=== PATIENT | male | born 1995 | race Caucasian/White ===

== ENCOUNTER 2017-11-16 23:05 | Emergency (ER) | payer MEDICAID ==
[~2017-11-16] VITALS: Ht 5954.8 cm; Wt 68.5 kg
[~2017-11-16 23:05] MED LIST: CEPH500C5 PO; LIT300C PO; OLAN10TA3 PO; OLAN20TA3 PO
[2017-11-17 00:51] LABS: CLARITY,URINE Cloudy (Clear); COLOR,URINE Yellow (Yellow); GLUCOSE, URINE Negative (Neg); KETONES,URINE Negative (Neg); LEUKOCYTE ESTERASE ,URINE Negative (Neg); NITRITES, URINE Negative (Neg); OCCULT BLOOD,URINE Negative (Neg); PH,URINE 7.5 (4.8-8.0); PROTEIN,URINE Negative (Neg)
[2017-11-17 00:53] LABS: UA COLLECTION TYPE NON-SPECIFIED
[2017-11-17 01:01] LABS: AMORPHOUS PHOSPHATES 1+; BACTERIA,URINE FEW /HPF (Neg); MUCUS STRANDS NONE SEEN /LPF (Neg); RBC,URINE 0-2 /HPF (0-2); SQUAMOUS EPITHELIAL CELL,UR NONE SEEN /LPF (FEW); WBC,URINE 0-4 /HPF (0-4)
[2017-11-17 01:03] LABS: URINE AMPHETAMINE SCREEN POSITIVE (Neg); URINE BARBITUATE SCREEN NEGATIVE (Neg); URINE BENZODIAZEPINES SCREEN NEGATIVE (Neg); URINE CANNABINOID SCREEN POSITIVE (Neg); URINE COCAINE SCREEN NEGATIVE (Neg); URINE METHADONE SCREEN NEGATIVE (Neg); URINE OPIATE SCREEN NEGATIVE (Neg); URINE PHENCYCLIDINE SCREEN NEGATIVE (Neg)
[2017-11-17 01:09] LABS: BASOPHILS % (AUTO) 0.7 % (0-1); EOSINOPHILS # (AUTO) 0.1 X10'3 (0-0.9); EOSINOPHILS % (AUTO) 0.8 % (0-6); HEMATOCRIT 40.5 % (42.0-52.0); LYMPHOCYTES # (AUTO) 2.1 X10'3 (1.1-4.8); LYMPHOCYTES % (AUTO) 29.2 % (21-51); MEAN CORPUSCULAR HEMOGLOBIN 30.3 PG (27.0-31.0); MEAN CORPUSCULAR HGB CONC 34.6 % (33.0-36.5); MEAN CORPUSCULAR VOLUME 87.6 FL (78-98); MEAN PLATELET VOLUME 7.9 FL (7.4-10.4); MONOCYTES # (AUTO) 0.6 X10'3 (0-0.9); MONOCYTES % (AUTO) 8.8 % (2-12); NEUTROPHILS # (AUTO) 4.3 X10'3 (1.8-7.7); NEUTROPHILS % (AUTO) 60.5 % (42-75); PLATELET COUNT 205 X10'3 (140-440); RED BLOOD COUNT 4.63 X10'6 (4.70-6.10); RED CELL DISTRIBUTION WIDTH 13.1 % (11.5-14.5); WHITE BLOOD COUNT 7.1 X10'3 (4.5-11.0)
[2017-11-17 01:24] LABS: ALANINE AMINOTRANSFERASE 13 U/L (12-78); ALBUMIN 3.5 G/DL (3.4-5.0); ALBUMIN/GLOBULIN RATIO 1.2 (1.1-1.5); ALKALINE PHOSPHATASE 90 IU/L (46-116); ANION GAP 9 (8-16); ASPARTATE AMINO TRANSFERASE 15 U/L (10-37); BILIRUBIN,TOTAL 0.3 MG/DL (0.1-1.0); BLOOD UREA NITROGEN 17 MG/DL (7-18); CALCIUM 8.7 MG/DL (8.5-10.1); CHLORIDE 109 MMOL/L (99-107); CREATININE 0.63 MG/DL (0.60-1.10); ETHANOL < 0.010 GM/DL (0.0-0.010); GLUCOSE 96 MG/DL (70-104); POTASSIUM 3.9 MMOL/L (3.5-5.1); SODIUM 144 MMOL/L (135-145); TOTAL CARBON DIOXIDE 26.4 MMOL/L (24-32); TOTAL PROTEIN 6.4 G/DL (6.4-8.2); eGFR > 90 ML/MIN
[2017-11-17 10:06] VITALS: BP 94/68
== END 2017-11-17 10:16 | disposition home or self-care (01) ==
LOC: ER 23:06
DX: R45.851 Suicidal ideations (principal); F20.9 Schizophrenia, unspecified; F31.9 Bipolar disorder, unspecified; F12.10 Cannabis abuse, uncomplicated; F15.10 Other stimulant abuse, uncomplicated; F17.200 Nicotine dependence, unspecified, uncomplicated; Z59.0 Homelessness; Z79.899 Other long term (current) drug therapy
CPT/HCPCS: 36415; 80053; 80305; 80320; 81001; 84443; 85025; 99284

== ENCOUNTER 2019-07-05 20:46 | Emergency (ER) | payer MEDICAID ==
[~2019-07-05] VITALS: Ht 180.3 cm; Wt 110.0 kg
[~2019-07-05 20:46] MED LIST changes: -CEPH500C5 PO
[2019-07-05 21:46] LABS: CLARITY,URINE CLEAR (Clear); COLOR,URINE YELLOW (Yellow); GLUCOSE, URINE NEGATIVE (Neg); KETONES,URINE NEGATIVE (Neg); LEUKOCYTE ESTERASE ,URINE NEGATIVE (Neg); NITRITES, URINE NEGATIVE (Neg); OCCULT BLOOD,URINE TRACE-INTACT (Neg); PROTEIN,URINE 30 mg/dl (Neg); UROBILINOGEN,URINE 0.2 E.U/dL (0.2-1.0)
[2019-07-05 21:49] LABS: BASOPHILS % (AUTO) 0.1 % (0-1); EOSINOPHILS % (AUTO) 0 % (0-6); HEMATOCRIT 44.1 % (42.0-52.0); LYMPHOCYTES # (AUTO) 1.1 X10'3 (1.1-4.8); MEAN CORPUSCULAR HEMOGLOBIN 29.9 PG (27.0-31.0); MEAN CORPUSCULAR VOLUME 87.9 FL (78-98); MEAN PLATELET VOLUME 8.5 FL (7.4-10.4); MONOCYTES # (AUTO) 1.5 X10'3 (0-0.9); MONOCYTES % (AUTO) 9.2 % (2-12); NEUTROPHILS # (AUTO) 13.6 X10'3 (1.8-7.7); NEUTROPHILS % (AUTO) 83.7 % (42-75); PLATELET COUNT 226 X10'3 (140-440); RED BLOOD COUNT 5.02 X10'6 (4.70-6.10); RED CELL DISTRIBUTION WIDTH 12.7 % (11.5-14.5); WHITE BLOOD COUNT 16.2 X10'3 (4.5-11.0)
[2019-07-05 21:49] LABS: UA COLLECTION TYPE CLN CATCH MIDSTREAM
--- NOTE | 2019-07-05 21:51 | NUR ---
Patient brought over from main ER bed 9. Patient is calm and cooperative but maintains that he wants to, "cut my arteries."
[2019-07-05 21:53] LABS: BACTERIA,URINE NONE SEEN /HPF (Neg); MUCUS STRANDS FEW /LPF (Neg); RBC,URINE 0-2 /HPF (0-2); SQUAMOUS EPITHELIAL CELL,UR NONE SEEN /LPF (FEW); WBC,URINE NONE SEEN /HPF (0-4)
[2019-07-05 21:54] LABS: ALANINE AMINOTRANSFERASE 24 U/L (12-78); ALBUMIN 4.7 G/DL (3.4-5.0); ALBUMIN/GLOBULIN RATIO 1.3 (1.1-1.5); ALKALINE PHOSPHATASE 114 IU/L (46-116); ANION GAP 12 (8-16); ASPARTATE AMINO TRANSFERASE 22 U/L (10-37); BILIRUBIN,TOTAL 0.5 MG/DL (0.1-1.0); BLOOD UREA NITROGEN 15 MG/DL (7-18); BUN/CREATININE RATIO 10.9 (5.4-32.0); CALCIUM 9.5 MG/DL (8.5-10.1); CHLORIDE 107 MMOL/L (99-107); CREATININE 1.38 MG/DL (0.60-1.10); GLUCOSE 118 MG/DL (70-104); POTASSIUM 3.8 MMOL/L (3.5-5.1); SODIUM 143 MMOL/L (135-145); TOTAL CARBON DIOXIDE 24.4 MMOL/L (24-32); TOTAL PROTEIN 8.2 G/DL (6.4-8.2); eGFR 63 ML/MIN
[2019-07-05] MEDS ORDERED: CLOZ100T31 PO (21:54)
[2019-07-05] MEDS ORDERED: SERT25TA PO (21:54)
[2019-07-05] MEDS ORDERED: CLOZ50TA PO (21:54)
[2019-07-05] MEDS ORDERED: ATOM60CA PO (21:54)
[2019-07-05 22:00] LABS: URINE AMPHETAMINE SCREEN NEGATIVE (Neg); URINE BARBITUATE SCREEN NEGATIVE (Neg); URINE BENZODIAZEPINES SCREEN NEGATIVE (Neg); URINE CANNABINOID SCREEN POSITIVE (Neg); URINE COCAINE SCREEN NEGATIVE (Neg); URINE METHADONE SCREEN NEGATIVE (Neg); URINE OPIATE SCREEN NEGATIVE (Neg); URINE PHENCYCLIDINE SCREEN NEGATIVE (Neg)
--- NOTE | 2019-07-05 22:27 | NUR ---
Patient appears to sleep on left side with even, unlabored breathing.
[2019-07-05 22:37] LABS: ETHANOL < 0.010 GM/DL (0.0-0.010)
--- NOTE | 2019-07-06 | NUR ---
Patient continues to sleep supine.
--- NOTE | 2019-07-06 01:00 | NUR ---
Patient sleeping supine.
--- NOTE | 2019-07-06 02:48 | NUR ---
Patient continues to sleep supine.
--- NOTE | 2019-07-06 04:02 | NUR ---
Patient continues to sleep.
--- NOTE | 2019-07-06 05:19 | NUR ---
Patient is sleeping on his left side with even, unlabored breathing.
--- NOTE | 2019-07-06 06:00 | NUR ---
Patient is sleeping bed laying on back R.R. WNL
--- NOTE | 2019-07-06 08:00 | NUR ---
Patient is sleeping bed laying on back R.R. WNL
[2019-07-06] MEDS: sertraline 50mg tablet PO SCH (09:08)
--- NOTE | 2019-07-06 10:00 | NUR ---
patient in bed walking around every once in a while.
--- NOTE | 2019-07-06 12:00 | NUR ---
patient in bed on left side resting
--- NOTE | 2019-07-06 14:00 | NUR ---
Patient sitting up in bed
--- NOTE | 2019-07-06 16:00 | NUR ---
Lying down in bed
--- NOTE | 2019-07-06 18:00 | NUR ---
resting in bed
--- NOTE | 2019-07-06 18:37 | NUR ---
Assumed care of patient, pt. eating dinner at this time. Appears calm and cooperative
--- NOTE | 2019-07-06 20:30 | NUR ---
Pt. lying in bed at this time after receiving HS snack, he continues to present as pleasant and cooperative, however will laugh aloud to himself at times and appears to be responding to internal stimuli. He denies S/I at this time, and states, "I was just feeling stressed, but I feel better now." Pt. endorses A/V/THOMAS and reports the voices sometimes tell him to hurt himself or, "I see cars crashing." He reports contentment regarding his discharge plan to possibly go to [facility] and states he has been there before.
--- NOTE | 2019-07-06 20:50 | NUR ---
Nursing Note: Verified pt's HS dose of Clozaril (on bottles pt. brought from home) with pharmacy before administering.
[2019-07-06] MEDS: clozapine 25mg tablet PO SCH (20:53)
[2019-07-06] MEDS: clozapine 100mg tablet PO SCH (20:53)
--- NOTE | 2019-07-06 22:35 | NUR ---
Pt. asleep on his left side at this time, rr even and unlabored.
--- NOTE | 2019-07-07 00:39 | NUR ---
Pt. continues to sleep, laying on her right side at this time.
--- NOTE | 2019-07-07 02:03 | NUR ---
PT SLEEPING PEACFULLY , UNLABORED RESP, ON HIS RIGHT SIDE. IMDEPENDENTLY REPOSITIONS.
--- NOTE | 2019-07-07 02:33 | NUR ---
Pt. sleeping on his rt. side at this time, rr even and unlabored, will continue to monitor.
--- NOTE | 2019-07-07 04:33 | NUR ---
Pt. continues to appear to be resting comfortably, will continue to monitor.
--- NOTE | 2019-07-07 06:00 | NUR ---
Pt. asleep on his rt. side, rr even and unlabored
[2019-07-07] MEDS: sertraline 50mg tablet PO SCH (08:21)
[2019-07-07] MEDS ORDERED: LORazepam 1 MG tablet PO ONE (09:50)
--- NOTE | 2019-07-07 11:24 | NUR ---
Pt resting comfortably with eyes closed.
--- NOTE | 2019-07-07 12:58 | NUR ---
Pt talking with [facility] to discuss discharge plan.
--- NOTE | 2019-07-07 14:04 | NUR ---
Pt. currently sitting up in bed and resting. He is requesting extra food for lunch. Per primary RN, pt. recently received a snack after his lunch. Order for second tray has already been requested. Pt. made aware of this.
--- NOTE | 2019-07-07 14:41 | NUR ---
Pt resting in bed with eyes closed, unlabored breathing, RR even.
[2019-07-07] MEDS ORDERED: LORazepam 1 MG tablet PO PRN (16:20)
--- NOTE | 2019-07-07 16:45 | NUR ---
Operational Communication Chief noticed signs of anxiety aeb wringing of wrists and hypervigilance. Operational Communication Chief dispensed PRN Ativan. Pt thankful.
--- NOTE | 2019-07-07 18:35 | NUR ---
Patient reclining in bed awake. No distress observed. Continue to monitor.
--- NOTE | 2019-07-07 19:15 | NUR ---
Patient awake and alert. Patient states he is homeless and has been homeless for a long time. Patient states he doesn't have any family. Patient states he is depressed and suicidal off and on. Continue to monitor.
--- NOTE | 2019-07-07 20:10 | NUR ---
RN gave patient a sandwich and apple sauce. Continue to monitor.
[2019-07-07] MEDS: clozapine 100mg tablet PO SCH (20:55)
[2019-07-07] MEDS: clozapine 25mg tablet PO SCH (20:56)
--- NOTE | 2019-07-07 21:30 | NUR ---
Patient given a snack. No distress observed. Continue to monitor.
--- NOTE | 2019-07-07 23:03 | NUR ---
Pathe sleeping on right side. No distress observed. Continue to monitor.
--- NOTE | 2019-07-08 01:18 | NUR ---
Patient sleeping on left side. No distress observed. Continue to monitor.
--- NOTE | 2019-07-08 02:27 | NUR ---
Patient sleeping on left side. No distress observed. Continue to monitor.
--- NOTE | 2019-07-08 03:26 | NUR ---
Patient sleeping supine. No distress observed. Continue to monitor.
--- NOTE | 2019-07-08 04:08 | NUR ---
Patient up and asking for food. No food in fridge. Patient got a sandwich and applesauce for snack and then later another applesauce. Patient advised breakfast at 0800. Patient went back to bed. Continue to monitor.
--- NOTE | 2019-07-08 07:00 | NUR ---
Pt sleeping in bed on left side.
--- NOTE | 2019-07-08 07:48 | NUR ---
pt is laying on left side asleep, no distress.
[2019-07-08] MEDS: sertraline 50mg tablet PO SCH (08:04)
--- NOTE | 2019-07-08 09:00 | NUR ---
Woke up and ate breakfast. Took med without difficulty. Does not answer questions appropriately.
--- NOTE | 2019-07-08 09:12 | NUR ---
pt is sitting up on the side of the bed.
[2019-07-08 11:19] VITALS: BP 105/58
== END 2019-07-08 11:22 | disposition home or self-care (01) ==
LOC: ER 20:46
DX: R45.851 Suicidal ideations (principal); D75.1 Secondary polycythemia; F31.9 Bipolar disorder, unspecified; F20.9 Schizophrenia, unspecified; F12.90 Cannabis use, unspecified, uncomplicated; F15.90 Other stimulant use, unspecified, uncomplicated; Z79.899 Other long term (current) drug therapy; Z59.0 Homelessness
CPT/HCPCS: 36415; 80053; 80305; 80320; 81001; 84443; 85025; 99285

== ENCOUNTER 2019-07-08 10:09 | Inpatient (IN) | payer MEDICAID ==
[~2019-07-08] VITALS: Ht 180.3 cm; Wt 108.7 kg
[~2019-07-08 10:09] MED LIST changes: +ATOM60CA PO; +CLOZ100T31 PO; +CLOZ50TA PO; -LIT300C PO; -OLAN10TA3 PO; -OLAN20TA3 PO; +SERT25TA PO
[2019-07-08] MEDS ORDERED: loperamide 2mg capsule PO PRN (10:20)
[2019-07-08] MEDS ORDERED: magnesium hydroxide 30ml (MOM) UD suspension PO PRN (10:20)
[2019-07-08] MEDS ORDERED: NICOTINE POLACRILEX 2 MG LOZENGE BC PRN (10:20)
[2019-07-08] MEDS ORDERED: mag hydrox/Alum hydrox/simeth 30ml oral suspension PO PRN (10:20)
[2019-07-08] MEDS ORDERED: acetaminophen 325mg tablet PO PRN ×2 (10:20)
--- NOTE | 2019-07-08 11:25 | NUR ---
Client escorted to [facility] by ERICH Bermudez), two members of Security as well as this mortgage or loan underwriter. Client contracted verbally for safe transfer and unit behaviors. Current 5150 presented to CRN. Client is admitted as a Gravely Disabled adult. Initial assessment reveals a gentleman who is internally preoccupied but redirects with ease.Safety search conducted by ERICH Fuller x 2 per unit protocol. Belongings were stored per protocol. Client was escorted to shower and given instructions to shower and he complied with the request. Skin check was conducted nothing significant was identified.Client behavior is appropriate for unit and he did get verbal and physical orientation from Staff. Assessments will be conducted by this mortgage or loan underwriter. MRSA swab will be collected and sent for processing. Addendum: 07/08/19 at 1150 by Juan Craig) LUIS FERNANDO Pt admitted at 1125. Pt unable to adequately care for himself. Current safety plan consists of utilizing the Emergency room for food and assisted. Pt has possible diagnosis of paranoid schizophrenia. Pt has been found incompetent to stand trial and was admitted to [facility] as a result of being deemed gravely disabled. Pt unable to gain access to his most basic needs and is gravely disabled as a result of a mental health disorder.
[2019-07-08] MEDS: sertraline 50mg tablet PO SCH (11:30)
--- NOTE | 2019-07-08 11:51 | NUR ---
Acceptance: Edu Cornejoperrifelisa called and pt has been accepted at the [facility] after stabilized here.
[2019-07-08 12:48] VITALS: BP 149/94
--- NOTE | 2019-07-08 16:29 | NUR ---
Nursing Progress Note: Scotty Legal hold: 5150 Client on involuntary status for GD Report received from [facility] with use of SB[facility] Why are they here: Pt admitted for GD after he stopped taking his meds and was unable to motivate a plan for his own care. Client was recently admitted to [facility] as incompetant to stand trial. Assessment What has happened this shift: Assumed care of this client during admission process. Client appears internally preoccupied and will laugh at inappropriate times. Client was visible on unit this afternoon and was ambulating while socializing with both staff and peers alike. Admission assessment was conducted and client is fully admitted to Behavioral Health Unit. No behavior issues noted but client needs redirection at times. He verbally contracted for safe unit behaviors. No somatic complaints as of this writing (1507 hours). Client has been visible and social on the unit this afternoon. He smiles and greets both staff and peers and his behaviors have been appropriate. S/I, H/I: Denies A/VH: Denies, however appears internally preoccupied at times. Sleep: ADL's: Pt. requires some direction and prompting from staff Group attendance: no Were meds taken: Yes Any med S/E: no Mental Status Exam Appearance: Hair disheveled, pt. appropriately dressed Eye contact: Fair Behavior: Cooperative, impulsive Speech: pressured, pt. Mood: Affect: Labile Thought process: disorganized Thought Content: Cognition: A&O X4 Insight: Poor Judgment: Poor Interventions: PRN's used: nicotine lozenge Therapeutic interventions: Introduced self and established rapport, maintained a safe and therapeutic environment, ensured contract for safety, provided clear and simple instructions, attempted to reorient to reality, encouraged independent performance of ADLs, monitored behavior and need for intervention, and maintained Q 15 min safety checks. Restraints/seclusion/emergency medication: N/A
[2019-07-08] MEDS: hydrOXYzine 25 MG tablet PO PRN (16:59)
[2019-07-08] MEDS: LORazepam 1 MG tablet PO PRN (16:59)
[2019-07-08 20:00] VITALS: BP 139/87
[2019-07-08] MEDS: clozapine 25mg tablet PO SCH (20:36)
[2019-07-08] MEDS: clozapine 100mg tablet PO SCH (20:38)
--- NOTE | 2019-07-09 04:08 | NUR ---
Nursing Progress Note: Legal hold: 5150 Client on involuntary status for GD Report received from [facility] nurse with use of SBAR Why are they here: Pt admitted for GD after he stopped taking his meds and was unable to motivate a plan for his own care. Client was recently admitted to [facility] as incompetent to stand trial. Assessment What has happened this shift: Pt up and visible on the unit, pacing or sitting in dayroom. Pt pleasant upon approach. Pt stated he is here because he was hearing things in his head, but denies current internal stimuli. Pt denies suicidal thoughts. Pt also pleasant while interacting with peers. Pt up for snacks and then fell asleep at 2315. S/I, H/I: Denies A/VH: Denies, however appears internally preoccupied at times. Sleep: ADL's: Pt. requires some direction and prompting from staff Group attendance: no Were meds taken: Yes Any med S/E: no Mental Status Exam Appearance: Hair disheveled, pt. appropriately dressed Eye contact: Fair Behavior: Cooperative, impulsive Speech: pressured, pt. Mood: Affect: Labile Thought process: disorganized Thought Content: Cognition: A&O X4 Insight: Poor Judgment: Poor Interventions: PRN's used: nicotine lozenge Therapeutic interventions: Introduced self and established rapport, maintained a safe and therapeutic environment, ensured contract for safety, provided clear and simple instructions, attempted to reorient to reality, encouraged independent performance of ADLs, monitored behavior and need for intervention, and maintained Q 15 min safety checks. Restraints/seclusion/emergency medication: N/A
[2019-07-09 06:53] LABS: CHOL/HDL RATIO 3.1 (0.00-4.99); CHOLESTEROL 115 MG/DL (0-200); HDL CHOLESTEROL 37 MG/DL (35-60); LDL CHOLESTEROL 77 MG/DL (50-100); TRIGLYCERIDES 51 MG/DL (20-135)
[2019-07-09 07:51] VITALS: BP 127/81
[2019-07-09] MEDS: sertraline 50mg tablet PO SCH (08:03)
[2019-07-09] MEDS: LORazepam 1 MG tablet PO PRN (15:12)
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
[2019-07-09] MEDS: hydrOXYzine 25 MG tablet PO PRN (18:21)
[2019-07-09 20:00] VITALS: BP 179/80
[2019-07-09] MEDS: clozapine 25mg tablet PO SCH (20:25)
[2019-07-09] MEDS: clozapine 100mg tablet PO SCH (20:25)
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
[2019-07-10] MEDS: sertraline 50mg tablet PO SCH (07:49)
[2019-07-10 07:51] VITALS: BP 117/78
[2019-07-10] MEDS: hydrOXYzine 25 MG tablet PO PRN ×2 (12:11→22:09)
[2019-07-10] MEDS: LORazepam 1 MG tablet PO PRN (12:11)
--- NOTE | 2019-07-10 16:14 | NUR ---
Nursing Progress Note: Scotty Legal hold: 5150 Client on involuntary status for GD Report received from Avril Mueller with use of SBAR Why are they here: Pt admitted for GD after he stopped taking his meds and was unable to motivate a plan for his own care. Client was recently admitted to [facility] as incompetent to stand trial. Assessment What has happened this shift: Client in bed resting to begin the shift. Compliant with assessment, vitals and medications. Client attended morning Group and did participate. Client was beginning to get agitated about noon and was actively responding to internal stimuli. He was medicated with PRN medications and has had no behavioral issues as of this writing (1344 hours). Pt observed to be in bed resting with eyes closed at 1400 hours today. S/I, H/I: Denies A/VH: Denies, however appears internally preoccupied at times. Sleep: rested at times during shift. ADL's: Pt. requires some direction and prompting from staff Group attendance: no Were meds taken: Yes Any med S/E: no Mental Status Exam Appearance: Hair disheveled, pt. appropriately dressed Eye contact: Fair Behavior: Cooperative, impulsive Speech: Pressured speech Mood: Calm but anxious, labile at times. Affect: Flat Thought process: Linear but thought blocking. Thought Content: Poverty of thought Cognition: A&O X4 Insight: Poor Judgment: Poor Interventions: PRN's used: Ativan, Atarax Therapeutic interventions: Introduced self and established rapport, maintained a safe and therapeutic environment, ensured contract for safety, provided clear and simple instructions, attempted to reorient to reality, encouraged independent performance of ADLs, monitored behavior and need for intervention, and maintained Q 15 min safety checks. Addendum: 07/10/19 at 1635 by Baldev Franklin RN Client remains in bed with eyes closed and no sign or symptoms of distress or problems.([id number])
[2019-07-10 19:53] VITALS: BP 147/81
[2019-07-10] MEDS: clozapine 25mg tablet PO SCH (20:22)
[2019-07-10] MEDS: clozapine 100mg tablet PO SCH (20:23)
--- NOTE | 2019-07-10 21:10 | NUR ---
Nursing Progress Note: Scotty Legal hold: 5150 Client on involuntary status for GD Report received from Juan with use of SBAR Why are they here: Pt admitted for GD after he stopped taking his meds and was unable to motivate a plan for his own care. Client was recently admitted to [facility] as incompetent to stand trial. Assessment What has happened this shift: Client up watching football to begin the shift. Compliant with assessment, vitals and medications. Client attended morning Group and did participate. Client was social and showed no signs of agitation and reports the voices are not bothering him at this time. S/I, H/I: Denies A/VH: Denies, however appears internally preoccupied at times. Sleep: rested at times during shift. ADL's: Pt. requires some direction and prompting from staff Group attendance: no Were meds taken: Yes Any med S/E: no Mental Status Exam Appearance: Hair disheveled, pt. appropriately dressed Eye contact: Fair Behavior: Cooperative, impulsive Speech: Pressured speech Mood: Calm but anxious, labile at times. Affect: Flat Thought process: Linear but thought blocking. Thought Content: Poverty of thought Cognition: A&O X4 Insight: Poor Judgment: Poor Interventions: PRN's used: Therapeutic interventions: Introduced self and established rapport, maintained a safe and therapeutic environment, ensured contract for safety, provided clear and simple instructions, attempted to reorient to reality, encouraged independent performance of ADLs, monitored behavior and need for intervention, and maintained Q 15 min safety checks.
[2019-07-11 07:28] LABS: BASOPHILS % (AUTO) 0.3 % (0-1); EOSINOPHILS # (AUTO) 0.2 X10'3 (0-0.9); HEMOGLOBIN 14.4 g/dl (14.0-17.9); MONOCYTES # (AUTO) 1.4 X10'3 (0-0.9); RED BLOOD COUNT 4.83 X10'6 (4.70-6.10)
[2019-07-11 07:30] LABS: EOSINOPHILS % (AUTO) 1.3 % (0-6); HEMATOCRIT 43.4 % (42.0-52.0); LYMPHOCYTES # (AUTO) 1.9 X10'3 (1.1-4.8); MEAN CORPUSCULAR HEMOGLOBIN 29.8 PG (27.0-31.0); MEAN CORPUSCULAR HGB CONC 33.2 g/dL (33.0-36.5); MEAN CORPUSCULAR VOLUME 89.7 FL (78-98); MEAN PLATELET VOLUME 8.5 FL (7.4-10.4); MONOCYTES % (AUTO) 10.2 % (2-12); NEUTROPHILS # (AUTO) 10.1 X10'3 (1.8-7.7); NEUTROPHILS % (AUTO) 74.2 % (42-75); PLATELET COUNT 209 X10'3 (140-440); RED CELL DISTRIBUTION WIDTH 12.9 % (11.5-14.5); WHITE BLOOD COUNT 13.7 X10'3 (4.5-11.0)
[2019-07-11 08:00] VITALS: BP 109/57
--- NOTE | 2019-07-11 08:07 | NUR ---
Met with Ct to complete Psychosocial Assessment. He was in bed and answered questions appropriately. He reported he was released from [place] on 07/06/19 and transported to [place]. He has no income, no housing, and is not connected to any mental health services. He reported he would like to go to [facility] upon discharge. Ticket Chopper Assembler will complete [facility] referral. MATTHIEU Strange Addendum: 07/11/19 at 0811 by Spring iYng Amended: Links added.
[2019-07-11] MEDS: sertraline 50mg tablet PO SCH (08:13)
--- NOTE | 2019-07-11 11:21 | NUR ---
Discharge Planning Called [facility] office to see if a [facility] referral had been done. Gina did a [facility] referral. Truck Despatcher will complete Physician's Report and request a PPD. MATTHIEU Strange
[2019-07-11] MEDS ORDERED: tuberculin, purif. prot. deriv. 5 units/0.1ml ID ONE (11:55)
--- NOTE | 2019-07-11 13:13 | NUR ---
Completed Physician's Report and MIRI Cristina, signed it. Faxed to JUDI office.Will fax PPD results once it is read. Ct will need to walk-in through [facility] to start services per JUDI Eng. MATTHIEU Strange
--- NOTE | 2019-07-11 16:49 | NUR ---
Nursing Progress Note: Legal hold: 5150 Client on involuntary status for GD Report received from Yolanda with use of SBAR Why are they here: Pt admitted for GD after he stopped taking his meds and was unable to motivate a plan for his own care. Client was recently admitted to [facility] as incompetent to stand trial. Assessment What has happened this shift: Patient is observed sleeping at dietrich eof shift. He wakes and joins others in the group room for breakfast. He is friendly and smiling. He states that he is doing well. He reports that he slept well the night before. He takes his medication without any issue. He spends most of the day isolating in his room with the blankets pulled up to his chin. During conversation patient is calm and states that he is fine, he denies any issue. PPD placed in patients RFA at 1250 A/VH: Denies, however appears internally preoccupied at times. Sleep: rested at times during shift. ADL's: Pt. requires some direction and prompting from staff Group attendance: no Were meds taken: Yes Any med S/E: no Mental Status Exam Appearance: Hair disheveled, pt. appropriately dressed Eye contact: direct Behavior: Cooperative Speech: soft tone, normal rate and rythm Mood: Calm Affect: bright Thought process: Linear Thought Content: Poverty of thought Cognition: A&O X4 Insight: Poor Judgment: Poor Interventions: PRN's used: none Therapeutic interventions: 1:1 therapeutic assessment, maintained safe therapeutic milieu, provided active listening with positive reinforcement, provided medication administration/education/monitoring as needed; Q15 safety checks. Restraints/seclusion/emergency medication: N/A Justification of Continued Inpatient Treatment: Continued therapeutic support and medication management needed to provide stabilization, prevent decompensation, improve coping mechanisms decreasing risk to patient and re-admittance. Addendum: 07/11/19 at 1718 by Susie Mishra RN Patient observed walking the jama and talking to self. He stated "Shes having her period, its red and brown blood."
[2019-07-11] MEDS: hydrOXYzine 25 MG tablet PO PRN (19:05)
[2019-07-11 20:00] VITALS: BP 141/83
[2019-07-11] MEDS: clozapine 25mg tablet PO SCH (20:28)
[2019-07-11] MEDS: clozapine 100mg tablet PO SCH (20:28)
[2019-07-11 21:05] VITALS: BP 141/83
--- NOTE | 2019-07-11 23:52 | NUR ---
Nursing Progress Note: Legal hold: 5150 Client on involuntary status for GD Report received from Susie with use of SBAR Why are they here: Pt admitted for GD after he stopped taking his meds and was unable to motivate a plan for his own care. Client was recently admitted to [facility] as incompetent to stand trial. Assessment What has happened this shift: Pt is anxiously pacing in the jama at change of shift, smiling brightly. Pt states he is here because he was having suicidal thoughts but is no longer having them. Pt then adds that he was seeing "trippy things like starships and lights, its was pretty cool really". Pt denies a/vh now but is internally preoccupied and isolates to himself. Pt reports appetite and sleep are good. Pt is med compliant. A/VH: Denies, however appears internally preoccupied at times. Sleep: reports sleeping well ADL's: Pt. requires some direction and prompting from staff Group attendance: no Were meds taken: Yes Any med S/E: no Mental Status Exam Appearance: Hair disheveled, pt. appropriately dressed Eye contact: direct Behavior: Cooperative Speech: soft tone, normal rate and rythm Mood: euthymic Affect: bright Thought process: Linear Thought Content: Poverty of thought Cognition: A&O X4 Insight: Poor Judgment: Poor Interventions: PRN's used: none Therapeutic interventions: 1:1 therapeutic assessment, maintained safe therapeutic milieu, provided active listening with positive reinforcement, provided medication administration/education/monitoring as needed; Q15 safety checks. Restraints/seclusion/emergency medication: N/A Justification of Continued Inpatient Treatment: Continued therapeutic support and medication management needed to provide stabilization, prevent decompensation, improve coping mechanisms decreasing risk to patient and re-admittance.
[2019-07-12 07:46] VITALS: BP 97/65
[2019-07-12] MEDS: sertraline 50mg tablet PO SCH (08:20)
--- NOTE | 2019-07-12 10:36 | NUR ---
Initial: Pt admit with schizophrenia currently on a regular diet documented with 75-100% PO intake meeting nutrient needs. LBM 07/11. No edema or wounds. No nutrition diagnosis at this time. Will continue to follow. Recommendations: 1) Continue regular diet 2) Bowel care PRN 3) Weekly wts Addendum: 07/12/19 at [address] Amended: Links added.
--- NOTE | 2019-07-12 13:15 | NUR ---
DISCHARGE PLANNING Ct has been accepted at [facility]. Spoke to Augustine who confirmed this and stated Ct can be admitted tomorrow with 30 days of meds. Will coordinate with [facility] office tomorrow for Ct's admittance once meds have been delivered. MATTHIEU Strange
[2019-07-12] MEDS ORDERED: CLOZ100T13 PO (13:38)
[2019-07-12] MEDS ORDERED: NICO-668 BC (13:38)
[2019-07-12] MEDS ORDERED: CLOZ25TA12 PO (13:38)
[2019-07-12] MEDS ORDERED: SERT50TA10 PO (13:38)
[2019-07-12] MEDS: hydrOXYzine 25 MG tablet PO PRN (15:22)
--- NOTE | 2019-07-12 16:12 | NUR ---
Nursing Progress Note: Legal hold: 5150 Client on involuntary status for GD Report received from Yolanda with use of SBAR Why are they here: Pt admitted for GD after he stopped taking his meds and was unable to motivate a plan for his own care. Client was recently admitted to [facility] as incompetent to stand trial. Assessment What has happened this shift: Patient is observed sleeping at change of shift. This RN woke patient for breakfast. He wakes up smiling and states that he slept well. He takes his medications without issue and joins others in the group room to eat. He charges his ankle monitor while coloring with peers. He gets along well with others and joins in on activities. Patient request to shave. He is polite and uses good manners. RN observes patient talking to self in the jama, patient denies A/H or any needs/issues. When answering questions patient pauses before answers and often smiles and nods. In the afternoon, patient approaches this RN stating I need some medications, and reports that his head is spinning. RN administered atarax. A/VH: Denies, however appears internally preoccupied at times. Sleep: 8hrs NOC ADL's: patient shaved today Group attendance: yes Were meds taken: Yes Any med S/E: no Mental Status Exam Appearance: hair brushed, pt. appropriately dressed Eye contact: direct Behavior: Cooperative, friendly Speech: soft tone, normal rate and rhythm Mood: happy Affect: bright Thought process: Linear Thought Content: Poverty of thought Cognition: A&O X4 Insight: Poor Judgment: Poor Interventions: PRN's used: atarax for anxiety Therapeutic interventions: 1:1 therapeutic assessment, maintained safe therapeutic milieu, provided active listening with positive reinforcement, provided medication administration/education/monitoring as needed; Q15 safety checks. Restraints/seclusion/emergency medication: N/A Justification of Continued Inpatient Treatment: Continued therapeutic support and medication management needed to provide stabilization, prevent decompensation, improve coping mechanisms decreasing risk to patient and re-admittance.
[2019-07-12] MEDS: clozapine 25mg tablet PO SCH (20:02)
[2019-07-12] MEDS: clozapine 100mg tablet PO SCH (20:02)
[2019-07-12 20:07] VITALS: BP 144/69
--- NOTE | 2019-07-12 21:54 | NUR ---
Nursing Progress Note: Legal hold: 5150 Client on involuntary status for GD Report received from Stu with use of SBAR Why are they here: Pt admitted for GD after he stopped taking his meds and was unable to motivate a plan for his own care. Client was recently admitted to [facility] as incompetent to stand trial. Assessment What has happened this shift: Pt was in the hallway at change of shift. Pt spent time socializing with other patients in the group room. Pt is smiling and pleasant, states he is doing good and denies s/i. He denies a/vh, but appears internally preoccupied at times. Pt reports some anxiety about going to the [facility] but he has been there before and thinks it will be a good place for him. pt reports sleeping well last night and he is appetite is good, pt is med compliant, has snacks before going to bed. A/VH: Denies, however appears internally preoccupied at times. Sleep: sleeps well ADL's: independent Group attendance: no evening groups, Were meds taken: Yes Any med S/E: no Mental Status Exam Appearance: adequately groomed and dressed Eye contact: direct Behavior: Cooperative, friendly Speech: soft tone, normal rate and rhythm Mood: euthymic Affect: bright Thought process: Linear Thought Content: Poverty of thought Cognition: A&O X4 Insight: Poor Judgment: Poor Interventions: PRN's used: none Therapeutic interventions: 1:1 therapeutic assessment, maintained safe therapeutic milieu, provided active listening with positive reinforcement, provided medication administration/education/monitoring as needed; Q15 safety checks. Restraints/seclusion/emergency medication: N/A Justification of Continued Inpatient Treatment: Continued therapeutic support and medication management needed to provide stabilization, prevent decompensation, improve coping mechanisms decreasing risk to patient and re-admittance.
[2019-07-13 07:37] VITALS: BP 119/70
[2019-07-13] MEDS: sertraline 50mg tablet PO SCH (08:21)
--- NOTE | 2019-07-13 14:49 | NUR ---
Nursing Discharge Note Patient is escorted off the unit at 1301 accompanied by this RN and [facility] boom truck driver. Patient will be transported to [facility]. All valuables, including medications are provided back to patient. Followup instructions are gone over with patient and printed handout provided. Patient states that he feels good and is happy that he came here. He states that he was not feeling well. Patients mood is happy and his affect is bright, he has improved since admit. Patient is not under any physical or emotional distress. Nicotine replacement provided to patient.
== END 2019-07-13 13:01 | disposition short-term general hospital (02) | DRG 750 ==
LOC: ADULT MH 10:09
PROVIDERS: ADMIT Psychiatry & Neurology Psychiatry; ATTEND Psychiatry & Neurology Psychiatry
DX: F20.9 Schizophrenia, unspecified (principal); R45.851 Suicidal ideations; Z59.0 Homelessness; F17.210 Nicotine dependence, cigarettes, uncomplicated; F32.9 Major depressive disorder, single episode, unspecified; Z79.899 Other long term (current) drug therapy
CPT/HCPCS: 36415; 80061; 83036; 85025; 87081; 99285; Z7610

== ENCOUNTER 2019-07-18 19:18 | Emergency (ER) | payer MEDICAID, OTHER ==
[~2019-07-18] VITALS: Ht 180.3 cm; Wt 100.0 kg
[~2019-07-18 19:18] MED LIST changes: -ATOM60CA PO; +CLOZ100T13 PO; -CLOZ100T31 PO; +CLOZ25TA12 PO; -CLOZ50TA PO; +NICO-668 BC; -SERT25TA PO; +SERT50TA10 PO
[2019-07-18 20:41] LABS: BASOPHILS % (AUTO) 0.3 % (0-1); EOSINOPHILS # (AUTO) 0.2 X10'3 (0-0.9); HEMATOCRIT 41.4 % (42.0-52.0); HEMOGLOBIN 13.9 g/dl (14.0-17.9); LYMPHOCYTES # (AUTO) 1.5 X10'3 (1.1-4.8); LYMPHOCYTES % (AUTO) 9.9 % (21-51); MEAN CORPUSCULAR HEMOGLOBIN 29.7 PG (27.0-31.0); MEAN CORPUSCULAR HGB CONC 33.7 g/dL (33.0-36.5); MEAN CORPUSCULAR VOLUME 88.1 FL (78-98); MEAN PLATELET VOLUME 8.4 FL (7.4-10.4); MONOCYTES # (AUTO) 1.6 X10'3 (0-0.9); MONOCYTES % (AUTO) 10.4 % (2-12); NEUTROPHILS # (AUTO) 12.3 X10'3 (1.8-7.7); NEUTROPHILS % (AUTO) 78.4 % (42-75); PLATELET COUNT 242 X10'3 (140-440); RED BLOOD COUNT 4.69 X10'6 (4.70-6.10); RED CELL DISTRIBUTION WIDTH 12.9 % (11.5-14.5); WHITE BLOOD COUNT 15.7 X10'3 (4.5-11.0)
[2019-07-18 20:46] LABS: URINE AMPHETAMINE SCREEN NEGATIVE (Neg); URINE BARBITUATE SCREEN NEGATIVE (Neg); URINE BENZODIAZEPINES SCREEN NEGATIVE (Neg); URINE CANNABINOID SCREEN POSITIVE (Neg); URINE COCAINE SCREEN NEGATIVE (Neg); URINE METHADONE SCREEN NEGATIVE (Neg); URINE OPIATE SCREEN NEGATIVE (Neg); URINE PHENCYCLIDINE SCREEN NEGATIVE (Neg)
[2019-07-18 20:48] LABS: ALANINE AMINOTRANSFERASE 45 U/L (12-78); ALBUMIN 3.9 G/DL (3.4-5.0); ALBUMIN/GLOBULIN RATIO 1.1 (1.1-1.5); ALKALINE PHOSPHATASE 130 IU/L (46-116); ANION GAP 12 (8-16); ASPARTATE AMINO TRANSFERASE 52 U/L (10-37); BILIRUBIN,TOTAL 0.5 MG/DL (0.1-1.0); BLOOD UREA NITROGEN 21 MG/DL (7-18); BUN/CREATININE RATIO 21.4 (5.4-32.0); CHLORIDE 103 MMOL/L (99-107); CREATININE 0.98 MG/DL (0.60-1.10); GLUCOSE 102 MG/DL (70-104); POTASSIUM 3.4 MMOL/L (3.5-5.1); SODIUM 140 MMOL/L (135-145); TOTAL CARBON DIOXIDE 25.3 MMOL/L (24-32); TOTAL PROTEIN 7.5 G/DL (6.4-8.2); eGFR > 90 ML/MIN
[2019-07-18 20:57] LABS: ETHANOL < 0.010 GM/DL (0.0-0.010)
--- NOTE | 2019-07-18 21:30 | NUR ---
pt sitting up in bed, frequently moving his hands in bizarre fashion. occasionally quietly laughs or talks aloud. pt came in with elevated HR. Carlos A STANFORD called and asked for pt to drink a pitcher of water and retake HR. it is now 105.
--- NOTE | 2019-07-18 23:11 | NUR ---
pt sleeping on his back. resp even/unlabored
--- NOTE | 2019-07-19 00:56 | NUR ---
another pt in overflow across the room made claims this pt was touching himself innapropriately under blanket. did not actively see this however I approached pt and told him he is in the hospital with other patients in the unit and he should not be doing anything innappropriate to which he replied "yes ma'am". pt returned to sleep with hands on chest. resp even/unlabored
--- NOTE | 2019-07-19 02:24 | NUR ---
pt continues sleeping on back. resp even/unlabored
--- NOTE | 2019-07-19 04:15 | NUR ---
pt sleeping on right side. resp even/unlabored
[2019-07-19 05:55] VITALS: BP 98/59
--- NOTE | 2019-07-19 05:58 | NUR ---
VS obtained. pt back to sleep on his side
--- NOTE | 2019-07-19 07:10 | NUR ---
PACKET FAXED TO [facility]
--- NOTE | 2019-07-19 07:21 | NUR ---
ASSUMED CARE OF THIS PT. HE IS RESTING IN BED PEACEFULLY AT THIS TIME. NO DISTRESS NOTED OR OBSERVED. WILL CONTINUE TO MONITOR.
--- NOTE | 2019-07-19 08:54 | NUR ---
PT IS MINISTERIO JUSTICULATING AND SHAKING HIS HANDS. HE ATE HIS BREAKFAST AND IS PLEASANT AND COOPERATIVE WITH CARE. HE IS SEEN AMBULATING TO THE BATHROOM AND HAS A WIDE GAIT, CONTINUES TO GESTICULATE, SNAPS HIS FINGERS AND APPEARS TO BE RESPONDING TO INTERNAL STIMULI, LAUGHING INAPPROPRIATELY AND TALKING TO PEOPLE WHO ARE NOT THERE. WILL CONTINUE TO MONITOR.
--- NOTE | 2019-07-19 10:24 | NUR ---
LLUVIA Argueta is at bedside evaluating the Pt. No distress observed. Prior to evaluation this ticket writer helped the Pt wipe down his body with cleansing wipes. Pt has an ankle monitor on his left ankle. Will continue to monitor.
--- NOTE | 2019-07-19 11:05 | NUR ---
Pt laying in bed with continued gesticulation. He is pleasant and cooperative. No distress observed. Will continue to monitor.
--- NOTE | 2019-07-19 12:44 | NUR ---
Pt is sitting in bed eating his lunch right now. He is still exhibiting bizarre behavior, gesticulating, rocking back and forth, and laughing intermittently. Will continue to monitor.
--- NOTE | 2019-07-19 13:37 | NUR ---
pt awake and sitting on the edge of bed. no needs at this time
== END 2019-07-19 14:09 ==
LOC: ER 19:19
DX: F29 Unspecified psychosis not due to a substance or known physiological condition (principal); F31.9 Bipolar disorder, unspecified; F20.9 Schizophrenia, unspecified; F17.200 Nicotine dependence, unspecified, uncomplicated; F12.90 Cannabis use, unspecified, uncomplicated; F15.90 Other stimulant use, unspecified, uncomplicated; F10.99 Alcohol use, unspecified with unspecified alcohol-induced disorder; Z59.0 Homelessness; Z79.899 Other long term (current) drug therapy; Y90.9 Presence of alcohol in blood, level not specified
CPT/HCPCS: 36415; 80053; 80305; 80320; 85025; 99285

== ENCOUNTER 2019-07-19 11:48 | Inpatient (IN) | payer MEDICAID ==
[~2019-07-19] VITALS: Ht 180.3 cm; Wt 115.3 kg
[2019-07-19] MEDS ORDERED: sertraline 50mg tablet PO ONE (15:25)
[2019-07-19] MEDS ORDERED: LORazepam 1 MG tablet PO PRN (15:50)
[2019-07-19] MEDS ORDERED: magnesium hydroxide 30ml (MOM) UD suspension PO PRN (15:50)
[2019-07-19] MEDS ORDERED: loperamide 2mg capsule PO PRN (15:50)
[2019-07-19] MEDS ORDERED: mag hydrox/Alum hydrox/simeth 30ml oral suspension PO PRN (15:50)
[2019-07-19] MEDS: OLANZapine 5mg rapidly disint. tablet PO PRN (16:22)
[2019-07-19] MEDS: LORazepam 1 MG tablet PO PRN ×2 (16:22→20:39)
--- NOTE | 2019-07-19 16:54 | NUR ---
NURSING ADMISSION NOTE Pt was admitted to [facility] on 07/19/2019 at 1410 from ED. Pt came up with minimal belongings which were inventoried. 2RN skin check was completed, pt has blisters on his feet bilaterally, pictures are in chart. PT showered and clothing was changed upon arrival. Pt is psychotic and difficult to interview d/t constant AH VH which are bothersome to him. Pt is cooperative and pleasant despite his poor attention span. Pt is a poor historian. 5150 for GD advisement completed. Pt states that he is "Messed in the head." Pt has poor insight and is unable to recall short term memory AEB not remembering why he stopped taking medications on 07/15 and why he left the [facility] without returning on the . Pt is found talking to pictures in the hallways and contorting his body in a bizarre fashion. Zyprexa Zydis and Ativan PRN were administered.
[2019-07-19 20:00] VITALS: BP 111/60
[2019-07-19] MEDS: clozapine 25mg tablet PO SCH (20:37)
[2019-07-19] MEDS: clozapine 100mg tablet PO SCH (20:37)
--- NOTE | 2019-07-20 00:32 | NUR ---
Nursing Progress Note: Legal hold: 5150 Client on involuntary status for GD Report received from nurse with use of SBAR: Stu RN Why are they here: Pt presents to the ER with psychosis and is a poor historian. He reports constant A/V/THOMAS which are bothersome to him. Pt states that he is "Messed in the head." He has poor insight and is unable to recall short term memory AEB not remembering why he stopped taking medications on 07/15, and why he left the [facility] without returning on the . Pt. also reports S/I with a plan to cut himself. Assessment What has happened this shift: Pt. laying in bed at the beginning of the shift, this procedure writer introduced self and attempted to establish rapport. When questioned in regard to how he is feeling, pt. stated, "I'm not doing good, I'm tripping out." Pt. presents as anxious and internally preoccupied, however reports that previously administered PRN Ativan and Zyprexa did help him. He voices contentment with awaiting next PRN dose of Ativan. Pt. later attends snack and sits up in the Group Room watching TV and interacting minimally with others before returning to bed. 1:1 completed at bedside, pt's affect is constricted, and he appears somewhat guarded and fatigued. Pt endorses command A/THOMAS however has trouble describing what they say, states, "They tell me to do this, and then that." Also V/THOMAS of, "Buildings and stuff." When questioned by this procedure writer regarding S/I, pt. reports a plan to cut his wrists with a spinner box. He requests PRN Ativan at , administered with effectiveness and will continue to monitor. S/I, H/I: S/I with a plan to cut his wrists with a razor blade A/VH: Command A/THOMAS, and V/THOMAS of "Buildings and stuff." Sleep: Pt. appears to be resting comfortably ADL's: Pt. requires direction and prompting Group attendance: Pt. attends snack Were meds taken: Yes Any med S/E: None Mental Status Exam Appearance: Slightly disheveled, appropriately dressed Eye contact: Fair Behavior: Cooperative, anxious, guarded, and fatigued Speech: Soft, mumbled, and responds only to questions Mood: Anxious and pleasant Affect: Constricted Thought process: Tangental with thought blocking Thought Content: A/V/THOMAS and possible paranoid delusions Cognition: A&O X3 (not to time) Insight: Poor Judgment: Poor Interventions PRN's used: Ativan Therapeutic interventions: Introduced self and established rapport, ensured contract for safety, provided clear and simple instructions, reoriented to reality, monitored behaviors and need for intervention, minimized environmental stimulation, and maintained Q 15 min safety checks. Restraints/seclusion/emergency medication: N/A Justification of Continued Inpatient Treatment: Pt. requires interruption of current crisis, medication adjustments, and a safe and supportive environment.
[2019-07-20 07:14] VITALS: BP 95/50
[2019-07-20 07:54] LABS: CHOLESTEROL 129 MG/DL (0-200); HDL CHOLESTEROL 32 MG/DL (35-60); LDL CHOLESTEROL 82 MG/DL (50-100); TRIGLYCERIDES 109 MG/DL (20-135)
[2019-07-20] MEDS: nicotine 21mg patch - 24 hr TD SCH (08:10)
--- NOTE | 2019-07-20 12:35 | NUR ---
SS note, informed consent: During AM psychosocial assessment, Ct received and indicated agreement/understanding of informed consent information from Grace Carlos LCSW.
--- NOTE | 2019-07-20 15:32 | NUR ---
SS met w/pt today and utilized CBT & AK strategies to engage pt in completing his bio-psychosocial assessment. SS provided Informed Consent (confidentiality, limits of confidentiality, tarasoff, 5150 & reporting obligations). Pt acknowledged understanding of the informed consent information. Pt was lethargic, lying in bed eyes closed but answering questions and participating in the assessment. There were many pauses from pt, but when prompted pt able to resume the interview. Pt signed TP & GAVINO. Shirin Carlos LCSW Addendum: 07/20/19 at 1542 by Shirin BEAN Amended: Links added.
--- NOTE | 2019-07-20 15:44 | NUR ---
Nursing Progress Note Legal hold: 5150 Client on involuntary status for GD Report received from nurse, LUIS FERNANDO Guerrero with use of SBAR Why are they here: 5150 written by [facility] for GD. Pt was found to be responding to internal stimuli and unable to formulate a safe plan for food, fpc and clothing. Pt states that he is "Messed in the head." Pt has poor insight and is unable to recall short term memory AEB not remembering why he stopped taking medications on 07/15 and why he left the [facility] without returning on the . Pt is found talking to pictures in the hallways and contorting his body in a bizarre fashion. Zyprexa Zydis and Ativan PRN were administered. Assessment What has happened this shift: At breakfast time pt states he is not feeling well and wants to sleep so he slept through breakfast. Although cooperative with AM assessment responses were brief. He later was up for snack and lunch both times returning straight back to bed. S/I, H/I: Denies A/VH: Unable to assess Sleep: Slept most of the shift ADL's: independent Group attendance: No Were meds taken: yes Any med S/E: none noted or reported Mental Status Exam Appearance: hospital gown from admit Eye contact: poor Behavior: slept all shift Speech: normal rate and rhythm Mood: cooperative Affect: slept unsure Thought process: he just wants to sleep Thought Content: "tired" Cognition: WNL's Insight: fair Judgment: poor Interventions: PRN's used: N/A Therapeutic interventions:Prompts and encouragement for meals and groups; therapeutic communication; medication administration/monitoring/education; q 15 sin safety checks. Restraints/seclusion/emergency medication: N/A Justification: Pt admitted for GD unable to formulate a plan for food, clothing and fpc after not taking his medications as prescribed after discharge. He is in need of medication stabilization and housing.
[2019-07-20 17:30] LABS: CLARITY,URINE CLEAR (Clear); COLOR,URINE YELLOW (Yellow); GLUCOSE, URINE NEGATIVE (Neg); KETONES,URINE NEGATIVE (Neg); LEUKOCYTE ESTERASE ,URINE NEGATIVE (Neg); NITRITES, URINE NEGATIVE (Neg); OCCULT BLOOD,URINE NEGATIVE (Neg); PH,URINE 6.5 (4.8-8.0); PROTEIN,URINE NEGATIVE (Neg)
[2019-07-20 17:33] LABS: UA COLLECTION TYPE CLN CATCH MIDSTREAM
[2019-07-20 20:00] VITALS: BP 113/72
--- NOTE | 2019-07-20 21:00 | NUR ---
Nursing Note: Pt. reported prior removal of Nicotine Patch.
[2019-07-20] MEDS: clozapine 100mg tablet PO SCH (21:06)
[2019-07-20] MEDS: clozapine 25mg tablet PO SCH (21:07)
--- NOTE | 2019-07-21 02:48 | NUR ---
Nursing Progress Note: Legal hold: 5150 Client on involuntary status for GD Report received from nurse with use of SBAR: LUIS FERNANDO Martinez Why are they here: Pt presents to the ER with psychosis and is a poor historian. He reports constant A/V/THOMAS which are bothersome to him. Pt states that he is "Messed in the head." He has poor insight and is unable to recall short term memory AEB not remembering why he stopped taking medications on 07/15, and why he left the [facility] without returning on the . Pt. also reports S/I with a plan to cut himself. Assessment What has happened this shift: Pt. up walking in the hallway and interacting appropriately with another male patient on the unit at the beginning of the shift, and throughout the shift. He attends HS snack and is observed by this television script writer to be laughing and joking with his new friend in the Group Room. 1:1 completed, and when questioned by this television script writer regarding any ongoing H/A, pt. inappropriately laughed and stated, "I don't know, do I?" However, he later admits that he has not experienced any A/V/THMOAS this shift, he states, " They are better, I just hear the fan running right now." He continues to endorse S/I, with a plan to cut his wrists with a dry box operator. Pt. then repots fatigue and requests to go to sleep, will continue to monitor. S/I, H/I: S/I with a plan to cut his wrists with a razor blade A/VH: Denies this shift, however appears internally preoccupied at times Sleep: Pt. reports fatigue and retreats to bed following HS snack ADL's: Pt. requires direction and prompting Group attendance: Pt. attends HS snack Were meds taken: Yes Any med S/E: None Mental Status Exam Appearance: Slightly disheveled, appropriately dressed Eye contact: Poor/Fair Behavior: Cooperative, guarded, and fatigued Speech: Soft, mumbled, and responds only to questions Mood: Confused/pleasant Affect: Constricted Thought process: Tangental with thought blocking Thought Content: A/V/THOMAS and possible paranoid delusions Cognition: A&O X3 (not to time) Insight: Poor Judgment: Poor Interventions PRN's used: None Therapeutic interventions: Ensured contract for safety, provided clear and simple instructions, reoriented to reality, monitored behaviors and need for intervention, minimized environmental stimulation, and maintained Q 15 min safety checks. Restraints/seclusion/emergency medication: N/A Justification of Continued Inpatient Treatment: Pt. requires interruption of current crisis, medication adjustments, and a safe and supportive environment.
[2019-07-21 07:29] VITALS: BP 102/59
[2019-07-21] MEDS: sertraline 50mg tablet PO SCH (07:37)
[2019-07-21] MEDS: nicotine 21mg patch - 24 hr TD SCH (08:00)
--- NOTE | 2019-07-21 14:51 | NUR ---
Spoke to Gina [facility], regarding a LPS referral. She reported she will send creative writer the referral form. MATTHIEU Strange
--- NOTE | 2019-07-21 15:36 | NUR ---
Nursing Progress Note: [facility] Legal hold: 5150 Client on involuntary status for GD Report received from nurse with use of SBAR: LUIS FERNANDO Sweet Why are they here: Pt presents to the ER with psychosis and is a poor historian. He reports constant A/V/THOMAS which are bothersome to him. Pt states that he is "Messed in the head." He has poor insight and is unable to recall short term memory AEB not remembering why he stopped taking medications on 07/15, and why he left the [facility] without returning on the . Pt. also reports S/I with a plan to cut himself. Assessment What has happened this shift: Patient awake and ambulating in jama at change of shift. Cooperative with 1:1 assessment. Rates depression as a 10/10, and anxiety the same though no outward signs of either. He smiles and interacts with staff and others in an upbeat manner. Denies SI at this time. States the AH are more like whispers which he is unable to identify any specific words. Spent most of day in room sleeping, does admit he isnt getting enough food to eat. Double meal tray requested from dietary. When talking about how he came to be on [facility] unit, patient describes he went outside of the [facility], and they wouldnt let him back in. Was off his medications because of this and the voices were really loud S/I, H/I: Denies A/VH: States they are very quiet Sleep: 7.25 ADL's: Requires encouragement, independent Group attendance: Yes Were meds taken: Yes Any med S/E: None Mental Status Exam Appearance: Slightly disheveled, appropriately dressed Eye contact: good Behavior: Cooperative Speech: Soft, normal rate and rythym Mood: calm Affect: Constricted or blunted Thought process: Circumstantiality Thought Content: Delusions, I lived with witches and demons Cognition: A&O X3 (not to time) Insight: Poor Judgment: Poor Interventions PRN's used: None Therapeutic interventions: Ensured contract for safety, provided clear and simple instructions, reoriented to reality, monitored behaviors and need for intervention, minimized environmental stimulation, and maintained Q 15 min safety checks. Restraints/seclusion/emergency medication: N/A Justification of Continued Inpatient Treatment: Pt. requires interruption of current crisis, medication adjustments, and a safe and supportive environment.
[2019-07-21 20:01] VITALS: BP 131/70
[2019-07-21] MEDS: clozapine 25mg tablet PO SCH (20:42)
[2019-07-21] MEDS: clozapine 100mg tablet PO SCH (20:46)
--- NOTE | 2019-07-22 00:52 | NUR ---
Nursing Progress Note: Legal hold: 5150 Exp 07/22 @ 1410 Client on involuntary status for GD Report received from nurse with use of SBAR: LUIS FERNANDO Martinez Why are they here: Pt presents to the ER with psychosis and is a poor historian. He reports constant A/V/THOMAS which are bothersome to him. Pt states that he is "Messed in the head." He has poor insight and is unable to recall short term memory AEB not remembering why he stopped taking medications on 07/15, and why he left the [facility] without returning on the . Pt. also reports S/I with a plan to cut himself. Assessment What has happened this shift: Pt is observed sitting in group room interacting appropriately with other patients at shift change. This underwriter later introduces self and establishes rapport. Pt is later seen waking the hallway smiling and talking to self. 1:1 completed at bedside and at this time pt reports he is AH and the voices are of his family, but does not share what they are saying. Pt endorses SI with a plan to cut his wrists (pt makes a cutting gesture with his fingers). Pt agrees to contract for safety this shift. Pt denies feeling depressed, pt's affect is bright, but guarded. Assessed pt's left foot and toe, blister on toe has popped, suggested to pt to leave KEERTHI, so his sock doesn't rub it raw. Pt also has a small abrasion on left ankle below ankle monitor, will need to monitor. Will endorse to day shift to continue to monitor for worsening symptoms. Pt was medication compliant and retired to bed shortly after HS snack. Pt chose to keep his Nicotine patch on - pt was educated on possible SE of this. S/I, H/I: S/I with a plan to cut his wrists A/VH: +AH - "I am hearing my family's voices" Sleep: See Sleep Assessment Report ADL's: Pt. requires direction and prompting Group attendance: wagon drill operator, no group Were meds taken: Medication compliant Any med S/E: None reported or observed Mental Status Exam Appearance: Slightly disheveled, appropriately dressed Eye contact: Good Behavior: Cooperative, guarded Speech: Clear, normal rate and rhythm Mood: Pleasant, guarded Affect: Constricted Thought process: Thought blocking Thought Content: Cognition: A&O X3 (not to time) Insight: Poor Judgment: Poor Interventions PRN's used: None Therapeutic interventions: Ensured contract for safety, provided clear and simple instructions, reoriented to reality, monitored behaviors and need for intervention, minimized environmental stimulation, and maintained Q 15 min safety checks. Restraints/seclusion/emergency medication: N/A Justification of Continued Inpatient Treatment: Pt. requires interruption of current crisis, medication adjustments, and a safe and supportive environment.
[2019-07-22 07:49] VITALS: BP 116/69
[2019-07-22] MEDS: sertraline 50mg tablet PO SCH (07:51)
[2019-07-22] MEDS: nicotine 21mg patch - 24 hr TD SCH (07:52)
--- NOTE | 2019-07-22 15:12 | NUR ---
Nursing Progress Note: Zachariah Fajardo Legal hold: 5150 Exp 07/22 @ 1410 Client on involuntary status for GD Report received from nurse with use of SBAR: Avril Mueller RN Why are they here: Pt presents to the ER with psychosis and is a poor historian. He reports constant A/V/THOMAS which are bothersome to him. Pt states that he is "Messed in the head." He has poor insight and is unable to recall short term memory AEB not remembering why he stopped taking medications on 07/15, and why he left the [facility] without returning on the . Pt. also reports S/I with a plan to cut himself. Assessment What has happened this shift: Assumed care of this client at 0600 hours. Client was in bed to begin the shift. Client was amicable with assessment and medications. When questioned, client stated, " I am suicidal". Client was able to verbally contract for safe unit behaviors and will alert staff if he is unable to control impulses to cause self harm. Patient attended morning group and then went back to his bed to rest. Client presented for noon meal and consumed lunch without issues and returned to his room to rest. Client remains in his bed, resting with eyes closed (1510 hours). S/I, H/I: S/I with a plan to cut his wrists A/VH: +AH - "I am hearing my family's voices" Sleep: See Sleep Assessment Report ADL's: Pt. requires direction and prompting Group attendance: yes Were meds taken: Medication compliant Any med S/E: None reported or observed Mental Status Exam Appearance: Slightly disheveled, appropriately dressed Eye contact: Good Behavior: Cooperative, guarded Speech: Clear, normal rate and rhythm Mood: Pleasant, guarded Affect: Constricted Thought process: Thought blocking Thought Content: Cognition: A&O X3 (not to time) Insight: Poor Judgment: Poor Interventions PRN's used: None Therapeutic interventions: Ensured contract for safety, provided clear and simple instructions, reoriented to reality, monitored behaviors and need for intervention, minimized environmental stimulation, and maintained Q 15 min safety checks. Restraints/seclusion/emergency medication: N/A Justification of Continued Inpatient Treatment: Pt. requires interruption of current crisis, medication adjustments, and a safe and supportive environment.
[2019-07-22] MEDS: LORazepam 1 MG tablet PO PRN (15:45)
[2019-07-22 19:00] VITALS: BP 136/78
[2019-07-22] MEDS: clozapine 25mg tablet PO SCH (20:57)
[2019-07-22] MEDS: clozapine 100mg tablet PO SCH (20:58)
--- NOTE | 2019-07-22 23:32 | NUR ---
Nursing Progress Note: Legal hold: 5250 Exp 08/05 @ 1410 Client on involuntary status for GD Report received from nurse with use of SBAR: LUIS FERNANDO Martinez Why are they here: Pt presents to the ER with psychosis and is a poor historian. He reports constant A/V/THOMAS which are bothersome to him. Pt states that he is "Messed in the head." He has poor insight and is unable to recall short term memory AEB not remembering why he stopped taking medications on 07/15, and why he left the [facility] without returning on the . Pt. also reports S/I with a plan to cut himself. Assessment What has happened this shift: Pt was seen in the hallway by his room at shift change. When asked how he is doing pt states "It is a dark wall, I miss my mom." Pt's mom is as per pt. Pt states "I am not suicidal at this moment," but if he was he tends to cut his wrists. Pt again contracts for safety while on the unit and will notify staff for any reason he is unable to stay safe. Pt has a flat affect, but has some brightening. Pt is cooperative with 1:1 and medication administration. Pt appears disheveled and this commercial insurance underwriter suggests a shower and clean scrubs, pt is agreeable. Pt watches T.V while he charges ankle bracelet then retires to bed. S/I, H/I: Reports "no", but if he was would cut his wrists. A/VH: +AH, but quiet Sleep: See Sleep Assessment Report ADL's: Pt. requires direction and prompting. Pt showered this shift. 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, no group Were meds taken: Medication compliant Any med S/E: None reported or observed Mental Status Exam Appearance: Slightly disheveled, appropriately dressed Eye contact: Good Behavior: Cooperative, guarded Speech: Clear, normal rate and rhythm Mood: Depressed, guarded, cooperative Affect: Constricted Thought process: Circumstantial Thought Content: Cognition: A&O X3 (not to time) Insight: Poor Judgment: Poor Interventions PRN's used: None Therapeutic interventions: Ensured contract for safety, provided clear and simple instructions, reoriented to reality, monitored behaviors and need for intervention, minimized environmental stimulation, and maintained Q 15 min safety checks. Restraints/seclusion/emergency medication: N/A Justification of Continued Inpatient Treatment: Pt. requires interruption of current crisis, medication adjustments, and a safe and supportive environment. Addendum: 07/23/19 at 0224 by Catalina Ruvalcaba RN Nicotine patch was removed and disposed of in appropriate receptacle.
[2019-07-23] MEDS: sertraline 50mg tablet PO SCH (07:43)
[2019-07-23] MEDS: nicotine 21mg patch - 24 hr TD SCH (07:43)
[2019-07-23 08:38] VITALS: BP 116/64
--- NOTE | 2019-07-23 08:45 | NUR ---
Initial: Pt admit w/ depression/SI currently PO 75-100% avg regular diet meeting needs. LBM 07/20 formed w/ no GI symptoms noted per EMR. No nutrition concerns at this time. Will continue to monitor. Rec: 1. continue regular diet 2. routine bowel care 3. wt per rx Addendum: 07/23/19 at [address] Amended: Links added.
[2019-07-23 09:28] LABS: BASOPHILS # (AUTO) 0.1 X10'3 (0-0.2); BASOPHILS % (AUTO) 0.9 % (0-1); EOSINOPHILS # (AUTO) 0.2 X10'3 (0-0.9); EOSINOPHILS % (AUTO) 3.2 % (0-6); HEMATOCRIT 43.8 % (42.0-52.0); HEMOGLOBIN 14.7 g/dl (14.0-17.9); LYMPHOCYTES # (AUTO) 1.8 X10'3 (1.1-4.8); LYMPHOCYTES % (AUTO) 29.9 % (21-51); MEAN CORPUSCULAR HEMOGLOBIN 29.9 PG (27.0-31.0); MEAN CORPUSCULAR HGB CONC 33.5 g/dL (33.0-36.5); MEAN CORPUSCULAR VOLUME 89.2 FL (78-98); MEAN PLATELET VOLUME 7.9 FL (7.4-10.4); MONOCYTES # (AUTO) 0.4 X10'3 (0-0.9); MONOCYTES % (AUTO) 6.1 % (2-12); NEUTROPHILS # (AUTO) 3.6 X10'3 (1.8-7.7); NEUTROPHILS % (AUTO) 59.9 % (42-75); PLATELET COUNT 254 X10'3 (140-440); RED BLOOD COUNT 4.91 X10'6 (4.70-6.10); RED CELL DISTRIBUTION WIDTH 13.3 % (11.5-14.5); WHITE BLOOD COUNT 5.9 X10'3 (4.5-11.0)
--- NOTE | 2019-07-23 16:57 | NUR ---
Nursing Progress Note: Scotty Legal hold: 5250 Exp 08/05 @ 1410 Client on involuntary status for GD Report received from nurse with use of SBAR: Avril Mueller RN Why are they here: Pt presents to the ER with psychosis and is a poor historian. He reports constant A/V/THOMAS which are bothersome to him. Pt states that he is "Messed in the head." He has poor insight and is unable to recall short term memory AEB not remembering why he stopped taking medications on 07/15, and why he left the [facility] without returning on the . Pt. also reports S/I with a plan to cut himself. Assessment What has happened this shift: Client has been visible on the unit all shift. He has been compliant with all aspects of care and denies thoughts of harm to self. He is social and appropriate with both staff and peers. No behavioral issues this shift. Attended group activities today and required no PRN medications. S/I, H/I: Reports "no", but if he was would cut his wrists. A/VH: +AH, denies Sleep: 6 hours last shift ADL's: Pt. requires direction and prompting. Pt showered this shift. Group attendance: yes Were meds taken: Medication compliant Any med S/E: None reported or observed Mental Status Exam Appearance: Slightly disheveled, appropriately dressed Eye contact: Good Behavior: Cooperative, guarded Speech: Clear, normal rate and rhythm Mood: Depressed, guarded, cooperative Affect: Constricted Thought process: Circumstantial Thought Content: Cognition: A&O X3 (not to time) Insight: Poor Judgment: Poor Interventions PRN's used: None Therapeutic interventions: Ensured contract for safety, provided clear and simple instructions, reoriented to reality, monitored behaviors and need for intervention, minimized environmental stimulation, and maintained Q 15 min safety checks. Restraints/seclusion/emergency medication: N/A Justification of Continued Inpatient Treatment: Pt. requires interruption of current crisis, medication adjustments, and a safe and supportive environment. Addendum: 07/23/19 at 1759 by Baldev Franklin RN Please note Clozaril increase effective 23 July.
[2019-07-23] MEDS: LORazepam 1 MG tablet PO PRN (17:35)
[2019-07-23 19:41] VITALS: BP 125/83
[2019-07-23 19:57] VITALS: BP 125/83
[2019-07-23] MEDS: clozapine 100mg tablet PO SCH (20:14)
[2019-07-23] MEDS ORDERED: clozapine 25mg tablet PO SCH (21:00)
--- NOTE | 2019-07-23 23:44 | NUR ---
Nursing Progress Note: Legal hold: 5250 Exp 08/05 @ 1410 Client on involuntary status for GD Report received from nurse with use of SBAR: LUIS FERNANDO Martinez Why are they here: Pt presents to the ER with psychosis and is a poor historian. He reports constant A/V/THOMAS which are bothersome to him. Pt states that he is "Messed in the head." He has poor insight and is unable to recall short term memory AEB not remembering why he stopped taking medications on 07/15, and why he left the [facility] without returning on the . Pt. also reports S/I with a plan to cut himself. Assessment What has happened this shift: Pt was watching tv in rec room at change of shift. During 1:1 pt was cooperative and friendly. pt denied si/hi but endorsed ah, stating, "if I don't listen to them they get louder." pt took shower and reported feeling better afterwards. S/I, H/I: denies A/VH: +AH, but quiet Sleep: See Sleep Assessment Report ADL's: Pt showered this shift. 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 Were meds taken: Medication compliant Any med S/E: None reported or observed Mental Status Exam Appearance: Slightly disheveled, appropriately dressed Eye contact: Good Behavior: Cooperative, guarded Speech: Clear, normal rate and rhythm Mood: Depressed, guarded, cooperative Affect: Constricted Thought process: Circumstantial Thought Content: Cognition: A&O X3 (not to time) Insight: Poor Judgment: Poor Interventions PRN's used: None Therapeutic interventions: Ensured contract for safety, provided clear and simple instructions, reoriented to reality, monitored behaviors and need for intervention, minimized environmental stimulation, and maintained Q 15 min safety checks. Restraints/seclusion/emergency medication: N/A Justification of Continued Inpatient Treatment: Pt. requires interruption of current crisis, medication adjustments, and a safe and supportive environment.
[2019-07-24] MEDS: nicotine 21mg patch - 24 hr TD SCH (07:29)
[2019-07-24] MEDS: sertraline 50mg tablet PO SCH (07:30)
[2019-07-24 07:37] VITALS: BP 119/69
--- NOTE | 2019-07-24 08:54 | NUR ---
Late Note for t/c occurring on 07/21/19 PM. On 07/21/19 PM, SS had t/c w/Yuli @ [facility] re pt's needing LPS referral. Per t/c SS will complete LPS referral and fax to [facility]. Plan: SS to complete LPS referral & coordinate [facility] tobin/. Shirin Carlos POULTRY SCIENTIST Addendum: 07/24/19 at 0857 by Shirin Carlos SS Amended: Links added.
--- NOTE | 2019-07-24 15:40 | NUR ---
Nursing Progress Note: Scotty Legal hold: 5250 Exp 08/05 @ 1410 Client on involuntary status for GD Report received from nurse with use of SBAR: Avril Mueller RN Why are they here: Pt presents to the ER with psychosis and is a poor historian. He reports constant A/V/THOMAS which are bothersome to him. Pt states that he is "Messed in the head." He has poor insight and is unable to recall short term memory AEB not remembering why he stopped taking medications on 07/15, and why he left the [facility] without returning on the . Pt. also reports S/I with a plan to cut himself. Assessment Patient was asleep at change of shift and up before breakfast. Patient is pleasant and answers questions appropriately. Patient takes his medication without incident. Patient denies SI and states he is hearing voices telling him what to do. Patient states he always hears voices. Patient is social and goes to group. Patient states he has no family and has lived in [place] for a long time. Patient needs prompting for ADLs. S/I, H/I: Denies A/VH: +AH, States he has command hallucinations Sleep: 6 hours last shift ADL's: Pt. requires direction and prompting. Group attendance: yes Were meds taken: Medication compliant Any med S/E: None reported or observed Mental Status Exam Appearance: Slightly disheveled, appropriately dressed Eye contact: Good Behavior: Cooperative, guarded Speech: Clear, normal rate and rhythm Mood: Content Affect: Constricted Thought process: Circumstantial Thought Content: Cognition: A&O X3 (not to time) Insight: Poor Judgment: Poor Interventions PRN's used: None Therapeutic interventions: Ensured contract for safety, provided clear and simple instructions, reoriented to reality, monitored behaviors and need for intervention, minimized environmental stimulation, and maintained Q 15 min safety checks. Restraints/seclusion/emergency medication: N/A Justification of Continued Inpatient Treatment: Pt. requires interruption of current crisis, medication adjustments, and a safe and supportive environment. Addendum: 07/23/19 at 1759 by Baldev Franklin RN Please note Clozaril increase effective 23 July.
--- NOTE | 2019-07-24 16:20 | NUR ---
Probable Cause Hearing-5250 upheld the 5250. Shirin Carlos, GRAIN BLENDER Addendum: 07/24/19 at 1621 by Shirin Carlos SS Amended: Links added.
[2019-07-24] MEDS: LORazepam 1 MG tablet PO PRN (20:15)
[2019-07-24] MEDS: clozapine 100mg tablet PO SCH (20:15)
[2019-07-24 20:39] VITALS: BP 136/84
--- NOTE | 2019-07-24 21:18 | NUR ---
Nursing Progress Note: Legal hold: 5250 Exp 08/05 @ 1410 Client on involuntary status for GD Report received from nurse with use of SBAR: LUIS FERNANDO Martinez Why are they here: Pt presents to the ER with psychosis and is a poor historian. He reports constant A/V/THOMAS which are bothersome to him. Pt states that he is "Messed in the head." He has poor insight and is unable to recall short term memory AEB not remembering why he stopped taking medications on 07/15, and why he left the [facility] without returning on the . Pt. also reports S/I with a plan to cut himself. Assessment What has happened this shift: The patient was watching tv in the rec room at shift change. 1:1 completed at bedside. He is in constant motion and unable to stop. The patient reports that he'd like to join the armed services, but he can't due to his prior cutting scars on his arms. He appears happy, but endorses AH, "they don't leave me alone." The patient states that his medicine is working. "When I'm not here, I have trouble remembering to take them." he spent the evening watching tv and moving about the unit. S/I, H/I: Denies A/VH: +AH. Sleep: See Sleep Assessment Report ADL's: independent. Group attendance: night shift, no group Were meds taken: Yes Any med S/E: None reported or observed Mental Status Exam Appearance: Slightly disheveled, appropriately dressed in street clothes. Eye contact: Good Behavior: Cooperative, guarded Speech: Clear, normal rate and rhythm Mood: Good, guarded, cooperative Affect: Congruent to mood. Thought process: Circumstantial Thought Content: Delusional Cognition: A&O X3 (not to time) Insight: Poor Judgment: Poor Interventions PRN's used: None Therapeutic interventions: Ensured contract for safety, provided clear and simple instructions, reoriented to reality, monitored behaviors and need for intervention, minimized environmental stimulation, and maintained Q 15 min safety checks. Restraints/seclusion/emergency medication: N/A Justification of Continued Inpatient Treatment: Pt. requires interruption of current crisis, medication adjustments, and a safe and supportive environment.
[2019-07-25] MEDS: sertraline 50mg tablet PO SCH (07:51)
[2019-07-25] MEDS: clozapine 25mg tablet PO SCH ×2 (07:52→12:54)
[2019-07-25] MEDS: nicotine 21mg patch - 24 hr TD SCH (07:53)
[2019-07-25 08:13] VITALS: BP 108/59
--- NOTE | 2019-07-25 08:37 | NUR ---
SS completed & faxed Request to Establish LPS Conservatorship of pt to [facility] office to facilitate [facility] evaluation for LPS Conservatorship on pt's behalf. Shirin Carlos LCSW Addendum: 07/25/19 at 0838 by Shirin BEAN Amended: Links added.
--- NOTE | 2019-07-25 17:31 | NUR ---
Nursing Progress Note: Scotty Legal hold: 5250 Exp 08/05 @ 1410 Client on involuntary status for GD Report received from nurse with use of SBAR: KERMIT Guerrero Why are they here: Pt presents to the ER with psychosis and is a poor historian. He reports constant A/V/THOMAS which are bothersome to him. Pt states that he is "Messed in the head." He has poor insight and is unable to recall short term memory AEB not remembering why he stopped taking medications on 07/15, and why he left the [facility] without returning on the . Pt. also reports S/I with a plan to cut himself. Assessment: Patient was asleep at change of shift and up before breakfast. Patient is smiling and social. Patient is hypomanic. Patient states he is hearing command hallucinations but does not tell him to hurt himself. Patient having some delusional thinking. Patient went to both groups today and went to the patio for outdoor time. Patient appeared to have a good day. S/I, H/I: Denies A/VH: +AH, States he has command hallucinations Sleep: No naps during the day. ADL's: Pt. requires direction and prompting. Group attendance: yes Were meds taken: Medication compliant Any med S/E: None reported or observed Mental Status Exam Appearance: Slightly disheveled, appropriately dressed Eye contact: Good Behavior: Cooperative, Hypomanic Speech: Clear, normal rate and rhythm Mood: pleasant Affect: smiling Thought process: Circumstantial Thought Content: Some Delusional thinking Cognition: A&O X3 (not to time) Insight: Poor Judgment: Poor Interventions PRN's used: None Therapeutic interventions: Ensured contract for safety, provided clear and simple instructions, reoriented to reality, monitored behaviors and need for intervention, minimized environmental stimulation, and maintained Q 15 min safety checks. Restraints/seclusion/emergency medication: N/A Justification of Continued Inpatient Treatment: Pt. requires interruption of current crisis, medication adjustments, and a safe and supportive environment.
[2019-07-25 20:20] VITALS: BP 132/81
[2019-07-25] MEDS: clozapine 100mg tablet PO SCH (20:39)
[2019-07-25] MEDS: LORazepam 1 MG tablet PO PRN (20:39)
--- NOTE | 2019-07-25 22:44 | NUR ---
Nursing Progress Note: Legal hold: 5250 Exp 08/05 @ 1410 Client on involuntary status for GD Report received from nurse with use of SBAR: LUIS FERNANDO Martinez Why are they here: Pt presents to the ER with psychosis and is a poor historian. He reports constant A/V/THOMAS which are bothersome to him. Pt states that he is "Messed in the head." He has poor insight and is unable to recall short term memory AEB not remembering why he stopped taking medications on 07/15, and why he left the [facility] without returning on the . Pt. also reports S/I with a plan to cut himself. Assessment What has happened this shift: The patient was found in the group room. He wears the same clothes as yesterday and declines an offer of a shower. He is still smiling, happy, and hypomanic as he moves about the unit. The patient reports progress with his medication and has no complaints. He continues to endorse command hallucinations, but says he can resist. The patient is compliant with medications and going to groups. awaiting possible LPS conservation. S/I, H/I: Denies A/VH: +AH. Sleep: See Sleep Assessment Report ADL's: independent. 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 Eye contact: Good Behavior: Cooperative, guarded Speech: Clear, hyperverbal Mood: Good, guarded, cooperative Affect: Congruent to mood. Thought process: Circumstantial Thought Content: Delusional Cognition: A&O X3 (not to time) Insight: Poor Judgment: Poor Interventions PRN's used: Ativan Therapeutic interventions: Ensured contract for safety, provided clear and simple instructions, reoriented to reality, monitored behaviors and need for intervention, minimized environmental stimulation, and maintained Q 15 min safety checks. Restraints/seclusion/emergency medication: N/A Justification of Continued Inpatient Treatment: Pt. requires interruption of current crisis, medication adjustments, and a safe and supportive environment.
[2019-07-26] MEDS ORDERED: clozapine 25mg tablet PO SCH (07:30)
[2019-07-26] MEDS: nicotine 21mg patch - 24 hr TD SCH (07:32)
[2019-07-26] MEDS: sertraline 50mg tablet PO SCH (07:32)
[2019-07-26 08:00] VITALS: BP 106/60
[2019-07-26] MEDS: clozapine 100mg tablet PO SCH ×2 (12:08→20:07)
--- NOTE | 2019-07-26 12:33 | NUR ---
DISCHARGE PLANNING Spoke to Gina [facility], to inquire if a clinician could do a Comp Assessment and Tx plan with Ct while he is on the unit so he can be open to [facility] services. She reported she will ask and keep process description writer apprised. MATTHIEU Strange
--- NOTE | 2019-07-26 14:31 | NUR ---
Nursing Progress Note: Scotty Legal hold: 5250 Exp 08/05 @ 1410 Client on involuntary status for GD Report received from nurse with use of SBAR: Yolanda RN Why are they here: Pt presents to the ER with psychosis and is a poor historian. He reports constant A/V/THOMAS which are bothersome to him. Pt states that he is "Messed in the head." He has poor insight and is unable to recall short term memory AEB not remembering why he stopped taking medications on 07/15, and why he left the [facility] without returning on the . Pt. also reports S/I with a plan to cut himself. Assessment What has happened this shift: Client in bed to begin this shift. No somatic complaints upon assessment. Client took medications and was compliant with the assessment proccess. Client denies current SI and is amicable to his care. Client had a visit from his Mining Plant Operator today at 1005 hours. Client is visible and social on unit and has had no behavioral issues as of this writing (1018 hours). Client has been resting in his bed since visit from PO. Client came to Group room for lunch and consumed 100 percent of meal and a burrito. Client has been compliant with all aspects of his care today. Currently (1440 hours) client is resting in bed with eyes closed. Respirations are even and unlabored. S/I, H/I: Denies A/VH: +AH. Sleep: 7.75 ADL's: independent. Group attendance: not today Were meds taken: Yes Any med S/E: None reported or observed Mental Status Exam Appearance: ADLS were conducted today. Eye contact: Good Behavior: Cooperative, guarded Speech: Clear, hyperverbal Mood: Good, guarded, cooperative Affect: Congruent to mood. Thought process: Circumstantial Thought Content: Delusional Cognition: A&O X3 (not to time) Insight: Poor Judgment: Poor Interventions PRN's used: Therapeutic interventions: Ensured contract for safety, provided clear and simple instructions, reoriented to reality, monitored behaviors and need for intervention, minimized environmental stimulation, and maintained Q 15 min safety checks. Restraints/seclusion/emergency medication: N/A Justification of Continued Inpatient Treatment: Pt. requires interruption of current crisis, medication adjustments, and a safe and supportive environment. Addendum: 07/26/19 at 1714 by Baldev Franklin RN JAMEE order of Zydis 5mg po given to client for agitation about 1710 hours.
[2019-07-26] MEDS: OLANZapine 5mg rapidly disint. tablet PO PRN (17:11)
[2019-07-26 19:44] VITALS: BP 122/78
--- NOTE | 2019-07-26 22:00 | NUR ---
Nursing Progress Note: Legal hold: 5250 Exp 08/05 Client on involuntary status for GD Report received from nurse with use of SBAR: LUIS FERNANDO Fox Why are they here: Pt presents to the ER with psychosis and is a poor historian. He reports constant A/V/THOMAS which are bothersome to him. Pt states that he is "Messed in the head." He has poor insight and is unable to recall short term memory AEB not remembering why he stopped taking medications on 07/15, and why he left the [facility] without returning on the . Pt. also reports S/I with a plan to cut himself. Assessment What has happened this shift: The patient was up on the unit this evening and friendly on approach. He was cooperative with the evening assessment. He stated that at night he has been sleeping "alright" He was asked about side effects to medications and he stated that he felt the medications were making him tired. When asked what his plan for discharge was he stated that he had no idea. He was able to state the month and year. He does appear to be low average intelligence. When asked why he was here he stated that he had been feeling depressed and having suicidal thoughts. He stated that he still feels depressed but he is not suicidal. He reports hearing voices that are negative and derogatory and calling him names and tell him how to live. He reported that he was having visual hallucinations of people but looked down and really appeared like he did not want to elaborate. He reports his concentration and focus are impaired. He denies racing thoughts. S/I, H/I: Denies A/VH: reports derogatory and negative voices and sees people who aren't there. Sleep: ADL's: independent. Group attendance: Were meds taken: Yes Any med S/E: reports fatigue Mental Status Exam Appearance: neat clean and dressed appropriately Eye contact: Good Behavior: Cooperative, guarded Speech: Clear, hyperverbal, spontaneous Mood: reports depressed but inproving Affect: Congruent to mood. Thought process: Circumstantial Thought Content: Delusional Cognition: A&O X3 (not to time) Insight: Poor Judgment: Poor Interventions PRN's used: Therapeutic interventions: Ensured contract for safety, provided clear and simple instructions, reoriented to reality, monitored behaviors and need for intervention, minimized environmental stimulation, and maintained Q 15 min safety checks. Restraints/seclusion/emergency medication: N/A Justification of Continued Inpatient Treatment: Pt. requires interruption of current crisis, medication adjustments, and a safe and supportive environment. -
[2019-07-27 07:28] VITALS: BP 98/57
[2019-07-27] MEDS: clozapine 100mg tablet PO SCH ×3 (08:25→20:42)
[2019-07-27] MEDS: sertraline 50mg tablet PO SCH (08:25)
[2019-07-27] MEDS: nicotine 21mg patch - 24 hr TD SCH (08:26)
--- NOTE | 2019-07-27 14:35 | NUR ---
Nursing Progress Note: Legal hold: 5250 Exp 08/05 Client on involuntary status for GD Report received from nurse with use of SBAR: LUIS FERNANDO Guerrero Why are they here: Pt presents to the ER with psychosis and is a poor historian. He reports constant A/V/THOMAS which are bothersome to him. Pt states that he is "Messed in the head." He has poor insight and is unable to recall short term memory AEB not remembering why he stopped taking medications on 07/15, and why he left the [facility] without returning on the . Pt. also reports S/I with a plan to cut himself. Assessment What has happened this shift: Pt rated his depression today at a 12/14, denied SI/HI/VH, denied AH today. States the last time he remembers hearing voices was yesterday morning they were negative in nature but did not command him to do anything. Pt charged his ankle bracelet this morning. Pt cooperative with unit procedures and medications. S/I, H/I: Pt denies A/VH: Pt denies VH, denies AH today. Sleep: Slept 7 hours per noc shift report ADL's: independent Group attendance: Yes Were meds taken: Yes Any med S/E: None noted or reported Mental Status Exam Appearance: Pt dressed in hospital scrubs, face somewhat moist/sweaty Eye contact: Good Behavior: Cooperative, constricted Speech: Clear, audible, minimal Mood: Depressed Affect: Flat, depressed, constricted Thought process: Linear Thought Content: Pt did not share his thoughts or feelings with staff today. Cognition: A/O X 4 Insight: Poor Judgment: Poor Interventions PRN's used: None Therapeutic interventions: 1:1 assessment, establishment of rapport, encouragement to express thoughts and feelings, monitored behaviors and need for intervention, minimized environmental stimulation, maintained Q 15 min safety checks. Restraints/seclusion/emergency medication: N/A Justification of Continued Inpatient Treatment: Pt requires interruption of current crisis, medication adjustment and management, and a safe and supportive environment. -
[2019-07-27 20:00] VITALS: BP 130/82
--- NOTE | 2019-07-27 23:23 | NUR ---
Nursing Progress Note: Legal hold: 5250 Exp 08/05 Client on involuntary status for GD Report received from nurse with use of SBAR: LUIS FERNANDO Fox Why are they here: Pt presents to the ER with psychosis and is a poor historian. He reports constant A/V/THOMAS which are bothersome to him. Pt states that he is "Messed in the head." He has poor insight and is unable to recall short term memory AEB not remembering why he stopped taking medications on 07/15, and why he left the [facility] without returning on the . Pt. also reports S/I with a plan to cut himself. Assessment What has happened this shift: Pt rated depression 8/10 this evening and was visibly anxious, pacing the halls and moving restlessly when sitting. Pt rated anxiety 5/10; Ativan given to good effect. Pt is minimal in responses and paces the halls most of the shift. He will occasionally engage with peers and is observed to be talking to himself as he walks the halls, but denies A/V H. Pt is polite, cooperative, and compliant with medication. S/I, H/I: Denies both A/VH: Denies both Sleep: See sleep assessment ADL's: Independent Group attendance: N/A Were meds taken: Yes Any med S/E: None noted nor reported Mental Status Exam Appearance: Dressed in personal clothing, nonskid socks, and tennis shoes wtihout laces; scruffy davis Eye contact: Intermittent Behavior: Cooperative, Pacing the halls, Engaging with peers, Laughing, Watching TV Speech: Clear Mood: "I'm okay" "I am sad (04/15)" Affect: Blunted with brightening Thought process: Linear Thought Content: Pt did not share his thoughts or feelings beyond assessment questions Cognition: A/Ox4 Insight: Poor Judgment: Poor Interventions PRN's used: Ativan Therapeutic interventions: 1:1 assessment, establishment of rapport, encouragement to express thoughts and feelings, monitored behaviors and need for intervention, minimized environmental stimulation, maintained Q 15 min safety checks. Restraints/seclusion/emergency medication: N/A Justification of Continued Inpatient Treatment: Pt requires interruption of current crisis, medication adjustment and management, and a safe and supportive environment. -
[2019-07-28 08:00] VITALS: BP 127/68
[2019-07-28] MEDS: clozapine 100mg tablet PO SCH ×5 (08:01→20:39)
[2019-07-28] MEDS: sertraline 50mg tablet PO SCH (08:01)
[2019-07-28] MEDS: nicotine 21mg patch - 24 hr TD SCH (08:03)
[2019-07-28] MEDS: buPROPion SR 150mg tablet PO SCH ×3 (13:08→15:35)
[2019-07-28] MEDS: clozapine 25mg tablet PO SCH ×3 (13:08→15:35)
--- NOTE | 2019-07-28 15:54 | NUR ---
Nursing Progress Note: Legal hold: 5250 Exp 08/05 Client on involuntary status for GD Report received from nurse with use of SBAR: LUIS FERNANDO Jorge Why are they here: Pt presents to the ER with psychosis and is a poor historian. He reports constant A/V/THOMAS which are bothersome to him. Pt states that he is "Messed in the head." He has poor insight and is unable to recall short term memory AEB not remembering why he stopped taking medications on 07/15, and why he left the [facility] without returning on the . Pt. also reports S/I with a plan to cut himself. Assessment What has happened this shift: Pt rated his depression today at an 04/15, when asked if he was having any thoughts of harming himself he replied, "not now." Asked if he had any thoughts recently, pt replied "no." When asked about voices, pt denied hearing them. Asked pt if he felt the medications were helping as he was no longer hearing voices. Pt stated that "I think they're waiting for me to get out so we can talk." Asked pt if this had happened before, pt replied, "yeah." Pt attended group and paced in the jama. Observed pt smiling and interacting with staff and select peers. MIRI Tucker increased pt's Clozaril from 100 mg to 125 mg BIDBL and added Wellbutrin 150 mg BIDBL. Pt declined the medication just after lunch as he stated that he felt "tired and sick." Pt stated that he thought it was from the Klonopin he had take earlier. Told pt he was not on Klonopin (pt may have meant Clozaril.)Encouraged pt to take the medications 2 more times, each time he refused. Noted that pt spent a good while in the bathroom. A little while after he came out he agreed to take the medications. Pt took Clozaril and Wellbutrin at 1445, medication education and positive reinforcement provided. S/I, H/I: Pt denies A/VH: Pt denies Sleep: Slept 7 hours per noc shift report ADL's: independent Group attendance: Yes Were meds taken: Yes Any med S/E: Pt stated that he felt tired and sick after lunch, he seemed to think it was because of medications. Mental Status Exam Appearance: Pt dressed in hospital scrubs, clean Eye contact: Good Behavior: Cooperative, constricted Speech: Clear, audible, minimal Mood: Depressed Affect: Flat, depressed, constricted, has moments of brightening and will smile broadly while interacting with staff & peers. Thought process: Linear Thought Content: Pt thinks the voices are just being quiet until he is discharged, pt thinks that the medication makes him feel sick and tired. Cognition: A/O X 4 Insight: Poor Judgment: Poor Interventions PRN's used: None Therapeutic interventions: 1:1 assessment encouragement to express thoughts and feelings, therapeutic conversation, active listening, monitored behaviors and need for intervention, encouraged pt to take ordered medications, medication administration/monitoring/education, maintained Q 15 min safety checks. Restraints/seclusion/emergency medication: N/A Justification of Continued Inpatient Treatment: Pt requires interruption of current crisis, medication adjustment and management in a safe and therapeutic environment.
[2019-07-28] MEDS ORDERED: ondansetron 4mg rapidly disintigrating tab PO PRN (16:05)
[2019-07-28 19:00] VITALS: BP 120/73
[2019-07-28] MEDS: docusate sod 100mg capsule PO SCH (20:00)
[2019-07-28] MEDS ORDERED: buPROPion SR 150mg tablet PO SCH (20:00)
--- NOTE | 2019-07-28 23:30 | NUR ---
Nursing Progress Note: Legal hold: 5250 Exp 08/05 Client on involuntary status for GD Report received from nurse with use of SBAR: LUIS FERNANDO Fox Why are they here: Pt presents to the ER with psychosis and is a poor historian. He reports constant A/V/THOMAS which are bothersome to him. Pt states that he is "Messed in the head." He has poor insight and is unable to recall short term memory AEB not remembering why he stopped taking medications on 07/15, and why he left the [facility] without returning on the . Pt. also reports S/I with a plan to cut himself. Assessment What has happened this shift: This patient is laying in bed following shift change. Patient is awake and well oriented. Patient tells this technical writer "I'm feeling pretty good, I only have some minor depression." Patient admits to hearing kalli voices, he describes the voices saying how long life will be?" Patient refuses to elaborate. This patient denies S/I, or H/I. He denies visual hallucinatins. Patient presents as friendly and cooperative. Patient states he looks forward to being released from [facility]. S/I, H/I: Pt denies. A/VH: Pt denies visual hallucinations, audible hallucinations are present. Sleep: Will tally in am. ADL's: Independent. Group attendance: Yes, on day shift. Were meds taken: Yes, patient is medication compliant. Any med S/E: Pt stated that he felt tired and sick after lunch, he seemed to think it was because of medications. Mental Status Exam Appearance: Pt dressed in hospital scrubs, clean, he is well groomed. Eye contact: Good. Behavior: Cooperative, constricted. Speech: Clear, audible, regular rate, tone, and rhythm. Mood: Depressed. Affect: Flat, depressed, moments of brightening. Thought process: Linear. Thought Content: Pt describes some voices, he does not want to discuss the voices. Cognition: A/O X 4. Insight: Poor Judgment: Poor Interventions PRN's used: None Therapeutic interventions: 1:1 assessment encouragement to express thoughts and feelings, therapeutic conversation, active listening, monitored behaviors and need for intervention, encouraged pt to take ordered medications, medication administration/monitoring/education, maintained Q 15 min safety checks. Restraints/seclusion/emergency medication: N/A Justification of Continued Inpatient Treatment: Pt requires interruption of current crisis, medication adjustment and management in a safe and therapeutic environment.
[2019-07-29 07:00] VITALS: BP 111/72
[2019-07-29] MEDS: sertraline 50mg tablet PO SCH (08:20)
[2019-07-29] MEDS: buPROPion SR 150mg tablet PO SCH ×2 (08:20→12:15)
[2019-07-29] MEDS: docusate sod 100mg capsule PO SCH ×2 (08:20→21:01)
[2019-07-29] MEDS: clozapine 25mg tablet PO SCH ×2 (08:20→12:15)
[2019-07-29] MEDS: clozapine 100mg tablet PO SCH ×3 (08:22→21:02)
[2019-07-29] MEDS: nicotine 21mg patch - 24 hr TD SCH (08:27)
--- NOTE | 2019-07-29 10:35 | NUR ---
Reassessment: Pt continues with 75-100% PO intake on regular diet meeting nutrient needs. LBM 07/28. Routine Colace added to med list 07/28. No nutrition diagnosis at this time. Will continue to follow. Rec: 1. continue regular diet 2. routine bowel care 3. wt per rx Addendum: 07/29/19 at [address] Amended: Links added.
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
[2019-07-29] MEDS: LORazepam 1 MG tablet PO PRN (18:14)
[2019-07-29 20:00] VITALS: BP 120/80
--- NOTE | 2019-07-30 00:27 | NUR ---
Nursing Progress Note Legal hold: 5250 Exp 08/05 Client on involuntary status for GD Report received from nurse with use of SBAR: , warehousing technician What has happened this shift: Patient is awake and well oriented. He is self isolating in his room. Patient tells this process description writer "I'm feeling pretty good. I'm on Wellbutrin, I think it's helping." Patient does complain of feeling tired. He denies any H/I, S/I, or hallucinations. Patient denies any depression. The patient states he ate all meals. Patient is medication compliant. Despite isolating this evening the patient did socialize with others earlier and watched a movie. Patient denies any special needs. S/I, H/I: Pt denies A/VH: At times, not today. Sleep: Will tally at 0500 Hours. ADL's: Independent. Group attendance: Yes, on day shift. Were meds taken: Yes, patient is medication compliant. Any med S/E: None Noted. Mental Status Exam Appearance: Pt dressed in hospital scrubs, clean, well groomed. Eye contact: Good. Behavior: Cooperative, constricted. Speech: Clear, normal rate, rythm, and tone. Mood: Denies depression now however he is isolating. Affect: Blunted. Thought process: Linear. Thought Content: Patient states he wants to find out what is happing to him next. Cognition: A/O X 4. Insight: Poor. Judgment: Poor. Interventions PRN's used: None Therapeutic interventions: 1:1 assessment encouragement to express thoughts and feelings, therapeutic conversation, active listening, monitored behaviors and need for intervention, encouraged pt to take ordered medications, medication administration/monitoring/education, maintained Q 15 min safety checks. Restraints/seclusion/emergency medication: N/A Justification of Continued Inpatient Treatment: Pt requires interruption of current crisis, medication adjustment and management in a safe and therapeutic environment.
[2019-07-30] MEDS ORDERED: LISI-600 PO (06:52)
[2019-07-30 07:00] VITALS: BP 104/61
[2019-07-30] MEDS: clozapine 100mg tablet PO SCH ×3 (08:07→21:00)
[2019-07-30] MEDS: buPROPion SR 150mg tablet PO SCH ×2 (08:07→13:08)
[2019-07-30] MEDS: docusate sod 100mg capsule PO SCH ×2 (08:07→20:00)
[2019-07-30] MEDS: sertraline 50mg tablet PO SCH (08:07)
[2019-07-30] MEDS: clozapine 25mg tablet PO SCH ×2 (08:07→13:08)
[2019-07-30] MEDS: nicotine 21mg patch - 24 hr TD SCH (08:08)
[2019-07-30 09:10] LABS: BASOPHILS # (AUTO) 0.1 X10'3 (0-0.2); BASOPHILS % (AUTO) 0.9 % (0-1); EOSINOPHILS # (AUTO) 0.2 X10'3 (0-0.9); EOSINOPHILS % (AUTO) 2.2 % (0-6); HEMATOCRIT 42.8 % (42.0-52.0); HEMOGLOBIN 14.2 g/dl (14.0-17.9); LYMPHOCYTES # (AUTO) 2.2 X10'3 (1.1-4.8); LYMPHOCYTES % (AUTO) 29.5 % (21-51); MEAN CORPUSCULAR HEMOGLOBIN 29.3 PG (27.0-31.0); MEAN CORPUSCULAR HGB CONC 33.2 g/dL (33.0-36.5); MEAN CORPUSCULAR VOLUME 88.3 FL (78-98); MEAN PLATELET VOLUME 7.9 FL (7.4-10.4); MONOCYTES # (AUTO) 0.7 X10'3 (0-0.9); NEUTROPHILS # (AUTO) 4.4 X10'3 (1.8-7.7); NEUTROPHILS % (AUTO) 58.4 % (42-75); PLATELET COUNT 216 X10'3 (140-440); RED BLOOD COUNT 4.84 X10'6 (4.70-6.10); RED CELL DISTRIBUTION WIDTH 13.1 % (11.5-14.5); WHITE BLOOD COUNT 7.6 X10'3 (4.5-11.0)
--- NOTE | 2019-07-30 17:18 | NUR ---
Nursing Progress Note Legal hold: 5250 Exp 08/05 Client on involuntary status for GD Report received from nurse with use of SBAR: Avril Garcia, change management facilitator What has happened this shift: Patient asleep at change of shift, up for breakfast and medications. Pt. then went to back and slept until shortly before noon. Patient reports that he has not had any AVH today and he is not feeling suicidal at this time. Reports that he feels like his depression is like a cloud that is coming. Pt. states at home he will get paranoid and the voices will tell him that he is in danger then he will run off where no one can find him. Patient sleeping at change of shift. Pt. Got up for meals and back to bed. Pt. States that he is feeling tired, depressed, and just feels like sleeping. Encouraged for pt to get up after lunch nap and socialize with peers. Pt. Did get up for movie group and stayed for entire movie. Pt. Is quiet and does not talk about his feelings without encouragement. S/I, H/I: Pt denies A/VH: States he does hear voices, and some visuals at times. Sleep: Slept 6.5 hours per noc shift report ADL's: independent Group attendance: Yes Were meds taken: Yes Any med S/E: Fatigue. Mental Status Exam Appearance: Pt dressed in hospital scrubs, clean and appropriate. Eye contact: Good Behavior: Cooperative, constricted Speech: Clear, audible, minimal Mood: Depressed Affect: Blunted. Thought process: Linear. circumstantial. Thought Content: Wanting to be left alone to sleep. Cognition: A/O X 4 Insight: Poor Judgment: Poor Interventions PRN's used: None Therapeutic interventions: 1:1 assessment encouragement to express thoughts and feelings, therapeutic conversation, active listening, monitored behaviors and need for intervention, encouraged pt to take ordered medications, medication administration/monitoring/education, maintained Q 15 min safety checks. Restraints/seclusion/emergency medication: N/A Justification of Continued Inpatient Treatment: Pt requires interruption of current crisis, medication adjustment and management in a safe and therapeutic environment.
[2019-07-30 19:16] VITALS: BP 123/84
--- NOTE | 2019-07-30 23:36 | NUR ---
Nursing Progress Note Legal hold: 5250 Exp 08/05 Client on involuntary status for GD Report received from nurse with use of SBAR: Swati RNsurg physician asst What has happened this shift: Patient spent most of the early shift in the community room watching television. The patient is well oriented and cooperative. He ate his meals and has been medication compliant. Patient states he had a good day. He does not make good eye contact. Patient just imply's things are fine. He will not elaborate or engage well in conversation. Patient answers direct questions only. His affect is flat. He denies depression, S/I, H/I, or hallucinations. S/I, H/I: Pt denies. A/VH: At times, not today. Sleep: Will tally at 0500 Hours. ADL's: Independent. Group attendance: Yes, on day shift. Were meds taken: Yes, patient is medication compliant. Any med S/E: None Noted. Mental Status Exam Appearance: Pt dressed in hospital scrubs, clean, well groomed. Eye contact: Good. Behavior: Cooperative, constricted. Speech: Clear, normal rate, rhythm, and tone. Mood: Denies depression, he is quiet. Affect: Blunted/flat. Thought process: Linear. Thought Content: Patient just states "I chilled today." He will not elaborate. . Cognition: A/O X 4. Insight: Poor. Judgment: Poor. Interventions PRN's used: None Therapeutic interventions: 1:1 assessment encouragement to express thoughts and feelings, therapeutic conversation, active listening, monitored behaviors and need for intervention, encouraged pt to take ordered medications, medication administration/monitoring/education, maintained Q 15 min safety checks. Restraints/seclusion/emergency medication: N/A Justification of Continued Inpatient Treatment: Pt requires interruption of current crisis, medication adjustment and management in a safe and therapeutic environment.
[2019-07-31 07:29] VITALS: BP 125/70
[2019-07-31] MEDS: sertraline 50mg tablet PO SCH (08:17)
[2019-07-31] MEDS: docusate sod 100mg capsule PO SCH ×2 (08:17→21:15)
[2019-07-31] MEDS: buPROPion SR 150mg tablet PO SCH ×2 (08:18→13:30)
[2019-07-31] MEDS: nicotine 21mg patch - 24 hr TD SCH (08:18)
[2019-07-31] MEDS: clozapine 25mg tablet PO SCH ×2 (08:18→14:03)
[2019-07-31] MEDS: clozapine 100mg tablet PO SCH ×3 (08:18→21:15)
--- NOTE | 2019-07-31 11:08 | NUR ---
SS had t/c with [facility]'s Coordinator to f/u on LPS Conservatorship Request faxed to them on 07/25/19, per t/c, the request was fwd to Darci Saucedo @ [facility] to f/u w/[facility]'s office. SS completed referral to [facility] & faxed referral & copy of recent PPD to [facility]'s office to facilitate eval for [facility] placement. Plan[facility] placement & LPS Conservatorship request. Shirin Carlos LCSW Addendum: 07/31/19 at 1112 by Shirin Carlos Amended: Links added.
--- NOTE | 2019-07-31 18:13 | NUR ---
Nursing Progress Note Legal hold: 5250 Exp 08/05 Client on involuntary status for GD Report received from nurse with use of SBAR: John, roller man What has happened this shift: Pt. States that he has been feeling fatigued from medications. Instructed pt. That Clozaril is sedating and and it may take some time to get accustomed to the medication, but that it should get better over time. Pt. Gets double portions is continually hungry asking for snacks. Pt. Appears to be in slightly bettter spirits today and is more talkative and social on unit. Patient was able to share in group today and received support from his peers. S/I, H/I: Pt denies A/VH: States he does hear voices, and some visuals at times, but not currently. Sleep: Napped until after lunch. ADL's: independent Group attendance: Yes Were meds taken: Yes Any med S/E: Fatigue. Mental Status Exam Appearance: Pt dressed in hospital scrubs, clean and appropriate. Eye contact: Good Behavior: Cooperative, constricted Speech: Clear, audible, minimal Mood: Depressed Affect: Blunted. Thought process: Linear. circumstantial. Thought Content: Pt. Is thinking about future living situations. Cognition: A/O X 4 Insight: Poor Judgment: Poor Interventions PRN's used: None Therapeutic interventions: 1:1 assessment encouragement to express thoughts and feelings, therapeutic conversation, active listening, monitored behaviors and need for intervention, encouraged pt to take ordered medications, medication administration/monitoring/education, maintained Q 15 min safety checks. Restraints/seclusion/emergency medication: N/A Justification of Continued Inpatient Treatment: Pt requires interruption of current crisis, medication adjustment and management in a safe and therapeutic environment.
[2019-07-31 20:03] VITALS: BP 100/61
[2019-07-31] MEDS: sennosides 8.6mg tablet PO SCH (21:15)
--- NOTE | 2019-08-01 00:40 | NUR ---
Nursing Progress Note: Legal hold: 5250 Exp 08/05 @ 1410 Client on involuntary status for GD Report received from nurse with use of SBAR: LUIS FERNANDO Martinez Why are they here: Pt presents to the ER with psychosis and is a poor historian. He reports constant A/V/THOMAS which are bothersome to him. Pt states that he is "Messed in the head." He has poor insight and is unable to recall short term memory AEB not remembering why he stopped taking medications on 07/15, and why he left the [facility] without returning on the . Pt. also reports S/I with a plan to cut himself. Assessment What has happened this shift: The patient was seen in the rec room for 1:1. He reports that he's doing "great." His meds are working and he's happy. He still endorses hallucinations, "but I don't listen to them...well, not the bad ones anyway." Patient states that he'd like to return to the [facility] since he didn't stay long last time. Patient would like to get a job, an apartment, and try some schooling. He denies anxiety while he bounces around the unit, almost like a child. He is compliant with medications and goes to bed after HS med pass. S/I, H/I: Denies A/VH: +VH. Sleep: See Sleep Assessment Report ADL's: independent. Group attendance: manufacturing supervisor 2nd shift, no group Were meds taken: Yes Any med S/E: None reported or observed Mental Status Exam Appearance: Slightly disheveled, messy hair. wearing street clothes. Eye contact: Good Behavior: Cooperative, guarded Speech: Clear, hyperverbal Mood: "Good", guarded, Affect: Constricted. Thought process: Circumstantial Thought Content: Delusional Cognition: A&O X3 (not to time) Insight: Poor Judgment: Poor Interventions PRN's used: Therapeutic interventions: Ensured contract for safety, provided clear and simple instructions, reoriented to reality, monitored behaviors and need for intervention, minimized environmental stimulation, and maintained Q 15 min safety checks. Restraints/seclusion/emergency medication: N/A Justification of Continued Inpatient Treatment: Pt. requires interruption of current crisis, medication adjustments, and a safe and supportive environment.
[2019-08-01] MEDS: nicotine 21mg patch - 24 hr TD SCH (07:38)
[2019-08-01] MEDS: clozapine 25mg tablet PO SCH ×2 (07:38→12:16)
[2019-08-01] MEDS: sertraline 50mg tablet PO SCH (07:39)
[2019-08-01] MEDS: sennosides 8.6mg tablet PO SCH ×2 (07:39→20:17)
[2019-08-01] MEDS: clozapine 100mg tablet PO SCH ×3 (07:39→20:17)
[2019-08-01] MEDS: buPROPion SR 150mg tablet PO SCH ×2 (07:39→12:16)
[2019-08-01] MEDS: docusate sod 100mg capsule PO SCH ×2 (07:39→20:16)
[2019-08-01 08:00] VITALS: BP 92/46
[2019-08-01 11:09] LABS: BASOPHILS # (AUTO) 0.1 X10'3 (0-0.2); BASOPHILS % (AUTO) 0.8 % (0-1); EOSINOPHILS # (AUTO) 0.2 X10'3 (0-0.9); EOSINOPHILS % (AUTO) 2.2 % (0-6); HEMATOCRIT 42.1 % (42.0-52.0); LYMPHOCYTES # (AUTO) 1.6 X10'3 (1.1-4.8); LYMPHOCYTES % (AUTO) 21.2 % (21-51); MEAN CORPUSCULAR HEMOGLOBIN 29.9 PG (27.0-31.0); MEAN CORPUSCULAR HGB CONC 33.4 g/dL (33.0-36.5); MEAN CORPUSCULAR VOLUME 89.5 FL (78-98); MEAN PLATELET VOLUME 7.9 FL (7.4-10.4); MONOCYTES # (AUTO) 0.8 X10'3 (0-0.9); MONOCYTES % (AUTO) 10.7 % (2-12); NEUTROPHILS # (AUTO) 4.9 X10'3 (1.8-7.7); NEUTROPHILS % (AUTO) 65.1 % (42-75); PLATELET COUNT 212 X10'3 (140-440); RED CELL DISTRIBUTION WIDTH 13.3 % (11.5-14.5); WHITE BLOOD COUNT 7.6 X10'3 (4.5-11.0)
--- NOTE | 2019-08-01 13:59 | NUR ---
Nursing Progress Note Legal hold: 5250 Exp 08/05 Client on involuntary status for GD Report received from nurse with use of SBAR: KERMIT Guerrero Assessment: What has happened this shift: Pt is resting in bed peacefully at change of shift. He is up in the group room for all meals. He is pleasant and cooperative with care and takes his medications as ordered without difficulty. He is seen resting intermittently throughout the day and denies SI/HI/A/VH. He appears somewhat fatigued. S/I, H/I: Pt denies A/VH: denies. Sleep: Napping intermittently. ADL's: independent Group attendance: Yes Were meds taken: Yes Any med S/E: Fatigue. Mental Status Exam Appearance: Pt dressed in hospital scrubs, hair somewhat disheveled. Eye contact: Good Behavior: Cooperative, constricted Speech: Clear, audible, minimal Mood: euthymic Affect: Blunted. Thought process: Linear. circumstantial. Thought Content: Pt. is noting he is fatigued. Cognition: A/O X 4 Insight: Poor Judgment: Poor Interventions PRN's used: None Therapeutic interventions: 1:1 assessment encouragement to express thoughts and feelings, therapeutic conversation, active listening, monitored behaviors and need for intervention, encouraged pt to take ordered medications, medication administration/monitoring/education, maintained Q 15 min safety checks. Restraints/seclusion/emergency medication: N/A Justification of Continued Inpatient Treatment: Pt requires interruption of current crisis, medication adjustment and management in a safe and therapeutic environment.
[2019-08-01 19:17] VITALS: BP 114/84
--- NOTE | 2019-08-01 23:06 | NUR ---
Nursing Progress Note: Legal hold: 5250 Exp 08/05 @ 1410 Client on involuntary status for GD Report received from nurse with use of SBAR: LUIS FERNANDO Fox Why are they here: Pt presents to the ER with psychosis and is a poor historian. He reports constant A/V/THOMAS which are bothersome to him. Pt states that he is "Messed in the head." He has poor insight and is unable to recall short term memory AEB not remembering why he stopped taking medications on 07/15, and why he left the [facility] without returning on the . Pt. also reports S/I with a plan to cut himself. Assessment What has happened this shift: Pt was watching tv in rec room at change of shift. pt was in a friendly mood all evening and interacting with others appropriately. pt reports that "voices aren't bothering him," and denies SI/HI. pt attended snack and then went to bed afterwards. no complaints. S/I, H/I: Denies A/VH: +VH. Sleep: See Sleep Assessment Report ADL's: independent. 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 Thought process: Circumstantial Thought Content: Delusional Cognition: A&O X3 (not to time) Insight: Poor Judgment: Poor Interventions PRN's used: Therapeutic interventions: Ensured contract for safety, provided clear and simple instructions, reoriented to reality, monitored behaviors and need for intervention, minimized environmental stimulation, and maintained Q 15 min safety checks. Restraints/seclusion/emergency medication: N/A Justification of Continued Inpatient Treatment: Pt. requires interruption of current crisis, medication adjustments, and a safe and supportive environment.
[2019-08-02 07:27] VITALS: BP 105/60
[2019-08-02] MEDS: docusate sod 100mg capsule PO SCH ×2 (07:51→20:13)
[2019-08-02] MEDS: sertraline 50mg tablet PO SCH (07:51)
[2019-08-02] MEDS: buPROPion SR 150mg tablet PO SCH ×2 (07:51→13:35)
[2019-08-02] MEDS: sennosides 8.6mg tablet PO SCH ×2 (07:52→20:13)
[2019-08-02] MEDS: clozapine 25mg tablet PO SCH ×2 (07:52→13:35)
[2019-08-02] MEDS: clozapine 100mg tablet PO SCH ×3 (07:52→20:13)
[2019-08-02] MEDS: nicotine 21mg patch - 24 hr TD SCH (07:59)
--- NOTE | 2019-08-02 09:14 | NUR ---
SS had t/c w/[facility] to f/u on referral for pt to go there following d/c, per t/c, [facility] does not have any available male beds at this time, they may have some next week. Plan: will continue to engage [facility] in dcp activities for pt. Shirin Carlos LCSW Addendum: 08/02/19 at 0918 by Shirin Carlos Amended: Links added.
--- NOTE | 2019-08-02 16:54 | NUR ---
Nursing Progress Note: Legal hold: 5250 Exp 08/05 @ 1410 Client on involuntary status for GD Report received from nurse with use of SBAR: LUIS FERNANDO Martinez Why are they here: Pt presents to the ER with psychosis and is a poor historian. He reports constant A/V/THOMAS which are bothersome to him. Pt states that he is "Messed in the head." He has poor insight and is unable to recall short term memory AEB not remembering why he stopped taking medications on 07/15, and why he left the [facility] without returning on the . Pt. also reports S/I with a plan to cut himself. Assessment What happened this shift: Patient sleeps until after lunch, only getting up for meals. Reports that he is still feeling tired, and hasn't noticed any effects yet from antidepressant. He is compliant with all requests, and appears happy to be here. He enjoys watching t.v. S/I, H/I: Denies A/VH: +VH. Sleep: 6.75 hrs NOC. ADL's: independent. Group attendance: Yes. Were meds taken: Yes Any med S/E: None reported or observed Mental Status Exam Appearance: Slightly disheveled, messy hair. wearing street clothes. Eye contact: Good Behavior: Cooperative and calm. Speech: Clear. Normal rate and volume. Mood: Depressed. Affect: Blunted. Thought process: Circumstantial Thought Content: Plans for DC. Cognition: A&O X3 (not to time) Insight: Poor Judgment: Poor Interventions PRN's used: Therapeutic interventions: Ensured contract for safety, provided clear and simple instructions, reoriented to reality, monitored behaviors and need for intervention, minimized environmental stimulation, and maintained Q 15 min safety checks. Restraints/seclusion/emergency medication: N/A Justification of Continued Inpatient Treatment: Pt. requires interruption of current crisis, medication adjustments, and a safe and supportive environment.
[2019-08-02 20:00] VITALS: BP 133/87
[2019-08-02 22:17] VITALS: BP 133/87
--- NOTE | 2019-08-03 00:23 | NUR ---
Nursing Progress Note: Legal hold: 5250 Exp 08/05 @ 1410 Client on involuntary status for GD Report received from nurse with use of SBAR: LUIS FERNANDO Fox Why are they here: Pt presents to the ER with psychosis and is a poor historian. He reports constant A/V/THOMAS which are bothersome to him. Pt states that he is "Messed in the head." He has poor insight and is unable to recall short term memory AEB not remembering why he stopped taking medications on 07/15, and why he left the [facility] without returning on the . Pt. also reports S/I with a plan to cut himself. Assessment What has happened this shift: Pt was watching tv in rec room at change of shift. pt asked for a quick assessment, as he was watching a movie. pt was pleasant and cooperative, reporting that he is "doing good." pt took pm meds with no issue, had snack and then went to bed. S/I, H/I: Denies A/VH: +VH. Sleep: See Sleep Assessment Report ADL's: independent. 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 Thought process: Circumstantial Thought Content: Delusional Cognition: A&O X3 (not to time) Insight: Poor Judgment: Poor Interventions PRN's used: Therapeutic interventions: Ensured contract for safety, provided clear and simple instructions, reoriented to reality, monitored behaviors and need for intervention, minimized environmental stimulation, and maintained Q 15 min safety checks. Restraints/seclusion/emergency medication: N/A Justification of Continued Inpatient Treatment: Pt. requires interruption of current crisis, medication adjustments, and a safe and supportive environment.
[2019-08-03] MEDS: buPROPion SR 150mg tablet PO SCH ×2 (07:19→12:22)
[2019-08-03] MEDS: sertraline 50mg tablet PO SCH (07:19)
[2019-08-03] MEDS: clozapine 25mg tablet PO SCH ×2 (07:19→12:23)
[2019-08-03] MEDS: sennosides 8.6mg tablet PO SCH ×2 (07:19→21:12)
[2019-08-03] MEDS: clozapine 100mg tablet PO SCH ×3 (07:19→21:12)
[2019-08-03] MEDS: nicotine 21mg patch - 24 hr TD SCH (07:20)
[2019-08-03] MEDS: docusate sod 100mg capsule PO SCH ×2 (07:20→21:12)
[2019-08-03 07:31] VITALS: BP 104/65
[2019-08-03] MEDS: LORazepam 1 MG tablet PO PRN (14:50)
--- NOTE | 2019-08-03 14:52 | NUR ---
Nursing Progress Note: [facility] Legal hold: 5250 Exp 08/05 @ 1410 Client on involuntary status for GD Report received from nurse with use of SBAR: Dominique RN Why are they here: Pt presents to the ER with psychosis and is a poor historian. He reports constant A/V/THOMAS which are bothersome to him. Pt states that he is "Messed in the head." He has poor insight and is unable to recall short term memory AEB not remembering why he stopped taking medications on 07/15, and why he left the [facility] without returning on the . Pt. also reports S/I with a plan to cut himself. Assessment What has happened this shift: Patient was sleeping at change of shift. Once out of bed, remains calm, appropriate, cooperative. Upon asking, patient admits he prefers to be called Nathan. Patient denies depression or SI. States everything is under control here, it (the depression) may come back once I am discharged. He is able to form a discharge plan to go to the [facility] Its a nice place, I can do dishes, and clean and they have groups. Participated in groups and interacted well with others. Request Ativan in the afternoon, stated he felt like he was in an aura, "just not right". S/I, H/I: Denies A/VH: Denies Sleep: 7.5 ADL's: independent. Group attendance: Yes Were meds taken: Yes Any med S/E: None reported or observed Mental Status Exam Appearance: slightly disheveled Eye contact: Good Behavior: Cooperative Speech: Clear Mood: "Good" Affect: Constricted. Thought process: Circumstantial Thought Content: discharge plan Cognition: A&O X3 (not to time) Insight: Poor Judgment: Poor Interventions PRN's used: Ativan Therapeutic interventions: Ensured contract for safety, provided clear and simple instructions, reoriented to reality, monitored behaviors and need for intervention, minimized environmental stimulation, and maintained Q 15 min safety checks. Restraints/seclusion/emergency medication: N/A Justification of Continued Inpatient Treatment: Pt. requires interruption of current crisis, medication adjustments, and a safe and supportive environment.
[2019-08-03 19:38] VITALS: BP 132/83
--- NOTE | 2019-08-04 00:10 | NUR ---
Nursing Progress Note: Legal hold: 5250 Exp 08/05 @ 1410 Client on involuntary status for GD Report received from nurse with use of SBAR: LUIS FERNANDO Fox Why are they here: Pt presents to the ER with psychosis and is a poor historian. He reports constant A/V/THOMAS which are bothersome to him. Pt states that he is "Messed in the head." He has poor insight and is unable to recall short term memory AEB not remembering why he stopped taking medications on 07/15, and why he left the [facility] without returning on the . Pt. also reports S/I with a plan to cut himself. Assessment What has happened this shift: Pt was pacing down the isles during shift change. Appeared to be internally occupied making delusional statements and smiling. Later on he was seen in the TV room and stayed here for a couple hours. Pt was cooperative during 1:1 assessment. During physical assessment patient laughed inappropriate a couple times. States that she had a good day as he went to a couple group therapies and he really enjoys this. Pt denies any anxiety at the moment. Pt was also compliant with all his medications. Pt requested to have his feet cleaned because he stated that he was not able to reach them during his shower. He seemed to be fixated on that as he mentioned it a couple times. This filing writer cleaned them with a wet wash cloth and dried them. Denies S/I and hallucinations of any kind. Pt remained in his room sleeping most of the night. S/I, H/I: Denies A/VH: Denies Sleep: See Sleep Assessment Report ADL's: independent. 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 Affect: Constricted. Thought process: Circumstantial Thought Content: Delusional, his feet, getting them cleaned. Cognition: A&O X3 Insight: Poor Judgment: Poor Interventions PRN's used: None Therapeutic interventions: Ensured contract for safety, provided clear and simple instructions, reoriented to reality, monitored behaviors and need for intervention, minimized environmental stimulation, and maintained Q 15 min safety checks. Restraints/seclusion/emergency medication: N/A Justification of Continued Inpatient Treatment: Pt. requires interruption of current crisis, medication adjustments, and a safe and supportive environment.
[2019-08-04 07:41] VITALS: BP 113/63
[2019-08-04] MEDS: sennosides 8.6mg tablet PO SCH ×2 (07:42→21:16)
[2019-08-04] MEDS: sertraline 50mg tablet PO SCH (07:42)
[2019-08-04] MEDS: clozapine 25mg tablet PO SCH ×2 (07:43→12:40)
[2019-08-04] MEDS: docusate sod 100mg capsule PO SCH ×2 (07:43→21:16)
[2019-08-04] MEDS: clozapine 100mg tablet PO SCH ×3 (07:43→21:15)
[2019-08-04] MEDS: buPROPion SR 150mg tablet PO SCH (07:43)
[2019-08-04] MEDS: nicotine 21mg patch - 24 hr TD SCH (07:45)
[2019-08-04] MEDS: BUPROPRION 100 MG PO SCH (12:40)
--- NOTE | 2019-08-04 13:41 | NUR ---
Reassessment: Pt PO 100% avg meals meeting needs. LBM 08/02 receiving colace. No nutrition concerns at this time. Will continue to monitor. Rec: 1. continue regular diet 2. routine bowel care 3. wt per rx Addendum: 08/04/19 at [address] Amended: Links added.
--- NOTE | 2019-08-04 14:39 | NUR ---
Nursing Progress Note: [facility] Legal hold: 5250 Exp 08/05 @ 1410 Client on involuntary status for GD Report received from nurse with use of SBAR: LUIS FERNANDO Lockhart Why are they here: Pt presents to the ER with psychosis and is a poor historian. He reports constant A/V/THOMAS which are bothersome to him. Pt states that he is "Messed in the head." He has poor insight and is unable to recall short term memory AEB not remembering why he stopped taking medications on 07/15, and why he left the [facility] without returning on the . Pt. also reports S/I with a plan to cut himself. Assessment What has happened this shift: Patient was sleeping at change of shift. Compliant and cooperative with 1:1 physical and MH assessment. Admits to some depression without SI. Denies A/V Hallucinations. Upon sitting up, patient holding abdomen, when questioned he admits it hurts. No BM X 4 days. Administered MOM; Positive results with MOM, states abdominal discomfort resolved. Patient observed napping throughout the day except for meals and groups. States he feels very tired. No changes in mood or behavior observed. S/I, H/I: Denies A/VH: Denies Sleep: 7.5 ADL's: independent. Group attendance: Yes Were meds taken: Yes Any med S/E: Constipation Mental Status Exam Appearance: slightly disheveled, wearing dirty green scrubs Eye contact: Good Behavior: Cooperative Speech: Clear Mood: "Good" smiles a lot. Affect: Constricted. Thought process: Circumstantial Thought Content: Cognition: A&O X3 Insight: Poor Judgment: Poor Interventions PRN's used: MOM Therapeutic interventions: Ensured contract for safety, provided clear and simple instructions, reoriented to reality, monitored behaviors and need for intervention, minimized environmental stimulation, and maintained Q 15 min safety checks. Restraints/seclusion/emergency medication: N/A Justification of Continued Inpatient Treatment: Pt. requires interruption of current crisis, medication adjustments, and a safe and supportive environment.
[2019-08-04] MEDS: LORazepam 1 MG tablet PO PRN ×2 (14:54→21:21)
[2019-08-04 19:14] VITALS: BP 127/83
--- NOTE | 2019-08-04 23:56 | NUR ---
Nursing Progress Note: Legal hold: 5250 Exp 08/05 @ 1410 Client on involuntary status for GD Report received from nurse with use of SBAR: LUIS FERNANDO Martinez Why are they here: Pt presents to the ER with psychosis and is a poor historian. He reports constant A/V/THOMAS which are bothersome to him. Pt states that he is "Messed in the head." He has poor insight and is unable to recall short term memory AEB not remembering why he stopped taking medications on 07/15, and why he left the [facility] without returning on the . Pt. also reports S/I with a plan to cut himself. Assessment What has happened this shift: Pt in room sleeping during change of shift. He later on got up and was was in TV room for some time until snack time. Pt was calm and cooperative during 1:1 physical assessment. Compliant with all his medications. Requested an Ativan and stated "I just have been anxious since this morning". Pt denies S/I and hallucinations of any kind but seems to be internally preoccupied. Makes gestures with his hands and seems to be talking to someone. Also laughs inappropriately. His mood appears to be not as happy as usual. Is not smiling as much. Pt returned to his room and sleeps most of the night. No other changes. Will continue to monitor. S/I, H/I: Denies A/VH: Denies Sleep: See Sleep Assessment ADL's: independent. 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 Thought process: Circumstantial Thought Content: Delusional Cognition: A&O X3 Insight: Poor Judgment: Poor Interventions PRN's used: Ativan Therapeutic interventions: Ensured contract for safety, provided clear and simple instructions, reoriented to reality, monitored behaviors and need for intervention, minimized environmental stimulation, and maintained Q 15 min safety checks. Restraints/seclusion/emergency medication: N/A Justification of Continued Inpatient Treatment: Pt. requires interruption of current crisis, medication adjustments, and a safe and supportive environment.
[2019-08-05 07:46] VITALS: BP 109/76
[2019-08-05] MEDS: docusate sod 100mg capsule PO SCH ×2 (08:00→20:14)
[2019-08-05] MEDS: sennosides 8.6mg tablet PO SCH ×2 (08:00→20:14)
[2019-08-05] MEDS: clozapine 25mg tablet PO SCH ×2 (08:00→12:22)
[2019-08-05] MEDS: clozapine 100mg tablet PO SCH ×3 (08:01→20:14)
[2019-08-05] MEDS: BUPROPRION 100 MG PO SCH ×2 (08:01→12:22)
[2019-08-05] MEDS: sertraline 50mg tablet PO SCH (08:01)
[2019-08-05] MEDS: nicotine 21mg patch - 24 hr TD SCH (08:03)
--- NOTE | 2019-08-05 14:15 | NUR ---
Nursing Progress Note: [facility] Legal hold: 527 Client on involuntary status for GD Report received from nurse with use of SBAR: LUIS FERNANDO Miranda Why are they here: Pt presents to the ER with psychosis and is a poor historian. He reports constant A/V/THOMAS which are bothersome to him. Pt states that he is "Messed in the head." He has poor insight and is unable to recall short term memory AEB not remembering why he stopped taking medications on 07/15, and why he left the [facility] without returning on the . Pt. also reports S/I with a plan to cut himself. Assessment What has happened this shift: Pt in room sleeping during change of shift. Woke up for breakfast and immediately returned to room and was again sleeping. Denies depression, denies SI. Up prior to lunch, charged his monitor while watching TV, returned to room after lunch and again was resting in bed. No signs/symptoms of depression, or A/V hallucination. Very pleasant, has a goal to return to the [facility] if possible. Provider has suggested conservatorship. Placed on 5269 for grave disability. Spoke with provider regarding excessive fatigue. S/I, H/I: Denies A/VH: Denies Sleep: 6 ADL's: independent. Group attendance: Were meds taken: Yes Any med S/E: None reported or observed Mental Status Exam Appearance: dissheveled, dirty green scrubs Eye contact: Fair Behavior: Cooperative Speech: Clear Mood: Anxious, downcast expression Affect: Constricted. Thought process: Circumstantial Thought Content: Cognition: A&O X3 Insight: Poor Judgment: Poor Interventions PRN's used: Therapeutic interventions: Ensured contract for safety, provided clear and simple instructions, reoriented to reality, monitored behaviors and need for intervention, minimized environmental stimulation, and maintained Q 15 min safety checks. Restraints/seclusion/emergency medication: N/A Justification of Continued Inpatient Treatment: Pt. requires interruption of current crisis, medication adjustments, and a safe and supportive environment.
[2019-08-05 19:12] VITALS: BP 131/81
--- NOTE | 2019-08-06 00:50 | NUR ---
Nursing Progress Note: Legal hold: 5270 Client on involuntary status for GD Report received from nurse with use of SBAR: LUIS FERNANDO Martinez Why are they here: Pt presents to the ER with psychosis and is a poor historian. He reports constant A/V/THOMAS which are bothersome to him. Pt states that he is "Messed in the head." He has poor insight and is unable to recall short term memory AEB not remembering why he stopped taking medications on 07/15, and why he left the [facility] without returning on the . Pt. also reports S/I with a plan to cut himself. Assessment What has happened this shift: Pt watching TV most of shift. Pt states his depression is 10/10 when by himself; affect is not congruent with this statement. Pt states he enjoys groups and feels the best when he is "with other people." Pt says anxiety is 5/10. Pt is fidgety and gives only intermittent eye contact during assessment. Pt says +AH that are worse in the afternoon, and primarily a whisper that he can no longer determine what is being said. He is observed to be looking behind him, seemingly to check if someone is there, but when the nurse inquires he states "Oh no, I'm fine. I'm just checking." but does not elaborate. Pt ankle bracelet was charged. Pt spontaneously asked how this was and stated "They gave us good food here. But no eggnog." Pt prefers to be called 'Nathan'. S/I, H/I: Denies A/VH: +AH ("they are a background whisper), Denies VH but is observed to be turning around to check if someone is behind him Sleep:See Sleep Assessment ADL's: Independent Group attendance: N/A Were meds taken: Yes Any med S/E: None reported nor observed; Discussion of increased fatigue during the day r/t Cl[place]ar[place] Mental Status Exam Appearance: Personal top with green scrub pants and nonskid socks Eye contact: Intermittent Behavior: Cooperative, Attended snack, watching TV Speech: Clear Mood: "I feel better" Affect: Euthymic, Childlike Thought process: Circumstantial Thought Content: Pt discussed feeling better around others and that he struggles when he is alone Cognition: A&Ox3 Insight: Poor Judgment: Poor to fair Interventions PRN's used: None Therapeutic interventions: Ensured contract for safety, provided clear and simple instructions, reoriented to reality, monitored behaviors and need for intervention, minimized environmental stimulation, and maintained Q 15 min safety checks. Restraints/seclusion/emergency medication: N/A Justification of Continued Inpatient Treatment: Pt. requires interruption of current crisis, medication adjustments, and a safe and supportive environment.
[2019-08-06] MEDS: clozapine 100mg tablet PO SCH ×2 (07:20→20:20)
[2019-08-06] MEDS: sennosides 8.6mg tablet PO SCH ×2 (07:20→20:21)
[2019-08-06] MEDS: BUPROPRION 100 MG PO SCH ×2 (07:20→12:48)
[2019-08-06] MEDS: sertraline 50mg tablet PO SCH (07:20)
[2019-08-06] MEDS: docusate sod 100mg capsule PO SCH ×2 (07:21→20:20)
[2019-08-06] MEDS: nicotine 21mg patch - 24 hr TD SCH (07:21)
[2019-08-06 08:00] VITALS: BP 100/60
--- NOTE | 2019-08-06 10:19 | NUR ---
Nursing Progress Note: Zachariah Legal hold: 5269 Client on involuntary status for GD Report received from nurse with use of SBAR: LUIS FERNANDO Muhammad Why are they here: Pt presents to the ER with psychosis and is a poor historian. He reports constant A/VH which are bothersome to him. Pt states that he is "Messed in the head." He has poor insight and is unable to recall short term memory AEB not remembering why he stopped taking medications on 07/15, and why he left the [facility] without returning on the . Pt. also reports S/I with a plan to cut himself. Assessment What has happened this shift: Pt resting in bed peacefully at the change of shift. He was seen up for breakfast, but has been somewhat isolative and returns to bed in between meals. Denies depression, HI, A/VH, SI. Pt is very pleasant and cooperative with care and takes his medications without incident. His goal is to return to the [facility]. Provider has suggested conservatorship. He was placed on 5269 for grave disability. S/I, H/I: Denies A/VH: Denies Sleep: rests intermittently throughout the shift. ADL's: independent. Group attendance: no Were meds taken: Yes Any med S/E: None reported or observed Mental Status Exam Appearance: disheveled, dirty green scrubs Eye contact: Fair Behavior: Cooperative Speech: Clear Mood: euthymic Affect: Constricted. Thought process: Circumstantial Thought Content: "I am OK". Cognition: A&O X3 Insight: Poor Judgment: Poor Interventions PRN's used: Therapeutic interventions: Ensured contract for safety, provided clear and simple instructions, reoriented to reality, monitored behaviors and need for intervention, minimized environmental stimulation, and maintained Q 15 min safety checks. Restraints/seclusion/emergency medication: N/A Justification of Continued Inpatient Treatment: Pt. requires interruption of current crisis, medication adjustments, and a safe and supportive environment.
[2019-08-06 10:39] LABS: BASOPHILS % (AUTO) 0.5 % (0-1); EOSINOPHILS # (AUTO) 0.2 X10'3 (0-0.9); EOSINOPHILS % (AUTO) 2.3 % (0-6); HEMATOCRIT 42.6 % (42.0-52.0); HEMOGLOBIN 14.3 g/dl (14.0-17.9); LYMPHOCYTES % (AUTO) 25.5 % (21-51); MEAN CORPUSCULAR HEMOGLOBIN 29.6 PG (27.0-31.0); MEAN CORPUSCULAR HGB CONC 33.6 g/dL (33.0-36.5); MEAN CORPUSCULAR VOLUME 88.1 FL (78-98); MEAN PLATELET VOLUME 8.3 FL (7.4-10.4); NEUTROPHILS # (AUTO) 4.8 X10'3 (1.8-7.7); NEUTROPHILS % (AUTO) 59.7 % (42-75); PLATELET COUNT 216 X10'3 (140-440); RED BLOOD COUNT 4.83 X10'6 (4.70-6.10); RED CELL DISTRIBUTION WIDTH 13.4 % (11.5-14.5)
[2019-08-06] MEDS: clozapine 25mg tablet PO SCH (12:57)
[2019-08-06] MEDS: acetaminophen 325mg tablet PO PRN (20:22)
[2019-08-06] MEDS ORDERED: aripiprazole 5mg tablet PO SCH (21:00)
--- NOTE | 2019-08-07 00:50 | NUR ---
Nursing Progress Note: Legal hold: 5270 Client on involuntary status for GD Report received from nurse with use of SBAR: Stu RN Why are they here: Pt presents to the ER with psychosis and is a poor historian. He reports constant A/VH which are bothersome to him. Pt states that he is "Messed in the head." He has poor insight and is unable to recall short term memory AEB not remembering why he stopped taking medications on 07/15, and why he left the [facility] without returning on the . Pt. also reports S/I with a plan to cut himself. Assessment What has happened this shift:Pt resting in bed for part of the shift then went to the group room to watch TV and charge ankle bracelet. Pt stated he felt depressed today because he was "thinking a lot about the future in my room." RN encourage pt to join peers in group room as pt states this makes his depression decrease. Pt agreed and was brighter after watching TV and attending snack. Pt states Anxiety is 5/10 and that he has a mild headache this evening for which he took Tylenol to good effect. S/I, H/I: Denies A/VH: Denies Sleep: See Sleep Assessment ADL's: Independent Group attendance: N/A Were meds taken: Yes Any med S/E: None reported nor observed Mental Status Exam Appearance: Wearing personal clothing and nonskid socks, hair unbrushed Eye contact: Fair Behavior: Cooperative, Attending HS snack, Watching TV Speech: Clear Mood: Depressed 10/10, Anxiety 5/10 Affect: Blunted with frequent brightening, Childlike Thought process: Circumstantial Thought Content: thinking about the future Cognition: A&O X3 (off for circumstance) Insight: Poor Judgment: Poor to fair Interventions PRN's used: Tylenol Therapeutic interventions: Ensured contract for safety, provided clear and simple instructions, reoriented to reality, monitored behaviors and need for intervention, minimized environmental stimulation, and maintained Q 15 min safety checks. Restraints/seclusion/emergency medication: N/A Justification of Continued Inpatient Treatment: Pt. requires interruption of current crisis, medication adjustments, and a safe and supportive environment.
[2019-08-07] MEDS: nicotine 21mg patch - 24 hr TD SCH (07:02)
[2019-08-07] MEDS: docusate sod 100mg capsule PO SCH ×2 (07:03→20:09)
[2019-08-07] MEDS: clozapine 25mg tablet PO SCH ×2 (07:03→13:48)
[2019-08-07] MEDS: sertraline 50mg tablet PO SCH (07:03)
[2019-08-07] MEDS: BUPROPRION 100 MG PO SCH ×2 (07:03→13:48)
[2019-08-07] MEDS: sennosides 8.6mg tablet PO SCH ×2 (07:03→20:10)
[2019-08-07] MEDS: acetaminophen 325mg tablet PO PRN ×2 (07:36→14:07)
[2019-08-07 08:00] VITALS: BP 118/62
--- NOTE | 2019-08-07 09:20 | NUR ---
DISCHARGE PLANNING Called [facility] office to inquire about [facility] referral. Was informed that they received the referral, however, it has not been reviewed yet. Also left a message for Augustine, [facility] tank house supervisor, requesting a call back. MATTHIEU Strange
--- NOTE | 2019-08-07 15:53 | NUR ---
Discharge Planning: Pt's 5270 Hold will 09/04/19, SS accompanied Rupal and met w/pt to engage pt in dcp activities. Per discussion, pt is homeless hangs out in front of the library during the day time and is up all night. SS provided info [facility] pt is willing to go there to check in following d/c and would like for SS to let the [facility] know to check-in w/him at the library. Pt agreed to allow SS to contact [facility] Dept of Probation to see if they can provide any support. SS had t/c with Dept of Probation, per t/c, pt is no longer on probation.
--- NOTE | 2019-08-07 16:05 | NUR ---
Discharge Planning: Accompanied Rupal & engaged pt in dcp activities to identify potential d/c destination. Per discussion, pt reports that he is homeless and usually hangs out in front of the library during the day. Pt has no income. SS also informed pt that he will not be able to utilize the [facility] chcf services. Engaged pt in identifying community resources that he can access for MH support. Pt is agreeable to access [facility] and have their mobile crisis team make contact w/him @ the [facility]. Pt agreeable to have SS contact his county health officer to see if parole has any chcf resources. SS expressed concerns re pt's ability to access & manage medications following d/c. SS had t/c w/[place] [employer] Probation, per t/c, pt is no longer on parole/probation. Plan: SS to contact [facility] in the AM to advocate for pt to be able to access some services @ the [place] SS to contact [facility] to coordinate aftercare plan SS to contact [facility] to coordinate check-ins following d/c Shirin Carlos LCSW Addendum: 08/07/19 at 1614 by Sihrin BEAN Amended: Links added.
--- NOTE | 2019-08-07 16:10 | NUR ---
Nursing Progress Note: Zachariah Legal hold: 5270 Client on involuntary status for GD Report received from nurse with use of SBAR: LUIS FERNANDO Patrick Why are they here: Pt presents to the ER with psychosis and is a poor historian. He reports constant A/VH which are bothersome to him. Pt states that he is "Messed in the head." He has poor insight and is unable to recall short term memory AEB not remembering why he stopped taking medications on 07/15, and why he left the [facility] without returning on the . Pt. also reports S/I with a plan to cut himself. Assessment What has happened this shift: Pt resting in bed peacefully at the change of shift. He was seen up for breakfast. He denies depression, HI, A/VH, SI. Pt is very pleasant and cooperative with care and takes his medications without incident. Pt has c/o headache and nausea, Maalox, Tylenol x2, and Ativan. Per MIRI Tucker, the headache might be associated with the Abilify so she will be changing this medication. Pt had a court hearing today and did not attend or contest. Pt was noted to be pacing and banging on the jacobson as well as checking the front door x 3 in the afternoon. Will continue to monitor. S/I, H/I: Denies A/VH: Denies Sleep: naps minimally ADL's: independent. Group attendance: no Were meds taken: Yes Any med S/E: possible headache from the Abilify Mental Status Exam Appearance: disheveled, street clothing Eye contact: Fair Behavior: Cooperative, energetic Speech: Clear Mood: euthymic Affect: Constricted, with brightening during conversation. Thought process: Circumstantial, Thought Content: "My head hurts". Cognition: A&O X3 Insight: Poor Judgment: Poor Interventions PRN's used: Therapeutic interventions: Ensured contract for safety, provided clear and simple instructions, reoriented to reality, monitored behaviors and need for intervention, minimized environmental stimulation, and maintained Q 15 min safety checks. Restraints/seclusion/emergency medication: N/A Justification of Continued Inpatient Treatment: Pt. requires interruption of current crisis, medication adjustments, and a safe and supportive environment.
[2019-08-07] MEDS: OLANZapine 5mg rapidly disint. tablet PO PRN (17:56)
[2019-08-07] MEDS: CARIPRAZINE 1.5 MG CAPSULE PO SCH (18:44)
[2019-08-07 19:50] VITALS: BP 126/81
[2019-08-07] MEDS: clozapine 100mg tablet PO SCH (20:13)
--- NOTE | 2019-08-08 01:05 | NUR ---
Nursing Progress Note: Legal hold: 5270 Client on involuntary status for GD Report received from nurse with use of SBAR: Dominique RN Why are they here: Pt presents to the ER with psychosis and is a poor historian. He reports constant A/VH which are bothersome to him. Pt states that he is "Messed in the head." He has poor insight and is unable to recall short term memory AEB not remembering why he stopped taking medications on 07/15, and why he left the [facility] without returning on the . Pt. also reports S/I with a plan to cut himself. Assessment What has happened this shift:Pt in rec room watching music videos at change of shift. pt was pleasant and cooperative for 1:1, denying any complaints except mild "stomach ache." pt denied SI/HI and says he likes it here. Pt walked the halls smiling before going to bed after snack. S/I, H/I: Denies A/VH: Denies Sleep: See Sleep Assessment ADL's: Independent Group attendance: N/A Were meds taken: Yes Any med S/E: None reported nor observed Mental Status Exam Appearance: clean clothes Eye contact: Fair Behavior: Cooperative Speech: Clear Mood: content Affect: Blunted with frequent brightening, Childlike Thought process: Circumstantial Thought Content: thinking about the future Cognition: A&O X3 (off for circumstance) Insight: Poor Judgment: Poor to fair Interventions PRN's used: none Therapeutic interventions: Ensured contract for safety, provided clear and simple instructions, reoriented to reality, monitored behaviors and need for intervention, minimized environmental stimulation, and maintained Q 15 min safety checks. Restraints/seclusion/emergency medication: N/A Justification of Continued Inpatient Treatment: Pt. requires interruption of current crisis, medication adjustments, and a safe and supportive environment.
[2019-08-08 07:21] VITALS: BP 100/57
--- NOTE | 2019-08-08 07:22 | NUR ---
DISCHARGE PLANNING Spoke to JOHNNA Bradshaw, regarding Ct's referral. He reported they will not take Ct back as he is not appropriate for the facility. MATTHIEU Strange
[2019-08-08] MEDS: sertraline 50mg tablet PO SCH (08:41)
[2019-08-08] MEDS: clozapine 25mg tablet PO SCH ×2 (08:42→13:04)
[2019-08-08] MEDS: BUPROPRION 100 MG PO SCH ×2 (08:42→13:04)
[2019-08-08] MEDS: sennosides 8.6mg tablet PO SCH ×2 (08:42→21:21)
[2019-08-08] MEDS: CARIPRAZINE 1.5 MG CAPSULE PO SCH (08:44)
[2019-08-08] MEDS: docusate sod 100mg capsule PO SCH ×2 (08:44→21:21)
[2019-08-08] MEDS: nicotine 21mg patch - 24 hr TD SCH (08:45)
--- NOTE | 2019-08-08 14:17 | NUR ---
DISCHARGE PLANNING Left message with ROBERTA Fuentes, regarding possible [facility] referral. Requested she call publications writer back. MATTHIEU Strange
--- NOTE | 2019-08-08 17:37 | NUR ---
Nursing Progress Note: Legal hold: 5270 Client on involuntary status for GD Report received from nurse with use of SBAR: Yolanda RN Why are they here: Pt presents to the ER with psychosis and is a poor historian. He reports constant A/VH which are bothersome to him. Pt states that he is "Messed in the head." He has poor insight and is unable to recall short term memory AEB not remembering why he stopped taking medications on 07/15, and why he left the [facility] without returning on the . Pt. also reports S/I with a plan to cut himself. Assessment What has happened this shift: Pt. was sleeping at change of shift and rested on and off in his room until the afternoon. He has been in good spirits this afternoon, joking and laughing with staff and peers on unit. Pt. has been compliant on unit, taking medications, attending meals without any incidence of agitation. S/I, H/I: Denies A/VH: Denies Sleep: naps in a.m. ADL's: independent. Group attendance: no Were meds taken: Yes Any med S/E: None noted. Mental Status Exam Appearance: Clean and freshly showered in green scrubs. Eye contact: Fair Behavior: Cooperative Speech: Clear Mood: euthymic Affect: Constricted, with brightening during conversation. Thought process: Circumstantial, Thought Content: Meeting basic needs. Cognition: A&O X3 Insight: Poor Judgment: Poor Interventions PRN's used: Therapeutic interventions: Ensured contract for safety, provided clear and simple instructions, reoriented to reality, monitored behaviors and need for intervention, minimized environmental stimulation, and maintained Q 15 min safety checks. Restraints/seclusion/emergency medication: N/A Justification of Continued Inpatient Treatment: Pt. requires interruption of current crisis, medication adjustments, and a safe and supportive environment to prevent rehospitalization.
[2019-08-08] MEDS: acetaminophen 325mg tablet PO PRN (17:44)
[2019-08-08] MEDS: LORazepam 1 MG tablet PO PRN (18:20)
[2019-08-08 20:00] VITALS: BP 145/89
[2019-08-08] MEDS: clozapine 100mg tablet PO SCH (21:21)
[2019-08-08 23:10] VITALS: BP 145/89
--- NOTE | 2019-08-08 23:25 | NUR ---
Nursing Progress Note: Legal hold: 5270 Client on involuntary status for GD Report received from nurse with use of SBAR: Dominique RN Why are they here: Pt presents to the ER with psychosis and is a poor historian. He reports constant A/VH which are bothersome to him. Pt states that he is "Messed in the head." He has poor insight and is unable to recall short term memory AEB not remembering why he stopped taking medications on 07/15, and why he left the [facility] without returning on the . Pt. also reports S/I with a plan to cut himself. Assessment What has happened this shift: This patient socialized with others all evening. He is well oriented and upbeat. He denies S/I, H/I, or any hallucinations. Patient tells this speech writer he feels fine. He denies any depression. Patient states he attended groop on day shift. Patient ate complete meals and is medication compliant. He looks forward to advancing his life. S/I, H/I: Denies A/VH: Denies Sleep: Will tally at 0500 ADL's: Independent. Group attendance: Patient stated yes, on day shift. Were meds taken: Yes, patient is medication compliant. Any med S/E: None noted. Mental Status Exam Appearance: Clean and freshly showered in green scrubs. Eye contact: Good Behavior: Cooperative, friendly. Speech: Clear, normal tone, rate, and rhythm. Mood: Euthymic Affect: Constricted, with brightening during conversation. Thought process: Circumstantial, Thought Content: Meeting basic needs. Cognition: A&O X3 Insight: Poor Judgment: Poor Interventions PRN's used: Therapeutic interventions: Ensured contract for safety, provided clear and simple instructions, reoriented to reality, monitored behaviors and need for intervention, minimized environmental stimulation, and maintained Q 15 min safety checks. Restraints/seclusion/emergency medication: N/A Justification of Continued Inpatient Treatment: Pt. requires interruption of current crisis, medication adjustments, and a safe and supportive environment to prevent rehospitalization.
[2019-08-09 07:00] VITALS: BP 99/57
[2019-08-09] MEDS: clozapine 25mg tablet PO SCH ×2 (07:25→13:21)
[2019-08-09] MEDS: BUPROPRION 100 MG PO SCH ×2 (07:25→13:21)
[2019-08-09] MEDS: CARIPRAZINE 1.5 MG CAPSULE PO SCH (07:27)
[2019-08-09] MEDS: docusate sod 100mg capsule PO SCH ×2 (07:59→20:39)
[2019-08-09] MEDS: sertraline 50mg tablet PO SCH (07:59)
[2019-08-09] MEDS: sennosides 8.6mg tablet PO SCH ×2 (07:59→20:39)
--- NOTE | 2019-08-09 08:04 | NUR ---
Discharge Planning: Pt did not contest his 5270 Hold at the [facility] on 08/07 and will continue @ [facility] until hold expires on 09/04/19. Pt has no social support & is homeless, he is also unable to manage his meds and therefore need support. SS had t/c w/[facility] Athletic Coach-Gina, left vm request rt p/c to participate in pt's dcp. Pt's MediCal is pending approval, he will need CM support to apply for SSI, he will also benefit for [facility] services via [facility] to prevent decompensation following d/c. Plan: SS will continue to engage [facility] in dcp activities. Shirin Carlos LCSW Addendum: 08/09/19 at 0810 by Shirin Carlos Amended: Links added.
[2019-08-09] MEDS: nicotine 21mg patch - 24 hr TD SCH (08:11)
--- NOTE | 2019-08-09 11:29 | NUR ---
DISCHARGE PLANNING Spoke to Gina [facility], regarding [facility] referral. She suggested that upon discharge Ct have a scheduled appt with [facility] for a Comp Assessment who then can possibly refer him for [facility]. Will keep her apprised as to when Ct may discharge. MATTHIEU Strange
[2019-08-09] MEDS: acetaminophen 325mg tablet PO PRN (15:54)
--- NOTE | 2019-08-09 17:43 | NUR ---
Nursing Progress Note: Legal hold: 5270 Client on involuntary status for GD Report received from nurse with use of SBAR: Yolanda RN Why are they here: Pt presents to the ER with psychosis and is a poor historian. He reports constant A/VH which are bothersome to him. Pt states that he is "Messed in the head." He has poor insight and is unable to recall short term memory AEB not remembering why he stopped taking medications on 07/15, and why he left the [facility] without returning on the . Pt. also reports S/I with a plan to cut himself. Assessment What has happened this shift: Patient awoke in a good mood today and has spent his time in the rec room watching t.v., attending meals, taking medications as ordered. Pt. c/o anxiety and a headache and received Tylenol and Ativan with good effect. Patient is well liked on unit and is social with peers and staff. S/I, H/I: Denies A/VH: Denies Sleep: naps in a.m. ADL's: independent. Group attendance: no Were meds taken: Yes Any med S/E: None noted. Mental Status Exam Appearance: Clean and freshly showered in green scrubs. Eye contact: Fair Behavior: Cooperative Speech: Clear Mood: euthymic Affect: Constricted, with brightening during conversation. Thought process: Circumstantial, Thought Content: Meeting basic needs. Watching t.v., DC Cognition: A&O X3 Insight: Poor Judgment: Poor Interventions PRN's used: None Therapeutic interventions: Ensured contract for safety, provided clear and simple instructions, reoriented to reality, monitored behaviors and need for intervention, minimized environmental stimulation, and maintained Q 15 min safety checks. Restraints/seclusion/emergency medication: N/A Justification of Continued Inpatient Treatment: Pt. requires interruption of current crisis, medication adjustments, and a safe and supportive environment to prevent rehospitalization.
[2019-08-09 20:00] VITALS: BP 114/73
[2019-08-09 20:39] VITALS: BP 139/77
[2019-08-09] MEDS: clozapine 100mg tablet PO SCH (20:40)
--- NOTE | 2019-08-10 02:06 | NUR ---
Nursing Progress Note: Legal hold: 5270 Client on involuntary status for GD Report received from nurse with use of SBAR: Dominique RN Why are they here: Pt presents to the ER with psychosis and is a poor historian. He reports constant A/VH which are bothersome to him. Pt states that he is "Messed in the head." He has poor insight and is unable to recall short term memory AEB not remembering why he stopped taking medications on 07/15, and why he left the [facility] without returning on the . Pt. also reports S/I with a plan to cut himself. Assessment What has happened this shift: Pt resting in bed for part of the shift then went to the group room to watch TV and charge ankle bracelet. Pt stated he feels depressed when alone, but happier when around people. He stated "the sadness follows me, it's just how it is". Pt enjoys drawing and shared some pieces from art therapy, explaining, " I used to live in [place], after I became interested in the revolutionary war, that's why I katie [place] [employer]. I had a birthday alliance party over there and we shot off cannons!" RN encourage pt to join peers in group room as pt states this makes his depression decrease. Pt states he has been thinking about his future a lot lately. "I want to join the [employer]!" Pt retrieved some clothing from the donation bin, but is still in search of shoes. Pt is friendly with staff and peers, and routinely engages with others on the unit. S/I, H/I: Denies A/VH: Denies Sleep: See Sleep Assessment ADL's: Independent Group attendance: N/A Were meds taken: Yes Any med S/E: None reported nor observed Mental Status Exam Appearance: Wearing personal clothing and nonskid socks Eye contact: Direct Behavior: Cooperative, Attending HS snack, Watching TV Speech: Clear Mood: Depressed 8/10 (when alone), Anxiety 4/10 Affect: Bright Thought process: Linear Thought Content: thinking about the future, delusions regarding living in [place] Cognition: A&O X3 (off for circumstance) Insight: Poor Judgment: Poor to fair Interventions PRN's used: None Therapeutic interventions: Ensured contract for safety, provided clear and simple instructions, reoriented to reality, monitored behaviors and need for intervention, minimized environmental stimulation, and maintained Q 15 min safety checks. Restraints/seclusion/emergency medication: N/A Justification of Continued Inpatient Treatment: Pt. requires interruption of current crisis, medication adjustments, and a safe and supportive environment. Currently seeking placement; most recently referred to [facility].
[2019-08-10] MEDS: BUPROPRION 100 MG PO SCH ×2 (07:36→12:30)
[2019-08-10] MEDS: sennosides 8.6mg tablet PO SCH ×2 (07:37→20:38)
[2019-08-10] MEDS: sertraline 50mg tablet PO SCH (07:37)
[2019-08-10] MEDS: clozapine 25mg tablet PO SCH ×2 (07:37→12:43)
[2019-08-10] MEDS: docusate sod 100mg capsule PO SCH ×2 (07:37→20:38)
[2019-08-10] MEDS: CARIPRAZINE 1.5 MG CAPSULE PO SCH (07:38)
[2019-08-10] MEDS: nicotine 21mg patch - 24 hr TD SCH (07:40)
[2019-08-10 07:59] VITALS: BP 122/68
[2019-08-10] MEDS: LORazepam 1 MG tablet PO PRN ×2 (15:07→19:08)
[2019-08-10] MEDS: OLANZapine 5mg rapidly disint. tablet PO PRN (15:08)
--- NOTE | 2019-08-10 16:39 | NUR ---
Nursing Progress Note: Scotty Legal hold: 5270 Client on involuntary status for GD Report received from nurse with use of SBAR: Yolanda RN Why are they here: Pt presents to the ER with psychosis and is a poor historian. He reports constant A/VH which are bothersome to him. Pt states that he is "Messed in the head." He has poor insight and is unable to recall short term memory AEB not remembering why he stopped taking medications on 07/15, and why he left the [facility] without returning on the . Pt. also reports S/I with a plan to cut himself. Assessment What has happened this shift: Client in bed to begin the shift (629). Client amicable with assessment as well as medications but he opted for no nicotine patch this am. Client is alert and oriented x 4 and his behavior appears appropriate for unit. There is an issue as it pertains to client parole/probation status. SW verified that client is on informal probation via phone call. Client will continue to wear ankle bracelet until a solid confirmation of status is obtained. Client given Ativan 1 mg and 5 mg Zydis po at 1500 hours for agitation. Client took medication without hesitation and medication was effective per client. Client has been visible on unit this afternoon and his behaviors are appropriate for unit. S/I, H/I: Denies A/VH: Denies Sleep: 7.5 last shift and client rested at times this shift. ADL's: Independent Group attendance: Yes Were meds taken: Yes Any med S/E: None reported nor observed Mental Status Exam Appearance: Wearing personal clothing and nonskid socks Eye contact: Direct Behavior: Cooperative, Attending HS snack, Watching TV Speech: Clear Mood: Depressed 8/10 (when alone), Anxiety 4/10 Affect: Bright Thought process: Linear Thought Content: thinking about the future, delusions regarding living in [place] Cognition: A&O X3 (off for circumstance) Insight: Poor Judgment: Poor to fair Interventions PRN's used: None Therapeutic interventions: Ensured contract for safety, provided clear and simple instructions, reoriented to reality, monitored behaviors and need for intervention, minimized environmental stimulation, and maintained Q 15 min safety checks. Restraints/seclusion/emergency medication: N/A Justification of Continued Inpatient Treatment: Pt. requires interruption of current crisis, medication adjustments, and a safe and supportive environment. Currently seeking placement; most recently referred to [facility].
[2019-08-10] MEDS: NICOTINE POLACRILEX 2 MG LOZENGE BC PRN ×2 (18:57→21:00)
[2019-08-10 19:36] VITALS: BP 114/73
[2019-08-10] MEDS: clozapine 100mg tablet PO SCH (20:39)
--- NOTE | 2019-08-11 00:05 | NUR ---
Nursing Progress Note: Scotty Legal hold: 5270 Client on involuntary status for GD Report received from nurse with use of SBAR: LUIS FERNANDO Martinez Why are they here: Pt presents to the ER with psychosis and is a poor historian. He reports constant A/VH which are bothersome to him. Pt states that he is "Messed in the head." He has poor insight and is unable to recall short term memory AEB not remembering why he stopped taking medications on 07/15, and why he left the [facility] without returning on the . Pt. also reports S/I with a plan to cut himself. Assessment What has happened this shift: Patient was seen walking up and down the isles during shift change, wearing street clothes with no shoes. Pt asked for an Ativan and Nicotine lozenge. Pt sates that he had a good day. Pt seems anxious and when asked he says that he feels this way. Pt was cooperative during 1:1 physical assessment and medication compliant. Pt denies S/I and H/I. Pt is delusional and states "I see myself just walking around. Like right now I see myself getting a job. Pretty cool." Pt did not make any other delusional statements and once again asked for nicotine lozenge. Pt remained in the TV room until 2229. He remained in his room sleeping for the rest of the night. S/I, H/I: Denies A/VH: sates that he sees himself walking up and down Sleep: See sleep assessment ADL's: Independent Group attendance: none during restaurant shift leader Were meds taken: Yes Any med S/E: None reported nor observed Mental Status Exam Appearance: Wearing personal clothing and white socks, no shoes Eye contact: Direct Behavior: Cooperative Speech: Clear Mood: Depressed, Anxiety Affect: Congruent Thought process: Linear Thought Content: feeling anxious Cognition: A&O X3 Insight: Poor Judgment: Poor to fair Interventions PRN's used: None Therapeutic interventions: Ensured contract for safety, provided clear and simple instructions, reoriented to reality, monitored behaviors and need for intervention, minimized environmental stimulation, and maintained Q 15 min safety checks. Restraints/seclusion/emergency medication: N/A Justification of Continued Inpatient Treatment: Pt. requires interruption of current crisis, medication adjustments, and a safe and supportive environment. Currently seeking placement; most recently referred to [facility].
[2019-08-11] MEDS ORDERED: CARIPRAZINE 1.5 MG CAPSULE PO SCH (08:00)
[2019-08-11] MEDS: BUPROPRION 100 MG PO SCH ×2 (08:01→12:30)
[2019-08-11] MEDS: docusate sod 100mg capsule PO SCH ×2 (08:01→21:01)
[2019-08-11] MEDS: sennosides 8.6mg tablet PO SCH ×2 (08:02→21:01)
[2019-08-11] MEDS: clozapine 25mg tablet PO SCH ×2 (08:02→12:29)
[2019-08-11] MEDS: sertraline 50mg tablet PO SCH (08:02)
[2019-08-11] MEDS: nicotine 21mg patch - 24 hr TD SCH (08:04)
[2019-08-11 08:22] VITALS: BP 125/84
--- NOTE | 2019-08-11 09:15 | NUR ---
Reassessment: Pt PO intake avg 100% on regular diet, meeting needs. LBM 08/10, receiving routine bowel care. No nutrition diagnosis at this time. Will continue to monitor. Rec: 1. continue regular diet 2. routine bowel care 3. wt per rx Addendum: 08/11/19 at 0915 by Wing Kenia LYN Amended: Links added. Addendum: 08/11/19 at [address] EBONI Approjermaine
[2019-08-11] MEDS: LORazepam 1 MG tablet PO PRN ×2 (15:21→19:41)
[2019-08-11] MEDS: OLANZapine 5mg rapidly disint. tablet PO PRN (15:21)
--- NOTE | 2019-08-11 17:00 | NUR ---
Nursing Progress Note: Legal hold: 5270 Client on involuntary status for GD Report received from nurse with use of SBAR: Catalina RN Why are they here: Pt presents to the ER with psychosis and is a poor historian. He reports constant A/VH which are bothersome to him. Pt states that he is "Messed in the head." He has poor insight and is unable to recall short term memory AEB not remembering why he stopped taking medications on 07/15, and why he left the [facility] without returning on the . Pt. also reports S/I with a plan to cut himself. Assessment What has happened this shift: Pt. asleep at start of shift. Pt. awake for medications and ate all meals in community room. Pt. denies SI/HI, A/V hallucinations. Pt. anxious and pacing the halls at time but cooperative. Pt. became hyper in afternoon and agitated and given Zyprexa 5mg po and Ativan 1mg po with good effect. S/I, H/I: Denies A/VH: Not now Sleep: Pt. did not nap. ADL's: Independent Group attendance: Yes Were meds taken: Yes Any med S/E: None reported nor observed Mental Status Exam Appearance: Wearing personal clothing and white socks, no shoes Eye contact: Direct Behavior: Cooperative Speech: Clear Mood: euthymic but anxious at times. Affect: Congruent with mood Thought process: Linear Thought Content: Food Cognition: A&O X3 Insight: Poor Judgment: Poor to fair Interventions PRN's used: Zyprexa and Ativan Therapeutic interventions: Ensured contract for safety, provided clear and simple instructions, reoriented to reality, monitored behaviors and need for intervention, minimized environmental stimulation, and maintained Q 15 min safety checks. Restraints/seclusion/emergency medication: N/A Justification of Continued Inpatient Treatment: Pt. requires interruption of current crisis, medication adjustments, and a safe and supportive environment. Currently seeking placement; most recently referred to [facility] team.
[2019-08-11 20:00] VITALS: BP 114/71
[2019-08-11] MEDS: clozapine 100mg tablet PO SCH (21:01)
--- NOTE | 2019-08-12 00:36 | NUR ---
Nursing Progress Note: Legal hold: 5270 Client on involuntary status for GD Report received from nurse with use of SBAR: LUIS FERNANDO Martinez Why are they here: Pt presents to the ER with psychosis and is a poor historian. He reports constant A/VH which are bothersome to him. Pt states that he is "Messed in the head." He has poor insight and is unable to recall short term memory AEB not remembering why he stopped taking medications on 07/15, and why he left the [facility] without returning on the . Pt. also reports S/I with a plan to cut himself. Assessment What has happened this shift: Pt was in his room resting during shift change. States that he feels tired but had a good day. Later he go up and was requesting an Ativan which was too early. When asked what he felt anxious about he said that he felt like a black shadow was following him and watches everything he does but he state "its daja cool" with a smile. Pt was pleasant and cooperative during 1:1 physical assessment. Pt denies any S/I or H/I. Pt also took a shower and asked for his laundry to be washed. Pt was interacting appropriately with other patients and spent some time in the TV room for some time before residing to bed. He slept most of the night. S/I, H/I: Denies A/VH: denies but sates that he feels a black shadow following him. 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 Affect: Congruent with mood Thought process: Linear Thought Content: feeling anxious Cognition: A&O X3 Insight: Poor Judgment: Poor to fair Interventions PRN's used: Ativan Therapeutic interventions: Ensured contract for safety, provided clear and simple instructions, reoriented to reality, monitored behaviors and need for intervention, minimized environmental stimulation, and maintained Q 15 min safety checks. Restraints/seclusion/emergency medication: N/A Justification of Continued Inpatient Treatment: Pt. requires interruption of current crisis, medication adjustments, and a safe and supportive environment. Currently seeking placement; most recently referred to [facility].
[2019-08-12 07:10] VITALS: BP 115/73
[2019-08-12] MEDS: clozapine 25mg tablet PO SCH ×3 (07:26→14:14)
[2019-08-12] MEDS: BUPROPRION 100 MG PO SCH ×2 (07:26→12:30)
[2019-08-12] MEDS: docusate sod 100mg capsule PO SCH ×2 (07:27→20:58)
[2019-08-12] MEDS: sennosides 8.6mg tablet PO SCH ×2 (07:28→20:58)
[2019-08-12] MEDS: ATOMOXETINE 40 MG PO SCH (07:33)
[2019-08-12] MEDS: nicotine 21mg patch - 24 hr TD SCH (07:34)
[2019-08-12] MEDS: CARIPRAZINE 1.5 MG CAPSULE PO SCH (07:35)
[2019-08-12] MEDS: sertraline 50mg tablet PO SCH (07:35)
[2019-08-12 11:29] LABS: BASOPHILS % (AUTO) 0.4 % (0-1); EOSINOPHILS # (AUTO) 0.3 X10'3 (0-0.9); EOSINOPHILS % (AUTO) 3.9 % (0-6); HEMOGLOBIN 14.9 g/dl (14.0-17.9); LYMPHOCYTES # (AUTO) 1.7 X10'3 (1.1-4.8); LYMPHOCYTES % (AUTO) 21.7 % (21-51); MEAN CORPUSCULAR HEMOGLOBIN 29.5 PG (27.0-31.0); MEAN CORPUSCULAR HGB CONC 33.8 g/dL (33.0-36.5); MEAN CORPUSCULAR VOLUME 87.4 FL (78-98); MEAN PLATELET VOLUME 8.6 FL (7.4-10.4); MONOCYTES # (AUTO) 0.8 X10'3 (0-0.9); MONOCYTES % (AUTO) 9.9 % (2-12); NEUTROPHILS % (AUTO) 64.1 % (42-75); PLATELET COUNT 213 X10'3 (140-440); RED BLOOD COUNT 5.03 X10'6 (4.70-6.10); RED CELL DISTRIBUTION WIDTH 13.4 % (11.5-14.5); WHITE BLOOD COUNT 7.8 X10'3 (4.5-11.0)
[2019-08-12] MEDS: LORazepam 1 MG tablet PO PRN ×2 (12:03→19:23)
--- NOTE | 2019-08-12 16:00 | NUR ---
Nursing Progress Note: Scotty Legal hold: 5270 Client on involuntary status for GD Report received from nurse with use of SBAR: LUIS FERNANDO Germain Why are they here: Pt presents to the ER with psychosis and is a poor historian. He reports constant A/VH which are bothersome to him. Pt states that he is "Messed in the head." He has poor insight and is unable to recall short term memory AEB not remembering why he stopped taking medications on 07/15, and why he left the [facility] without returning on the . Pt. also reports S/I with a plan to cut himself. Assessment: What has happened this shift: Assumed care of client at 0630 hours this am. Client was in bed to begin the shift. Compliant with medications and assessment. Declined laxatives this am as well as Nicotine patch. No somatic complaints voiced upon assessment. Client is appropriate for unit and is social with staff as well as select peers. At 1200 hours, client approached publications writer to request Ativan for agitation. Client was medicated per orders with good effect obtained. Client has been visible on the unit and social with staff and peers. No behavioral issues as of this writing (1438 hours). New orders for medications were obtained today. Please reference EMR to note changes to Clozaril administration. At 1600 hours, this client was in bed and resting with eyes closed. Respirations even, unlabored. No s/s of distress or problems noted. S/I, H/I: Denies A/VH: denies but sates that he feels a black shadow following him. Sleep: 6.5 hours last shift. ADL's: Independent Group attendance: Were meds taken: Yes Any med S/E: None reported nor observed Mental Status Exam Appearance: Wearing personal clothing and white socks, no shoes Eye contact: Direct Behavior: Cooperative Speech: Clear Mood: euthymic but anxious at times. Affect: Congruent with mood Thought process: Linear Thought Content: feeling anxious Cognition: A&O X3 Insight: Poor Judgment: Poor to fair Interventions PRN's used: Therapeutic interventions: Ensured contract for safety, provided clear and simple instructions, reoriented to reality, monitored behaviors and need for intervention, minimized environmental stimulation, and maintained Q 15 min safety checks. Restraints/seclusion/emergency medication: N/A Justification of Continued Inpatient Treatment: Pt. requires interruption of current crisis, medication adjustments, and a safe and supportive environment. Currently seeking placement; most recently referred to [facility] team.
[2019-08-12 20:00] VITALS: BP 126/77
[2019-08-12] MEDS: clozapine 100mg tablet PO SCH (20:59)
[2019-08-12] MEDS: NICOTINE POLACRILEX 2 MG LOZENGE BC PRN (21:04)
--- NOTE | 2019-08-12 23:58 | NUR ---
Nursing Progress Note: Scotty Legal hold: 5270 Client on involuntary status for GD Report received from nurse with use of SBAR: LUIS FERNANDO Martinez Why are they here: Pt presents to the ER with psychosis and is a poor historian. He reports constant A/VH which are bothersome to him. Pt states that he is "Messed in the head." He has poor insight and is unable to recall short term memory AEB not remembering why he stopped taking medications on 07/15, and why he left the [facility] without returning on the . Pt. also reports S/I with a plan to cut himself. Assessment: What has happened this shift: Pt was walking down the isles during shift change, talking to himself and seemed to be responding to internal stimuli, making delusional statements and different gestures with his hands. When asked who he was talking to, he just smiled and stated he was just talking to himself. At 1920 pt requested an Ativan which was given. Patient sated he had a good day and attended several groups meetings. Patient was cooperative, friendly and smiling, interacting appropriately with other peers. During 1:1 physical assessment, patient denies any S/I or AV/H. Pt was also compliant with all of his PM medications. Pt spend a good amount of time watching TV and requested a Nicotine Lozenge. pt slept most of the night. S/I, H/I: Denies A/VH: denies but seems to be internally occupied Sleep: See sleep assessment ADL's: Independent Group attendance: None during shift change Were meds taken: Yes Any med S/E: None reported nor observed Mental Status Exam Appearance: Wearing personal clothing and white socks, no shoes Eye contact: Direct Behavior: Cooperative, animated Speech: Clear Mood: euthymic but anxious at times. Affect: Congruent with mood Thought process: Linear Thought Content: feeling anxious Cognition: A&O X3 Insight: Poor Judgment: Poor to fair Interventions PRN's used: Nicotine lozenge, Ativan Therapeutic interventions: Ensured contract for safety, provided clear and simple instructions, reoriented to reality, monitored behaviors and need for intervention, minimized environmental stimulation, and maintained Q 15 min safety checks. Restraints/seclusion/emergency medication: N/A Justification of Continued Inpatient Treatment: Pt. requires interruption of current crisis, medication adjustments, and a safe and supportive environment. Currently seeking placement; most recently referred to [facility] team.
[2019-08-13 07:12] VITALS: BP 113/57
[2019-08-13] MEDS: nicotine 21mg patch - 24 hr TD SCH (07:18)
[2019-08-13] MEDS: ATOMOXETINE 40 MG PO SCH (07:19)
[2019-08-13] MEDS: BUPROPRION 100 MG PO SCH ×2 (07:20→11:41)
[2019-08-13] MEDS: docusate sod 100mg capsule PO SCH ×2 (07:20→20:03)
[2019-08-13] MEDS: CARIPRAZINE 1.5 MG CAPSULE PO SCH (07:20)
[2019-08-13] MEDS: sertraline 50mg tablet PO SCH (07:21)
[2019-08-13] MEDS: sennosides 8.6mg tablet PO SCH ×2 (07:21→20:03)
[2019-08-13] MEDS: clozapine 25mg tablet PO SCH ×3 (07:26→13:28)
[2019-08-13] MEDS: LORazepam 1 MG tablet PO PRN (12:40)
[2019-08-13] MEDS: OLANZapine 5mg rapidly disint. tablet PO PRN (12:40)
--- NOTE | 2019-08-13 15:07 | NUR ---
Nursing Progress Note: Scotty Legal hold: 5270 Client on involuntary status for GD Report received from nurse with use of SBAR: LUIS FERNANDO Patrick Why are they here: Pt presents to the ER with psychosis and is a poor historian. He reports constant A/VH which are bothersome to him. Pt states that he is "Messed in the head." He has poor insight and is unable to recall short term memory AEB not remembering why he stopped taking medications on 07/15, and why he left the [facility] without returning on the . Pt. also reports S/I with a plan to cut himself. Assessment: What has happened this shift: Client in bed to begin the shift, Compliant with assessment and medications this am. This client denies somatic concerns and contracted verbally for safe unit behaviors and will summon staff if he feels unable to control impulses to harm himself. Client has been visible and social on the unit with no behavioral issues as of this writing (1146 hours). At 1243 hours, client asked for, "something real strong" as he was having trouble with voices in his head. Client was given Zydis 5 mg and Ativan 1 mg po per orders with desired effect obtained. Client is currently resting in his room (1338 hours). Client has been resting since 1338 hours in his room(now 1504 hours). No signs or symptoms of distress or problems at this time. S/I, H/I: Denies A/VH: denies but seems to be internally pre-occupied. Sleep: refer to sleep assessment ADL's: Independent Group attendance: yes Were meds taken: Yes Any med S/E: None reported nor observed Mental Status Exam Appearance: Wearing personal clothing and white socks, no shoes Eye contact: Direct Behavior: Cooperative, animated Speech: Clear Mood: euthymic but anxious at times. Affect: Congruent with mood Thought process: Linear Thought Content: feeling anxious Cognition: A&O X3 Insight: Poor Judgment: Poor to fair Interventions PRN's used: Therapeutic interventions: Ensured contract for safety, provided clear and simple instructions, reoriented to reality, monitored behaviors and need for intervention, minimized environmental stimulation, and maintained Q 15 min safety checks. Restraints/seclusion/emergency medication: N/A Justification of Continued Inpatient Treatment: Pt. requires interruption of current crisis, medication adjustments, and a safe and supportive environment. Currently seeking placement; most recently referred to [facility] team.
[2019-08-13] MEDS: NICOTINE POLACRILEX 2 MG LOZENGE BC PRN (19:12)
[2019-08-13 19:48] VITALS: BP 129/84
[2019-08-13] MEDS: clozapine 100mg tablet PO SCH (20:03)
--- NOTE | 2019-08-13 22:00 | NUR ---
Nursing Progress Note: Legal hold: 5270 Client on involuntary status for GD Report received from nurse with use of SBAR: LUIS FERNANDO Martinez Why are they here: Pt presents to the ER with psychosis and is a poor historian. He reports constant A/VH which are bothersome to him. Pt states that he is "Messed in the head." He has poor insight and is unable to recall short term memory AEB not remembering why he stopped taking medications on 07/15, and why he left the [facility] without returning on the . Pt. also reports S/I with a plan to cut himself. Assessment: What has happened this shift: Pt was in bed at change of shift, laying on his side resting w/his eyes open. Pt reports having a good day, denies s/i, pt is smiling and pleasant for the duration of the shift. States his mood is good. Pt requested a nicotine lozenge. Pt spent evening watching movies in the group room before going to bed. S/I, H/I: Denies A/VH: denies but seems to be internally pre-occupied. Sleep: refer to sleep assessment ADL's: Independent Group attendance: yes Were meds taken: Yes Any med S/E: None reported nor observed Mental Status Exam Appearance: Wearing personal clothing and white socks, no shoes Eye contact: Direct Behavior: Cooperative, animated Speech: Clear Mood: euthymic but anxious at times. Affect: Congruent with mood Thought process: Linear Thought Content: feeling anxious Cognition: A&O X3 Insight: Poor Judgment: Poor to fair Interventions PRN's used: Therapeutic interventions: Ensured contract for safety, provided clear and simple instructions, reoriented to reality, monitored behaviors and need for intervention, minimized environmental stimulation, and maintained Q 15 min safety checks. Restraints/seclusion/emergency medication: N/A Justification of Continued Inpatient Treatment: Pt. requires interruption of current crisis, medication adjustments, and a safe and supportive environment. Currently seeking placement; most recently referred to [facility] team.
[2019-08-14 08:00] VITALS: BP 120/73
[2019-08-14] MEDS ORDERED: clozapine 100mg tablet PO SCH (08:00)
[2019-08-14] MEDS: nicotine 21mg patch - 24 hr TD SCH (08:18)
[2019-08-14] MEDS: CARIPRAZINE 1.5 MG CAPSULE PO SCH (08:19)
[2019-08-14] MEDS: sertraline 50mg tablet PO SCH (08:19)
[2019-08-14] MEDS: buPROPion SR 100mg tab PO SCH ×2 (08:19→12:07)
[2019-08-14] MEDS: docusate sod 100mg capsule PO SCH ×2 (08:19→20:22)
[2019-08-14] MEDS: sennosides 8.6mg tablet PO SCH ×2 (08:19→20:22)
[2019-08-14] MEDS: clozapine 25mg tablet PO SCH ×2 (08:20→12:32)
[2019-08-14] MEDS: ATOMOXETINE 40 MG PO SCH (08:59)
[2019-08-14] MEDS ORDERED: NICOTINE POLACRILEX 2 MG LOZENGE BC PRN (10:05)
[2019-08-14] MEDS: NICOTINE POLACRILEX 2 MG LOZENGE BC PRN (12:08)
--- NOTE | 2019-08-14 16:10 | NUR ---
Nursing Progress Note: Scotty Legal hold: 5270 Client on involuntary status for GD Report received from nurse with use of SBAR: LUIS FERNANDO Patrick Why are they here: Pt presents to the ER with psychosis and is a poor historian. He reports constant A/VH which are bothersome to him. Pt states that he is "Messed in the head." He has poor insight and is unable to recall short term memory AEB not remembering why he stopped taking medications on 07/15, and why he left the [facility]] without returning on the . Pt. also reports S/I with a plan to cut himself. Assessment: What has happened this shift: Patient was asleep at change of shift and up for breakfast. Patient is smiling and very social. Patient denies suicidal ideation and denies hearing voices but possibly responding to internal stimuli. Patient went to morning group and slept through afternoon group. Patient smiles when spoken to. No distress observed. S/I, H/I: Denies A/VH: denies but possibly responding to internal stimuli Sleep: afternoon nap ADL's: Independent Group attendance: morning Were meds taken: Yes Any med S/E: None reported nor observed Mental Status Exam Appearance: Wearing personal clothing and white socks, no shoes Eye contact: Direct Behavior: Cooperative, animated Speech: Clear Mood: euthymic Affect: Congruent with mood Thought process: Linear Thought Content: anxious about discharge Cognition: A&O X3 Insight: Poor Judgment: Poor to fair Interventions PRN's used: Therapeutic interventions: Ensured contract for safety, provided clear and simple instructions, reoriented to reality, monitored behaviors and need for intervention, minimized environmental stimulation, and maintained Q 15 min safety checks. Restraints/seclusion/emergency medication: N/A Justification of Continued Inpatient Treatment: Pt. requires interruption of current crisis, medication adjustments, and a safe and supportive environment. Currently seeking placement; most recently referred to [facility] team.
[2019-08-14 20:07] VITALS: BP 116/80
[2019-08-14] MEDS: clozapine 100mg tablet PO SCH (21:17)
--- NOTE | 2019-08-14 23:11 | NUR ---
Nursing Progress Note: Scotty Legal hold: 5270 Client on involuntary status for GD Report received from nurse with use of SBAR: LUIS FERNANDO Martinez Why are they here: Pt presents to the ER with psychosis and is a poor historian. He reports constant A/VH which are bothersome to him. Pt states that he is "Messed in the head." He has poor insight and is unable to recall short term memory AEB not remembering why he stopped taking medications on 07/15, and why he left the [facility] without returning on the . Pt. also reports S/I with a plan to cut himself. Assessment: What has happened this shift: Patient was sitting in a chair in the hallway at change of shift. Pt was observed talking to himself, but denies a/vh. Pt was smiling and happy, making jokes. He reports being in a good mood. Pts appetite is good, sleeping well at night. S/I, H/I: Denies A/VH: denies but possibly responding to internal stimuli Sleep: afternoon nap ADL's: Independent Group attendance: morning Were meds taken: Yes Any med S/E: None reported nor observed Mental Status Exam Appearance: Wearing personal clothing and white socks, no shoes Eye contact: Direct Behavior: Cooperative, animated Speech: Clear Mood: euthymic Affect: Congruent with mood Thought process: Linear Thought Content: anxious about discharge Cognition: A&O X3 Insight: Poor Judgment: Poor to fair Interventions PRN's used: Therapeutic interventions: Ensured contract for safety, provided clear and simple instructions, reoriented to reality, monitored behaviors and need for intervention, minimized environmental stimulation, and maintained Q 15 min safety checks. Restraints/seclusion/emergency medication: N/A Justification of Continued Inpatient Treatment: Pt. requires interruption of current crisis, medication adjustments, and a safe and supportive environment. Currently seeking placement; most recently referred to [facility] team.
[2019-08-15 07:48] VITALS: BP 113/76
[2019-08-15] MEDS: nicotine 21mg patch - 24 hr TD SCH (08:00)
[2019-08-15] MEDS: sennosides 8.6mg tablet PO SCH ×2 (08:20→20:23)
[2019-08-15] MEDS: docusate sod 100mg capsule PO SCH ×2 (08:20→20:23)
[2019-08-15] MEDS: sertraline 50mg tablet PO SCH (08:20)
[2019-08-15] MEDS: buPROPion SR 100mg tab PO SCH ×2 (08:21→13:12)
[2019-08-15] MEDS: clozapine 25mg tablet PO SCH ×2 (08:21→13:12)
[2019-08-15] MEDS: ATOMOXETINE 40 MG PO SCH (08:21)
[2019-08-15] MEDS: CARIPRAZINE 1.5 MG CAPSULE PO SCH (09:25)
--- NOTE | 2019-08-15 10:15 | NUR ---
Discharge Planning: Presenting Issues: Pt's 5250 will on 09/04/19, pt needs dcp & linkages to intensive outpt MH services as he has no social support @ this time and will not be able to manage his own meds outside of the hospital setting. Interventions: Continuity of Care SS had t/c w/Gina Meneses, [facility]-Web Marketing Intern, left requesting rt p/c to coordinate f/u care and pt's access to [facility] services upon d/c. Plan: will continue to engage [facility] in dcp activities to facilitate Continuity of Care for pt upon d/c. Shirin Carlos LCSW Addendum: 08/15/19 at 1020 by Shirin Carlos Amended: Links added.
--- NOTE | 2019-08-15 13:11 | NUR ---
Discharge Planning: SS received t/c from Gina [facility] Couples Therapist & engaged her in dcp activities for pt. Per t/c Gina will consult /[facility] ACCESS clinicians and determine when & who will see pt upon his d/c from [facility]. Gina will let SS know when ACCESS provides her an appointment for pt. Plan: SS will continue to engage [facility] in dcp activities. Shirin Carlos LCSW Addendum: 08/15/19 at 1335 by Shirin Carlos Amended: Links added.
[2019-08-15] MEDS: NICOTINE POLACRILEX 2 MG LOZENGE BC PRN (17:19)
--- NOTE | 2019-08-15 17:28 | NUR ---
Nursing Progress Note: Scotty Legal hold: 5270 Client on involuntary status for GD Report received from nurse with use of SBAR: Yolanda RN Why are they here: Pt presents to the ER with psychosis and is a poor historian. He reports constant A/VH which are bothersome to him. Pt states that he is "Messed in the head." He has poor insight and is unable to recall short term memory AEB not remembering why he stopped taking medications on 07/15, and why he left the [facility] without returning on the . Pt. also reports S/I with a plan to cut himself. Assessment: What has happened this shift: Patient sleeping most of the morning. He is compliant with medication administration. When asked what he was thinking about today, he stated "I don't know". Pt. appears happy, is eating regularly, regular BM's, taking medications. Another RN brought him in a pair of tennis shoes, which patient is very pleased with. S/I, H/I: Denies A/VH: denies Sleep: 5.75 hrs at [facility]. ADL's: Independent Group attendance: morning Were meds taken: Yes Any med S/E: None reported nor observed Mental Status Exam Appearance: Wearing personal clothing and white socks, with new Herberte's Eye contact: Direct Behavior: Cooperative, animated Speech: Clear Mood: euthymic Affect: Congruent with mood Thought process: Linear, circumstantial. Thought Content: Basic needs. Cognition: A&O X3 Insight: Poor Judgment: Poor to fair Interventions PRN's used: Therapeutic interventions: Ensured contract for safety, provided clear and simple instructions, reoriented to reality, monitored behaviors and need for intervention, minimized environmental stimulation, and maintained Q 15 min safety checks. Restraints/seclusion/emergency medication: N/A Justification of Continued Inpatient Treatment: Pt. requires interruption of current crisis, medication adjustments, and a safe and supportive environment. Currently seeking placement; most recently referred to [facility] team.
[2019-08-15 19:30] VITALS: BP 123/80
[2019-08-15] MEDS: clozapine 100mg tablet PO SCH (20:23)
--- NOTE | 2019-08-16 01:03 | NUR ---
Nursing Progress Note: Scotty Legal hold: 5270 Client on involuntary status for GD Report received from nurse with use of SBAR: LUIS EFRNANDO Martinez Why are they here: Pt presents to the ER with psychosis and is a poor historian. He reports constant A/VH which are bothersome to him. Pt states that he is "Messed in the head." He has poor insight and is unable to recall short term memory AEB not remembering why he stopped taking medications on 07/15, and why he left the [facility] without returning on the . Pt. also reports S/I with a plan to cut himself. Assessment: What has happened this shift: Patient was lying in bed at change of shift, saying he was "relaxing." pt appeared to be in a good mood and was cooperative for 1:1, denying feeling si/hi. pt attended snack and charged his ankle bracelet before going to bed. S/I, H/I: Denies A/VH: denies Sleep: asleep now ADL's: Independent Group attendance: snack Were meds taken: Yes Any med S/E: None reported nor observed Mental Status Exam Appearance: Wearing personal clothing and white socks, no shoes Eye contact: Direct Behavior: Cooperative, friendly Speech: Clear Mood: euthymic Affect: Congruent with mood Thought process: Linear Thought Content: anxious about discharge Cognition: A&O X3 Insight: Poor Judgment: Poor to fair Interventions PRN's used: none Therapeutic interventions: Ensured contract for safety, provided clear and simple instructions, reoriented to reality, monitored behaviors and need for intervention, minimized environmental stimulation, and maintained Q 15 min safety checks. Restraints/seclusion/emergency medication: N/A Justification of Continued Inpatient Treatment: Pt. requires interruption of current crisis, medication adjustments, and a safe and supportive environment. Currently seeking placement; most recently referred to [facility] team.
[2019-08-16 07:00] VITALS: BP 108/64
[2019-08-16] MEDS: nicotine 21mg patch - 24 hr TD SCH (08:00)
[2019-08-16] MEDS ORDERED: CARIPRAZINE 1.5 MG CAPSULE PO SCH (08:00)
[2019-08-16] MEDS: sennosides 8.6mg tablet PO SCH ×2 (08:11→20:06)
[2019-08-16] MEDS: buPROPion SR 100mg tab PO SCH ×2 (08:11→13:37)
[2019-08-16] MEDS: CARIPRAZINE 1.5 MG CAPSULE PO SCH (08:11)
[2019-08-16] MEDS: sertraline 50mg tablet PO SCH (08:12)
[2019-08-16] MEDS: clozapine 25mg tablet PO SCH ×2 (08:12→12:30)
[2019-08-16] MEDS: docusate sod 100mg capsule PO SCH ×2 (08:12→20:06)
[2019-08-16] MEDS: ATOMOXETINE 40 MG PO SCH (08:30)
[2019-08-16] MEDS: NICOTINE POLACRILEX 2 MG LOZENGE BC PRN ×3 (13:37→20:10)
--- NOTE | 2019-08-16 16:33 | NUR ---
Group Art Therapy (Continued): Patient was able to select an affirmation, and discuss its relevance to his life. Patient was also able to contribute to the group affirmation mural/collage. He wrote: "I am strong". Patient was also able to assist in small tasks having been part of the group process for several sessions. Ivory Gerardo MA (Alena Marie) Licensed Marriage, Family Therapist #[id number] [facility] Art Therapist Addendum: 08/16/19 at 1636 by Ivory Gerardo SS Amended: Links added.
--- NOTE | 2019-08-16 18:24 | NUR ---
Nursing Progress Note: Legal hold: 5270 Client on involuntary status for GD Report received from nurse with use of SBAR: Yolanda RN Why are they here: Pt presents to the ER with psychosis and is a poor historian. He reports constant A/VH which are bothersome to him. Pt states that he is "Messed in the head." He has poor insight and is unable to recall short term memory AEB not remembering why he stopped taking medications on 07/15, and why he left the [facility] without returning on the . Pt. also reports S/I with a plan to cut himself. Assessment: What has happened this shift: Patient sleeping most of the morning. He is compliant with medication administration. When asked what he was thinking about today, he stated "I don't know". Pt. appears happy, is eating regularly, regular BM's, taking medications. Another RN brought him in a pair of tennis shoes, which patient is very pleased with. S/I, H/I: Denies A/VH: denies Sleep: 5.75 hrs at [facility]. ADL's: Independent Group attendance: morning Were meds taken: Yes Any med S/E: None reported nor observed Mental Status Exam Appearance: Wearing personal clothing and white socks, with new Nike's Eye contact: Direct Behavior: Cooperative, animated Speech: Clear Mood: euthymic Affect: Congruent with mood Thought process: Linear, circumstantial. Thought Content: Basic needs. Cognition: A&O X3 Insight: Poor Judgment: Poor to fair Interventions PRN's used: Therapeutic interventions: Ensured contract for safety, provided clear and simple instructions, reoriented to reality, monitored behaviors and need for intervention, minimized environmental stimulation, and maintained Q 15 min safety checks. Restraints/seclusion/emergency medication: N/A Justification of Continued Inpatient Treatment: Pt. requires interruption of current crisis, medication adjustments, and a safe and supportive environment. Currently seeking placement; most recently referred to [facility] team.
[2019-08-16] MEDS: clozapine 100mg tablet PO SCH (20:06)
[2019-08-16] MEDS: LORazepam 1 MG tablet PO PRN (20:10)
[2019-08-16 20:37] VITALS: BP 139/87
--- NOTE | 2019-08-16 20:46 | NUR ---
Nursing Progress Note Legal hold:5250 Client on voluntary/involuntary status for being gravely disabled Report received from Swati GOULD with use of SBAR Why are they here: The patient was admitted on 07/09/19 after he was found to be gravely disabled. He was noncompliant with psychiatric treatment. He became acutely psychotic and was unable to care for himself Assessment What has happened this shift: The patient has been observed up in the hallway laughing and having conversations with people who are not there. He was friendly and cooperative with the evening assessment. His personal living space in his room was in total disarray. He appeared disheveled and admitted he had not showered in several days. He gave poor eye contact and appeared distracted by internal stimuli. He denies that he is hearing voices or having visual hallucinations but clearly he is responding to psychotic symptoms. S/I, H/I: The patient denies A/VH: The patient denies but clearly appears to be responding to internal stimuli Sleep: ADL's: Neglected and needs prompting for ADLs Group attendance: Were meds taken: Yes Any med S/E The patient is having tachycardia from the Clozaril and his HR was 117. Mental Status Exam Appearance: Dressed appropriately but appears unbathed with greasy hair. Eye contact: intermittent but poor during the evening assessment Behavior: Frequent pacing up and down the jama and appears restless. He has a large smile on his face and he is constantly talking to himself Speech: Spontaneous Mood: Reports his mood was "Okay" but later asked for ativan Affect: Bright affect Thought process: [place]. Psychosis causing some disorganization and lack of follow through. He gives minimal and vague responses to questions but his replies do correspond with what his being asked. Thought Content: Wants to get on SSI but has not asked social work to help him. Psychotic symptoms. Cognition: Alert and oriented Insight:Poor Judgment: Poor Interventions PRN's used: Nicotine lozenge and ativan. Therapeutic interventions: One to one with the patient to assess severity of disordered thought processes. He was prompted for hygiene. Discussed the patient's discharge plan with him and assess for grave disability. Restraints/seclusion/emergency medication: Justification of Continued Inpatient Treatment: Per the provider notes the patient is having medication changes. Discharge planning is still being put in place. The patient presents as gravely disabled. He is barely maintaining himself here on the unit. He is not attending to his ADLs and he is unable to state fully what medications he takes. It is extremely difficult to believe the patient would be able to maintain at the [facility] even with intensive case management trough the [facility] team at this time.
[2019-08-17] MEDS: nicotine 21mg patch - 24 hr TD SCH (07:21)
[2019-08-17] MEDS: buPROPion SR 100mg tab PO SCH ×2 (07:22→11:53)
[2019-08-17] MEDS: CARIPRAZINE 1.5 MG CAPSULE PO SCH (07:22)
[2019-08-17] MEDS: clozapine 25mg tablet PO SCH ×2 (07:22→11:53)
[2019-08-17] MEDS: ATOMOXETINE 40 MG PO SCH (07:22)
[2019-08-17] MEDS: sennosides 8.6mg tablet PO SCH ×2 (07:22→21:37)
[2019-08-17] MEDS: docusate sod 100mg capsule PO SCH ×2 (07:22→21:37)
[2019-08-17] MEDS: sertraline 50mg tablet PO SCH (07:22)
[2019-08-17 07:28] VITALS: BP 114/74
[2019-08-17] MEDS: LORazepam 1 MG tablet PO PRN ×2 (08:28→19:25)
[2019-08-17] MEDS: OLANZapine 5mg rapidly disint. tablet PO PRN (08:28)
[2019-08-17] MEDS: NICOTINE POLACRILEX 2 MG LOZENGE BC PRN ×3 (12:32→21:49)
--- NOTE | 2019-08-17 15:13 | NUR ---
Reassessment: Pt PO intake avg 100% on regular diet meeting needs. LBM 08/16 receiving bowel care. No nutrition concerns at this time. Will continue to monitor. Rec: 1. continue regular diet 2. routine bowel care 3. wt per rx Addendum: 08/17/19 at [address] Amended: Links added.
--- NOTE | 2019-08-17 15:34 | NUR ---
Nursing Progress Note Scotty Legal hold: 5250 Client on voluntary/involuntary status for being gravely disabled Report received from Yolanda GOULD with use of SBAR Why are they here: The patient was admitted on 07/09/19 after he was found to be gravely disabled. He was noncompliant with psychiatric treatment. He became acutely psychotic and was unable to care for himself Assessment: Client was awake and ambulating on the unit this am at shift change. Compliant with assessment and medications. Denied S/I or H/I. At about 0815 client was seated in the hallway. He jumped up suddenly and started running down the hallway. When questioned, he stated that he was, "hearing shit" and wanted PRN coverage. He was given Zydis and Ativan for agression as ordered with good effect noted. No further behavioral issues since PRN. Client has alternated between his room and the unit. His behaviors are appropriate for this unit.At 1530, client is visible on unit and interacting with select peers. His affect is bright and he is focused on discharge next week. S/I, H/I: The patient denies A/VH: The patient denies but clearly appears to be responding to internal stimuli Sleep: ADL's: Neglected and needs prompting for ADLs Group attendance: yes Were meds taken: Yes Any med S/E: Mental Status Exam: Appearance: Dressed appropriately Eye contact: direct Behavior: Frequent pacing as well as internal preoccupation Speech: Spontaneous Mood: "alright" Affect: Bright affect Thought process: [place]. Psychosis causing some disorganization and lack of follow through. He gives minimal and vague responses to questions but his replies do correspond with what his being asked. Thought Content: Wants to get on SSI but has not asked social work to help him. Psychotic symptoms. Cognition: Alert and oriented Insight:Poor Judgment: Poor Interventions: PRN's used: Ativan and Zyprexa Therapeutic interventions: One to one with the patient to assess severity of disordered thought processes. He was prompted for hygiene. Discussed the patient's discharge plan with him and assess for grave disability. Restraints/seclusion/emergency medication: Justification of Continued Inpatient Treatment: Per the provider notes the patient is having medication changes. Discharge planning is still being put in place. The patient presents as gravely disabled. He is barely maintaining himself here on the unit. He is not attending to his ADLs and he is unable to state fully what medications he takes. It is extremely difficult to believe the patient would be able to maintain at the [facility] even with intensive case management trough the [facility] team at this time.
[2019-08-17 20:23] VITALS: BP 112/73
[2019-08-17] MEDS: clozapine 100mg tablet PO SCH (21:38)
--- NOTE | 2019-08-18 00:11 | NUR ---
Nursing Progress Note Scotty Legal hold: 5250 Client on voluntary/involuntary status for being gravely disabled Report received from Dominique CARMEN with use of SBAR Why are they here: The patient was admitted on 07/09/19 after he was found to be gravely disabled. He was noncompliant with psychiatric treatment. He became acutely psychotic and was unable to care for himself Assessment: Pt was sitting in chair outside TV room during shift change. Smiling and appeared to be in a good mood. He stated that he had a good day and was looking forward to leaving here. Pt was having a conversation with himself but did not seem agitated. Pt later on requested an Ativan which was given. When asked to rate his anxiety, he stated that it goes back and forth. 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 Pt was cooperative during 1:1 physical assessment and took all his PM medications without any problems. Pt denies S/I or H/I and also denies hallucinations of any type. After spending some time in TV room watching TV, pt went to his bed and slept for most of the night. Nicotine patch was removed before pt went to sleep. 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 Were meds taken: Yes Any med S/E: none noted or observed Mental Status Exam: Appearance: Dressed appropriately wearing his own shoes and street clothing Eye contact: direct Behavior: Frequent pacing as well as internal preoccupation, cooperative Speech: Spontaneous Mood: "alright" Affect: Bright affect Thought process: Disorganized Thought Content: going to the mission and getting a job Cognition: Alert and oriented X3 Insight:Poor Judgment: Poor Interventions: PRN's used: Ativan and Nicotine Lozenge Therapeutic interventions: One to one with the patient to assess severity of disordered thought processes. He was prompted for hygiene. Discussed the patient's discharge plan with him and assess for grave disability. Restraints/seclusion/emergency medication: Justification of Continued Inpatient Treatment: Per the provider notes the patient is having medication changes. Discharge planning is still being put in place. The patient presents as gravely disabled. He is barely maintaining himself here on the unit. He is not attending to his ADLs and he is unable to state fully what medications he takes. It is extremely difficult to believe the patient would be able to maintain at the [facility] even with intensive case management trough the [facility] team at this time.
[2019-08-18 07:30] VITALS: BP 118/63
[2019-08-18] MEDS: clozapine 25mg tablet PO SCH ×3 (07:30→20:39)
[2019-08-18] MEDS: CARIPRAZINE 1.5 MG CAPSULE PO SCH (08:29)
[2019-08-18] MEDS: sennosides 8.6mg tablet PO SCH ×2 (08:29→20:36)
[2019-08-18] MEDS: docusate sod 100mg capsule PO SCH ×2 (08:29→20:36)
[2019-08-18] MEDS: sertraline 50mg tablet PO SCH (08:30)
[2019-08-18] MEDS: ATOMOXETINE HCL 40 MG CAPSULE PO SCH (08:31)
[2019-08-18] MEDS: nicotine 21mg patch - 24 hr TD SCH (08:31)
--- NOTE | 2019-08-18 11:37 | NUR ---
Discharge Planning Presenting Issues: Pt is scheduled to d/c on 08/24/19, need appointments @ [facility]. Interventions: TYE SS had t/c with [facility] Lightout Examiner-Yuli, per t/c pt is scheduled to see a Mental Health skoog patching machine operator on 08/24/19 @ 9:00 AM. Plan: SS will coordinate d/c transportation w/[facility] office on 08/23. Shirin Carlos LCSW Addendum: 08/18/19 at 1150 by Shirin BEAN Amended: Links added.
[2019-08-18] MEDS: NICOTINE POLACRILEX 2 MG LOZENGE BC PRN ×2 (16:12→20:42)
[2019-08-18] MEDS: OLANZapine 5mg rapidly disint. tablet PO PRN (16:17)
--- NOTE | 2019-08-18 17:00 | NUR ---
Nursing Progress Note Legal hold: 5250 Client on voluntary/involuntary status for being gravely disabled Report received from Avril CARMEN with use of SBAR Why are they here: Pt presents to the ER with psychosis and is a poor historian. He reports constant A/VH which are bothersome to him. Pt states that he is "Messed in the head." He has poor insight and is unable to recall short term memory AEB not remembering why he stopped taking medications on 07/15, and why he left the [facility] without returning on the . Pt. also reports S/I with a plan to cut himself. Assessment: Pt. asleep at start of shift. Pt. awake for breakfast and ate all meals in community room. Pt. took all medications. 1:1 done at bedside. Pt. denies SI/HI, A/V Hallucinations. Pt. seen socializing appropriately with other patients and staff. Pt. given Zyprexa prn after seen boxing the air and getting excited. S/I, H/I: Denies A/VH: The patient denies but appears to be responding to internal stimuli Sleep: Pt. did not nap on day shift. 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 He was prompted for hygiene. Discussed the patient's discharge plan with him and assess for grave disability. Restraints/seclusion/emergency medication: Justification of Continued Inpatient Treatment: Per the provider notes the patient is having medication changes. Discharge planning is still being put in place. The patient presents as gravely disabled. He is actively responding to internal stimuli. And needs prompting for ADLs.
[2019-08-18] MEDS: acetaminophen 325mg tablet PO PRN (18:57)
[2019-08-18 20:00] VITALS: BP 116/70
[2019-08-18] MEDS: clozapine 100mg tablet PO SCH (20:37)
--- NOTE | 2019-08-18 23:14 | NUR ---
Nursing Progress Note Legal hold:5250 Client on voluntary/involuntary status for being gravely disabled Report received from KERMIT Fox with use of SBAR Why are they here: The patient was admitted on 07/09/19 after he was found to be gravely disabled. He was noncompliant with psychiatric treatment. He became acutely psychotic and was unable to care for himself Assessment What has happened this shift: Pt was in his room during shift change and then later came out to ask for some Tylenol and nicotine Lozenge. He stated that he had a headache that had started after dinner. Both of these PRN meds were given with good effect. Pt was cooperative during 1:1 physical assessment and took all his PM meds without any issues. Pt denies A/H but he states "just seeing things. Its like these dark shadows that follow me and tap me sometimes. It doesn't scare me, just freaks me out." Pt did take a shower today and his laundry was washed. Pt also requested to have his toe nails clipped. Pt states that he has a plan to get his medications thru [facility] when he gets out. at 2200 pt retired to his room and slept for most of the night. 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 Mental Status Exam Appearance: Dressed appropriately in his personal street clothing, showered today Eye contact: Fair Behavior: appears restless, cooperative, laughs inappropriately Speech: Spontaneous Mood: feeling down Affect: congruent with mood Thought process: [place] Thought Content: What he plans to do when he gets d/c Cognition: Alert and oriented Insight:Poor Judgment: Poor Interventions PRN's used: Nicotine lozenge, Tylenol Therapeutic interventions: One to one with the patient to assess severity of disordered thought processes. He was prompted for hygiene. Discussed the patient's discharge plan with him and assess for grave disability. Restraints/seclusion/emergency medication: Justification of Continued Inpatient Treatment: Per the provider notes the patient is having medication changes. Discharge planning is still being put in place. The patient presents as gravely disabled. He is barely maintaining himself here on the unit. He is not attending to his ADLs and he is unable to state fully what medications he takes. It is extremely difficult to believe the patient would be able to maintain at the [facility] even with intensive case management trough the [facility] team at this time.
[2019-08-19 07:33] VITALS: BP 137/85
[2019-08-19] MEDS: nicotine 21mg patch - 24 hr TD SCH (08:00)
[2019-08-19] MEDS: docusate sod 100mg capsule PO SCH ×2 (08:07→20:47)
[2019-08-19] MEDS: ATOMOXETINE HCL 40 MG CAPSULE PO SCH (08:08)
[2019-08-19] MEDS: sertraline 50mg tablet PO SCH (08:08)
[2019-08-19] MEDS: clozapine 25mg tablet PO SCH ×3 (08:09→20:46)
[2019-08-19] MEDS: sennosides 8.6mg tablet PO SCH ×2 (08:09→20:47)
[2019-08-19] MEDS: NICOTINE POLACRILEX 2 MG LOZENGE BC PRN ×3 (13:08→21:08)
[2019-08-19] MEDS: LORazepam 1 MG tablet PO PRN (13:08)
[2019-08-19] MEDS: OLANZapine 5mg rapidly disint. tablet PO PRN (14:56)
--- NOTE | 2019-08-19 17:15 | NUR ---
Nursing Progress Note: Legal hold: 5270 Client on involuntary status for GD Report received from nurse with use of SBAR: Avril Mueller RN Why are they here: Pt presents to the ER with psychosis and is a poor historian. He reports constant A/VH which are bothersome to him. Pt states that he is "Messed in the head." He has poor insight and is unable to recall short term memory AEB not remembering why he stopped taking medications on 07/15, and why he left the [facility] without returning on the . Pt. also reports S/I with a plan to cut himself. Assessment What has happened this shift: Pt. asleep at start of shift. Pt. awake for medications and ate all meals in community room. Pt. denies SI/HI, A/V hallucinations. Pt. anxious and pacing the halls at time but cooperative. Pt. became hyper in afternoon and agitated and given Zyprexa 5mg po and Ativan 1mg po with good effect. S/I, H/I: Denies A/VH: Not now Sleep: Pt. did not nap. ADL's: Independent Group attendance: Yes Were meds taken: Yes Any med S/E: None reported nor observed Mental Status Exam Appearance: Wearing personal clothing and white socks, no shoes Eye contact: Direct Behavior: Cooperative Speech: Clear Mood: euthymic but anxious at times. Affect: Congruent with mood Thought process: Linear Thought Content: Food Cognition: A&O X3 Insight: Poor Judgment: Poor to fair Interventions PRN's used: Zyprexa and Ativan Therapeutic interventions: Ensured contract for safety, provided clear and simple instructions, reoriented to reality, monitored behaviors and need for intervention, minimized environmental stimulation, and maintained Q 15 min safety checks. Restraints/seclusion/emergency medication: N/A Justification of Continued Inpatient Treatment: Pt. requires interruption of current crisis, medication adjustments, and a safe and supportive environment. Currently seeking placement; most recently referred to [facility] team.
[2019-08-19 20:00] VITALS: BP 130/82
[2019-08-19] MEDS: clozapine 100mg tablet PO SCH (20:46)
--- NOTE | 2019-08-20 00:24 | NUR ---
Nursing Progress Note Legal hold:5250 Client on voluntary/involuntary status for being gravely disabled Report received from KERMIT Fox with use of SBAR Why are they here: The patient was admitted on 07/09/19 after he was found to be gravely disabled. He was noncompliant with psychiatric treatment. He became acutely psychotic and was unable to care for himself Assessment What has happened this shift: Pt was pacing the isles having a lot of delusional conversations with self during shift change. Pt was cooperative during 1:1 physical assessment and took all his medications without any problems. He appeared to be more internally occupied than previous days but when asked if he was feeling anxious he denied. Pt eventually quit pacing the isles and went to watch TV in the recreation area. He states that he sees and hears things. "I was just sitting there against the wall and I heard this noise. It didn't come out of the TV, it came out of the wall. I also see this dark cloud that just comes over me." pt pauses and appear to be looking at this cloud. Pt states that he is excited and ready to be discharged and talks about the mission, how he likes the food that is served here. Pt asked for a nicotine lozenge before going to sleep. 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 Mental Status Exam Appearance: Dressed appropriately in his personal street clothing Eye contact: Fair Behavior: manic, cooperative, laughs inappropriately Speech: Spontaneous Mood: great Affect: expansive Thought process: Circumstantial Thought Content: being discharged Cognition: Alert and oriented Insight:Poor Judgment: Poor Interventions PRN's used: Nicotine lozenge Therapeutic interventions: One to one with the patient to assess severity of disordered thought processes. He was prompted for hygiene. Discussed the patient's discharge plan with him and assess for grave disability. Restraints/seclusion/emergency medication: Justification of Continued Inpatient Treatment: Per the provider notes the patient is having medication changes. Discharge planning is still being put in place. The patient presents as gravely disabled. He is barely maintaining himself here on the unit. He is not attending to his ADLs and he is unable to state fully what medications he takes. It is extremely difficult to believe the patient would be able to maintain at the [facility] even with intensive case management trough the [facility] team at this time.
[2019-08-20 07:43] VITALS: BP 119/74
[2019-08-20] MEDS: ATOMOXETINE HCL 40 MG CAPSULE PO SCH (08:13)
[2019-08-20] MEDS: sertraline 50mg tablet PO SCH (08:13)
[2019-08-20] MEDS: sennosides 8.6mg tablet PO SCH ×2 (08:14→20:30)
[2019-08-20] MEDS: clozapine 25mg tablet PO SCH ×3 (08:14→20:30)
[2019-08-20] MEDS: docusate sod 100mg capsule PO SCH ×2 (08:14→20:30)
[2019-08-20] MEDS: nicotine 21mg patch - 24 hr TD SCH (08:18)
--- NOTE | 2019-08-20 15:44 | NUR ---
Nursing Progress Note: [place] Legal hold:5270 09/04/19 @ 1410 Client on voluntary/involuntary status for GD Report received from nurse with use of FRANK Miranda RN. Why are they here: On presentation to ED patient demonstrates psychosis, admits to both AH & VH. Making it difficult to interview. Admits hallucinations are bothersome to him, however he is cooperative and pleasant with a very poor attention span. Patient was placed on a 5150 for GD advisement completed. States he was locked out of the [facility] and stopped his medications due to this. Assessment What has happened this shift: Patient sleeping soundly at change of shift. Continues to demonstrate excessive tiredness. Out of bed for breakfast then immediately returned to room and was again sleeping. In group sitting near the front, smiling and observed as constantly moving with a big smile on his face. Denies hallucinations but appears to be responding to some internal stimuli. 1:1 assessment completed, compliant with medication administration. Interacts well with both staff and other patients on the unit. S/I, H/I: Denies, no s/s of depression A/VH: Denies but appears to be responding to internal stimuli Sleep: 7.50, sleeping a lot of the day. ADL's: Independent Group attendance: Yes Were meds taken: Yes Any med S/E None observed Mental Status Exam Appearance: disheveled, wearing green scrubs Eye contact: Direct Behavior: cooperative Speech: clear, normal rate/rhythm Mood:Euphoric, laughing, smiling, when asked about DC plan, states, I am going to live on the streets (while smiling) Affect: congruent with mood Thought process: [place] Thought Content: Discharge plan Cognition: A & O X 3 Insight: Poor Judgment: Poor Interventions PRN's used: None Therapeutic interventions: 1:1 therapeutic evaluation and supportive environment. Encouraged to participate in therapeutic group sessions. Administer required medications for psychiatric stabilization. Restraints/seclusion/emergency medication: NA Justification of Continued Inpatient Treatment: Patient continues to be gravely disabled without a plan to provide food, housing, or clothing. Remains pleasantly psychotic responding happlily to internal stimulus. Does not attend to personal ADLs without encouragement. Unable to identify why he takes medications, time and potential SE. Patient would be unable to maintain current level of stability without close observation.
[2019-08-20 19:28] VITALS: BP 138/96
[2019-08-20] MEDS: clozapine 100mg tablet PO SCH (20:31)
--- NOTE | 2019-08-20 23:43 | NUR ---
Nursing Progress Note: [place] Legal hold:5270 09/04/19 @ 1410 Client on voluntary/involuntary status for GD Report received from nurse with use of FRANK Martinez RN. Why are they here: On presentation to ED patient demonstrates psychosis, admits to both AH & VH. Making it difficult to interview. Admits hallucinations are bothersome to him, however he is cooperative and pleasant with a very poor attention span. Patient was placed on a 5150 for GD advisement completed. States he was locked out of the [facility] and stopped his medications due to this. Assessment What has happened this shift: Pt was pacing down the halls during shift change and appeared to be responding to internal stimuli even though he denies any A/H and V/H at this time. He appeared to be having a conversation with someone and mimics shooting a gun. Pt does not appear angry or agitated. Pt was cooperative during 1:1 physical assessment and took all his medications without any problems. Pt was interacting less than usual with this RN and responded to questions with a short answer. Denies any anxiety or depression. Spent some time in the recreation area watching TV before going to bed. S/I, H/I: Denies, no s/s of depression A/VH: Denies but appears to be responding to internal stimuli Sleep: see sleep assessment ADL's: Independent wt Group attendance: Yes Were meds taken: Yes Any med S/E None observed Mental Status Exam Appearance: disheveled, wearing personal clothing, greasy hair Eye contact: Direct Behavior: cooperative, smiling, guarded Speech: clear, normal rate/rhythm Mood: good Affect: congruent with mood Thought process: [place] Thought Content: delusional thinking Cognition: A & O X 3 Insight: Poor Judgment: Poor Interventions PRN's used: None Therapeutic interventions: 1:1 therapeutic evaluation and supportive environment. Encouraged to participate in therapeutic group sessions. Administer required medications for psychiatric stabilization. Restraints/seclusion/emergency medication: NA Justification of Continued Inpatient Treatment: Patient continues to be gravely disabled without a plan to provide food, housing, or clothing. Remains pleasantly psychotic responding happlily to internal stimulus. Does not attend to personal ADLs without encouragement. Unable to identify why he takes medications, time and potential SE. Patient would be unable to maintain current level of stability without close observation.
[2019-08-21] MEDS: sennosides 8.6mg tablet PO SCH ×2 (07:39→20:16)
[2019-08-21] MEDS: docusate sod 100mg capsule PO SCH ×2 (07:39→20:16)
[2019-08-21] MEDS: sertraline 50mg tablet PO SCH (07:39)
[2019-08-21] MEDS: clozapine 25mg tablet PO SCH ×3 (07:39→20:17)
[2019-08-21] MEDS: nicotine 21mg patch - 24 hr TD SCH (07:40)
[2019-08-21] MEDS: ATOMOXETINE HCL 40 MG CAPSULE PO SCH (07:53)
[2019-08-21 07:55] VITALS: BP 116/68
[2019-08-21] MEDS: NICOTINE POLACRILEX 2 MG LOZENGE BC PRN ×3 (12:23→18:42)
[2019-08-21] MEDS: OLANZapine 5mg rapidly disint. tablet PO PRN (16:57)
--- NOTE | 2019-08-21 17:22 | NUR ---
Nursing Progress Note: Legal hold: 5270 09/04/19 @ 1410 Client on involuntary status for GD Report received from LUIS FERNANDO Patrick with use of SBAR. Why are they here: On presentation to ED patient demonstrates psychosis, admits to both AH & VH. Making it difficult to interview. Admits hallucinations are bothersome to him, however he is cooperative and pleasant with a very poor attention span. Patient was placed on a 5150 for GD advisement completed. States he was locked out of the [facility] and stopped his medications due to this. Assessment What has happened this shift: Patient per usual gets up for breakfast and medications and expresses excessive fatigue in the mornings, then goes back to bed until after lunch. Once he wakes up, he is very animated on unit, joking and playing around. He continues to be pleasant with staff and peers. Patient this afternoon, requested prn, stating that he was anxious and fuzzy in the head. Zyprexa given with good effect. Patient spends much of his time worrying about discharge and finding housing. S/I, H/I: Denies. A/VH: Denies, but states he is fuzzy headed. Sleep: Slept until after lunch. ADL's: Independent Group attendance: No. Were meds taken: Yes Any med S/E None Mental Status Exam Appearance: Young disheveled male in green scrub top and shorts. Eye contact: Intermittent Behavior: Fatigue in the mornings, animated in the afternoon Speech: clear, soft, normal rate/rhythm Mood: Fatigue in a.m., with afternoon animation and brightening. Affect: congruent with mood Thought process: [place]. Circumstantial. Thought Content: Discharge plan Cognition: A & O X 3 Insight: Poor Judgment: Poor Interventions PRN's used: None Therapeutic interventions: 1:1 therapeutic evaluation and supportive environment. Encouraged to participate in therapeutic group sessions. Administer required medications for psychiatric stabilization. Q15 safety checks. Restraints/seclusion/emergency medication: NA Justification of Continued Inpatient Treatment: Patient continues to be gravely disabled without a plan to provide food, housing, or clothing. Remains pleasantly psychotic responding happily to internal stimulus. Does not attend to personal ADLs without encouragement. Unable to identify why he takes medications, time and potential SE. Patient would be unable to maintain current level of stability without close observation.
[2019-08-21] MEDS: LORazepam 1 MG tablet PO PRN (18:42)
[2019-08-21 20:00] VITALS: BP 112/74
[2019-08-21] MEDS: clozapine 100mg tablet PO SCH (20:16)
--- NOTE | 2019-08-21 23:20 | NUR ---
Nursing Progress Note: Legal hold: 5270 09/04/19 @ 1410 Client on involuntary status for GD Report received from Juan Morales RN with use of SBAR. Why are they here: On presentation to ED patient demonstrates psychosis, admits to both AH & VH. Making it difficult to interview. Admits hallucinations are bothersome to him, however he is cooperative and pleasant with a very poor attention span. Patient was placed on a 5150 for GD advisement completed. States he was locked out of the [facility] and stopped his medications due to this. Assessment What has happened this shift: Pt was in rec room at change of shift watching tv. Pt reports feeling anxious 7/10 and requests prn, prn given w/good effect. Pt is smiling and pleasant with staff and others, makes jokes, etc. Pt requested battery recharger for ankle bracelet. Pt denies a/vh, but is seen talking to himself. S/I, H/I: Denies. A/VH: Denies Sleep: reports being aware of commotion on the floor last night and woke early and hopes to sleep well tonight. see sleep hours ADL's: Independent Group attendance: No evening groups Were meds taken: Yes Any med S/E: none observed or reported Mental Status Exam Appearance: Young disheveled male in green scrub top and shorts. Eye contact: good Behavior: animated, cooperative pleasant Speech: clear, soft, normal rate/rhythm Mood: euthymic Affect: congruent with mood Thought process: [place]. Circumstantial. Thought Content: talking about having a new roommate Cognition: A & O X 3 Insight: Poor Judgment: Poor Interventions PRN's used: None Therapeutic interventions: 1:1 therapeutic evaluation and supportive environment. Encouraged to participate in therapeutic group sessions. Administer required medications for psychiatric stabilization. Q15 safety checks. Restraints/seclusion/emergency medication: NA Justification of Continued Inpatient Treatment: Patient continues to be gravely disabled without a plan to provide food, housing, or clothing. Remains pleasantly psychotic responding happily to internal stimulus. Does not attend to personal ADLs without encouragement. Unable to identify why he takes medications, time and potential SE. Patient would be unable to maintain current level of stability without close observation.
[2019-08-22 07:00] VITALS: BP 137/75
[2019-08-22 07:31] LABS: BASOPHILS # (AUTO) 0.1 X10'3 (0-0.2); BASOPHILS % (AUTO) 0.8 % (0-1); EOSINOPHILS # (AUTO) 0.2 X10'3 (0-0.9); EOSINOPHILS % (AUTO) 2.5 % (0-6); HEMATOCRIT 42.9 % (42.0-52.0); HEMOGLOBIN 14.3 g/dl (14.0-17.9); LYMPHOCYTES # (AUTO) 1.9 X10'3 (1.1-4.8); LYMPHOCYTES % (AUTO) 24.8 % (21-51); MEAN CORPUSCULAR HEMOGLOBIN 29.1 PG (27.0-31.0); MEAN CORPUSCULAR HGB CONC 33.3 g/dL (33.0-36.5); MEAN CORPUSCULAR VOLUME 87.3 FL (78-98); MEAN PLATELET VOLUME 7.8 FL (7.4-10.4); MONOCYTES # (AUTO) 0.9 X10'3 (0-0.9); MONOCYTES % (AUTO) 11.4 % (2-12); NEUTROPHILS # (AUTO) 4.6 X10'3 (1.8-7.7); NEUTROPHILS % (AUTO) 60.5 % (42-75); PLATELET COUNT 204 X10'3 (140-440); RED BLOOD COUNT 4.91 X10'6 (4.70-6.10); RED CELL DISTRIBUTION WIDTH 13.4 % (11.5-14.5); WHITE BLOOD COUNT 7.6 X10'3 (4.5-11.0)
[2019-08-22] MEDS: clozapine 25mg tablet PO SCH ×3 (08:10→20:20)
[2019-08-22] MEDS: sertraline 50mg tablet PO SCH (08:11)
[2019-08-22] MEDS: docusate sod 100mg capsule PO SCH ×2 (08:11→20:21)
[2019-08-22] MEDS: nicotine 21mg patch - 24 hr TD SCH (08:11)
[2019-08-22] MEDS: sennosides 8.6mg tablet PO SCH ×2 (08:11→20:20)
[2019-08-22] MEDS: ATOMOXETINE HCL 40 MG CAPSULE PO SCH (08:12)
[2019-08-22] MEDS: NICOTINE POLACRILEX 2 MG LOZENGE BC PRN ×3 (10:02→18:56)
--- NOTE | 2019-08-22 16:37 | NUR ---
Nursing Progress Note: Legal hold: 5270 09/04/19 @ 1410 Client on involuntary status for GD Report received from LUIS FERNANDO Guerrero with use of SBAR. Why are they here: On presentation to ED patient demonstrates psychosis, admits to both AH & VH. Making it difficult to interview. Admits hallucinations are bothersome to him, however he is cooperative and pleasant with a very poor attention span. Patient was placed on a 5150 for GD advisement completed. States he was locked out of the [facility] and stopped his medications due to this. Assessment What has happened this shift: Patient reports that he is being discharged on the . Patient has concerns about being discharged and where he will go. Patient eating, drinking, having regular bowel movements. Patient is well liked by staff and peers. S/I, H/I: Denies. A/VH: Denies, but appears to be responding to stimuli. Sleep: Slept until lunch. ADL's: Independent with prompting. Showered this afternoon. Group attendance: No. Were meds taken: Yes Any med S/E None Mental Status Exam Appearance: male wearing hospital attire. Freshly showered. Eye contact: Intermittent Behavior: Fatigue in the mornings, animated in the afternoon Speech: clear, soft, normal rate/rhythm Mood: Good. Affect: congruent with mood Thought process: [place]. Circumstantial. Thought Content: Discharge plan Cognition: A & O X 3 Insight: Poor Judgment: Poor Interventions PRN's used: None Therapeutic interventions: 1:1 therapeutic evaluation and supportive environment. Encouraged to participate in therapeutic group sessions. Administer required medications for psychiatric stabilization. Q15 safety checks. Restraints/seclusion/emergency medication: NA Justification of Continued Inpatient Treatment: Patient continues to be gravely disabled without a plan to provide food, housing, or clothing. Remains pleasantly psychotic responding happily to internal stimulus. Does not attend to personal ADLs without encouragement. Unable to identify why he takes medications, time and potential SE. Patient would be unable to maintain current level of stability without close observation.
[2019-08-22] MEDS: LORazepam 1 MG tablet PO PRN (16:56)
[2019-08-22] MEDS: OLANZapine 5mg rapidly disint. tablet PO PRN (16:56)
--- NOTE | 2019-08-22 17:12 | NUR ---
Nurses Note: Patient came to RN requesting something for anxiety, also states that he is getting "present". He states that he is feeling like he is going to start having A/H, and "that's when everything happens". Zyprexa 5 mg and Ativan 1 mg given p.o. Patient exercising and pacing at this time. Will continue to monitor.
[2019-08-22] MEDS: clozapine 100mg tablet PO SCH (20:21)
[2019-08-22 20:59] VITALS: BP 109/69
--- NOTE | 2019-08-22 23:08 | NUR ---
Nursing Progress Note: Legal hold: 5270 09/04/19 @ 1410 Client on involuntary status for GD Report received from LUIS FERNANDO Nielson with use of SBAR. Why are they here: On presentation to ED patient demonstrates psychosis, admits to both AH & VH. Making it difficult to interview. Admits hallucinations are bothersome to him, however he is cooperative and pleasant with a very poor attention span. Patient was placed on a 5150 for GD advisement completed. States he was locked out of the [facility] and stopped his medications due to this. Assessment What has happened this shift: Patient is both happy and anxious about being dc'd. pt states that he is happy to have some freedom and smoke cigarettes, but is unsure how he will survive without support. pt reports that he is from [place] but has to stay in [place] due to his parole. pt states that he has no family support left in [place], but would still like to return there when he can. S/I, H/I: Denies. A/VH: Denies Sleep: asleep now ADL's: Independent Group attendance: snack Were meds taken: Yes Any med S/E None Mental Status Exam Appearance: clean appearing, wearing own clothing Eye contact: good Behavior: animated Speech: clear, soft, normal rate/rhythm Mood: Good. Affect: congruent with mood Thought process: [place]. Circumstantial. Thought Content: Discharge plan Cognition: A & O X 3 Insight: Poor Judgment: Poor Interventions PRN's used: None Therapeutic interventions: 1:1 therapeutic evaluation and supportive environment. Encouraged to participate in therapeutic group sessions. Administer required medications for psychiatric stabilization. Q15 safety checks. Restraints/seclusion/emergency medication: NA Justification of Continued Inpatient Treatment: Patient continues to be gravely disabled without a plan to provide food, housing, or clothing. Remains pleasantly psychotic responding happily to internal stimulus. Does not attend to personal ADLs without encouragement. Unable to identify why he takes medications, time and potential SE. Patient would be unable to maintain current level of stability without close observation.
[2019-08-23 07:27] LABS: BASOPHILS # (AUTO) 0.1 X10'3 (0-0.2); BASOPHILS % (AUTO) 0.9 % (0-1); EOSINOPHILS # (AUTO) 0.3 X10'3 (0-0.9); EOSINOPHILS % (AUTO) 3.7 % (0-6); HEMATOCRIT 43.4 % (42.0-52.0); HEMOGLOBIN 14.4 g/dl (14.0-17.9); LYMPHOCYTES # (AUTO) 2.1 X10'3 (1.1-4.8); LYMPHOCYTES % (AUTO) 30.6 % (21-51); MEAN CORPUSCULAR HEMOGLOBIN 29.1 PG (27.0-31.0); MEAN CORPUSCULAR HGB CONC 33.3 g/dL (33.0-36.5); MEAN CORPUSCULAR VOLUME 87.4 FL (78-98); MEAN PLATELET VOLUME 7.9 FL (7.4-10.4); MONOCYTES # (AUTO) 0.7 X10'3 (0-0.9); MONOCYTES % (AUTO) 10.8 % (2-12); NEUTROPHILS # (AUTO) 3.7 X10'3 (1.8-7.7); PLATELET COUNT 211 X10'3 (140-440); RED BLOOD COUNT 4.96 X10'6 (4.70-6.10); RED CELL DISTRIBUTION WIDTH 13.5 % (11.5-14.5); WHITE BLOOD COUNT 6.9 X10'3 (4.5-11.0)
[2019-08-23] MEDS: nicotine 21mg patch - 24 hr TD SCH (07:33)
[2019-08-23] MEDS: clozapine 25mg tablet PO SCH ×2 (07:34→11:45)
[2019-08-23] MEDS: ATOMOXETINE HCL 40 MG CAPSULE PO SCH (07:34)
[2019-08-23] MEDS: sertraline 50mg tablet PO SCH (07:34)
[2019-08-23] MEDS: sennosides 8.6mg tablet PO SCH ×2 (07:35→20:40)
[2019-08-23] MEDS: docusate sod 100mg capsule PO SCH ×2 (07:35→20:40)
[2019-08-23 08:37] VITALS: BP 109/70
[2019-08-23] MEDS: NICOTINE POLACRILEX 2 MG LOZENGE BC PRN ×2 (10:53→16:23)
--- NOTE | 2019-08-23 10:55 | NUR ---
Reassessment: Pt PO 100% regular diet meeting needs. LBM 08/22. No nutrition concerns at this time. Will continue to monitor. Rec: 1. continue regular diet 2. routine bowel care 3. wt per rx Addendum: 08/23/19 at [address] Amended: Links added.
[2019-08-23] MEDS ORDERED: ATOMOXETINE 80 MG CAPSULE PO SCH (13:47)
--- NOTE | 2019-08-23 14:14 | NUR ---
Nursing Progress Note: Scotty Legal hold: 5270 09/04/19 @ 1410 Client on involuntary status for GD Report received from LUIS FERNANDO Guerrero with use of SBAR. Why are they here: On presentation to ED patient demonstrates psychosis, admits to both & . Making it difficult to interview. Admits hallucinations are bothersome to him, however he is cooperative and pleasant with a very poor attention span. Patient was placed on a 5150 for GD advisement completed. States he was locked out of the [facility] and stopped his medications due to this. Assessment What has happened this shift: Assumed care of this client at 0630 hours today. Client stated that he is worried about, "what will happen to me when I get out". Client was given reassurance that this would be a viable discharge and the housing should be provided by the [facility] as well as [place]/Probation. Client has been compliant with all aspects of his care and has had no behavioral challenges this shift. He is discharge oriented but remains hopeful that this discharge will not be, "fucked up". No PRN use as of this writing at 1409 hours. S/I, H/I: Denies. A/VH: Denies Sleep: 7.75 hours last shift ADL's: Independent Group attendance: yes Were meds taken: Yes Any med S/E None Mental Status Exam Appearance: clean appearing, wearing own clothing Eye contact: good Behavior: animated Speech: clear, soft, normal rate/rhythm Mood: Good. Affect: congruent with mood Thought process: [place]. Circumstantial. Thought Content: Discharge plan Cognition: A & O X 3 Insight: Poor Judgment: Poor Interventions PRN's used: None Therapeutic interventions: 1:1 therapeutic evaluation and supportive environment. Encouraged to participate in therapeutic group sessions. Administer required medications for psychiatric stabilization. Q15 safety checks. Restraints/seclusion/emergency medication: NA Justification of Continued Inpatient Treatment: Patient continues to be gravely disabled without a plan to provide food, housing, or clothing. Remains pleasantly psychotic responding happily to internal stimulus. Does not attend to personal ADLs without encouragement. Unable to identify why he takes medications, time and potential SE. Patient would be unable to maintain current level of stability without close observation.
[2019-08-23] MEDS ORDERED: OLAN5TAB29 PO (14:47)
[2019-08-23] MEDS ORDERED: CLOZ100T13 PO (14:47)
[2019-08-23] MEDS ORDERED: CLOZ25TA12 PO (14:47)
[2019-08-23] MEDS ORDERED: DOCU100C40 PO (14:47)
[2019-08-23] MEDS ORDERED: ATOM80CA PO (14:47)
[2019-08-23] MEDS ORDERED: SENN-173 PO (14:47)
[2019-08-23] MEDS ORDERED: NICO-668 BC (14:47)
[2019-08-23] MEDS ORDERED: SERT50TA10 PO (14:47)
[2019-08-23] MEDS: LORazepam 1 MG tablet PO PRN (15:09)
[2019-08-23 20:00] VITALS: BP 126/80
[2019-08-23] MEDS ORDERED: clozapine 100mg tablet PO SCH (21:00)
--- NOTE | 2019-08-23 21:50 | NUR ---
Nursing Progress Note: Scotty Legal hold: 5270 09/04/19 @ 1410 Client on involuntary status for GD Report received from LUIS FERNANDO De Paz with use of SBAR. Why are they here: On presentation to ED patient demonstrates psychosis, admits to both AH & VH. Making it difficult to interview. Admits hallucinations are bothersome to him, however he is cooperative and pleasant with a very poor attention span. Patient was placed on a 5150 for GD advisement completed. States he was locked out of the [facility] and stopped his medications due to this. Assessment What has happened this shift: Assumed care of this client at 1830 hours today. Client stated that he is happy about D/C . Client has been compliant with all aspects of his care and has had no behavioral challenges this shift. He is looling forword to discharge remains hopeful that this discharge will not be, "fucked up". No PRN use at this time. S/I, H/I: Denies. A/VH: Denies Sleep: 7.75 hours last shift ADL's: Independent Group attendance: yes Were meds taken: Yes Any med S/E None Mental Status Exam Appearance: clean appearing, wearing own clothing Eye contact: good Behavior: animated Speech: clear, soft, normal rate/rhythm Mood: Good. Affect: congruent with mood Thought process: [place]. Circumstantial. Thought Content: Discharge plan Cognition: A & O X 3 Insight: Poor Judgment: Poor Interventions PRN's used: None Therapeutic interventions: 1:1 therapeutic evaluation and supportive environment. Encouraged to participate in therapeutic group sessions. Administer required medications for psychiatric stabilization. Q15 safety checks. Restraints/seclusion/emergency medication: NA Justification of Continued Inpatient Treatment: Patient continues to be gravely disabled without a plan to provide food, housing, or clothing. Remains pleasantly psychotic responding happily to internal stimulus. Does not attend to personal ADLs without encouragement. Unable to identify why he takes medications, time and potential SE. Patient would be unable to maintain current level of stability without close observation.
[2019-08-24] MEDS ORDERED: clozapine 25mg tablet PO SCH (07:30)
[2019-08-24 07:41] VITALS: BP 116/72
[2019-08-24] MEDS: docusate sod 100mg capsule PO SCH (08:19)
[2019-08-24] MEDS: nicotine 21mg patch - 24 hr TD SCH (08:19)
[2019-08-24] MEDS: sennosides 8.6mg tablet PO SCH (08:21)
--- NOTE | 2019-08-24 08:21 | NUR ---
CM/DC Presenting Issues: Pt's d/c-ing this morning to check in @ [facility] and access services to maintain his MH stability. Interventions: 1:1-Therapy/Closure SS met w/pt, utilized [place] & CBT strategies to assist pt in practicing asking for help and rehearsing how to have a discussion w/MH providers to identify his needs & goals for MH treatment. Pt was excited and looking fwd to d/c-ing but also verbalized some anxiety associated w/not having a safe senior care as he is a parolee who is required to wear an ankle bracelet for the next 3 years and has to charge that bracelet. SS handed pt a list of the needs that he had identified and instructed pt to hand this to the MH clinician @ [facility]. Plan: Pt to d/c this AM, SS referral closed. Shirin Carlos LCSW Addendum: 08/24/19 at 0829 by Shirin BEAN Amended: Links added.
--- NOTE | 2019-08-24 09:40 | NUR ---
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 All personal items were inventoried and in patient's possession at time of discharge. He was ambulating self, no distress observed. Pt was given a meal, nicotine replacement, and weather appropriate clothing. All paperwork was reviewed with the patient. Questions were answered and Pt verbalized understanding. All medications sent electronically and Patient given instructions to pickling drum operator prescriptions at [facility]. Pt denied SI, HI, A/VH however at times still appears to be responding to some internal stimuli, talking to someone who is not there. He is smiling and pleasant and cooperative with all care. Pictures taken of left foot and left great toe. MRSA swab obtained.
[2019-08-24] MEDS ORDERED: ATOM80CA PO (14:01)
[2019-08-24] MEDS ORDERED: CLOZ100T31 PO (14:01)
[2019-08-24] MEDS ORDERED: DOCU100C41 PO (14:01)
[2019-08-24] MEDS ORDERED: OLAN5TAB26 PO (14:01)
[2019-08-24] MEDS ORDERED: SERT100T PO (14:01)
[2019-08-24] MEDS ORDERED: CLOZ25TA36 PO (14:01)
[2019-08-24] MEDS ORDERED: SENN-162 PO (14:01)
== END 2019-08-24 09:40 | disposition short-term general hospital (02) | DRG 750 ==
LOC: ADULT MH 11:48
PROVIDERS: ADMIT Psychiatry & Neurology Psychiatry; ATTEND Psychiatry & Neurology Psychiatry
DX: F20.9 Schizophrenia, unspecified (principal); R45.851 Suicidal ideations; F29 Unspecified psychosis not due to a substance or known physiological condition; F17.200 Nicotine dependence, unspecified, uncomplicated; F31.9 Bipolar disorder, unspecified; Z56.0 Unemployment, unspecified; Z59.0 Homelessness
CPT/HCPCS: 36415; 71046; 80061; 81003; 84443; 85025; 87081; 99285

== ENCOUNTER 2019-08-24 12:54 | Emergency (ER) | payer MEDICAID ==
[~2019-08-24] VITALS: Ht 180.3 cm; Wt 115.5 kg
[~2019-08-24 12:54] MED LIST changes: +ATOM80CA PO; +DOCU100C40 PO; +LISI-600 PO; +OLAN5TAB29 PO; +SENN-173 PO
--- NOTE | 2019-08-24 13:29 | NUR ---
Patient arrived via EMS transferred from [facility]. On 5150 for GD, unable to determine plan for food, clothing, or penitentiary. Presents pleasant, cooperative with adequate understanding of why he was returned to the hospital. Denies A/V hallucinations, all belongings gathered and documented. Lunch provided.
[2019-08-24 13:51] LABS: URINE AMPHETAMINE SCREEN NEGATIVE (Neg); URINE BARBITUATE SCREEN NEGATIVE (Neg); URINE BENZODIAZEPINES SCREEN NEGATIVE (Neg); URINE CANNABINOID SCREEN NEGATIVE (Neg); URINE COCAINE SCREEN NEGATIVE (Neg); URINE METHADONE SCREEN NEGATIVE (Neg); URINE OPIATE SCREEN NEGATIVE (Neg); URINE PHENCYCLIDINE SCREEN NEGATIVE (Neg)
[2019-08-24 13:58] LABS: CLARITY,URINE CLOUDY (Clear); COLOR,URINE YELLOW (Yellow); GLUCOSE, URINE NEGATIVE (Neg); KETONES,URINE NEGATIVE (Neg); LEUKOCYTE ESTERASE ,URINE NEGATIVE (Neg); NITRITES, URINE NEGATIVE (Neg); OCCULT BLOOD,URINE NEGATIVE (Neg); PROTEIN,URINE NEGATIVE (Neg); UROBILINOGEN,URINE 0.2 E.U/dL (0.2-1.0)
[2019-08-24 13:59] LABS: BASOPHILS % (AUTO) 0.4 % (0-1); EOSINOPHILS # (AUTO) 0.2 X10'3 (0-0.9); EOSINOPHILS % (AUTO) 2.3 % (0-6); HEMATOCRIT 42.4 % (42.0-52.0); HEMOGLOBIN 14.1 g/dl (14.0-17.9); LYMPHOCYTES # (AUTO) 1.5 X10'3 (1.1-4.8); LYMPHOCYTES % (AUTO) 18.8 % (21-51); MEAN CORPUSCULAR HEMOGLOBIN 29.1 PG (27.0-31.0); MEAN CORPUSCULAR HGB CONC 33.3 g/dL (33.0-36.5); MEAN CORPUSCULAR VOLUME 87.3 FL (78-98); MEAN PLATELET VOLUME 7.7 FL (7.4-10.4); MONOCYTES # (AUTO) 0.4 X10'3 (0-0.9); MONOCYTES % (AUTO) 5.7 % (2-12); NEUTROPHILS # (AUTO) 5.8 X10'3 (1.8-7.7); NEUTROPHILS % (AUTO) 72.8 % (42-75); PLATELET COUNT 211 X10'3 (140-440); RED BLOOD COUNT 4.85 X10'6 (4.70-6.10); RED CELL DISTRIBUTION WIDTH 13.3 % (11.5-14.5); WHITE BLOOD COUNT 7.9 X10'3 (4.5-11.0)
[2019-08-24 14:00] LABS: UA COLLECTION TYPE CLN CATCH MIDSTREAM
[2019-08-24] MEDS ORDERED: OLAN5TAB26 PO (14:01)
[2019-08-24] MEDS ORDERED: SENN-162 PO (14:01)
[2019-08-24] MEDS ORDERED: DOCU100C41 PO (14:01)
[2019-08-24] MEDS ORDERED: ATOM80CA PO (14:01)
[2019-08-24] MEDS ORDERED: CLOZ100T31 PO (14:01)
[2019-08-24] MEDS ORDERED: CLOZ25TA36 PO (14:01)
[2019-08-24] MEDS ORDERED: SERT100T PO (14:01)
[2019-08-24 14:08] LABS: AMORPHOUS PHOSPHATES 3+; BACTERIA,URINE 2+ /HPF (Neg); RBC,URINE 0-2 /HPF (0-2); SQUAMOUS EPITHELIAL CELL,UR FEW /LPF (FEW); WBC,URINE 0-4 /HPF (0-4)
[2019-08-24 14:13] LABS: ALANINE AMINOTRANSFERASE 28 U/L (12-78); ALBUMIN 3.6 G/DL (3.4-5.0); ALBUMIN/GLOBULIN RATIO 1.2 (1.1-1.5); ALKALINE PHOSPHATASE 126 IU/L (46-116); ANION GAP 5 (8-16); ASPARTATE AMINO TRANSFERASE 14 U/L (10-37); BILIRUBIN,TOTAL 0.2 MG/DL (0.1-1.0); BLOOD UREA NITROGEN 13 MG/DL (7-18); CALCIUM 8.5 MG/DL (8.5-10.1); CHLORIDE 107 MMOL/L (99-107); CREATININE 1.18 MG/DL (0.60-1.10); ETHANOL < 0.010 GM/DL (0.0-0.010); GLUCOSE 167 MG/DL (70-104); SODIUM 139 MMOL/L (135-145); TOTAL CARBON DIOXIDE 26.8 MMOL/L (24-32); TOTAL PROTEIN 6.6 G/DL (6.4-8.2); eGFR 75 ML/MIN
[2019-08-24] MEDS ORDERED: OLANZAPINE 5 MG TABLET PO PRN (15:50)
--- NOTE | 2019-08-24 16:15 | NUR ---
Patient is hopeful that 5150 will be dismissed as he states he is fine going to the mission and picking up his medications. He is unsure as to why the SW felt he was GD and unable to meet his needs.
--- NOTE | 2019-08-24 18:04 | NUR ---
Would like to be discharged to the mission, awaiting decision of [facility].
--- NOTE | 2019-08-24 18:50 | NUR ---
Pt sitting in bed, then up pacing around near his bed.
[2019-08-24] MEDS: docusate sod 100mg capsule PO SCH (20:28)
[2019-08-24] MEDS: sennosides 8.6mg tablet PO SCH (20:28)
--- NOTE | 2019-08-24 20:30 | NUR ---
Pt ate a late dinner. Pt observed to be actively responding to IS. During 1:1, pt stated his was "a little anxious because I thought I could go, but it passed, and I'm okay staying here if that's what's gotta happen." Pt states Anxiety 10/16, Denies Depression, Denies SI, but is +VH ("there are 5 bodies in the corner over there") and +AH ("the voices are clear sometimes, but not saying anything bad.") RN reassured pt the VH are not real, and could not get pt to elaborate on exactly what the AH's are stating. Pt is observed to be thought blocking during conversation, and while linear, pt is unable to provide resources he could use to assist him if discharged for medications or housing. His mood is "Good" and affect is euthymic. He is friendly and cooperative, but appears restless aeb pacing. Pt took HS medications, and shortly thereafter went to sleep. Pt ankle bracelet charged.
[2019-08-24] MEDS ORDERED: CLOZAPINE 25 MG oral disintegrating tablet PO SCH (21:00)
[2019-08-24] MEDS ORDERED: clozapine 100mg tablet PO SCH (21:00)
--- NOTE | 2019-08-24 22:26 | NUR ---
Pt appears to be sleeping, currently on left side. No signs of distress.
--- NOTE | 2019-08-25 00:32 | NUR ---
Pt sleeping, repositioning self intermittently. Noted to be snoring. No apparent distress.
--- NOTE | 2019-08-25 00:56 | NUR ---
COVERING BRYN GOULD FOR BREAK. PT SLEEPING PEACEFULLY. RESPIRATIONS EVEN AND UNLABORED. PT SLEEPING ON LEFT SIDE. NO SIGNS OF DISTRESS AT THIS TIME.
--- NOTE | 2019-08-25 02:39 | NUR ---
Pt sleeping on left side. No distress noted.
--- NOTE | 2019-08-25 05:09 | NUR ---
Pt sleeping, no distress noted. Repostioning self during sleep cycle.
--- NOTE | 2019-08-25 06:46 | NUR ---
PT RESTING ON LEFT SIDE RR EQUAL AND UNLABORED
[2019-08-25] MEDS ORDERED: ATOMOXETINE 80 MG CAPSULE PO SCH (08:00)
[2019-08-25] MEDS ORDERED: sertraline 50mg tablet PO SCH (08:00)
[2019-08-25] MEDS: docusate sod 100mg capsule PO SCH (08:28)
[2019-08-25] MEDS: sennosides 8.6mg tablet PO SCH (08:28)
--- NOTE | 2019-08-25 08:54 | NUR ---
PT RESTING ON RIGHT SIDE RR EQUAL
--- NOTE | 2019-08-25 10:29 | NUR ---
PT RESTING ON LEFT SIDE RR EQUAL AND UNLABORED
--- NOTE | 2019-08-25 11:04 | NUR ---
Received report from LUIS FERNANDO Vyas. Pt is resting in bed peacefully at this time in the supine positition. No distress observed. Pt is currently being evaluated by Dr. Torres at bedside.
--- NOTE | 2019-08-25 12:20 | NUR ---
Pt resting on back rr equal and unlabored
--- NOTE | 2019-08-25 13:40 | NUR ---
Pt discharged from the unit in , accompanied by unit tech and security. All personal items were inventoried and in Pt's possession at time of discharge. No distress observed. Pt offered nicotine replacement. Pt ate his lunch and denied complaints. Paperwork was reviewed, questions were answered and Pt verbalized understanding. He was pleasant and cooperative.
[2019-08-25 15:45] VITALS: BP 124/84
== END 2019-08-25 13:40 | disposition home or self-care (01) ==
LOC: ER 12:55
DX: F79 Unspecified intellectual disabilities (principal); F31.9 Bipolar disorder, unspecified; F20.9 Schizophrenia, unspecified; F12.90 Cannabis use, unspecified, uncomplicated; F15.90 Other stimulant use, unspecified, uncomplicated; Z59.0 Homelessness; Z79.899 Other long term (current) drug therapy
CPT/HCPCS: 36415; 80053; 80305; 80320; 81001; 85025; 99285

== ENCOUNTER 2019-08-25 11:48 | Inpatient (IN) | payer MEDICAID ==
[~2019-08-25] VITALS: Ht 182.9 cm; Wt 152.8 kg
[~2019-08-25 11:48] MED LIST changes: -CLOZ100T13 PO; +CLOZ100T31 PO; -CLOZ25TA12 PO; +CLOZ25TA36 PO; -DOCU100C40 PO; +DOCU100C41 PO; -LISI-600 PO; -NICO-668 BC; +OLAN5TAB26 PO; -OLAN5TAB29 PO; -SENN-173 PO; +SENN-263 PO; +SERT100T PO; -SERT50TA10 PO
--- NOTE | 2019-08-25 13:42 | NUR ---
This client was admitted per protocol at 1342 hours when he arrived on unit in . He was accompanied by 2 Security Officers and 1 Staff from unit. Client is on a 5150 hold as GD and original hold accompanied him to the unit. Client was read the involuntary advisement. Safety search/inventory was conducted and valuables were secured per unit protocol.All assessments were completed with client being primary historian. MRSA swab was collected and sent to Lab for processing. Client was oriented again to unit, room and surroundings. Client is alert and oriented x 4 and is aware of reasons for this admission. Client contracts verbally for safe unit behaviors. No somatic complaints upon admission. Addendum: 08/25/19 at 1515 by Baldev Franklin RN Vital signs on admission were, ZQ=504/79. P= 110. R=14 and T=98.1. )2 sats were98% on RA.
[2019-08-25] MEDS ORDERED: mag hydrox/Alum hydrox/simeth 30ml oral suspension PO PRN (14:05)
[2019-08-25] MEDS: NICOTINE POLACRILEX 2 MG LOZENGE BC PRN ×2 (16:10→21:44)
[2019-08-25] MEDS: LORazepam 1 MG tablet PO PRN (16:17)
[2019-08-25] MEDS ORDERED: OLANZapine 5mg rapidly disint. tablet PO PRN (16:25)
[2019-08-25 20:00] VITALS: BP 126/71
[2019-08-25] MEDS: sennosides 8.6mg tablet PO SCH ×2 (20:00→20:37)
[2019-08-25] MEDS: docusate sod 100mg capsule PO SCH ×2 (20:00→20:37)
[2019-08-25] MEDS: CLOZAPINE 25 MG oral disintegrating tablet PO SCH (20:38)
[2019-08-25] MEDS: sertraline 50mg tablet PO SCH (20:38)
[2019-08-25] MEDS: CLOZAPINE 100 MG TAB.RAPDIS PO SCH (20:41)
[2019-08-25] MEDS ORDERED: CLOZAPINE 25 MG oral disintegrating tablet PO SCH (21:00)
[2019-08-25] MEDS ORDERED: CLOZAPINE 100 MG TAB.RAPDIS PO SCH (21:00)
--- NOTE | 2019-08-25 22:12 | NUR ---
Nursing Progress Note: [facility] Legal hold: 5150 Client on voluntary/involuntary status for GD. Report received from nurse with use of FRANK De Paz RN. Why are they here: This client was admitted per protocol at 1342 hours when he arrived on unit in . He was accompanied by 2 Security Officers and 1 Staff from unit. Client is on a 5150 hold as GD and original hold accompanied him to the unit. Client was read the involuntary advisement. Safety search/inventory was conducted and valuables were secured per unit protocol.All assessments were completed with client being primary historian. MRSA swab was collected and sent to Lab for processing. Client was oriented again to unit, room and surroundings. Client is alert and oriented x 4 and is aware of reasons for this admission. Client contracts verbally for safe unit behaviors. No somatic complaints upon admission. Assessment What has happened this shift: Patient up and pacing the unit. He is responding to internal stimuli talking to him self and laughs inappropriately. He is social with staff and peers and Med compliant. Pt denies SI/HI and reports hearing voices. S/I, H/I: Denies A/VH: voices Sleep: ADL's:independent Group attendance:yes Were meds taken:yes Any med S/E none Mental Status Exam Appearance: clean Eye contact:good Behavior: cooperative Speech:normal Mood: manic Affect:[] Thought process:[] Thought Content:[] Cognition:[] Insight:poor Judgment:poor Interventions PRN's used:none Therapeutic interventions:[] Restraints/seclusion/emergency medication:none Justification of Continued Inpatient Treatment:[]
[2019-08-26 07:50] VITALS: BP 139/81
[2019-08-26] MEDS ORDERED: SERTRALINE HCL 100 MG PO SCH (08:00)
[2019-08-26] MEDS: docusate sod 100mg capsule PO SCH ×3 (08:00→21:28)
[2019-08-26] MEDS: sennosides 8.6mg tablet PO SCH ×3 (08:00→21:28)
[2019-08-26] MEDS ORDERED: atomoxetine 40 MG capsule PO SCH (08:00)
[2019-08-26] MEDS: CLOZAPINE 25 MG oral disintegrating tablet PO SCH ×2 (08:30→21:29)
[2019-08-26] MEDS: nicotine 21mg patch - 24 hr TD SCH (08:32)
[2019-08-26 08:59] LABS: HEMOGLOBIN A1C 5.8 % (4.5-6.2)
[2019-08-26 09:04] LABS: CHOL/HDL RATIO 4.6 (0.00-4.99); CHOLESTEROL 180 MG/DL (0-200); HDL CHOLESTEROL 39 MG/DL (35-60); LDL CHOLESTEROL 122 MG/DL (50-100); TRIGLYCERIDES 204 MG/DL (20-135)
[2019-08-26 13:01] LABS: BASOPHILS # (AUTO) 0.1 X10'3 (0-0.2); BASOPHILS % (AUTO) 0.8 % (0-1); EOSINOPHILS # (AUTO) 0.2 X10'3 (0-0.9); HEMOGLOBIN 15.3 g/dl (14.0-17.9); LYMPHOCYTES # (AUTO) 2.3 X10'3 (1.1-4.8); LYMPHOCYTES % (AUTO) 29.1 % (21-51); MEAN CORPUSCULAR HEMOGLOBIN 29.6 PG (27.0-31.0); MEAN CORPUSCULAR VOLUME 87.2 FL (78-98); MEAN PLATELET VOLUME 8.1 FL (7.4-10.4); MONOCYTES % (AUTO) 12.2 % (2-12); NEUTROPHILS # (AUTO) 4.4 X10'3 (1.8-7.7); NEUTROPHILS % (AUTO) 55.9 % (42-75); PLATELET COUNT 216 X10'3 (140-440); RED BLOOD COUNT 5.16 X10'6 (4.70-6.10); RED CELL DISTRIBUTION WIDTH 13.4 % (11.5-14.5); WHITE BLOOD COUNT 7.9 X10'3 (4.5-11.0)
[2019-08-26] MEDS: NICOTINE POLACRILEX 2 MG LOZENGE BC PRN ×3 (15:01→21:38)
--- NOTE | 2019-08-26 17:13 | NUR ---
Nursing Progress Note: Legal hold: 5150 Client on involuntary status for GD. Report received from nurse with use of FRANK Coley LVN. Why are they here: This client was admitted per protocol at 1342 hours when he arrived on unit in . He was accompanied by 2 Security Officers and 1 Staff from unit. Client is on a 5150 hold as GD and original hold accompanied him to the unit. Client was read the involuntary advisement. Safety search/inventory was conducted and valuables were secured per unit protocol.All assessments were completed with client being primary historian. MRSA swab was collected and sent to Lab for processing. Client was oriented again to unit, room and surroundings. Client is alert and oriented x 4 and is aware of reasons for this admission. Client contracts verbally for safe unit behaviors. No somatic complaints upon admission. Assessment What has happened this shift: Patient asleep at start of shift. Pt. Gets double portions, is sleeping good, having regular bowel movements. Pt. Appears to be in a good mood today. He was given a baseball hat by another RN today, and was sporting that around unit. Has been watching [employer] Much of the day. S/I, H/I: Denies A/VH: Denies. Sleep: Slept in the a.m. ADL's: independent Group attendance: No Were meds taken:yes Any med S/E none Mental Status Exam Appearance: Young male with shaved head wearing street clothes and baseball hat. Eye contact: good Behavior: cooperative Speech: Clear, normal rate and rhythm. Mood: Euthymic. Affect: Animated. Thought process: Linear, circumstantial. Thought Content: Basic needs. Cognition: Alert. Insight: poor Judgment: poor Interventions PRN's used: none Restraints/seclusion/emergency medication: none Therapeutic interventions: 1:1 assessment, establishment of rapport, therapeutic conversation, medication administration/education/monitoring, encouragement to attend groups, discharge process education, Q 15 min safety checks. Restraints/seclusion/emergency medication:none Justification of Continued Inpatient Treatment: Pt states his AH is ongoing, he needs crisis stabilization and medication adjustment/monitoring in a safe and therapeutic environment to prevent decompensation and readmission, he needs placement.
[2019-08-26] MEDS: hydrOXYzine 25 MG tablet PO PRN (19:54)
[2019-08-26 20:01] VITALS: BP 109/61
[2019-08-26] MEDS: CLOZAPINE 100 MG TAB.RAPDIS PO SCH (21:29)
[2019-08-26] MEDS: sertraline 50mg tablet PO SCH (21:29)
--- NOTE | 2019-08-27 01:11 | NUR ---
Nursing Progress Note: Legal hold: 5150 Exp 08/28 @ 1342 Client on involuntary status for GD. Report received from LUIS FERNANDO Fox with use of SBAR. Why are they here: This client was admitted per protocol at 1342 hours when he arrived on unit in . He was accompanied by 2 Security Officers and 1 Staff from unit. Client is on a 5150 hold as GD and original hold accompanied him to the unit. Client was read the involuntary advisement. Safety search/inventory was conducted and valuables were secured per unit protocol.All assessments were completed with client being primary historian. MRSA swab was collected and sent to Lab for processing. Client was oriented again to unit, room and surroundings. Client is alert and oriented x 4 and is aware of reasons for this admission. Client contracts verbally for safe unit behaviors. No somatic complaints upon admission. Assessment What has happened this shift: Pt sleeping in his room at shift change. Pt appears to be responding to internal stimuli AEB pt is observed walking the halls talking to himself in a squeaky voice and swinging his arms in the air. Pt denies SI, A/VH. Pt is cooperative an pleasant when this chief underwriter introduces self and establishes rapport. This chief underwriter comments on his new Phillmike's hat and pt grins from ear to ear "pretty cool." Pt requests to charge his ankle monitor. When asked how he is feeling "I'm just feeling it," and requests an Ativan. This chief underwriter suggested to start with Atarax 50mg PRN, pt agreed. Atarax appears to be effective, pt went to bed after charging his ankle monitor. Pt taking Clozaril 675. WBC's on 08/26 WNL's. S/I, H/I: None reported or observed. A/VH: None reported, however pt is seen talking to himself and swinging arms in the air. Sleep: Currently sleeping, without sleeping aid. See Sleep Assessment for total hours. ADL's: independent Group attendance: machinist 2nd shift, no group. Were meds taken: Took medication without incident. Any med S/E: None reported or observed. Mental Status Exam Appearance: Clean, young male with shaved head wearing street clothes and baseball hat. Eye contact: Good Behavior: Cooperative, calm Speech: Clear, normal rate and rhythm. Mood: Euthymic, big smiles. Affect: Animated. Thought process: Circumstantial. Thought Content: Circumstantial Cognition: A&O x3 Insight: Poor Judgment: Poor Interventions PRN's used: Atarax Restraints/seclusion/emergency medication: None Therapeutic interventions: 1:1 assessment, establishment of rapport, therapeutic conversation, medication administration/education/monitoring, encouragement to attend groups, discharge process education, Q 15 min safety checks. Restraints/seclusion/emergency medication:none Justification of Continued Inpatient Treatment: Patient is unable to formulate a plan to safely meet his basic needs of food, clothing, skilled nursing due to the severity of his mental illness. He has very poor insight and judgment into the severity of his mental illness. Working toward ON.
[2019-08-27 07:30] VITALS: BP 106/69
[2019-08-27] MEDS: docusate sod 100mg capsule PO SCH ×2 (08:19→20:19)
[2019-08-27] MEDS: sennosides 8.6mg tablet PO SCH ×2 (08:19→20:18)
[2019-08-27] MEDS: nicotine 21mg patch - 24 hr TD SCH (08:19)
[2019-08-27] MEDS: NICOTINE POLACRILEX 2 MG LOZENGE BC PRN ×3 (12:44→20:23)
[2019-08-27] MEDS: OLANZAPINE 5 MG TABLET PO PRN (15:42)
[2019-08-27] MEDS: LORazepam 1 MG tablet PO PRN (17:12)
--- NOTE | 2019-08-27 17:28 | NUR ---
Nursing Progress Note: Legal hold: 5150 Client on involuntary status for GD. Report received from nurse with use of FRANK Arnold RN. Why are they here: This client was admitted per protocol at 1342 hours when he arrived on unit in . He was accompanied by 2 Security Officers and 1 Staff from unit. Client is on a 5150 hold as GD and original hold accompanied him to the unit. Client was read the involuntary advisement. Safety search/inventory was conducted and valuables were secured per unit protocol.All assessments were completed with client being primary historian. MRSA swab was collected and sent to Lab for processing. Client was oriented again to unit, room and surroundings. Client is alert and oriented x 4 and is aware of reasons for this admission. Client contracts verbally for safe unit behaviors. No somatic complaints upon admission. Assessment What has happened this shift: Patient up and social on the unit after mornings nap. He reports that he is anxious about where he will be going. States that he would like to get a job to earn extra money. Client came up to RN in afternoon and requested Zyprexa and stated that he is hearing voices and seeing people. Patient is talking to himself in hallways and is reportedly making hopping movements in hallway, responding to internal stimuli. Ativan 1 mg given with instruction to calm down. Patient verbalizes understanding. S/I, H/I: Denies A/VH: Denies in a.m. Reports A/V/H in afternoon. Sleep: Slept in the a.m. ADL's: independent Group attendance: a.m. group. Were meds taken: yes Any med S/E: none Mental Status Exam Appearance: Young male with shaved head in personal attire, changing frequently throughout the day. Eye contact: Intermittent. Behavior: cooperative. In afternoons becomes animated and activated. Speech: Clear, normal rate and rhythm. Mood: Euthymic. Affect: Blunted to animated. Thought process: Linear, circumstantial. Thought Content: What he is going to do at discharge. Cognition: Alert. Insight: poor Judgment: poor Interventions PRN's used: Nicotine lozenges, Zyprexa, Ativan Restraints/seclusion/emergency medication: none Therapeutic interventions: 1:1 assessment, establishment of rapport, therapeutic conversation, medication administration/education/monitoring, encouragement to attend groups, discharge process education, Q 15 min safety checks. Restraints/seclusion/emergency medication:none Justification of Continued Inpatient Treatment: Pt states his AH is ongoing, he needs crisis stabilization and medication adjustment/monitoring in a safe and therapeutic environment to prevent decompensation and readmission, he needs placement.
[2019-08-27 19:46] VITALS: BP 106/70
[2019-08-27] MEDS: CLOZAPINE 100 MG TAB.RAPDIS PO SCH (20:18)
[2019-08-27] MEDS: CLOZAPINE 25 MG oral disintegrating tablet PO SCH (20:18)
[2019-08-27] MEDS: sertraline 50mg tablet PO SCH (20:19)
--- NOTE | 2019-08-28 00:28 | NUR ---
Nursing Progress Note: Legal hold: 5150 Client on involuntary status for GD. Report received from nurse with use of FRANK Nielson RN. Why are they here: This client was admitted per protocol at 1342 hours when he arrived on unit in . He was accompanied by 2 Security Officers and 1 Staff from unit. Client is on a 5150 hold as GD and original hold accompanied him to the unit. Client was read the involuntary advisement. Safety search/inventory was conducted and valuables were secured per unit protocol.All assessments were completed with client being primary historian. MRSA swab was collected and sent to Lab for processing. Client was oriented again to unit, room and surroundings. Client is alert and oriented x 4 and is aware of reasons for this admission. Client contracts verbally for safe unit behaviors. No somatic complaints upon admission. Assessment What has happened this shift: Patient watching tv in rec room with other pt's at change on shift. pt presented as happy and friendly during 1:1. pt reports that he is still unsure about where he will end up and it's stressing him out. pt has no family support and has a hard time caring for himself. pt denied being suicidal, denies a/vh because "the medications helped." pt watched tv throughout the evening, attended snack and then went to bed without issue. S/I, H/I: Denies A/VH: Denies Sleep: asleep now. ADL's: independent Group attendance: snack Were meds taken: yes Any med S/E: none Mental Status Exam Appearance: in street clothes that are clean, with a baseball hat Eye contact: direct Behavior: cooperative. Speech: Clear, normal rate and rhythm. Mood: Euthymic. Affect: happy Thought process: Linear, circumstantial. Thought Content: What he is going to do at discharge. Cognition: Alert. Insight: poor Judgment: poor Interventions PRN's used: Nicotine lozenges Restraints/seclusion/emergency medication: none Therapeutic interventions: 1:1 assessment, establishment of rapport, therapeutic conversation, medication administration/education/monitoring, encouragement to attend groups, discharge process education, Q 15 min safety checks. Restraints/seclusion/emergency medication:none Justification of Continued Inpatient Treatment: Pt states his AH is ongoing, he needs crisis stabilization and medication adjustment/monitoring in a safe and therapeutic environment to prevent decompensation and readmission, he needs placement.
[2019-08-28 07:45] VITALS: BP 114/68
[2019-08-28] MEDS: docusate sod 100mg capsule PO SCH ×2 (07:48→20:11)
[2019-08-28] MEDS: sennosides 8.6mg tablet PO SCH ×2 (07:48→20:11)
[2019-08-28] MEDS: nicotine 21mg patch - 24 hr TD SCH (07:50)
--- NOTE | 2019-08-28 15:39 | NUR ---
Nursing Progress Note: [facility] Legal hold: 5250 Client on voluntary/involuntary status for GD Report received from nurse with use of FRANK Grove RN. Why are they here: Patient had been discharged previously with follow up at [facility]. Upon assessment by the [facility], it was determined patient was not able to obtain, food, snf, or clothing and wrote 5150 for GD. Patient returned within hours of discharge. At time of return patient denied any symptoms related to his mental illness diagnosis of Schizophrenia. Assessment What has happened this shift: Patient sleeping at time of shift change, had to be woken up for breakfast and medication pass. Denies increased depression or anxiety. Admits to hearing voices but states they are friendly, its like having a conversation with friends. Patient isolative in room. Placed on a voluntary status. In recreation room in afternoon working with others to create a holdiay posterboard. S/I, H/I: Denies, verbalizes frustration at being readmitted A/VH: yes, states they are friendly, its like having a conversation with friends. Sleep: 8.5, resting throughout the day ADL's: independent, requires some encouragement Group attendance: No Were meds taken: yes Any med S/E None observed Mental Status Exam Appearance: slightly dishelved, street clothes Eye contact: direct accept when responding to internal stimuli Behavior: friendly, calm, cooperative Speech: clear, normal rate, rhythm Mood: Euthymic Affect:Congruent with mood Thought process: able to stay on topic (linear) tangential when responding to internal stimuli (worse in afternoon) Thought Content: Not wanting to be on unit, especially during ángel Cognition: A & O X 4 Insight: Poor Judgment: Poor Interventions PRN's used: None Therapeutic interventions: establishment of rapport, therapeutic conversation, 1:1 assessment, medication administration/education/monitoring, Therapeutic group attendance, Q 15 min safety checks. Restraints/seclusion/emergency medication:none Justification of Continued Inpatient Treatment: Patient remains GD (is unable to verbalize appropriate plan to obtain food, clothing or snf). Continues with , requires stabilization and safe discharge plan to assure continued compliance with medication and treatment plan.
[2019-08-28] MEDS: NICOTINE POLACRILEX 2 MG LOZENGE BC PRN ×3 (16:02→20:23)
[2019-08-28] MEDS: LORazepam 1 MG tablet PO PRN (17:41)
[2019-08-28] MEDS: OLANZAPINE 5 MG TABLET PO PRN (19:23)
[2019-08-28] MEDS: CLOZAPINE 25 MG oral disintegrating tablet PO SCH (20:10)
[2019-08-28] MEDS: clozapine 100mg tablet PO SCH (20:11)
[2019-08-28] MEDS: sertraline 50mg tablet PO SCH (20:11)
[2019-08-28 20:24] VITALS: BP 131/80
--- NOTE | 2019-08-28 23:37 | NUR ---
Nursing Progress Note: [facility] Legal hold: 5250 Client on involuntary status for GD Report received from nurse with use of FRANK Grove RN. Why are they here: Patient had been discharged previously with follow up at [facility]. Upon assessment by the [facility], it was determined patient was not able to obtain, food, long term, or clothing and wrote 5150 for GD. Patient returned within hours of discharge. At time of return patient denied any symptoms related to his mental illness diagnosis of Schizophrenia. Assessment What has happened this shift: Pt was in the hallway at change of shift, reports feeling very anxious despite having prn ativan and nicotine lozenge, pt was given zyprexa w/good effect. Pt spent evening watching tv with peers. Pt was pleasant and smiling, however anxious about being readmitted. Pt continues to hear . Pts appetite is good and he sleeps well. S/I, H/I: Denies A/VH: yes Sleep: see sleep hours ADL's: independent Group attendance: No Were meds taken: yes Any med S/E None observed Mental Status Exam Appearance: adequately groomed and dressed wearing street clothes Eye contact: direct except when responding to internal stimuli Behavior: friendly, calm, cooperative Speech: clear, normal rate, rhythm Mood: Euthymic Affect:Congruent with mood Thought process: linear, RIS Thought Content: Not wanting to be on unit, especially during ángel Cognition: A & O X 4 Insight: Poor Judgment: Poor Interventions PRN's used: nicotine lozenge, zyprexa Therapeutic interventions: establishment of rapport, therapeutic conversation, 1:1 assessment, medication administration/education/monitoring, Therapeutic group attendance, Q 15 min safety checks. Restraints/seclusion/emergency medication:none Justification of Continued Inpatient Treatment: Patient remains GD (is unable to verbalize appropriate plan to obtain food, clothing or long term). Continues with , requires stabilization and safe discharge plan to assure continued compliance with medication and treatment plan.
[2019-08-29 07:30] VITALS: BP 116/79
[2019-08-29] MEDS: sennosides 8.6mg tablet PO SCH ×2 (07:45→20:09)
[2019-08-29] MEDS: docusate sod 100mg capsule PO SCH ×2 (07:45→20:09)
[2019-08-29] MEDS: nicotine 21mg patch - 24 hr TD SCH (07:46)
[2019-08-29] MEDS: NICOTINE POLACRILEX 2 MG LOZENGE BC PRN ×2 (15:05→20:57)
--- NOTE | 2019-08-29 15:17 | NUR ---
Nursing Progress Note: [facility] Legal hold: 5250 Client on voluntary/involuntary status for GD Report received from nurse with use of FRANK Guerrero RN. Why are they here: Patient had been discharged previously with follow up at [facility]. Upon assessment by the [facility], it was determined patient was not able to obtain, food, mcc, or clothing and wrote 5150 for GD. Patient returned within hours of discharge. At time of return patient denied any symptoms related to his mental illness diagnosis of Schizophrenia. Assessment What has happened this shift: Patient approached in community room, waiting for breakfast. He sits alone without any interactions with others. He presents guarded, and potentially angry. Spoke with who stated she is concerned that he is repressing his anger and may lose control. Participated in morning group (in order to charge his monitor), but also was playing ustyme with the director hris. At one point snapped his fingers at this proposal writer in order to request a nicotine lozenge. Patient appears less agitated and demonstrates a more pleasant demeanor. S/I, H/I: Denies A/VH: I always hear them, they arent bothering me Sleep: 6.75 ADL's: Independent Group attendance: Yes Were meds taken: Yes without difficulty Any med S/E: None observed or reported Mental Status Exam Appearance: well groomed, street clothes Eye contact: avoident Behavior: Guarded Speech: clear, normal rate rhythm Mood: dysphoric, early in shift euthymic in afternoon Affect: Restricted Thought process: [place] Thought Content: being placed on 5250 hold Cognition: A & O X 4 Insight: Poor Judgment: Poor Interventions PRN's used: None Therapeutic interventions: establishment of rapport, therapeutic conversation, 1:1 assessment, medication administration/education/monitoring, Therapeutic group attendance, Q 15 min safety checks. Restraints/seclusion/emergency medication: none Justification of Continued Inpatient Treatment: Patient remains GD (is unable to verbalize appropriate plan to obtain food, clothing or mcc). Continues with , requires stabilization and safe discharge plan to assure continued compliance with medication and treatment plan.
[2019-08-29] MEDS: LORazepam 1 MG tablet PO PRN (17:25)
[2019-08-29 19:31] VITALS: BP 112/74
[2019-08-29] MEDS: CLOZAPINE 25 MG oral disintegrating tablet PO SCH (20:08)
[2019-08-29] MEDS: sertraline 50mg tablet PO SCH (20:09)
[2019-08-29] MEDS: clozapine 100mg tablet PO SCH (20:13)
--- NOTE | 2019-08-29 22:19 | NUR ---
Nursing Progress Note: Legal hold: 5250 Client on involuntary status for GD Report received from nurse with use of FRANK schumacher RN. Why are they here: Patient had been discharged previously with follow up at [facility] Team. Upon assessment by the [facility], it was determined patient was not able to obtain, food, jail, or clothing and wrote 5150 for GD. Patient returned within hours of discharge. At time of return patient denied any symptoms related to his mental illness diagnosis of Schizophrenia. Assessment What has happened this shift: Pt was in rec room watching tv show at change of shift. He is smiling and interactions are pleasant with others. Did not notice patient responding to any internal stimuli tonight, continues to endorse hearing voices. Pts appetite is good, he is sleeping well at night. S/I, H/I: Denies A/VH: auditory denies CAH Sleep: good see sleep hours ADL's: Independent Group attendance: Yes Were meds taken: Yes Any med S/E: None observed or reported Mental Status Exam Appearance: well groomed, street clothes Eye contact: good Behavior: pleasant, cooperative Speech: clear, normal rate rhythm Mood: euthymic Affect: Restricted Thought process: [place] Thought Content: talking about all the food he ate today Cognition: A & O X 4 Insight: Poor Judgment: Poor Interventions PRN's used: None Therapeutic interventions: establishment of rapport, therapeutic conversation, 1:1 assessment, medication administration/education/monitoring, Therapeutic group attendance, Q 15 min safety checks. Restraints/seclusion/emergency medication: none Justification of Continued Inpatient Treatment: Patient remains GD (is unable to verbalize appropriate plan to obtain food, clothing or jail). Continues with , requires stabilization and safe discharge plan to assure continued compliance with medication and treatment plan.
[2019-08-30 07:08] VITALS: BP 116/68
[2019-08-30] MEDS: docusate sod 100mg capsule PO SCH ×2 (08:25→20:27)
[2019-08-30] MEDS: sennosides 8.6mg tablet PO SCH ×2 (08:25→20:27)
[2019-08-30] MEDS: nicotine 21mg patch - 24 hr TD SCH (08:25)
--- NOTE | 2019-08-30 16:19 | NUR ---
Nursing Progress Note: Legal hold: 5250 Client on involuntary status for GD Report received from nurse with use of FRANK Guerrero RN. Why are they here: Patient had been discharged previously with follow up at [facility] Team. Upon assessment by the [facility], it was determined patient was not able to obtain, food, fpc, or clothing and wrote 5150 for GD. Patient returned within hours of discharge. At time of return patient denied any symptoms related to his mental illness diagnosis of Schizophrenia. Assessment What has happened this shift: Patient fatigued this morning, gets up for morning [employer] and [employer] libertarian, then went back to bed. Pt. Has been isolating to his room today and appears subdued. S/I, H/I: Denies A/VH: Not right now. Sleep: 8.0 hrs NOC, napped during morning. ADL's: Independent Group attendance: a.m. group Were meds taken: Yes Any med S/E: None observed or reported Mental Status Exam Appearance: Clean and neat wearing personal attire. Eye contact: Minimal. Behavior: Calm and cooperative. Speech: clear, normal rate rhythm Mood: Subdued. Affect: Blunted. Thought process: [place]. Thought Content: Basic needs. Cognition: A & O X 4 Insight: Poor Judgment: Poor Interventions PRN's used: None Therapeutic interventions: establishment of rapport, therapeutic conversation, 1:1 assessment, medication administration/education/monitoring, Therapeutic group attendance, Q 15 min safety checks. Restraints/seclusion/emergency medication: none Justification of Continued Inpatient Treatment: Patient remains GD (is unable to verbalize appropriate plan to obtain food, clothing or fpc). Continues with , requires stabilization and safe discharge plan to assure continued compliance with medication and treatment plan.
[2019-08-30] MEDS: NICOTINE POLACRILEX 2 MG LOZENGE BC PRN ×2 (17:17→20:28)
[2019-08-30] MEDS: hydrOXYzine 25 MG tablet PO PRN (19:48)
[2019-08-30] MEDS: clozapine 100mg tablet PO SCH (20:27)
[2019-08-30] MEDS: sertraline 50mg tablet PO SCH (20:28)
[2019-08-30] MEDS: clozapine 25mg tablet PO SCH (20:29)
--- NOTE | 2019-08-30 20:42 | NUR ---
Nursing Note: Clozaril 75mg (3X25mg tablets) verified with KERMIT Vasquez before administration.
[2019-08-30 20:46] VITALS: BP 122/74
--- NOTE | 2019-08-31 00:55 | NUR ---
Nursing Progress Note: Legal hold:5250 Client on involuntary status for GD Report received from nurse with use of SBAR: LUIS FERNANDO Martinez Why are they here: Patient had been discharged previously with follow up at [facility] Team. Upon assessment by the [facility], it was determined patient was not able to obtain, food, nursing home, or clothing and a 5150 for GD was written. Patient returned within hours of discharge. At time of return patient denied any symptoms related to his mental illness diagnosis of Schizophrenia. He continues to present with cognitive impairment which impedes his ability to care of himself, and requires multiple supports and external structures. Assessment What has happened this shift: Pt. up in the Recreation Room at the beginning of the shift, watching TV and interacting minimally with others. He later attends snack and pulse is found to be elevated upon obtaining V/S. Pt. denies any anxiety, however appears visibly anxious and sits in a chair restlessly shaking his legs. PRN Atrax administered, and upon re-assessment pulse WNL. 1:1 completed, pt. continues to deny any MH s/s, however exhibits inappropriate laughter throughout the the conversation. He is also unable to tell this personal lines underwriter why he is here on the unit, states, "I'm here because I couldn't find re-housing." Pt. charges his ankle monitor and retreats to bed. He is discovered to be sleeping backwards in the bed, with his head facing the wrong way, will continue to monitor. S/I, H/I: Denies A/VH: Denies, however exhibits inappropriate laughter Sleep: Appears to be sleeping well, however is discovered to be sleeping backwards in the bed, with his head facing the wrong way. ADL's: Requires some prompting and direction from staff Group attendance: Pt reports he attends groups, and is able to identify coping skills as distraction and recognizing his feelings Were meds taken: Yes Any med S/E: None Mental Status Exam Appearance: Presents with a shaved head, and appropriately dressed in hospital attire Eye contact: Good Behavior: Cooperative, restless, and guarded Speech: Soft, responds only to questions Mood: pleasant Affect: Blunted Thought process: Poverty of thought Thought Content: Possible A/V/THOMAS AEB inappropriate laughter Cognition: A&O X3 (not to reason here) Insight: Poor Judgment: Poor Interventions PRN's used: Atrax Therapeutic interventions: Ensured contract for safety, maintained a safe and therapeutic environment, provided clear and simple instructions, oriented to reality as needed, encouraged independent performance of ADLs, provided positive encouragement, and maintained Q 15 min safety checks. Restraints/seclusion/emergency medication: N/A Justification of Continued Inpatient Treatment: Per Dr. Treviño, pt. continues to demonstrate poor insight and judgement r/t ability to obtain nursing home, medications, and transportation and the risks involved with each. [facility] is currently trying to conserve this patient.
[2019-08-31 08:00] VITALS: BP 96/62
[2019-08-31] MEDS: docusate sod 100mg capsule PO SCH ×2 (08:16→20:22)
[2019-08-31] MEDS: sennosides 8.6mg tablet PO SCH ×2 (08:16→20:22)
[2019-08-31] MEDS: atomoxetine 40 MG capsule PO SCH (08:16)
[2019-08-31] MEDS: nicotine 21mg patch - 24 hr TD SCH (08:17)
--- NOTE | 2019-08-31 12:09 | NUR ---
Initial: Pt AOx3 admit w/ schizoaffective disorder. PO 100% regular diet meeting needs. LBM 08/28. TG 203 on admit would benefit from anti-hyperlipidemic per MD approval. No other nutrition concerns at this time. Will continue to monitor. Rec: 1. continue regular diet 2. anti-hyperlipidemic w/ TG 203 per MD approval 3. wt per rx Addendum: 08/31/19 at [address] Amended: Links added.
--- NOTE | 2019-08-31 17:23 | NUR ---
Nursing Progress Note: Legal hold: 5250 Client on involuntary status for GD Report received from nurse with use of FRANK Guerrero RN. Why are they here: Patient had been discharged previously with follow up at [facility] Team. Upon assessment by the [facility], it was determined patient was not able to obtain, food, fci, or clothing and wrote 5150 for GD. Patient returned within hours of discharge. At time of return patient denied any symptoms related to his mental illness diagnosis of Schizophrenia. Assessment What has happened this shift: Received Pt asleep in bed w/o distress at beginning of shift. Pt awoke for vitals and breakfast and interacted appropriately in group room with others. He took AM meds w/o issue. Smiling and dressed in his street clothes in AM and stated he wanted to leave and go to the [facility] after his Hearing if he was able to leave. Pt met with Pt Advocate and attended his 5250 hearing. It was decided that his 5250 would be upheld. Pt restless and paced jama in afternoon for over 2 hrs talking to self and appeared to be responding to internal stimuli. He was pleasant when approached and stated he was ok with the decision and he was willing to stay and get better housing. S/I, H/I: Denies A/VH: Long periods of talking to self and appeared to be responding to internal stimuli Sleep: None on this shift ADL's: Independent Group attendance: Morning group Were meds taken: Yes Any med S/E: None observed or reported Mental Status Exam Appearance: Clean and neat wearing personal attire. Eye contact: Minimal. Behavior: Calm and cooperative in AM. Restless and pacing after Hearing Speech: Clear, normal rate rhythm Mood: Subdued. Affect: Blunted. Thought process: [place] thinking Thought Content: Going to [facility] Cognition: A & O X 4 Insight: Poor Judgment: Poor Interventions PRN's used: None Therapeutic interventions: establishment of rapport, therapeutic conversation, 1:1 assessment, medication administration/education/monitoring, Therapeutic group attendance, Q 15 min safety checks. Restraints/seclusion/emergency medication: none Justification of Continued Inpatient Treatment: Patient remains GD (is unable to verbalize appropriate plan to obtain food, clothing or fci). Continues with , requires stabilization and safe discharge plan to assure continued compliance with medication and treatment plan.
[2019-08-31] MEDS: NICOTINE POLACRILEX 2 MG LOZENGE BC PRN (18:54)
[2019-08-31] MEDS: hydrOXYzine 25 MG tablet PO PRN (18:54)
[2019-08-31 20:00] VITALS: BP 117/73
[2019-08-31] MEDS: clozapine 100mg tablet PO SCH (20:22)
[2019-08-31] MEDS: LORazepam 1 MG tablet PO PRN (20:23)
[2019-08-31] MEDS: sertraline 50mg tablet PO SCH (20:23)
[2019-08-31] MEDS: clozapine 25mg tablet PO SCH (20:31)
--- NOTE | 2019-09-01 01:16 | NUR ---
Nursing Progress Note: Legal hold:5250 Client on involuntary status for GD Report received from nurse with use of SBAR: LUIS FERNANDO Martinez Why are they here: Patient had been discharged previously with follow up at [facility]. Upon assessment by the [facility], it was determined patient was not able to obtain, food, assisted, or clothing and a 5150 for GD was written. Patient returned within hours of discharge. At time of return patient denied any symptoms related to his mental illness diagnosis of Schizophrenia. He continues to present with cognitive impairment which impedes his ability to care of himself, and requires multiple supports and external structures. Assessment What has happened this shift: Pt. up pacing in the hallway at the beginning of the shift, appears visibly anxious, and is actively responding to internal stimuli. This marketing writer observed pt. and was able to articulate what he was saying to himself, he stated, "I'm going to get that fucking twenty-two and shoot you!" When approached by this marketing writer, pt. denies anxiety and is pleasant, however he accepts PRN Atrax at this time. He later attends HS snack and continues to appear slightly anxious with an elevated pulse, PRN Ativan administered with effectiveness. 1:1 completed, pt. continues to deny any anxiety, S/I, H/I, or A/V/THOMAS, however he does admit that his depression is improved starting his medications. He repots that he does not mind staying here for a while longer, and admits that it is a relief not to be worried about obtaining food, clothing, or assisted. Pt. charges his ankle monitor and retreats to bed. He is again noted to be sleeping backwards in the bed, with his head facing the wrong way, will continue to monitor. S/I, H/I: Denies A/VH: Denies, however is actively responding to internal stimuli at the beginning of the shift Sleep: Again appears to be sleeping well, however is sleeping backwards in the bed, with his head facing the wrong way. ADL's: Requires some prompting and direction from staff Group attendance: Pt reports he attended groups today and enjoyed them Were meds taken: Yes Any med S/E: None Mental Status Exam Appearance: Presents with a shaved head, and appropriately dressed in hospital attire Eye contact: Good Behavior: Cooperative, restless, anxious, and guarded Speech: Soft, responds only to questions Mood: Restless, however remains pleasant Affect: Constricted Thought process: Poverty of thought Thought Content: A/V/THOMAS and preoccupation with desire to discharge Cognition: A&O X3 (not to reason here) Insight: Poor Judgment: Poor Interventions PRN's used: Atrax and Ativan Therapeutic interventions: Ensured contract for safety, maintained a safe and therapeutic environment, provided clear and simple instructions, oriented to reality as needed, encouraged independent performance of ADLs, provided positive encouragement, monitored behaviors and need for intervention, and maintained Q 15 min safety checks. Restraints/seclusion/emergency medication: N/A Justification of Continued Inpatient Treatment: Per Dr. Treviño, pt. continues to demonstrate poor insight and judgement r/t ability to obtain assisted, medications, and transportation and the risks involved with each. He will remain here until appropriate housing is obtained.
[2019-09-01 08:00] VITALS: BP 114/74
[2019-09-01] MEDS: nicotine 21mg patch - 24 hr TD SCH (08:04)
[2019-09-01] MEDS: docusate sod 100mg capsule PO SCH ×2 (08:05→20:38)
[2019-09-01] MEDS: sennosides 8.6mg tablet PO SCH ×2 (08:05→20:39)
[2019-09-01] MEDS: atomoxetine 40 MG capsule PO SCH (08:05)
[2019-09-01] MEDS: NICOTINE POLACRILEX 2 MG LOZENGE BC PRN ×3 (13:31→20:39)
--- NOTE | 2019-09-01 15:18 | NUR ---
Nursing Progress Note: Legal hold: 5250 Client on involuntary status for GD Report received from nurse with use of FRANK Arango RN. Why are they here: Patient had been discharged previously with follow up at [facility] Team. Upon assessment by the [facility], it was determined patient was not able to obtain, food, mcc, or clothing and wrote 5150 for GD. Patient returned within hours of discharge. At time of return patient denied any symptoms related to his mental illness diagnosis of Schizophrenia. Assessment What has happened this shift: Pt awake all shift and attended all meals and groups and in between groups, pt was visible on the unit interacting appropriately with staff and peers. Pt offered no complaints today and had a bright affect all shift; smiling freely. Pt states he is in a good mood today and says yesterday was harder because, evil forces were controlling my face, but they are not bothering me today Pt states he used to think the evil spirits were the staff and he would get mad at staff, but now he realizes that they are his own thoughts so he doesnt get mad at staff. S/I, H/I: Denies A/VH: observed talking to self at times. Sleep: None on this shift ADL's: Independent Group attendance: both groups Were meds taken: Yes Any med S/E: None observed or reported Mental Status Exam Appearance: Clean and neat wearing personal attire. Eye contact: Minimal. Behavior: Calm and cooperative in AM. Restless and pacing after Hearing Speech: Clear, normal rate rhythm Mood: Subdued. Affect: Blunted. Thought process: [place] thinking Thought Content: Going to [facility] Cognition: A & O X 4 Insight: Poor Judgment: Poor Interventions PRN's used: None Therapeutic interventions: establishment of rapport, therapeutic conversation, 1:1 assessment, medication administration/education/monitoring, Therapeutic group attendance, Q 15 min safety checks. Restraints/seclusion/emergency medication: none Justification of Continued Inpatient Treatment: Patient remains GD (is unable to verbalize appropriate plan to obtain food, clothing or mcc). Continues with , requires stabilization and safe discharge plan to assure continued compliance with medication and treatment plan.
[2019-09-01 19:00] VITALS: BP 135/81
[2019-09-01 20:00] VITALS: BP 119/78
[2019-09-01] MEDS: clozapine 25mg tablet PO SCH (20:39)
[2019-09-01] MEDS: sertraline 25mg tablet PO SCH (20:39)
[2019-09-01] MEDS: clozapine 100mg tablet PO SCH (20:39)
[2019-09-01] MEDS: hydrOXYzine 25 MG tablet PO PRN (22:25)
--- NOTE | 2019-09-01 22:44 | NUR ---
Nursing Progress Note: Legal hold:5250 Client on involuntary status for GD Report received from nurse with use of SBAR: LUIS FERNANDO Martinez Why are they here: Patient had been discharged previously with follow up at [facility] Team. Upon assessment by the [facility], it was determined patient was not able to obtain, food, long-term, or clothing and a 5150 for GD was written. Patient returned within hours of discharge. At time of return patient denied any symptoms related to his mental illness diagnosis of Schizophrenia. He continues to present with cognitive impairment which impedes his ability to care of himself, and requires multiple supports and external structures. Assessment What has happened this shift: Pt. up sitting in the Recreation Room at the beginning of the shift, smiles and interacts appropriately when greeted by this marketing underwriter. Pt. states animatedly, "I had a better day today." He denies any A/V/THOMAS or any anxiety at this time, and pulse is WNL upon attainment of V/S. Pt. later attends HS snack and then lays in bed listening to headphones. 1:1 completed, and pt. continues to report ongoing depression, however he denies any S/I. When this marketing underwriter questioned pt. in regard to what was triggering this depression, pt. reported that he does not know. He stated, "It's just always been there." He reports contentment with his increase in Zoloft, and is hoping that this will help. S/I, H/I: Denies A/VH: Denies, does not appear to be responding to internal stimuli during the shift Sleep: Pt. experienced some insomnia this shift, and sat up in Recreation Room watching TV until approximately 2230. PRN Atrax administered for anxiety with effectiveness. ADL's: Requires some prompting and direction from staff Group attendance: Pt reports he attended groups today, however reported that pt. did not attend AM group Were meds taken: Yes Any med S/E: None Mental Status Exam Appearance: Presents with a shaved head, and appropriately dressed in hospital attire Eye contact: Good Behavior: Cooperative and guarded (child-like) Speech: Soft, responds only to questions Mood: Pleasant Affect: Blunted Thought process: Poverty of thought Thought Content: Preoccupation with desire to discharge Cognition: A&O X3 (not to reason here) Insight: Poor Judgment: Poor Interventions PRN's used: Atrax and Nicotine Lozenge Therapeutic interventions: Ensured contract for safety, maintained a safe and therapeutic environment, provided clear and simple instructions, oriented to reality as needed, encouraged independent performance of ADLs, provided positive encouragement, monitored behaviors and need for intervention, and maintained Q 15 min safety checks. Restraints/seclusion/emergency medication: N/A Justification of Continued Inpatient Treatment: Pt. continues to require a safe and supportive environment and medication adjustments in progress.
[2019-09-02] MEDS: sennosides 8.6mg tablet PO SCH ×2 (08:00→19:35)
[2019-09-02] MEDS: atomoxetine 40 MG capsule PO SCH (08:00)
[2019-09-02] MEDS: docusate sod 100mg capsule PO SCH ×2 (08:00→19:35)
[2019-09-02] MEDS: nicotine 21mg patch - 24 hr TD SCH (08:01)
[2019-09-02 08:22] VITALS: BP 107/62
[2019-09-02] MEDS: NICOTINE POLACRILEX 2 MG LOZENGE BC PRN ×3 (15:08→21:40)
--- NOTE | 2019-09-02 15:41 | NUR ---
Nursing Progress Note: Legal hold: 5250 Client on involuntary status for GD Report received from nurse with use of SBAR: LUIS FERNANDO Arango Why are they here: Patient had been discharged previously with follow up at [facility] Team. Upon assessment by the [facility], it was determined patient was not able to obtain, food, assisted, or clothing and a 5150 for GD was written. Patient returned within hours of discharge. At time of return patient denied any symptoms related to his mental illness diagnosis of Schizophrenia. He continues to present with cognitive impairment which impedes his ability to care of himself, and requires multiple supports and external structures. Assessment What has happened this shift: Pt sleeping at the change of shift. He was compliant with medication administration. He reported he slept pretty good. He denied depression, anxiety and AH. His appearance was neat. He smiled while talking. He napped during the morning. In the afternoon, he was up with other patients watching TV. S/I, H/I: Denies A/VH: Denies Sleep: Per NOC pt slept 6 hours during the night. He napped during the morning. ADL's: Requires some prompting and direction from staff Group attendance: No Were meds taken: Yes Any med S/E: None noted or reported Mental Status Exam Appearance: Neat and clean Eye contact: Direct Behavior: Pleasant and cooperative Speech: Minimal response to questions Mood: Euthemic Affect: Congruent with mood Thought process: Poverty of thought Thought Content: Unable to assess, pt did not speak much. Cognition: A&O X3 Insight: Poor Judgment: Poor Interventions PRN's used: Nicotine Lozenge Therapeutic interventions: Maintained a safe and therapeutic environment, provided clear and simple instructions, Active listening, encouraged independent performance of ADLs, provided positive encouragement, monitored behaviors and need for intervention, maintained Q15min safety checks, medication education, administration, and monitoring for effects. Restraints/seclusion/emergency medication: N/A Justification of Continued Inpatient Treatment: Pt. continues to require a safe and supportive environment and medication adjustments in progress.
[2019-09-02] MEDS: DOXYCYCLINE 100MG CAPSULE PO SCH (17:46)
[2019-09-02 19:00] VITALS: BP 119/78
[2019-09-02] MEDS: LORazepam 1 MG tablet PO PRN (19:35)
[2019-09-02] MEDS: sertraline 25mg tablet PO SCH (21:33)
[2019-09-02] MEDS: clozapine 25mg tablet PO SCH (21:35)
[2019-09-02] MEDS: clozapine 100mg tablet PO SCH (21:36)
--- NOTE | 2019-09-02 23:04 | NUR ---
Nursing Progress Note: Legal hold: 5250 Client on involuntary status for GD Report received from nurse with use of SBAR: LUIS FERNANDO Arango Why are they here: Patient had been discharged previously with follow up at [facility] Team. Upon assessment by the [facility], it was determined patient was not able to obtain, food, mcfp, or clothing and a 5150 for GD was written. Patient returned within hours of discharge. At time of return patient denied any symptoms related to his mental illness diagnosis of Schizophrenia. He continues to present with cognitive impairment which impedes his ability to care of himself, and requires multiple supports and external structures. Assessment What has happened this shift:Patient pacing hallway following shift change. He is alert and oriented. When patient is asked by this narrative writer how he is feeling he replies "sweet." Patient exhibits anxiety but denies the same. Patient socializes with other patients. He denies depression or S/I, H/I, or hallucinations. Patient ate his dinner. He is medication compliant. Patient given Ativan for his pacing and anxiety, he calms and relaxes some. Patient smiles and laughs at times. He is medication compliant. S/I, H/I: Denies. A/VH: Denies. Sleep: Will tally in am. ADL's: Requires minor prompting. Group attendance: Not on days. Were meds taken: Yes. Any med S/E: None noted or reported. Mental Status Exam Appearance: Neat and clean Eye contact: Direct. Behavior: Pleasant and cooperative Speech: Normal rate and tone. Mood: Upbeat, anxious. Affect: Congruent with mood Thought process: Poverty of thought Thought Content: Patient states he wants to be stable. Cognition: A&O X3. Insight: Poor. Judgment: Poor. Interventions PRN's used: Nicotine Lozenge, Ativan. Therapeutic interventions: Maintained a safe and therapeutic environment, provided clear and simple instructions, Active listening, encouraged independent performance of ADLs, provided positive encouragement, monitored behaviors and need for intervention, maintained Q15min safety checks, medication education, administration, and monitoring for effects. Restraints/seclusion/emergency medication: N/A Justification of Continued Inpatient Treatment: Pt. continues to require a safe and supportive environment and medication adjustments in progress.
[2019-09-03] MEDS: CLOZAPINE 25 MG oral disintegrating tablet PO SCH ×2 (07:59→13:22)
[2019-09-03] MEDS: docusate sod 100mg capsule PO SCH ×2 (07:59→20:09)
[2019-09-03] MEDS: DOXYCYCLINE 100MG CAPSULE PO SCH (07:59)
[2019-09-03] MEDS: atomoxetine 40 MG capsule PO SCH (07:59)
[2019-09-03] MEDS: sennosides 8.6mg tablet PO SCH ×2 (07:59→20:09)
[2019-09-03 08:00] VITALS: BP 95/60
[2019-09-03] MEDS: nicotine 21mg patch - 24 hr TD SCH (08:03)
--- NOTE | 2019-09-03 17:01 | NUR ---
Nursing Progress Note: Legal hold: 5250 Client on involuntary status for GD Report received from nurse with use of SBAR: John RN Why are they here: Patient had been discharged previously with follow up at [facility] Team. Upon assessment by the [facility], it was determined patient was not able to obtain, food, jail, or clothing and a 5150 for GD was written. Patient returned within hours of discharge. At time of return patient denied any symptoms related to his mental illness diagnosis of Schizophrenia. He continues to present with cognitive impairment which impedes his ability to care of himself, and requires multiple supports and external structures. Assessment What has happened this shift: Received pt asleep in bed. Pt up for meals, but spent more time isolating in his room today, napping on and off throughout the day. When approached, pt pleasant and cooperative. Pt affect bright and pt denies depression and suicidal thoughts today. Pt observed responding to internal stimuli, but when questioned, pt denies a/v hallucinations. Pt did not initiate much interaction today with staff or peers and remained more isolative. Pt was a little more interactive after lunch, but then during the movie group, pt napped in bed. S/I, H/I: Denies A/VH: Denies Sleep: napping on and off throughout the day. ADL's: Requires some prompting and direction from staff Group attendance: No Were meds taken: Yes Any med S/E: None noted or reported Mental Status Exam Appearance: Neat and clean Eye contact: Direct Behavior: Pleasant and cooperative Speech: Minimal response to questions Mood: Euthemic Affect: Congruent with mood Thought process: Poverty of thought Thought Content: Unable to assess, pt did not speak much. Cognition: A&O X3 Insight: Poor Judgment: Poor Interventions PRN's used: none Therapeutic interventions: Maintained a safe and therapeutic environment, provided clear and simple instructions, Active listening, encouraged independent performance of ADLs, provided positive encouragement, monitored behaviors and need for intervention, maintained Q15min safety checks, medication education, administration, and monitoring for effects. Restraints/seclusion/emergency medication: N/A Justification of Continued Inpatient Treatment: Pt. continues to require a safe and supportive environment and medication adjustments in progress.
[2019-09-03] MEDS: NICOTINE POLACRILEX 2 MG LOZENGE BC PRN (19:03)
[2019-09-03 19:29] VITALS: BP 128/91
[2019-09-03] MEDS: clozapine 100mg tablet PO SCH (20:09)
[2019-09-03] MEDS: clozapine 25mg tablet PO SCH (20:09)
[2019-09-03] MEDS: sertraline 25mg tablet PO SCH (20:09)
[2019-09-03] MEDS: LORazepam 1 MG tablet PO PRN (22:29)
--- NOTE | 2019-09-04 02:22 | NUR ---
Nursing Progress Note: Legal hold: 5250 Client on involuntary status for GD Report received from nurse with use of SBAR: LUIS FERNANDO Martinez Why are they here: Patient had been discharged previously with follow up at [facility] Team. Upon assessment by the [facility], it was determined patient was not able to obtain, food, correction, or clothing and a 5150 for GD was written. Patient returned within hours of discharge. At time of return patient denied any symptoms related to his mental illness diagnosis of Schizophrenia. He continues to present with cognitive impairment which impedes his ability to care of himself, and requires multiple supports and external structures. Assessment What has happened this shift: The patient was in the hallway at shift change. He is smiling and cooperative per his usual. During 1:1 assessment, the patient reports that he's now waiting to be conserved. "I don't have to like it but I'll go along with it." He says that he's tired of being here, and will do whatever it takes. He spent the evening watching a football game with other clients. The patient states that he attends some groups during the day, "I don't always participate, but enjoy being there." He can be seen and heard responding to IS, but denies when asked about it. The patient was found in the group room eating a snack, when this adjusto writer operator brought his HS meds. He requested Ativan for anxiety then went to bed. S/I, H/I: Denies. A/VH: Seen and heard responding to IS. Sleep: See sleep hours ADL's: Independent. Group attendance: No groups at night. Were meds taken: Yes. Any med S/E: None noted or reported. Mental Status Exam Appearance: Neat and clean, dressed appropriately in street clothes Eye contact: Direct. Behavior: Pleasant and cooperative Speech: Normal rate and tone. Mood: "Pretty good". Affect: Congruent with mood Thought process: Poverty of thought Thought Content: Being conserved. Cognition: A&O X3. Insight: Poor. Judgment: Poor. Interventions PRN's used: Nicotine Lozenge, Ativan. Therapeutic interventions: Maintained a safe and therapeutic environment, provided clear and simple instructions, Active listening, encouraged independent performance of ADLs, provided positive encouragement, monitored behaviors and need for intervention, maintained Q15min safety checks, medication education, administration, and monitoring for effects. Restraints/seclusion/emergency medication: N/A Justification of Continued Inpatient Treatment: Pt. continues to require a safe and supportive environment and medication adjustments in progress.
[2019-09-04 07:37] VITALS: BP 113/66
[2019-09-04] MEDS: docusate sod 100mg capsule PO SCH ×2 (07:54→20:08)
[2019-09-04] MEDS: DOXYCYCLINE 100MG CAPSULE PO SCH (07:54)
[2019-09-04] MEDS: sennosides 8.6mg tablet PO SCH ×2 (07:54→20:08)
[2019-09-04] MEDS: atomoxetine 40 MG capsule PO SCH (07:54)
[2019-09-04] MEDS: CLOZAPINE 25 MG oral disintegrating tablet PO SCH ×2 (07:54→13:04)
[2019-09-04] MEDS: nicotine 21mg patch - 24 hr TD SCH (07:55)
--- NOTE | 2019-09-04 12:49 | NUR ---
Nursing Progress Note: Legal hold: 5250 Client on involuntary status for GD Report received from nurse with use of SBAR: Why are they here: Patient had been discharged previously with follow up at [facility] Team. [place] [facility] was determined patient was not able to obtain, food, residential, or clothing and a 5150 for GD was written. Patient returned within hours of discharge. At time of return patient denied any symptoms related to his mental illness diagnosis of Schizophrenia. He continues to present with cognitive impairment which impedes his ability to care of himself, and requires multiple supports and external structures. Assessment What has happened this shift: Received pt asleep in bed w/o distress at beginning of shift. Pt awoke for breakfast and took AM meds w/o issue. Pt attended all meals and interacted minimally, yet appropriately. Pt participated in group activities and was pleasant and coopoerative throughout the day. He enjoyed patio visit and fresh air. Pt does not appear depressed or endorse depression. Denies A/V hallucinations. Pt walked around unit at times and smiles a lot. Does not communicate verbally much, but will engage when approached. Pt observed talking to himself intermitently and appears to be responding to internal stimuli. Spent time watching TV with others. S/I, H/I: Denies A/VH: Denies Sleep: napping on and off throughout the day. ADL's: Requires some prompting and direction from staff Group attendance: No Were meds taken: Yes Any med S/E: None noted or reported Mental Status Exam Appearance: Neat and clean in street clothes Eye contact: Direct Behavior: Pleasant and cooperative Speech: Minimal response to questions Mood: Euthemic Affect: Congruent with mood Thought process: Poverty of thought Thought Content: Unable to assess, pt did not speak much. Cognition: A&O X3 Insight: Poor Judgment: Poor Interventions PRN's used: none Therapeutic interventions: Maintained a safe and therapeutic environment, provided clear and simple instructions, Active listening, encouraged independent performance of ADLs, provided positive encouragement, monitored behaviors and need for intervention, maintained Q15min safety checks, medication education, administration, and monitoring for effects. Restraints/seclusion/emergency medication: N/A Justification of Continued Inpatient Treatment: Pt. continues to require a safe and supportive environment and medication adjustments in progress.
[2019-09-04] MEDS: NICOTINE POLACRILEX 2 MG LOZENGE BC PRN (17:58)
[2019-09-04] MEDS: clozapine 25mg tablet PO SCH (20:08)
[2019-09-04] MEDS: sertraline 25mg tablet PO SCH (20:08)
[2019-09-04] MEDS: clozapine 100mg tablet PO SCH (20:11)
[2019-09-04 20:26] VITALS: BP 128/82
--- NOTE | 2019-09-04 23:29 | NUR ---
Nursing Progress Note: Legal hold: 5250 Client on involuntary status for GD Report received from nurse with use of SBAR: LUIS FERNANDO Martinez Why are they here: Patient had been discharged previously with follow up at [facility] Team. Upon assessment by the [facility], it was determined patient was not able to obtain, food, [facility], or clothing and a 5150 for GD was written. Patient returned within hours of discharge. At time of return patient denied any symptoms related to his mental illness diagnosis of Schizophrenia. He continues to present with cognitive impairment which impedes his ability to care of himself, and requires multiple supports and external structures. Assessment What has happened this shift: Encountered the patient in the hallway at shift change. He was walking the halls talking to someone not there. When asked denies it. The patient spends time among other clients, but doesn't engage in meaningful conversation. He's cooperative with staff and acts appropriate, but can't explain how he would take care of himself if released now. The patient denies feeling depressed and he's usually smiling at something going on inside. He doesn't stay in one place for long and spends time in the halls pacing and interacting with IS. He was compliant with HS meds and went to bed soon after. S/I, H/I: Denies. A/VH: Seen and heard responding to IS. Sleep: See sleep hours ADL's: Independent. Group attendance: No groups at night. Were meds taken: Yes. Any med S/E: None noted or reported. Mental Status Exam Appearance: Neat and clean, dressed appropriately in street clothes Eye contact: Direct. Behavior: Pleasant and cooperative, responding to IS Speech: Normal rate and tone. Mood: "Great". Affect: Congruent with mood Thought process: Poverty of thought Thought Content: Being conserved. Cognition: A&O X3. Insight: Poor. Judgment: Poor. Interventions PRN's used: Ativan. Therapeutic interventions: Maintained a safe and therapeutic environment, provided clear and simple instructions, Active listening, encouraged independent performance of ADLs, provided positive encouragement, monitored behaviors and need for intervention, maintained Q15min safety checks, medication education, administration, and monitoring for effects. Restraints/seclusion/emergency medication: N/A Justification of Continued Inpatient Treatment: Pt. continues to require a safe and supportive environment and medication adjustments in progress.
[2019-09-05 07:30] VITALS: BP 104/60
[2019-09-05] MEDS: sennosides 8.6mg tablet PO SCH ×2 (08:19→20:24)
[2019-09-05] MEDS: CLOZAPINE 25 MG oral disintegrating tablet PO SCH ×2 (08:19→12:54)
[2019-09-05] MEDS: docusate sod 100mg capsule PO SCH ×2 (08:19→20:24)
[2019-09-05] MEDS: DOXYCYCLINE 100MG CAPSULE PO SCH (08:20)
[2019-09-05] MEDS: nicotine 21mg patch - 24 hr TD SCH (08:20)
[2019-09-05] MEDS: NICOTINE POLACRILEX 2 MG LOZENGE BC PRN ×2 (15:08→18:48)
--- NOTE | 2019-09-05 15:30 | NUR ---
Nursing Progress Note: [facility] Legal hold: 5250 Expires 09/14/19 TCon hearing scheduled for 09/26/19 Client on involuntary status for GD Report received from nurse with use of SBAR: LUIS FERNANDO Guerrero Why are they here: Patient had been discharged previously with follow up at [facility] Team. Upon assessment by the [facility], it was determined patient was not able to obtain, food, mcc, or clothing and a 5150 for GD was written. Patient returned within hours of discharge. At time of return patient denied any symptoms related to his mental illness diagnosis of Schizophrenia. He continues to present with cognitive impairment which impedes his ability to care of himself, and requires multiple supports and external structures. Assessment What has happened this shift: Patient was sleeping at change of shift. Woke up for breakfast, was cooperative with med pass. Participated in groups and was appropriately interacting with both staff and others on the unit. Has been mostly quiet and reserved throughout the day. When asked about the increase in activity, energy he demonstrates each afternoon, he states this has happened since I was 4, I have this shadow that is over me, if I do what I am supposed to, the shadow goes away. When asked if he is hearing voices at these times he admits he does, but is unable to elaborate on what is being said. Its like a group of friends, we sleep all day and then go out and green party. Denies depression or SI. States he would rather be here than in the cold, without food. S/I, H/I: Denies. A/VH: Hears voices more in the afternoon. Sleep: 6.5 ADL's: Independent. Group attendance: yes Were meds taken: Yes Any med S/E: None observed or reported Mental Status Exam Appearance: Neat and clean, dressed appropriately in street clothes Eye contact: Direct. Behavior: Pleasant and cooperative, More signs of internal stimuli in the afternoon Speech: Normal rate and tone. Mood: euthymic. Affect: Congruent with mood Thought process: [place] Thought Content: spoke about group, understanding of why he is here Cognition: A&O X3. Insight: Poor. Judgment: Poor. Interventions PRN's used: Ativan. Therapeutic interventions: Maintained a safe and therapeutic environment, provided clear and simple instructions, Active listening, encouraged independent performance of ADLs, provided positive encouragement, monitored behaviors and need for intervention, maintained Q15min safety checks, medication education, administration, and monitoring for effects. Restraints/seclusion/emergency medication: N/A Justification of Continued Inpatient Treatment: Pt. continues to require a safe and supportive environment and medication adjustments in progress.
[2019-09-05] MEDS: clozapine 25mg tablet PO SCH (20:23)
[2019-09-05] MEDS: clozapine 100mg tablet PO SCH (20:23)
[2019-09-05] MEDS: sertraline 25mg tablet PO SCH (20:24)
[2019-09-05 20:44] VITALS: BP 103/72
--- NOTE | 2019-09-05 23:00 | NUR ---
Nursing Progress Note: Legal hold: 5250 Client on involuntary status for GD Report received from nurse with use of SBAR: LUIS FERNANDO Martinez Why are they here: Patient had been discharged previously with follow up at [facility] Team. Upon assessment by the [facility] [place] [place], it was determined patient was not able to obtain, food, alf, or clothing and a 5150 for GD was written. Patient returned within hours of discharge. At time of return patient denied any symptoms related to his mental illness diagnosis of Schizophrenia. He continues to present with cognitive impairment which impedes his ability to care of himself, and requires multiple supports and external structures. Assessment What has happened this shift: The patient was in the rec room watching tv. He reports that he's just waiting for discharge. I'm just thinking about discharge, what kind of program, food, other necessities." He has been less energetic tonight, not dancing, singing, joking with the voices in his head. He has not been seen responding to IS, and made no delusional statements. The patient spent the evening in the rec room with other clients watching movies, took HS meds, then went to bed. S/I, H/I: Denies. A/VH: Denies. Sleep: See sleep hours ADL's: Independent. Group attendance: No groups at night. Were meds taken: Yes. Any med S/E: None noted or reported. Mental Status Exam Appearance: Neat and clean, wearing a [employer] shirt and black pants. Eye contact: Direct. Behavior: Pleasant and cooperative. Less energetic than yesterday. Speech: Normal rate and tone. Mood: "Sweet". Affect: Congruent with mood Thought process: Poverty of thought Thought Content: "Thinking about discharge". Cognition: A&O X3. Insight: Poor. Judgment: Poor. Interventions PRN's used: Ativan. Therapeutic interventions: Maintained a safe and therapeutic environment, provided clear and simple instructions, Active listening, encouraged independent performance of ADLs, provided positive encouragement, monitored behaviors and need for intervention, maintained Q15min safety checks, medication education, administration, and monitoring for effects. Restraints/seclusion/emergency medication: N/A Justification of Continued Inpatient Treatment: Pt. continues to require a safe and supportive environment and medication adjustments in progress.
[2019-09-06 07:29] VITALS: BP 100/59
[2019-09-06] MEDS: docusate sod 100mg capsule PO SCH ×2 (08:17→21:22)
[2019-09-06] MEDS: DOXYCYCLINE 100MG CAPSULE PO SCH (08:17)
[2019-09-06] MEDS: CLOZAPINE 25 MG oral disintegrating tablet PO SCH ×2 (08:17→12:31)
[2019-09-06] MEDS: sennosides 8.6mg tablet PO SCH ×2 (08:17→21:23)
[2019-09-06] MEDS: nicotine 21mg patch - 24 hr TD SCH (08:19)
[2019-09-06] MEDS: NICOTINE POLACRILEX 2 MG LOZENGE BC PRN ×3 (13:07→21:41)
--- NOTE | 2019-09-06 14:46 | NUR ---
Nursing Progress Note: [facility] Legal hold: 5250 Client on involuntary status for GD Report received from nurse with use of SBAR: KERMIT Guerrero Why are they here: Patient had been discharged previously with follow up at [facility] Team. Upon assessment by the [facility], it was determined patient was not able to obtain, food, long term, or clothing and a 5150 for GD was written. Patient returned within hours of discharge. At time of return patient denied any symptoms related to his mental illness diagnosis of Schizophrenia. He continues to present with cognitive impairment which impedes his ability to care of himself, and requires multiple supports and external structures. Assessment What has happened this shift: Up for breakfast. Interacting positively with others on the unit and staff. Compliant with medications. Participated in groups, denies any audio/visual hallucinations. No observed response to internal stimuli, out of room most of the day participating in unit activities and walking in hallway. S/I, H/I: Denies. A/VH: Denies. Sleep: 5.0 ADL's: Independent. Group attendance: Yes Were meds taken: Yes. Any med S/E: None noted or reported. Mental Status Exam Appearance: Clean well groomed in street clothes Eye contact: direct when talking Behavior: calm, cooperative Speech: Normal rate and tone. Mood: euthymic, pleasant Affect: Congruent with mood Thought process: [place] Thought Content: "Thinking about discharge". Cognition: A&O X3. Insight: Poor. Judgment: Poor. Interventions PRN's used: Therapeutic interventions: Maintained a safe and therapeutic environment, provided clear and simple instructions, Active listening, encouraged independent performance of ADLs, provided positive encouragement, monitored behaviors and need for intervention, maintained Q15min safety checks, medication education, administration, and monitoring for effects. Restraints/seclusion/emergency medication: N/A Justification of Continued Inpatient Treatment: Pt. continues to require a safe and supportive environment and medication adjustments in progress.
[2019-09-06] MEDS: LORazepam 1 MG tablet PO PRN (18:08)
[2019-09-06] MEDS: hydrOXYzine 25 MG tablet PO PRN (19:19)
--- NOTE | 2019-09-06 19:45 | NUR ---
Nursing Note: Dr. Mahmood notified of pt's increased pulse rate. Obtained order for Propranolol 10mg now and then 10mg TID. Continued to monitor and pt's V/S WNL, will endorse to AM shift. Pt. reports understanding.
[2019-09-06] MEDS ORDERED: propranolol 10mg tablet PO ONE (20:10)
[2019-09-06 20:33] VITALS: BP 130/82
[2019-09-06 20:45] VITALS: BP 150/70
[2019-09-06] MEDS ORDERED: propranolol 10mg tablet PO SCH (21:00)
[2019-09-06] MEDS: clozapine 25mg tablet PO SCH (21:23)
[2019-09-06] MEDS: clozapine 100mg tablet PO SCH (21:23)
[2019-09-06] MEDS: sertraline 25mg tablet PO SCH (21:24)
[2019-09-06 21:45] VITALS: BP 140/80
--- NOTE | 2019-09-07 00:13 | NUR ---
Nursing Progress Note: Legal hold:5250 Client on involuntary status for GD Report received from nurse with use of SBAR: LUIS FERNANDO Nielson Why are they here: Patient had been discharged previously with follow up at [facility] Team. Upon assessment by the [facility], it was determined patient was not able to obtain, food, long-term, or clothing and a 5150 for GD was written. Patient returned within hours of discharge. At time of return patient denied any symptoms related to his mental illness diagnosis of Schizophrenia. He continues to present with cognitive impairment which impedes his ability to care of himself, and requires multiple supports and external structures. Assessment What has happened this shift: Pt. up pacing in the hallway at the beginning of the shift, upon seeing this feature writer he smiles and gives an appropriate greeting. Pt. denies anxiety, however presents as restless, slightly anxious, and pulse is elevated (see previous note). PRN Atrax administered, and pt. then sitting in Recreation Room watching a movie and interacting minimally with other. 1:1 completed later, pt. presents as calm, V/S WNL, and he denies any MH s/s. Pt. does not appear to be internally preoccupied, and no delusional statements made this shift. When this feature writer questioned pt. regarding conservatorship and plans for discharge, he stated appropriately, "I have court on the , and then we'll see where I go from there." S/I, H/I: Denies A/VH: Denies, does not appear to be responding to internal stimuli during the shift Sleep: Pt. reports he has been sleeping well ADL's: Requires some prompting and direction from staff Group attendance: Pt reports he attends groups Were meds taken: Yes Any med S/E: None Mental Status Exam Appearance: Presents with a shaved head, and appropriately dressed in hospital attire Eye contact: Good Behavior: Cooperative, anxious/restless, and guarded (child-like) Speech: Soft, responds only to questions Mood: Pleasant Affect: Blunted Thought process: Poverty of thought with disorganization at times Thought Content: Goal oriented, WNL Cognition: A&O X4 Insight: Poor Judgment: Poor Interventions PRN's used: Atrax and Nicotine Lozenge Therapeutic interventions: Ensured contract for safety, maintained a safe and therapeutic environment, provided clear and simple instructions, encouraged independent performance of ADLs, provided positive encouragement, monitored behaviors and need for intervention, monitored V/S and obtained new order for Propranolol TID r/t tachycardia, and maintained Q 15 min safety checks. Restraints/seclusion/emergency medication: N/A Justification of Continued Inpatient Treatment: Pt. continues to require a safe and supportive and is unable to provide for his basic needs independently. Per Dr. Mahmood, the [facility] will conserve him.
[2019-09-07 07:13] VITALS: BP 117/66
[2019-09-07] MEDS ORDERED: propranolol 10mg tablet PO SCH ×4 (08:00→15:00)
[2019-09-07] MEDS: DOXYCYCLINE 100MG CAPSULE PO SCH (08:40)
[2019-09-07] MEDS: CLOZAPINE 25 MG oral disintegrating tablet PO SCH ×2 (08:40→13:19)
[2019-09-07] MEDS: propranolol 10mg tablet PO SCH ×3 (08:40→21:01)
[2019-09-07] MEDS: sennosides 8.6mg tablet PO SCH ×2 (08:40→20:34)
[2019-09-07] MEDS: docusate sod 100mg capsule PO SCH ×2 (08:40→20:34)
[2019-09-07] MEDS: nicotine 21mg patch - 24 hr TD SCH (08:40)
--- NOTE | 2019-09-07 13:56 | NUR ---
Reassessment: Great appetite, PO 100% regular diet meeting needs. LBM . TG 203 on admit would benefit from anti-hyperlipidemic per MD approval. No other nutrition concerns at this time. Will continue to monitor. Rec: 1. continue regular diet 2. anti-hyperlipidemic w/ TG 203 per MD approval 3. wt per rx Addendum: 09/07/19 at [address] Amended: Links added.
--- NOTE | 2019-09-07 16:29 | NUR ---
Nursing Progress Note: Legal hold: 5250 Client on involuntary status for GD Report received from nurse with use of SBAR: Why are they here: Patient had been discharged previously with follow up at [facility]. [facility], it was determined patient was not able to obtain, food, senior living, or clothing and a 5150 for GD was written. Patient returned within hours of discharge. At time of return patient denied any symptoms related to his mental illness diagnosis of Schizophrenia. He continues to present with cognitive impairment which impedes his ability to care of himself, and requires multiple supports and external structures. Assessment What has happened this shift: Received pt asleep in bed w/o distress at beginning of shift. Pt awoke for breakfast and took AM meds w/o issue. Attended all meals and kept to himself. He was pleasant and coopoerative, but isolated and spent much of the day in his room. Took naps throughout the day. S/I, H/I: Denies A/VH: Denies Sleep: napped throyghout the day. ADL's: Requires some prompting Group attendance: No Were meds taken: Yes Any med S/E: None noted or reported Mental Status Exam Appearance: Neat and clean in green scrubs Eye contact: Direct Behavior: Pleasant and cooperative Speech: Minimal Mood: Euthemic Affect: Congruent with mood Thought process: Poverty of thought Thought Content: Unable to assess, pt did not speak much. Cognition: A&O X3 Insight: Poor Judgment: Poor Interventions PRN's used: none Therapeutic interventions: Maintained a safe and therapeutic environment, provided clear and simple instructions, Active listening, encouraged independent performance of ADLs, provided positive encouragement, monitored behaviors and need for intervention, maintained Q15min safety checks, medication education, administration, and monitoring for effects. Restraints/seclusion/emergency medication: N/A Justification of Continued Inpatient Treatment: Pt. continues to require a safe and supportive environment and medication adjustments in progress.
[2019-09-07] MEDS: NICOTINE POLACRILEX 2 MG LOZENGE BC PRN (16:53)
[2019-09-07 19:00] VITALS: BP 120/73
[2019-09-07] MEDS: sertraline 25mg tablet PO SCH (20:35)
[2019-09-07] MEDS: clozapine 25mg tablet PO SCH (20:35)
[2019-09-07] MEDS: clozapine 100mg tablet PO SCH (20:35)
[2019-09-07] MEDS ORDERED: propranolol 10mg tablet PO ONE (21:00)
--- NOTE | 2019-09-08 00:41 | NUR ---
Nursing Progress Note: Legal hold: Tcon Client on involuntary status for GD Report received from LUIS FERNANDO Borges with use of SBAR: Why are they here: Patient had been discharged previously with follow up at [facility] Team. Upon assessment by the [facility], it was determined patient was not able to obtain, food, alf, or clothing and a 5150 for GD was written. Patient returned within hours of discharge. At time of return patient denied any symptoms related to his mental illness diagnosis of Schizophrenia. He continues to present with cognitive impairment which impedes his ability to care of himself, and requires multiple supports and external structures. Assessment What has happened this shift: Pt was in his room resting during shift change. Pt is cooperative during 1:1 physical assessment and was compliant with all his HS meds. Pt denies hallucinations of any kind and did not make any delusional statements per this shift. Pt states that his overall mood has been "in between. I feel happy sometimes but confused other times." When asked why he feels confused, he stated that he is confused about why he is still here. He feels frustrated because he wouldn't be here if his living situation wasn't so complicated. Pt states that he wants to find out a way to "make it out there." Pt remained isolative in his room for most of the evening and slept for most of the night. Pt did complain of some heartburn and this bid writer provided recommendations on how to avoid that. S/I, H/I: Denies A/VH: Denies Sleep: Currently sleeping, see sleep assessment for total hours. ADL's: Requires some prompting Group attendance: None during overnight cashier Were meds taken: Yes Any med S/E: None noted or reported Mental Status Exam Appearance: Neat and clean in green scrubs Eye contact: Direct Behavior: Pleasant and cooperative Speech: Normal rate and rhythm, minimal, only answers to questions Mood: depressed, confused, has a downcast expression Affect: Flat Thought process: Thought blocking Thought Content: Confused about why he is here again Cognition: A&O X3 Insight: Poor Judgment: Poor Interventions PRN's used: none Therapeutic interventions: Maintained a safe and therapeutic environment, provided clear and simple instructions, Active listening, encouraged independent performance of ADLs, provided positive encouragement, monitored behaviors and need for intervention, maintained Q15min safety checks, medication education, administration, and monitoring for effects. Restraints/seclusion/emergency medication: N/A Justification of Continued Inpatient Treatment: Pt. continues to require a safe and supportive environment and medication adjustments in progress.
[2019-09-08 08:00] VITALS: BP 109/60
[2019-09-08] MEDS: DOXYCYCLINE 100MG CAPSULE PO SCH (08:17)
[2019-09-08] MEDS: sennosides 8.6mg tablet PO SCH ×2 (08:17→21:46)
[2019-09-08] MEDS: docusate sod 100mg capsule PO SCH ×2 (08:17→21:46)
[2019-09-08] MEDS: propranolol 10mg tablet PO SCH ×3 (08:18→21:46)
[2019-09-08] MEDS: CLOZAPINE 25 MG oral disintegrating tablet PO SCH ×2 (08:18→12:13)
[2019-09-08] MEDS: nicotine 21mg patch - 24 hr TD SCH (08:20)
[2019-09-08 13:58] VITALS: BP 107/61
[2019-09-08] MEDS: NICOTINE POLACRILEX 2 MG LOZENGE BC PRN ×3 (14:06→21:46)
--- NOTE | 2019-09-08 14:14 | NUR ---
Nursing Progress Note: Legal hold: TCON Client on involuntary status for GD Report received from nurse with use of SBAR: Why are they here: Patient had been discharged previously with follow up at [facility] Team. Upon assessment by the [facility], it was determined patient was not able to obtain, food, long-term, or clothing and a 5150 for GD was written. Patient returned within hours of discharge. At time of return patient denied any symptoms related to his mental illness diagnosis of Schizophrenia. He continues to present with cognitive impairment which impedes his ability to care of himself, and requires multiple supports and external structures. Assessment What has happened this shift: Pt went back to bed for awhile after breakfast, observed pt asleep and snoring loudly. Pt states that he is doing "good." Pt denies depression, anxiety, SI/HI/AH/VH. When went to bring pt his 1500 dose of propranolol he stated, "I think that propranolol is making me short of breath." Lung sounds were clear, O2 sat WNL, pt did not appear short of breath. Medication education provided on action of propranolol in helping lower his pulse as well as helping with anxiety. Pt stated that he feels a burning sensation sometimes too under his left ribcage area. Asked him if perhaps he may have pulled something, encouraged stretching. Pt brightened, beamed a wide smile and thanked this RN. Pt attended morning group but stated he was too tired to attend afternoon group. Pt requested a prn nicotine lozenge at 1406. S/I, H/I: Pt denies A/VH: Pt denies Sleep: Pt reported sleeping well, napped for a bit after breakfast. ADL's: Independent Group attendance: yes Were meds taken: Yes Any med S/E: Pt reported that he thought the propranolol was making him feel SOB. Mental Status Exam Appearance: Neat and clean Eye contact: Good Behavior: Pleasant, cooperative, calm Speech: Clear, audible, minimal; poverty of speech Mood: "Good." Affect: Blunted with periods of marked brightening. Thought process: Focus on the somatic, concrete Thought Content: Wonders if propranolol is causing him to feel SOB, concerned about an intermittent burning under his left ribcage. Cognition: A/O X 4 Insight: Poor Judgment: Poor Interventions PRN's used: Nicotine lozenge Therapeutic interventions: 1:1 assessment, monitored behaviors and need for intervention, encouragement to express thoughts and feelings, active listening, therapeutic conversation, medication administration/education/monitoring, positive reinforcement, encouragement to attend groups, Q 15 min safety checks. Restraints/seclusion/emergency medication: N/A Justification of Continued Inpatient Treatment: Pt is gravely disabled, he is on a TCON, he continues to need medication adjustment and monitoring and a safe and supportive environment. Addendum: 09/08/19 at 1807 by Elisabet Pfeiffer" Woodman GOULD Observed pt pacing in the hallway clapping his hands together loudly and sporadically while talking to himself. Pt sounded as though he was becoming agitated heard him talking to a "black bitch" not present. Asked pt if he was hearing voices. Pt smiled and replied, "yeah, a little bit, how did you know?" Offered pt something for anxiety, he was agreeable. Administered Atarax 50 mg.
[2019-09-08] MEDS: hydrOXYzine 25 MG tablet PO PRN (18:04)
[2019-09-08 19:50] VITALS: BP 125/75
[2019-09-08] MEDS: clozapine 100mg tablet PO SCH (21:46)
[2019-09-08] MEDS: sertraline 25mg tablet PO SCH (21:47)
[2019-09-08] MEDS: clozapine 25mg tablet PO SCH (21:47)
[2019-09-08] MEDS: LORazepam 1 MG tablet PO PRN (21:59)
--- NOTE | 2019-09-09 00:27 | NUR ---
Nursing Progress Note: Legal hold: Tcon Client on involuntary status for GD Report received from KERMIT Fox with use of SBAR: Why are they here: Patient had been discharged previously with follow up at [facility] Team. Upon assessment by the [facility], it was determined patient was not able to obtain, food, chcf, or clothing and a 5150 for GD was written. Patient returned within hours of discharge. At time of return patient denied any symptoms related to his mental illness diagnosis of Schizophrenia. He continues to present with cognitive impairment which impedes his ability to care of himself, and requires multiple supports and external structures. Assessment What has happened this shift: Pt was pacing down the halls during shift change, making a lot of delusional statements, but appeared to be in a brighter mood. Pt later on went to the TV room and attended evening snack. States that he had a pretty good day. He does enforce anxiety and rates it at a 7/10. An Ativan was given with his HS meds. He was cooperative during 1:1 physical assessment and took all his HS meds without any issues. When asked what brought up his anxiety he states "just not knowing where I'm going to go from here and the fact that I have court soon. I don't like going to court." Denies any A/H, V/H but appears to be internally occupied. Has full on conversations with people that are not there. Pt also requested a nicotine lozenge. Nicotine patch was removed. After taking his HS meds, pt continued to pace the halls for some time and stated that he couldn't go to sleep. At around 2230 pt went to his room and fell asleep. S/I, H/I: Denies A/VH: Denies but appears internally occupied Sleep: Currently sleeping, see sleep assessment for total hours. ADL's: Requires some prompting Group attendance: None during night coordinator Were meds taken: Yes Any med S/E: None noted or reported Mental Status Exam Appearance: Somewhat disheveled, shirt and scrub pants dirty Eye contact: Direct Behavior: Pleasant and cooperative, anxious at times Speech: Normal rate and rhythm, minimal, only answers to questions Mood: "good" Affect: Bright Thought process: Poverty of thought Thought Content: Placement Cognition: A&O X3 Insight: Poor Judgment: Poor Interventions PRN's used: none Therapeutic interventions: Maintained a safe and therapeutic environment, provided clear and simple instructions, Active listening, encouraged independent performance of ADLs, provided positive encouragement, monitored behaviors and need for intervention, maintained Q15min safety checks, medication education, administration, and monitoring for effects. Restraints/seclusion/emergency medication: N/A Justification of Continued Inpatient Treatment: Pt. continues to require a safe and supportive environment and medication adjustments in progress.
[2019-09-09 06:44] LABS: BASOPHILS % (AUTO) 0.7 % (0-1); EOSINOPHILS # (AUTO) 0.2 X10'3 (0-0.9); EOSINOPHILS % (AUTO) 2.9 % (0-6); HEMOGLOBIN 14.1 g/dl (14.0-17.9); LYMPHOCYTES # (AUTO) 2.4 X10'3 (1.1-4.8); LYMPHOCYTES % (AUTO) 32.9 % (21-51); MEAN CORPUSCULAR HEMOGLOBIN 28.5 PG (27.0-31.0); MEAN CORPUSCULAR HGB CONC 33.6 g/dL (33.0-36.5); MEAN CORPUSCULAR VOLUME 84.7 FL (78-98); MEAN PLATELET VOLUME 7.9 FL (7.4-10.4); MONOCYTES # (AUTO) 0.8 X10'3 (0-0.9); MONOCYTES % (AUTO) 11.7 % (2-12); NEUTROPHILS # (AUTO) 3.8 X10'3 (1.8-7.7); NEUTROPHILS % (AUTO) 51.8 % (42-75); PLATELET COUNT 206 X10'3 (140-440); RED BLOOD COUNT 4.95 X10'6 (4.70-6.10); RED CELL DISTRIBUTION WIDTH 13.4 % (11.5-14.5); WHITE BLOOD COUNT 7.3 X10'3 (4.5-11.0)
[2019-09-09 07:10] VITALS: BP 116/62
[2019-09-09] MEDS: CLOZAPINE 25 MG oral disintegrating tablet PO SCH ×2 (08:01→11:57)
[2019-09-09] MEDS: sennosides 8.6mg tablet PO SCH ×2 (08:01→20:42)
[2019-09-09] MEDS: DOXYCYCLINE 100MG CAPSULE PO SCH (08:01)
[2019-09-09] MEDS: docusate sod 100mg capsule PO SCH ×2 (08:01→20:41)
[2019-09-09] MEDS: propranolol 10mg tablet PO SCH ×3 (08:01→20:41)
[2019-09-09] MEDS: nicotine 21mg patch - 24 hr TD SCH (08:04)
--- NOTE | 2019-09-09 14:15 | NUR ---
Nursing Progress Note: Legal hold: TCON Client on involuntary status for GD Report received from nurse Lockhart with use of SBAR: Why are they here: Patient had been discharged previously with follow up at [facility] Team. Upon assessment by the [facility] [place] [place], it was determined patient was not able to obtain, food, alf, or clothing and a 5150 for GD was written. Patient returned within hours of discharge. At time of return patient denied any symptoms related to his mental illness diagnosis of Schizophrenia. He continues to present with cognitive impairment which impedes his ability to care of himself, and requires multiple supports and external structures. Assessment What has happened this shift: Pt pleasant and cooperative with meds and unit procedures. Pt socializes with select peers. Pt denied depression, anxiety SI/HI/AH/VH, stated, "I'm just tired." Pt does not appear to be responding to internal stimuli this shift. S/I, H/I: Pt denies A/VH: Pt denies Sleep: Pt slept 8.75 hours per noc shift report. ADL's: Independent Group attendance: No group today. Were meds taken: Yes Any med S/E: None noted or reported. Mental Status Exam Appearance: Neat and clean Eye contact: Good Behavior: Pleasant, cooperative, calm Speech: Clear, audible, minimal; poverty of speech Mood: "Okay" Affect: Blunted with periods of marked brightening. Thought process: Linear Thought Content: Feels tired. Cognition: A/O X 4 Insight: Poor Judgment: Poor Interventions PRN's used: None Therapeutic interventions: 1:1 assessment, monitored behaviors and need for intervention, encouragement to express thoughts and feelings, active listening, therapeutic conversation, medication administration/education/monitoring, positive reinforcement, Q 15 min safety checks. Restraints/seclusion/emergency medication: N/A Justification of Continued Inpatient Treatment: Pt is gravely disabled, he is on a TCON, he continues to need medication adjustment and monitoring and a safe and supportive environment. Addendum: 09/09/19 at 1433 by Elisabet Delarosa RN (Lee) Pt has a new order for Protonix 40 mg PO AC breakfast. Addendum: 09/10/19 at 1337 by Elisabet Delarosa RN (Lee) Held 1500 dose of propranolol 10 mg per parameters, BP was 94/52.
[2019-09-09 14:39] VITALS: BP 94/52
[2019-09-09] MEDS: NICOTINE POLACRILEX 2 MG LOZENGE BC PRN ×2 (17:51→22:28)
[2019-09-09 19:52] VITALS: BP 127/81
[2019-09-09] MEDS: sertraline 25mg tablet PO SCH (20:41)
[2019-09-09] MEDS: clozapine 100mg tablet PO SCH (20:42)
[2019-09-09] MEDS: clozapine 25mg tablet PO SCH (20:42)
--- NOTE | 2019-09-10 00:36 | NUR ---
Nursing Progress Note: Legal hold: Tcon Client on involuntary status for GD Report received from KERMIT Fox with use of SBAR: Why are they here: Patient had been discharged previously with follow up at [facility]. Upon assessment by the [facility], it was determined patient was not able to obtain, food, retirement, or clothing and a 5150 for GD was written. Patient returned within hours of discharge. At time of return patient denied any symptoms related to his mental illness diagnosis of Schizophrenia. He continues to present with cognitive impairment which impedes his ability to care of himself, and requires multiple supports and external structures. Assessment What has happened this shift: Pt was in recreation room during shift change. Pt was smiling and said he had a pretty good day. He was cooperative during 1:1 physical assessment and took all of his HS med without any issues. Pt denies any auditory or visual hallucinations and did not make any delusional statements per this shift. Did not appear to be internally occupied. Pt was not pacing the halls as usual and maintained isolative most of the time. Pt c/o pain under his ribs "like someone is pulling on my muscles there." Offered pt something for the pain but he declined. Pt did request a nicotine lozenge. His room had stuff all over the floor and advised patient to clean up. His laundry was done today. Pt seems to be wearing the same clothes as previous days. S/I, H/I: Denies A/VH: Denies Sleep: Currently sleeping, see sleep assessment for total hours. ADL's: Requires some prompting Group attendance: None during wash worker Were meds taken: Yes Any med S/E: None noted or reported Mental Status Exam Appearance: Somewhat disheveled, shirt and scrub pants dirty Eye contact: Direct Behavior: Pleasant and cooperative Speech: Normal rate and rhythm, minimal, only answers to questions Mood: "good" Affect: restricted Thought process: Circumstantial Thought Content: not knowing what's going on with him Cognition: A&O X3 Insight: Poor Judgment: Poor Interventions PRN's used: Nicotine lozenge Therapeutic interventions: Maintained a safe and therapeutic environment, provided clear and simple instructions, Active listening, encouraged independent performance of ADLs, provided positive encouragement, monitored behaviors and need for intervention, maintained Q15min safety checks, medication education, administration, and monitoring for effects. Restraints/seclusion/emergency medication: N/A Justification of Continued Inpatient Treatment: Pt. continues to require a safe and supportive environment and medication adjustments in progress.
[2019-09-10 07:20] VITALS: BP 108/59
[2019-09-10] MEDS: sennosides 8.6mg tablet PO SCH ×2 (08:13→20:05)
[2019-09-10] MEDS: DOXYCYCLINE 100MG CAPSULE PO SCH (08:13)
[2019-09-10] MEDS: CLOZAPINE 25 MG oral disintegrating tablet PO SCH ×2 (08:14→12:14)
[2019-09-10] MEDS: propranolol 10mg tablet PO SCH ×3 (08:14→20:05)
[2019-09-10] MEDS: docusate sod 100mg capsule PO SCH ×2 (08:14→20:04)
[2019-09-10] MEDS: pantoprazole 40mg Tablet.DR PO SCH (08:14)
[2019-09-10] MEDS: nicotine 21mg patch - 24 hr TD SCH (08:17)
[2019-09-10] MEDS: NICOTINE POLACRILEX 2 MG LOZENGE BC PRN ×2 (12:14→20:33)
--- NOTE | 2019-09-10 13:58 | NUR ---
Nursing Progress Note: Legal hold: TCON Client on involuntary status for GD Report received from nurse Lockhart with use of SBAR: Why are they here: Patient had been discharged previously with follow up at [facility] Team. Upon assessment by the [facility] [place], it was determined patient was not able to obtain, food, detention, or clothing and a 5150 for GD was written. Patient returned within hours of discharge. At time of return patient denied any symptoms related to his mental illness diagnosis of Schizophrenia. He continues to present with cognitive impairment which impedes his ability to care of himself, and requires multiple supports and external structures. Assessment What has happened this shift: Pt cooperative with medications and unit procedures. Pt attended group and socialized with select peers. Pt is polite and friendly, he smiles frequently while interacting with staff. Pt denies depression, anxiety, SI/HI/AH/VH. He did not appear to be responding to internal stimuli this shift. Pt requested prn nicotine lozenge at 1214. Pt was wearing his ID wristband this morning during breakfast Noted after lunch that he no longer had a wristband on. Asked pt what happened to it, he replied, "it fell off last night." Pt allowed this RN to apply a new wristband. S/I, H/I: Pt denies A/VH: Pt denies Sleep: Pt slept 7 hours per noc shift report. ADL's: Independent Group attendance: Yes Were meds taken: Yes Any med S/E: None noted or reported. Mental Status Exam Appearance: Neat and clean Eye contact: Good Behavior: Pleasant, cooperative, polite, calm Speech: Clear, audible, minimal Mood: Good Affect: Blunted with periods of marked brightening. Thought process: Linear Thought Content: Poverty of thought, not very expressive with his thoughts today. Cognition: A/O X 4 Insight: Poor Judgment: Poor Interventions PRN's used: Nicotine lozenge Therapeutic interventions: 1:1 assessment, monitored behaviors and need for intervention, encouragement to express thoughts and feelings, therapeutic conversation, medication administration/education/monitoring, positive reinforcement, Q 15 min safety checks. Restraints/seclusion/emergency medication: N/A Justification of Continued Inpatient Treatment: Pt is gravely disabled, he is on a TCON, he continues to need medication adjustment and monitoring and a safe and supportive environment, he has a hearing set for 09/26/19.
[2019-09-10 14:30] VITALS: BP 109/65
[2019-09-10 19:13] VITALS: BP 126/70
[2019-09-10] MEDS: sertraline 25mg tablet PO SCH (20:04)
[2019-09-10] MEDS: clozapine 100mg tablet PO SCH (20:05)
[2019-09-10] MEDS: clozapine 25mg tablet PO SCH (20:06)
--- NOTE | 2019-09-11 00:15 | NUR ---
Nursing Progress Note: Legal hold: TCON Client on involuntary status for GD Report received from nurse Fox with use of SBAR: Why are they here: Patient had been discharged previously with follow up at [facility] Team. Upon assessment by the [facility], it was determined patient was not able to obtain, food, longterm, or clothing and a 5150 for GD was written. Patient returned within hours of discharge. At time of return patient denied any symptoms related to his mental illness diagnosis of Schizophrenia. He continues to present with cognitive impairment which impedes his ability to care of himself, and requires multiple supports and external structures. Assessment What has happened this shift: Pt up walking the halls with a big smile at change of shift. pt is always friendly and cooperative when interacting with staff and other pt's. pt denies si/hi, a/vh, and does not appear to be responding to internal stimuli. When asked if he has any pain, pt responded "I had this sharp stabbing pain in my stomach a few days ago but it's gone now." pt is talkative but is difficult to keep focused on the conversations and is easily distracted by the tv or other pt's talking. pt attended snack and then asked for another sandwich at approx 9pm. S/I, H/I: Pt denies A/VH: Pt denies Sleep: see sleep assessment ADL's: Independent Group attendance: Yes Were meds taken: Yes Any med S/E: None noted or reported. Mental Status Exam Appearance: Neat and clean Eye contact: Good Behavior: Pleasant, cooperative, polite Speech: Clear Mood: Good Affect: Blunted with periods of marked brightening. Thought process: Linear Thought Content: Poverty of thought Cognition: A/O X 4 Insight: Poor Judgment: Poor Interventions PRN's used: Nicotine lozenge Therapeutic interventions: 1:1 assessment, monitored behaviors and need for intervention, encouragement to express thoughts and feelings, therapeutic conversation, medication administration/education/monitoring, positive reinforcement, Q 15 min safety checks. Restraints/seclusion/emergency medication: N/A Justification of Continued Inpatient Treatment: Pt is gravely disabled, he is on a TCON, he continues to need medication adjustment and monitoring and a safe and supportive environment, he has a hearing set for 09/26/19.
[2019-09-11 08:00] VITALS: BP 102/61
[2019-09-11] MEDS: DOXYCYCLINE 100MG CAPSULE PO SCH (08:43)
[2019-09-11] MEDS: docusate sod 100mg capsule PO SCH ×2 (08:43→20:20)
[2019-09-11] MEDS: sennosides 8.6mg tablet PO SCH ×2 (08:43→20:20)
[2019-09-11] MEDS: CLOZAPINE 25 MG oral disintegrating tablet PO SCH ×2 (08:43→12:56)
[2019-09-11] MEDS: propranolol 10mg tablet PO SCH ×3 (08:43→20:21)
[2019-09-11] MEDS: pantoprazole 40mg Tablet.DR PO SCH (08:43)
[2019-09-11] MEDS: nicotine 21mg patch - 24 hr TD SCH (08:45)
[2019-09-11] MEDS: NICOTINE POLACRILEX 2 MG LOZENGE BC PRN ×3 (16:41→21:22)
--- NOTE | 2019-09-11 17:15 | NUR ---
Nursing Progress Note: Legal hold: TCON Client on involuntary status for GD Report received from nurse Ifrah RN with use of SBAR: Why are they here: Patient had been discharged previously with follow up at [facility] Team. Upon assessment by the [facility] [place], it was determined patient was not able to obtain, food, long-term, or clothing and a 5150 for GD was written. Patient returned within hours of discharge. At time of return patient denied any symptoms related to his mental illness diagnosis of Schizophrenia. He continues to present with cognitive impairment which impedes his ability to care of himself, and requires multiple supports and external structures. Assessment What has happened this shift: Received pt sleeping in bed. Pt awoke for breakfast. Pt has bright affect when approached, but otherwise has a flat affect and does initiate interaction much with others. When questioned, pt denies a/v hallucinations, but appears internally preoccupied at times. Pt denies depression and S.I. Pt did not attend groups today. S/I, H/I: Pt denies A/VH: Pt denies Sleep: napping on and off today ADL's: Independent Group attendance: Yes Were meds taken: Yes Any med S/E: None noted or reported. Mental Status Exam Appearance: Neat and clean Eye contact: Good Behavior: Pleasant, cooperative, polite, calm Speech: Clear, audible, minimal Mood: Good Affect: Blunted with periods of marked brightening. Thought process: Linear Thought Content: Poverty of thought, not very expressive with his thoughts today. Cognition: A/O X 4 Insight: Poor Judgment: Poor Interventions PRN's used: Nicotine lozenge Therapeutic interventions: 1:1 assessment, monitored behaviors and need for intervention, encouragement to express thoughts and feelings, therapeutic conversation, medication administration/education/monitoring, positive reinforcement, Q 15 min safety checks. Restraints/seclusion/emergency medication: N/A Justification of Continued Inpatient Treatment: Pt is gravely disabled, he is on a TCON, he continues to need medication adjustment and monitoring and a safe and supportive environment, he has a hearing set for 09/26/19.
[2019-09-11 19:41] VITALS: BP 124/74
[2019-09-11] MEDS: clozapine 25mg tablet PO SCH (20:21)
[2019-09-11] MEDS: sertraline 25mg tablet PO SCH (20:21)
[2019-09-11] MEDS: clozapine 100mg tablet PO SCH (20:22)
--- NOTE | 2019-09-12 00:05 | NUR ---
Nursing Progress Note: Legal hold: TCON Client on involuntary status for GD Report received from nurse Dominique GOULD with use of SBAR: Why are they here: Patient had been discharged previously with follow up at [facility] Team. Upon assessment by the [facility] [place], it was determined patient was not able to obtain, food, custodial, or clothing and a 5150 for GD was written. Patient returned within hours of discharge. At time of return patient denied any symptoms related to his mental illness diagnosis of Schizophrenia. He continues to present with cognitive impairment which impedes his ability to care of himself, and requires multiple supports and external structures. Assessment What has happened this shift: Pt was pacing halls at change of shift, noticeably responding to internal stimuli. pt was observed speaking to someone not there, laughing at times, talking to the clock, stating nonsensical things. Pt spend the evening watching tv with periods of pacing the hallway. pt was cooperative for 1:1 but does not offer up much detail. pt denied hearing voices and being suicidal. pt accepted hs meds with no issues. S/I, H/I: Pt denies A/VH: Pt denies Sleep: see sleep assessment ADL's: Independent Group attendance: snack Were meds taken: Yes Any med S/E: None noted or reported. Mental Status Exam Appearance: Neat and clean Eye contact: Good Behavior: Pleasant, cooperative, polite, calm Speech: Clear, audible, minimal Mood: Good Affect: Blunted with periods of marked brightening. Thought process: Linear Thought Content: Poverty of thought Cognition: A/O X 4 Insight: Poor Judgment: Poor Interventions PRN's used: Nicotine lozenge Therapeutic interventions: 1:1 assessment, monitored behaviors and need for intervention, encouragement to express thoughts and feelings, therapeutic conversation, medication administration/education/monitoring, positive reinforcement, Q 15 min safety checks. Restraints/seclusion/emergency medication: N/A Justification of Continued Inpatient Treatment: Pt is gravely disabled, he is on a TCON, he continues to need medication adjustment and monitoring and a safe and supportive environment, he has a hearing set for 09/26/19.
--- NOTE | 2019-09-12 07:28 | NUR ---
Lillie PEREZ T[facility] office received Ct's Lillie Perez and requested a packet when Ct is ready for transfer and with a recommendation regarding the appropriate level of care. Will discuss with tx team. MATTHIEU Strange
[2019-09-12] MEDS: nicotine 21mg patch - 24 hr TD SCH (07:30)
[2019-09-12] MEDS: DOXYCYCLINE 100MG CAPSULE PO SCH (07:31)
[2019-09-12] MEDS: sennosides 8.6mg tablet PO SCH ×2 (07:31→20:12)
[2019-09-12] MEDS: docusate sod 100mg capsule PO SCH ×2 (07:31→20:11)
[2019-09-12] MEDS: propranolol 10mg tablet PO SCH ×3 (07:31→20:11)
[2019-09-12] MEDS: CLOZAPINE 25 MG oral disintegrating tablet PO SCH ×2 (07:31→12:58)
[2019-09-12] MEDS: pantoprazole 40mg Tablet.DR PO SCH (07:31)
[2019-09-12 07:37] VITALS: BP 114/72
[2019-09-12] MEDS: NICOTINE POLACRILEX 2 MG LOZENGE BC PRN (15:40)
--- NOTE | 2019-09-12 17:55 | NUR ---
Nursing Progress Note: Legal hold: TCON Client on involuntary status for GD Report received from nurse Yolanda RN with use of SBAR: Why are they here: Patient had been discharged previously with follow up at [facility] Team. Upon assessment by the [facility], it was determined patient was not able to obtain, food, mcfp, or clothing and a 5150 for GD was written. Patient returned within hours of discharge. At time of return patient denied any symptoms related to his mental illness diagnosis of Schizophrenia. He continues to present with cognitive impairment which impedes his ability to care of himself, and requires multiple supports and external structures. Assessment What has happened this shift: Patient awake at shift change watching t.v. in rec room. Patient has attended both groups today, stating that he enjoyed the loss and grief class very much. S/I, H/I: Pt denies A/VH: Pt denies Sleep: 6.75 hrs NOC, napped after meals. ADL's: Independent Group attendance: Yes Were meds taken: Yes Any med S/E: None noted or reported. Mental Status Exam Appearance: Neat and clean wearing personal attire. Eye contact: Good Behavior: Calm and cooperative. Speech: Clear, audible, minimal Mood: Euthymic Affect: Blunted Thought process: Linear. Circumstantial. Thought Content: Keeping busy with activities on unit. Cognition: A/O X 4 Insight: Poor Judgment: Poor Interventions PRN's used: Nicotine lozenge Therapeutic interventions: 1:1 assessment, monitored behaviors and need for intervention, encouragement to express thoughts and feelings, therapeutic conversation, medication administration/education/monitoring, positive reinforcement, Q 15 min safety checks. Restraints/seclusion/emergency medication: N/A Justification of Continued Inpatient Treatment: Pt is gravely disabled, he is on a TCON, he continues to need medication adjustment and monitoring and a safe and supportive environment, he has a hearing set for 09/26/19.
[2019-09-12 20:00] VITALS: BP 114/73
[2019-09-12] MEDS: clozapine 100mg tablet PO SCH (20:10)
[2019-09-12] MEDS: sertraline 25mg tablet PO SCH (20:11)
[2019-09-12] MEDS: clozapine 25mg tablet PO SCH (20:11)
[2019-09-12] MEDS: LORazepam 1 MG tablet PO PRN (21:54)
--- NOTE | 2019-09-12 23:15 | NUR ---
Nursing Progress Note: Legal hold: TCON Client on involuntary status for GD Report received from nurse Dominique GOULD with use of SBAR: Why are they here: Patient had been discharged previously with follow up at [facility] Team. Upon assessment by the [facility], it was determined patient was not able to obtain, food, residential, or clothing and a 5150 for GD was written. Patient returned within hours of discharge. At time of return patient denied any symptoms related to his mental illness diagnosis of Schizophrenia. He continues to present with cognitive impairment which impedes his ability to care of himself, and requires multiple supports and external structures. Assessment What has happened this shift: Pt was in group room watching tv at change of shift and continued watching tv until bed time. pt was cooperative with 1;1 but still doesn't offer much info on how he's doing. He denies si/hi and hallucinations, and pt was not observed responding to internal stimuli. Pt had a difficult time going to sleep and was seen pacing the hallway before asking for something to help him "relax." pt was given 1 mg ativan and was able to sleep. S/I, H/I: Pt denies A/VH: Pt denies Sleep: see sleep assessment ADL's: Independent Group attendance: snack Were meds taken: Yes Any med S/E: None noted or reported. Mental Status Exam Appearance: Neat and clean Eye contact: Good Behavior: Pleasant, cooperative, polite, calm Speech: Clear, audible, minimal Mood: Good Affect: Blunted with periods of marked brightening. Thought process: Linear Thought Content: Poverty of thought Cognition: A/O X 4 Insight: Poor Judgment: Poor Interventions PRN's used: Nicotine lozenge Therapeutic interventions: 1:1 assessment, monitored behaviors and need for intervention, encouragement to express thoughts and feelings, therapeutic conversation, medication administration/education/monitoring, positive reinforcement, Q 15 min safety checks. Restraints/seclusion/emergency medication: N/A Justification of Continued Inpatient Treatment: Pt is gravely disabled, he is on a TCON, he continues to need medication adjustment and monitoring and a safe and supportive environment, he has a hearing set for 09/26/19.
[2019-09-13 07:00] VITALS: BP 137/69
[2019-09-13] MEDS: pantoprazole 40mg Tablet.DR PO SCH (08:11)
[2019-09-13] MEDS: CLOZAPINE 25 MG oral disintegrating tablet PO SCH ×2 (08:11→13:14)
[2019-09-13] MEDS: sennosides 8.6mg tablet PO SCH ×2 (08:12→21:07)
[2019-09-13] MEDS: DOXYCYCLINE 100MG CAPSULE PO SCH (08:12)
[2019-09-13] MEDS: nicotine 21mg patch - 24 hr TD SCH (08:12)
[2019-09-13] MEDS: propranolol 10mg tablet PO SCH ×3 (08:12→21:07)
[2019-09-13] MEDS: docusate sod 100mg capsule PO SCH ×2 (08:12→21:06)
[2019-09-13] MEDS: NICOTINE POLACRILEX 2 MG LOZENGE BC PRN ×3 (12:26→19:26)
--- NOTE | 2019-09-13 17:09 | NUR ---
Nursing Progress Note: Legal hold: TCON Client on involuntary status for GD Report received from nurse Yolanda RN with use of SBAR: Why are they here: Patient had been discharged previously with follow up at [facility] Team. Upon assessment by the [facility], it was determined patient was not able to obtain, food, senior living, or clothing and a 5150 for GD was written. Patient returned within hours of discharge. At time of return patient denied any symptoms related to his mental illness diagnosis of Schizophrenia. He continues to present with cognitive impairment which impedes his ability to care of himself, and requires multiple supports and external structures. Assessment What has happened this shift: Patient received his T-Con paperwork in the mail today. Patient reports that Dr. Treviño and Shirin told him that they are already looking for placement for him. Patient is agreeable to having a roof over his head and to get off the streets. Patient seems to be peaceful about this disposition. S/I, H/I: Pt denies A/VH: Pt denies Sleep: 6.75 hrs NOC, napped after breakfast. ADL's: Independent Group attendance: Yes Were meds taken: Yes Any med S/E: None noted or reported. Mental Status Exam Appearance: Large male, clean and neat in personal attire. Eye contact: Good Behavior: Calm and cooperative. Speech: Clear, audible, minimal Mood: Euthymic Affect: Blunted Thought process: Linear. Circumstantial. Thought Content: Conservatorship and discharge destination. Cognition: A/O X 4 Insight: Poor Judgment: Poor Interventions PRN's used: Nicotine lozenge Therapeutic interventions: 1:1 assessment, monitored behaviors and need for intervention, encouragement to express thoughts and feelings, therapeutic conversation, medication administration/education/monitoring, positive reinforcement, Q 15 min safety checks. Restraints/seclusion/emergency medication: N/A Justification of Continued Inpatient Treatment: Pt is gravely disabled, he is on a TCON, he continues to need medication adjustment and monitoring and a safe and supportive environment, he has a hearing set for 09/26/19.
[2019-09-13 20:00] VITALS: BP 122/79
[2019-09-13 21:00] VITALS: BP 145/84
[2019-09-13] MEDS: clozapine 25mg tablet PO SCH (21:07)
[2019-09-13] MEDS: sertraline 25mg tablet PO SCH (21:07)
[2019-09-13] MEDS: clozapine 100mg tablet PO SCH (21:07)
[2019-09-13] MEDS: LORazepam 1 MG tablet PO PRN (22:27)
--- NOTE | 2019-09-14 01:08 | NUR ---
Nursing Progress Note: Legal hold: TCon Client on involuntary status for GD Report received from nurse with use of SBAR: LUIS FERNANDO Cary Why are they here: Patient had been discharged previously with follow up at [facility] Team. [place] [facility] it was determined patient was not able to obtain, food, fpc, or clothing and a 5150 for GD was written. Patient returned within hours of discharge. At time of return patient denied any symptoms related to his mental illness diagnosis of Schizophrenia. He continues to present with cognitive impairment which impedes his ability to care of himself, and requires multiple supports and external structures. Assessment What has happened this shift: Pt. up watching TV in the Recreation Room at the beginning of the shift, and interacting minimally with others. Upon seeing this conventional underwriter he smiles and gives an animated greeting. Pt. attends snack and 1:1 completed, pt. presents as cooperative, however remains guarded in conversation. He reports that he is aware that he is going to be conserved, and states that he feels alright with this. Pt. denies any ongoing anxiety or depression and appears animated in a child-like way. No delusional statements made this shift, and pt. does not exhibit any internal preoccupation. Pt. requests PRN anxiolytic at HS r/t restlessness causing him some insomnia, PRN Ativan administered with effectiveness. S/I, H/I: Denies A/VH: Denies, does not appear to be responding to internal stimuli during the shift Sleep: Pt. requests PRN anxiolytic at HS r/t restlessness causing him some insomnia, administered with effectiveness ADL's: Requires some prompting and direction from staff Group attendance: Pt reports he attends groups Were meds taken: Yes Any med S/E: None Mental Status Exam Appearance: Present as neat, and appropriately dressed in hospital attire Eye contact: Good Behavior: Cooperative and guarded. Child-like animation Speech: Soft, responds only to questions Mood: Pleasant Affect: Animated Thought process: Poverty of thought Thought Content: Goal oriented, WNL Cognition: A&O X4 Insight: Poor Judgment: Poor to fair Interventions PRN's used: Ativan and Nicotine Lozenge Therapeutic interventions: Ensured contract for safety, maintained a safe and therapeutic environment, provided clear and simple instructions, monitored behaviors and need for intervention, encouraged independent performance of ADLs, and maintained Q 15 min safety checks. Restraints/seclusion/emergency medication: N/A Justification of Continued Inpatient Treatment: Pt. continues to require a safe and supportive and is unable to provide for his basic needs independently. Per Dr. Treviño, he is at baseline.
[2019-09-14 07:47] VITALS: BP 103/62
[2019-09-14] MEDS: pantoprazole 40mg Tablet.DR PO SCH (08:23)
[2019-09-14] MEDS: DOXYCYCLINE 100MG CAPSULE PO SCH (08:23)
[2019-09-14] MEDS: CLOZAPINE 25 MG oral disintegrating tablet PO SCH ×2 (08:23→13:04)
[2019-09-14] MEDS: docusate sod 100mg capsule PO SCH ×2 (08:23→20:07)
[2019-09-14] MEDS: sennosides 8.6mg tablet PO SCH ×2 (08:23→20:07)
[2019-09-14] MEDS: propranolol 10mg tablet PO SCH ×3 (08:23→20:07)
[2019-09-14] MEDS: nicotine 21mg patch - 24 hr TD SCH (08:26)
--- NOTE | 2019-09-14 11:57 | NUR ---
Reassessment: PO intake continues to be good, avg 100% regular diet meeting needs. LB 09/13. No nutrition interventions at this time. Will continue to monitor. Rec: 1. continue regular diet 2. routine bowel care 3. wt per rx Addendum: 09/14/19 at [address] Amended: Links added. Addendum: 09/14/19 at [address] RD agree with note
[2019-09-14] MEDS: NICOTINE POLACRILEX 2 MG LOZENGE BC PRN ×4 (12:29→22:16)
[2019-09-14] MEDS: acetaminophen 325mg tablet PO PRN (13:20)
--- NOTE | 2019-09-14 17:01 | NUR ---
Nursing Progress Note: Legal hold: TCON Client on involuntary status for GD Report received from nurse Yolanda GOULD with use of SBAR: Why are they here: Patient had been discharged previously with follow up at [facility] Team. Upon assessment by the [facility], it was determined patient was not able to obtain, food, halfway, or clothing and a 5150 for GD was written. Patient returned within hours of discharge. At time of return patient denied any symptoms related to his mental illness diagnosis of Schizophrenia. He continues to present with cognitive impairment which impedes his ability to care of himself, and requires multiple supports and external structures. Assessment What has happened this shift: Received pt sleeping in bed. Pt awoke for breakfast. Pt has bright affect when approached, but otherwise has a flat affect and does initiate interaction much with others. Pt did attend groups today, but was not really vocal during group - participated, but didnt talk much. Pt did request nicotine lozenge and stated he was feeling daja anxious Pt denies S.I. And denies a/v hallucinations, but appears internally preoccupied at times. S/I, H/I: Pt denies A/VH: Pt denies Sleep: napping on and off today ADL's: Independent Group attendance: Yes Were meds taken: Yes Any med S/E: None noted or reported. Mental Status Exam Appearance: Neat and clean Eye contact: Good Behavior: Pleasant, cooperative, polite, calm Speech: Clear, audible, minimal Mood: Good Affect: Blunted with periods of marked brightening. Thought process: Linear Thought Content: Poverty of thought, not very expressive with his thoughts today. Cognition: A/O X 4 Insight: Poor Judgment: Poor Interventions PRN's used: Nicotine lozenge Therapeutic interventions: 1:1 assessment, monitored behaviors and need for intervention, encouragement to express thoughts and feelings, therapeutic conversation, medication administration/education/monitoring, positive reinforcement, Q 15 min safety checks. Restraints/seclusion/emergency medication: N/A Justification of Continued Inpatient Treatment: Pt is gravely disabled, he is on a TCON, he continues to need medication adjustment and monitoring and a safe and supportive environment, he has a hearing set for 09/26/19.
[2019-09-14 20:00] VITALS: BP 110/69
[2019-09-14] MEDS: clozapine 100mg tablet PO SCH (20:07)
[2019-09-14] MEDS: clozapine 25mg tablet PO SCH (20:07)
[2019-09-14] MEDS: sertraline 25mg tablet PO SCH (20:08)
[2019-09-14] MEDS: hydrOXYzine 25 MG tablet PO PRN (21:48)
[2019-09-14] MEDS: LORazepam 1 MG tablet PO PRN (22:16)
--- NOTE | 2019-09-15 00:07 | NUR ---
Nursing Progress Note: Legal hold: TCon Client on involuntary status for GD Report received from nurse with use of SBAR: LUIS FERNANDO Martinez Why are they here: Patient had been discharged previously with follow up at [facility] Team. Upon assessment by the [facility], it was determined patient was not able to obtain, food, longterm, or clothing and a 5150 for GD was written. Patient returned within hours of discharge. At time of return patient denied any symptoms related to his mental illness diagnosis of Schizophrenia. He continues to present with cognitive impairment which impedes his ability to care of himself, and requires multiple supports and external structures. Assessment What has happened this shift: Pt. again up watching TV in the Recreation Room at the beginning of the shift. He continues to interact only minimally with others, and appears to be completely in-grossed in the television show he is watching. However, when greeted by this sports writer pt. smiles and states animatedly, "I'm doing good!" He then requests a PRN Nicotine Lozenge. Pt. later attends HS snack in the Group Room, and proceeds to begin watching TV here, again interacting minimally. Attempted to complete 1:1, however pt. remains guarded with conversation. He denies any depression, anxiety, A/V/THOMAS, and no delusional statements made this shift. However, as HS approaches, pt. becomes visibly anxious and requests PRN anxiolytic, Atrax administered. Later, pt. is up pacing in the hallway, and approaches this sports writer requesting PRN Ativan and another Nicotine Lozenge, administered with effectiveness. Will continue to monitor. S/I, H/I: Denies A/VH: Denies, does not appear to be internally preoccupied this shift Sleep: Pt. exhibits some insomnia at HS r/t increased restlessness, PRN anxiolytics administered with effectiveness ADL's: Requires some prompting and direction from staff Group attendance: Pt reports he attends groups Were meds taken: Yes Any med S/E: None Mental Status Exam Appearance: Present as neat, and appropriately dressed in hospital attire Eye contact: Good Behavior: Cooperative, restless, and guarded. Child-like animation Speech: Soft and minimal, responds only to questions Mood: Guarded, with restlessness at times Affect: Blunted Thought process: Poverty of thought Thought Content: WNL, however difficult to assess r/t pt. is guarded Cognition: A&O X4 Insight: Poor Judgment: Poor to fair Interventions PRN's used: Atrax, Ativan, and Nicotine Lozenges Therapeutic interventions: Ensured contract for safety, maintained a safe and therapeutic environment, provided clear and simple instructions, monitored behaviors and need for intervention, encouraged independent performance of ADLs, provided positive encouragement, and maintained Q 15 min safety checks. Restraints/seclusion/emergency medication: N/A Justification of Continued Inpatient Treatment: Pt. continues to require a safe and supportive and is unable to provide for his basic needs independently r/t his mental illness. Per Michael Cadena [facility] is working towards placement.
[2019-09-15 07:47] VITALS: BP 98/56
[2019-09-15] MEDS: sennosides 8.6mg tablet PO SCH ×2 (08:17→20:39)
[2019-09-15] MEDS: docusate sod 100mg capsule PO SCH ×2 (08:17→20:38)
[2019-09-15] MEDS: CLOZAPINE 25 MG oral disintegrating tablet PO SCH ×2 (08:17→13:02)
[2019-09-15] MEDS: pantoprazole 40mg Tablet.DR PO SCH (08:17)
[2019-09-15] MEDS: nicotine 21mg patch - 24 hr TD SCH (08:17)
[2019-09-15] MEDS: propranolol 10mg tablet PO SCH ×3 (08:17→20:36)
[2019-09-15] MEDS: DOXYCYCLINE 100MG CAPSULE PO SCH (08:17)
[2019-09-15] MEDS: NICOTINE POLACRILEX 2 MG LOZENGE BC PRN ×3 (11:47→20:11)
--- NOTE | 2019-09-15 15:43 | NUR ---
Nursing Progress Note: Legal hold: TCON Client on involuntary status for GD Report received from nurse Yolanda GOULD with use of SBAR: Why are they here: Patient had been discharged previously with follow up at [facility] Team. Upon assessment by the [facility], it was determined patient was not able to obtain, food, prison, or clothing and a 5150 for GD was written. Patient returned within hours of discharge. At time of return patient denied any symptoms related to his mental illness diagnosis of Schizophrenia. He continues to present with cognitive impairment which impedes his ability to care of himself, and requires multiple supports and external structures. Assessment What has happened this shift: Received pt sleeping in bed. Pt awoke for breakfast. Pt has bright affect today and seems more in touch with what is going on around him than yesterday (less internally stimulated) Pt did attend groups and meals and alternated between laying in bed and sitting in dayroom during free time. Pt denies depression and S.I. And denies a/v hallucinations. Pt pleasant. S/I, H/I: Pt denies A/VH: Pt denies Sleep: napping on and off today ADL's: Independent Group attendance: Yes Were meds taken: Yes Any med S/E: None noted or reported. Mental Status Exam Appearance: Neat and clean Eye contact: Good Behavior: Pleasant, cooperative, polite, calm Speech: Clear, audible, minimal Mood: Good Affect: Blunted with periods of marked brightening. Thought process: Linear Thought Content: Poverty of thought, not very expressive with his thoughts today. Cognition: A/O X 4 Insight: Poor Judgment: Poor Interventions PRN's used: Nicotine lozenge Therapeutic interventions: 1:1 assessment, monitored behaviors and need for intervention, encouragement to express thoughts and feelings, therapeutic conversation, medication administration/education/monitoring, positive reinforcement, Q 15 min safety checks. Restraints/seclusion/emergency medication: N/A Justification of Continued Inpatient Treatment: Pt is gravely disabled, he is on a TCON, he continues to need medication adjustment and monitoring and a safe and supportive environment, he has a hearing set for 09/26/19.
[2019-09-15] MEDS: OLANZAPINE 5 MG TABLET PO PRN (18:15)
[2019-09-15 20:00] VITALS: BP 121/79
[2019-09-15] MEDS: sertraline 25mg tablet PO SCH (20:36)
[2019-09-15] MEDS: clozapine 25mg tablet PO SCH (20:37)
[2019-09-15] MEDS: clozapine 100mg tablet PO SCH (20:38)
--- NOTE | 2019-09-16 01:25 | NUR ---
Legal hold: TCON Client on involuntary status for GD Report received from nurse Juan RN with use of SBAR: Why are they here: Patient had been discharged previously with follow up at [facility] Team. Upon assessment by the [facility], it was determined patient was not able to obtain, food, [facility], or clothing and a 5150 for GD was written. Patient returned within hours of discharge. At time of return patient denied any symptoms related to his mental illness diagnosis of Schizophrenia. He continues to present with cognitive impairment which impedes his ability to care of himself, and requires multiple supports and external structures. Assessment What has happened this shift: This patient is ambulatory and visiting other patients on the unit throughout the evening. He presents as happy. The patient smiles often. When interviewed the patient denies S/I, H/I, or any hallucinations. He makes good eye contact and speaks in a normal voice. Thought process is linear. The patient denies depression. He ate his full dinner. He is medication compliant. S/I, H/I: Pt denies. A/VH: Pt denies. Sleep: Will tally at 0500. ADL's: Independent. Group attendance: Yes, on day shift. Were meds taken: Yes, patient is medication compliant. Any med S/E: None noted or reported. Mental Status Exam Appearance: Neat and clean. Eye contact: Good. Behavior: Well mannered, considerate, friendly with staff and other patients. Speech: Clear, normal rate, rhythm, and tone. Mood: Good. Affect: Presents as normal. Thought process: Linear. Thought Content: Poverty of thought, not very expressive with his thoughts today. Cognition: Person, place, time, and situation. Insight: Poor. Judgment: Poor. Interventions PRN's used: Therapeutic interventions: 1:1 assessment, monitored behaviors and need for intervention, encouragement to express thoughts and feelings, therapeutic conversation, medication administration/education/monitoring, positive reinforcement, Q 15 min safety checks. Restraints/seclusion/emergency medication: N/A Justification of Continued Inpatient Treatment: Pt is gravely disabled, he is on a TCON, he continues to need medication adjustment and monitoring and a safe and supportive environment, he has a hearing set for 09/26/19.
[2019-09-16] MEDS: sennosides 8.6mg tablet PO SCH ×2 (08:17→21:01)
[2019-09-16] MEDS: pantoprazole 40mg Tablet.DR PO SCH (08:17)
[2019-09-16] MEDS: docusate sod 100mg capsule PO SCH ×2 (08:17→21:00)
[2019-09-16] MEDS: propranolol 10mg tablet PO SCH ×3 (08:17→21:00)
[2019-09-16] MEDS: nicotine 21mg patch - 24 hr TD SCH (08:17)
[2019-09-16] MEDS: DOXYCYCLINE 100MG CAPSULE PO SCH (08:17)
[2019-09-16] MEDS: CLOZAPINE 25 MG oral disintegrating tablet PO SCH ×2 (08:17→13:01)
[2019-09-16 08:55] VITALS: BP 110/60
[2019-09-16] MEDS: NICOTINE POLACRILEX 2 MG LOZENGE BC PRN ×3 (08:56→20:59)
--- NOTE | 2019-09-16 16:50 | NUR ---
Nursing Progress Note: Legal hold: TCON Client on involuntary status for GD Report received from nurse John RN with use of SBAR: Why are they here: Patient had been discharged previously with follow up at [facility] Team. Upon assessment by the [facility], it was determined patient was not able to obtain, food, alf, or clothing and a 5150 for GD was written. Patient returned within hours of discharge. At time of return patient denied any symptoms related to his mental illness diagnosis of Schizophrenia. He continues to present with cognitive impairment which impedes his ability to care of himself, and requires multiple supports and external structures. Assessment What has happened this shift: Received pt sleeping in bed. Pt awoke for breakfast. Pt has bright affect today. Pt stated that last night he was seeing things on the jacobson but he is not experiencing that today. Pt up and visible most of the day interacting well with staff and peers. Pt denies a/v hallucinations and denies depression and S.I./H.I. S/I, H/I: Pt denies A/VH: Pt denies Sleep: napping on and off this morning, awake after lunch ADL's: Independent Group attendance: Yes Were meds taken: Yes Any med S/E: None noted or reported. Mental Status Exam Appearance: Neat and clean Eye contact: Good Behavior: Pleasant, cooperative, polite, calm Speech: Clear, audible, minimal Mood: Good Affect: Blunted with periods of marked brightening. Thought process: Linear Thought Content: Poverty of thought, not very expressive with his thoughts today. Cognition: A/O X 4 Insight: Poor Judgment: Poor Interventions PRN's used: Nicotine lozenge Therapeutic interventions: 1:1 assessment, monitored behaviors and need for intervention, encouragement to express thoughts and feelings, therapeutic conversation, medication administration/education/monitoring, positive reinforcement, Q 15 min safety checks. Restraints/seclusion/emergency medication: N/A Justification of Continued Inpatient Treatment: Pt is gravely disabled, he is on a TCON, he continues to need medication adjustment and monitoring and a safe and supportive environment, he has a hearing set for 09/26/19.
--- NOTE | 2019-09-16 18:51 | NUR ---
Patient resting quietly in bed. Well oriented. Supine. Patient states "I'm relaxing." Patient has no needs/requests at this time.
[2019-09-16 20:00] VITALS: BP 107/61
[2019-09-16] MEDS: clozapine 25mg tablet PO SCH (20:59)
[2019-09-16] MEDS: hydrOXYzine 25 MG tablet PO PRN (20:59)
[2019-09-16] MEDS: clozapine 100mg tablet PO SCH (20:59)
[2019-09-16] MEDS: sertraline 25mg tablet PO SCH (21:00)
--- NOTE | 2019-09-17 00:14 | NUR ---
Nursing Progress Note: Legal hold: TCON Client on involuntary status for GD Report received from nurse Peraza RN with use of SBAR: Why are they here: Patient had been discharged previously with follow up at [facility] Team. Upon assessment by the [facility], it was determined patient was not able to obtain, food, mcc, or clothing and a 5150 for GD was written. Patient returned within hours of discharge. At time of return patient denied any symptoms related to his mental illness diagnosis of Schizophrenia. He continues to present with cognitive impairment which impedes his ability to care of himself, and requires multiple supports and external structures. Assessment What has happened this shift: Patient ambulates around unit, watches football on television. Patient interacts with patients and staff. The patient tells this technical document writer that he is having "normal thoughts." He states he is happy and looking forward to having a permanent place to live. this patient denies hallucinations, suicidal or homicidal ideation. he denies hallucinations. This patient makes direct eye contact. Patient smiles and laughs. He is without complaint at this time. S/I, H/I: Pt denies. A/VH: Pt denies. Sleep:Will tally in am. ADL's: Independent Group attendance: Yes. Were meds taken: Yes, patient is medication compliant. Any med S/E: None noted or reported. Mental Status Exam Appearance: Neat and clean Eye contact: Good Behavior: Pleasant, cooperative, polite, calm Speech: Normal rate, rhythm, and tone. Mood: Good. Affect: Blunted with periods of marked brightening. Thought process: Linear Thought Content: Poverty of thought, not very expressive with his thoughts today. Cognition: A/O X 4 Insight: Poor Judgment: Poor Interventions PRN's used: Nicotine lozenge Therapeutic interventions: 1:1 assessment, monitored behaviors and need for intervention, encouragement to express thoughts and feelings, therapeutic conversation, medication administration/education/monitoring, positive reinforcement, Q 15 min safety checks. Restraints/seclusion/emergency medication: N/A Justification of Continued Inpatient Treatment: Pt is gravely disabled, he is on a TCON, he continues to need medication adjustment and monitoring and a safe and supportive environment, he has a hearing set for 09/26/19.
[2019-09-17 07:13] VITALS: BP 113/68
[2019-09-17] MEDS: CLOZAPINE 25 MG oral disintegrating tablet PO SCH ×2 (08:16→12:59)
[2019-09-17] MEDS: propranolol 10mg tablet PO SCH ×3 (08:16→20:13)
[2019-09-17] MEDS: nicotine 21mg patch - 24 hr TD SCH (08:16)
[2019-09-17] MEDS: sennosides 8.6mg tablet PO SCH ×2 (08:16→20:13)
[2019-09-17] MEDS: pantoprazole 40mg Tablet.DR PO SCH (08:16)
[2019-09-17] MEDS: DOXYCYCLINE 100MG CAPSULE PO SCH (08:17)
[2019-09-17] MEDS: docusate sod 100mg capsule PO SCH ×2 (08:17→20:14)
--- NOTE | 2019-09-17 13:06 | NUR ---
NURSING PROGRESS NOTE Legal hold: TCON Client on involuntary status for GD Report received from nurse John RN with use of SBAR: Why are they here: Patient had been discharged previously with follow up at [facility] Team. Upon assessment by the [facility], it was determined patient was not able to obtain, food, senior care, or clothing and a 5150 for GD was written. Patient returned within hours of discharge. At time of return patient denied any symptoms related to his mental illness diagnosis of Schizophrenia. He continues to present with cognitive impairment which impedes his ability to care of himself, and requires multiple supports and external structures. Assessment What has happened this shift: Patient sleeps in this morning gets up for breakfast and takes medications. Long napping in morning. Up for football game and watching with others in rec room. Smiling and laughing, good rapport with his peers. Denies SI, AH, VH. Asks appropriately to charge his ankle monitor. States he is "happy." S/I, H/I: Pt denies. A/VH: Pt denies. Sleep: Napped ADL's: Independent Group attendance: None today Were meds taken: Yes Any med S/E: None Mental Status Exam Appearance: Neat and clean Eye contact: Direct Behavior: Cooperative Speech: Clear Mood: happy Affect: smiling Thought process: Linear Thought Content: just watching the game Cognition: Alert Insight: fair Judgment: fair Interventions PRN's used: None Therapeutic interventions: 1:1 assessment, monitored behaviors and need for intervention, encouragement to express thoughts and feelings, therapeutic conversation, medication administration/education/monitoring, positive reinforcement, Q 15 min safety checks. Restraints/seclusion/emergency medication: N/A Justification of Continued Inpatient Treatment: Pt is gravely disabled, he is on a TCON, he continues to need medication adjustment and monitoring and a safe and supportive environment, he has a hearing set for 09/26/19.
[2019-09-17] MEDS: NICOTINE POLACRILEX 2 MG LOZENGE BC PRN (17:45)
[2019-09-17] MEDS: omega-3 acid ethyl esters 1GM capsule PO SCH (20:00)
[2019-09-17 20:06] VITALS: BP 127/78
[2019-09-17] MEDS: sertraline 25mg tablet PO SCH (20:13)
[2019-09-17] MEDS: clozapine 25mg tablet PO SCH (20:13)
[2019-09-17] MEDS: clozapine 100mg tablet PO SCH (20:14)
--- NOTE | 2019-09-17 22:41 | NUR ---
Nursing Progress Note Legal hold: TCON Client on involuntary status for GD Report received from nurse John RN with use of SBAR: Why are they here: Patient had been discharged previously with follow up at [facility] Team. Upon assessment by the [facility], it was determined patient was not able to obtain, food, detention, or clothing and a 5150 for GD was written. Patient returned within hours of discharge. At time of return patient denied any symptoms related to his mental illness diagnosis of Schizophrenia. He continues to present with cognitive impairment which impedes his ability to care of himself, and requires multiple supports and external structures. Assessment What has happened this shift: Patient was watching tv in the group room at change of shift. pt was friendly and cooperative for 1:1 but still not offering up much info. Pt spent most of the evening watching "Stranger Things" with other pt's and eating snacks. Pt stated that he has not complaints and that he is doing "good." S/I, H/I: Pt denies. A/VH: Pt denies. Sleep: see sleep assessment ADL's: Independent Group attendance: snack Were meds taken: Yes Any med S/E: None Mental Status Exam Appearance: Neat and clean Eye contact: Direct Behavior: Cooperative Speech: Clear Mood: happy Affect: smiling Thought process: Linear Thought Content: tv Cognition: Alert Insight: fair Judgment: fair Interventions PRN's used: None Therapeutic interventions: 1:1 assessment, monitored behaviors and need for intervention, encouragement to express thoughts and feelings, therapeutic conversation, medication administration/education/monitoring, positive reinforcement, Q 15 min safety checks. Restraints/seclusion/emergency medication: N/A Justification of Continued Inpatient Treatment: Pt is gravely disabled, he is on a TCON, he continues to need medication adjustment and monitoring and a safe and supportive environment, he has a hearing set for 09/26/19.
[2019-09-18 08:00] VITALS: BP 109/60
[2019-09-18] MEDS: omega-3 acid ethyl esters 1GM capsule PO SCH ×3 (08:00→20:00)
[2019-09-18] MEDS: CLOZAPINE 25 MG oral disintegrating tablet PO SCH ×2 (08:06→12:44)
[2019-09-18] MEDS: DOXYCYCLINE 100MG CAPSULE PO SCH (08:07)
[2019-09-18] MEDS: sennosides 8.6mg tablet PO SCH ×2 (08:07→20:21)
[2019-09-18] MEDS: docusate sod 100mg capsule PO SCH ×2 (08:07→20:22)
[2019-09-18] MEDS: pantoprazole 40mg Tablet.DR PO SCH (08:07)
[2019-09-18] MEDS: propranolol 10mg tablet PO SCH ×3 (08:07→20:21)
[2019-09-18] MEDS: nicotine 21mg patch - 24 hr TD SCH (08:08)
--- NOTE | 2019-09-18 08:12 | NUR ---
CM: DCP/Linkages Presenting Issues: Pt's T-Con, need placement services from [facility]. Interventions: CM/DCP SS had t/c w/[facility]'s office (Velasquez), per t/c JUDI is requesting updated notes to facilitate placement services. Plan: SS to fax updated notes per request from [facility]. Shirin Carlos LCSW Addendum: 09/18/19 at 0814 by Shirin Carlos Amended: Links added.
[2019-09-18] MEDS: NICOTINE POLACRILEX 2 MG LOZENGE BC PRN ×2 (14:08→20:38)
--- NOTE | 2019-09-18 14:23 | NUR ---
NURSING PROGRESS NOTE Legal hold: TCON Client on involuntary status for GD Report received from nurse Tobias RN with use of SBAR Why are they here: Patient had been discharged previously with follow up at [facility]. [place] [facility] was determined patient was not able to obtain, food, assisted, or clothing and a 5150 for GD was written. Patient returned within hours of discharge. At time of return patient denied any symptoms related to his mental illness diagnosis of Schizophrenia. He continues to present with cognitive impairment which impedes his ability to care of himself, and requires multiple supports and external structures. Assessment What has happened this shift: Up early this morning and in group room, took medications and ate breakfast with his friends. He is smiling and happy. Does well with others and staff and is well liked by others. He charges his ankle bracelet and returns cords to nursing office without prompting. No other complaints or changes. Denies all SI, HI, AH, VH and no delusional statements. S/I, H/I: denies. A/VH: denies. Sleep: Napped ADL's: Independent Group attendance: yes Were meds taken: Yes Any med S/E: None Mental Status Exam Appearance: Neat and clean Eye contact: Direct Behavior: Cooperative Speech: Clear Mood: happy Affect: smiling Thought process: Circumstantial Thought Content: upcoming court vs a place to live which will be first. Cognition: Alert Insight: poor Judgment: poor Interventions PRN's used: None Therapeutic interventions: 1:1 assessment, monitored behaviors and need for intervention, encouragement to express thoughts and feelings, therapeutic conversation, medication administration/education/monitoring, positive reinforcement, Q 15 min safety checks. Restraints/seclusion/emergency medication: N/A Justification of Continued Inpatient Treatment: Pt is gravely disabled, he is on a TCON, he continues to need medication adjustment and monitoring and a safe and supportive environment, he has a hearing set for 09/26/19.
[2019-09-18] MEDS: acetaminophen 325mg tablet PO PRN (18:02)
[2019-09-18 20:06] VITALS: BP 115/77
[2019-09-18] MEDS: sertraline 25mg tablet PO SCH (20:21)
[2019-09-18] MEDS: clozapine 25mg tablet PO SCH (20:23)
[2019-09-18] MEDS: clozapine 100mg tablet PO SCH (20:23)
--- NOTE | 2019-09-19 00:15 | NUR ---
Nursing Progress Note Legal hold: TCON Client on involuntary status for GD Report received from nurse LUIS FERNANDO Martinez with use of SBAR: Why are they here: Patient had been discharged previously with follow up at [facility] Team. Upon assessment by the [facility] [place], it was determined patient was not able to obtain, food, fpc, or clothing and a 5150 for GD was written. Patient returned within hours of discharge. At time of return patient denied any symptoms related to his mental illness diagnosis of Schizophrenia. He continues to present with cognitive impairment which impedes his ability to care of himself, and requires multiple supports and external structures. Assessment What has happened this shift: Patient was watching tv in the group room at change of shift. pt was friendly and cooperative for 1:1 and was seen smiling most of the evening. pt interacts with others appropriately and is generally friendly to others. pt was seen responding to internal stimuli, talking to someone not there but denies hallucinations. Pt attended snack, watching tv with others and went to bed after snack. S/I, H/I: Pt denies. A/VH: Pt denies. Sleep: see sleep assessment ADL's: Independent Group attendance: snack Were meds taken: Yes Any med S/E: None Mental Status Exam Appearance: Neat and clean Eye contact: Direct Behavior: Cooperative Speech: Clear Mood: happy Affect: smiling Thought process: Linear Thought Content: watching tv Cognition: Alert Insight: fair Judgment: fair Interventions PRN's used: nicotine Therapeutic interventions: 1:1 assessment, monitored behaviors and need for intervention, encouragement to express thoughts and feelings, therapeutic conversation, medication administration/education/monitoring, positive reinforcement, Q 15 min safety checks. Restraints/seclusion/emergency medication: N/A Justification of Continued Inpatient Treatment: Pt is gravely disabled, he is on a TCON, he continues to need medication adjustment and monitoring and a safe and supportive environment, he has a hearing set for 09/26/19.
[2019-09-19 07:33] VITALS: BP 114/68
[2019-09-19] MEDS: pantoprazole 40mg Tablet.DR PO SCH (08:04)
[2019-09-19] MEDS: sennosides 8.6mg tablet PO SCH ×2 (08:04→20:45)
[2019-09-19] MEDS: DOXYCYCLINE 100MG CAPSULE PO SCH (08:04)
[2019-09-19] MEDS: CLOZAPINE 25 MG oral disintegrating tablet PO SCH ×2 (08:04→13:01)
[2019-09-19] MEDS: docusate sod 100mg capsule PO SCH ×2 (08:04→20:46)
[2019-09-19] MEDS: omega-3 acid ethyl esters 1GM capsule PO SCH ×2 (08:04→20:45)
[2019-09-19] MEDS: propranolol 10mg tablet PO SCH ×3 (08:04→20:49)
[2019-09-19] MEDS: nicotine 21mg patch - 24 hr TD SCH (08:05)
[2019-09-19] MEDS: NICOTINE POLACRILEX 2 MG LOZENGE BC PRN ×2 (15:06→20:44)
--- NOTE | 2019-09-19 17:52 | NUR ---
NURSING PROGRESS NOTE Legal hold: TCON Client on involuntary status for GD Report received from nurse Yolanda RN with use of SBAR Why are they here: Patient had been discharged previously with follow up at [facility] Team. Upon assessment by the [facility], it was determined patient was not able to obtain, food, intermediate, or clothing and a 5150 for GD was written. Patient returned within hours of discharge. At time of return patient denied any symptoms related to his mental illness diagnosis of Schizophrenia. He continues to present with cognitive impairment which impedes his ability to care of himself, and requires multiple supports and external structures. Assessment What has happened this shift: Pt. up early before breakfast, drinking hot chocolate. Patient states that he does not want to take propanolol today because it makes him feel short of breath, told him we can hold it today, until he can discuss with doctor. Pt. is upbeat and in a positive mood. S/I, H/I: denies. A/VH: denies. Sleep: 7.5 hrs NOC, napped after breakfast. ADL's: Independent Group attendance: yes Were meds taken: Yes Any med S/E: Pt. reports SOB after administration of propanolol. Mental Status Exam Appearance: Freshly showered, dressed in personal attire. Eye contact: Direct Behavior: Cooperative, calm. Speech: Clear. Normal volume and rate. Mood: Euthymic. Affect: Constricted. Thought process: Circumstantial Thought Content: Medication side effects, DC. Cognition: Alert Insight: poor Judgment: poor Interventions PRN's used: None Therapeutic interventions: 1:1 assessment, monitored behaviors and need for intervention, encouragement to express thoughts and feelings, therapeutic conversation, medication administration/education/monitoring, positive reinforcement, Q 15 min safety checks. Restraints/seclusion/emergency medication: N/A Justification of Continued Inpatient Treatment: Pt is gravely disabled, he is on a TCON, he continues to need medication adjustment and monitoring and a safe and supportive environment, he has a hearing set for 09/26/19.
[2019-09-19 20:00] VITALS: BP 111/68
[2019-09-19] MEDS: clozapine 100mg tablet PO SCH (20:46)
[2019-09-19] MEDS: sertraline 25mg tablet PO SCH (20:46)
[2019-09-19] MEDS: clozapine 25mg tablet PO SCH (20:46)
--- NOTE | 2019-09-20 01:34 | NUR ---
Nursing Progress Note: Legal hold: TCON Client on involuntary status for GD Report received from nurse Juan RN with use of SBAR: Why are they here: Patient had been discharged previously with follow up at [facility] Team. Upon assessment by the [facility] [place], it was determined patient was not able to obtain, food, fci, or clothing and a 5150 for GD was written. Patient returned within hours of discharge. At time of return patient denied any symptoms related to his mental illness diagnosis of Schizophrenia. He continues to present with cognitive impairment which impedes his ability to care of himself, and requires multiple supports and external structures. Assessment: What has happened this shift: The patient was in the group room watching tv. He was sitting at a table with other clients, laughing and joking. The patient almost always has a smile on his face, and appears happy. He went back and forth between group and rec rooms until snack time. He was not seen or heard responding to IS tonight. He denies depression or AV/H. He reports that he's still going to groups, which he states he enjoys. "I'm just waiting to be conserved." The patient states he's fine with conservation. S/I, H/I: Denies A/VH: Denies Sleep: see sleep assessment ADL's: Independent Group attendance: No night groups Were meds taken: Yes Any med S/E: None Mental Status Exam Appearance: Well groomed with hair cut short, wearing green scrub pants, black shirt, and tennis shoes. Eye contact: Direct Behavior: Cooperative, happy, joking with others. Speech: Clear Mood: "Great" Affect: Bright Thought process: Linear Thought Content: Being conserved, awaiting placement. Cognition: Alert Insight: fair Judgment: fair Interventions PRN's used: nicotine lozenge. Therapeutic interventions: 1:1 assessment, monitored behaviors and need for intervention, encouragement to express thoughts and feelings, therapeutic conversation, medication administration/education/monitoring, positive reinforcement, Q 15 min safety checks. Restraints/seclusion/emergency medication: N/A Justification of Continued Inpatient Treatment: Pt is gravely disabled, he is on a TCON, he continues to need medication adjustment and monitoring and a safe and supportive environment, he has a hearing set for 09/26/19.
[2019-09-20] MEDS: DOXYCYCLINE 100MG CAPSULE PO SCH (07:28)
[2019-09-20] MEDS: CLOZAPINE 25 MG oral disintegrating tablet PO SCH ×2 (07:29→12:58)
[2019-09-20] MEDS: sennosides 8.6mg tablet PO SCH ×2 (07:29→20:12)
[2019-09-20] MEDS: omega-3 acid ethyl esters 1GM capsule PO SCH (07:29)
[2019-09-20] MEDS: pantoprazole 40mg Tablet.DR PO SCH (07:29)
[2019-09-20] MEDS: docusate sod 100mg capsule PO SCH ×2 (07:30→20:12)
[2019-09-20] MEDS: nicotine 21mg patch - 24 hr TD SCH (07:30)
[2019-09-20 07:31] VITALS: BP 119/62
[2019-09-20] MEDS ORDERED: atomoxetine 40 MG capsule PO SCH (08:00)
[2019-09-20] MEDS: atomoxetine 40 MG capsule PO SCH (08:39)
--- NOTE | 2019-09-20 17:09 | NUR ---
NURSING PROGRESS NOTE Legal hold: TCON Client on involuntary status for GD Report received from nurse Yolanda RN with use of SBAR Why are they here: Patient had been discharged previously with follow up at [facility] Team. Upon assessment by the [facility], it was determined patient was not able to obtain, food, [facility], or clothing and a 5150 for GD was written. Patient returned within hours of discharge. At time of return patient denied any symptoms related to his mental illness diagnosis of Schizophrenia. He continues to present with cognitive impairment which impedes his ability to care of himself, and requires multiple supports and external structures. Assessment What has happened this shift: Patient awake at shift change sitting in dining room drinking coffee. Patient refused his propanolol and fish oil, so these were DCd by Dr. Treviño. Patient has been spending time in group room socializing with peer who will be discharged. Patient is well liked by staff and peers and he enjoys making jokes with peers. S/I, H/I: denies. A/VH: denies. Sleep: 7.0 hrs NOC, napped after breakfast. ADL's: Independent Group attendance: yes Were meds taken: Yes Any med S/E: Pt. reports SOB after administration of propanolol. Fish oil causing acne. DCd. Mental Status Exam Appearance: Neat and clean in hospital bottoms and t-shirt. Eye contact: Direct Behavior: Cooperative, calm. Jovial. Speech: Clear. Normal volume and rate. Mood: Euthymic. Affect: Constricted. Thought process: Circumstantial Thought Content: Where he will be discharged. Keeping busy on unit. Medication side effects. Cognition: Alert Insight: poor Judgment: poor Interventions PRN's used: None Therapeutic interventions: 1:1 assessment, monitored behaviors and need for intervention, encouragement to express thoughts and feelings, therapeutic conversation, medication administration/education/monitoring, positive reinforcement, Q 15 min safety checks. Restraints/seclusion/emergency medication: N/A Justification of Continued Inpatient Treatment: Pt is gravely disabled, he is on a TCON, he continues to need medication adjustment and monitoring and a safe and supportive environment, he has a hearing set for 09/26/19.
[2019-09-20] MEDS: sertraline 25mg tablet PO SCH (20:13)
[2019-09-20] MEDS: clozapine 100mg tablet PO SCH (20:14)
[2019-09-20] MEDS: clozapine 25mg tablet PO SCH (20:15)
[2019-09-20 20:18] VITALS: BP 137/83
[2019-09-20] MEDS: NICOTINE POLACRILEX 2 MG LOZENGE BC PRN (20:27)
--- NOTE | 2019-09-20 20:29 | NUR ---
NURSING PROGRESS NOTE Legal hold: TCON Client on involuntary status for GD Report received from nurse Nielson RN with use of SBAR Why are they here: Patient had been discharged previously with follow up at [facility] Team. Upon assessment by the [facility], it was determined patient was not able to obtain, food, group home, or clothing and a 5150 for GD was written. Patient returned within hours of discharge. At time of return patient denied any symptoms related to his mental illness diagnosis of Schizophrenia. He continues to present with cognitive impairment which impedes his ability to care of himself, and requires multiple supports and external structures. Assessment What has happened this shift: Patient awake at shift change sitting in dining room drinking coffee. Patient has been spending time in group room socializing with peer who will be discharged. Patient is well liked by staff and peers and he enjoys making jokes with peers. S/I, H/I: denies. A/VH: denies. Sleep: 7.0 hrs NOC, napped after breakfast. ADL's: Independent Group attendance: yes Were meds taken: Yes Any med S/E: Pt. reports SOB after administration of propanolol. Fish oil causing acne. DCd. Mental Status Exam Appearance: Neat and clean in hospital bottoms and t-shirt. Eye contact: Direct Behavior: Cooperative, calm. Jovial. Speech: Clear. Normal volume and rate. Mood: Euthymic. Affect: Constricted. Thought process: Circumstantial Thought Content: Where he will be discharged. Keeping busy on unit. Medication side effects. Cognition: Alert Insight: poor Judgment: poor Interventions PRN's used: None Therapeutic interventions: 1:1 assessment, monitored behaviors and need for intervention, encouragement to express thoughts and feelings, therapeutic conversation, medication administration/education/monitoring, positive reinforcement, Q 15 min safety checks. Restraints/seclusion/emergency medication: N/A Justification of Continued Inpatient Treatment: Pt is gravely disabled, he is on a TCON, he continues to need medication adjustment and monitoring and a safe and supportive environment, he has a hearing set for 09/26/19.
[2019-09-21 07:12] VITALS: BP 124/69
[2019-09-21] MEDS: pantoprazole 40mg Tablet.DR PO SCH (08:17)
[2019-09-21] MEDS: nicotine 21mg patch - 24 hr TD SCH (08:17)
[2019-09-21] MEDS: atomoxetine 40 MG capsule PO SCH (08:18)
[2019-09-21] MEDS: CLOZAPINE 25 MG oral disintegrating tablet PO SCH ×2 (08:18→13:09)
[2019-09-21] MEDS: docusate sod 100mg capsule PO SCH ×2 (08:18→20:23)
[2019-09-21] MEDS: DOXYCYCLINE 100MG CAPSULE PO SCH (08:18)
[2019-09-21] MEDS: sennosides 8.6mg tablet PO SCH ×2 (08:18→20:24)
[2019-09-21] MEDS: NICOTINE POLACRILEX 2 MG LOZENGE BC PRN ×4 (13:42→20:53)
--- NOTE | 2019-09-21 15:57 | NUR ---
NURSING PROGRESS NOTE Legal hold: TCON Client on involuntary status for GD Report received from nurse Yolanda RN with use of SBAR Why are they here: Patient had been discharged previously with follow up at [facility] Team. Upon assessment by the [facility] [place], it was determined patient was not able to obtain, food, mcc, or clothing and a 5150 for GD was written. Patient returned within hours of discharge. At time of return patient denied any symptoms related to his mental illness diagnosis of Schizophrenia. He continues to present with cognitive impairment which impedes his ability to care of himself, and requires multiple supports and external structures. Assessment What has happened this shift: Pt up for breakfast and then returned to bed. Pt did get up for group and then returned to bed. Pt denies a/v hallucinations at this time and pt not observed talking to himself; though, appears internally preoccupied at times. Pt affect is blunted, but brightens when interacted with.Pt denies depression and suicidal ideation. Pt interacts minimally with peers and staff. S/I, H/I: denies. A/VH: denies. Sleep: 7.5 hrs NOC, napped after breakfast. ADL's: Independent Group attendance: yes Were meds taken: Yes Any med S/E: Mental Status Exam Appearance: Neat and clean in hospital bottoms and t-shirt. Eye contact: Direct Behavior: Cooperative, calm. Jovial. Speech: Clear. Normal volume and rate. Mood: Euthymic. Affect: Constricted. Thought process: Circumstantial Thought Content: Where he will be discharged. Keeping busy on unit. Medication side effects. Cognition: Alert Insight: poor Judgment: poor Interventions PRN's used: None Therapeutic interventions: 1:1 assessment, monitored behaviors and need for intervention, encouragement to express thoughts and feelings, therapeutic conversation, medication administration/education/monitoring, positive reinforcement, Q 15 min safety checks. Restraints/seclusion/emergency medication: N/A Justification of Continued Inpatient Treatment: Pt is gravely disabled, he is on a TCON, he continues to need medication adjustment and monitoring and a safe and supportive environment, he has a hearing set for 09/26/19.
[2019-09-21] MEDS: JUVEN Shake w/Arg/Glut/Ca2+Bmb (Juven 19.3gm) pkt 240ml PO SCH (18:00)
[2019-09-21] MEDS: OLANZAPINE 5 MG TABLET PO PRN (18:10)
[2019-09-21 19:43] VITALS: BP 133/79
[2019-09-21] MEDS: clozapine 100mg tablet PO SCH (20:23)
[2019-09-21] MEDS: clozapine 25mg tablet PO SCH (20:24)
[2019-09-21] MEDS: sertraline 25mg tablet PO SCH (20:27)
--- NOTE | 2019-09-21 21:56 | NUR ---
NURSING PROGRESS NOTE Legal hold: TCON Client on involuntary status for GD Report received from nurse KERMIT Fox with use of SBAR Why are they here: Patient had been discharged previously with follow up at [facility] Team. Upon assessment by the [facility], it was determined patient was not able to obtain, food, group home, or clothing and a 5150 for GD was written. Patient returned within hours of discharge. At time of return patient denied any symptoms related to his mental illness diagnosis of Schizophrenia. He continues to present with cognitive impairment which impedes his ability to care of himself, and requires multiple supports and external structures. Assessment What has happened this shift: Pt sitting in group room watching movies and socializing appropriately with peers at the beginning of shift. Pt denies SI, HI, A/VH. Pleasant and cooperative with all care; compliant with all medications. Pt provided nicotine lozenge per request. Pt HR elevated (appears to be normal trend for pt); he denied agitation/anxiety with no s/s of distress. S/I, H/I: Denies A/VH: Denies Sleep: Refer to sleep assessment ADL's: Independent Group attendance: No groups this shift Were meds taken: Yes Any med S/E: None observed, none reported Mental Status Exam Appearance: Neat, clean, well groomed and appropriately dressed for the unit. Eye contact: Direct Behavior: Watching movies and socializing with peers and staff appropriately. Speech: Clear, steady, audible. Mood: "good" Affect: Animated Thought process: Linear Thought Content: Movies, nicotine, discharge. Cognition: Alert Insight: poor Judgment: poor Interventions PRN's used: Nicotine lozenge Therapeutic interventions: 1:1 assessment, monitored behaviors and need for intervention, encouragement to express thoughts and feelings, therapeutic conversation, medication administration/education/monitoring, positive reinforcement, Q 15 min safety checks. Restraints/seclusion/emergency medication: N/A Justification of Continued Inpatient Treatment: Pt is gravely disabled, he is on a TCON, he continues to need medication adjustment and monitoring and a safe and supportive environment, he has a hearing set for 09/26/19.
[2019-09-22] MEDS: DOXYCYCLINE 100MG CAPSULE PO SCH (07:54)
[2019-09-22] MEDS: CLOZAPINE 25 MG oral disintegrating tablet PO SCH ×2 (07:54→12:13)
[2019-09-22] MEDS: pantoprazole 40mg Tablet.DR PO SCH (07:54)
[2019-09-22] MEDS: sennosides 8.6mg tablet PO SCH ×2 (07:54→20:32)
[2019-09-22] MEDS: docusate sod 100mg capsule PO SCH ×2 (07:54→20:32)
[2019-09-22] MEDS: atomoxetine 40 MG capsule PO SCH (07:54)
[2019-09-22] MEDS: JUVEN Shake w/Arg/Glut/Ca2+Bmb (Juven 19.3gm) pkt 240ml PO SCH ×3 (07:59→18:00)
[2019-09-22] MEDS: nicotine 21mg patch - 24 hr TD SCH (07:59)
[2019-09-22 08:04] VITALS: BP 116/62
--- NOTE | 2019-09-22 09:34 | NUR ---
Reassessment: PO intake continues to be good, avg 100% regular diet meeting needs. Per MD note, pt wanting to lose weight and requesting protein shakes, however Greyson protein shakes not indicated for this goal, recommend Ensure High Protein as alternative, d/w bedside RNMaria PROCTOR 09/20. No nutrition interventions at this time. Will continue to monitor. Rec: 1. continue regular diet 2. Ensure high protein (protein drink per pt request) 3. routine bowel care 4. wt per rx Addendum: 09/22/19 at 0935 by Wing Kenia LYN Amended: Links added. Addendum: 09/22/19 at [address] RD agree with note
[2019-09-22] MEDS: NICOTINE POLACRILEX 2 MG LOZENGE BC PRN ×2 (12:14→15:15)
--- NOTE | 2019-09-22 12:45 | NUR ---
NURSING PROGRESS NOTE Legal hold: TCON Client on involuntary status for GD Report received from RN with use of SBAR Why are they here: Patient had been discharged previously with follow up at [facility] Team. Upon assessment by the [facility], it was determined patient was not able to obtain, food, mcfp, or clothing and a 5150 for GD was written. Patient returned within hours of discharge. At time of return patient denied any symptoms related to his mental illness diagnosis of Schizophrenia. He continues to present with cognitive impairment which impedes his ability to care of himself, and requires multiple supports and external structures. Assessment What has happened this shift: Received Pt in bed sleeping w/o distress at change of shift. Pt awoke for breakfast and took AM meds w/o issue. Pt interacts infrequently with staff, but is friendly when approached. Pt tolerated room change w/o issue and used Frandy Nhan for cravings today. Pt attended group and seen in hallways talking to self at times. Pt interested in when and where he be discharged. Overall euthymic mood with restricted affect and cooperative with staff. S/I, H/I: denies. A/VH: denies. Sleep: No naps today ADL's: Independent Group attendance: yes Were meds taken: Yes Any med S/E: Mental Status Exam Appearance: Neat in street clothes Eye contact: Direct Behavior: Cooperative, calm, friendly. Speech: Clear. Normal volume and rate. Mood: Euthymic. Affect: Constricted. Thought process: Circumstantial Thought Content: Whn and where he will be discharged. Cognition: Alert Insight: poor Judgment: poor Interventions PRN's used: Nicotine Nhan. Therapeutic interventions: 1:1 assessment, monitored behaviors and need for intervention, encouragement to express thoughts and feelings, therapeutic conversation, medication administration/education/monitoring, positive reinforcement, Q 15 min safety checks. Restraints/seclusion/emergency medication: N/A Justification of Continued Inpatient Treatment: Pt is gravely disabled, he is on a TCON, he continues to need medication adjustment and monitoring and a safe and supportive environment, he has a hearing set for 09/26/19.
[2019-09-22] MEDS: OLANZAPINE 5 MG TABLET PO PRN (17:15)
[2019-09-22 20:00] VITALS: BP 107/59
[2019-09-22] MEDS: clozapine 25mg tablet PO SCH (20:32)
[2019-09-22] MEDS: clozapine 100mg tablet PO SCH (20:32)
[2019-09-22] MEDS: sertraline 25mg tablet PO SCH (20:37)
--- NOTE | 2019-09-23 01:23 | NUR ---
NURSING PROGRESS NOTE Legal hold: TCON Client on involuntary status for GD Report received from nurse KERMIT Fox with use of SBAR Why are they here: Patient had been discharged previously with follow up at [facility] Team. Upon assessment by the [facility], it was determined patient was not able to obtain, food, alf, or clothing and a 5150 for GD was written. Patient returned within hours of discharge. At time of return patient denied any symptoms related to his mental illness diagnosis of Schizophrenia. He continues to present with cognitive impairment which impedes his ability to care of himself, and requires multiple supports and external structures. Assessment What has happened this shift: Pt sitting in hallway chair socializing with peers at the beginning of shift. He briefly paced the hallway and appeared to be responding to some internal stimuli. Patient denies feeling anxious/agitated. He participated in HS snack in the group room and watched TV while his ankle monitor charged. Pleasant and cooperative with all care; compliant with all medication. Pt's HR continues to be slightly elevated at night, no s/s or c/o distress. Pt denies SI, HI, A/VH but appears to be responding to internal stimuli when walking the jama. S/I, H/I: Denies A/VH: Denies but appears to be responding to internal stimuli Sleep: Refer to sleep assessment ADL's: Independent Group attendance: No groups this shift Were meds taken: Yes Any med S/E: None observed, none reported Mental Status Exam Appearance: Neat, clean, well groomed and appropriately dressed for the unit. Eye contact: Direct Behavior: Watching movies and socializing with peers and staff appropriately. Speech: Clear, steady, audible. Mood: "good" Affect: Animated Thought process: Linear Thought Content: Discharge Cognition: Alert Insight: poor Judgment: poor Interventions PRN's used: None Therapeutic interventions: 1:1 assessment, monitored behaviors and need for intervention, encouragement to express thoughts and feelings, therapeutic conversation, medication administration/education/monitoring, positive reinforcement, Q 15 min safety checks. Restraints/seclusion/emergency medication: N/A Justification of Continued Inpatient Treatment: Pt is gravely disabled, he is on a TCON, he continues to need medication adjustment and monitoring and a safe and supportive environment, he has a hearing set for 09/26/19.
[2019-09-23 07:36] VITALS: BP 103/44
[2019-09-23] MEDS: JUVEN Shake w/Arg/Glut/Ca2+Bmb (Juven 19.3gm) pkt 240ml PO SCH ×3 (08:00→18:00)
[2019-09-23] MEDS: CLOZAPINE 25 MG oral disintegrating tablet PO SCH ×2 (08:29→13:09)
[2019-09-23] MEDS: DOXYCYCLINE 100MG CAPSULE PO SCH (08:30)
[2019-09-23] MEDS: atomoxetine 40 MG capsule PO SCH (08:30)
[2019-09-23] MEDS: docusate sod 100mg capsule PO SCH ×2 (08:30→20:23)
[2019-09-23] MEDS: pantoprazole 40mg Tablet.DR PO SCH (08:30)
[2019-09-23] MEDS: sennosides 8.6mg tablet PO SCH ×2 (08:30→20:23)
[2019-09-23] MEDS: nicotine 21mg patch - 24 hr TD SCH (08:31)
[2019-09-23 08:38] LABS: BASOPHILS % (AUTO) 0.6 % (0-1); EOSINOPHILS # (AUTO) 0.1 X10'3 (0-0.9); EOSINOPHILS % (AUTO) 2.1 % (0-6); HEMATOCRIT 44.2 % (42.0-52.0); HEMOGLOBIN 14.9 g/dl (14.0-17.9); LYMPHOCYTES # (AUTO) 1.9 X10'3 (1.1-4.8); LYMPHOCYTES % (AUTO) 28.6 % (21-51); MEAN CORPUSCULAR HEMOGLOBIN 28.1 PG (27.0-31.0); MEAN CORPUSCULAR HGB CONC 33.6 g/dL (33.0-36.5); MEAN CORPUSCULAR VOLUME 83.5 FL (78-98); MEAN PLATELET VOLUME 7.8 FL (7.4-10.4); MONOCYTES # (AUTO) 0.7 X10'3 (0-0.9); MONOCYTES % (AUTO) 11.2 % (2-12); NEUTROPHILS # (AUTO) 3.8 X10'3 (1.8-7.7); NEUTROPHILS % (AUTO) 57.5 % (42-75); PLATELET COUNT 226 X10'3 (140-440); RED CELL DISTRIBUTION WIDTH 13.7 % (11.5-14.5); WHITE BLOOD COUNT 6.7 X10'3 (4.5-11.0)
--- NOTE | 2019-09-23 16:26 | NUR ---
NURSING PROGRESS NOTE Legal hold: TCON Client on involuntary status for GD Report received from nurse KERMIT Salazar with use of SBAR Why are they here: Patient had been discharged previously with follow up at [facility] Team. Upon assessment by the [facility], it was determined patient was not able to obtain, food, snf, or clothing and a 5150 for GD was written. Patient returned within hours of discharge. At time of return patient denied any symptoms related to his mental illness diagnosis of Schizophrenia. He continues to present with cognitive impairment which impedes his ability to care of himself, and requires multiple supports and external structures. Assessment What has happened this shift: Patient up and sitting in the chair in the jama. He is smiling and friendly. He states that he slept well the night before and denies any issues. Patient requests to take his medication after breakfast. He eats all of his meal and requests to have another tray. RN reminds patient that patient has been wanting to lose weight, patient smiles and rubs his tummy. Patient returns to his room and falls asleep. Patient is appropriately social throughout the day with peers and staff. When asked if he feels like his medications are working he states "I dont feel anything." Patient goes on to state that AH are less in frequency and volume than they usually are and that overall he gets angry less. RN reminds patient that the meds are working and doing what they are meant to do. Patient smiles and nods. S/I, H/I: Denies A/VH: as above Sleep: 6.25hrs NOC and rested during the day ADL's: Independent Group attendance: No groups this shift Were meds taken: Yes Any med S/E: None observed, none reported Mental Status Exam Appearance: Neat, clean, well groomed and appropriately dressed for the unit. Eye contact: Direct Behavior: Watching movies and socializing with peers and staff appropriately. Speech: Clear, soft tone, normal rate/rhythm Mood: good Affect: congruent Thought process: Linear Thought Content: no delusional thought content present Cognition: A/Ox4 Insight: poor to fair Judgment: poor to fair Interventions PRN's used: None Therapeutic interventions: 1:1 assessment, monitored behaviors and need for intervention, encouragement to express thoughts and feelings, therapeutic conversation, medication administration/education/monitoring, positive reinforcement, Q 15 min safety checks. Restraints/seclusion/emergency medication: N/A Justification of Continued Inpatient Treatment: Pt is gravely disabled, he is on a TCON, he continues to need medication adjustment and monitoring and a safe and supportive environment, he has a hearing set for 09/26/19.
[2019-09-23 20:00] VITALS: BP 118/76
[2019-09-23] MEDS: clozapine 25mg tablet PO SCH (20:23)
[2019-09-23] MEDS: clozapine 100mg tablet PO SCH (20:23)
[2019-09-23] MEDS: NICOTINE POLACRILEX 2 MG LOZENGE BC PRN (20:23)
[2019-09-23] MEDS: sertraline 25mg tablet PO SCH (20:23)
[2019-09-23] MEDS: salt irrigation nasal spray 45 ML SPRAY NS SCH (20:34)
[2019-09-23] MEDS: azelastine Nasal Spray bottle NS SCH (20:34)
--- NOTE | 2019-09-24 05:54 | NUR ---
NURSING PROGRESS NOTE Legal hold: TCON Client on involuntary status for GD Report received from nurse Gail RN with use of SBAR Why are they here: Patient had been discharged previously with follow up at [facility] Team. Upon assessment by the [facility], it was determined patient was not able to obtain, food, longterm, or clothing and a 5150 for GD was written. Patient returned within hours of discharge. At time of return patient denied any symptoms related to his mental illness diagnosis of Schizophrenia. He continues to present with cognitive impairment which impedes his ability to care of himself, and requires multiple supports and external structures. Assessment What has happened this shift: Pt observed watching movies with peers in the group room at the beginning of shift. Pt spent the majority of the time he was awake this shift in the group room with peers and socializing appropriately. Pt's HR continues to elevate during NOC shift. Pt denies discomfort, agitation and anxiousness. He denies SI, HI, A/VH but presented preoccupied and responding to internal stimuli when he briefly paced the jama before bed. Patient is pleasant and cooperative with all care; compliant with all medications. PRN Nicotine lozenge provided upon request. Pt continues to snore loudly while resting and O2 sats 95% RA while asleep. Pt began nasal sprays this shift and tolerated well, no ASE reported or observed. S/I, H/I: Denies A/VH: Denies but appears to be responding to internal stimuli Sleep: Refer to sleep assessment ADL's: Independent Group attendance: No groups this shift Were meds taken: Yes Any med S/E: None observed, none reported Mental Status Exam Appearance: Neat, clean, well groomed and appropriately dressed for the unit. Eye contact: Direct Behavior: Watching movies and socializing with peers and staff appropriately. Speech: Clear, steady, audible. Mood: "good" Affect: Animated Thought process: Linear Thought Content: Discharge Cognition: Alert Insight: poor Judgment: poor Interventions PRN's used: Nicotine lozenge Therapeutic interventions: 1:1 assessment, monitored behaviors and need for intervention, encouragement to express thoughts and feelings, therapeutic conversation, medication administration/education/monitoring, positive reinforcement, Q 15 min safety checks. Restraints/seclusion/emergency medication: N/A Justification of Continued Inpatient Treatment: Pt is gravely disabled, he is on a TCON, he continues to need medication adjustment and monitoring and a safe and supportive environment, he has a hearing set for 09/26/19.
[2019-09-24 08:00] VITALS: BP 113/54
[2019-09-24] MEDS: CLOZAPINE 25 MG oral disintegrating tablet PO SCH ×2 (08:17→13:26)
[2019-09-24] MEDS: atomoxetine 40 MG capsule PO SCH (08:17)
[2019-09-24] MEDS: DOXYCYCLINE 100MG CAPSULE PO SCH (08:17)
[2019-09-24] MEDS: docusate sod 100mg capsule PO SCH (08:18)
[2019-09-24] MEDS: nicotine 21mg patch - 24 hr TD SCH (08:19)
[2019-09-24] MEDS: sennosides 8.6mg tablet PO SCH (08:23)
[2019-09-24] MEDS: pantoprazole 40mg Tablet.DR PO SCH (08:23)
[2019-09-24] MEDS: salt irrigation nasal spray 45 ML SPRAY NS SCH (08:24)
[2019-09-24] MEDS: azelastine Nasal Spray bottle NS SCH (08:24)
[2019-09-24] MEDS: JUVEN Shake w/Arg/Glut/Ca2+Bmb (Juven 19.3gm) pkt 240ml PO SCH ×3 (08:31→18:00)
--- NOTE | 2019-09-24 15:09 | NUR ---
NURSING PROGRESS NOTE: CHALO Legal hold: TCON Client on involuntary status for GD Report received from Avril Mueller RN with use of SBAR Why are they here: Patient had been discharged previously with follow up at [facility] Team. Upon assessment by the [facility], it was determined patient was not able to obtain, food, long term, or clothing and a 5150 for GD was written. Patient returned within hours of discharge. At time of return patient denied any symptoms related to his mental illness diagnosis of Schizophrenia. He continues to present with cognitive impairment which impedes his ability to care of himself, and requires multiple supports and external structures. Assessment What has happened this shift: Pt observed sleeping with eyes closed and snoring at change of shift. Once awake pt was found socializing appropriately with peers and watching tv. He reports sleeping well last night and denies any nightmares. Pt reports feeling well today and denies any needs or concerns. He denies SI, HI, A/VH but presented preoccupied and responding to internal stimuli occasionally. Pt denies any SEs to medications and none were objectively observed. He reports having regular BMs. S/I, H/I: Denies A/VH: Denies but appears to have internal stimuli Sleep: 4.5hrs NOC ADL's: Independent Group attendance: Were meds taken: Yes Any med S/E: None observed, none reported Mental Status Exam Appearance: Neat, clean, well-groomed and appropriately dressed for the unit. Eye contact: Direct Behavior: Watching tv and socializing with peers and staff appropriately Speech: Clear, normal rate & rhythm Mood: "Oh Im good." Affect: Animated, bright Thought process: Linear Thought Content: Boredom Cognition: Alert Insight: poor Judgment: poor Interventions PRN's used: Therapeutic interventions: 1:1 assessment, monitored behaviors and need for intervention, encouragement to express thoughts and feelings, therapeutic conversation, medication administration/education/monitoring, positive reinforcement, Q 15 min safety checks. Restraints/seclusion/emergency medication: N/A Justification of Continued Inpatient Treatment: Pt is gravely disabled, he is on a TCON, he continues to need medication adjustment and monitoring and a safe and supportive environment, he has a hearing set for 09/26/19.
[2019-09-24] MEDS: NICOTINE POLACRILEX 2 MG LOZENGE BC PRN (16:42)
[2019-09-24 20:00] VITALS: BP 117/76
[2019-09-24] MEDS ORDERED: propranolol 10mg tablet PO ONE (20:55)
[2019-09-24 21:31] VITALS: BP 117/76
[2019-09-25] MEDS: LORazepam 1 MG tablet PO PRN (00:50)
[2019-09-25] MEDS: salt irrigation nasal spray 45 ML SPRAY NS SCH ×3 (00:50→20:46)
[2019-09-25] MEDS: sennosides 8.6mg tablet PO SCH ×3 (00:50→20:24)
[2019-09-25] MEDS: azelastine Nasal Spray bottle NS SCH ×3 (00:50→20:46)
[2019-09-25] MEDS: clozapine 25mg tablet PO SCH ×2 (00:51→20:46)
[2019-09-25] MEDS: clozapine 100mg tablet PO SCH ×2 (00:51→20:24)
[2019-09-25] MEDS: docusate sod 100mg capsule PO SCH ×3 (00:51→20:24)
[2019-09-25] MEDS: sertraline 25mg tablet PO SCH ×2 (00:51→20:25)
--- NOTE | 2019-09-25 03:23 | NUR ---
NURSING PROGRESS NOTE Legal hold: TCON Client on involuntary status for GD Report received from nurse Ryenolds RN with use of SBAR Why are they here: Patient had been discharged previously with follow up at [facility] Team. Upon assessment by the [facility], it was determined patient was not able to obtain, food, care home, or clothing and a 5150 for GD was written. Patient returned within hours of discharge. At time of return patient denied any symptoms related to his mental illness diagnosis of Schizophrenia. He continues to present with cognitive impairment which impedes his ability to care of himself, and requires multiple supports and external structures. Assessment What has happened this shift: Pt observed pacing the jama briskly at the beginning of shift. Pt was not acknowledging anything said or asked. He refused Atarax and Ativan when offered at the beginning of shift. Pt continued to pace halls and occasionally stop at a shank sorter in the jama and mumble and turn away to punch at the air. Pt initially refused VS and assessments. He later went into group room for HS snacks and went back to pacing the jama and attempted to lay down briefly. Pt initially refused all HS medications. This expert medical writer reported to KERMIT and she was able to get VS from pt and HR continues to be elevated for NOC shift. Marleny Meyer ordered propranolol but pt refused medication reporting that it makes him SOB and continued to refuse his HS medications stating his stomach felt upset but refused PRNs to help. As peers started to go to bed pt sat down in group room and began watching TV. Pt watched a movie and later came and requested his medications stating, "I think I'm ready now." Pt agreed to taking PRN Ativan as he appeared anxious. Pt still did not want to talk about what is bothering him but he was more willing to hear the questions. Pt did not lay down until 0120 and he allowed this expert medical writer to place pulse ox. At this time pt continues to average 95% RA at rest and does not appear in respiratory distress. Pt respirations are even and non labored. He continues to snore loudly. S/I, H/I: Denies A/VH: Responding to internal stimuli Sleep: Refer to sleep assessment ADL's: Independent Group attendance: No groups this shift Were meds taken: Yes Any med S/E: Reports Propranolol makes him SOB-refused med Mental Status Exam Appearance: Neat, clean, well groomed and appropriately dressed for the unit. Eye contact: Avoidant Behavior: Pacing the jama, responding to internal stimuli, punching at the air Speech: Clear, steady, audible. Mood: "I'm alright" Affect: Agitated Thought process: Preoccupied Thought Content: Unable to assess. Cognition: Alert Insight: poor Judgment: poor Interventions PRN's used: Nicotine lozenge and Ativan Therapeutic interventions: 1:1 assessment, monitored behaviors and need for intervention, encouragement to express thoughts and feelings, therapeutic conversation, medication administration/education/monitoring, positive reinforcement, Q 15 min safety checks. Restraints/seclusion/emergency medication: N/A Justification of Continued Inpatient Treatment: Pt is gravely disabled, he is on a TCON, he continues to need medication adjustment and monitoring and a safe and supportive environment, he has a hearing set for 09/26/19.
[2019-09-25 08:00] VITALS: BP 100/53
[2019-09-25] MEDS: JUVEN Shake w/Arg/Glut/Ca2+Bmb (Juven 19.3gm) pkt 240ml PO SCH ×3 (08:00→18:19)
[2019-09-25] MEDS: DOXYCYCLINE 100MG CAPSULE PO SCH (08:23)
[2019-09-25] MEDS: pantoprazole 40mg Tablet.DR PO SCH (08:23)
[2019-09-25] MEDS: CLOZAPINE 25 MG oral disintegrating tablet PO SCH ×2 (08:23→12:36)
[2019-09-25] MEDS: atomoxetine 40 MG capsule PO SCH (08:30)
[2019-09-25] MEDS: nicotine 21mg patch - 24 hr TD SCH (08:33)
[2019-09-25] MEDS: NICOTINE POLACRILEX 2 MG LOZENGE BC PRN ×2 (14:09→18:19)
--- NOTE | 2019-09-25 15:53 | NUR ---
Placement [facility]'s office called requesting H & P for pt from both the hospitalist & psych care providers, SS faxed H & P to [facility] to facilitate placement services for pt. Shirin Carlos LCSW Addendum: 09/25/19 at 1555 by Shirin Carlos SS Amended: Links added.
--- NOTE | 2019-09-25 17:30 | NUR ---
NURSING PROGRESS NOTE Legal hold: TCON Client on involuntary status for GD Report received from nurse Panfilo RN with use of SBAR Why are they here: Patient had been discharged previously with follow up at [facility] Team. Upon assessment by the [facility], it was determined patient was not able to obtain, food, skilled nursing, or clothing and a 5150 for GD was written. Patient returned within hours of discharge. At time of return patient denied any symptoms related to his mental illness diagnosis of Schizophrenia. He continues to present with cognitive impairment which impedes his ability to care of himself, and requires multiple supports and external structures. Assessment What has happened this shift: Pt. asleep at start of shift. Pt. woken up for medications and breakfast. Pt. took all meds and ate all meals in community room. Pt. went back to sleep after breakfast. 1:1 done at bedside, pt. denies SI/HI, A/V hallucinations. Pt. reports feeling bored. Pt. states, If I wasnt here I would be hanging out and drinking with my friends. Pt. went to groups. RN discussed pt.s increased heart rate with pt.s provider as well as pt.s tendency to have hallucinations in the afternoon. Clozaril to be decreased at night and increased in the afternoon. Pt. napped in the afternoon. S/I, H/I: Denies A/VH: Denies Sleep: Pt. napped x2 ADL's: Independent Group attendance: Yes Were meds taken: Yes Any med S/E: None reported nor observed. Mental Status Exam Appearance: Neat, clean, well-groomed and appropriately dressed for the unit. Eye contact: Appropriate Behavior: withdrawn to room, seen in community room in group. Speech: WNL Mood: Euthymic with some anxiety. Affect: Congruent with mood. Thought process: Linear Thought Content: Circumstantial. Cognition: Alert Insight: poor Judgment: poor Interventions PRN's used: Nicotine lozenge and Ativan Therapeutic interventions: 1:1 assessment, monitored behaviors and need for intervention, encouragement to express thoughts and feelings, therapeutic conversation, medication administration/education/monitoring, positive reinforcement, Q 15 min safety checks. Restraints/seclusion/emergency medication: N/A Justification of Continued Inpatient Treatment: Pt is gravely disabled, he is on a TCON, he continues to need medication adjustment and monitoring and a safe and supportive environment, he has a hearing set for 09/26/19.
[2019-09-25 19:55] VITALS: BP 142/82
--- NOTE | 2019-09-25 23:48 | NUR ---
NURSING PROGRESS NOTE Legal hold: TCON Client on involuntary status for GD Report received from nurse Dominique RN with use of SBAR Why are they here: Patient had been discharged previously with follow up at [facility] Team. Upon assessment by the [facility], it was determined patient was not able to obtain, food, chcf, or clothing and a 5150 for GD was written. Patient returned within hours of discharge. At time of return patient denied any symptoms related to his mental illness diagnosis of Schizophrenia. He continues to present with cognitive impairment which impedes his ability to care of himself, and requires multiple supports and external structures. Assessment What has happened this shift: Pt was watching tv at change of shift. Pt appears anxious and is isolating to self. He is socializing less than usual with others. He states he has court tomorrow, was later overheard asking how much a bus ticket to [place] is? Pt is med compliant tonight. S/I, H/I: Denies A/VH: Denies Sleep: sleeps well at night ADL's: Independent Group attendance: Yes Were meds taken: Yes Any med S/E: None reported nor observed. Mental Status Exam Appearance: Neat, clean, well-groomed and appropriately dressed for the unit. Eye contact: Appropriate Behavior: withdrawn, isolating to self Speech: WNL Mood: anxious Affect: Congruent with mood. Thought process: Linear Thought Content: mentioned court tomorrow. Cognition: Alert Insight: poor Judgment: poor Interventions PRN's used: Therapeutic interventions: 1:1 assessment, monitored behaviors and need for intervention, encouragement to express thoughts and feelings, therapeutic conversation, medication administration/education/monitoring, positive reinforcement, Q 15 min safety checks. Restraints/seclusion/emergency medication: N/A Justification of Continued Inpatient Treatment: Pt is gravely disabled, he is on a TCON, he continues to need medication adjustment and monitoring and a safe and supportive environment, he has a hearing set for 09/26/19.
[2019-09-26 07:29] VITALS: BP 136/71
[2019-09-26] MEDS: atomoxetine 40 MG capsule PO SCH (07:38)
[2019-09-26] MEDS: pantoprazole 40mg Tablet.DR PO SCH (07:39)
[2019-09-26] MEDS: DOXYCYCLINE 100MG CAPSULE PO SCH (07:39)
[2019-09-26] MEDS: sennosides 8.6mg tablet PO SCH ×2 (07:39→20:32)
[2019-09-26] MEDS: docusate sod 100mg capsule PO SCH ×2 (07:39→20:34)
[2019-09-26] MEDS: azelastine Nasal Spray bottle NS SCH ×2 (07:40→20:34)
[2019-09-26] MEDS: salt irrigation nasal spray 45 ML SPRAY NS SCH ×2 (07:40→20:34)
[2019-09-26] MEDS: nicotine 21mg patch - 24 hr TD SCH (07:41)
[2019-09-26] MEDS: CLOZAPINE 25 MG oral disintegrating tablet PO SCH (07:44)
[2019-09-26] MEDS: JUVEN Shake w/Arg/Glut/Ca2+Bmb (Juven 19.3gm) pkt 240ml PO SCH ×4 (08:00→18:22)
--- NOTE | 2019-09-26 14:26 | NUR ---
PLACEMENT Called [place] office and spoke to Muriel to inquire about placement. Zachariah's packet is currently at [facility], [facility], and [facility]. Jemma Holbrook had questions about his current legal issues. Suggested Muriel gather that information from Public [employer]. MATTHIEU Strange
[2019-09-26] MEDS: CLOZAPINE 100 MG TAB.RAPDIS PO SCH (15:17)
--- NOTE | 2019-09-26 17:29 | NUR ---
NURSING PROGRESS NOTE Legal hold: TCON Client on involuntary status for GD Report received from nurse Yolanda RN with use of SBAR Why are they here: Patient had been discharged previously with follow up at [facility] Team. Upon assessment by the [facility], it was determined patient was not able to obtain, food, nursing home, or clothing and a 5150 for GD was written. Patient returned within hours of discharge. At time of return patient denied any symptoms related to his mental illness diagnosis of Schizophrenia. He continues to present with cognitive impairment which impedes his ability to care of himself, and requires multiple supports and external structures. Assessment What has happened this shift: Pt. asleep at start of shift. Pt. took medications and ate breakfast in community room. 1:1 done ate bedside. Pt. denies SI/HI, A/V hallucinations. Pt. reports some anxiety about court hearing today. Pt. picked up by his conservator today and driven to court where he was given the opportunity to protest his conservatorship. Pt. informed this RN that he decided not to protest. Pt. states, "I thought it was probably better for me to go to a correction". S/I, H/I: Denies A/VH: Denies Sleep: Pt. did not nap today. ADL's: Independent Group attendance: Yes Were meds taken: Yes Any med S/E: None reported nor observed. Mental Status Exam Appearance: Neat, clean, well-groomed and appropriately dressed wearing civilian clothing. Pt. shaved. Eye contact: Appropriate Behavior: Appropriate, conversing with peers and staff in the milieu. Speech: WNL Mood: Euthymic with some anxiety. Affect: Congruent with mood. Thought process: Linear Thought Content: Circumstantial. Cognition: A&Ox4 Insight: poor Judgment: poor Interventions PRN's used: None Therapeutic interventions: 1:1 assessment, monitored behaviors and need for intervention, encouragement to express thoughts and feelings, therapeutic conversation, medication administration/education/monitoring, positive reinforcement, Q 15 min safety checks. Restraints/seclusion/emergency medication: N/A Justification of Continued Inpatient Treatment: Pt is gravely disabled, he is on a TCON, he continues to need medication adjustment and monitoring and a safe and supportive environment.
[2019-09-26 20:00] VITALS: BP 117/66
[2019-09-26] MEDS: clozapine 100mg tablet PO SCH (20:29)
[2019-09-26] MEDS: sertraline 25mg tablet PO SCH (20:32)
[2019-09-26] MEDS: clozapine 25mg tablet PO SCH (20:34)
--- NOTE | 2019-09-27 01:43 | NUR ---
NURSING PROGRESS NOTE Legal hold: TCON Client on involuntary status for GD Report received from nurse Dominique GOULD with use of SBAR Why are they here: Patient had been discharged previously with follow up at [facility] Team. Upon assessment by the [facility] [place], it was determined patient was not able to obtain, food, detention, or clothing and a 5150 for GD was written. Patient returned within hours of discharge. At time of return patient denied any symptoms related to his mental illness diagnosis of Schizophrenia. He continues to present with cognitive impairment which impedes his ability to care of himself, and requires multiple supports and external structures. Assessment What has happened this shift: Pt was in the group room watching a movie tonight, pt is pleasant and cooperative, states he had a good and says he is now conserved. He is looking forward to getting placed. Pt asked about being conserved and states he thinks it will be good for him. S/I, H/I: Denies A/VH: Denies Sleep: sleeps well at night ADL's: Independent Group attendance: no evening groups Were meds taken: Yes Any med S/E: None reported nor observed. Mental Status Exam Appearance: Neat, clean, well-groomed and appropriately dressed wearing civilian clothing. Pt. shaved. Eye contact: good Behavior: calm, cooperative pleasant Speech: WNL Mood: Euthymic with some anxiety. Affect: Congruent with mood. Thought process: Linear Thought Content: Circumstantial. Cognition: A&Ox4 Insight: poor Judgment: poor Interventions PRN's used: None Therapeutic interventions: 1:1 assessment, monitored behaviors and need for intervention, encouragement to express thoughts and feelings, therapeutic conversation, medication administration/education/monitoring, positive reinforcement, Q 15 min safety checks. Restraints/seclusion/emergency medication: N/A Justification of Continued Inpatient Treatment: Pt is gravely disabled, he is on a TCON, he continues to need medication adjustment and monitoring and a safe and supportive environment.
[2019-09-27 07:27] VITALS: BP 102/60
[2019-09-27] MEDS: DOXYCYCLINE 100MG CAPSULE PO SCH (08:19)
[2019-09-27] MEDS: atomoxetine 40 MG capsule PO SCH (08:19)
[2019-09-27] MEDS: sennosides 8.6mg tablet PO SCH ×2 (08:19→20:30)
[2019-09-27] MEDS: docusate sod 100mg capsule PO SCH ×2 (08:19→20:30)
[2019-09-27] MEDS: CLOZAPINE 25 MG oral disintegrating tablet PO SCH (08:20)
[2019-09-27] MEDS: nicotine 21mg patch - 24 hr TD SCH (08:20)
[2019-09-27] MEDS: JUVEN Shake w/Arg/Glut/Ca2+Bmb (Juven 19.3gm) pkt 240ml PO SCH ×3 (08:20→18:03)
[2019-09-27] MEDS: azelastine Nasal Spray bottle NS SCH ×2 (08:20→20:30)
[2019-09-27] MEDS: pantoprazole 40mg Tablet.DR PO SCH (08:20)
[2019-09-27] MEDS: salt irrigation nasal spray 45 ML SPRAY NS SCH ×2 (08:20→20:30)
[2019-09-27] MEDS: CLOZAPINE 100 MG TAB.RAPDIS PO SCH (15:30)
--- NOTE | 2019-09-27 17:20 | NUR ---
NURSING PROGRESS NOTE Legal hold: LPS conserved. Client on involuntary status for GD Report received from nurse Yolanda RN with use of SBAR Why are they here: Patient had been discharged previously with follow up at [facility] Team. Upon assessment by the [facility], it was determined patient was not able to obtain, food, snf, or clothing and a 5150 for GD was written. Patient returned within hours of discharge. At time of return patient denied any symptoms related to his mental illness diagnosis of Schizophrenia. He continues to present with cognitive impairment which impedes his ability to care of himself, and requires multiple supports and external structures. Assessment What has happened this shift: Patient sleeping in this morning, and got up for breakfast, then back to bed. Pt. states that he is "out of it today", stating that he is fatigued. Spent the afternoon watching t.v. and attending groups. Patient is social in the afternoon with peers. Patient states that he is not disappointed with outcome of conservatorship. Pt. states that it is the best thing for him. S/I, H/I: Denies A/VH: Denies Sleep: Napped after breakfast. ADL's: Independent Group attendance: Yes, afternoon. Were meds taken: Yes Any med S/E: None reported nor observed. Mental Status Exam Appearance: Neat, clean in personal attire. Eye contact: Appropriate Behavior: Fatigued, moving slower today than usual. Speech: Clear, normal volume and rate. Mood: Depressed. Affect: Blunted. Thought process: Linear Thought Content: Circumstantial. Where he will DC. Cognition: A&Ox4 Insight: poor Judgment: poor Interventions PRN's used: None Therapeutic interventions: 1:1 assessment, monitored behaviors and need for intervention, encouragement to express thoughts and feelings, therapeutic conversation, medication administration/education/monitoring, positive reinforcement, Q 15 min safety checks. Restraints/seclusion/emergency medication: N/A Justification of Continued Inpatient Treatment: Pt is gravely disabled, LPS conserved, he continues to need medication adjustment and monitoring and a safe and supportive environment. Awaiting placement by conservator.
[2019-09-27 20:00] VITALS: BP 125/84
[2019-09-27] MEDS: clozapine 100mg tablet PO SCH (20:28)
[2019-09-27] MEDS: sertraline 25mg tablet PO SCH (20:29)
[2019-09-27] MEDS: clozapine 25mg tablet PO SCH (20:29)
--- NOTE | 2019-09-28 00:45 | NUR ---
NURSING PROGRESS NOTE Legal hold: TCON Client on involuntary status for GD Report received from nurse LUIS FERNANDO Farias with use of SBAR Why are they here: Patient had been discharged previously with follow up at [facility] Team. Upon assessment by the [facility] [place] [place], it was determined patient was not able to obtain, food, retirement, or clothing and a 5150 for GD was written. Patient returned within hours of discharge. At time of return patient denied any symptoms related to his mental illness diagnosis of Schizophrenia. He continues to present with cognitive impairment which impedes his ability to care of himself, and requires multiple supports and external structures. Assessment What has happened this shift: Pt observed walking the halls responding to internal stimuli for a short period of time. He is pleasant and smiles often. Pt attends HS snack and watches TV and socializes with peers appropriately. Pt denies SI/HI. Pt also denies AH/VH, but is seen responding to internal stimuli briefly. Pt's HR continues to elevate during NOC shift. Pt denies discomfort, agitation and anxiousness. S/I, H/I: Denies A/VH: Denies but appears to be responding to internal stimuli Sleep: Refer to sleep assessment ADL's: Independent Group attendance: No groups this shift Were meds taken: Yes Any med S/E: None observed, none reported Mental Status Exam Appearance: Neat, clean, well groomed and appropriately dressed for the unit. Eye contact: Direct Behavior: Watching movies and socializing with peers and staff appropriately. Speech: Clear, steady, audible. Mood: "good" Affect: Animated Thought process: Linear Thought Content: Discharge Cognition: Alert Insight: poor Judgment: poor Interventions PRN's used: NA Therapeutic interventions: 1:1 assessment, monitored behaviors and need for intervention, encouragement to express thoughts and feelings, therapeutic conversation, medication administration/education/monitoring, positive reinforcement, Q 15 min safety checks. Restraints/seclusion/emergency medication: N/A Justification of Continued Inpatient Treatment: Pt is gravely disabled, he is on a TCON, he continues to need medication adjustment and monitoring and a safe and supportive environment, he has a hearing set for 09/26/19.
[2019-09-28 08:28] VITALS: BP 96/48
[2019-09-28] MEDS: azelastine Nasal Spray bottle NS SCH ×2 (08:34→20:17)
[2019-09-28] MEDS: salt irrigation nasal spray 45 ML SPRAY NS SCH ×2 (08:34→20:16)
[2019-09-28] MEDS: DOXYCYCLINE 100MG CAPSULE PO SCH (08:35)
[2019-09-28] MEDS: nicotine 21mg patch - 24 hr TD SCH (08:35)
[2019-09-28] MEDS: CLOZAPINE 25 MG oral disintegrating tablet PO SCH (08:36)
[2019-09-28] MEDS: sennosides 8.6mg tablet PO SCH ×2 (08:36→20:17)
[2019-09-28] MEDS: pantoprazole 40mg Tablet.DR PO SCH (08:36)
[2019-09-28] MEDS: atomoxetine 40 MG capsule PO SCH (08:37)
[2019-09-28] MEDS: docusate sod 100mg capsule PO SCH ×2 (08:37→20:17)
[2019-09-28] MEDS: JUVEN Shake w/Arg/Glut/Ca2+Bmb (Juven 19.3gm) pkt 240ml PO SCH ×3 (08:38→18:03)
--- NOTE | 2019-09-28 14:33 | NUR ---
Reassessment: Pt PO 100% regular diet and Greyson shake meeting needs. EBONI narayanan/w RN regarding heart healthy diet in addition to changing ONS to ensure high protein per MD approval given pt has no wounds and TG 204 on admit. EBONI narayanan/crista RN regarding anti-hyperlipidemic per MD approval as well. LBM 09/25 receiving colace. Will continue to monitor. Rec: 1. advance diet per MD to heart healthy 2. Ensure high protein instead of Greyson per MD approval given no wounds(protein drink per pt request) 3. anti-hyperlipidemic per MD approval; TG 204 4. routine bowel care 5. wt per rx Addendum: 09/28/19 at [address] Amended: Links added.
[2019-09-28] MEDS: CLOZAPINE 100 MG TAB.RAPDIS PO SCH ×2 (16:21→16:22)
[2019-09-28 20:00] VITALS: BP 132/71
[2019-09-28] MEDS: clozapine 25mg tablet PO SCH (20:17)
[2019-09-28] MEDS: sertraline 25mg tablet PO SCH (20:17)
[2019-09-28] MEDS: clozapine 100mg tablet PO SCH (20:18)
[2019-09-28] MEDS: acetaminophen 325mg tablet PO PRN (20:18)
[2019-09-28] MEDS: atorvastatin 10mg tablet PO SCH (20:18)
--- NOTE | 2019-09-28 23:14 | NUR ---
NURSING PROGRESS NOTE Legal hold: TCON Client on involuntary status for GD Report received from nurse KERMIT Martinez with use of SBAR Why are they here: Patient had been discharged previously with follow up at [facility] Team. Upon assessment by the [facility], it was determined patient was not able to obtain, food, residential, or clothing and a 5150 for GD was written. Patient returned within hours of discharge. At time of return patient denied any symptoms related to his mental illness diagnosis of Schizophrenia. He continues to present with cognitive impairment which impedes his ability to care of himself, and requires multiple supports and external structures. Assessment What has happened this shift: Pt was in group room during shift change. When approached pt, he did not make eye contact and he did not appeared to be wanting to interact. Appeared very depressed. Later on he requested a Tylenol for headache. This was given with his HS meds which he took without any issues. Pt was cooperative during 1:1 physical assessment and during this time, pt's affect appeared more brighter. Was smiling and interacting more. Pt denies any S/I, H/I, A/H, and V/H. Pt did not appear to be responding to internal stimuli per this shift. After medication pass, pt requested to have his personal banking officer for his monitor. He sat in the TV room for some time before going to bed and is currently sleeping. Will continue to monitor. S/I, H/I: Denies A/VH: Denies and is not observed responding to internal stimuli Sleep: Currently sleeping, see sleep assessment for total hours. ADL's: Independent Group attendance: No groups during lieutenant shift supervisor Were meds taken: Yes Any med S/E: None observed, none reported Mental Status Exam Appearance: Appropriate, wearing green scrubs Eye contact: minimal at first, then it was direct Behavior: Guarded, then became more cooperative Speech: Minimal, responds only to questions, normal rate and rhythm Mood: "good" appears depressed as evidenced by a down cast expression Affect: Flat with intermitting brightening. Thought process: Linear Thought Content: Headache Cognition: Alert and oriented X3 Insight: poor Judgment: poor Interventions PRN's used: NA Therapeutic interventions: 1:1 assessment, monitored behaviors and need for intervention, encouragement to express thoughts and feelings, therapeutic conversation, medication administration/education/monitoring, positive reinforcement, Q 15 min safety checks. Restraints/seclusion/emergency medication: N/A Justification of Continued Inpatient Treatment: Pt is gravely disabled, he is on a TCON, he continues to need medication adjustment and monitoring and a safe and supportive environment, he has a hearing set for 09/26/19.
[2019-09-29 07:24] VITALS: BP 109/54
[2019-09-29] MEDS: CLOZAPINE 25 MG oral disintegrating tablet PO SCH (08:26)
[2019-09-29] MEDS: pantoprazole 40mg Tablet.DR PO SCH (08:26)
[2019-09-29] MEDS: docusate sod 100mg capsule PO SCH ×2 (08:26→20:31)
[2019-09-29] MEDS: DOXYCYCLINE 100MG CAPSULE PO SCH (08:26)
[2019-09-29] MEDS: sennosides 8.6mg tablet PO SCH ×2 (08:26→20:31)
[2019-09-29] MEDS: atomoxetine 40 MG capsule PO SCH (08:26)
[2019-09-29] MEDS: azelastine Nasal Spray bottle NS SCH ×2 (08:27→20:31)
[2019-09-29] MEDS: nicotine 21mg patch - 24 hr TD SCH (08:27)
[2019-09-29] MEDS: salt irrigation nasal spray 45 ML SPRAY NS SCH ×2 (08:27→20:31)
[2019-09-29] MEDS: JUVEN Shake w/Arg/Glut/Ca2+Bmb (Juven 19.3gm) pkt 240ml PO SCH ×3 (08:29→17:33)
[2019-09-29] MEDS: NICOTINE POLACRILEX 2 MG LOZENGE BC PRN (17:52)
[2019-09-29 19:19] VITALS: BP 103/61
[2019-09-29] MEDS: LORazepam 1 MG tablet PO PRN (20:00)
[2019-09-29] MEDS: sertraline 25mg tablet PO SCH (20:31)
[2019-09-29] MEDS: atorvastatin 10mg tablet PO SCH (20:31)
[2019-09-29] MEDS: clozapine 25mg tablet PO SCH (20:32)
[2019-09-29] MEDS: clozapine 100mg tablet PO SCH (20:32)
--- NOTE | 2019-09-30 01:01 | NUR ---
NURSING PROGRESS NOTE Legal hold: TCON Client on involuntary status for GD Report received from nurse KERMIT Martinez with use of SBAR Why are they here: Patient had been discharged previously with follow up at [facility] Team. Upon assessment by the [facility], it was determined patient was not able to obtain, food, intermediate, or clothing and a 5150 for GD was written. Patient returned within hours of discharge. At time of return patient denied any symptoms related to his mental illness diagnosis of Schizophrenia. He continues to present with cognitive impairment which impedes his ability to care of himself, and requires multiple supports and external structures. Assessment What has happened this shift: Pt was observed in group room watching TV during shift change. Pt's affect was appeared brighter as he was smiling and joking with this leader writer. Pt later on was pacing the isles and was displaying increased agitation and was responding to constant internal stimuli. Pt was offered and Ativan and this was given with good effect as he calmed down quite a bit. Pt was cooperative during 1:1 physical assessment and took all his HS meds without any issues. Pt is denying any hallucinations, stating "not right now" as he turns his gaze and waves his hand as if there was something there. When asked what he was waving at, he just smiles and says, nothing. Pt's heart rate continues to be elevated (125) and he also complains of shortness of breath. His lungs are clear and oxygen saturation is WNL. Pt later then moved to the TV room where he had his monitor charged and requested remote for TV to watch [employer]. At round 2200 pt decides to return to his room and slept without any issues. S/I, H/I: Denies A/VH: Denies but does appear to be responding to internal stimuli Sleep: Currently sleeping, see sleep assessment for total hours. ADL's: Independent, requires some prompting Group attendance: No groups during steward/stewardess night Were meds taken: Yes Any med S/E: None observed, none reported Mental Status Exam Appearance: Some what disheveled, wearing green scrub pants and dirty shirt Eye contact: Appropriate Behavior: Cooperative, agitated Speech: Normal rate and rhythm Mood: "Good" Affect: congruent with mood Thought process: Disorganized, but linear when assessing Thought Content: Delusions, talking to someone that is not there Cognition: Alert and oriented X3 Insight: poor Judgment: poor Interventions PRN's used: NA Therapeutic interventions: 1:1 assessment, monitored behaviors and need for intervention, encouragement to express thoughts and feelings, therapeutic conversation, medication administration/education/monitoring, positive reinforcement, Q 15 min safety checks. Restraints/seclusion/emergency medication: N/A Justification of Continued Inpatient Treatment: Pt is gravely disabled, he is on a TCON, he continues to need medication adjustment and monitoring and a safe and supportive environment, he has a hearing set for 09/26/19.
[2019-09-30] MEDS: salt irrigation nasal spray 45 ML SPRAY NS SCH ×2 (08:00→20:50)
[2019-09-30] MEDS: JUVEN Shake w/Arg/Glut/Ca2+Bmb (Juven 19.3gm) pkt 240ml PO SCH ×3 (08:00→17:57)
[2019-09-30] MEDS: azelastine Nasal Spray bottle NS SCH ×2 (08:00→20:50)
[2019-09-30] MEDS ORDERED: atomoxetine 40 MG capsule PO SCH (08:00)
[2019-09-30] MEDS: nicotine 21mg patch - 24 hr TD SCH (08:14)
[2019-09-30] MEDS: DOXYCYCLINE 100MG CAPSULE PO SCH (08:14)
[2019-09-30] MEDS: CLOZAPINE 25 MG oral disintegrating tablet PO SCH (08:15)
[2019-09-30] MEDS: sennosides 8.6mg tablet PO SCH ×2 (08:15→20:50)
[2019-09-30] MEDS: pantoprazole 40mg Tablet.DR PO SCH (08:15)
[2019-09-30] MEDS: docusate sod 100mg capsule PO SCH ×2 (08:15→20:50)
[2019-09-30 08:21] VITALS: BP 117/66
[2019-09-30] MEDS ORDERED: atomoxetine 40 MG capsule PO ONE (08:55)
--- NOTE | 2019-09-30 14:31 | NUR ---
NURSING PROGRESS NOTE Legal hold: LPS Client on involuntary status for GD Report received from nurse KERMIT Sweet with use of SBAR Why are they here: Patient had been discharged previously with follow up at [facility] Team. Upon assessment by the [facility], it was determined patient was not able to obtain, food, detention, or clothing and a 5150 for GD was written. Patient returned within hours of discharge. At time of return patient denied any symptoms related to his mental illness diagnosis of Schizophrenia. He continues to present with cognitive impairment which impedes his ability to care of himself, and requires multiple supports and external structures. Assessment What has happened this shift: Up for breakfast, then back to bed for long napping. Stated he is looking forward to placement as he is often times " a little bit bored" here. Denies hallucinations today but admits that he does here voices at times. He agreed to tell nurse if voices returned today. Ate all meals pleasantly with others and watched afternoon movie. He is cooperative and smiling. S/I, H/I: Denies A/VH: Denies Sleep: Napped ADL's: Independent Group attendance: No Were meds taken: Yes Any med S/E: None observed, none reported Mental Status Exam Appearance: Neat and clean Eye contact: fair Behavior: Cooperative, smiling Speech: Normal Mood: happy Affect: smiling Thought process: linear Thought Content: Thinking about food Cognition: Alert Insight: poor Judgment: poor Interventions PRN's used: NA Therapeutic interventions: 1:1 assessment, monitored behaviors and need for intervention, encouragement to express thoughts and feelings, therapeutic conversation, medication administration/education/monitoring, positive reinforcement, Q 15 min safety checks. Restraints/seclusion/emergency medication: N/A Justification of Continued Inpatient Treatment: Pt is gravely disabled, he is on a TCON, he continues to need medication adjustment and monitoring and a safe and supportive environment, he has a hearing set for 09/26/19.
[2019-09-30] MEDS: CLOZAPINE 100 MG TAB.RAPDIS PO SCH (14:42)
[2019-09-30] MEDS: OLANZAPINE 5 MG TABLET PO PRN (16:19)
[2019-09-30 19:29] VITALS: BP 144/82
[2019-09-30] MEDS: clozapine 100mg tablet PO SCH (20:51)
[2019-09-30] MEDS: clozapine 25mg tablet PO SCH (20:51)
[2019-09-30] MEDS: atorvastatin 10mg tablet PO SCH (20:51)
[2019-09-30] MEDS: sertraline 25mg tablet PO SCH (20:51)
[2019-09-30] MEDS: hydrOXYzine 25 MG tablet PO PRN (23:30)
--- NOTE | 2019-09-30 23:51 | NUR ---
NURSING PROGRESS NOTE Legal hold: LPS Client on involuntary status for GD Report received from nurse KERMIT Martinez with use of SBAR Why are they here: Patient had been discharged previously with follow up at [facility] Team. Upon assessment by the [facility], it was determined patient was not able to obtain, food, correction, or clothing and a 5150 for GD was written. Patient returned within hours of discharge. At time of return patient denied any symptoms related to his mental illness diagnosis of Schizophrenia. He continues to present with cognitive impairment which impedes his ability to care of himself, and requires multiple supports and external structures. Assessment What has happened this shift: Pt was in TV room during shift change watching TV. Pt states that he had a good day, he attended groups, and played video games. However he was complaining about having hiccups for most of the day which was annoying. Pt was cooperative during 1:1 physical assessment and took all his HS med without any issues. Pt denies any A/VH however he is observed showing some internal stimuli. There was minimal agitation as he was not observed pacing the isles per this shift. Pt interacted well with this jingle writer as he asked about [place] and if was a good place to live. States that he is [facility], came here when he was 14 years old. Pt attempted to go to sleep early but later came out of his room and went to group room and stayed til after 00:10 watching TV. States that he couldn't sleep. He was also complaining of the hiccups again. Offered patient something to help him sleep and took An Atarax. Pt returned to his room and is attempting to go to sleep. S/I, H/I: Denies A/VH: Denies but does appear to be responding to internal stimuli Sleep: Difficulty falling asleep, see sleep assessment for total hours ADL's: Independent, requires some prompting Group attendance: None during shift supervisor rn Were meds taken: Yes Any med S/E: None observed, none reported Mental Status Exam Appearance: Somewhat disheveled, wearing dirty shirt Eye contact: good Behavior: Cooperative, smiling Speech: Soft, slow to respond Mood: "good" Affect: Restricted Thought process: Disorganized Thought Content: Hiccups, not being able to sleep Cognition: Alert and oriented x3 Insight: poor Judgment: poor Interventions PRN's used: NA Therapeutic interventions: 1:1 assessment, monitored behaviors and need for intervention, encouragement to express thoughts and feelings, therapeutic conversation, medication administration/education/monitoring, positive reinforcement, Q 15 min safety checks. Restraints/seclusion/emergency medication: N/A Justification of Continued Inpatient Treatment: Pt is gravely disabled, he is on a TCON, he continues to need medication adjustment and monitoring and a safe and supportive environment, he has a hearing set for 09/26/19.
[2019-10-01 08:00] VITALS: BP 103/58
[2019-10-01] MEDS: docusate sod 100mg capsule PO SCH ×2 (08:02→21:00)
[2019-10-01] MEDS: sennosides 8.6mg tablet PO SCH ×2 (08:02→21:01)
[2019-10-01] MEDS: pantoprazole 40mg Tablet.DR PO SCH (08:02)
[2019-10-01] MEDS: DOXYCYCLINE 100MG CAPSULE PO SCH (08:03)
[2019-10-01] MEDS: nicotine 21mg patch - 24 hr TD SCH (08:03)
[2019-10-01] MEDS: CLOZAPINE 25 MG oral disintegrating tablet PO SCH (08:03)
[2019-10-01] MEDS: azelastine Nasal Spray bottle NS SCH ×2 (08:07→20:59)
[2019-10-01] MEDS: salt irrigation nasal spray 45 ML SPRAY NS SCH ×2 (08:08→20:59)
[2019-10-01] MEDS: JUVEN Shake w/Arg/Glut/Ca2+Bmb (Juven 19.3gm) pkt 240ml PO SCH ×3 (08:54→18:00)
[2019-10-01] MEDS: CLOZAPINE 100 MG TAB.RAPDIS PO SCH (15:58)
--- NOTE | 2019-10-01 16:54 | NUR ---
NURSING PROGRESS NOTE Legal hold: LPS Client on involuntary status for GD Report received from nurse KERMIT Sweet with use of SBAR Why are they here: Patient had been discharged previously with follow up at [facility] Team. Upon assessment by the [facility] [place], it was determined patient was not able to obtain, food, care home, or clothing and a 5150 for GD was written. Patient returned within hours of discharge. At time of return patient denied any symptoms related to his mental illness diagnosis of Schizophrenia. He continues to present with cognitive impairment which impedes his ability to care of himself, and requires multiple supports and external structures. Assessment What has happened this shift: Received Pt sleeping w/o distress in bed at beginning of shift. He awoke and sat in community room watching music videos waiting for breakfast. He took AM meds w/o issue and ate breakfast with others. Pt is bored and in euthymic mood. Napped between meals and sat in hallway chair for a while. He charged his ankle monitor and talked with other Pts during part of a movie. Pt is calm and cooperative and awaits his placement. S/I, H/I: Denies A/VH: Denies Sleep: Napped ADL's: Independent Group attendance: No Were meds taken: Yes Any med S/E: No Mental Status Exam Appearance: Neat and clean Eye contact: fair Behavior: Cooperative, Calm Speech: Normal Mood: Euthymic, bored Affect: Flat Thought process: Linear Thought Content: Meals and movies Cognition: Alert Insight: poor Judgment: poor Interventions PRN's used: NA Therapeutic interventions: 1:1 assessment, monitored behaviors and need for intervention, encouragement to express thoughts and feelings, therapeutic conversation, medication administration/education/monitoring, positive reinforcement, Q 15 min safety checks. Restraints/seclusion/emergency medication: N/A Justification of Continued Inpatient Treatment: Pt is gravely disabled, he is on a TCON, he continues to need medication adjustment and monitoring and a safe and supportive environment, he has a hearing set for 09/26/19.
[2019-10-01 19:21] VITALS: BP 120/77
[2019-10-01] MEDS: sertraline 25mg tablet PO SCH (21:00)
[2019-10-01] MEDS: atorvastatin 10mg tablet PO SCH (21:00)
[2019-10-01] MEDS: clozapine 100mg tablet PO SCH (21:01)
[2019-10-01] MEDS: clozapine 25mg tablet PO SCH (21:01)
--- NOTE | 2019-10-02 01:04 | NUR ---
NURSING PROGRESS NOTE Legal hold: LPS Client on involuntary status for GD Report received from nurse KERMIT Fox with use of SBAR Why are they here: Patient had been discharged previously with follow up at [facility] Team. Upon assessment by the [facility], it was determined patient was not able to obtain, food, correction, or clothing and a 5150 for GD was written. Patient returned within hours of discharge. At time of return patient denied any symptoms related to his mental illness diagnosis of Schizophrenia. He continues to present with cognitive impairment which impedes his ability to care of himself, and requires multiple supports and external structures. Assessment What has happened this shift: Pt was observed in group room watching TV during shift change. When asked what he had done today, he sated that he attended group and watched several movies. Asked pt what groups did he attend, he states I don't remember. Pt is very animated, makes faces, and smiles constantly. Pt was cooperative during 1:1 and took all his medications without any issues. He enforces visual hallucinations and states that he sees objects in the line that move across but doesn't know what they are. There was minimal internal stimuli observed per this shift. Pt spent quite some time after medication pass in TV room watching TV and socializing appropriately with other patients and staff. At around 2330 pt went to his room and slept for the rest of the night. S/I, H/I: Denies A/VH: Enforces visual hallucinations Sleep: Currently sleeping, see sleep assessment for total hours ADL's: Independent, requires some prompting Group attendance: None during shift superintendent caustic cresylate Were meds taken: Yes Any med S/E: None noted or observed Mental Status Exam Appearance: Somewhat disheveled, wearing dirty shirt, unkempt hair Eye contact: Good Behavior: Cooperative, animated Speech: Normal rate and rhythm Mood: "Just doing well" Affect: Expansive at times Thought process: Linear Thought Content: Watching TV Cognition: Alert and oriented X3 Insight: poor Judgment: poor Interventions PRN's used: NA Therapeutic interventions: 1:1 assessment, monitored behaviors and need for intervention, encouragement to express thoughts and feelings, therapeutic conversation, medication administration/education/monitoring, positive reinforcement, Q 15 min safety checks. Restraints/seclusion/emergency medication: N/A Justification of Continued Inpatient Treatment: Pt is gravely disabled, he is on a TCON, he continues to need medication adjustment and monitoring and a safe and supportive environment, he has a hearing set for 09/26/19.
[2019-10-02 07:03] VITALS: BP 127/68
[2019-10-02] MEDS ORDERED: atomoxetine 40 MG capsule PO SCH (08:00)
[2019-10-02] MEDS: docusate sod 100mg capsule PO SCH ×2 (08:07→20:46)
[2019-10-02] MEDS: azelastine Nasal Spray bottle NS SCH ×2 (08:07→20:45)
[2019-10-02] MEDS: salt irrigation nasal spray 45 ML SPRAY NS SCH ×2 (08:07→20:45)
[2019-10-02] MEDS: nicotine 21mg patch - 24 hr TD SCH (08:07)
[2019-10-02] MEDS: CLOZAPINE 25 MG oral disintegrating tablet PO SCH (08:08)
[2019-10-02] MEDS: sennosides 8.6mg tablet PO SCH ×2 (08:08→20:46)
[2019-10-02] MEDS: DOXYCYCLINE 100MG CAPSULE PO SCH (08:08)
[2019-10-02] MEDS: pantoprazole 40mg Tablet.DR PO SCH (08:08)
[2019-10-02] MEDS: JUVEN Shake w/Arg/Glut/Ca2+Bmb (Juven 19.3gm) pkt 240ml PO SCH ×3 (08:09→18:00)
--- NOTE | 2019-10-02 10:26 | NUR ---
PLACEMENT Spoke to Gina [facility] for an update on placement. Zachariah's packet is at [facility], [facility], and [facility]. MATTHIEU Strange
[2019-10-02] MEDS ORDERED: atomoxetine 25mg capsule PO ONE (12:54)
[2019-10-02] MEDS: CLOZAPINE 100 MG TAB.RAPDIS PO SCH (16:20)
--- NOTE | 2019-10-02 17:36 | NUR ---
NURSING PROGRESS NOTE Legal hold: LPS Client on involuntary status for GD Report received from LUIS FERNANDO Miranda with use of SBAR Why are they here: Patient had been discharged previously with follow up at [facility] Team. Upon assessment by the [facility], it was determined patient was not able to obtain, food, intermediate, or clothing and a 5150 for GD was written. Patient returned within hours of discharge. At time of return patient denied any symptoms related to his mental illness diagnosis of Schizophrenia. He continues to present with cognitive impairment which impedes his ability to care of himself, and requires multiple supports and external structures. Assessment What has happened this shift: Pt up and visible on the unit. Pt went to both groups and participated and went to all meals. Pt affect is blunted and he appears internally preoccupied or depressed, but he denied both and stated he is just thinking about his being conserved and wondering where he will end up being placed. Pt also denies S.I. Pt did not initiate much interaction with others outside of groups. S/I, H/I: Denies A/VH: Denies Sleep: Napped ADL's: Independent Group attendance: No Were meds taken: Yes Any med S/E: No Mental Status Exam Appearance: Neat and clean Eye contact: fair Behavior: Cooperative, Calm Speech: Normal Mood: Euthymic, bored Affect: Flat Thought process: Linear Thought Content: Meals and movies Cognition: Alert Insight: poor Judgment: poor Interventions PRN's used: NA Therapeutic interventions: 1:1 assessment, monitored behaviors and need for intervention, encouragement to express thoughts and feelings, therapeutic conversation, medication administration/education/monitoring, positive reinforcement, Q 15 min safety checks. Restraints/seclusion/emergency medication: N/A Justification of Continued Inpatient Treatment: Pt is gravely disabled, he is on a TCON, he continues to need medication adjustment and monitoring and a safe and supportive environment, he has a hearing set for 09/26/19.
[2019-10-02 19:33] VITALS: BP 128/79
[2019-10-02] MEDS: clozapine 100mg tablet PO SCH (20:45)
[2019-10-02] MEDS: clozapine 25mg tablet PO SCH (20:46)
[2019-10-02] MEDS: sertraline 25mg tablet PO SCH (20:46)
[2019-10-02] MEDS: atorvastatin 10mg tablet PO SCH (20:46)
[2019-10-02] MEDS: acetaminophen 325mg tablet PO PRN (20:56)
--- NOTE | 2019-10-03 00:13 | NUR ---
NURSING PROGRESS NOTE Legal hold: LPS Client on involuntary status for GD Report received from nurse KERMIT Fox with use of SBAR Why are they here: Patient had been discharged previously with follow up at [facility] Team. Upon assessment by the [facility], it was determined patient was not able to obtain, food, group home, or clothing and a 5150 for GD was written. Patient returned within hours of discharge. At time of return patient denied any symptoms related to his mental illness diagnosis of Schizophrenia. He continues to present with cognitive impairment which impedes his ability to care of himself, and requires multiple supports and external structures. Assessment What has happened this shift: Pt was observed in TV room during shift change. When asked how his day had been he sates that it was good. He went to groups and went outside. Pt states jokingly "they should allow people to smoke here." Also states that the amount that he gets to spent outside is not enough . Pt was cooperative during 1:1 physical assessment and took all his HS medications without any problems. Pt denies any AV/H and is not observed responding to internal stimuli. Is not pacing the halls and is socializing appropriately with other patients. Pt c/o of headache and requested Tylenol. This was given with good effect. Encouraged pt to try and sleep early. 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 Were meds taken: Yes Any med S/E: None noted or observed Mental Status Exam Appearance: disheveled, wearing dirty shirt, unkempt hair Eye contact: Good Behavior: Cooperative, calm Speech: Normal rate and rhythm Mood: "good" Affect: Bright Thought process: Linear Thought Content: Not being able to smoke, not spending enough time outside Cognition: Alert and oriented X3 Insight: poor Judgment: poor Interventions PRN's used: NA Therapeutic interventions: 1:1 assessment, monitored behaviors and need for intervention, encouragement to express thoughts and feelings, therapeutic conversation, medication administration/education/monitoring, positive reinforcement, Q 15 min safety checks. Restraints/seclusion/emergency medication: N/A Justification of Continued Inpatient Treatment: Pt is gravely disabled, he is on a TCON, he continues to need medication adjustment and monitoring and a safe and supportive environment, he has a hearing set for 09/26/19.
[2019-10-03 07:42] VITALS: BP 120/76
[2019-10-03] MEDS: JUVEN Shake w/Arg/Glut/Ca2+Bmb (Juven 19.3gm) pkt 240ml PO SCH ×3 (08:00→18:24)
[2019-10-03] MEDS: nicotine 21mg patch - 24 hr TD SCH ×2 (08:07→08:59)
[2019-10-03] MEDS: DOXYCYCLINE 100MG CAPSULE PO SCH (08:58)
[2019-10-03] MEDS: pantoprazole 40mg Tablet.DR PO SCH (08:58)
[2019-10-03] MEDS: CLOZAPINE 25 MG oral disintegrating tablet PO SCH (08:58)
[2019-10-03] MEDS: docusate sod 100mg capsule PO SCH ×2 (08:59→20:23)
[2019-10-03] MEDS: benztropine 1mg tablet PO PRN (08:59)
[2019-10-03] MEDS: sennosides 8.6mg tablet PO SCH ×2 (08:59→20:23)
[2019-10-03] MEDS: salt irrigation nasal spray 45 ML SPRAY NS SCH ×2 (09:00→20:22)
[2019-10-03] MEDS: azelastine Nasal Spray bottle NS SCH ×2 (09:00→20:23)
[2019-10-03] MEDS: atomoxetine 25mg capsule PO SCH (09:10)
--- NOTE | 2019-10-03 17:13 | NUR ---
NURSING PROGRESS NOTE Legal hold: LPS conserved Client on involuntary status for GD Report received from LUIS FERNANDO Guerrero with use of SBAR Why are they here: Patient had been discharged previously with follow up at [facility] Team. Upon assessment by the [facility], it was determined patient was not able to obtain, food, nursing home, or clothing and a 5150 for GD was written. Patient returned within hours of discharge. At time of return patient denied any symptoms related to his mental illness diagnosis of Schizophrenia. He continues to present with cognitive impairment which impedes his ability to care of himself, and requires multiple supports and external structures. Assessment What has happened this shift: Pt in bed at start of shift. Up for breakfast. Paces hallways with a big smile throughout the day. Some psychomotor agitation seen in the afternoon e.g. swinging his arms gritting teeth. S/I, H/I: Denies A/VH: Denies Sleep: Naps on and off throughout the day ADL's: Independent Group attendance: No Were Meds taken: Yes Any med S/E: No Mental Status Exam Appearance: Clean; appropriately dressed Eye contact: Fair Behavior: Cooperative, Calm Speech: Normal Mood: Euthymic Affect: Flat Thought process: Linear Thought Content: Food Cognition: Alert Insight: Poor Judgment: Poor Interventions PRN's used: NA Therapeutic interventions: 1:1 assessment in am; encouragement given to go and participate in groups; medication administration/education/monitoring, Q 15 min safety checks. Restraints/seclusion/emergency medication: N/A Justification of Continued Inpatient Treatment: Pt is gravely disabled, he is on a TCON, he continues to need medication adjustment and monitoring and a safe and supportive environment, he has a hearing set for 09/26/19.
[2019-10-03] MEDS: CLOZAPINE 100 MG TAB.RAPDIS PO SCH (18:10)
[2019-10-03 20:00] VITALS: BP 105/60
[2019-10-03] MEDS: clozapine 25mg tablet PO SCH (20:23)
[2019-10-03] MEDS: atorvastatin 10mg tablet PO SCH (20:23)
[2019-10-03] MEDS: clozapine 100mg tablet PO SCH (20:24)
--- NOTE | 2019-10-04 01:04 | NUR ---
NURSING PROGRESS NOTE Legal hold: LPS Client on involuntary status for GD Report received from nurse KERMIT Fox with use of SBAR Why are they here: Patient had been discharged previously with follow up at [facility] Team. Upon assessment by the [facility], it was determined patient was not able to obtain, food, long term, or clothing and a 5150 for GD was written. Patient returned within hours of discharge. At time of return patient denied any symptoms related to his mental illness diagnosis of Schizophrenia. He continues to present with cognitive impairment which impedes his ability to care of himself, and requires multiple supports and external structures. Assessment What has happened this shift: The patient was in the hallway at shift change. He says he went to groups, "but I can't remember what was talked about." The patient c/o extreme boredom, "I don't even get to spend enough time outside, and there's nothing to do here." The patient is cooperative and smiles a lot. He spends time in the group room with other clients, but is usually watching tv. The patient took his HS meds and went to bed. He denies AV/H or SI. S/I, H/I: Denies A/VH: Denies Sleep: See sleep assessment ADL's: Independent. Group attendance: No groups at night. Were meds taken: Yes Any med S/E: None noted or observed Mental Status Exam Appearance: Husky man with short hair, wearing street clothes. Eye contact: Good Behavior: Cooperative Speech: Normal rate and rhythm Mood: "Good" Affect: Bright Thought process: Linear Thought Content: Being bored. Cognition: Alert and oriented X3 Insight: poor Judgment: poor Interventions PRN's used: NA Therapeutic interventions: 1:1 assessment, monitored behaviors and need for intervention, encouragement to express thoughts and feelings, therapeutic conversation, medication administration/education/monitoring, positive reinforcement, Q 15 min safety checks. Restraints/seclusion/emergency medication: N/A Justification of Continued Inpatient Treatment: Pt is gravely disabled, he is on a TCON, he continues to need medication adjustment and monitoring and a safe and supportive environment, he has a hearing set for 09/26/19.
[2019-10-04 07:45] VITALS: BP 90/60
[2019-10-04] MEDS: pantoprazole 40mg Tablet.DR PO SCH (08:14)
[2019-10-04] MEDS: CLOZAPINE 25 MG oral disintegrating tablet PO SCH (08:14)
[2019-10-04] MEDS: sennosides 8.6mg tablet PO SCH ×2 (08:14→20:31)
[2019-10-04] MEDS: docusate sod 100mg capsule PO SCH ×2 (08:14→20:31)
[2019-10-04] MEDS: salt irrigation nasal spray 45 ML SPRAY NS SCH ×2 (08:14→20:31)
[2019-10-04] MEDS: azelastine Nasal Spray bottle NS SCH ×2 (08:14→20:31)
[2019-10-04] MEDS: DOXYCYCLINE 100MG CAPSULE PO SCH (08:14)
[2019-10-04] MEDS: atomoxetine 25mg capsule PO SCH (08:15)
[2019-10-04] MEDS: JUVEN Shake w/Arg/Glut/Ca2+Bmb (Juven 19.3gm) pkt 240ml PO SCH ×3 (08:15→18:00)
[2019-10-04] MEDS: nicotine 21mg patch - 24 hr TD SCH (08:16)
[2019-10-04] MEDS: CLOZAPINE 100 MG TAB.RAPDIS PO SCH (15:18)
[2019-10-04] MEDS: LORazepam 1 MG tablet PO PRN (15:19)
--- NOTE | 2019-10-04 16:07 | NUR ---
NURSING PROGRESS NOTE Legal hold: LPS conserved Client on involuntary status for GD Report received from LUIS FERNANDO Guerrero with use of SBAR Why are they here: Patient had been discharged previously with follow up at [facility] Team. Upon assessment by the [facility], it was determined patient was not able to obtain, food, intermediate, or clothing and a 5150 for GD was written. Patient returned within hours of discharge. At time of return patient denied any symptoms related to his mental illness diagnosis of Schizophrenia. He continues to present with cognitive impairment which impedes his ability to care of himself, and requires multiple supports and external structures. Assessment What has happened this shift: Pt in bed asleep at start of shift. Arouses easily for breakfast. Paces hallways smiling with inappropriate laughter and swinging his arms RIS speaking loudly. PRN ativan given with his 1500 Clozapine. S/I, H/I: Denies A/VH: Yes Sleep: Naps on and off throughout the day ADL's: Independent Group attendance: No Were Meds taken: Yes Any med S/E: No Mental Status Exam Appearance: Same clothes as yesterday; encouraged shower Eye contact: Fair Behavior: Psychomotor agitation Speech: Normal Mood: Euthymic Affect: Flat Thought process: Linear Thought Content: RIS Cognition: Alert Insight: Poor Judgment: Poor Interventions PRN's used: NA Therapeutic interventions: AM assessment; prompts to shower and attend groups and get up for meals; medication administration/education/monitoring, Q 15 min safety checks. Restraints/seclusion/emergency medication: N/A Justification of Continued Inpatient Treatment: Pt is gravely disabled, he is on a TCON, he continues to need medication adjustment and monitoring and a safe and supportive environment.
[2019-10-04 20:00] VITALS: BP 107/69
[2019-10-04] MEDS: clozapine 25mg tablet PO SCH (20:31)
[2019-10-04] MEDS: clozapine 100mg tablet PO SCH (20:31)
[2019-10-04] MEDS: atorvastatin 10mg tablet PO SCH (20:31)
--- NOTE | 2019-10-04 23:14 | NUR ---
NURSING PROGRESS NOTE Legal hold: LPS conserved Client on involuntary status for GD Report received from LUIS FERNANDO Peterson with use of SBAR Why are they here: Patient had been discharged previously with follow up at [facility] Team. Upon assessment by the [facility], it was determined patient was not able to obtain, food, care home, or clothing and a 5150 for GD was written. Patient returned within hours of discharge. At time of return patient denied any symptoms related to his mental illness diagnosis of Schizophrenia. He continues to present with cognitive impairment which impedes his ability to care of himself, and requires multiple supports and external structures. Assessment What has happened this shift: Pt walks the halls smiling. He is pleasant with staff and peers. He watches TV and is need interacting appropriately with peers. Pt denies SI/HI/AH/VH at this time but seems internally preoccupied at times. S/I, H/I: Denies A/VH: internal preoccupation at times Sleep: Naps on and off throughout the day ADL's: Independent Group attendance: No Were Meds taken: Yes Any med S/E: No Mental Status Exam Appearance: Same clothes as yesterday; encouraged shower Eye contact: Fair Behavior: Psychomotor agitation Speech: Normal Mood: Euthymic Affect: Flat Thought process: Linear Thought Content: circumstantial Cognition: Alert Insight: Poor Judgment: Poor Interventions PRN's used: NA Therapeutic interventions: AM assessment; prompts to shower and attend groups and get up for meals; medication administration/education/monitoring, Q 15 min safety checks. Restraints/seclusion/emergency medication: N/A Justification of Continued Inpatient Treatment: Pt is gravely disabled, he is LPS conserved, he continues to need medication adjustment and monitoring and a safe and supportive environment.
[2019-10-05 07:34] VITALS: BP 105/57
[2019-10-05] MEDS: pantoprazole 40mg Tablet.DR PO SCH (08:15)
[2019-10-05] MEDS: CLOZAPINE 25 MG oral disintegrating tablet PO SCH (08:15)
[2019-10-05] MEDS: azelastine Nasal Spray bottle NS SCH ×2 (08:15→20:35)
[2019-10-05] MEDS: atomoxetine 25mg capsule PO SCH (08:15)
[2019-10-05] MEDS: DOXYCYCLINE 100MG CAPSULE PO SCH (08:15)
[2019-10-05] MEDS: sennosides 8.6mg tablet PO SCH ×2 (08:15→20:34)
[2019-10-05] MEDS: salt irrigation nasal spray 45 ML SPRAY NS SCH ×2 (08:15→20:35)
[2019-10-05] MEDS: docusate sod 100mg capsule PO SCH ×2 (08:15→20:32)
[2019-10-05] MEDS: JUVEN Shake w/Arg/Glut/Ca2+Bmb (Juven 19.3gm) pkt 240ml PO SCH (08:18)
[2019-10-05] MEDS ORDERED: nicotine 21mg patch - 24 hr TD ONE (08:20)
--- NOTE | 2019-10-05 10:37 | NUR ---
Reassessment: Pt PO 100% regular diet w/ Greyson shakes. EBONI d/w RN regarding change to ensure high proteins per MD approval given pt has no wounds and Greyson for wound healing. [facility] 10/02. Will continue to monitor. Rec: 1. advance diet per MD to heart healthy 2. Ensure high protein instead of Greyson per MD approval given no wounds(protein drink per pt request) 3. anti-hyperlipidemic per MD approval; TG 204 4. routine bowel care 5. wt per rx Addendum: 10/05/19 at [address] Amended: Links added.
[2019-10-05] MEDS: lactose-reduced food (Ensure High Protein) 237ml bottle PO SCH ×2 (13:44→18:00)
[2019-10-05] MEDS: CLOZAPINE 100 MG TAB.RAPDIS PO SCH (15:01)
[2019-10-05] MEDS: NICOTINE POLACRILEX 2 MG LOZENGE BC PRN (15:02)
--- NOTE | 2019-10-05 16:58 | NUR ---
NURSING PROGRESS NOTE Legal hold: LPS conserved Client on involuntary status for GD Report received from LUIS FERNANDO Guerrero with use of SBAR Why are they here: Patient had been discharged previously with follow up at [facility] Team. Upon assessment by the [facility], it was determined patient was not able to obtain, food, mcc, or clothing and a 5150 for GD was written. Patient returned within hours of discharge. At time of return patient denied any symptoms related to his mental illness diagnosis of Schizophrenia. He continues to present with cognitive impairment which impedes his ability to care of himself, and requires multiple supports and external structures. Assessment What has happened this shift: Pt up and visible on the unit. Went to all meals and groups. Little to no interaction with others accept when requesting something from staff. Pt was observed responding to internal stimuli; though, was not as preoccupied as yesterday. Pt did go to groups and meals and was requesting more food claiming he was hungry. Pt denies depression and denied s.i. S/I, H/I: Denies A/VH: Yes Sleep: Naps on and off throughout the day ADL's: Independent Group attendance: Yes Were Meds taken: Yes Any med S/E: No Mental Status Exam Appearance: Same clothes as yesterday; encouraged shower Eye contact: Fair Behavior: Psychomotor agitation Speech: Normal Mood: Euthymic Affect: Flat Thought process: Linear Thought Content: RIS Cognition: Alert Insight: Poor Judgment: Poor Interventions PRN's used: NA Therapeutic interventions: AM assessment; prompts to shower and attend groups and get up for meals; medication administration/education/monitoring, Q 15 min safety checks. Restraints/seclusion/emergency medication: N/A Justification of Continued Inpatient Treatment: Pt is gravely disabled, he is on a TCON, he continues to need medication adjustment and monitoring and a safe and supportive environment.
[2019-10-05 20:00] VITALS: BP 114/69
[2019-10-05] MEDS: atorvastatin 10mg tablet PO SCH (20:32)
[2019-10-05] MEDS: clozapine 25mg tablet PO SCH (20:33)
[2019-10-05] MEDS: clozapine 100mg tablet PO SCH (20:34)
--- NOTE | 2019-10-05 23:28 | NUR ---
NURSING PROGRESS NOTE Legal hold: LPS conserved Client on involuntary status for GD Report received from LUIS FERNANDO Martinez with use of SBAR Why are they here: Patient had been discharged previously with follow up at [facility] Team. Upon assessment by the [facility], it was determined patient was not able to obtain, food, [facility], or clothing and a 5150 for GD was written. Patient returned within hours of discharge. At time of return patient denied any symptoms related to his mental illness diagnosis of Schizophrenia. He continues to present with cognitive impairment which impedes his ability to care of himself, and requires multiple supports and external structures. Assessment What has happened this shift: Pt walks the halls smiling. He is pleasant with staff and peers. He watches TV and is need interacting appropriately with peers. Pt denies SI/HI/AH/VH at this time but seems internally preoccupied at times. He is seen waving his hands in the air while he walks at times but remains pleasant and smiles. He watches TV until he is ready to go to sleep. S/I, H/I: Denies A/VH: internal preoccupation at times Sleep: Naps on and off throughout the day ADL's: Independent Group attendance: No Were Meds taken: Yes Any med S/E: No Mental Status Exam Appearance: Same clothes as yesterday; encouraged shower Eye contact: Fair Behavior: Psychomotor agitation Speech: Normal Mood: Euthymic Affect: Flat Thought process: Linear Thought Content: circumstantial Cognition: Alert Insight: Poor Judgment: Poor Interventions PRN's used: Nicotine NANCY Therapeutic interventions: AM assessment; prompts to shower and attend groups and get up for meals; medication administration/education/monitoring, Q 15 min safety checks. Restraints/seclusion/emergency medication: N/A Justification of Continued Inpatient Treatment: Pt is gravely disabled, he is LPS conserved, he continues to need medication adjustment and monitoring and a safe and supportive environment.
[2019-10-06] MEDS: nicotine 21mg patch - 24 hr TD SCH (07:19)
[2019-10-06] MEDS: salt irrigation nasal spray 45 ML SPRAY NS SCH ×2 (07:19→20:27)
[2019-10-06] MEDS: atomoxetine 25mg capsule PO SCH (07:20)
[2019-10-06] MEDS: pantoprazole 40mg Tablet.DR PO SCH (07:20)
[2019-10-06] MEDS: DOXYCYCLINE 100MG CAPSULE PO SCH (07:20)
[2019-10-06] MEDS: sennosides 8.6mg tablet PO SCH ×2 (07:20→20:19)
[2019-10-06] MEDS: azelastine Nasal Spray bottle NS SCH ×2 (07:20→20:27)
[2019-10-06] MEDS: docusate sod 100mg capsule PO SCH ×2 (07:20→20:18)
[2019-10-06] MEDS: CLOZAPINE 25 MG oral disintegrating tablet PO SCH (07:20)
[2019-10-06] MEDS: lactose-reduced food (Ensure High Protein) 237ml bottle PO SCH ×3 (08:00→18:00)
[2019-10-06 08:19] VITALS: BP 127/71
--- NOTE | 2019-10-06 16:51 | NUR ---
NURSING PROGRESS NOTE Legal hold: LPS conserved Client on involuntary status for GD Report received from LUIS FERNANDO Rg with use of SBAR Why are they here: Patient had been discharged previously with follow up at [facility] Team. Upon assessment by the [facility], it was determined patient was not able to obtain, food, skilled nursing, or clothing and a 5150 for GD was written. Patient returned within hours of discharge. At time of return patient denied any symptoms related to his mental illness diagnosis of Schizophrenia. He continues to present with cognitive impairment which impedes his ability to care of himself, and requires multiple supports and external structures. Assessment What has happened this shift: Patient is resting in bed snoring loudly at change of shift. He wakes up and eats breakfast in the group room and then goes back to bed. He takes AM meds and states that he is "really tired". He sleeps until right before lunch. After lunch, pt up and visible on the unit. Went to all meals and was seen in the group room playing [place] with peers. Little to no interaction with others accept when requesting something from staff. Pt was observed responding to some internal stimuli, snapping and talking loudly to the wall. Denied hearing voices in the morning. Pt denies depression and denied s.i. Denies thoughts of hurting others S/I, H/I: Denies A/VH: Denies but some observed. Sleep: Naps on and off throughout the day ADL's: Independent Group attendance: Yes Were Meds taken: Yes Any med S/E: No Mental Status Exam Appearance: Street clothing Eye contact: Fair Behavior: Psychomotor agitation, fatigued in the morning Speech: Normal Mood: Euthymic Affect: Flat Thought process: Linear Thought Content: responding to internal stimuli Cognition: Alert Insight: Poor Judgment: Poor Interventions PRN's used: NA Therapeutic interventions: AM assessment; prompts to shower and attend groups and get up for meals; medication administration/education/monitoring, Q 15 min safety checks. Restraints/seclusion/emergency medication: N/A Justification of Continued Inpatient Treatment: Pt is gravely disabled, he is on a TCON, he continues to need medication adjustment and monitoring and a safe and supportive environment.
[2019-10-06] MEDS ORDERED: haloperidol 5mg tablet PO PRN (17:20)
[2019-10-06 20:00] VITALS: BP 126/77
[2019-10-06] MEDS: clozapine 100mg tablet PO SCH (20:18)
[2019-10-06] MEDS: clozapine 25mg tablet PO SCH (20:19)
[2019-10-06] MEDS: atorvastatin 10mg tablet PO SCH (20:20)
--- NOTE | 2019-10-07 00:51 | NUR ---
NURSING PROGRESS NOTE Legal hold: LPS conserved Client on involuntary status for GD Report received from LUIS FERNANDO Martinez with use of SBAR Why are they here: Patient had been discharged previously with follow up at [facility] Team. Upon assessment by the [facility], it was determined patient was not able to obtain, food, mcc, or clothing and a 5150 for GD was written. Patient returned within hours of discharge. At time of return patient denied any symptoms related to his mental illness diagnosis of Schizophrenia. He continues to present with cognitive impairment which impedes his ability to care of himself, and requires multiple supports and external structures. Assessment What has happened this shift: Pt walks the halls smiling. He is pleasant with staff and peers. Pt denies SI/HI/AH/VH at this time but seems internally preoccupied at times while walking, talking about random things. "Have you ever had a subway sandwich, yea! they are pretty good!" He waves his hands around while walking and laughs. PT is medication compliant and cooperative with 1:1 assessment. S/I, H/I: Denies A/VH: internal preoccupation, talks to self Sleep: Naps on and off throughout the day ADL's: Independent Group attendance: No Were Meds taken: Yes Any med S/E: No Mental Status Exam Appearance: own clothing Eye contact: Fair Behavior: Psychomotor agitation Speech: Normal Mood: Euthymic Affect: upbeat Thought process: Linear Thought Content: circumstantial Cognition: Alert Insight: Poor Judgment: Poor Interventions PRN's used: none Therapeutic interventions: AM assessment; prompts to shower and attend groups and get up for meals; medication administration/education/monitoring, Q 15 min safety checks. Restraints/seclusion/emergency medication: N/A Justification of Continued Inpatient Treatment: Pt is gravely disabled, he is LPS conserved, he continues to need medication adjustment and monitoring and a safe and supportive environment.
[2019-10-07 07:51] LABS: BASOPHILS % (AUTO) 0.5 % (0-1); EOSINOPHILS # (AUTO) 0.2 X10'3 (0-0.9); HEMATOCRIT 42.4 % (42.0-52.0); HEMOGLOBIN 14.3 g/dl (14.0-17.9); LYMPHOCYTES # (AUTO) 2.1 X10'3 (1.1-4.8); LYMPHOCYTES % (AUTO) 26.6 % (21-51); MEAN CORPUSCULAR HEMOGLOBIN 27.8 PG (27.0-31.0); MEAN CORPUSCULAR HGB CONC 33.6 g/dL (33.0-36.5); MEAN CORPUSCULAR VOLUME 82.7 FL (78-98); MEAN PLATELET VOLUME 7.6 FL (7.4-10.4); MONOCYTES # (AUTO) 0.8 X10'3 (0-0.9); MONOCYTES % (AUTO) 10.2 % (2-12); NEUTROPHILS # (AUTO) 4.8 X10'3 (1.8-7.7); NEUTROPHILS % (AUTO) 60.7 % (42-75); PLATELET COUNT 207 X10'3 (140-440); RED BLOOD COUNT 5.13 X10'6 (4.70-6.10); RED CELL DISTRIBUTION WIDTH 13.8 % (11.5-14.5); WHITE BLOOD COUNT 7.9 X10'3 (4.5-11.0)
[2019-10-07 08:00] VITALS: BP 123/81
[2019-10-07] MEDS: salt irrigation nasal spray 45 ML SPRAY NS SCH ×2 (08:30→20:29)
[2019-10-07] MEDS: azelastine Nasal Spray bottle NS SCH ×2 (08:30→20:29)
[2019-10-07] MEDS: sennosides 8.6mg tablet PO SCH ×2 (08:31→20:26)
[2019-10-07] MEDS: docusate sod 100mg capsule PO SCH ×2 (08:31→20:27)
[2019-10-07] MEDS: atomoxetine 25mg capsule PO SCH (08:31)
[2019-10-07] MEDS: DOXYCYCLINE 100MG CAPSULE PO SCH (08:31)
[2019-10-07] MEDS: pantoprazole 40mg Tablet.DR PO SCH (08:31)
[2019-10-07] MEDS: CLOZAPINE 25 MG oral disintegrating tablet PO SCH (08:31)
[2019-10-07] MEDS: nicotine 21mg patch - 24 hr TD SCH (08:32)
[2019-10-07] MEDS: lactose-reduced food (Ensure High Protein) 237ml bottle PO SCH ×3 (08:38→18:06)
[2019-10-07] MEDS: CLOZAPINE 100 MG TAB.RAPDIS PO SCH (14:12)
[2019-10-07] MEDS: NICOTINE POLACRILEX 2 MG LOZENGE BC PRN (14:17)
--- NOTE | 2019-10-07 17:03 | NUR ---
NURSING PROGRESS NOTE Legal hold: LPS conserved Client on involuntary status for GD Report received from LUIS FERNANDO Rg with use of SBAR Why are they here: Patient had been discharged previously with follow up at [facility] Team. Upon assessment by the [facility] [place] [place], it was determined patient was not able to obtain, food, usp, or clothing and a 5150 for GD was written. Patient returned within hours of discharge. At time of return patient denied any symptoms related to his mental illness diagnosis of Schizophrenia. He continues to present with cognitive impairment which impedes his ability to care of himself, and requires multiple supports and external structures. Assessment What has happened this shift: Patient is resting in bed peacefully at change of shift. He takes AM meds and states that he is hearing voices at times that are "mean and say mean things" to him. Went to all meals and was seen in the group room and in the jama socializing with peers. Pt denies depression and denied s.i. Reports some fleeting thoughts of hurting others but states he does not want to act on this, they are just intrusive thoughts because of the voices. S/I, H/I: Denies SI, reports some thoughts of wanting to hurt others. A/VH: Denies but some observed. Sleep: Naps on and off throughout the day ADL's: Independent Group attendance: yes Were Meds taken: Yes Any med S/E: No Mental Status Exam Appearance: Street clothing Eye contact: Fair Behavior: Psychomotor agitation, fatigued in the morning Speech: Normal Mood: Euthymic Affect: Flat Thought process: Linear Thought Content: responding to internal stimuli Cognition: Alert Insight: Poor Judgment: Poor Interventions PRN's used: NA Therapeutic interventions: AM assessment; prompts to shower and attend groups and get up for meals; medication administration/education/monitoring, Q 15 min safety checks. Restraints/seclusion/emergency medication: N/A Justification of Continued Inpatient Treatment: Pt is gravely disabled, he is on a TCON, he continues to need medication adjustment and monitoring and a safe and supportive environment.
[2019-10-07 20:00] VITALS: BP 120/72
[2019-10-07] MEDS: atorvastatin 10mg tablet PO SCH (20:27)
[2019-10-07] MEDS: clozapine 100mg tablet PO SCH (20:28)
[2019-10-07] MEDS: clozapine 25mg tablet PO SCH (20:28)
[2019-10-07] MEDS: propranolol 10mg tablet PO SCH (20:33)
--- NOTE | 2019-10-08 00:09 | NUR ---
NURSING PROGRESS NOTE Legal hold: LPS conserved Client on involuntary status for GD Report received from LUIS FERNANDO Martinez with use of SBAR Why are they here: Patient had been discharged previously with follow up at [facility] Team. [place] [facility] [place] determined patient was not able to obtain, food, group home, or clothing and a 5150 for GD was written. Patient returned within hours of discharge. At time of return patient denied any symptoms related to his mental illness diagnosis of Schizophrenia. He continues to present with cognitive impairment which impedes his ability to care of himself, and requires multiple supports and external structures. Assessment What has happened this shift: Pt states he had a good day and denies all symptoms, but is observed to be responding to IS via talking to himself and hand gestures. Pt stated he is feeling "good about maybe going to an IMD. That seems like a good plan, better than last time. I can stay good there, and you know, get the help and connections to do stuff on my own, too." Pt was pleasant with staff and peers, often smiling while engaged in conversation. Pt took HS medications except for the propranolol stating it gives him a cough. This RN educated to the importance of this med for his tachycardia, but pt only responded by saying "yeah, yeah" and then laughing in a happy manner. Pt finished watching movie, paced the halls a few more times, then retired to his room to sleep. S/I, H/I: Denies Both A/VH: Denies VH, +AH - states AH comes and goes but none currently; observed to be responding to IS intermittently while pacing Sleep: See Sleep Assessment ADL's: Independent Group attendance: N/A Were Meds taken: Yes, Refused Propranolol Any med S/E: None reported, Slight Slur Mental Status Exam Appearance: Appropriate: Personal clothing, nonskid socks, neat and clean. Eye contact: Good (Direct) Behavior: Pacing halls, watching [employer] movie, attending HS snack, engaging with some peers Speech: Slight Slur Mood: "I'm good" Affect: Bright Thought process: Linear Thought Content: Hopeful regarding IMD placement Cognition: A/Ox4 Insight: Poor Judgment: Poor Interventions PRN's used: None Therapeutic interventions: PM assessment; reinforcing reality; medication administration/education/monitoring, Q 15 min safety checks. Restraints/seclusion/emergency medication: N/A Justification of Continued Inpatient Treatment: Pt is gravely disabled, he is LPS conserved, he continues to need medication adjustment and monitoring and a safe and supportive environment. Awaiting placement to D.
[2019-10-08 07:41] VITALS: BP 122/69
[2019-10-08] MEDS: sennosides 8.6mg tablet PO SCH ×2 (07:56→20:21)
[2019-10-08] MEDS: docusate sod 100mg capsule PO SCH ×2 (07:56→20:21)
[2019-10-08] MEDS: pantoprazole 40mg Tablet.DR PO SCH (07:56)
[2019-10-08] MEDS: nicotine 21mg patch - 24 hr TD SCH (07:56)
[2019-10-08] MEDS: propranolol 10mg tablet PO SCH ×3 (07:57→20:22)
[2019-10-08] MEDS: atomoxetine 25mg capsule PO SCH (07:57)
[2019-10-08] MEDS: DOXYCYCLINE 100MG CAPSULE PO SCH (07:57)
[2019-10-08] MEDS: lactose-reduced food (Ensure High Protein) 237ml bottle PO SCH ×3 (07:57→17:32)
[2019-10-08] MEDS: CLOZAPINE 25 MG oral disintegrating tablet PO SCH (07:57)
[2019-10-08] MEDS: salt irrigation nasal spray 45 ML SPRAY NS SCH ×2 (08:31→20:25)
[2019-10-08] MEDS: azelastine Nasal Spray bottle NS SCH ×2 (08:31→20:26)
[2019-10-08] MEDS: CLOZAPINE 100 MG TAB.RAPDIS PO SCH (15:26)
--- NOTE | 2019-10-08 15:27 | NUR ---
NURSING PROGRESS NOTE Legal hold: LPS conserved Client on involuntary status for GD Report received from LUIS FERNANDO Pedraza with use of SBAR Why are they here: Patient had been discharged previously with follow up at [facility] Team. Upon assessment by the [facility] [place], it was determined patient was not able to obtain, food, fdc, or clothing and a 5150 for GD was written. Patient returned within hours of discharge. At time of return patient denied any symptoms related to his mental illness diagnosis of Schizophrenia. He continues to present with cognitive impairment which impedes his ability to care of himself, and requires multiple supports and external structures. Assessment What has happened this shift: Up to meals and went to [email or web address] group with his peers. Looking forward to Definition 6 and watching it with others here. Napped in morning, took meds. Pleasant, polite, and cooperative. No suicidal thoughts, only mild AH at times, but "not bothering me." S/I, H/I: Denies A/VH: As above Sleep: Napped ADL's: Independent Group attendance: yes Were Meds taken: Yes Any med S/E: No Mental Status Exam Appearance: Street clothing Eye contact: Fair Behavior: cooperative Speech: Normal Mood: "doing ok" Affect: happy Thought process: Linear Thought Content: wanting to watch Superbowl Cognition: Alert Insight: Poor Judgment: Poor Interventions PRN's used: NA Therapeutic interventions: AM assessment; prompts to shower and attend groups and get up for meals; medication administration/education/monitoring, Q 15 min safety checks. Restraints/seclusion/emergency medication: N/A Justification of Continued Inpatient Treatment: Pt is gravely disabled, he is on a TCON, he continues to need medication adjustment and monitoring and a safe and supportive environment.
[2019-10-08] MEDS: LORazepam 1 MG tablet PO PRN (17:00)
[2019-10-08 20:00] VITALS: BP 124/78
[2019-10-08] MEDS: atorvastatin 10mg tablet PO SCH (20:21)
[2019-10-08] MEDS: clozapine 25mg tablet PO SCH (20:23)
[2019-10-08] MEDS: clozapine 100mg tablet PO SCH (20:25)
--- NOTE | 2019-10-09 00:21 | NUR ---
NURSING PROGRESS NOTE Legal hold: LPS conserved Client on involuntary status for GD Report received from LUIS FERNANDO Martinez with use of SBAR Why are they here: Patient had been discharged previously with follow up at [facility] Team. Upon assessment by the [facility] [place], it was determined patient was not able to obtain, food, intermediate, or clothing and a 5150 for GD was written. Patient returned within hours of discharge. At time of return patient denied any symptoms related to his mental illness diagnosis of Schizophrenia. He continues to present with cognitive impairment which impedes his ability to care of himself, and requires multiple supports and external structures. Assessment What has happened this shift: Up pacing the jama and watching Super Bowl with his peers. Pt took his meds and was Pleasant, polite, and cooperative. No suicidal thoughts, only mild AH at times, but "not bothering me." S/I, H/I: Denies A/VH: As above Sleep: Napped ADL's: Independent Group attendance: yes Were Meds taken: Yes Any med S/E: No Mental Status Exam Appearance: Street clothing Eye contact: Fair Behavior: cooperative Speech: Normal Mood: "doing ok" Affect: happy Thought process: Linear Thought Content: wanting to watch Superbowl Cognition: Alert Insight: Poor Judgment: Poor Interventions PRN's used: NA Therapeutic interventions: AM assessment; prompts to shower and attend groups and get up for meals; medication administration/education/monitoring, Q 15 min safety checks. Restraints/seclusion/emergency medication: N/A Justification of Continued Inpatient Treatment: Pt is gravely disabled, he is on a TCON, he continues to need medication adjustment and monitoring and a safe and supportive environment.
[2019-10-09 07:55] VITALS: BP 123/69
[2019-10-09] MEDS: docusate sod 100mg capsule PO SCH ×2 (08:08→20:37)
[2019-10-09] MEDS: nicotine 21mg patch - 24 hr TD SCH (08:08)
[2019-10-09] MEDS: CLOZAPINE 25 MG oral disintegrating tablet PO SCH (08:08)
[2019-10-09] MEDS: propranolol 10mg tablet PO SCH ×4 (08:09→20:37)
[2019-10-09] MEDS: DOXYCYCLINE 100MG CAPSULE PO SCH (08:09)
[2019-10-09] MEDS: pantoprazole 40mg Tablet.DR PO SCH (08:09)
[2019-10-09] MEDS: sennosides 8.6mg tablet PO SCH ×2 (08:09→20:38)
[2019-10-09] MEDS: atomoxetine 25mg capsule PO SCH (08:10)
[2019-10-09] MEDS: salt irrigation nasal spray 45 ML SPRAY NS SCH ×2 (08:11→20:36)
[2019-10-09] MEDS: azelastine Nasal Spray bottle NS SCH ×2 (08:11→20:36)
[2019-10-09] MEDS: lactose-reduced food (Ensure High Protein) 237ml bottle PO SCH ×3 (08:58→18:01)
--- NOTE | 2019-10-09 10:37 | NUR ---
PLACEMENT Spoke to Gina [facility], regarding placement. Zachariah's packet is currently at [facility] and [facility]. MATTHIEU Strange
[2019-10-09] MEDS: CLOZAPINE 100 MG TAB.RAPDIS PO SCH (14:14)
--- NOTE | 2019-10-09 16:43 | NUR ---
NURSING PROGRESS NOTE Legal hold: LPS conserved Client on involuntary status for GD Report received from LUIS FERNANDO Miranda with use of SBAR Why are they here: Patient had been discharged previously with follow up at [facility] Team. Upon assessment by the [facility] [place], it was determined patient was not able to obtain, food, prison, or clothing and a 5150 for GD was written. Patient returned within hours of discharge. At time of return patient denied any symptoms related to his mental illness diagnosis of Schizophrenia. He continues to present with cognitive impairment which impedes his ability to care of himself, and requires multiple supports and external structures. Assessment What has happened this shift: Received patient awake sitting on bed. Patient pleasant upon approach and he attended all meals and groups. He did get up and leave senior living through the afternoon group and went to his room to take a nap. Patient appears less internally occupied today and he says the voices are not as intense, he was not observed talking to himself while pacing in the hallway today. patient had appropriate affect and responded appropriately when staff initiated interaction. Patient also went on off you didnt patio walk. patient denies depression and denies suicidal thoughts today. S/I, H/I: Denies A/VH: Yes Sleep: Naps on and off throughout the day ADL's: Independent Group attendance: partial Were Meds taken: Yes - pt did refuse inderal at 1300, it makes me short of breath Any med S/E: No Mental Status Exam Appearance: Same clothes as yesterday; encouraged shower, had fresh haircut Eye contact: Fair Behavior: Psychomotor agitation Speech: Normal Mood: Euthymic Affect: Flat Thought process: Linear Thought Content: RIS Cognition: Alert Insight: Poor Judgment: Poor Interventions PRN's used: NA Therapeutic interventions: AM assessment; prompts to shower and attend groups and get up for meals; medication administration/education/monitoring, Q 15 min safety checks. Restraints/seclusion/emergency medication: N/A Justification of Continued Inpatient Treatment: Pt is gravely disabled, he is on a TCON, he continues to need medication adjustment and monitoring and a safe and supportive environment.
[2019-10-09 20:00] VITALS: BP 121/79
[2019-10-09] MEDS: atorvastatin 10mg tablet PO SCH (20:37)
[2019-10-09] MEDS: clozapine 25mg tablet PO SCH (20:37)
[2019-10-09] MEDS: clozapine 100mg tablet PO SCH (20:38)
--- NOTE | 2019-10-09 21:52 | NUR ---
NURSING PROGRESS NOTE Legal hold: LPS conserved Client on involuntary status for GD Report received from LUIS FERNANDO Martinez with use of SBAR Why are they here: Patient had been discharged previously with follow up at [facility] Team. Upon assessment by the [facility] [place], it was determined patient was not able to obtain, food, retirement, or clothing and a 5150 for GD was written. Patient returned within hours of discharge. At time of return patient denied any symptoms related to his mental illness diagnosis of Schizophrenia. He continues to present with cognitive impairment which impedes his ability to care of himself, and requires multiple supports and external structures. Assessment What has happened this shift: Received patient awake sitting in a chair in the jama Patient appears less internally occupied today and he says the voices are not as intense, he was not observed talking to himself while pacing in the hallway today. patient had appropriate affect and responded appropriately when staff initiated interaction. Pt requested a shower this shift. S/I, H/I: Denies A/VH: Yes Sleep: Naps on and off throughout the day ADL's: Independent Group attendance: partial Were Meds taken: Yes - pt did refuse inderal at 1300, it makes me short of breath Any med S/E: No Mental Status Exam Appearance: Same clothes as yesterday; encouraged shower, had fresh haircut Eye contact: Fair Behavior: Psychomotor agitation Speech: Normal Mood: Euthymic Affect: Flat Thought process: Linear Thought Content: RIS Cognition: Alert Insight: Poor Judgment: Poor Interventions PRN's used: NA Therapeutic interventions: AM assessment; prompts to shower and attend groups and get up for meals; medication administration/education/monitoring, Q 15 min safety checks. Restraints/seclusion/emergency medication: N/A Justification of Continued Inpatient Treatment: Pt is gravely disabled, he is on a TCON, he continues to need medication adjustment and monitoring and a safe and supportive environment.
[2019-10-10] MEDS: atomoxetine 25mg capsule PO SCH (07:49)
[2019-10-10] MEDS: pantoprazole 40mg Tablet.DR PO SCH (07:50)
[2019-10-10] MEDS: docusate sod 100mg capsule PO SCH ×2 (07:50→20:20)
[2019-10-10] MEDS: CLOZAPINE 25 MG oral disintegrating tablet PO SCH (07:50)
[2019-10-10] MEDS: DOXYCYCLINE 100MG CAPSULE PO SCH (07:50)
[2019-10-10] MEDS: propranolol 10mg tablet PO SCH ×3 (07:50→20:20)
[2019-10-10] MEDS: salt irrigation nasal spray 45 ML SPRAY NS SCH ×2 (07:51→20:19)
[2019-10-10] MEDS: sennosides 8.6mg tablet PO SCH ×2 (07:51→20:20)
[2019-10-10] MEDS: nicotine 21mg patch - 24 hr TD SCH (07:51)
[2019-10-10] MEDS: azelastine Nasal Spray bottle NS SCH ×2 (07:51→20:19)
[2019-10-10 08:12] VITALS: BP 116/70
[2019-10-10] MEDS: lactose-reduced food (Ensure High Protein) 237ml bottle PO SCH ×3 (08:18→18:09)
[2019-10-10] MEDS: CLOZAPINE 100 MG TAB.RAPDIS PO SCH (15:30)
--- NOTE | 2019-10-10 17:51 | NUR ---
NURSING PROGRESS NOTE: Zachariah Legal hold: LPS conserved Client on involuntary status for GD Report received from LUIS FERNANDO Guerrero with use of SBAR Why are they here: Patient had been discharged previously with follow up at [facility] Team. Upon assessment by the [facility], it was determined patient was not able to obtain, food, group home, or clothing and a 5150 for GD was written. Patient returned within hours of discharge. At time of return patient denied any symptoms related to his mental illness diagnosis of Schizophrenia. He continues to present with cognitive impairment which impedes his ability to care of himself, and requires multiple supports and external structures. Assessment What has happened this shift: Patient has been pleasant and smiling today. Attends all meals and groups, naps after meals. Patient has not been as internally preoccupied as before. Patient has been watching t.v. with peers in group room. Patient is medication compliant and states that he is feeling better on Clozaril with less inrusive thoughts. S/I, H/I: Denies A/VH: Yes Sleep: 8.25 hrs NOC, napped after meals. ADL's: Independent Group attendance: Yes. Were Meds taken: Yes Any med S/E: No Mental Status Exam Appearance: Freshly showered, neat and clean in personal attire. Eye contact: Fair Behavior: Calm and cooperative. Speech: Clear, normal rate and rhythm. Mood: Euthymic Affect: Brightening. Thought process: Linear. Circumstantial. Thought Content: Food, watching t.v., socializing with peers. Cognition: Alert & oriented x 4. Insight: Fair. Judgment: Fair. Interventions PRN's used: None. Therapeutic interventions: AM assessment; prompts to shower and attend groups and get up for meals; medication administration/education/monitoring, Q 15 min safety checks. Restraints/seclusion/emergency medication: N/A Justification of Continued Inpatient Treatment: Pt is gravely disabled, he is on LPS conservatorship awaiting placement by his conservator. Addendum: 02/04/20 at 1812 by Raeann Hernandez RN Pt. now responding to internal stimuli, talking to himself, pacing hallways.
[2019-10-10] MEDS: atorvastatin 10mg tablet PO SCH (20:20)
[2019-10-10] MEDS: clozapine 25mg tablet PO SCH (20:21)
[2019-10-10] MEDS: clozapine 100mg tablet PO SCH (20:22)
[2019-10-10 20:52] VITALS: BP 112/64
--- NOTE | 2019-10-10 20:56 | NUR ---
NURSING PROGRESS NOTE: Zachariah Legal hold: LPS conserved Client on involuntary status for GD Report received from LUIS FERNANDO Guerrero with use of SBAR Why are they here: Patient had been discharged previously with follow up at [facility] Team. Upon assessment by the [facility], it was determined patient was not able to obtain, food, alf, or clothing and a 5150 for GD was written. Patient returned within hours of discharge. At time of return patient denied any symptoms related to his mental illness diagnosis of Schizophrenia. He continues to present with cognitive impairment which impedes his ability to care of himself, and requires multiple supports and external structures. Assessment What has happened this shift: Patient pacing the jama talking to him self and laughing. Patient has been pleasant and smiling today. Patient has appears as internally preoccupied as before. Patient has been watching t.v. with peers in group room. Patient is medication compliant and states that he is feeling better on Clozaril with less inrusive thoughts. S/I, H/I: Denies A/VH: Yes Sleep: 8.25 hrs NOC, napped after meals. ADL's: Independent Group attendance: Yes. Were Meds taken: Yes Any med S/E: No Mental Status Exam Appearance: Freshly showered, neat and clean in personal attire. Eye contact: Fair Behavior: Calm and cooperative. Speech: Clear, normal rate and rhythm. Mood: Euthymic Affect: Brightening. Thought process: Linear. Circumstantial. Thought Content: Food, watching t.v., socializing with peers. Cognition: Alert & oriented x 4. Insight: Fair. Judgment: Fair. Interventions PRN's used: None. Therapeutic interventions: AM assessment; prompts to shower and attend groups and get up for meals; medication administration/education/monitoring, Q 15 min safety checks. Restraints/seclusion/emergency medication: N/A Justification of Continued Inpatient Treatment: Pt is gravely disabled, he is on LPS conservatorship awaiting placement by his conservator.
[2019-10-11 07:37] VITALS: BP 100/60
[2019-10-11] MEDS: lactose-reduced food (Ensure High Protein) 237ml bottle PO SCH ×3 (08:00→18:00)
[2019-10-11] MEDS: nicotine 21mg patch - 24 hr TD SCH (08:02)
[2019-10-11] MEDS: atomoxetine 25mg capsule PO SCH (08:02)
[2019-10-11] MEDS: DOXYCYCLINE 100MG CAPSULE PO SCH (08:02)
[2019-10-11] MEDS: propranolol 10mg tablet PO SCH ×3 (08:02→20:01)
[2019-10-11] MEDS: sennosides 8.6mg tablet PO SCH ×2 (08:02→19:54)
[2019-10-11] MEDS: pantoprazole 40mg Tablet.DR PO SCH (08:02)
[2019-10-11] MEDS: CLOZAPINE 25 MG oral disintegrating tablet PO SCH (08:02)
[2019-10-11] MEDS: docusate sod 100mg capsule PO SCH ×2 (08:02→19:54)
[2019-10-11] MEDS: salt irrigation nasal spray 45 ML SPRAY NS SCH ×2 (08:03→19:57)
[2019-10-11] MEDS: azelastine Nasal Spray bottle NS SCH ×2 (08:03→19:57)
--- NOTE | 2019-10-11 10:37 | NUR ---
Reassessment: Pt continues with 75-100% PO intake of meals. Pt now appropriately receiving Ensure High Protein rather than Greyson shakes and pt with 100% PO intake of ONS meeting nutrient needs. Per diet order pt now to receive double protein TID. LBM 2/2. Pt receiving routine bowel care. No further nutrition intervention warranted at this time. Will continue to follow. Rec: 1. advance diet per MD to heart healthy 2. Ensure high protein TID (protein drink per pt request) 3. Double eggs q breakfast, double meat BIDLD 4. anti-hyperlipidemic per MD approval; TG 204 5. routine bowel care; monitor need for additional 6. wt per rx Addendum: 10/11/19 at [address] Amended: Links added.
--- NOTE | 2019-10-11 14:55 | NUR ---
PLACEMENT Faxed last two weeks of MD notes, RN notes, and med list to [facility] office for placement purposes. MATTHIEU Strange
[2019-10-11] MEDS: CLOZAPINE 100 MG TAB.RAPDIS PO SCH (15:35)
--- NOTE | 2019-10-11 17:36 | NUR ---
NURSING PROGRESS NOTE: Zachariah Legal hold: LPS conserved Client on involuntary status for GD Report received from LUIS FERNANDO Guerrero with use of SBAR Why are they here: Patient had been discharged previously with follow up at [facility] Team. Upon assessment by the [facility] [place], it was determined patient was not able to obtain, food, chcf, or clothing and a 5150 for GD was written. Patient returned within hours of discharge. At time of return patient denied any symptoms related to his mental illness diagnosis of Schizophrenia. He continues to present with cognitive impairment which impedes his ability to care of himself, and requires multiple supports and external structures. Assessment What has happened this shift: Patient has been up and social on the unit, attending groups, played [employer]. Patient makes superficial conversation and takes medications without incident. Patient is pleasant and highly liked by staff and peers. S/I, H/I: Denies A/VH: Yes Sleep: 6 hrs NOC, napped after meals. ADL's: Independent Group attendance: Yes. Were Meds taken: Yes Any med S/E: No Mental Status Exam Appearance: Clean and neat in personal attire. Eye contact: Fair Behavior: Calm and cooperative. Speech: Clear, normal rate and rhythm. Mood: Euthymic Affect: Pleasant Thought process: Linear. Circumstantial. Thought Content: Food, watching t.v., socializing with peers. Cognition: Alert & oriented x 4. Insight: Fair. Judgment: Fair. Interventions PRN's used: None. Therapeutic interventions: AM assessment; prompts to shower and attend groups and get up for meals; medication administration/education/monitoring, Q 15 min safety checks. Restraints/seclusion/emergency medication: N/A Justification of Continued Inpatient Treatment: Pt is gravely disabled, he is on LPS conservatorship awaiting placement by his conservator.
[2019-10-11 20:00] VITALS: BP 105/58
[2019-10-11] MEDS: clozapine 25mg tablet PO SCH (20:00)
[2019-10-11] MEDS: atorvastatin 10mg tablet PO SCH (20:00)
[2019-10-11] MEDS: clozapine 100mg tablet PO SCH (20:01)
[2019-10-11] MEDS: benztropine 1mg tablet PO PRN (22:53)
[2019-10-11] MEDS: LORazepam 1 MG tablet PO PRN (22:55)
--- NOTE | 2019-10-11 23:33 | NUR ---
NURSING PROGRESS NOTE: Zachariah Legal hold: LPS conserved Client on involuntary status for GD Report received from LUIS FERNANDO Peraza with use of SBAR Why are they here: Patient had been discharged previously with follow up at [facility] Team. Upon assessment by the [facility], it was determined patient was not able to obtain, food, half-way, or clothing and a 5150 for GD was written. Patient returned within hours of discharge. At time of return patient denied any symptoms related to his mental illness diagnosis of Schizophrenia. He continues to present with cognitive impairment which impedes his ability to care of himself, and requires multiple supports and external structures. Assessment What has happened this shift: Pt was in the hallway at change of shift. He is smiling and pleasant. Talks about topic in group today about letting things go and he states he is working on letting things go from his past. Pt socialized with peers and watched tv before going to bed. He woke up a couple hours after going to bed and complained of feeling like he stopped breathing and was gasping for air. Pts vitals were taking and his HR was a little high. We raised the head of his bed and gave prn cogentin and ativan. Pt is sleeping rr are even and unlabored. S/I, H/I: Denies A/VH: Yes Sleep: see sleep hours ADL's: Independent Group attendance: no evening groups Were Meds taken: Yes Any med S/E: No Mental Status Exam Appearance: Clean and neat in personal attire. Eye contact: Fair Behavior: Calm and cooperative. Speech: Clear, normal rate and rhythm. Mood: Euthymic Affect: Pleasant Thought process: Linear. Circumstantial. Thought Content: Food, watching t.v., socializing with peers. Cognition: Alert & oriented x 4. Insight: Fair. Judgment: Fair. Interventions PRN's used: None. Therapeutic interventions: AM assessment; prompts to shower and attend groups and get up for meals; medication administration/education/monitoring, Q 15 min safety checks. Restraints/seclusion/emergency medication: N/A Justification of Continued Inpatient Treatment: Pt is gravely disabled, he is on LPS conservatorship awaiting placement by his conservator.
[2019-10-12 07:24] VITALS: BP 94/53
[2019-10-12] MEDS: salt irrigation nasal spray 45 ML SPRAY NS SCH ×2 (07:54→20:13)
[2019-10-12] MEDS: docusate sod 100mg capsule PO SCH ×2 (07:54→20:13)
[2019-10-12] MEDS: atomoxetine 25mg capsule PO SCH (07:54)
[2019-10-12] MEDS: sennosides 8.6mg tablet PO SCH ×2 (07:54→20:13)
[2019-10-12] MEDS: azelastine Nasal Spray bottle NS SCH ×2 (07:54→20:00)
[2019-10-12] MEDS: nicotine 21mg patch - 24 hr TD SCH (07:54)
[2019-10-12] MEDS: CLOZAPINE 25 MG oral disintegrating tablet PO SCH (07:55)
[2019-10-12] MEDS: propranolol 10mg tablet PO SCH ×3 (07:55→20:14)
[2019-10-12] MEDS: pantoprazole 40mg Tablet.DR PO SCH (07:55)
[2019-10-12] MEDS: DOXYCYCLINE 100MG CAPSULE PO SCH (07:55)
[2019-10-12] MEDS: lactose-reduced food (Ensure High Protein) 237ml bottle PO SCH ×3 (08:00→18:00)
[2019-10-12] MEDS: CLOZAPINE 100 MG TAB.RAPDIS PO SCH (17:10)
--- NOTE | 2019-10-12 17:55 | NUR ---
NURSING PROGRESS NOTE: Zachariah Legal hold: LPS conserved Client on involuntary status for GD Report received from LUIS FERNANDO Guerrero with use of SBAR Why are they here: Patient had been discharged previously with follow up at [facility] Team. Upon assessment by the [facility], it was determined patient was not able to obtain, food, intermediate, or clothing and a 5150 for GD was written. Patient returned within hours of discharge. At time of return patient denied any symptoms related to his mental illness diagnosis of Schizophrenia. He continues to present with cognitive impairment which impedes his ability to care of himself, and requires multiple supports and external structures. Assessment What has happened this shift: Patient was resting in be, snoring loudly at change of shift. He ate meals in the group room and took his medications as ordered without incident. He states that he feels really tired. He goes back to bed after breakfast and is observed snoring until right before lunch time. He is pleasant and social when he is awake and attends groups. He denies SI/HI, A/VH. He is seen conversing with peers and watching TV in the group room. S/I, H/I: Denies A/VH: Denies, does not appear to be responding to internal stimuli. Sleep: slept most of the morning, up after lunch. ADL's: Independent Group attendance: Yes. Were Meds taken: Yes Any med S/E: No Mental Status Exam Appearance: in green scrub pants and riojas shirt, and maroon baseball cap. Eye contact: Fair Behavior: Calm and cooperative. Speech: Clear, normal rate and rhythm. Mood: Euthymic Affect: Pleasant Thought process: Linear. Circumstantial. Thought Content: "I feel tired", Food, watching t.v., socializing with peers. Cognition: Alert & oriented x 4. Insight: Fair. Judgment: Fair. Interventions PRN's used: None. Therapeutic interventions: AM assessment; prompts to shower and attend groups and get up for meals; medication administration/education/monitoring, Q 15 min safety checks. Restraints/seclusion/emergency medication: N/A Justification of Continued Inpatient Treatment: Pt is gravely disabled, he is on LPS conservatorship awaiting placement by his conservator.
[2019-10-12 20:00] VITALS: BP 107/66
[2019-10-12] MEDS: clozapine 100mg tablet PO SCH (20:13)
[2019-10-12] MEDS: clozapine 25mg tablet PO SCH (20:14)
[2019-10-12] MEDS: atorvastatin 10mg tablet PO SCH (20:14)
[2019-10-12] MEDS: hydrOXYzine 25 MG tablet PO PRN (20:14)
--- NOTE | 2019-10-13 00:07 | NUR ---
Nursing Progress Note: Legal hold: LPS Client on involuntary status for GD Report received from nurse with use of SBAR: LUIS FERNANDO Fxo Why are they here: Patient had been discharged previously with follow up at [facility] Team. Upon assessment by the [facility], it was determined patient was not able to obtain, food, detention, or clothing and a 5150 for GD was written. Patient returned within hours of discharge. At time of return patient denied any symptoms related to his mental illness diagnosis of Schizophrenia. He continues to present with cognitive impairment which impedes his ability to care of himself, and requires multiple supports and external structures. Assessment What has happened this shift: Pt. up watching TV in the Recreation Room at the beginning of the shift, he greets this screenplay writer with a smile and asks, "How are you?" Pt. continues to interact appropriately with others throughout the shift, however minimally. Pt. later attends HS snack in the Group Room, and requests to watch a movie here. He continues to c/o intermittent episodes of SOB, however V/S are WNL and lung sounds are clear. Tammi CHERY is aware and EKG has been ordered for tomorrow morning, pt. notified and reports contentment. 1:1 completed, and pt. presents as cooperative, guarded, and slightly restless (pulse rate slightly elevated). He continues to deny any mental health s/s, and no delusional statements made this shift. PRN Atrax administered with effectiveness, will continue to monitor. S/I, H/I: Denies A/VH: Denies, does not appear to be internally preoccupied this shift Sleep: Pt. retreats to bed following movie, and reports he has been sleeping well ADL's: Requires some prompting and direction from staff at times Group attendance: Pt reports he attends groups Were meds taken: Yes Any med S/E: Pt. continues to c/o intermittent episodes of SOB, EKG ordered for tomorrow AM Mental Status Exam Appearance: Present as neat, and appropriately dressed in hospital attire Eye contact: Good Behavior: Cooperative, restless, and guarded. Speech: Soft and animated, child-like. Responds only minimally to questions. Mood: Guarded, with restlessness at times Affect: Blunted Thought process: Poverty of thought Thought Content: WNL, however difficult to assess r/t pt. remains guarded Cognition: A&O X4 Insight: Poor Judgment: Poor to fair Interventions PRN's used: Atrax Therapeutic interventions: Ensured contract for safety, maintained a safe and therapeutic environment, provided clear and simple instructions, monitored behaviors and need for intervention, encouraged independent performance of ADLs, monitored V/S and physical assessment, and maintained Q 15 min safety checks. Restraints/seclusion/emergency medication: N/A Justification of Continued Inpatient Treatment: Pt. continues to require a safe and supportive and is unable to provide for his basic needs independently r/t his mental illness. He is LPS conserved and awaiting placement.
[2019-10-13 07:32] VITALS: BP 120/60
[2019-10-13] MEDS: DOXYCYCLINE 100MG CAPSULE PO SCH (07:49)
[2019-10-13] MEDS: pantoprazole 40mg Tablet.DR PO SCH (07:49)
[2019-10-13] MEDS: atomoxetine 25mg capsule PO SCH (07:50)
[2019-10-13] MEDS: propranolol 10mg tablet PO SCH ×3 (07:50→20:43)
[2019-10-13] MEDS: sennosides 8.6mg tablet PO SCH ×2 (07:50→20:43)
[2019-10-13] MEDS: salt irrigation nasal spray 45 ML SPRAY NS SCH ×2 (07:50→20:42)
[2019-10-13] MEDS: azelastine Nasal Spray bottle NS SCH ×2 (07:50→20:42)
[2019-10-13] MEDS: docusate sod 100mg capsule PO SCH ×2 (07:50→20:42)
[2019-10-13] MEDS: nicotine 21mg patch - 24 hr TD SCH (07:51)
[2019-10-13] MEDS ORDERED: tuberculin, purif. prot. deriv. 5 units/0.1ml ID ONE (08:55)
--- NOTE | 2019-10-13 08:56 | NUR ---
JUDI Lacey office called to state that [facility] would like updated notes on [facility]. Chief Medical Director had already faxed notes on Wed. Adelia reported they would also like a TB test. Requested LUIS FERNANDO Fox, order a PPD. MATTHIEU Strange
--- NOTE | 2019-10-13 13:10 | NUR ---
Faxed chest x-ray dated 08/10/19 to [facility] office for placement purposes (TB test). MATTHIEU Strange
[2019-10-13] MEDS: lactose-reduced food (Ensure High Protein) 237ml bottle PO SCH ×2 (13:51→18:21)
[2019-10-13] MEDS: CLOZAPINE 100 MG TAB.RAPDIS PO SCH (15:00)
[2019-10-13] MEDS: LORazepam 1 MG tablet PO PRN (16:50)
--- NOTE | 2019-10-13 18:04 | NUR ---
Nursing Progress Note: CHALO Legal hold: LPS Client on involuntary status for GD Report received from nurse with use of SBAR: LUIS FERNANDO Bangura Why are they here: Patient had been discharged previously with follow up at [facility]. [place] [facility] determined patient was not able to obtain, food, custodial, or clothing and a 5150 for GD was written. Patient returned within hours of discharge. At time of return patient denied any symptoms related to his mental illness diagnosis of Schizophrenia. He continues to present with cognitive impairment which impedes his ability to care of himself, and requires multiple supports and external structures. Assessment What has happened this shift: Pt. sleeping and snoring loudly at change of shift. Once awake is amendable to do 1:1 assessment at bedside. He reports that he slept well last night and denies any nightmares. He also denies any SE from medications, none were objectively observed. He denies any AH or VH although he is found to have active internal stimuli in the later part of the afternoon AEB talking to himself and motioning to the wall. Pt appears guarded today and tends to keep to himself. He was evaluated by PT and released as his injury is chronic and needs to be treated on an outpatient basis. Pt has full ROM of shoulder and denies any pain or SOB today. Pt also had EKG today. Pt also had PPD placed today. Pt attended groups and denied any concerns. Late afternoon pt was found pacing the halls, slapping the jacobson, clapping his hands loudly, and talking to himself with pressured speech, PRN Ativan was administered with good effect. S/I, H/I: Denies A/VH: Denies Sleep: 7.75hrs NOC ADL's: Independent Group attendance: Yes Were meds taken: Yes Any med S/E: Denies, none observed Mental Status Exam Appearance: Present as neat, and appropriately dressed in hospital attire Eye contact: Direct Behavior: Cooperative, guarded, isolative Speech: Soft, poverty Mood: Guarded, "I'm ok" Affect: Bright at times Thought process: Poverty of thought Thought Content: question/assessment related Cognition: A&O X4 Insight: Poor Judgment: Poor to fair Interventions PRN's used: Ativan X1 Therapeutic interventions: Ensured contract for safety, maintained a safe and therapeutic environment, provided clear and simple instructions, monitored behaviors and need for intervention, encouraged independent performance of ADLs, monitored V/S and physical assessment, and maintained Q 15 min safety checks. Restraints/seclusion/emergency medication: N/A Justification of Continued Inpatient Treatment: Pt. continues to require a safe and supportive and is unable to provide for his basic needs independently r/t his mental illness. He is LPS conserved and awaiting placement.
[2019-10-13 20:06] VITALS: BP 107/57
[2019-10-13 20:40] VITALS: BP 110/60
[2019-10-13] MEDS: atorvastatin 10mg tablet PO SCH (20:42)
[2019-10-13] MEDS: clozapine 25mg tablet PO SCH (20:43)
[2019-10-13] MEDS: clozapine 100mg tablet PO SCH (20:44)
--- NOTE | 2019-10-14 00:22 | NUR ---
Nursing Progress Note: Legal hold: LPS Client on involuntary status for GD Report received from nurse with use of SBAR: LUIS FERNANDO Fox Why are they here: Patient had been discharged previously with follow up at [facility] Team. Upon assessment by the [facility], it was determined patient was not able to obtain, food, prison, or clothing and a 5150 for GD was written. Patient returned within hours of discharge. At time of return patient denied any symptoms related to his mental illness diagnosis of Schizophrenia. He continues to present with cognitive impairment which impedes his ability to care of himself, and requires multiple supports and external structures. Assessment What has happened this shift: Pt. up watching TV in the Group Room at the beginning of the shift, he presents as calm and cooperative, however remains guarded. He again interacts appropriately, however minimally with others throughout the shift. 1:1 completed, pt. denies any depression or anxiety, however endorses some A/V/THOMAS at times. Pt. states, "Sometimes I see things that I saw before scary in movies. I saw a face that came out of the wall before. I saw the big balloon from the movie 'It." When questioned by this editorial writer regarding any A/THOMAS, pt. reports that he does hear voices sometimes, however then states, "I shouldn't talk about it." No delusional statements made this shift. Pt. continues to report AM fatigue, and reports that he slept through AM group today. Will endorse to AM shift, and continue to monitor. No c/o episodic SOB this shift, and V/S WNL. S/I, H/I: Denies A/VH: Pt. endorses some A/V/THOMAS at times Sleep: Pt. reports he has been sleeping well ADL's: Requires some prompting and direction from staff at times Group attendance: Pt reports he attends groups, however admits that he slept through AM group Were meds taken: Yes Any med S/E: Pt. continues to report fatigue in the AM, dose of Clozaril being adjusted, will continue to monitor. Mental Status Exam Appearance: Present as neat, and appropriately dressed in hospital attire Eye contact: Good Behavior: Cooperative and guarded. Speech: Soft and animated, child-like. Responds only minimally to questions. Mood: Pleasant Affect: Blunted with animation Thought process: Poverty of thought Thought Content: Pt. endorses A/V/THOMAS at times Cognition: A&O X4 Insight: Poor Judgment: Poor to fair Interventions PRN's used: None Therapeutic interventions: Ensured contract for safety, maintained a safe and therapeutic environment, provided clear and simple instructions, monitored behaviors and need for intervention, encouraged independent performance of ADLs, provided active listening and positive encouragement, and maintained Q 15 min safety checks. Restraints/seclusion/emergency medication: N/A Justification of Continued Inpatient Treatment: Pt. continues to require a safe and supportive and is unable to provide for his basic needs independently r/t his mental illness. He is LPS conserved and awaiting placement.
[2019-10-14 06:52] LABS: BASOPHILS # (AUTO) 0.1 X10'3 (0-0.2); BASOPHILS % (AUTO) 0.9 % (0-1); EOSINOPHILS # (AUTO) 0.1 X10'3 (0-0.9); EOSINOPHILS % (AUTO) 1.9 % (0-6); HEMATOCRIT 41.9 % (42.0-52.0); HEMOGLOBIN 14.3 g/dl (14.0-17.9); LYMPHOCYTES # (AUTO) 2.2 X10'3 (1.1-4.8); LYMPHOCYTES % (AUTO) 30.5 % (21-51); MEAN CORPUSCULAR HEMOGLOBIN 28.3 PG (27.0-31.0); MEAN CORPUSCULAR HGB CONC 34.1 g/dL (33.0-36.5); MEAN CORPUSCULAR VOLUME 82.9 FL (78-98); MONOCYTES # (AUTO) 0.8 X10'3 (0-0.9); MONOCYTES % (AUTO) 11.3 % (2-12); NEUTROPHILS # (AUTO) 4.1 X10'3 (1.8-7.7); NEUTROPHILS % (AUTO) 55.4 % (42-75); PLATELET COUNT 204 X10'3 (140-440); RED BLOOD COUNT 5.05 X10'6 (4.70-6.10); RED CELL DISTRIBUTION WIDTH 14.6 % (11.5-14.5); WHITE BLOOD COUNT 7.3 X10'3 (4.5-11.0)
[2019-10-14 07:00] VITALS: BP 130/73
[2019-10-14] MEDS: DOXYCYCLINE 100MG CAPSULE PO SCH (07:47)
[2019-10-14] MEDS: docusate sod 100mg capsule PO SCH ×2 (07:47→20:27)
[2019-10-14] MEDS: pantoprazole 40mg Tablet.DR PO SCH (07:47)
[2019-10-14] MEDS: propranolol 10mg tablet PO SCH ×3 (07:47→20:26)
[2019-10-14] MEDS: sennosides 8.6mg tablet PO SCH ×2 (07:47→20:27)
[2019-10-14] MEDS: atomoxetine 25mg capsule PO SCH (07:48)
[2019-10-14] MEDS: azelastine Nasal Spray bottle NS SCH ×2 (07:48→20:28)
[2019-10-14] MEDS: nicotine 21mg patch - 24 hr TD SCH (07:48)
[2019-10-14] MEDS: salt irrigation nasal spray 45 ML SPRAY NS SCH ×2 (07:49→20:28)
[2019-10-14] MEDS: lactose-reduced food (Ensure High Protein) 237ml bottle PO SCH ×3 (08:20→18:00)
[2019-10-14] MEDS: CLOZAPINE 100 MG TAB.RAPDIS PO SCH (15:30)
[2019-10-14] MEDS: LORazepam 1 MG tablet PO PRN (15:50)
--- NOTE | 2019-10-14 16:02 | NUR ---
Nursing Progress Note: CHALO Legal hold: LPS Client on involuntary status for GD Report received from nurse with use of SBAR: LUIS FERNANDO Bangura Why are they here: Patient had been discharged previously with follow up [place] [facility]. [place] [facility] was not able to obtain, food, longterm, or clothing and a 5150 for GD was written. Patient returned within hours of discharge. At time of return patient denied any symptoms related to his mental illness diagnosis of Schizophrenia. He continues to present with cognitive impairment which impedes his ability to care of himself, and requires multiple supports and external structures. Assessment What has happened this shift: Pt. resting in bed at the beginning of the shift, he presents as calm, cooperative and mildly sedated. 1:1 completed at bedside, pt. denies any depression or anxiety, endorses occasional A/V/THOMAS at times. Pt does not wish to talk in depth about his hallucinations. No delusional statements made this shift. Pt does not c/o SOB this shift, none observed by this automobile and property underwriter, and VSS. Pt appears to have worsening AH aorund 2-3 PM QD, MIRI Cadena was advised, and ordered Clozaril 1500 dose to be changed to 1400 to address these concerns. PRN Ativan was also dispensed to assist with increasing bothersome AH. S/I, H/I: Denies A/VH: Occasional A/V/THOMAS Sleep: 9.25hrs NOC ADL's: Requires some prompting and direction from staff at times Group attendance: Yes Were meds taken: Yes Any med S/E: None reported or observed Mental Status Exam Appearance: Present as neat, and appropriately dressed in personal attire Eye contact: Direct Behavior: Cooperative and guarded. Speech: Soft and animated. Mood: Euthymic Affect: Mostly blunted with some brightening Thought process: Poverty of thought Thought Content: Pt. endorses A/V/THOMAS at times Cognition: A&O X4 Insight: Poor Judgment: Poor Interventions PRN's used: Ativan X1 Therapeutic interventions: Ensured contract for safety, maintained a safe and therapeutic environment, provided clear and simple instructions, monitored behaviors and need for intervention, encouraged independent performance of ADLs, provided active listening and positive encouragement, and maintained Q 15 min safety checks. Restraints/seclusion/emergency medication: N/A Justification of Continued Inpatient Treatment: Pt. continues to require a safe and supportive and is unable to provide for his basic needs independently r/t his mental illness. He is LPS conserved and awaiting placement.
[2019-10-14 19:52] VITALS: BP 128/70
[2019-10-14] MEDS: clozapine 100mg tablet PO SCH (20:26)
[2019-10-14] MEDS: clozapine 25mg tablet PO SCH (20:26)
[2019-10-14] MEDS: atorvastatin 10mg tablet PO SCH (20:33)
--- NOTE | 2019-10-14 22:53 | NUR ---
NURSING PROGRESS NOTE Legal hold: LPS conserved Client on involuntary status for GD Report received from LUIS FERNANDO Fox with use of SBAR Why are they here: Patient had been discharged previously with follow up at [facility] Team. Upon assessment by the [facility], it was determined patient was not able to obtain, food, correction, or clothing and a 5150 for GD was written. Patient returned within hours of discharge. At time of return patient denied any symptoms related to his mental illness diagnosis of Schizophrenia. He continues to present with cognitive impairment which impedes his ability to care of himself, and requires multiple supports and external structures. Assessment What has happened this shift: Pt walks the halls smiling. He is pleasant with staff and peers. He watches TV and is need interacting appropriately with peers. Pt denies SI/HI/AH/VH at this time. He watches TV until he is ready to go to sleep. S/I, H/I: Denies A/VH: internal preoccupation at times Sleep:see sleep assessment notation ADL's: Independent Group attendance: No Were Meds taken: Yes Any med S/E: No Mental Status Exam Appearance: Same clothes as yesterday; encouraged shower Eye contact: Fair Behavior: Psychomotor agitation Speech: Normal Mood: Euthymic Affect: Flat Thought process: Linear Thought Content: circumstantial Cognition: Alert Insight: Poor Judgment: Poor Interventions PRN's used: na Therapeutic interventions: AM assessment; prompts to shower and attend groups and get up for meals; medication administration/education/monitoring, Q 15 min safety checks. Restraints/seclusion/emergency medication: N/A Justification of Continued Inpatient Treatment: Pt is gravely disabled, he is LPS conserved, he continues to need medication adjustment and monitoring and a safe and supportive environment.
[2019-10-15 07:28] VITALS: BP 123/67
[2019-10-15] MEDS: pantoprazole 40mg Tablet.DR PO SCH (07:38)
[2019-10-15] MEDS: DOXYCYCLINE 100MG CAPSULE PO SCH (07:38)
[2019-10-15] MEDS: nicotine 21mg patch - 24 hr TD SCH (07:38)
[2019-10-15] MEDS: sennosides 8.6mg tablet PO SCH ×2 (07:39→20:10)
[2019-10-15] MEDS: salt irrigation nasal spray 45 ML SPRAY NS SCH ×2 (07:39→20:09)
[2019-10-15] MEDS: propranolol 10mg tablet PO SCH ×3 (07:39→20:10)
[2019-10-15] MEDS: docusate sod 100mg capsule PO SCH ×2 (07:39→20:10)
[2019-10-15] MEDS: azelastine Nasal Spray bottle NS SCH ×2 (07:39→20:09)
[2019-10-15] MEDS: lactose-reduced food (Ensure High Protein) 237ml bottle PO SCH ×3 (08:40→17:52)
--- NOTE | 2019-10-15 12:15 | NUR ---
Nursing Progress Note: CHALO Legal hold: LPS Client on involuntary status for GD Report received from nurse with use of SBAR: LUIS FERNANDO Rg Why are they here: Patient had been discharged previously with follow up at [facility] Team. Upon assessment by the [facility], it was determined patient was not able to obtain, food, custodial, or clothing and a 5150 for GD was written. Patient returned within hours of discharge. At time of return patient denied any symptoms related to his mental illness diagnosis of Schizophrenia. He continues to present with cognitive impairment which impedes his ability to care of himself, and requires multiple supports and external structures. Assessment What has happened this shift: Pt. resting in bed peacefully and audibly snoring at the beginning of the shift. He takes his medications without incident and is seen in the community room for meals. 1:1 completed at bedside and pt. denies depression and anxiety currently, also denies A/VH at this time. Pt states that he is tired and would like to rest. He smiles and uses his manners in interactions, often saying please and thank you. No delusional statements made this shift. Will continue to monitor this shift. S/I, H/I: Denies A/VH: Denies, does not appear to be responding to internal stimuli. Sleep: naps throughout the morning. ADL's: independent with some prompting and direction from staff at times Group attendance: N/A Were meds taken: Yes Any med S/E: None reported or observed Mental Status Exam Appearance: appropriately dressed in personal attire Eye contact: Direct Behavior: Cooperative and somewhat guarded. Speech: Soft and animated. Mood: Euthymic Affect: blunted with some brightening Thought process: Poverty of thought Thought Content: "i am tired", " I am bored". Cognition: A&O X4 Insight: Poor Judgment: Poor Interventions PRN's used: Ativan X1 Therapeutic interventions: Ensured contract for safety, maintained a safe and therapeutic environment, provided clear and simple instructions, monitored behaviors and need for intervention, encouraged independent performance of ADLs, provided active listening and positive encouragement, and maintained Q 15 min safety checks. Restraints/seclusion/emergency medication: N/A Justification of Continued Inpatient Treatment: Pt. continues to require a safe and supportive and is unable to provide for his basic needs independently r/t his mental illness. He is LPS conserved and awaiting placement.
[2019-10-15] MEDS ORDERED: CLOZAPINE 25 MG oral disintegrating tablet PO SCH (14:00)
[2019-10-15] MEDS: LORazepam 1 MG tablet PO PRN (14:26)
[2019-10-15] MEDS: clozapine 100mg tablet PO SCH ×2 (14:27→20:09)
[2019-10-15 19:49] VITALS: BP 138/83
[2019-10-15] MEDS: clozapine 25mg tablet PO SCH (20:10)
[2019-10-15] MEDS: atorvastatin 10mg tablet PO SCH (20:10)
--- NOTE | 2019-10-15 23:56 | NUR ---
NURSING PROGRESS NOTE Legal hold: LPS conserved Client on involuntary status for GD Report received from LUIS FERNANDO Fox with use of SBAR Why are they here: Patient had been discharged previously with follow up at [facility] Team. Upon assessment by the [facility], it was determined patient was not able to obtain, food, intermediate, or clothing and a 5150 for GD was written. Patient returned within hours of discharge. At time of return patient denied any symptoms related to his mental illness diagnosis of Schizophrenia. He continues to present with cognitive impairment which impedes his ability to care of himself, and requires multiple supports and external structures. Assessment What has happened this shift: Pt was in rec room watching tv at change of shift. pt was seen socializing with other pt's as they watched tv, pt interacts appropriately with staff and other pt's. pt was in a pleasant mood with a lof of smiling this evening. Pt seems to be comfortable here and stated that "other places have too many rules." pt attended snack with other pt's and then watched more tv before going to bed. S/I, H/I: Denies A/VH: denies, not observed Sleep:see sleep assessment ADL's: Independent Group attendance: No Were Meds taken: Yes Any med S/E: No Mental Status Exam Appearance: dirty clothes Eye contact: Fair Behavior: calm Speech: Normal Mood: Euthymic Affect: Flat Thought process: Linear Thought Content: circumstantial Cognition: Alert Insight: Poor Judgment: Poor Interventions PRN's used: none Therapeutic interventions: AM assessment; prompts to shower and attend groups and get up for meals; medication administration/education/monitoring, Q 15 min safety checks. Restraints/seclusion/emergency medication: N/A Justification of Continued Inpatient Treatment: Pt is gravely disabled, he is LPS conserved, he continues to need medication adjustment and monitoring and a safe and supportive environment.
[2019-10-16 07:26] VITALS: BP 109/62
[2019-10-16] MEDS: nicotine 21mg patch - 24 hr TD SCH (08:27)
[2019-10-16] MEDS: propranolol 10mg tablet PO SCH ×3 (08:27→20:35)
[2019-10-16] MEDS: DOXYCYCLINE 100MG CAPSULE PO SCH (08:27)
[2019-10-16] MEDS: docusate sod 100mg capsule PO SCH ×2 (08:27→20:38)
[2019-10-16] MEDS: pantoprazole 40mg Tablet.DR PO SCH (08:27)
[2019-10-16] MEDS: sennosides 8.6mg tablet PO SCH ×2 (08:27→20:35)
[2019-10-16] MEDS: atomoxetine 25mg capsule PO SCH (08:27)
[2019-10-16] MEDS: salt irrigation nasal spray 45 ML SPRAY NS SCH ×2 (08:28→20:33)
[2019-10-16] MEDS: azelastine Nasal Spray bottle NS SCH ×2 (08:28→20:33)
[2019-10-16] MEDS: lactose-reduced food (Ensure High Protein) 237ml bottle PO SCH ×3 (08:30→18:07)
[2019-10-16] MEDS: clozapine 100mg tablet PO SCH ×2 (09:18→20:35)
--- NOTE | 2019-10-16 11:09 | NUR ---
Patient is resting in bed peacefully at change of shift. He is snoring loudly. he gets up for breakfast in the community room and takes his medications as ordered without incident. He is pleasant and cooperative with care. He currently denies SI, HI, A/VH. He states that he will let me know if any symptoms occur. He reports that he is "really tired". Pt states he would just like to rest now.
--- NOTE | 2019-10-16 16:56 | NUR ---
Nursing Progress Note Legal hold: LPS Client on involuntary status for GD Report received from nurse Brittnee Gonzalez RN with use of SBAR: LUIS FERNANDO Rg Why are they here: Patient had been discharged previously with follow up at [facility] Team. Upon assessment by the [facility] [place], it was determined patient was not able to obtain, food, mcfp, or clothing and a 5150 for GD was written. Patient returned within hours of discharge. At time of return patient denied any symptoms related to his mental illness diagnosis of Schizophrenia. He continues to present with cognitive impairment which impedes his ability to care of himself, and requires multiple supports and external structures. Assessment What has happened this shift: Pt in dayroom having lunch w/the rest of the patients. Pt is seen with a utensil in each hand and putting one bite in his mouth after the other. Pt later went to [employer] and participated in making a card for staff then went around asking other patient's to sign the card. He was up smiling and conversing appropriately w/peers. S/I, H/I: Denies A/VH: Denies, does not appear to be RIS. Sleep: Up this shift ADL's: independent; occasionally needs prompts Group attendance: Yes Were Meds taken: Yes Any med S/E: None reported or observed Mental Status Exam Appearance: Clean street clothes Eye contact: Direct Behavior: Calm; engaging with peers Speech: Speaks softly but audible Mood: Euthymic Affect: Blunted Thought process: Poverty of thought Thought Content: Involved helping staff today Cognition: A&O X4 Insight: Poor Judgment: Poor Interventions PRN's used: N/A Therapeutic interventions: therapeutic communication and active listening, medication administration/education/monitoring, encouraged group participation, Q 15 min safety checks. Restraints/seclusion/emergency medication: N/A Justification of Continued Inpatient Treatment: Pt. continues to require a safe and supportive and is unable to provide for his basic needs independently r/t his mental illness. He is LPS conserved and awaiting placement.
[2019-10-16 20:00] VITALS: BP 146/90
[2019-10-16] MEDS: atorvastatin 10mg tablet PO SCH (20:34)
[2019-10-16] MEDS: clozapine 25mg tablet PO SCH (20:35)
--- NOTE | 2019-10-17 00:20 | NUR ---
NURSING PROGRESS NOTE Legal hold: LPS conserved Client on involuntary status for GD Report received from LUIS FERNANDO Martinez with use of SBAR Why are they here: Patient had been discharged previously with follow up at [facility] Team. Upon assessment by the [facility] [place], it was determined patient was not able to obtain, food, fci, or clothing and a 5150 for GD was written. Patient returned within hours of discharge. At time of return patient denied any symptoms related to his mental illness diagnosis of Schizophrenia. He continues to present with cognitive impairment which impedes his ability to care of himself, and requires multiple supports and external structures. Assessment What has happened this shift: The patient was seen pacing the halls at shift change. He continues to be relatively happy, and can be seen smiling most times. When he paces, he can be heard talking to people that are not there. When not pacing, the patient can usually be seen watching tv in the community room. He reports that he's just bored here, so he has to walk. "Besides, I've gained weight." The patient is comfortable around people and acts appropriate. He took HS meds and went to bed. S/I, H/I: Denies A/VH: Observed RIS when pacing. Sleep:See sleep assessment ADL's: Independent Group attendance: No night groups Were Meds taken: Yes Any med S/E: None reported or observed. Mental Status Exam Appearance: Patient appears clean wearing short pants and t-shirt Eye contact: Good Behavior: Cooperative, pacing RIS. Speech: Normal Mood: Euthymic Affect: Happy Thought process: Linear Thought Content: circumstantial Cognition: Alert Insight: Poor Judgment: Poor Interventions PRN's used: none Therapeutic interventions: AM assessment; prompts to shower and attend groups and get up for meals; medication administration/education/monitoring, Q 15 min safety checks. Restraints/seclusion/emergency medication: N/A Justification of Continued Inpatient Treatment: Pt is gravely disabled, he is LPS conserved, he continues to need medication adjustment and monitoring and a safe and supportive environment.
[2019-10-17 07:29] VITALS: BP 100/62
[2019-10-17] MEDS: pantoprazole 40mg Tablet.DR PO SCH (07:51)
[2019-10-17] MEDS: azelastine Nasal Spray bottle NS SCH ×2 (07:52→20:20)
[2019-10-17] MEDS: propranolol 10mg tablet PO SCH ×3 (07:52→20:22)
[2019-10-17] MEDS: salt irrigation nasal spray 45 ML SPRAY NS SCH ×2 (07:52→20:20)
[2019-10-17] MEDS: docusate sod 100mg capsule PO SCH ×2 (07:52→20:23)
[2019-10-17] MEDS: DOXYCYCLINE 100MG CAPSULE PO SCH (07:52)
[2019-10-17] MEDS: atomoxetine 25mg capsule PO SCH (07:52)
[2019-10-17] MEDS: clozapine 100mg tablet PO SCH ×2 (07:52→20:22)
[2019-10-17] MEDS: sennosides 8.6mg tablet PO SCH ×2 (07:52→20:23)
[2019-10-17] MEDS: nicotine 21mg patch - 24 hr TD SCH (07:55)
[2019-10-17] MEDS: lactose-reduced food (Ensure High Protein) 237ml bottle PO SCH ×3 (08:59→18:00)
--- NOTE | 2019-10-17 12:13 | NUR ---
Reassessment: Pt continues with 75-100% PO intake of meals receiving double protein TID and 100% of Ensure High Protein meeting nutrient needs. LBM 10/15. No further nutrition intervention warranted at this time. Will continue to follow. Rec: 1. advance diet per MD to heart healthy 2. Ensure high protein TID (protein drink per pt request) 3. Double eggs q breakfast, double meat BIDLD 4. anti-hyperlipidemic per MD approval; TG 204 5. routine bowel care; monitor need for additional 6. wt per rx Addendum: 10/17/19 at [address] Amended: Links added.
--- NOTE | 2019-10-17 16:15 | NUR ---
Nursing Progress Note Legal hold: LPS Client on involuntary status for GD Report received from RN with use of SBAR Why are they here: Patient had been discharged previously with follow up at [facility] Team. Upon assessment by the [facility], it was determined patient was not able to obtain, food, correction, or clothing and a 5150 for GD was written. Patient returned within hours of discharge. At time of return patient denied any symptoms related to his mental illness diagnosis of Schizophrenia. He continues to present with cognitive impairment which impedes his ability to care of himself, and requires multiple supports and external structures. Assessment Received Naiche in his bed sleeping w/o distress at beginning of shift. Woke him and he took AM meds w/o issue. Pt up to community room where he ate breakfast and all other meals with others and interacted appropriately. Pt calm and cooperative and overall euthymic. Isolated a bit and napped today as well as attending group. S/I, H/I: Denies A/VH: Denies. Pt seen talking and gesturing to self in hallway Sleep: Napped in AM ADL's: Independent with prompting Group attendance: Yes Were Meds taken: Yes Any med S/E: None reported or observed Mental Status Exam Appearance: Clean street clothes Eye contact: Direct Behavior: Calm; engaging with peers Speech: Speaks softly but audible Mood: Euthymic Affect: Blunted Thought process: Poverty of thought Thought Content: Mostly r/t food Cognition: A&O X4 Insight: Poor Judgment: Poor Interventions PRN's used: None Therapeutic interventions: therapeutic communication and active listening, medication administration/education/monitoring, encouraged group participation, Q 15 min safety checks. Restraints/seclusion/emergency medication: N/A Justification of Continued Inpatient Treatment: Pt. continues to require a safe and supportive and is unable to provide for his basic needs independently r/t his mental illness. He is LPS conserved and awaiting placement.
[2019-10-17] MEDS: NICOTINE POLACRILEX 2 MG LOZENGE BC PRN (18:12)
[2019-10-17 20:00] VITALS: BP 100/62
[2019-10-17] MEDS: atorvastatin 10mg tablet PO SCH (20:22)
[2019-10-17] MEDS: clozapine 25mg tablet PO SCH (20:23)
[2019-10-17 22:38] VITALS: BP 100/62
--- NOTE | 2019-10-17 23:13 | NUR ---
Nursing Progress Note: Legal hold: LPS conserved Client on involuntary status for GD Report received from LUIS FERNANDO Nielson with use of SBAR Why are they here: Patient had been discharged previously with follow up at [facility] Team. Upon [place] [facility] [place] it was determined patient was not able to obtain, food, prison, or clothing and a 5150 for GD was written. Patient returned within hours of discharge. At time of return patient denied any symptoms related to his mental illness diagnosis of Schizophrenia. He continues to present with cognitive impairment which impedes his ability to care of himself, and requires multiple supports and external structures. Assessment What has happened this shift: The patient was seen in the community room watching tv. 1:1 was done at bedside. He is smiling and happy per his usual. He reports that he's thinking about his conservatorship, how long, where, and when he will finally be placed. "The place they send me should have a lot more activities, like going outside, smoking, playing games, or going to the gym." He continues to state that he's happy, not depressed, and not suicidal. He also continues to deny hallucinations although he is seen and heard responding to voices. He spent the evening watching tv until HS med pass then went to bed soon after. S/I, H/I: Denies A/VH: Observed RIS. Sleep:See sleep assessment ADL's: Independent Group attendance: No night groups Were Meds taken: Yes Any med S/E: None reported or observed. Mental Status Exam Appearance: Clean, hair combed, wears same clothes as yesterday. Eye contact: Good Behavior: Cooperative, laughing, joking. Speech: Normal Mood: Euthymic Affect: bright Thought process: Linear Thought Content: circumstantial Cognition: Alert Insight: Poor Judgment: Poor Interventions PRN's used: none Therapeutic interventions: AM assessment; prompts to shower and attend groups and get up for meals; medication administration/education/monitoring, Q 15 min safety checks. Restraints/seclusion/emergency medication: N/A Justification of Continued Inpatient Treatment: Pt is gravely disabled, he is LPS conserved, he continues to need medication adjustment and monitoring and a safe and supportive environment.
[2019-10-18] MEDS: pantoprazole 40mg Tablet.DR PO SCH (08:26)
--- NOTE | 2019-10-18 08:34 | NUR ---
PLACEMENT UPDATE Called [facility] office for update on placement. [facility] is still reviewing packet. [facility] does not have any beds, however, will contact [facility] office once they have beds. MATTHIEU Strange
[2019-10-18] MEDS: DOXYCYCLINE 100MG CAPSULE PO SCH (08:40)
[2019-10-18] MEDS: propranolol 10mg tablet PO SCH ×3 (08:41→20:26)
[2019-10-18] MEDS: sennosides 8.6mg tablet PO SCH ×2 (08:41→20:26)
[2019-10-18] MEDS: nicotine 21mg patch - 24 hr TD SCH (08:41)
[2019-10-18] MEDS: atomoxetine 25mg capsule PO SCH (08:41)
[2019-10-18] MEDS: azelastine Nasal Spray bottle NS SCH ×2 (08:42→20:26)
[2019-10-18] MEDS: salt irrigation nasal spray 45 ML SPRAY NS SCH ×2 (08:42→20:25)
[2019-10-18] MEDS: docusate sod 100mg capsule PO SCH ×2 (08:44→20:26)
[2019-10-18] MEDS: lactose-reduced food (Ensure High Protein) 237ml bottle PO SCH ×3 (08:44→18:02)
[2019-10-18] MEDS: clozapine 100mg tablet PO SCH ×2 (08:44→20:26)
[2019-10-18 08:54] VITALS: BP 118/64
--- NOTE | 2019-10-18 15:06 | NUR ---
PLACEMENT [facility] office requested updated notes on Naiche to send to [facility]. Faxed updated notes (10/07/19-today). MATTHIEU Strange
--- NOTE | 2019-10-18 16:14 | NUR ---
Nursing Progress Note Legal hold: LPS Client on involuntary status for GD Report received from KERMIT Guerrero with use of SBAR Why are they here: Patient had been discharged previously with follow up at [facility] Team. Upon assessment by the [facility], it was determined patient was not able to obtain, food, longterm, or clothing and a 5150 for GD was written. Patient returned within hours of discharge. At time of return patient denied any symptoms related to his mental illness diagnosis of Schizophrenia. He continues to present with cognitive impairment which impedes his ability to care of himself, and requires multiple supports and external structures. Assessment What has happened this shift: Pt in bed sound asleep snoring loudly at start of shift. Pt eats his mieals w/peers in the community room. He is compliant with medications. He napped on and off throughout the day. He got up for both outside group and bingo participating in each activity. S/I, H/I: Denies A/VH: Denies. Pt is seen RIS in halls Sleep: Napped ADL's: Independent with prompting Group attendance: Yes Were Meds taken: Yes Any med S/E: None reported or observed Mental Status Exam Appearance: Clean street clothes Eye contact: Direct Behavior: Calm, quiet, cooperative Speech: WNL's Mood: Euthymic Affect: Blunted Thought process: Poverty of thought Thought Content: Winning at Bingo Cognition: A&O X4 Insight: Poor Judgment: Poor Interventions PRN's used: None Therapeutic interventions: therapeutic communication and active listening, medication administration/education/monitoring, encouraged group participation, Q 15 min safety checks. Restraints/seclusion/emergency medication: N/A Justification of Continued Inpatient Treatment: Pt. continues to require a safe and supportive and is unable to provide for his basic needs independently r/t his mental illness. He is LPS conserved and awaiting placement.
[2019-10-18 20:00] VITALS: BP 122/77
[2019-10-18] MEDS: clozapine 25mg tablet PO SCH (20:26)
[2019-10-18] MEDS: atorvastatin 10mg tablet PO SCH (20:29)
--- NOTE | 2019-10-18 22:32 | NUR ---
Nursing Progress Note: Legal hold: LPS Client on involuntary status for GD Report received from nurse with use of SBAR: LUIS FERNANDO Peraza Why are they here: Patient had been discharged previously with follow up at [facility] Team. Upon assessment by the [facility] [place], it was determined patient was not able to obtain, food, halfway, or clothing and a 5150 for GD was written. Patient returned within hours of discharge. At time of return patient denied any symptoms related to his mental illness diagnosis of Schizophrenia. He continues to present with cognitive impairment which impedes his ability to care of himself, and requires multiple supports and external structures. Assessment What has happened this shift: Pt. up sitting in the hallway at the beginning of the shift, he smiles and animatedly greets this narrative writer. Pt. attends snack, and afterwards sits up in the Recreation Room watching TV and interacting minimally with others. 1:1 completed, pt. continues to any depression or anxiety, states in an animated way, "I had a good day!" He denies any A/V/THOMAS this shift, and does not appear to be responding to internal stimuli. However, pt. does admit, "I hear things sometimes, it relates to movies I've seen." No delusional statements made this shift. When questioned by this narrative writer regarding possible placement updates, pt. reports that he believes he may be discharged to [place]. He asks this narrative writer what she knows about this city, and he appears genuinely excited about the possibility of his placement here. Pt. up in the Recreation Room charging his ankle monitor at , will continue to monitor. S/I, H/I: Denies A/VH: Pt. denies any A/V/THOMAS this shift, and does not appear to be responding to internal stimuli Sleep: Pt. reports he has been sleeping well ADL's: Requires some prompting and direction from staff at times Group attendance: Pt reports he attended groups today and enjoyed them Were meds taken: Yes Any med S/E: None Mental Status Exam Appearance: Present as neat, and appropriately dressed in hospital attire Eye contact: Good Behavior: Cooperative and remains slightly guarded. Speech: Soft and animated, child-like. Responds only minimally to questions. Mood: Pleasant Affect: Animated Thought process: Poverty of thought Thought Content: Some preoccupation with desire to discharge Cognition: A&O X4 Insight: Poor Judgment: Poor to fair Interventions PRN's used: None Therapeutic interventions: Ensured contract for safety, maintained a safe and therapeutic environment, provided clear and simple instructions, monitored behaviors and need for intervention, encouraged independent performance of ADLs, questioned pt. regarding placement information and provided active listening, and maintained Q 15 min safety checks. Restraints/seclusion/emergency medication: N/A Justification of Continued Inpatient Treatment: Pt. continues to require a safe and supportive environment, per Dr. Treviño he is psychiatrically stable and will discharge as soon as housing is available. He is LPS conserved and awaiting placement.
[2019-10-19 08:00] VITALS: BP 105/60
[2019-10-19] MEDS: sennosides 8.6mg tablet PO SCH ×2 (08:12→20:08)
[2019-10-19] MEDS: atomoxetine 25mg capsule PO SCH (08:12)
[2019-10-19] MEDS: pantoprazole 40mg Tablet.DR PO SCH (08:12)
[2019-10-19] MEDS: docusate sod 100mg capsule PO SCH ×2 (08:12→20:08)
[2019-10-19] MEDS: propranolol 10mg tablet PO SCH ×3 (08:12→20:09)
[2019-10-19] MEDS: DOXYCYCLINE 100MG CAPSULE PO SCH (08:12)
[2019-10-19] MEDS: clozapine 100mg tablet PO SCH ×2 (08:13→20:09)
[2019-10-19] MEDS: lactose-reduced food (Ensure High Protein) 237ml bottle PO SCH ×3 (08:14→18:06)
[2019-10-19] MEDS: salt irrigation nasal spray 45 ML SPRAY NS SCH ×2 (08:15→20:08)
[2019-10-19] MEDS: azelastine Nasal Spray bottle NS SCH ×2 (08:15→20:08)
[2019-10-19] MEDS: nicotine 21mg patch - 24 hr TD SCH (08:19)
[2019-10-19 12:40] VITALS: BP 133/59
--- NOTE | 2019-10-19 15:17 | NUR ---
Nursing Progress Note: Legal hold: LPS Client on involuntary status for GD Report received from nurse with use of SBAR: LUIS FERNANDO Guerrero Why are they here: Patient had been discharged previously with follow up at [facility] Team. Upon assessment by the [facility] [place], it was determined patient was not able to obtain, food, halfway, or clothing and a 5150 for GD was written. Patient returned within hours of discharge. At time of return patient denied any symptoms related to his mental illness diagnosis of Schizophrenia. He continues to present with cognitive impairment which impedes his ability to care of himself, and requires multiple supports and external structures. Assessment What has happened this shift: Pt up for breakfast, cooperative with medications, attended groups. Pt denies all symptoms, paces the unit, socializes with select peers. No delusional statements made, not observed responding to internal stimuli this shift. Atomoxetine decreased from 50 mg to 25 mg daily, nicotine patch decreased from 21 mg to 14 mg daily. S/I, H/I: Pt denies A/VH: Pt denies Sleep: Pt slept 5.75 hours per noc shift report. ADL's: Independent Group attendance: Yes Were meds taken: Yes Any med S/E: None noted or reported Mental Status Exam Appearance: Neat, heavy-set, dressed in shorts and a t-shirt Eye contact: Good Behavior: Cooperative Speech: Clear, audible, minimal; poverty of speech. Mood: "good" Affect: Animated Thought process: Linear, poverty of thought Thought Content: Still wishes to receive his nasal sprays. Cognition: A/O X4 Insight: Poor Judgment: Poor to fair Interventions PRN's used: None Therapeutic interventions: Ensured contract for safety, maintained a safe and therapeutic environment, provided clear and simple instructions, monitored behaviors and need for intervention, encouraged independent performance of ADLs, questioned pt. regarding placement information and provided active listening, and maintained Q 15 min safety checks. Restraints/seclusion/emergency medication: N/A Justification of Continued Inpatient Treatment: Pt. continues to require a safe and supportive environment, per Dr. Treviño he is psychiatrically stable and will discharge as soon as housing is available. He is LPS conserved and awaiting placement. Addendum: 10/19/19 at 1622 by Elisabet Delarosa RN ([place]) Pt's morning Clozaril dose time changed from 250 mg at 0800 to 250 mg @ 1400, cont. 525 mg Clozaril at HS. Pt spoke of being excited re: possibility of being placed somewhere in [place]. He stated that they would also help him with SSI and housing.
[2019-10-19] MEDS: hydrOXYzine 25 MG tablet PO PRN (19:40)
[2019-10-19 20:00] VITALS: BP 121/73
[2019-10-19] MEDS: LORazepam 1 MG tablet PO PRN (20:09)
[2019-10-19] MEDS: clozapine 25mg tablet PO SCH (20:09)
[2019-10-19] MEDS: atorvastatin 10mg tablet PO SCH (20:09)
--- NOTE | 2019-10-20 01:10 | NUR ---
Nursing Progress Note: Legal hold: LPS Client on involuntary status for GD Report received from nurse with use of SBAR: LUIS FERNANDO Martinez Why are they here: Patient had been discharged previously with follow up at [facility] Team. Upon assessment by the [facility], it was determined patient was not able to obtain, food, alf, or clothing and a 5150 for GD was written. Patient returned within hours of discharge. At time of return patient denied any symptoms related to his mental illness diagnosis of Schizophrenia. He continues to present with cognitive impairment which impedes his ability to care of himself, and requires multiple supports and external structures. Assessment What has happened this shift: Pt. up pacing the hallway at the beginning of the shift, pacing behavior appears to increase and he begins outwardly responding to internal stimuli. This automobile service writer approached pt. and questioned him regarding the need for a PRN anxiolytic, pt. laughed and stated, "No, can you get me some weed?" He appears to be unable to stand still or participate in conversation, and immediately begins to pace again. Pt. consented to taking PRN Atrax without much effectiveness; he continued to rapidly pace, snapping his fingers, and talking to himself in nonsensical statements. Statements include, "This thing had blonde hair......it was like battery acid." PRN Ativan administered with HS medications, and pt. was finally able to relax and sat watching TV in the Group Room. 1:1 completed, pt. continues to appear to be responding to internal stimuli at times AEB inappropriate laugher and making strange faces throughout the conversation. However, he denies any A/V/THOMAS and no delusional statements made. When questioned by this automobile service writer regarding what he is excited about this shift, he states, "Tomorrow is Valentines's Day, I think we get pizza! They are going to send me to a nice place in [place]!" Pt's heart rate was elevated throughout the shift, likely r/t his restlessness, rechecked following PRN anxiolytic administration and was WNL. S/I, H/I: Denies A/VH: Pt. denies any A/V/THOMAS, however he appears to be responding to internal stimuli throughout the shift Sleep: Pt. reports he has been sleeping well ADL's: Requires some prompting and direction from staff at times Group attendance: Pt reports he attended groups today Were meds taken: Yes Any med S/E: None Mental Status Exam Appearance: Present as neat, and appropriately dressed in hospital attire Eye contact: Fair Behavior: Cooperative, anxious, restless, and guarded Speech: Soft and animated, child-like. Responds only minimally to questions. Mood: Pleasantly distracted and restless Affect: Animated Thought process: Poverty of thought Thought Content: Possible A/V/THOMAS, pt. responding to internal stimuli throughout the shift Cognition: A&O X4 Insight: Poor Judgment: Poor to fair Interventions PRN's used: Atrax and Ativan Therapeutic interventions: Ensured contract for safety, maintained a safe and therapeutic environment, provided clear and simple instructions, monitored behaviors and need for intervention, monitored V/S, provided redirection as needed, and maintained Q 15 min safety checks. Restraints/seclusion/emergency medication: N/A Justification of Continued Inpatient Treatment: Pt. continues to require a safe and supportive environment. He is LPS conserved and awaiting placement.
[2019-10-20] MEDS: atomoxetine 25mg capsule PO SCH (07:47)
[2019-10-20] MEDS: docusate sod 100mg capsule PO SCH ×2 (07:48→20:59)
[2019-10-20] MEDS: pantoprazole 40mg Tablet.DR PO SCH (07:48)
[2019-10-20] MEDS: DOXYCYCLINE 100MG CAPSULE PO SCH (07:48)
[2019-10-20] MEDS: propranolol 10mg tablet PO SCH ×3 (07:48→20:59)
[2019-10-20] MEDS: sennosides 8.6mg tablet PO SCH ×2 (07:48→20:59)
[2019-10-20] MEDS: azelastine Nasal Spray bottle NS SCH ×2 (07:52→20:00)
[2019-10-20] MEDS: lactose-reduced food (Ensure High Protein) 237ml bottle PO SCH ×2 (07:52→13:01)
[2019-10-20] MEDS: salt irrigation nasal spray 45 ML SPRAY NS SCH ×2 (07:52→20:00)
[2019-10-20 08:00] VITALS: BP 125/71
[2019-10-20] MEDS: nicotine 14mg patch - 24hr TD SCH (08:31)
[2019-10-20] MEDS: clozapine 100mg tablet PO SCH ×2 (13:01→20:59)
[2019-10-20] MEDS: clozapine 25mg tablet PO SCH ×2 (13:01→20:59)
--- NOTE | 2019-10-20 15:27 | NUR ---
Nursing Progress Note: Legal hold: LPS Client on involuntary status for GD Report received from nurse with use of SBAR: LUIS FERNANDO Arango Why are they here: Patient had been discharged previously with follow up at [facility] Team. Upon assessment by the [facility] [place] [place], it was determined patient was not able to obtain, food, long term, or clothing and a 5150 for GD was written. Patient returned within hours of discharge. At time of return patient denied any symptoms related to his mental illness diagnosis of Schizophrenia. He continues to present with cognitive impairment which impedes his ability to care of himself, and requires multiple supports and external structures. Assessment What has happened this shift: Pt was up for breakfast and cooperative with meds. Pt returned to bed after breakfast for a short nap. Pt participated in groups and activities, he smiles brightly when engaged in conversation with staff or peers though he usually is not the one who initiates conversation. Discussed pt's progressive weight gain since admit with MIRI Tucker who ordered to D/c Ensure high protein shakes and change diet to CCD. Communicated to PCT's that pt should not be given extra meal trays and that he should be encouraged to choose healthy snacks. Pt did not appear to be responding to internal stimuli this shift. S/I, H/I: Pt denies A/VH: Pt denies Sleep: Pt slept 6 hours per noc shift report, napped after breakfast ADL's: Independent Group attendance: Yes Were meds taken: Yes Any med S/E: None noted or reported Mental Status Exam Appearance: Neat, clean, heavy-set young man, dressed in street clothes and tennis shoes Eye contact: Good Behavior: Cooperative Speech: Clear, audible, minimal; poverty of speech. Mood: "good" Affect: Animated Thought process: Linear, poverty of thought Thought Content: Focused on possibly being discharged to [place]. Cognition: A/O X4 Insight: Poor Judgment: Poor to fair Interventions PRN's used: None Therapeutic interventions: 1:1 assessment, encouragement to express thoughts and feelings, therapeutic conversation, medication administration/education/monitoring, behavior monitoring, Q 15 min safety checks. Restraints/seclusion/emergency medication: N/A Justification of Continued Inpatient Treatment: Pt. continues to require a safe and supportive environment, per Dr. Treviño he is psychiatrically stable and will discharge as soon as housing is available. He is LPS conserved and awaiting placement.
[2019-10-20 19:00] VITALS: BP 119/78
[2019-10-20] MEDS: atorvastatin 10mg tablet PO SCH (20:59)
--- NOTE | 2019-10-20 22:52 | NUR ---
Nursing Progress Note: Legal hold: LPS Client on involuntary status for GD Report received from nurse with use of SBAR: LUIS FERNANDO Martinez Why are they here: Patient had been discharged previously with follow up at [facility] Team. Upon assessment by the [facility], it was determined patient was not able to obtain, food, detention, or clothing and a 5150 for GD was written. Patient returned within hours of discharge. At time of return patient denied any symptoms related to his mental illness diagnosis of Schizophrenia. He continues to present with cognitive impairment which impedes his ability to care of himself, and requires multiple supports and external structures. Assessment What has happened this shift: Patient is socializing with other patients and watching television tonight. Patient tells this data analyst report writer that things are going well. "I'm happy with being placed." Patient smiles often and laughs at times. Patient denies H/I, S/I, or any hallucinations. This patient is aware of his recent weight gain. A nurse teaching was given on food portion control. The patient smiles and does not to be concerned by his weight. This patient is focused on discharge. He is medication compliant. S/I, H/I: Pt denies. A/VH: Pt denies. Sleep: Will tally at 0500 hours. ADL's: Independent. Group attendance: Yes Were meds taken: Patient is medication compliant. Any med S/E: None noted or reported Mental Status Exam Appearance: Patient is dressed in normal clothes, he presents as clean. Eye contact: Good. Behavior: Cooperative. Speech: Normal rate, rhythm, and tone. Mood: Good. Affect: Brightened. Thought process: Linear, poverty of thought Thought Content: Patient focusing on discharge. Cognition: A/O X4. Insight: Poor Judgment: Fair. Interventions PRN's used: None Therapeutic interventions: 1:1 assessment, encouragement to express thoughts and feelings, therapeutic conversation, medication administration/education/monitoring, behavior monitoring, Q 15 min safety checks. Restraints/seclusion/emergency medication: N/A Justification of Continued Inpatient Treatment: Pt. continues to require a safe and supportive environment, per Dr. Treviño he is psychiatrically stable and will discharge as soon as housing is available. He is LPS conserved and awaiting placement.
[2019-10-21 07:31] LABS: BASOPHILS % (AUTO) 0.7 % (0-1); EOSINOPHILS # (AUTO) 0.1 X10'3 (0-0.9); EOSINOPHILS % (AUTO) 1.8 % (0-6); HEMOGLOBIN 14.9 g/dl (14.0-17.9); LYMPHOCYTES # (AUTO) 2.1 X10'3 (1.1-4.8); LYMPHOCYTES % (AUTO) 30.6 % (21-51); MEAN CORPUSCULAR HEMOGLOBIN 28.1 PG (27.0-31.0); MEAN CORPUSCULAR HGB CONC 33.8 g/dL (33.0-36.5); MEAN CORPUSCULAR VOLUME 83.1 FL (78-98); MONOCYTES # (AUTO) 0.7 X10'3 (0-0.9); MONOCYTES % (AUTO) 10.6 % (2-12); NEUTROPHILS # (AUTO) 3.9 X10'3 (1.8-7.7); NEUTROPHILS % (AUTO) 56.3 % (42-75); PLATELET COUNT 194 X10'3 (140-440); RED CELL DISTRIBUTION WIDTH 14.4 % (11.5-14.5); WHITE BLOOD COUNT 6.9 X10'3 (4.5-11.0)
[2019-10-21 08:00] VITALS: BP 103/54
[2019-10-21] MEDS: docusate sod 100mg capsule PO SCH ×2 (08:08→21:23)
[2019-10-21] MEDS: DOXYCYCLINE 100MG CAPSULE PO SCH (08:08)
[2019-10-21] MEDS: sennosides 8.6mg tablet PO SCH ×2 (08:08→21:23)
[2019-10-21] MEDS: propranolol 10mg tablet PO SCH ×3 (08:08→21:23)
[2019-10-21] MEDS: pantoprazole 40mg Tablet.DR PO SCH (08:08)
[2019-10-21] MEDS: atomoxetine 25mg capsule PO SCH (08:08)
[2019-10-21] MEDS: nicotine 14mg patch - 24hr TD SCH (08:13)
[2019-10-21] MEDS: azelastine Nasal Spray bottle NS SCH ×2 (08:14→21:22)
[2019-10-21] MEDS: salt irrigation nasal spray 45 ML SPRAY NS SCH ×2 (08:14→21:22)
[2019-10-21 13:00] VITALS: BP 110/77
[2019-10-21] MEDS: clozapine 25mg tablet PO SCH ×2 (13:59→21:23)
[2019-10-21] MEDS: clozapine 100mg tablet PO SCH ×2 (13:59→21:23)
--- NOTE | 2019-10-21 17:13 | NUR ---
Nursing Progress Note: Legal hold: LPS Client on involuntary status for GD Report received from [facility] nurse with use of SBAR: Why are they here: Patient had been discharged previously with follow up at [facility] Team. Upon assessment by the [facility], it was determined patient was not able to obtain, food, retirement, or clothing and a 5150 for GD was written. Patient returned within hours of discharge. At time of return patient denied any symptoms related to his mental illness diagnosis of Schizophrenia. He continues to present with cognitive impairment which impedes his ability to care of himself, and requires multiple supports and external structures. Assessment What has happened this shift: Attended breakfast and took medication. He was cheerful and talkative with others. Took a nap in the morning after breakfast. He watched a movie in community room with other residents. He was pleasant with RN during 1:1. He states he is excited to be going somewhere and wants to get an apartment later. He denies SI/HI, A/VH. He smiles and laughs. S/I, H/I: Denies A/VH: Denies Sleep: 7 hrs per noc assessment. Nap in the day ADL's: Independent. Group attendance: No Were meds taken: Yes. Any med S/E: None noted Mental Status Exam Appearance: Wearing t shirt, and sweat pants. Eye contact: Good. Behavior: Calm. Content. Speech: WNL. Mood: Cheerful Affect: Congruent. Thought process: Linear, poverty of thought Thought Content: Patient focusing on discharge. Cognition: A/O X4. Insight: Poor Judgment: Fair. Interventions PRN's used: None Therapeutic interventions: 1:1 assessment, encouragement to express thoughts and feelings, therapeutic conversation, medication administration/education/monitoring, behavior monitoring, Q 15 min safety checks. Restraints/seclusion/emergency medication: N/A Justification of Continued Inpatient Treatment: Pt. continues to require a safe and supportive environment, per Dr. Treviño he is psychiatrically stable and will discharge as soon as housing is available. He is LPS conserved and awaiting placement.
[2019-10-21 19:54] VITALS: BP 112/76
[2019-10-21] MEDS: atorvastatin 10mg tablet PO SCH (21:23)
--- NOTE | 2019-10-21 23:24 | NUR ---
Nursing Progress Note: Legal hold: LPS Client on involuntary status for GD Report received from nurse with use of SBAR: KERMIT Martinez Why are they here: Patient had been discharged previously with follow up at [facility] Team. Upon assessment by the [facility], it was determined patient was not able to obtain, food, senior care, or clothing and a 5150 for GD was written. Patient returned within hours of discharge. At time of return patient denied any symptoms related to his mental illness diagnosis of Schizophrenia. He continues to present with cognitive impairment which impedes his ability to care of himself, and requires multiple supports and external structures. Assessment What has happened this shift: Pt was in TV room during shift change. He states that he is doing good with a smile. Pt took a shower. He spent some time in TV room watching a movie. Pt is aware that he might be leaving soon to [place]. He states he is happy and looking forward to this. He is goal oriented and talks about how and why he went to detention and makes statements about how he plans to never go there again. Pt is compliant with 1:1 physical assessment and took all his HS meds without any issues. Denies any hallucinations and does not really appear to be responding to internal stimuli. He request a snack stating that he missed it when they brought it out. A yogurt and fruit is provided. Pt then goes to sleep. S/I, H/I: Pt denies. A/VH: Pt denies. Sleep: Currently sleeping. See sleep assessment for total hours ADL's: Independent. 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 Eye contact: Good. Behavior: Cooperative, smiling, joking, interacting well with other patients and staff Speech: Normal rate, rhythm, and tone. Mood: "Good" Affect: Congruent with mood Thought process: Linear Thought Content: Goal oriented Cognition: A/O X4. Insight: Poor Judgment: Fair. Interventions PRN's used: None Therapeutic interventions: 1:1 assessment, encouragement to express thoughts and feelings, therapeutic conversation, medication administration/education/monitoring, behavior monitoring, Q 15 min safety checks. Restraints/seclusion/emergency medication: N/A Justification of Continued Inpatient Treatment: Pt. continues to require a safe and supportive environment, per Dr. Treviño he is psychiatrically stable and will discharge as soon as housing is available. He is LPS conserved and awaiting placement.
[2019-10-22 08:00] VITALS: BP 108/64
[2019-10-22] MEDS: DOXYCYCLINE 100MG CAPSULE PO SCH (08:18)
[2019-10-22] MEDS: propranolol 10mg tablet PO SCH ×3 (08:18→21:02)
[2019-10-22] MEDS: docusate sod 100mg capsule PO SCH ×2 (08:18→21:01)
[2019-10-22] MEDS: pantoprazole 40mg Tablet.DR PO SCH (08:18)
[2019-10-22] MEDS: sennosides 8.6mg tablet PO SCH ×2 (08:18→21:01)
[2019-10-22] MEDS: atomoxetine 25mg capsule PO SCH (08:18)
[2019-10-22] MEDS: salt irrigation nasal spray 45 ML SPRAY NS SCH ×2 (08:19→21:00)
[2019-10-22] MEDS: azelastine Nasal Spray bottle NS SCH ×2 (08:19→21:00)
[2019-10-22] MEDS: nicotine 14mg patch - 24hr TD SCH (08:19)
[2019-10-22] MEDS: clozapine 100mg tablet PO SCH ×2 (13:05→21:01)
[2019-10-22] MEDS: clozapine 25mg tablet PO SCH ×2 (14:16→21:02)
--- NOTE | 2019-10-22 17:05 | NUR ---
Nursing Progress Note: Legal hold: LPS Client on involuntary status for GD Report received from LUIS FERNANDO Lockhart with use of SBAR: Why are they here: Patient had been discharged previously with follow up at [facility] Team. Upon assessment by the [facility], it was determined patient was not able to obtain, food, custodial, or clothing and a 5150 for GD was written. Patient returned within hours of discharge. At time of return patient denied any symptoms related to his mental illness diagnosis of Schizophrenia. He continues to present with cognitive impairment which impedes his ability to care of himself, and requires multiple supports and external structures. Assessment What has happened this shift: Patient is seen resting in bed peacefully at change of shift. He takes his medications as ordered and prescribed without incident. 1:1 completed at bedside and patient states that he is a little "anxious and nervous about going to [place] maybe". He asks this narrative writer if that is a "normal feeling". Reassured patient that it is common for people to be somewhat anxious about change and some of that is due to the fear of the unknown and not knowing what to expect in a new environment. Patient states that he "feels better" and is "excited about the future". He is seen throughout the day interacting and laughing with peers and staff. He is seen in the day room watching movies. S/I, H/I: Denies A/VH: Denies Sleep: naps after breakfast ADL's: Independent. Group attendance: No Were meds taken: Yes. Any med S/E: None noted Mental Status Exam Appearance: Wearing t shirt, and sweat pants. Eye contact: Good. Behavior: Calm, friendly. Speech: WNL. Mood: euthymic Affect: Congruent to mood. Thought process: Linear, poverty of thought Thought Content: Patient focusing on discharge. Cognition: A/O X4. Insight: Poor Judgment: Fair. Interventions PRN's used: None Therapeutic interventions: 1:1 assessment, encouragement to express thoughts and feelings, therapeutic conversation, medication administration/education/monitoring, behavior monitoring, Q 15 min safety checks. Restraints/seclusion/emergency medication: N/A Justification of Continued Inpatient Treatment: Pt. continues to require a safe and supportive environment, per Dr. Treviño he is psychiatrically stable and will discharge as soon as housing is available. He is [facility] conserved and awaiting placement.
[2019-10-22 19:58] VITALS: BP 110/80
[2019-10-22] MEDS: atorvastatin 10mg tablet PO SCH (21:01)
[2019-10-22] MEDS: LORazepam 1 MG tablet PO PRN (21:02)
--- NOTE | 2019-10-22 23:40 | NUR ---
Nursing Progress Note: Legal hold: LPS Client on involuntary status for GD Report received from nurse with use of SBAR: KERMIT Martinez Why are they here: Patient had been discharged previously with follow up at [facility] Team. Upon assessment by the [facility], it was determined patient was not able to obtain, food, long-term, or clothing and a 5150 for GD was written. Patient returned within hours of discharge. At time of return patient denied any symptoms related to his mental illness diagnosis of Schizophrenia. He continues to present with cognitive impairment which impedes his ability to care of himself, and requires multiple supports and external structures. Assessment What has happened this shift: Pt was in TV room during shift change. He states he had a good day with a big smile on his face. Pt was observed interacting appropriately with other patients and staff. Pt refused vital signs stating that he doesn't like the way he feels when they are taken. Eventually pt agreed to have his vitals taken except for his temperature. Pt is observed pacing the halls and appears to be responding to increased internal stimuli. Becomes a little agitated and an Ativan was offered with his HS meds, he was agreeable to this. Pt denies any hallucinations but is clearly internally preoccupied. He continues to make gestures with his hands and appears to have a conversation with an unknown person. He is not engaging in the conversation as much but still answers questions appropriately. Pt also continues to ask for food even past snack time and he is reminded of his current diet. He later goes into the TV room to charge his ankle monitor before going to bed. No more agitation is observed. S/I, H/I: Pt denies. A/VH: Pt denies but is internally preoccupied Sleep: Currently sleeping. See sleep assessment for total hours ADL's: Independent. 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 Eye contact: Good. Behavior: Cooperative, agitated Speech: Normal rate, rhythm, and tone. Mood: "just alright" Affect: Blunted, with some intermittent brightening Thought process: Delusional Thought Content: Discharge Cognition: A/O X4. Insight: Poor Judgment: Fair. Interventions PRN's used: Ativan Therapeutic interventions: 1:1 assessment, encouragement to express thoughts and feelings, therapeutic conversation, medication administration/education/monitoring, behavior monitoring, Q 15 min safety checks. Restraints/seclusion/emergency medication: N/A Justification of Continued Inpatient Treatment: Pt. continues to require a safe and supportive environment, per Dr. Treviño he is psychiatrically stable and will discharge as soon as housing is available. He is LPS conserved and awaiting placement.
[2019-10-23] MEDS: nicotine 14mg patch - 24hr TD SCH (07:39)
[2019-10-23] MEDS: atomoxetine 25mg capsule PO SCH (07:40)
[2019-10-23] MEDS: DOXYCYCLINE 100MG CAPSULE PO SCH (07:40)
[2019-10-23] MEDS: pantoprazole 40mg Tablet.DR PO SCH (07:40)
[2019-10-23] MEDS: sennosides 8.6mg tablet PO SCH ×2 (07:40→21:14)
[2019-10-23] MEDS: propranolol 10mg tablet PO SCH ×3 (07:43→21:15)
[2019-10-23] MEDS: docusate sod 100mg capsule PO SCH ×2 (07:43→21:15)
[2019-10-23] MEDS: salt irrigation nasal spray 45 ML SPRAY NS SCH ×2 (07:44→21:14)
[2019-10-23] MEDS: azelastine Nasal Spray bottle NS SCH ×2 (07:44→21:13)
[2019-10-23 07:45] VITALS: BP 105/63
--- NOTE | 2019-10-23 13:15 | NUR ---
PLACEMENT Called [facility] office for update on placement. Zachariah's packet is currently at [facility]. MATTHIEU Strange
[2019-10-23] MEDS: clozapine 100mg tablet PO SCH ×2 (13:39→21:14)
--- NOTE | 2019-10-23 13:39 | NUR ---
Reassessment: Pt diet advanced to carb controlled diet, recommend Heart Healthy diet in view of elevated TG of 204, d/w RN and PA. Pt is eating well with double protein TID with 100% PO intake, meeting nutrient needs. LB 10/22. Will continue to monitor. Rec: 1. advance diet to heart healthy, d/w RN and PA 2. Double eggs q breakfast, double meat BIDLD 3. anti-hyperlipidemic per MD approval; TG 204 4. routine bowel care; monitor need for additional 5. wt per rx Addendum: 10/23/19 at 1340 by Wing Kenia LYN Amended: Links added. Addendum: 10/23/19 at [address] RD agree with note
[2019-10-23] MEDS: clozapine 25mg tablet PO SCH ×2 (13:40→21:15)
--- NOTE | 2019-10-23 18:13 | NUR ---
Nursing Progress Note: Legal hold: LPS Client on involuntary status for GD Report received from LUIS FERNANDO Patrick with use of SBAR: Why are they here: Patient had been discharged previously with follow up at [facility] Team. Upon assessment by the [facility], it was determined patient was not able to obtain, food, halfway, or clothing and a 5150 for GD was written. Patient returned within hours of discharge. At time of return patient denied any symptoms related to his mental illness diagnosis of Schizophrenia. He continues to present with cognitive impairment which impedes his ability to care of himself, and requires multiple supports and external structures. Assessment What has happened this shift: Patient is seen resting in bed peacefully at change of shift. He takes his medications as ordered and prescribed without incident. He is seen throughout the day interacting and laughing with peers and staff. He is seen in the day room participating in groups. He asks this casualty underwriter how to get rid of "back pain". This RN provided stretching techniques and patient was appreciative. He is seen smiling and being social. He napped intermittently. Denies SI, HI, A/VH S/I, H/I: Denies A/VH: Denies Sleep: maps intermittently ADL's: Independent. Group attendance: No Were meds taken: Yes. Any med S/E: None noted Mental Status Exam Appearance: Wearing t shirt, and sweat pants. Eye contact: Good. Behavior: Calm, friendly. Speech: WNL. Mood: euthymic Affect: Congruent to mood. Thought process: Linear, poverty of thought Thought Content: Patient focusing on discharge and back pain Cognition: A/O X4. Insight: Poor Judgment: Fair. Interventions PRN's used: None Therapeutic interventions: 1:1 assessment, encouragement to express thoughts and feelings, therapeutic conversation, medication administration/education/monitoring, behavior monitoring, Q 15 min safety checks. Restraints/seclusion/emergency medication: N/A Justification of Continued Inpatient Treatment: Pt. continues to require a safe and supportive environment, per Dr. Treviño he is psychiatrically stable and will discharge as soon as housing is available. He is LPS conserved and awaiting placement.
[2019-10-23 20:29] VITALS: BP 127/77
[2019-10-23] MEDS: atorvastatin 10mg tablet PO SCH (21:14)
--- NOTE | 2019-10-23 23:41 | NUR ---
Nursing Progress Note: Legal hold: LPS Client on involuntary status for GD Report received from nurse with use of SBAR: KERMIT Martinez Why are they here: Patient had been discharged previously with follow up at [facility] Team. Upon assessment by the [facility], it was determined patient was not able to obtain, food, mcc, or clothing and a 5150 for GD was written. Patient returned within hours of discharge. At time of return patient denied any symptoms related to his mental illness diagnosis of Schizophrenia. He continues to present with cognitive impairment which impedes his ability to care of himself, and requires multiple supports and external structures. Assessment What has happened this shift: Pt was in TV room during shift change, smiling. He spent quite some time in there. He was cooperative with physical assessment and took all his meds without any issues. Denies any S/I, H/I, AV/H, and does not appear to be responding to internal stimuli. He requested snack a couple of times but was reminded about his current diet. Pt states that it sucks being in that diet because he is always hungry. Reminded pt why he was on that diet and demonstrate understanding. Pt was given some fat free milk and crackers and he was happy with this. No agitation was observed per this shift. He spent some more time in TV room before going to sleep. S/I, H/I: Pt denies. A/VH: Pt denies Sleep: Currently sleeping. See sleep assessment for total hours ADL's: Independent. 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 Eye contact: Good. Behavior: Cooperative, calm Speech: Normal rate, rhythm, and tone. Mood: Happy Affect: congruent with mood Thought process: Circumstantial Thought Content: His current diet, food Cognition: A/O X4. Insight: Poor Judgment: Fair Interventions PRN's used: None Therapeutic interventions: 1:1 assessment, encouragement to express thoughts and feelings, therapeutic conversation, medication administration/education/monitoring, behavior monitoring, Q 15 min safety checks. Restraints/seclusion/emergency medication: N/A Justification of Continued Inpatient Treatment: Pt. continues to require a safe and supportive environment, per Dr. Treviño he is psychiatrically stable and will discharge as soon as housing is available. He is [facility] conserved and awaiting placement.
[2019-10-24] MEDS: atomoxetine 25mg capsule PO SCH (08:12)
[2019-10-24] MEDS: docusate sod 100mg capsule PO SCH ×2 (08:12→21:09)
[2019-10-24] MEDS: DOXYCYCLINE 100MG CAPSULE PO SCH (08:12)
[2019-10-24] MEDS: pantoprazole 40mg Tablet.DR PO SCH (08:13)
[2019-10-24] MEDS: nicotine 14mg patch - 24hr TD SCH (08:13)
[2019-10-24] MEDS: propranolol 10mg tablet PO SCH ×3 (08:13→21:10)
[2019-10-24] MEDS: azelastine Nasal Spray bottle NS SCH ×2 (08:13→21:10)
[2019-10-24] MEDS: salt irrigation nasal spray 45 ML SPRAY NS SCH ×2 (08:14→21:10)
[2019-10-24] MEDS: sennosides 8.6mg tablet PO SCH ×2 (08:14→21:09)
[2019-10-24 08:16] VITALS: BP 111/75
[2019-10-24] MEDS: clozapine 25mg tablet PO SCH ×2 (13:14→21:10)
[2019-10-24] MEDS: clozapine 100mg tablet PO SCH ×2 (13:14→21:10)
--- NOTE | 2019-10-24 17:02 | NUR ---
Nursing Progress Note: Legal hold: LPS Client on involuntary status for GD Report received from LUIS FERNANDO Guerrero with use of SBAR: Why are they here: Patient had been discharged previously with follow up at [facility] Team. Upon assessment by the [facility] it was determined patient was not able to obtain, food, jail, or clothing and a 5150 for GD was written. Patient returned within hours of discharge. At time of return patient denied any symptoms related to his mental illness diagnosis of Schizophrenia. He continues to present with cognitive impairment which impedes his ability to care of himself, and requires multiple supports and external structures. Assessment What has happened this shift: Received pt sleeping at shift change. Pt. awakens for breakfast and meds and then went back to bed per usual routine. Pt. is in a good mood, pacing hallways in a good mood. Socializing with staff and peers. No complaints. S/I, H/I: Denies A/VH: Denies Sleep: 6.25 hrs NOC, napped after meals. ADL's: Independent. Group attendance: No Were meds taken: Yes. Any med S/E: None noted Mental Status Exam Appearance: Clean and neat wearing personal attire. Eye contact: Good. Behavior: Cooperative and calm, social. Speech: Clear, regular rate and volume. Mood: euthymic Affect: Congruent to mood. Thought process: Linear, circumstantial. Thought Content: Patient interested in socialization and friendships on unit. Cognition: A/O X4. Insight: Poor Judgment: Fair. Interventions PRN's used: None Therapeutic interventions: 1:1 assessment, encouragement to express thoughts and feelings, therapeutic conversation, medication administration/education/monitoring, behavior monitoring, Q 15 min safety checks. Restraints/seclusion/emergency medication: N/A Justification of Continued Inpatient Treatment: Pt. continues to require a safe and supportive environment, per Dr. Treviño he is psychiatrically stable and will discharge as soon as housing is available. He is LPS conserved and awaiting placement.
[2019-10-24 19:09] VITALS: BP 120/83
[2019-10-24] MEDS: atorvastatin 10mg tablet PO SCH (21:10)
--- NOTE | 2019-10-24 22:19 | NUR ---
Nursing Progress Note: Legal hold: LPS Client on involuntary status for GD Report received from nurse with use of SBAR: KERMIT Martinez Why are they here: Patient had been discharged previously with follow up at [facility] Team. Upon assessment by the [facility], it was determined patient was not able to obtain, food, longterm, or clothing and a 5150 for GD was written. Patient returned within hours of discharge. At time of return patient denied any symptoms related to his mental illness diagnosis of Schizophrenia. He continues to present with cognitive impairment which impedes his ability to care of himself, and requires multiple supports and external structures. Assessment What has happened this shift: Pt was in TV room during shift change and was observed socializing appropriately with other patients. Pt attended snack and there were no agitation noted. Pt does not seem to be responding to any internal stimuli. Pt is cooperative during 1:1 physical assessment and took all his HS meds without any issues. Denies any hallucinations of any kind. Pt jokes about how when he was 17 he went to the club and had a lot of fun dancing. He is friendly and smiling a lot. He still hopeful he will get accepted in [facility], or just anywhere, I just want to be out here, he states. However, he is still not able to formulate a good discharge plan. After medication pass, he returns to charge his monitor. S/I, H/I: Pt denies. A/VH: Pt denies Sleep: Currently sleeping. See sleep assessment for total hours ADL's: Independent. 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 Eye contact: Good. Behavior: Cooperative, calm Speech: Normal rate, rhythm, and tone. Mood: Euthymic Affect: congruent with mood Thought process: Circumstantial Thought Content: Whatever he was watching on TV Cognition: A/O X4. Insight: Poor Judgment: Fair Interventions PRN's used: None Therapeutic interventions: 1:1 assessment, encouragement to express thoughts and feelings, therapeutic conversation, medication administration/education/monitoring, behavior monitoring, Q 15 min safety checks. Restraints/seclusion/emergency medication: N/A Justification of Continued Inpatient Treatment: Pt. continues to require a safe and supportive environment, per Dr. Treviño he is psychiatrically stable and will discharge as soon as housing is available. He is LPS conserved and awaiting placement.
[2019-10-25 07:34] VITALS: BP 106/60
[2019-10-25] MEDS: DOXYCYCLINE 100MG CAPSULE PO SCH (08:12)
[2019-10-25] MEDS: docusate sod 100mg capsule PO SCH ×2 (08:13→20:26)
[2019-10-25] MEDS: salt irrigation nasal spray 45 ML SPRAY NS SCH (08:13)
[2019-10-25] MEDS: pantoprazole 40mg Tablet.DR PO SCH (08:13)
[2019-10-25] MEDS: atomoxetine 25mg capsule PO SCH (08:13)
[2019-10-25] MEDS: azelastine Nasal Spray bottle NS SCH (08:13)
[2019-10-25] MEDS: propranolol 10mg tablet PO SCH ×3 (08:13→20:27)
[2019-10-25] MEDS: sennosides 8.6mg tablet PO SCH ×2 (08:13→20:26)
[2019-10-25] MEDS: nicotine 14mg patch - 24hr TD SCH (08:14)
--- NOTE | 2019-10-25 10:38 | NUR ---
PLACEMENT UPDATE [facility] office called to report that Zachariah has been accepted at [facility] and is #11 on the wait-list. MATTHIEU Strange
[2019-10-25] MEDS: clozapine 25mg tablet PO SCH ×2 (13:23→20:27)
[2019-10-25] MEDS: clozapine 100mg tablet PO SCH ×2 (13:23→20:27)
--- NOTE | 2019-10-25 17:46 | NUR ---
Nursing Progress Note: Zachariah Legal hold: LPS Client on involuntary status for GD Report received from LUIS FERNANDO Guerrero with use of SBAR: Why are they here: Patient had been discharged previously with follow up at [facility]. [place] [facility] [place] was not able to obtain, food, mcfp, or clothing and a 5150 for GD was written. Patient returned within hours of discharge. At time of return patient denied any symptoms related to his mental illness diagnosis of Schizophrenia. He continues to present with cognitive impairment which impedes his ability to care of himself, and requires multiple supports and external structures. Assessment What has happened this shift: Received pt sleeping at shift change. Pt. awakens for breakfast and meds and then went back to bed per usual routine. Patient has been watching t.v. with peers and socializing with friends on unit. Pt. has not been attending groups for some time. Encouraged pt in this regard. Patient talks minimally to staff, but remains in a good mood. S/I, H/I: Denies A/VH: Denies Sleep: 6.25 hrs NOC, napped after meals. ADL's: Independent. Group attendance: No Were meds taken: Yes. Any med S/E: None noted Mental Status Exam Appearance: Clean and neat wearing personal attire. Eye contact: Good. Behavior: Cooperative and calm, social. Speech: Clear, regular rate and volume. Mood: euthymic/happy. Affect: Congruent to mood. Thought process: Linear, circumstantial. Guarded. Thought Content: Discharge plans. Socializing on unit. Cognition: A/O X4. Insight: Poor Judgment: Fair. Interventions PRN's used: None Therapeutic interventions: 1:1 assessment, encouragement to express thoughts and feelings, therapeutic conversation, medication administration/education/monitoring, behavior monitoring, Q 15 min safety checks. Restraints/seclusion/emergency medication: N/A Justification of Continued Inpatient Treatment: Pt. continues to require a safe and supportive environment, per Dr. Treviño he is psychiatrically stable and will discharge as soon as housing is available. He is LPS conserved and awaiting placement.
[2019-10-25 20:22] VITALS: BP 119/80
[2019-10-25] MEDS: atorvastatin 10mg tablet PO SCH (20:27)
[2019-10-25] MEDS: acetaminophen 325mg tablet PO PRN (20:28)
[2019-10-25] MEDS: LORazepam 1 MG tablet PO PRN (20:36)
--- NOTE | 2019-10-25 22:19 | NUR ---
Pt. refused to have Nicotine Patch removed at HS, despite education. Will endorse to AM shift.
--- NOTE | 2019-10-25 23:19 | NUR ---
Nursing Progress Note: Legal hold: LPS Client on involuntary status for GD Report received from nurse with use of SBAR: LUIS FERNANDO Peraza Why are they here: Patient had been discharged previously with follow up at [facility] Team. Upon assessment by the [facility] [place], it was determined patient was not able to obtain, food, senior living, or clothing and a 5150 for GD was written. Patient returned within hours of discharge. At time of return patient denied any symptoms related to his mental illness diagnosis of Schizophrenia. He continues to present with cognitive impairment which impedes his ability to care of himself, and requires multiple supports and external structures. Assessment What has happened this shift: Pt. up sitting watching TV in Recreation Room at the beginning of the shift, he greets this aligner typewriter animatedly. However, pt. continues to present as withdrawn and guarded, interacting very minimally with others. He attends HS snack and then returns to watching TV by himself. Pt. appears to be responding to internal stimuli, he snaps his fingers, and begins talking to himself in nonsensical statements. In a deep voice he states, "Get it dog, listening to the [place] of [employer]." Then in a high pitched voice he states, "I'm scared!" He responds again in the deep voice, "Don't be scared." 1:1 completed, pt. reports that his day way good, states with a smile, "I'm feeling great!" He denies any S/I, A/V/THOMAS, and no delusional statements made. Pt. continues to report excitement r/t his potential discharge to a facility in [place]. His heart rate was slightly elevated, and he reported some anxiety, PRN Ativan administered with effectiveness. Pt. also c/o muscle spasms in his back from "sleeping wrong," PRN Tylenol administered with effectiveness. Will endorse to AM shift and continue to monitor. S/I, H/I: Denies A/VH: Pt. denies any A/V/THOMAS, however he appears to be responding to internal stimuli while watching TV Sleep: Pt. reports he has been sleeping well ADL's: Requires some prompting and direction from staff at times Group attendance: Pt reports he attends some groups Were meds taken: Yes Any med S/E: None Mental Status Exam Appearance: Presents as neat, and appropriately dressed in hospital attire Eye contact: Fair Behavior: Cooperative, anxious, restless, and guarded Speech: Soft and animated, child-like. Responds only minimally to questions. Mood: Pleasant, however restless at times Affect: Blunted Thought process: Poverty of thought Thought Content: Possible A/V/THOMAS, and excitement r/t possible discharge Cognition: A&O X4 Insight: Poor Judgment: Poor to fair Interventions PRN's used: Ativan and Tylenol Therapeutic interventions: Ensured contract for safety, maintained a safe and therapeutic environment, provided clear and simple instructions, monitored behaviors and need for intervention, provided redirection as needed, encouraged independent performance of ADLs, and maintained Q 15 min safety checks. Restraints/seclusion/emergency medication: N/A Justification of Continued Inpatient Treatment: Pt. continues to require a safe and supportive environment, and remains GD r/t mental health. He is LPS conserved and awaiting placement.
[2019-10-26] MEDS: atomoxetine 25mg capsule PO SCH (07:52)
[2019-10-26] MEDS: docusate sod 100mg capsule PO SCH ×2 (07:52→20:18)
[2019-10-26] MEDS: pantoprazole 40mg Tablet.DR PO SCH (07:52)
[2019-10-26] MEDS: DOXYCYCLINE 100MG CAPSULE PO SCH (07:52)
[2019-10-26] MEDS: propranolol 10mg tablet PO SCH ×3 (07:53→20:18)
[2019-10-26] MEDS: sennosides 8.6mg tablet PO SCH ×2 (07:53→20:18)
[2019-10-26] MEDS: nicotine 14mg patch - 24hr TD SCH (07:55)
[2019-10-26 08:00] VITALS: BP 101/70
[2019-10-26 12:37] VITALS: BP 130/64
[2019-10-26] MEDS: clozapine 100mg tablet PO SCH ×2 (13:05→20:18)
[2019-10-26] MEDS: clozapine 25mg tablet PO SCH ×2 (13:05→20:18)
--- NOTE | 2019-10-26 14:46 | NUR ---
Nursing Progress Note: Legal hold: LPS Client on involuntary status for GD Report received from nurse with use of SBAR: LUIS FERNANDO Guerrero Why are they here: Patient had been discharged previously with follow up at [facility] Team. Upon assessment by the [facility] [place], it was determined patient was not able to obtain, food, snf, or clothing and a 5150 for GD was written. Patient returned within hours of discharge. At time of return patient denied any symptoms related to his mental illness diagnosis of Schizophrenia. He continues to present with cognitive impairment which impedes his ability to care of himself, and requires multiple supports and external structures. Assessment What has happened this shift: Pt was up for breakfast, made good eye contact with this nurse and smiled brightly. Pt cooperative with meds. Applied nicotine patch, could not find the old one from yesterday but read in the nurse's notes that pt had refused to allow the patch to be removed last night. Asked pt where it was. Pt stated that he thinks it fell off. Pt went to his room and returned with 2 old nicotine patches. Asked pt to please give them to staff after he takes them off. Pt expressed understanding, pt smiled almost sheepishly. Pt interacts with staff and peers, will walk by, point at someone and smile. S/I, H/I: Pt denies A/VH: Pt denies, does not appear to be responding to internal stimuli this shift. Sleep: Pt slept 6.5 hours per noc shift report. ADL's: Independent, needs encouragement for personal hygiene at times. Group attendance: Yes Were meds taken: Yes Any med S/E: None noted or reported Mental Status Exam Appearance: Tall, heavy-set, dark haired young man. Eye contact: Good Behavior: Pleasant, cooperative, somewhat child-like socializes with staff and select peers. Speech: Clear, audible, minimal, poverty of speech Mood: Good Affect: Bright, animated Thought process: Linear, poverty of thought. Thought Content: Hungry, looks forward to meals and snacks, hopeful he will be discharged soon. Cognition: A/O X4 Insight: Poor Judgment: Poor to fair Interventions PRN's used: None Therapeutic interventions: 1:1 assessment, encouragement to express thoughts and feelings, therapeutic conversation, encouragement to perform personal hygiene, encouragement to attend groups, encouragement to give old nicotine patch when her removes it to the nurse, Q 15 min safety checks. Restraints/seclusion/emergency medication: N/A Justification of Continued Inpatient Treatment: Pt. continues to require a safe and supportive environment, and remains GD r/t mental health. He is LPS conserved and awaiting placement.
[2019-10-26] MEDS: olanzapine 10mg tablet PO PRN (19:22)
[2019-10-26 20:00] VITALS: BP 121/80
[2019-10-26] MEDS: hydrOXYzine 25 MG tablet PO PRN (20:19)
[2019-10-26] MEDS: atorvastatin 10mg tablet PO SCH (20:19)
--- NOTE | 2019-10-26 23:58 | NUR ---
Nursing Progress Note: Legal hold: LPS Client on involuntary status for GD Report received from nurse with use of SBAR: LUIS FERNANDO Barr Why are they here: Patient had been discharged previously with follow up at [facility] Team. Upon assessment by the [facility] [place], it was determined patient was not able to obtain, food, fpc, or clothing and a 5150 for GD was written. Patient returned within hours of discharge. At time of return patient denied any symptoms related to his mental illness diagnosis of Schizophrenia. He continues to present with cognitive impairment which impedes his ability to care of himself, and requires multiple supports and external structures. Assessment What has happened this shift: Pt. up sitting watching TV in Recreation Room at the beginning of the shift, he again greets this report writer animatedly. He appears to get more restless and anxious as the shift continues, and later appears to be responding to internal stimuli. Pt. gets up and goes into the hallway and appears to be talking to himself while making almost rhythmic body movements. When questioned by this wrier he continues to deny any A/V/THOMAS, states, "I'm just trying to figure out where I'm at, I get lost sometimes." He continued to pace the hallway, making nonsensical statements, laughing, and snapping his fingers. PRN Zyprexa administered with minimal effectiveness. 1:1 completed, pt. continues to deny any mental health s/s, and no delusional statements made. Ongoing response to internal stimuli exhibited, and heart rate slightly elevated. PRN Atrax administered with effectiveness. Pt. resting comfortably, will continue to monitor. S/I, H/I: Denies A/VH: Pt. denies any A/V/THOMAS, however he appears to be responding to internal stimuli while in the hallway Sleep: Pt. appears to be sleeping well, snores occasionally ADL's: Requires some prompting and direction from staff at times Group attendance: Pt reports he attends some groups Were meds taken: Yes Any med S/E: None Mental Status Exam Appearance: Presents as neat, and appropriately dressed in hospital attire Eye contact: Fair Behavior: Cooperative, anxious, restless, and guarded Speech: Soft and animated, child-like. Responds only minimally to questions. Mood: Pleasant, however restless at times Affect: Animated Thought process: Poverty of thought Thought Content: A/V/THOMAS, AEB response to internal stimuli Cognition: A&O X4 Insight: Poor Judgment: Poor to fair Interventions PRN's used: Zyprexa and Atrax Therapeutic interventions: Ensured contract for safety, maintained a safe and therapeutic environment, provided clear and simple instructions, monitored behaviors and need for intervention, attempted to reorient to reality, encouraged independent performance of ADLs, and maintained Q 15 min safety checks. Restraints/seclusion/emergency medication: N/A Justification of Continued Inpatient Treatment: Pt. continues to require a safe and supportive environment, and remains GD r/t mental health. He is LPS conserved and awaiting placement.
[2019-10-27 08:00] VITALS: BP 101/51
[2019-10-27] MEDS: DOXYCYCLINE 100MG CAPSULE PO SCH (08:21)
[2019-10-27] MEDS: pantoprazole 40mg Tablet.DR PO SCH (08:21)
[2019-10-27] MEDS: nicotine 14mg patch - 24hr TD SCH (08:21)
[2019-10-27] MEDS: sennosides 8.6mg tablet PO SCH ×2 (08:21→20:10)
[2019-10-27] MEDS: docusate sod 100mg capsule PO SCH ×2 (08:21→20:10)
[2019-10-27] MEDS: propranolol 10mg tablet PO SCH ×3 (08:21→20:10)
[2019-10-27] MEDS: clozapine 25mg tablet PO SCH ×2 (13:02→20:12)
[2019-10-27] MEDS: clozapine 100mg tablet PO SCH ×2 (13:02→20:12)
--- NOTE | 2019-10-27 15:37 | NUR ---
Nursing Progress Note: Legal hold: LPS Client on involuntary status for GD Report received from nurse with use of SBAR: LUIS FERNANDO Arango Why are they here: Patient had been discharged previously with follow up at [facility] Team. Upon assessment by the [facility] [place], it was determined patient was not able to obtain, food, residential, or clothing and a 5150 for GD was written. Patient returned within hours of discharge. At time of return patient denied any symptoms related to his mental illness diagnosis of Schizophrenia. He continues to present with cognitive impairment which impedes his ability to care of himself, and requires multiple supports and external structures. Assessment What has happened this shift: Pt friendly, upbeat, and cooperative with meds and unit procedures today. Pt did not appear to be responding to internal stimuli. Pt has new orders for Latuda 60 mg with lunch, and a january repeat dose was added to prn Zyprexa 10 mg order. S/I, H/I: Pt denies A/VH: Pt denies, does not appear to be responding to internal stimuli this shift. Sleep: Pt slept 7.25 hours per noc shift report. ADL's: Independent, needs encouragement for personal hygiene at times. Group attendance: Yes Were meds taken: Yes Any med S/E: None noted or reported Mental Status Exam Appearance: Tall, heavy-set, dark haired young man with acne. Eye contact: Good Behavior: Pleasant, cooperative, somewhat child-like socializes with staff and select peers. Speech: Clear, audible, minimal, poverty of speech Mood: Good Affect: Bright, animated Thought process: Linear, poverty of thought. Thought Content: He feels good. Cognition: A/O X4 Insight: Poor Judgment: Poor to fair Interventions PRN's used: None Therapeutic interventions: 1:1 assessment, encouragement to express thoughts and feelings, therapeutic conversation, encouragement to perform personal hygiene, encouragement to attend groups, encouragement to give old nicotine patch when her removes it to the nurse, Q 15 min safety checks. Restraints/seclusion/emergency medication: N/A Justification of Continued Inpatient Treatment: Pt. continues to require a safe and supportive environment, and remains GD r/t mental health. He is LPS conserved and awaiting placement.
[2019-10-27 19:00] VITALS: BP 136/82
[2019-10-27] MEDS: atorvastatin 10mg tablet PO SCH (20:10)
--- NOTE | 2019-10-28 00:10 | NUR ---
Nursing Progress Note: Legal hold: LPS Conserved Client on involuntary status for GD Report received from nurse with use of SBAR: LUI SFERNANDO Peterson Why are they here: Patient had been discharged previously with follow up at [facility] Team. Upon assessment by the [facility], it was determined patient was not able to obtain, food, custodial, or clothing and a 5150 for GD was written. Patient returned within hours of discharge. At time of return patient denied any symptoms related to his mental illness diagnosis of Schizophrenia. He continues to present with cognitive impairment which impedes his ability to care of himself, and requires multiple supports and external structures. Assessment What has happened this shift: Pt walking halls at change of shift, interacting with staff and peers, smiling and laughing. He is upbeat, and while pt denies A/V H, he is observed to be intermittently responding to internal stimuli while pacing the halls. Pt is conversational with this RN, talking about his day and a few of the latest happenings on the unit. No delusional statements made. He watches TV and attends snack then goes to bed within an hour of HS medication administration. S/I, H/I: Denies Both A/VH: Pt denies both, but is observed to be intermittently responding to IS Sleep: See Sleep Assessment ADL's: Independent Group attendance: N/A Were meds taken: Yes Any med S/E: None Mental Status Exam Appearance: Clean, neat wearing unit pants and personal top and hat, nonskid socks Eye contact: Fair Behavior: Cooperative, restless, attended HS snack, watching TV, pacing unit Speech: Soft and animated. Mostly minimal responses but will discuss art, clothes more at length. Mood: "I'm good" Pt is pleasant, intermittently restless Affect: Animated Thought process: Poverty of thought Thought Content: Movies to watch, latest news on the unit Cognition: A/Ox4 Insight: Poor Judgment: Poor to fair Interventions PRN's used: None Therapeutic interventions: Ensured contract for safety, maintained a safe and therapeutic environment, provided clear and simple instructions, monitored behaviors and need for intervention, attempted to reorient to reality, encouraged independent performance of ADLs, and maintained Q 15 min safety checks. Restraints/seclusion/emergency medication: N/A Justification of Continued Inpatient Treatment: Pt. continues to require a safe and supportive environment, and remains GD r/t mental health. [facility]ed to [facility], currently #11 on the waitlist.
[2019-10-28 07:40] VITALS: BP 109/70
[2019-10-28] MEDS: DOXYCYCLINE 100MG CAPSULE PO SCH (07:52)
[2019-10-28] MEDS: pantoprazole 40mg Tablet.DR PO SCH (07:52)
[2019-10-28] MEDS: sennosides 8.6mg tablet PO SCH ×2 (07:53→20:13)
[2019-10-28] MEDS: docusate sod 100mg capsule PO SCH ×2 (07:53→20:13)
[2019-10-28] MEDS: propranolol 10mg tablet PO SCH ×3 (07:53→20:14)
[2019-10-28] MEDS: nicotine 14mg patch - 24hr TD SCH (07:57)
[2019-10-28] MEDS: clozapine 25mg tablet PO SCH ×2 (13:03→20:14)
[2019-10-28] MEDS: clozapine 100mg tablet PO SCH ×2 (13:03→20:14)
[2019-10-28] MEDS: lurasidone 60mg tablet PO SCH (13:03)
[2019-10-28 13:10] VITALS: BP 105/81
--- NOTE | 2019-10-28 17:54 | NUR ---
Nursing Progress Note: Legal hold: LPS Client on involuntary status for GD Report received from nurse with use of SBAR: LUIS FERNANDO Jorge Why are they here: Patient had been discharged previously with follow up at [facility]. [place] [facility] [place] determined patient was not able to obtain, food, group home, or clothing and a 5150 for GD was written. Patient returned within hours of discharge. At time of return patient denied any symptoms related to his mental illness diagnosis of Schizophrenia. He continues to present with cognitive impairment which impedes his ability to care of himself, and requires multiple supports and external structures. Assessment What has happened this shift: Observed that pt received an Ensure shake on his breakfast tray, it was also listed on his meal ticket, order was D/c'd last week. Called and left a message for the psychiatric social worker supervisor. Meal ticket was corrected for lunch and dinner, pt did not receive the Ensure shake. Pt continues to request second helpings, stated, "it's rice and chicken, it's healthy." Pt amenable to receiving salads on his lunch and dinner trays, states with any dressing but Taiwanese, he doesn't like Taiwanese. Added to dietary order a request for salads with lunch and dinner. Nutrition and healthy weight education provided. Will put in a request for a dietary consult. S/I, H/I: Pt denies A/VH: Pt denies, does not appear to be responding to internal stimuli this shift. Sleep: Pt reports sleeping well. ADL's: Independent, needs encouragement for personal hygiene at times. Group attendance: Yes Were meds taken: Yes Any med S/E: None noted or reported Mental Status Exam Appearance: Tall, heavy-set, dark haired young man with acne. Eye contact: Good Behavior: Pleasant, cooperative, somewhat child-like socializes with staff and select peers. Speech: Clear, audible, minimal, poverty of speech Mood: Good Affect: Bright, animated Thought process: Linear, poverty of thought. Thought Content: Wants more food, states, "it's so small." Cognition: A/O X4 Insight: Poor Judgment: Poor to fair Interventions PRN's used: None Therapeutic interventions: 1:1 assessment, encouragement to express thoughts and feelings, therapeutic conversation, encouragement to perform personal hygiene, encouragement to attend groups weight management and nutrition education, Q 15 min safety checks. Restraints/seclusion/emergency medication: N/A Justification of Continued Inpatient Treatment: Pt. continues to require a safe and supportive environment, and remains GD r/t mental health. He is LPS conserved and awaiting placement.
--- NOTE | 2019-10-28 19:04 | NUR ---
Nutrition consult re: "Pt has gained 40 lbs since admit, c/o hunger". Pt currently on CHO controlled diet documented with 100% PO intake while receiving double protein TID. Pt previously receiving Ensure High Protein with 100% PO intake however ONS was discontinued 10/20. Per RN notes pt still received ONS at breakfast this morning, dietary has been informed to discontinue ONS. D/w RN who reports pt is also receiving snacks between meal trays and is walking in the hallways to increase physical activity. D/w RN that pt currently on several medications that can contribute to increased appetite and wt gain. RN agreed to continue double protein TID and increase fruit and vegetables on meal trays, d/w dietary. Pt now with diet order to receive a salad q breakfast and lunch, per RN note pt requesting salad q lunch and dinner, d/w dietary. Encouraged RN to reach out to RD team for any additional preferences/nutritional concerns. Will continue to follow. Addendum: 10/28/19 at [address] Amended: Links added.
[2019-10-28 20:00] VITALS: BP 121/82
[2019-10-28] MEDS: atorvastatin 10mg tablet PO SCH (20:13)
--- NOTE | 2019-10-29 01:49 | NUR ---
Nursing Progress Note: Legal hold: LPS Conserved Client on involuntary status for GD Report received from nurse with use of SBAR: LUIS FERNANDO Fox Why are they here: Patient had been discharged previously with follow up at [facility] Team. Upon assessment by the [facility], it was determined patient was not able to obtain, food, group home, or clothing and a 5150 for GD was written. Patient returned within hours of discharge. At time of return patient denied any symptoms related to his mental illness diagnosis of Schizophrenia. He continues to present with cognitive impairment which impedes his ability to care of himself, and requires multiple supports and external structures. Assessment What has happened this shift: Pt working on a puzzle at change of shift in group room, and didn't change activity until completed. After pt began walking the halls and watching TV. Pt denies signs and symptoms but continues to exhibit intermittent response to internal stimuli. His mood remains positive, and he frequently laughs and socializes with both staff and peers. Pt inquired as to when a nurse he likes will return because "he is a cool katrin" and had a few questions related to his diet. Education provided on dietary's plan for pt; he will need reinforcement and assistance in making healthier choices and portion control. Pt requested a sleep aid shortly after HS medication administration stating "I dunno, I just think I need it"; RN advised pt to let his medications take effect. Pt agreed, and was subsequently observed to be sleeping with an occasional snore during checks. S/I, H/I: Denies Both A/VH: Denies both, but is observed to be intermittently responding to IS Sleep: See Sleep Assessment ADL's: Independent Group attendance: N/A Were meds taken: Yes Any med S/E: None Mental Status Exam Appearance: Clean, neat wearing unit pants and personal top, nonskid socks Eye contact: Good Behavior: Cooperative, attended HS snack, watching TV, pacing unit, completed a puzzle, attended HS snack Speech: Soft, audible Mood: "Good" Pt is pleasant, intermittently restless Affect: Animated Thought process: Poverty of thought Thought Content: Inquiring about the return of a staff member that the pt likes who is out on work injury, Questions r/t his diet Cognition: A/Ox4 Insight: Poor Judgment: Poor to fair Interventions PRN's used: None Therapeutic interventions: Ensured contract for safety, maintained a safe and therapeutic environment, provided clear and simple instructions, monitored behaviors and need for intervention, attempted to reorient to reality, encouraged independent performance of ADLs, and maintained Q 15 min safety checks. Restraints/seclusion/emergency medication: N/A Justification of Continued Inpatient Treatment: Pt. continues to require a safe and supportive environment, and remains GD r/t mental health. Accepted to [facility], currently #11 on the waitlist.
[2019-10-29 07:12] VITALS: BP 102/67
[2019-10-29] MEDS: pantoprazole 40mg Tablet.DR PO SCH (08:36)
[2019-10-29] MEDS: propranolol 10mg tablet PO SCH ×3 (08:36→20:25)
[2019-10-29] MEDS: sennosides 8.6mg tablet PO SCH ×2 (08:36→20:20)
[2019-10-29] MEDS: docusate sod 100mg capsule PO SCH ×2 (08:36→20:20)
[2019-10-29] MEDS: nicotine 14mg patch - 24hr TD SCH (08:37)
[2019-10-29] MEDS: DOXYCYCLINE 100MG CAPSULE PO SCH (08:38)
[2019-10-29] MEDS: lurasidone 60mg tablet PO SCH (12:40)
[2019-10-29] MEDS: clozapine 100mg tablet PO SCH ×2 (13:04→20:19)
[2019-10-29] MEDS: clozapine 25mg tablet PO SCH ×2 (13:04→20:19)
--- NOTE | 2019-10-29 14:07 | NUR ---
Nursing Progress Note: Legal hold: LPS Client on involuntary status for GD Report received from nurse with use of SBAR: LUIS FERNANDO Muhammad Why are they here: Patient had been discharged previously with follow [place] [facility]. [place] [facility] [place] was not able to obtain, food, jail, or clothing and a 5150 for GD was written. Patient returned within hours of discharge. At time of return patient denied any symptoms related to his mental illness diagnosis of Schizophrenia. He continues to present with cognitive impairment which impedes his ability to care of himself, and requires multiple supports and external structures. Assessment What has happened this shift: Patient is resting in bed peacefully at change of shift. He is pleasant and cooperative with care and takes his medications as ordered. He states that he "feels pretty good today". He denies SI/HI and also currently denies A/VH. He is seen being social with both peers and staff. He does not appear to be responding to internal stimuli. Will continue to monitor. S/I, H/I: Pt denies A/VH: Pt denies, does not appear to be responding to internal stimuli this shift. Sleep: Pt reports sleeping well, naps intermittently this shift. ADL's: Independent, needs encouragement for personal hygiene at times. Group attendance: Yes Were meds taken: Yes Any med S/E: None noted or reported Mental Status Exam Appearance: in street clothes Eye contact: Good Behavior: Pleasant, social, cooperative, somewhat child-like socializes with staff and select peers. Speech: Clear Mood: Good Affect: Bright, animated Thought process: Linear, poverty of thought. Thought Content: "just hanging out". Cognition: A/O X4 Insight: Poor Judgment: Poor to fair Interventions PRN's used: None Therapeutic interventions: 1:1 assessment, encouragement to express thoughts and feelings, therapeutic conversation, encouragement to perform personal hygiene, encouragement to attend groups weight management and nutrition education, Q 15 min safety checks. Restraints/seclusion/emergency medication: N/A Justification of Continued Inpatient Treatment: Pt. continues to require a safe and supportive environment, and remains GD r/t mental health. He is LPS conserved and awaiting placement.
[2019-10-29 20:00] VITALS: BP 113/76
[2019-10-29] MEDS: atorvastatin 10mg tablet PO SCH (20:20)
--- NOTE | 2019-10-29 20:45 | NUR ---
Nursing Progress Note: Legal hold: LPS Client on involuntary status for GD Report received from nurse with use of SBAR: LUIS FERNANDO Fox Why are they here: Patient had been discharged previously with follow up at [facility] Team. Upon assessment by the [facility] [place], it was determined patient was not able to obtain, food, longterm, or clothing and a 5150 for GD was written. Patient returned within hours of discharge. At time of return patient denied any symptoms related to his mental illness diagnosis of Schizophrenia. He continues to present with cognitive impairment which impedes his ability to care of himself, and requires multiple supports and external structures. Assessment What has happened this shift: Patient is up pacing at change of shift. He is pleasant and cooperative with care and takes his medications as ordered. He states that he "feels pretty good today". He denies SI/HI and also currently denies A/VH. He is seen being social with both peers and staff. He does not appear to be responding to internal stimuli. Will continue to monitor. S/I, H/I: Pt denies A/VH: Pt denies, does not appear to be responding to internal stimuli this shift. Sleep: Pt reports sleeping well, naps intermittently this shift. ADL's: Independent, needs encouragement for personal hygiene at times. Group attendance: Yes Were meds taken: Yes Any med S/E: None noted or reported Mental Status Exam Appearance: in street clothes Eye contact: Good Behavior: Pleasant, social, cooperative, somewhat child-like socializes with staff and select peers. Speech: Clear Mood: Good Affect: Bright, animated Thought process: Linear, poverty of thought. Thought Content: "just hanging out". Cognition: A/O X4 Insight: Poor Judgment: Poor to fair Interventions PRN's used: None Therapeutic interventions: 1:1 assessment, encouragement to express thoughts and feelings, therapeutic conversation, encouragement to perform personal hygiene, encouragement to attend groups weight management and nutrition education, Q 15 min safety checks. Restraints/seclusion/emergency medication: N/A Justification of Continued Inpatient Treatment: Pt. continues to require a safe and supportive environment, and remains GD r/t mental health. He is LPS conserved and awaiting placement.
[2019-10-30] MEDS: DOXYCYCLINE 100MG CAPSULE PO SCH (07:41)
[2019-10-30] MEDS: pantoprazole 40mg Tablet.DR PO SCH (07:41)
[2019-10-30] MEDS: propranolol 10mg tablet PO SCH ×3 (07:42→20:15)
[2019-10-30] MEDS: sennosides 8.6mg tablet PO SCH ×2 (07:42→20:14)
[2019-10-30] MEDS: docusate sod 100mg capsule PO SCH ×2 (07:42→20:15)
[2019-10-30] MEDS: nicotine 14mg patch - 24hr TD SCH (07:43)
[2019-10-30 08:00] VITALS: BP 117/68
[2019-10-30] MEDS: lurasidone 60mg tablet PO SCH (12:12)
[2019-10-30] MEDS: clozapine 100mg tablet PO SCH ×2 (13:23→20:16)
[2019-10-30] MEDS: clozapine 25mg tablet PO SCH ×2 (13:23→20:15)
--- NOTE | 2019-10-30 15:24 | NUR ---
Nursing Progress Note: [employer] Legal hold: LPS Client on involuntary status for GD Report received from salesperson surgical appliances RN Why are they here: Patient had been discharged previously with follow up at [facility] Team. Upon assessment by the [facility] [place], it was determined patient was not able to obtain, food, residential, or clothing and a 5150 for GD was written. Patient returned within hours of discharge. At time of return patient denied any symptoms related to his mental illness diagnosis of Schizophrenia. He continues to present with cognitive impairment which impedes his ability to care of himself, and requires multiple supports and external structures. Assessment What has happened this shift: Client in bed resting to begin the shift. He woke for medications and was pleasant with this software writer. Denies any current somatic complaints. Client presented for breakfast and consumed 100% of breakfast. No behavioral issues as of this writing. Client has been visible on unit and appropriate with staff as well as peers. Client consumed 100% of lunch. No PRN medications issued this shift. S/I, H/I: Pt denies A/VH: Pt denies, does not appear to be responding to internal stimuli this shift. Sleep: ADL's: Independent, needs encouragement for personal hygiene at times. Group attendance: Yes Were meds taken: Yes Any med S/E: None noted or reported Mental Status Exam Appearance: in street clothes Eye contact: Good Behavior: Pleasant, social, cooperative, somewhat child-like socializes with staff and select peers. Speech: Clear Mood: Good Affect: Bright, animated Thought process: Linear, poverty of thought. Thought Content: "just hanging out". Cognition: A/O X4 Insight: Poor Judgment: Poor to fair Interventions PRN's used: None Therapeutic interventions: 1:1 assessment, encouragement to express thoughts and feelings, therapeutic conversation, encouragement to perform personal hygiene, encouragement to attend groups weight management and nutrition education, Q 15 min safety checks. Restraints/seclusion/emergency medication: N/A Justification of Continued Inpatient Treatment: Pt. continues to require a safe and supportive environment, and remains GD r/t mental health. He is LPS conserved and awaiting placement.
[2019-10-30] MEDS: atorvastatin 10mg tablet PO SCH (20:14)
[2019-10-30 20:25] VITALS: BP 115/77
--- NOTE | 2019-10-30 21:34 | NUR ---
Nursing Progress Note: [employer] Legal hold: LPS Client on involuntary status for GD Report received from Dominique GOULD Why are they here: Patient had been discharged previously with follow up at [facility] Team. Upon assessment by the [facility], it was determined patient was not able to obtain, food, longterm, or clothing and a 5150 for GD was written. Patient returned within hours of discharge. At time of return patient denied any symptoms related to his mental illness diagnosis of Schizophrenia. He continues to present with cognitive impairment which impedes his ability to care of himself, and requires multiple supports and external structures. Assessment What has happened this shift: Clientup in rec room watching Tv to begin the shift. He was pleasant with this film writer. Denies any current somatic complaints. Client presented for snack and consumed 100% . No behavioral issues as of this writing. Client has been visible on unit and appropriate with staff as well as peers. No PRN medications issued this shift. S/I, H/I: Pt denies A/VH: Pt denies, does not appear to be responding to internal stimuli this shift. Sleep: ADL's: Independent, needs encouragement for personal hygiene at times. Group attendance: Yes Were meds taken: Yes Any med S/E: None noted or reported Mental Status Exam Appearance: in street clothes Eye contact: Good Behavior: Pleasant, social, cooperative, somewhat child-like socializes with staff and select peers. Speech: Clear Mood: Good Affect: Bright, animated Thought process: Linear, poverty of thought. Thought Content: "just hanging out". Cognition: A/O X4 Insight: Poor Judgment: Poor to fair Interventions PRN's used: None Therapeutic interventions: 1:1 assessment, encouragement to express thoughts and feelings, therapeutic conversation, encouragement to perform personal hygiene, encouragement to attend groups weight management and nutrition education, Q 15 min safety checks. Restraints/seclusion/emergency medication: N/A Justification of Continued Inpatient Treatment: Pt. continues to require a safe and supportive environment, and remains GD r/t mental health. He is LPS conserved and awaiting placement.
[2019-10-31 07:44] VITALS: BP 147/74
[2019-10-31] MEDS: pantoprazole 40mg Tablet.DR PO SCH (08:15)
[2019-10-31] MEDS: DOXYCYCLINE 100MG CAPSULE PO SCH (08:16)
[2019-10-31] MEDS: sennosides 8.6mg tablet PO SCH ×2 (08:16→20:13)
[2019-10-31] MEDS: docusate sod 100mg capsule PO SCH ×2 (08:16→20:12)
[2019-10-31] MEDS: propranolol 10mg tablet PO SCH ×3 (08:16→20:13)
[2019-10-31] MEDS: nicotine 14mg patch - 24hr TD SCH (08:19)
--- NOTE | 2019-10-31 12:34 | NUR ---
Nursing Progress Note: [employer] Legal hold: LPS Client on involuntary status for GD Report received from shiftman RN Why are they here: Patient had been discharged previously with follow up at [facility] Team. Upon assessment by the [facility] [place], it was determined patient was not able to obtain, food, long-term, or clothing and a 5150 for GD was written. Patient returned within hours of discharge. At time of return patient denied any symptoms related to his mental illness diagnosis of Schizophrenia. He continues to present with cognitive impairment which impedes his ability to care of himself, and requires multiple supports and external structures. Assessment What has happened this shift: Patient was asleep at change of shift and up for breakfast. Patient happy and smiling. Patient is social and goes to group. Patient denies SI and HI. Patient denies A/V hallucinations. Patient does not appear to be responding to internal stimuli. S/I, H/I: Pt denies A/VH: Pt denies, does not appear to be responding to internal stimuli this shift. Sleep: No naps ADL's: Independent Group attendance: Yes Were meds taken: Yes Any med S/E: None noted or reported Mental Status Exam Appearance: in street clothes Eye contact: Good Behavior: Pleasant, social, cooperative, Speech: Clear Mood: Pleasant Affect: Bright, animated Thought process: Linear Thought Content: Cognition: A/O X4 Insight: Poor Judgment: Poor to fair Interventions PRN's used: None Therapeutic interventions: 1:1 assessment, encouragement to express thoughts and feelings, therapeutic conversation, encouragement to perform personal hygiene, encouragement to attend groups weight management and nutrition education, Q 15 min safety checks. Restraints/seclusion/emergency medication: N/A Justification of Continued Inpatient Treatment: Pt. continues to require a safe and supportive environment, and remains GD r/t mental health. He is LPS conserved and awaiting placement.
[2019-10-31] MEDS: clozapine 25mg tablet PO SCH ×2 (13:23→20:13)
[2019-10-31] MEDS: clozapine 100mg tablet PO SCH ×2 (13:23→20:14)
[2019-10-31] MEDS: lurasidone 60mg tablet PO SCH (13:23)
--- NOTE | 2019-10-31 14:50 | NUR ---
Reassessment: Pt PO 75-100% avg carb controlled meals meeting needs. LBM 10/29 receiving colace and senna. Will continue to monitor. Rec: 1. advance diet to heart healthy, d/w RN and PA 2. Double eggs q breakfast, double meat BIDLD; extra fruits/vegetables on meal trays; salad BIDLD 3. anti-hyperlipidemic per MD approval; TG 204 4. routine bowel care; monitor need for additional 5. wt per rx Addendum: 10/31/19 at [address] Amended: Links added.
[2019-10-31 20:00] VITALS: BP 122/80
[2019-10-31] MEDS: atorvastatin 10mg tablet PO SCH (20:13)
--- NOTE | 2019-10-31 21:06 | NUR ---
Nursing Progress Note: [employer] Legal hold: LPS Client on involuntary status for GD Report received from rating clerk RN Why are they here: Patient had been discharged previously with follow up at [facility] Team. Upon assessment by the [facility], it was determined patient was not able to obtain, food, correction, or clothing and a 5150 for GD was written. Patient returned within hours of discharge. At time of return patient denied any symptoms related to his mental illness diagnosis of Schizophrenia. He continues to present with cognitive impairment which impedes his ability to care of himself, and requires multiple supports and external structures. Assessment What has happened this shift: Patient was up at change of shift and pacing the jama with some responce to internal stimuli. Patient happy and smiling. Patient is social and goes to group. Patient denies SI and HI. Patient denies A/V hallucinations. Patient does not appear to be responding to internal stimuli. S/I, H/I: Pt denies A/VH: Pt denies, does not appear to be responding to internal stimuli this shift. Sleep: No naps ADL's: Independent Group attendance: Yes Were meds taken: Yes Any med S/E: None noted or reported Mental Status Exam Appearance: in street clothes Eye contact: Good Behavior: Pleasant, social, cooperative, Speech: Clear Mood: Pleasant Affect: Bright, animated Thought process: Linear Thought Content: Cognition: A/O X4 Insight: Poor Judgment: Poor to fair Interventions PRN's used: None Therapeutic interventions: 1:1 assessment, encouragement to express thoughts and feelings, therapeutic conversation, encouragement to perform personal hygiene, encouragement to attend groups weight management and nutrition education, Q 15 min safety checks. Restraints/seclusion/emergency medication: N/A Justification of Continued Inpatient Treatment: Pt. continues to require a safe and supportive environment, and remains GD r/t mental health. He is LPS conserved and awaiting placement.
[2019-11-01] MEDS: docusate sod 100mg capsule PO SCH ×2 (07:17→20:10)
[2019-11-01] MEDS: sennosides 8.6mg tablet PO SCH ×2 (07:17→20:10)
[2019-11-01] MEDS: propranolol 10mg tablet PO SCH ×3 (07:17→20:11)
[2019-11-01] MEDS: pantoprazole 40mg Tablet.DR PO SCH (07:17)
[2019-11-01] MEDS: DOXYCYCLINE 100MG CAPSULE PO SCH (07:17)
[2019-11-01] MEDS: nicotine 14mg patch - 24hr TD SCH (07:18)
--- NOTE | 2019-11-01 07:58 | NUR ---
Placement Presenting Issues: Pt's LPS conserved & on [place], awaiting placement services via [facility]. Interventions: SS had t/c with [facility] office to f/u on pt's placement services, per t/c, pt's placement referral is being reviewed by [facility], pt's # 11 on waitlist @ [facility] Plan: SS will continue to engage [facility] [place] in dcp & placement activities. Shirin Carlos LCSW Addendum: 11/01/19 at 0801 by Shirin Carlos Amended: Links added.
[2019-11-01 08:00] VITALS: BP 119/56
[2019-11-01] MEDS: lurasidone 60mg tablet PO SCH (12:05)
[2019-11-01] MEDS: clozapine 100mg tablet PO SCH ×2 (14:32→20:11)
[2019-11-01] MEDS: clozapine 25mg tablet PO SCH ×2 (14:32→20:11)
--- NOTE | 2019-11-01 17:06 | NUR ---
Nursing Progress Note: [employer] Legal hold: LPS Client on involuntary status for GD Report received from ranch rider RN Why are they here: Patient had been discharged previously with follow up at [facility] Team. Upon assessment by the [facility] [place], it was determined patient was not able to obtain, food, fpc, or clothing and a 5150 for GD was written. Patient returned within hours of discharge. At time of return patient denied any symptoms related to his mental illness diagnosis of Schizophrenia. He continues to present with cognitive impairment which impedes his ability to care of himself, and requires multiple supports and external structures. Assessment What has happened this shift: Patient was in bed to begin the shift. He woke for medications and assessment and was amicable but went back to sleep and remains in his bed at the time of this writing (1110 hours). Client awake at 1145. Noon medications passed with no issues. No behavioral issues this shift and client is compliant with all aspects of his care. S/I, H/I: Pt denies A/VH: Pt denies, does not appear to be responding to internal stimuli this shift. Sleep: 6.75 last shift ADL's: Independent Group attendance: yes Were meds taken: Yes Any med S/E: None noted or reported Mental Status Exam Appearance: in street clothes Eye contact: Good Behavior: Pleasant, social, cooperative, Speech: Clear Mood: Pleasant Affect: Bright, animated Thought process: Linear Thought Content: Cognition: A/O X4 Insight: Poor Judgment: Poor to fair Interventions PRN's used: None Therapeutic interventions: 1:1 assessment, encouragement to express thoughts and feelings, therapeutic conversation, encouragement to perform personal hygiene, encouragement to attend groups weight management and nutrition education, Q 15 min safety checks. Restraints/seclusion/emergency medication: N/A
[2019-11-01] MEDS: NICOTINE POLACRILEX 2 MG LOZENGE BC PRN (19:34)
[2019-11-01] MEDS: atorvastatin 10mg tablet PO SCH (20:11)
[2019-11-01 20:26] VITALS: BP 111/77
--- NOTE | 2019-11-02 00:42 | NUR ---
Nursing Progress Note: Legal hold: LPS Client on involuntary status for GD Report received from nurse with use of SBAR: LUIS FERNANDO De Paz Why are they here: Patient had been discharged previously with follow up at [facility]. [place] [facility] [place] determined patient was not able to obtain, food, [facility], or clothing and a 5150 for GD was written. Patient returned within hours of discharge. At time of return patient denied any symptoms related to his mental illness diagnosis of Schizophrenia. He continues to present with cognitive impairment which impedes his ability to care of himself, and requires multiple supports and external structures. Assessment What has happened this shift: Pt. up sitting watching TV in Recreation Room at the beginning of the shift, he remains here throughout the shit interacting minimally with others. Pt. approached this specifications writer and requested PRN Nicotine Lozenge, administered with effectiveness. 1:1 completed, pt. presents as animated, however remains guarded. He continues to deny any mental health s/s, does not appear to be responding to internal stimuli, and no delusional statements made. Pt. reports in a hopeful and upbeat way that they continue to look for placement for him. He states, "I am on the waiting list at [facility] but it will take a while, so they are looking into other places." S/I, H/I: Denies A/VH: Pt. denies any A/V/THOMAS, does not appear to be responding to internal stimuli Sleep: Pt. appears to be sleeping well, snores occasionally ADL's: Requires some prompting and direction from staff at times Group attendance: Pt reports he attends some groups Were meds taken: Yes Any med S/E: None Mental Status Exam Appearance: Presents as neat, and appropriately dressed in hospital attire Eye contact: Fair Behavior: Cooperative and guarded Speech: Soft and animated, child-like. Responds only minimally to questions. Mood: Pleasant, however guarded Affect: Animated Thought process: Poverty of thought Thought Content: Preoccupation with desire to discharge Cognition: A&O X4 Insight: Poor Judgment: Poor to fair Interventions PRN's used: Nicotine Lozenge Therapeutic interventions: Ensured contract for safety, maintained a safe and therapeutic environment, provided clear and simple instructions, monitored behaviors and need for intervention, provided positive encouragement, encouraged independent performance of ADLs, and maintained Q 15 min safety checks. Restraints/seclusion/emergency medication: N/A Justification of Continued Inpatient Treatment: Pt. continues to require a safe and supportive environment, and remains GD r/t mental health. He is LPS conserved and awaiting placement.
[2019-11-02] MEDS: docusate sod 100mg capsule PO SCH ×2 (07:39→20:51)
[2019-11-02] MEDS: pantoprazole 40mg Tablet.DR PO SCH (07:39)
[2019-11-02] MEDS: sennosides 8.6mg tablet PO SCH ×2 (07:39→20:51)
[2019-11-02] MEDS: propranolol 10mg tablet PO SCH ×3 (07:39→20:52)
[2019-11-02] MEDS: DOXYCYCLINE 100MG CAPSULE PO SCH (07:39)
[2019-11-02] MEDS: nicotine 14mg patch - 24hr TD SCH (08:00)
[2019-11-02 08:24] VITALS: BP 114/64
[2019-11-02] MEDS: clozapine 100mg tablet PO SCH ×2 (13:12→20:51)
[2019-11-02] MEDS: lurasidone 60mg tablet PO SCH (13:12)
[2019-11-02] MEDS: clozapine 25mg tablet PO SCH ×2 (13:12→20:52)
[2019-11-02] MEDS: NICOTINE POLACRILEX 2 MG LOZENGE BC PRN ×2 (13:27→21:36)
[2019-11-02] MEDS: LORazepam 1 MG tablet PO PRN (14:20)
--- NOTE | 2019-11-02 16:02 | NUR ---
Nursing Progress Note: Legal hold: LPS Client on involuntary status for GD Report received from Jose Guerrero RN Why are they here: Patient had been discharged previously with follow up at [facility] Team. Upon assessment by the [facility] [place], it was determined patient was not able to obtain, food, nursing home, or clothing and a 5150 for GD was written. Patient returned within hours of discharge. At time of return patient denied any symptoms related to his mental illness diagnosis of Schizophrenia. He continues to present with cognitive impairment which impedes his ability to care of himself, and requires multiple supports and external structures. Assessment Patient is resting in bed peacefully at change of shift. He is tired and states that he would just like to sleep "a little longer". He is pleasant and cooperative and takes his medications as ordered without incident. He is seen taking part in groups and eats meals in the community room. He currently denies SI, HI, A/VH. He is seen being social with staff and peers and asks for a nicotine lozenge as a PRN. He reports he "feels good" and smiles often. Denies needs. S/I, H/I: Pt denies A/VH: Pt denies, does not appear to be responding to internal stimuli this shift. Sleep: 6.75 last shift ADL's: Independent Group attendance: yes Were meds taken: Yes Any med S/E: None noted or reported Mental Status Exam Appearance: in street clothes Eye contact: Good Behavior: Pleasant, social, cooperative, Speech: Clear Mood: Pleasant Affect: Bright, animated Thought process: Linear Thought Content: Cognition: A/O X4 Insight: Poor Judgment: Poor to fair Interventions PRN's used: None Therapeutic interventions: 1:1 assessment, encouragement to express thoughts and feelings, therapeutic conversation, encouragement to perform personal hygiene, encouragement to attend groups weight management and nutrition education, Q 15 min safety checks. Restraints/seclusion/emergency medication: N/A
[2019-11-02 20:00] VITALS: BP 120/75
[2019-11-02] MEDS: atorvastatin 10mg tablet PO SCH (20:52)
--- NOTE | 2019-11-03 00:49 | NUR ---
Nursing Progress Note: Legal hold: LPS Client on involuntary status for GD Report received from nurse with use of SBAR: LUIS FERNANDO Martinez Why are they here: Patient had been discharged previously with follow up at [facility] Team. Upon assessment by the [facility] [place], it was determined patient was not able to obtain, food, fpc, or clothing and a 5150 for GD was written. Patient returned within hours of discharge. At time of return patient denied any symptoms related to his mental illness diagnosis of Schizophrenia. He continues to present with cognitive impairment which impedes his ability to care of himself, and requires multiple supports and external structures. Assessment What has happened this shift: Pt. up watching TV in Recreation Room at the beginning of the shift, he is observed to be appropriately interacting minimally with others. He greets this tech writer and other staff members animatedly. 1:1 completed, following HS snack. Pt. remains slightly guarded with conversation, however he reports he had a good day and attended groups. Pt. states, "I katie a volcano with lava coming out to show negative thoughts." When this tech writer questioned pt. regarding what his negative thoughts are, he laughed and replied, "Nothing, I'm doing good now!" He continues to deny any mental health s/s, does not appear to be responding to internal stimuli, and no delusional statements made. S/I, H/I: Denies A/VH: Pt. denies any A/V/THOMAS, does not appear to be responding to internal stimuli Sleep: Pt. appears to be sleeping well, snores occasionally ADL's: Requires some prompting and direction from staff at times Group attendance: Pt reports he attended groups today and participated Were meds taken: Yes Any med S/E: None Mental Status Exam Appearance: Presents as neat, and appropriately dressed in hospital attire Eye contact: Good Behavior: Cooperative and slightly guarded Speech: Soft and animated, child-like. Responds only minimally to questions. Mood: Pleasant Affect: Animated Thought process: Poverty of thought Thought Content: Continued preoccupation with desire to discharge Cognition: A&O X4 Insight: Poor Judgment: Poor to fair Interventions PRN's used: Nicotine Lozenge Therapeutic interventions: Ensured contract for safety, maintained a safe and therapeutic environment, provided clear and simple instructions, monitored behaviors and need for intervention, provided positive encouragement, encouraged independent performance of ADLs, and maintained Q 15 min safety checks. Restraints/seclusion/emergency medication: N/A Justification of Continued Inpatient Treatment: Pt. continues to require a safe and supportive environment, and remains GD r/t mental health. He is LPS conserved and awaiting placement.
[2019-11-03 08:00] VITALS: BP 118/65
[2019-11-03] MEDS: pantoprazole 40mg Tablet.DR PO SCH (08:11)
[2019-11-03] MEDS: docusate sod 100mg capsule PO SCH ×2 (08:11→20:19)
[2019-11-03] MEDS: DOXYCYCLINE 100MG CAPSULE PO SCH (08:12)
[2019-11-03] MEDS: sennosides 8.6mg tablet PO SCH ×2 (08:12→20:19)
[2019-11-03] MEDS: propranolol 10mg tablet PO SCH ×3 (08:12→20:20)
[2019-11-03] MEDS: nicotine 14mg patch - 24hr TD SCH (08:14)
[2019-11-03] MEDS: clozapine 100mg tablet PO SCH ×2 (13:04→20:19)
[2019-11-03] MEDS: lurasidone 60mg tablet PO SCH (13:04)
[2019-11-03] MEDS: clozapine 25mg tablet PO SCH ×2 (13:04→20:19)
--- NOTE | 2019-11-03 15:26 | NUR ---
Nursing Progress Note: Legal hold: LPS Client on involuntary status for GD Report received from nurse with use of SBAR: LUIS FERNANDO Arango Why are they here: Patient had been discharged previously with follow up at [facility] Team. Upon assessment by the [facility] [place], it was determined patient was not able to obtain, food, [facility]cc, or clothing and a 5150 for GD was written. Patient returned within hours of discharge. At time of return patient denied any symptoms related to his mental illness diagnosis of Schizophrenia. He continues to present with cognitive impairment which impedes his ability to care of himself, and requires multiple supports and external structures. Assessment What has happened this shift: Pt was up for breakfast, pleasant and cooperative with medications and care, states that he feels "pretty good." Pt denied voices this morning but admits that he hears them "at the end of the day but not now." pt has an EKG scheduled for tomorrow. Pt is aware of weight gain but will still ask for extra food or report that he did not have a snack when he already had one to get seconds. S/I, H/I: Pt denies A/VH: Pt denies, admits to AH "at the end of the day." Sleep: Pt slept 6.5 hours per noc shift report. ADL's: Independent Group attendance: Yes Were meds taken: Yes Any med S/E: None noted or reported. Mental Status Exam Appearance: Large, overweight young man with short dark hair and facial acne dressed in street clothes. Eye contact: Good Behavior: Pleasant, cooperative, friendly, child-like. Speech: Clear, audible, minimal. Mood: "Pretty good." Affect: Bright Thought process: Linear Thought Content: Focuses on food, also thoughts of potential discharge, knows he's on the waiting list for [facility] but also knows that they are looking into other places. Cognition: A/O X4 Insight: Poor Judgment: Poor to fair Interventions PRN's used: None Therapeutic interventions: 1:1 assessment, encouragement to express thoughts and feelings, active listening, therapeutic conversation, positive reinforcement, behavior monitoring, medication administration/education/monitoring, Q 15 min safety checks. Restraints/seclusion/emergency medication: N/A Justification of Continued Inpatient Treatment: Pt. continues to require a safe and supportive environment, and remains GD r/t mental health. He is LPS conserved and awaiting placement. Addendum: 11/03/19 at 1701 by Elisabet Pfeiffer" RN Pt approached this RN to ask for an Ativan, reported that he was hearing and seeing things, people telling him what to do. Asked pt to elaborate, he said that he is seeing faces in the jacobson, the voices are telling him to do things like, "look this way" or "tap the table." Pt also reports that something is messing with his "methodist," like with his luck at cards and games. Medicated with Ativan 1 mg @ 1655, positive reinforcement provided for letting this RN know what was going on and asking for a prn.
[2019-11-03] MEDS: LORazepam 1 MG tablet PO PRN (16:55)
[2019-11-03] MEDS: atorvastatin 10mg tablet PO SCH (20:19)
[2019-11-03 20:54] VITALS: BP 137/84
--- NOTE | 2019-11-04 01:03 | NUR ---
Nursing Progress Note: Legal hold: LPS Client on involuntary status for GD Report received from nurse with use of SBAR: LUIS FERNANDO Martinez Why are they here: Patient had been discharged previously with follow up at [facility] Team. Upon assessment by the [facility] [place], it was determined patient was not able to obtain, food, longterm, or clothing and a 5150 for GD was written. Patient returned within hours of discharge. At time of return patient denied any symptoms related to his mental illness diagnosis of Schizophrenia. He continues to present with cognitive impairment which impedes his ability to care of himself, and requires multiple supports and external structures. Assessment What has happened this shift: Pt paces the unit smiling and laughing at shift change. He is cooperative with 1:1 assessment and medication compliant. Pt does not report any SE, but his HR is still running high, 125. Pt is asymptomatic. He reports he is "feeling good" and denies AH/VH although he is seen responding to internal stimuli at times. He denies SI/HI. S/I, H/I: Denies A/VH: Pt. denies any A/V/THOMAS Sleep: see sleep assessment notation ADL's: Requires some prompting and direction from staff at times Group attendance: Pt reports he attended groups today and participated Were meds taken: Yes Any med S/E: None Mental Status Exam Appearance: Presents as neat, dressed in own clothing Eye contact: Good Behavior: Cooperative and slightly guarded Speech: Soft and animated, child-like. Responds only minimally to questions. Mood: Pleasant Affect: Animated Thought process: Poverty of thought Thought Content: Continued preoccupation with desire to discharge Cognition: A&O X4 Insight: Poor Judgment: Poor to fair Interventions PRN's used:none Therapeutic interventions: Ensured contract for safety, maintained a safe and therapeutic environment, provided clear and simple instructions, monitored behaviors and need for intervention, provided positive encouragement, encouraged independent performance of ADLs, and maintained Q 15 min safety checks. Restraints/seclusion/emergency medication: N/A Justification of Continued Inpatient Treatment: Pt. continues to require a safe and supportive environment, and remains GD r/t mental health. He is LPS conserved and awaiting placement.
[2019-11-04 07:12] LABS: BASOPHILS # (AUTO) 0.1 X10'3 (0-0.2); BASOPHILS % (AUTO) 0.6 % (0-1); EOSINOPHILS # (AUTO) 0.2 X10'3 (0-0.9); EOSINOPHILS % (AUTO) 2.1 % (0-6); HEMATOCRIT 43.7 % (42.0-52.0); HEMOGLOBIN 14.7 g/dl (14.0-17.9); LYMPHOCYTES # (AUTO) 2.2 X10'3 (1.1-4.8); MEAN CORPUSCULAR HEMOGLOBIN 27.8 PG (27.0-31.0); MEAN CORPUSCULAR HGB CONC 33.6 g/dL (33.0-36.5); MEAN PLATELET VOLUME 8.2 FL (7.4-10.4); MONOCYTES # (AUTO) 0.8 X10'3 (0-0.9); MONOCYTES % (AUTO) 9.5 % (2-12); NEUTROPHILS % (AUTO) 60.8 % (42-75); PLATELET COUNT 191 X10'3 (140-440); RED BLOOD COUNT 5.26 X10'6 (4.70-6.10); RED CELL DISTRIBUTION WIDTH 14.9 % (11.5-14.5); WHITE BLOOD COUNT 8.3 X10'3 (4.5-11.0)
[2019-11-04 07:21] VITALS: BP 123/61
[2019-11-04] MEDS: DOXYCYCLINE 100MG CAPSULE PO SCH (08:07)
[2019-11-04] MEDS: propranolol 10mg tablet PO SCH ×3 (08:08→20:41)
[2019-11-04] MEDS: pantoprazole 40mg Tablet.DR PO SCH (08:08)
[2019-11-04] MEDS: sennosides 8.6mg tablet PO SCH ×2 (08:08→20:41)
[2019-11-04] MEDS: docusate sod 100mg capsule PO SCH ×2 (08:08→20:41)
[2019-11-04] MEDS: nicotine 14mg patch - 24hr TD SCH (08:09)
[2019-11-04 12:23] VITALS: BP 136/81
[2019-11-04] MEDS: clozapine 100mg tablet PO SCH ×2 (13:28→20:40)
[2019-11-04] MEDS: lurasidone 60mg tablet PO SCH (13:28)
[2019-11-04] MEDS: clozapine 25mg tablet PO SCH (13:28)
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
[2019-11-04] MEDS: NICOTINE POLACRILEX 2 MG LOZENGE BC PRN ×2 (18:03→19:42)
[2019-11-04 19:30] VITALS: BP 139/82
[2019-11-04] MEDS: atorvastatin 10mg tablet PO SCH (20:40)
--- NOTE | 2019-11-04 23:23 | NUR ---
Nursing Progress Note: Legal hold: LPS Client on involuntary status for GD Report received from nurse with use of SBAR: LUIS FERNANDO Martinez Why are they here: Patient had been discharged previously with follow up at [facility] Team. Upon assessment by the [facility], it was determined patient was not able to obtain, food, half-way, or clothing and a 5150 for GD was written. Patient returned within hours of discharge. At time of return patient denied any symptoms related to his mental illness diagnosis of Schizophrenia. He continues to present with cognitive impairment which impedes his ability to care of himself, and requires multiple supports and external structures. Assessment What has happened this shift: Pt lying in bed at shift change, he is in a pleasant mood and cooperative with 1:1 assessment. Sole Splitter asks how his day went, and he responds, well I am doing pretty good! He charges his ankle monitor and watches TV happily. He denies SI/HI. S/I, H/I: Denies A/VH: Pt. denies any A/V/THOMAS Sleep: see sleep assessment notation ADL's: Requires some prompting and direction from staff at times Group attendance: Pt reports he attended groups today and participated Were meds taken: Yes Any med S/E: None Mental Status Exam Appearance: Presents as neat, dressed in own clothing Eye contact: Good Behavior: Cooperative and slightly guarded Speech: Soft and animated, child-like. Responds only minimally to questions. Mood: Pleasant Affect: Animated Thought process: Poverty of thought Thought Content: Continued preoccupation with desire to discharge Cognition: A&O X4 Insight: Poor Judgment: Poor to fair Interventions PRN's used:none Therapeutic interventions: Ensured contract for safety, maintained a safe and therapeutic environment, provided clear and simple instructions, monitored behaviors and need for intervention, provided positive encouragement, encouraged independent performance of ADLs, and maintained Q 15 min safety checks. Restraints/seclusion/emergency medication: N/A Justification of Continued Inpatient Treatment: Pt. continues to require a safe and supportive environment, and remains GD r/t mental health. He is LPS conserved and awaiting placement.
[2019-11-05] MEDS: pantoprazole 40mg Tablet.DR PO SCH (07:34)
[2019-11-05] MEDS: propranolol 10mg tablet PO SCH ×3 (07:34→20:10)
[2019-11-05] MEDS: docusate sod 100mg capsule PO SCH ×2 (07:34→20:11)
[2019-11-05] MEDS: sennosides 8.6mg tablet PO SCH ×2 (07:34→20:10)
[2019-11-05] MEDS: nicotine 14mg patch - 24hr TD SCH (07:36)
[2019-11-05 08:00] VITALS: BP 105/60
[2019-11-05] MEDS: lurasidone 20mg tablet PO SCH (12:04)
[2019-11-05] MEDS: clozapine 100mg tablet PO SCH ×2 (13:39→20:11)
[2019-11-05] MEDS: clozapine 25mg tablet PO SCH (13:41)
--- NOTE | 2019-11-05 16:48 | NUR ---
Nursing Progress Note: Sharp Legal hold: LPS Client on involuntary status for GD Report received from material handler 2nd shift RN Why are they here: Patient had been discharged previously with follow up at [facility] Team. Upon assessment by the [facility] [place], it was determined patient was not able to obtain, food, penitentiary, or clothing and a 5150 for GD was written. Patient returned within hours of discharge. At time of return patient denied any symptoms related to his mental illness diagnosis of Schizophrenia. He continues to present with cognitive impairment which impedes his ability to care of himself, and requires multiple supports and external structures. Assessment What has happened this shift: Client is amicable with all aspects of care. He was social on unit with both staff as well as peers. Client took his medications and has had no behavioral issues this shift. Client was active on unit until 1620 when he went to his room to rest. S/I, H/I: Denies A/VH: Pt. denies any A/V/THOMAS Sleep: 3.5 last shift and rested today during shift. ADL's: Requires some prompting and direction from staff at times Group attendance: no Were meds taken: Yes Any med S/E: None Mental Status Exam Appearance: Presents as neat, dressed in own clothing Eye contact: Good Behavior: Cooperative and slightly guarded Speech: Soft and animated, child-like. Responds only minimally to questions. Mood: Pleasant Affect: Animated Thought process: Poverty of thought Thought Content: Continued preoccupation with desire to discharge Cognition: A&O X4 Insight: Poor Judgment: Poor to fair Interventions PRN's used:none Therapeutic interventions: Ensured contract for safety, maintained a safe and therapeutic environment, provided clear and simple instructions, monitored behaviors and need for intervention, provided positive encouragement, encouraged independent performance of ADLs, and maintained Q 15 min safety checks. Restraints/seclusion/emergency medication: N/A Justification of Continued Inpatient Treatment: Pt. continues to require a safe and supportive environment, and remains GD r/t mental health. He is LPS conserved and awaiting placement.
[2019-11-05 19:29] VITALS: BP 138/85
[2019-11-05] MEDS: atorvastatin 10mg tablet PO SCH (20:10)
--- NOTE | 2019-11-05 21:27 | NUR ---
Nursing Progress Note: Legal hold: LPS Client on involuntary status for GD Report received from nurse with use of SBAR: LUIS FERNANDO Martinez Why are they here: Patient had been discharged previously with follow up at [facility] Team. Upon assessment by the [facility], it was determined patient was not able to obtain, food, usp, or clothing and a 5150 for GD was written. Patient returned within hours of discharge. At time of return patient denied any symptoms related to his mental illness diagnosis of Schizophrenia. He continues to present with cognitive impairment which impedes his ability to care of himself, and requires multiple supports and external structures. Assessment What has happened this shift: Pt see walking the halls at change of shift. Pt was seen talking to himself at various times during the evening. Pt later endorsed both auditory and visual hallucinations during 1:1. Pt described his vh as "someone trying to distract me when I'm playing a game or watching tv." He was pleasant with both staff and other pt's. pt reports feeling excited about moving to [facility] but also stated that he "likes it here too though." He denies SI. S/I, H/I: Denies A/VH: endorses both Sleep: see sleep assessment ADL's: Requires some prompting and direction from staff at times Group attendance: Pt reports he attended groups today and participated Were meds taken: Yes Any med S/E: None Mental Status Exam Appearance: Presents as neat, dressed in own clothing Eye contact: Good Behavior: Cooperative and slightly guarded Speech: Soft and animated, child-like. Responds only minimally to questions. Mood: Pleasant Affect: Animated Thought process: Poverty of thought Thought Content: Continued preoccupation with desire to discharge Cognition: A&O X4 Insight: Poor Judgment: Poor to fair Interventions PRN's used:none Therapeutic interventions: Ensured contract for safety, maintained a safe and therapeutic environment, provided clear and simple instructions, monitored behaviors and need for intervention, provided positive encouragement, encouraged independent performance of ADLs, and maintained Q 15 min safety checks. Restraints/seclusion/emergency medication: N/A Justification of Continued Inpatient Treatment: Pt. continues to require a safe and supportive environment, and remains GD r/t mental health. He is LPS conserved and awaiting placement.
[2019-11-05] MEDS: LORazepam 1 MG tablet PO PRN (21:52)
[2019-11-05 21:59] VITALS: BP 134/88
[2019-11-06 08:00] VITALS: BP 96/57
[2019-11-06] MEDS: propranolol 10mg tablet PO SCH ×4 (08:00→20:01)
[2019-11-06] MEDS: sennosides 8.6mg tablet PO SCH ×2 (08:08→20:01)
[2019-11-06] MEDS: docusate sod 100mg capsule PO SCH ×2 (08:08→20:01)
[2019-11-06] MEDS: pantoprazole 40mg Tablet.DR PO SCH (08:08)
[2019-11-06] MEDS: nicotine 14mg patch - 24hr TD SCH (08:11)
[2019-11-06 12:21] VITALS: BP 122/76
[2019-11-06] MEDS: lurasidone 20mg tablet PO SCH (13:11)
[2019-11-06] MEDS: clozapine 25mg tablet PO SCH (13:11)
[2019-11-06] MEDS: clozapine 100mg tablet PO SCH ×2 (13:11→20:01)
[2019-11-06] MEDS: NICOTINE POLACRILEX 2 MG LOZENGE BC PRN (18:06)
--- NOTE | 2019-11-06 18:19 | NUR ---
Nursing Progress Note: Legal hold: LPS Client on involuntary status for GD Report received from nurse with use of SBAR: LUIS FERNANDO Martinez Why are they here: Patient had been discharged previously with follow up at [facility] Team. Upon assessment by the [facility], it was determined patient was not able to obtain, food, long term, or clothing and a 5150 for GD was written. Patient returned within hours of discharge. At time of return patient denied any symptoms related to his mental illness diagnosis of Schizophrenia. He continues to present with cognitive impairment which impedes his ability to care of himself, and requires multiple supports and external structures. Assessment What has happened this shift: Pt presented as more guarded and quiet than usual today. Pt asks to use the hallway bathroom as roommate frequently pees all over the toilet. Held morning propranolol as pt's BP was 96/57. Pt refused 1300 propranolol stating, "I'm not going to take the orange one anymore because it drops my heart rate and makes me feel like I can't breathe at night." Education provided on tachycardia, his HR was 112 and that the propranolol would help to bring it down. Pt adamant that he does not want to take the med. Pt asked for a prn Nicotine lozenge after dinner. S/I, H/I: Pt denies A/VH: Pt denies Sleep: Pt slept 7.75 hours per noc shift report. ADL's: Independent with encouragement Group attendance: Yes Were meds taken: Yes, though refused 1300 propranolol dose. Any med S/E: Pt reports that propranolol makes him feel short of breath. Mental Status Exam Appearance: Neat, clean Eye contact: Good Behavior: Cooperative and slightly guarded Speech: Clear, audible, minimal today. Mood: Quiet Affect: Blunted, constricted Thought process: Linear Thought Content: Not going to take propranolol anymore. Cognition: A/O X4 Insight: Poor Judgment: Poor to fair Interventions PRN's used:none Therapeutic interventions: 1:1 assessment, encouragement to express thoughts and feelings, medication administration/education/monitoring, Q 15 min safety checks. Restraints/seclusion/emergency medication: N/A Justification of Continued Inpatient Treatment: Pt. continues to require a safe and supportive environment, and remains GD r/t mental health. He is LPS conserved and awaiting placement.
[2019-11-06] MEDS: atorvastatin 10mg tablet PO SCH (20:02)
[2019-11-06 20:32] VITALS: BP 125/83
[2019-11-06] MEDS: LORazepam 1 MG tablet PO PRN (20:36)
--- NOTE | 2019-11-06 21:18 | NUR ---
Nursing Progress Note: Legal hold: LPS Client on involuntary status for GD Report received from nurse with use of SBAR: LUIS FERNANDO Martinez Why are they here: Patient had been discharged previously with follow up at [facility] Team. Upon assessment by the [facility] [place], it was determined patient was not able to obtain, food, intermediate, or clothing and a 5150 for GD was written. Patient returned within hours of discharge. At time of return patient denied any symptoms related to his mental illness diagnosis of Schizophrenia. He continues to present with cognitive impairment which impedes his ability to care of himself, and requires multiple supports and external structures. Assessment What has happened this shift: Pt see walking the halls at change of shift. Pt did not appear to be responding to internal stimuli. Pt did report feeling a little anxious and asked for an ativan before going to bed. pt continues to be friendly, cooperative and amicable to assessments and accepts meds without issue. He endorsed av/h and denies SI. S/I, H/I: Denies A/VH: endorses both Sleep: see sleep assessment ADL's: Requires some prompting Group attendance: snack Were meds taken: Yes Any med S/E: None Mental Status Exam Appearance: Presents as neat, dressed in own mildly dirty clothes Eye contact: Good Behavior: Cooperative Speech: Responds only minimally to questions. Mood: Pleasant Affect: Animated Thought process: Poverty of thought Thought Content: Continued preoccupation with desire to discharge Cognition: A&O X4 Insight: Poor Judgment: Poor to fair Interventions PRN's used:none Therapeutic interventions: Ensured contract for safety, maintained a safe and therapeutic environment, provided clear and simple instructions, monitored behaviors and need for intervention, provided positive encouragement, encouraged independent performance of ADLs, and maintained Q 15 min safety checks. Restraints/seclusion/emergency medication: N/A Justification of Continued Inpatient Treatment: Pt. continues to require a safe and supportive environment, and remains GD r/t mental health. He is LPS conserved and awaiting placement.
[2019-11-07] MEDS: nicotine 14mg patch - 24hr TD SCH (07:38)
[2019-11-07] MEDS: sennosides 8.6mg tablet PO SCH ×2 (07:38→20:11)
[2019-11-07] MEDS: propranolol 10mg tablet PO SCH ×3 (07:38→20:11)
[2019-11-07] MEDS: pantoprazole 40mg Tablet.DR PO SCH (07:39)
[2019-11-07] MEDS: docusate sod 100mg capsule PO SCH ×2 (07:39→20:11)
[2019-11-07 08:00] VITALS: BP 107/52
[2019-11-07] MEDS: lurasidone 20mg tablet PO SCH (12:45)
[2019-11-07] MEDS: clozapine 25mg tablet PO SCH (13:48)
[2019-11-07] MEDS: clozapine 100mg tablet PO SCH ×2 (13:48→20:12)
[2019-11-07] MEDS: olanzapine 10mg tablet PO PRN (18:19)
[2019-11-07 19:59] VITALS: BP 126/84
[2019-11-07] MEDS: atorvastatin 10mg tablet PO SCH (20:12)
[2019-11-07] MEDS: LORazepam 1 MG tablet PO PRN (21:57)
--- NOTE | 2019-11-07 23:04 | NUR ---
Nursing Progress Note: Legal hold: LPS Client on involuntary status for GD Report received from nurse with use of SBAR: LUIS FERNANDO Martinez Why are they here: Patient had been discharged previously with follow up at [facility]. Upon assessment by the [facility], it was determined patient was not able to obtain, food, halfway, or clothing and a 5150 for GD was written. Patient returned within hours of discharge. At time of return patient denied any symptoms related to his mental illness diagnosis of Schizophrenia. He continues to present with cognitive impairment which impedes his ability to care of himself, and requires multiple supports and external structures. Assessment What has happened this shift: Pt see walking the halls at change of shift. Pt did not appear to be responding to internal stimuli. Pt asked for an ativan before going to bed. pt continues to be friendly, cooperative and amicable to assessments and accepts meds without issue. He denies a/vh this evening and pt did appear to be less anxious than previous evening. S/I, H/I: Denies A/VH: denies Sleep: see sleep assessment ADL's: Requires some prompting Group attendance: snack Were meds taken: Yes Any med S/E: None Mental Status Exam Appearance: in own clothes Eye contact: Good Behavior: Cooperative, social Speech: Responds only minimally to questions, but normal rate Mood: Pleasant Affect: Animated Thought process: Poverty of thought Thought Content: Continued preoccupation with desire to discharge Cognition: A&O X4 Insight: Poor Judgment: Poor to fair Interventions PRN's used:none Therapeutic interventions: Ensured contract for safety, maintained a safe and therapeutic environment, provided clear and simple instructions, monitored behaviors and need for intervention, provided positive encouragement, encouraged independent performance of ADLs, and maintained Q 15 min safety checks. Restraints/seclusion/emergency medication: N/A Justification of Continued Inpatient Treatment: Pt. continues to require a safe and supportive environment, and remains GD r/t mental health. He is LPS conserved and awaiting placement.
[2019-11-08] MEDS: NICOTINE POLACRILEX 2 MG LOZENGE BC PRN ×2 (07:01→17:39)
[2019-11-08] MEDS: pantoprazole 40mg Tablet.DR PO SCH (07:21)
[2019-11-08] MEDS: sennosides 8.6mg tablet PO SCH ×2 (07:21→20:19)
[2019-11-08] MEDS: nicotine 14mg patch - 24hr TD SCH (07:21)
[2019-11-08] MEDS: docusate sod 100mg capsule PO SCH ×2 (07:21→20:18)
[2019-11-08] MEDS: propranolol 10mg tablet PO SCH ×3 (07:21→20:19)
[2019-11-08 07:45] VITALS: BP 123/73
--- NOTE | 2019-11-08 08:31 | NUR ---
Reassessment: Pt PO 75-100% heart healthy diet meeting needs. LBM 3/3 receiving colace and senna. Weight has been stable for a month. Per documented weight history has gained 40.48 lbs using bedscale and standing. Has been eating well since admission, good appetite. Will continue to monitor. Rec: 1. continue heart healthy diet 2. Double eggs q breakfast, double meat BIDLD; extra fruits/vegetables on meal trays; salad BIDLD all per diet order 3. anti-hyperlipidemic per MD approval; TG 204 4. routine bowel care; monitor need for additional 5. wt per rx Addendum: 11/08/19 at [address] Amended: Links added.
[2019-11-08] MEDS: lurasidone 20mg tablet PO SCH (12:15)
[2019-11-08] MEDS: clozapine 25mg tablet PO SCH (13:10)
[2019-11-08] MEDS: clozapine 100mg tablet PO SCH ×2 (13:10→20:21)
--- NOTE | 2019-11-08 16:05 | NUR ---
Nursing Progress Note: [employer] Legal hold: LPS Client on involuntary status for GD Report received from Yolanda CARMEN Why are they here: Patient had been discharged previously with follow up at [facility] determined patient was not able to obtain, food, halfway, or clothing and a 5150 for GD was written. Patient returned within hours of discharge. At time of return patient denied any symptoms related to his mental illness diagnosis of Schizophrenia. He continues to present with cognitive impairment which impedes his ability to care of himself, and requires multiple supports and external structures. Assessment: What has happened this shift: Client was in bed to begin the shift resting with eyes closed. Client amicable to all aspects of his care and was compliant with am medications and assessment. Client came for breakfast and then returned to his room to rest. He remains in his room resting as of this writing at 0918 hours. Client woke for lunch and participated in afternoon group activities. Client behaviors have been appropriate for unit today and he is looking forward to his next placement. Client has rested off and on this afternoon and did shower earlier in this shift. S/I, H/I: Denies A/VH: denies Sleep: 6.75 ADL's: Requires some prompting Group attendance: yes Were meds taken: Yes Any med S/E: None Mental Status Exam Appearance: in own clothes Eye contact: Good Behavior: Cooperative, social Speech: Responds only minimally to questions, but normal rate Mood: Pleasant Affect: Animated Thought process: Poverty of thought Thought Content: Continued preoccupation with desire to discharge Cognition: A&O X4 Insight: Poor Judgment: Poor to fair Interventions PRN's used:none Therapeutic interventions: Ensured contract for safety, maintained a safe and therapeutic environment, provided clear and simple instructions, monitored behaviors and need for intervention, provided positive encouragement, encouraged independent performance of ADLs, and maintained Q 15 min safety checks. Restraints/seclusion/emergency medication: N/A Justification of Continued Inpatient Treatment: Pt. continues to require a safe and supportive environment, and remains GD r/t mental health. He is LPS conserved and awaiting placement.
[2019-11-08 20:00] VITALS: BP 124/84
[2019-11-08] MEDS: atorvastatin 10mg tablet PO SCH (20:19)
--- NOTE | 2019-11-08 21:08 | NUR ---
Nursing Progress Note: [employer] Legal hold: LPS Client on involuntary status for GD Report received from Naga CARMEN Why are they here: Patient had been discharged previously with follow up at [facility] Team. Upon assessment by the [facility], it was determined patient was not able to obtain, food, fdc, or clothing and a 5150 for GD was written. Patient returned within hours of discharge. At time of return patient denied any symptoms related to his mental illness diagnosis of Schizophrenia. He continues to present with cognitive impairment which impedes his ability to care of himself, and requires multiple supports and external structures. Assessment: What has happened this shift: Client was in rec room to begin the shift watching tv. Client amicable to all aspects of his care and was compliant with medications and assessment. He has been appropriate for unit today and he is looking forward to his next placement. S/I, H/I: Denies A/VH: denies Sleep: 6.75 ADL's: Requires some prompting Group attendance: yes Were meds taken: Yes Any med S/E: None Mental Status Exam Appearance: in own clothes Eye contact: Good Behavior: Cooperative, social Speech: Responds only minimally to questions, but normal rate Mood: Pleasant Affect: Animated Thought process: Poverty of thought Thought Content: Continued preoccupation with desire to discharge Cognition: A&O X4 Insight: Poor Judgment: Poor to fair Interventions PRN's used:none Therapeutic interventions: Ensured contract for safety, maintained a safe and therapeutic environment, provided clear and simple instructions, monitored behaviors and need for intervention, provided positive encouragement, encouraged independent performance of ADLs, and maintained Q 15 min safety checks. Restraints/seclusion/emergency medication: N/A Justification of Continued Inpatient Treatment: Pt. continues to require a safe and supportive environment, and remains GD r/t mental health. He is LPS conserved and awaiting placement.
[2019-11-09 07:51] VITALS: BP 101/59
[2019-11-09] MEDS: sennosides 8.6mg tablet PO SCH ×2 (07:52→20:15)
[2019-11-09] MEDS: pantoprazole 40mg Tablet.DR PO SCH (07:52)
[2019-11-09] MEDS: docusate sod 100mg capsule PO SCH ×2 (07:52→20:14)
[2019-11-09] MEDS: propranolol 10mg tablet PO SCH ×3 (07:52→20:14)
[2019-11-09] MEDS: nicotine 14mg patch - 24hr TD SCH (07:55)
[2019-11-09] MEDS: lurasidone 20mg tablet PO SCH (12:55)
[2019-11-09] MEDS: clozapine 100mg tablet PO SCH ×2 (14:55→20:15)
[2019-11-09] MEDS: clozapine 25mg tablet PO SCH (14:57)
--- NOTE | 2019-11-09 17:00 | NUR ---
Nursing Progress Note: [employer] Legal hold: LPS Client on involuntary status for GD Report received from Yolanda CARMEN Why are they here: Patient had been discharged previously with follow up at [facility] Team. Upon assessment by the [facility], it was determined patient was not able to obtain, food, fdc, or clothing and a 5150 for GD was written. Patient returned within hours of discharge. At time of return patient denied any symptoms related to his mental illness diagnosis of Schizophrenia. He continues to present with cognitive impairment which impedes his ability to care of himself, and requires multiple supports and external structures. Assessment: What has happened this shift: Pt. asleep at start of shift. Pt. awoken for medications. Pt. took all meds and ate all meals in community room. Pt. requesting more food. RN informed pt. of need to watch caloric intake. 1:1 done at bedside. Pt. denies SI/HI, A/V hallucinations. Pt. is polite and cooperative. Pt. seen pacing halls and socializing with peers and staff. Seen smiling and laughing often. In afternoon pt. talking to himself more loudly and becoming more animated. RN asked pt. if he needed PRN, pt. denied. Pt. calmed down after afternoon dose of Clozaril. S/I, H/I: Denies A/VH: denies Sleep: Pt napped for 1 hour in AM. ADL's: Independent. Group attendance: yes Were meds taken: yes Any med S/E: None Mental Status Exam Appearance: in own clothes Eye contact: Good Behavior: Cooperative, social Speech: Responds only minimally to questions, but normal rate and rhythm Mood: euthymic Affect: Animated Thought process: Poverty of thought Thought Content: Happy about his new clothes. Cognition: A&O X4 Insight: Poor Judgment: Poor Interventions PRN's used: none Therapeutic interventions: Ensured contract for safety, maintained a safe and therapeutic environment, provided clear and simple instructions, monitored behaviors and need for intervention, provided positive encouragement, encouraged independent performance of ADLs, and maintained Q 15 min safety checks. Restraints/seclusion/emergency medication: N/A Justification of Continued Inpatient Treatment: Pt. continues to require a safe and supportive environment, and remains GD r/t mental health. He is LPS conserved and awaiting placement.
[2019-11-09] MEDS: NICOTINE POLACRILEX 2 MG LOZENGE BC PRN (19:38)
[2019-11-09] MEDS: hydrOXYzine 25 MG tablet PO PRN (19:38)
[2019-11-09 20:00] VITALS: BP 151/94
[2019-11-09] MEDS: atorvastatin 10mg tablet PO SCH (20:14)
[2019-11-09] MEDS: LORazepam 1 MG tablet PO PRN (22:18)
--- NOTE | 2019-11-10 00:14 | NUR ---
Nursing Progress Note: Legal hold: LPS Client on involuntary status for GD Report received from nurse with use of SBAR: LUIS FERNANDO Fox Why are they here: Patient had been discharged previously with follow up at [facility] Team. Upon assessment by the [facility], it was determined patient was not able to obtain, food, assisted, or clothing and a 5150 for GD was written. Patient returned within hours of discharge. At time of return patient denied any symptoms related to his mental illness diagnosis of Schizophrenia. He continues to present with cognitive impairment which impedes his ability to care of himself, and requires multiple supports and external structures. Assessment What has happened this shift: Pt. up watching TV in Recreation Room at the beginning of the shift, he is dressed nicely in street clothes and wearing a base ball cap. Pt. greets this radio news writer and and requests a PRN anxiolytic, states, "I feel anxious, like I want to leave," PRN Atrax administered with some effectiveness. 1:1 completed, pt. continues to present as slightly anxious and restless, however is pleasant and cooperative. He continues to deny any mental health s/s and no delusional statements made. When questioned by this radio news writer regarding any further news on placement, pt. states, "Bobby Bowen requested more information about me. I'm excited to go see the palm trees!" At HS, pt. is pacing in the halls and talking aloud to himself occasionally, he requests PRN Ativan for anxiety, administered with effectiveness. Pt. appears to be resting comfortably at this time, will continue to monitor. S/I, H/I: Denies A/VH: Pt. denies, however at HS is observed to be talking aloud to himself occasionally Sleep: Pt. appears to be sleeping well, will monitor ADL's: Requires some prompting and direction from staff at times Group attendance: Pt reports he attends groups Were meds taken: Yes Any med S/E: None Mental Status Exam Appearance: Presents as neat, and dressed nicely in street clothes and wearing a base ball cap Eye contact: Good Behavior: Cooperative, restless, anxious, and slightly guarded Speech: Soft and animated, child-like. Responds minimally to questions Mood: Pleasant Affect: Blunted Thought process: Poverty of thought Thought Content: Continued preoccupation with desire to discharge and possible A/V/THOMAS AEB talking aloud to himself at times. Cognition: A&O X4 Insight: Poor Judgment: Poor to fair Interventions PRN's used: Nicotine Lozenge, Atrax, and Ativan Therapeutic interventions: Ensured contract for safety, maintained a safe and therapeutic environment, provided clear and simple instructions, monitored behaviors and need for intervention, provided active listening, encouraged independent performance of ADLs, and maintained Q 15 min safety checks. Restraints/seclusion/emergency medication: N/A Justification of Continued Inpatient Treatment: Pt. continues to require a safe and supportive environment, and remains GD r/t mental health. He is LPS conserved and awaiting placement.
[2019-11-10 08:00] VITALS: BP 119/90
[2019-11-10] MEDS: pantoprazole 40mg Tablet.DR PO SCH (08:09)
[2019-11-10] MEDS: sennosides 8.6mg tablet PO SCH ×2 (08:09→20:04)
[2019-11-10] MEDS: docusate sod 100mg capsule PO SCH ×2 (08:09→20:04)
[2019-11-10] MEDS: nicotine 14mg patch - 24hr TD SCH (08:12)
[2019-11-10] MEDS: propranolol 10mg tablet PO SCH ×3 (08:56→20:06)
[2019-11-10] MEDS: LORazepam 1 MG tablet PO PRN ×2 (10:39→21:36)
[2019-11-10] MEDS: lurasidone 20mg tablet PO SCH (13:09)
[2019-11-10] MEDS: clozapine 25mg tablet PO SCH (14:24)
[2019-11-10] MEDS: clozapine 100mg tablet PO SCH ×2 (14:24→20:05)
--- NOTE | 2019-11-10 17:36 | NUR ---
Nursing Progress Note: Legal hold: LPS Client on involuntary status for GD Report received from RNCatalina Why are they here: Patient had been discharged previously with follow up at [facility] Team. Upon assessment by the [facility], it was determined patient was not able to obtain, food, retirement, or clothing and a 5150 for GD was written. Patient returned within hours of discharge. At time of return patient denied any symptoms related to his mental illness diagnosis of Schizophrenia. He continues to present with cognitive impairment which impedes his ability to care of himself, and requires multiple supports and external structures. Assessment: What has happened this shift: Pt. asleep at start of shift. Pt. awoken for medications. Pt. took all meds and ate all meals in community room. 1:1 done at bedside. Pt. denies SI/HI. Pt. reports hearing command auditory hallucinations telling him to drink his water after he already drank it. RN offerred PRN medication and pt. given ativan 1mg with good effect. Pt. is calm and cooperative. Pt. seen pacing halls and socializing with peers and staff. Pt. watching TV with peers. S/I, H/I: Denies A/VH: Denies Sleep: Pt. napped x1 this AM. ADL's: Independent. Group attendance: yes Were meds taken: yes Any med S/E: None Mental Status Exam Appearance: Clean and neat, dressed in street clothes. Eye contact: Good Behavior: Cooperative, social Speech: Responds only minimally to questions, but normal rate and rhythm Mood: euthymic with some anxiety at times Affect: congruent with mood Thought process: Poverty of thought Thought Content: Discharge Cognition: A&O X4 Insight: Poor Judgment: Poor Interventions PRN's used: ativan 1mg po Therapeutic interventions: Ensured contract for safety, maintained a safe and therapeutic environment, provided clear and simple instructions, monitored behaviors and need for intervention, provided positive encouragement, encouraged independent performance of ADLs, and maintained Q 15 min safety checks. Restraints/seclusion/emergency medication: N/A Justification of Continued Inpatient Treatment: Pt. continues to require a safe and supportive environment, and remains GD r/t mental health. He is LPS conserved and awaiting placement.
[2019-11-10] MEDS: acetaminophen 325mg tablet PO PRN (18:57)
[2019-11-10 19:20] VITALS: BP 131/68
[2019-11-10] MEDS: benzocaine/menthol oral lozeng 1 EACH BOX MM PRN (20:06)
[2019-11-10] MEDS: atorvastatin 10mg tablet PO SCH (20:06)
--- NOTE | 2019-11-10 22:00 | NUR ---
Administered Chloraseptic Lozenge per pt. request, forgot to scan.
--- NOTE | 2019-11-10 23:29 | NUR ---
Nursing Progress Note: Legal hold: LPS Client on involuntary status for GD Report received from nurse with use of SBAR: LUIS FERNANDO Nielson Why are they here: Patient had been discharged previously with follow up at [facility] Team. Upon assessment by the [facility], it was determined patient was not able to obtain, food, half-way, or clothing and a 5150 for GD was written. Patient returned within hours of discharge. At time of return patient denied any symptoms related to his mental illness diagnosis of Schizophrenia. He continues to present with cognitive impairment which impedes his ability to care of himself, and requires multiple supports and external structures. Assessment What has happened this shift: Pt. up watching TV in Recreation Room at the beginning of the shift, interacting appropriately with others. Pt. greets this tag writer and and requests PRN Tylenol for a h/a, administered with some effectiveness. He also c/o a slight non-productive cough and some congestion. Lung sounds clear, V/S WNL, and no c/o SOB, PA Mitch notified, and obtained order for Chloraseptic Lozenges PRN, will continue to monitor. 1:1 completed, pt. continues to deny any mental health s/s and no delusional statements made. When questioned by this tag writer regarding groups, pt. states, "We went outside today and played games, it was fun!" He does not make any statements regarding wanting to leave the unit this shift, and no s/s of response to internal stimuli observed. Pt. does request a PRN anxiolytic at HS, Ativan administered with effectiveness. Pt. appears to be resting comfortably, will continue to monitor. S/I, H/I: Denies A/VH: Pt. denies, no s/s of response to internal stimuli Sleep: Pt. appears to be sleeping well, will monitor ADL's: Requires some prompting and direction from staff at times Group attendance: Pt reports he attended group outside today Were meds taken: Yes Any med S/E: None Mental Status Exam Appearance: Presents as neat, and appropriately dressed Eye contact: Good Behavior: Cooperative, slightly restless and guarded Speech: Soft and animated, child-like. Responds minimally to questions Mood: Pleasant Affect: Blunted Thought process: Poverty of thought Thought Content: WNL Cognition: A&O X4 Insight: Poor Judgment: Poor to fair Interventions PRN's used: Tylenol, Chloraseptic Lozenge, and Ativan Therapeutic interventions: Ensured contract for safety, maintained a safe and therapeutic environment, provided clear and simple instructions, monitored behaviors and need for intervention, provided active listening, encouraged independent performance of ADLs, obtained order for Chloraseptic Lozenges, and maintained Q 15 min safety checks. Restraints/seclusion/emergency medication: N/A Justification of Continued Inpatient Treatment: Pt. continues to require a safe and supportive environment, and remains GD r/t mental health. He is LPS conserved and awaiting placement.
[2019-11-11] MEDS: acetaminophen 325mg tablet PO PRN ×4 (02:18→19:21)
[2019-11-11] MEDS: benzocaine/menthol oral lozeng 1 EACH BOX MM PRN ×4 (02:18→19:21)
--- NOTE | 2019-11-11 02:21 | NUR ---
Pt woke up c/o sore throat and headache. Administered throat lozenge and Tylenol 650mg. Oral temp taken 98.6.
[2019-11-11 08:00] VITALS: BP 93/64
[2019-11-11] MEDS: propranolol 10mg tablet PO SCH ×3 (08:00→21:29)
[2019-11-11] MEDS: docusate sod 100mg capsule PO SCH ×2 (08:43→21:29)
[2019-11-11] MEDS: nicotine 14mg patch - 24hr TD SCH (08:43)
[2019-11-11] MEDS: sennosides 8.6mg tablet PO SCH ×2 (08:43→21:29)
[2019-11-11] MEDS: pantoprazole 40mg Tablet.DR PO SCH (08:44)
[2019-11-11 12:23] LABS: BASOPHILS % (AUTO) 0.5 % (0-1); EOSINOPHILS % (AUTO) 0.6 % (0-6); HEMATOCRIT 44.2 % (42.0-52.0); LYMPHOCYTES # (AUTO) 0.9 X10'3 (1.1-4.8); LYMPHOCYTES % (AUTO) 13.5 % (21-51); MEAN CORPUSCULAR HEMOGLOBIN 27.7 PG (27.0-31.0); MEAN CORPUSCULAR VOLUME 81.4 FL (78-98); MEAN PLATELET VOLUME 8.3 FL (7.4-10.4); MONOCYTES # (AUTO) 1.6 X10'3 (0-0.9); MONOCYTES % (AUTO) 24.3 % (2-12); NEUTROPHILS # (AUTO) 3.9 X10'3 (1.8-7.7); NEUTROPHILS % (AUTO) 61.1 % (42-75); PLATELET COUNT 151 X10'3 (140-440); RED BLOOD COUNT 5.43 X10'6 (4.70-6.10); RED CELL DISTRIBUTION WIDTH 14.9 % (11.5-14.5); WHITE BLOOD COUNT 6.4 X10'3 (4.5-11.0)
--- NOTE | 2019-11-11 13:10 | NUR ---
Per KERMIT Fox, ok for pt to eat in his room today as he has febrile illness.
--- NOTE | 2019-11-11 13:10 | NUR ---
Flu specimen collected and taken to lab per RN
[2019-11-11 13:28] VITALS: BP 137/75
[2019-11-11] MEDS: lurasidone 20mg tablet PO SCH (13:34)
[2019-11-11] MEDS: clozapine 100mg tablet PO SCH ×2 (14:09→21:30)
[2019-11-11] MEDS: clozapine 25mg tablet PO SCH (14:11)
--- NOTE | 2019-11-11 14:37 | NUR ---
Per Lab phone call to this RN, Pt is Influenza A+. #[id number]. KERMIT Fox also notified.
[2019-11-11] MEDS ORDERED: ibuprofen tablet 400 MG TABLET PO PRN (15:30)
[2019-11-11] MEDS ORDERED: oseltamivir phos 75mg capsule PO ONE (16:35)
--- NOTE | 2019-11-11 17:40 | NUR ---
Nursing Progress Note: Legal hold: LPS Client on involuntary status for GD Report received from Conchita GOULD with use of SBAR: Why are they here: Patient had been discharged previously with follow up at [facility] Team. Upon assessment by the [facility], it was determined patient was not able to obtain, food, prison, or clothing and a 5150 for GD was written. Patient returned within hours of discharge. At time of return patient denied any symptoms related to his mental illness diagnosis of Schizophrenia. He continues to present with cognitive impairment which impedes his ability to care of himself, and requires multiple supports and external structures. Assessment What has happened this shift: Pt in bed at beginning of shift. PCT reports pt with fever. Pt reports THOMAS and sore throat. Tylenol and throat lozenge given. Pt attends breakfast and goes back to bed. AM medications given with Inderal held d/t low BP. RN retook BP before afternoon dose and dose given with better BP. Pt encouraged to rest today and stay in his room. Pt later had emesis x1. MIRI Tucker ordered CBC for pt and lab came to draw. Flu swab was odered by ; RN collected and took to lab. Pt remains in room for the day in bed. C/o chills.Tylenol and throat lozenge given again. He has decreased appetite but takes juice and crackers. Meals were taken to him in his room and he ate small amounts of them. Pt remains pleasant and says thank you to staff all day. RN received call from lab that Pt is influenza A positive. CRN notifed. Isolation sign on pt door. Pt roommate then tested for Flu as well. Pt remains pleasant and states his headache is better. He remained in bed. S/I, H/I: Denies A/VH: Denies Sleep: 6.75 per noc shift assessment ADL's: Independant Group attendance: No Were meds taken: Yes Any med S/E: None Mental Status Exam Appearance: PT wearing his own pajams. Resting in bed today Eye contact: Good Behavior: Cooperative, pleasant. Not feeling well. Speech: WNL, soft, muffled d/t sore throat Mood: Pleasant Affect: Calm Thought process: Poverty of thought Thought Content: Doesn't feel well. Cognition: A&O X4 Insight: Poor Judgment: Poor to fair Interventions PRN's used: Tylenol x2, Chloraseptic Lozenges x2 Therapeutic interventions: Ensured contract for safety, maintained a safe and therapeutic environment, provided clear and simple instructions, monitored behaviors and need for intervention, provided active listening, encouraged independent performance of ADLs, obtained order for Chloraseptic Lozenges, and maintained Q 15 min safety checks. Restraints/seclusion/emergency medication: N/A Justification of Continued Inpatient Treatment: Pt. continues to require a safe and supportive environment, and remains GD r/t mental health. He is LPS conserved and awaiting placement.
[2019-11-11] MEDS: NICOTINE POLACRILEX 2 MG LOZENGE BC PRN (19:15)
[2019-11-11 20:00] VITALS: BP 122/100
[2019-11-11] MEDS ORDERED: oseltamivir phos 75mg capsule PO SCH (20:00)
[2019-11-11] MEDS: atorvastatin 10mg tablet PO SCH (21:29)
[2019-11-11] MEDS: oseltamivir phos 75mg capsule PO SCH (21:29)
[2019-11-11] MEDS: LORazepam 1 MG tablet PO PRN (21:40)
--- NOTE | 2019-11-12 01:15 | NUR ---
Nursing Progress Note: Legal hold: LPS Client on involuntary status for GD Report received from nurse with use of SBAR: LUIS FERNANDO Fox Why are they here: Patient had been discharged previously with follow up at [facility] Team. Upon assessment by the [facility] [place] it was determined patient was not able to obtain, food, assisted, or clothing and a 5150 for GD was written. Patient returned within hours of discharge. At time of return patient denied any symptoms related to his mental illness diagnosis of Schizophrenia. He continues to present with cognitive impairment which impedes his ability to care of himself, and requires multiple supports and external structures. Assessment What has happened this shift: Pt was in his room during shift change. Requested Tylenol and a lozenge for his throat. States that his headache is at a level 4 but it was worse earlier. Despite having the flu, pt is in good spirits and states Im doing pretty good actually." Pt denies any vomiting or diarrhea, his temperature was within normal limits. Pt will be moving rooms to be in his own room. Pt is now placed on droplet precautions due to positive influenza. Pt was cooperative during 1:1 physical assessment and took all his HS meds without any issues. He denies any auditory and visual hallucinations, as he looks around and states "we're clear." He did not make any delusional statements per this shift. He did request an Ativan before going to sleep and states that usually during this time his racing thoughts are stronger. Pt is aware that he has to stay in his room and is compliant with this. Will continue to monitor. S/I, H/I: Denies A/VH: Pt. denies Sleep: Currently sleeping, see sleep assessment for total hours ADL's: Requires some prompting and direction from staff at times Group attendance: upper tier, no groups, pt is in droplet precautions and was instructed to stay in his room Were meds taken: Yes Any med S/E: None noted or reported Mental Status Exam Appearance: Appropriately dressed wearing green unit scrubs Eye contact: Good Behavior: Cooperative, calm, Speech: Soft and animated, minimal. Mood: Pleasant, appears happy despite being in isolation due to his current diagnosis Affect: Bright Thought process: Poverty of thought Thought Content: Not being able to watch TV Cognition: A&O X4 Insight: Poor Judgment: Fair Interventions PRN's used: Tylenol, Chloraseptic Lozenge, and Ativan Therapeutic interventions: Ensured contract for safety, maintained a safe and therapeutic environment, provided clear and simple instructions, monitored behaviors and need for intervention, provided active listening, encouraged independent performance of ADLs, obtained order for Chloraseptic Lozenges, and maintained Q 15 min safety checks. Restraints/seclusion/emergency medication: N/A Justification of Continued Inpatient Treatment: Pt. continues to require a safe and supportive environment, and remains GD r/t mental health. He is LPS conserved and awaiting placement.
[2019-11-12] MEDS: sennosides 8.6mg tablet PO SCH ×2 (07:52→20:55)
[2019-11-12] MEDS: propranolol 10mg tablet PO SCH ×3 (07:52→20:55)
[2019-11-12] MEDS: docusate sod 100mg capsule PO SCH ×2 (07:52→20:55)
[2019-11-12] MEDS: pantoprazole 40mg Tablet.DR PO SCH (07:52)
[2019-11-12] MEDS: nicotine 14mg patch - 24hr TD SCH (07:53)
[2019-11-12 08:01] VITALS: BP 129/73
[2019-11-12] MEDS: oseltamivir phos 75mg capsule PO SCH ×2 (08:59→20:55)
[2019-11-12] MEDS: benzocaine/menthol oral lozeng 1 EACH BOX MM PRN ×2 (09:00→12:34)
[2019-11-12] MEDS: lurasidone 20mg tablet PO SCH (12:34)
[2019-11-12] MEDS: clozapine 100mg tablet PO SCH ×2 (14:06→20:55)
[2019-11-12] MEDS: clozapine 25mg tablet PO SCH (14:07)
[2019-11-12] MEDS: LORazepam 1 MG tablet PO PRN ×2 (14:16→21:36)
[2019-11-12] MEDS: pseudoephedrine 30mg tablet PO PRN (17:00)
--- NOTE | 2019-11-12 17:35 | NUR ---
Nursing Progress Note: Legal hold: LPS Client on involuntary status for GD Report received from nurse with use of SBAR: LUIS FERNANDO Fox Why are they here: Patient had been discharged previously with follow up at [facility]. [facility], it was determined patient was not able to obtain, food, snf, or clothing and a 5150 for GD was written. Patient returned within hours of discharge. At time of return patient denied any symptoms related to his mental illness diagnosis of Schizophrenia. He continues to present with cognitive impairment which impedes his ability to care of himself, and requires multiple supports and external structures. Assessment What has happened this shift: Patient is observed sleeping in his room at change of shift. Patient remains on droplet precautions. Patient is in an out of sleep most of the morning. He takes his medications without issue and eats all of his meals. Patient drinks fluids throughout the day. He denies nausea but complains of headache and feeling anxious. He states that his head is congested. Patient states that he is ok with being in his room alone but would like to watch t.v. Patient states that he has difficulty reading because his mind wonders after the first page. S/I, H/I: Denies A/VH: Pt. denies Sleep: 6hrs NOC and rested during the day ADL's: Requires some prompting and direction from staff at times Group attendance: patient on droplet precautions Were meds taken: Yes Any med S/E: None noted or reported Mental Status Exam Appearance: disheveled, dressed appropriate Eye contact: direct, glossy Behavior: Cooperative, calm,sick Speech: Soft, minimal. Mood: Pleasant, appears happy despite being in isolation due to his current diagnosis Affect: Bright Thought process: linear Thought Content: wants to watch t.v Cognition: A&O X4 Insight: Poor Judgment: Fair Interventions PRN's used: Tylenol, Chloraseptic Lozenge, sudafed and Ativan Therapeutic interventions: Ensured contract for safety, maintained a safe and therapeutic environment, provided clear and simple instructions, monitored behaviors and need for intervention, provided active listening, encouraged independent performance of ADLs, and maintained Q 15 min safety checks. Restraints/seclusion/emergency medication: N/A Justification of Continued Inpatient Treatment: Pt. continues to require a safe and supportive environment, and remains GD r/t mental health. He is LPS conserved and awaiting placement.
[2019-11-12 20:09] VITALS: BP 134/86
[2019-11-12] MEDS: atorvastatin 10mg tablet PO SCH (20:55)
--- NOTE | 2019-11-12 23:53 | NUR ---
Nursing Progress Note: Legal hold: LPS Client on involuntary status for GD Report received from nurse with use of SBAR: LUIS FERNANDO Fox Why are they here: Patient had been discharged previously with follow up at [facility] Team. Upon assessment by the [facility], it was determined patient was not able to obtain, food, long term, or clothing and a 5150 for GD was written. Patient returned within hours of discharge. At time of return patient denied any symptoms related to his mental illness diagnosis of Schizophrenia. He continues to present with cognitive impairment which impedes his ability to care of himself, and requires multiple supports and external structures. Assessment What has happened this shift: Pt as in his room during shift change. He continues to be in droplet precaution due to +incluenza A. When asked how he was doing he states pretty good actually with a smile. He asks this RN if he could watch some TV. Charge nurse Ifrah was agreeable to have him by himself, wearing a mask in the recreation room. Pt will be monitored here. Pt was cooperative during 1:1 physical assessment and took all his HS meds without any issues. Nicotine patch was removed. Pt denies any nausea, diarrhea, or SOB. He denies any symptoms and there were no delusional statements made per this shift. Pt was pleasant and smiling as usual. Pt returned to his room at around 0. He requested Ativan before going to sleep and states that he is just having a lot of racing thoughts. S/I, H/I: Denies A/VH: Pt. denies Sleep: Currently sleeping, see sleep assessment for total hours ADL's: Requires some prompting and direction from staff at times Group attendance: shift engineer, no groups, pt is in droplet precautions. Spent some time in recreation room watching TV by himself. Were meds taken: Yes Any med S/E: None noted or reported Mental Status Exam Appearance: Appropriately dressed wearing green unit scrubs Eye contact: Good Behavior: Cooperative, calm, somewhat anxious Speech: Soft and animated, minimal. Mood: pt states "I'm pretty good actually" with a big smile. Affect: Bright Thought process: Poverty of thought Thought Content: Being bored in his room, not having anything to do. Cognition: A&O X4 Insight: Poor Judgment: Fair Interventions PRN's used: Tylenol, Chloraseptic Lozenge, and Ativan Therapeutic interventions: Ensured contract for safety, maintained a safe and therapeutic environment, provided clear and simple instructions, monitored behaviors and need for intervention, provided active listening, encouraged independent performance of ADLs, obtained order for Chloraseptic Lozenges, and maintained Q 15 min safety checks. Restraints/seclusion/emergency medication: N/A Justification of Continued Inpatient Treatment: Pt. continues to require a safe and supportive environment, and remains GD r/t mental health. He is LPS conserved and awaiting placement.
[2019-11-13] MEDS: pantoprazole 40mg Tablet.DR PO SCH (08:23)
[2019-11-13] MEDS: sennosides 8.6mg tablet PO SCH ×2 (08:23→20:00)
[2019-11-13] MEDS: docusate sod 100mg capsule PO SCH ×2 (08:23→20:00)
[2019-11-13] MEDS: nicotine 14mg patch - 24hr TD SCH (08:24)
[2019-11-13] MEDS: propranolol 10mg tablet PO SCH ×3 (08:26→21:35)
[2019-11-13] MEDS: oseltamivir phos 75mg capsule PO SCH ×2 (08:26→20:00)
[2019-11-13 08:36] VITALS: BP 129/77
[2019-11-13 12:00] VITALS: BP 122/74
[2019-11-13] MEDS: lurasidone 20mg tablet PO SCH (12:38)
[2019-11-13] MEDS: clozapine 25mg tablet PO SCH (14:40)
[2019-11-13] MEDS: clozapine 100mg tablet PO SCH ×2 (14:40→21:34)
--- NOTE | 2019-11-13 17:04 | NUR ---
Nursing Progress Note: Legal hold: LPS Client on involuntary status for GD Report received from nurse with use of SBAR: LUIS FERNANDO Fox Why are they here: Patient had been discharged previously with follow up at [facility] Team. Upon assessment by the [facility], it was determined patient was not able to obtain, food, detention, or clothing and a 5150 for GD was written. Patient returned within hours of discharge. At time of return patient denied any symptoms related to his mental illness diagnosis of Schizophrenia. He continues to present with cognitive impairment which impedes his ability to care of himself, and requires multiple supports and external structures. Assessment What has happened this shift: Pt as in his room during shift change. He continues to be in droplet precaution due to +influenza A. Pt states he feels much better. Pt was cooperative during 1:1 physical assessment and took all his daily meds without any issues. Nicotine patch was placed on left shoulder. Pt denies any nausea, diarrhea, or SOB. He denies any symptoms and there were no delusional statements made per this shift. Pt was pleasant and smiling as usual. S/I, H/I: Denies A/VH: Pt. denies Sleep: Pt napped twice during this shift ADL's: Independent Group attendance: No group today Were meds taken: Yes Any med S/E: None noted or reported Mental Status Exam Appearance: Wearing street clothes, black sweats and a tshirt Eye contact: Good Behavior: Cooperative, calm, somewhat anxious Speech: Soft and animated, minimal. Mood: pleasant Affect: Bright Thought process: Poverty of thought Thought Content: Being bored in his room, not having anything to do. Cognition: A&O X4 Insight: Poor Judgment: Fair Interventions PRN's used: No PRN's used this shift Therapeutic interventions: Ensured contract for safety, maintained a safe and therapeutic environment, provided clear and simple instructions, monitored behaviors and need for intervention, provided active listening, encouraged independent performance of ADLs, and maintained Q 15 min safety checks. Restraints/seclusion/emergency medication: N/A Justification of Continued Inpatient Treatment: Pt. continues to require a safe and supportive environment, and remains GD r/t mental health. He is LPS conserved and awaiting placement.
[2019-11-13 20:00] VITALS: BP 127/88
[2019-11-13] MEDS: atorvastatin 10mg tablet PO SCH (21:35)
--- NOTE | 2019-11-13 21:37 | NUR ---
Nursing Progress Note: Legal hold: LPS Client on involuntary status for GD Report received from nurse with use of SBAR: LUIS FERNANDO Fox Why are they here: Patient had been discharged previously with follow up at [facility]. [place] [facility] was not able to obtain, food, [facility], or clothing and a 5150 for GD was written. Patient returned within hours of discharge. At time of return patient denied any symptoms related to his mental illness diagnosis of Schizophrenia. He continues to present with cognitive impairment which impedes his ability to care of himself, and requires multiple supports and external structures. Assessment What has happened this shift: Pt as in his room during shift change. He continues to be in droplet precaution due to +influenza A. Pt states he feels much better. Pt was cooperative during 1:1 physical assessment and took all his daily meds without any issues. Pt denies any nausea, diarrhea, or SOB. He denies any symptoms and there were no delusional statements made per this shift. Pt was pleasant and smiling as usual. S/I, H/I: Denies A/VH: Pt. denies Sleep: Pt napped twice during this shift ADL's: Independent Group attendance: No group today Were meds taken: Yes Any med S/E: None noted or reported Mental Status Exam Appearance: Wearing street clothes, black sweats and a tshirt Eye contact: Good Behavior: Cooperative, calm, somewhat anxious Speech: Soft and animated, minimal. Mood: pleasant Affect: Bright Thought process: Poverty of thought Thought Content: Being bored in his room, not having anything to do. Cognition: A&O X4 Insight: Poor Judgment: Fair Interventions PRN's used: No PRN's used this shift Therapeutic interventions: Ensured contract for safety, maintained a safe and therapeutic environment, provided clear and simple instructions, monitored behaviors and need for intervention, provided active listening, encouraged independent performance of ADLs, and maintained Q 15 min safety checks. Restraints/seclusion/emergency medication: N/A Justification of Continued Inpatient Treatment: Pt. continues to require a safe and supportive environment, and remains GD r/t mental health. He is LPS conserved and awaiting placement.
[2019-11-13] MEDS: LORazepam 1 MG tablet PO PRN (21:52)
[2019-11-14 07:26] VITALS: BP 121/62
[2019-11-14] MEDS: sennosides 8.6mg tablet PO SCH ×2 (08:20→20:38)
[2019-11-14] MEDS: nicotine 14mg patch - 24hr TD SCH (08:21)
[2019-11-14] MEDS: docusate sod 100mg capsule PO SCH ×2 (08:21→20:38)
[2019-11-14] MEDS: oseltamivir phos 75mg capsule PO SCH ×2 (08:21→20:39)
[2019-11-14] MEDS: propranolol 10mg tablet PO SCH ×3 (08:21→20:41)
[2019-11-14] MEDS: pantoprazole 40mg Tablet.DR PO SCH (08:21)
[2019-11-14] MEDS: clozapine 25mg tablet PO SCH (12:51)
[2019-11-14] MEDS: clozapine 100mg tablet PO SCH ×2 (12:51→20:40)
--- NOTE | 2019-11-14 15:08 | NUR ---
Reassessment: Pt PO 75-100% avg meals receiving double proteins TIDWM and salad BIDLD meeting needs. LBM 11/11. Pt has sore throat and positive for influenza A receiving tamiflu per EMR. No nutrition concerns at this time. Will continue to monitor. Rec: 1. continue heart healthy diet 2. Double eggs q breakfast, double meat BIDLD; extra fruits/vegetables on meal trays; salad BIDLD all per diet order 3. anti-hyperlipidemic per MD; TG 204 4. routine bowel care 5. wt per rx Addendum: 11/14/19 at [address] Amended: Links added.
[2019-11-14 20:00] VITALS: BP 148/85
[2019-11-14] MEDS: atorvastatin 10mg tablet PO SCH (20:41)
--- NOTE | 2019-11-14 21:11 | NUR ---
Nursing Progress Note: Legal hold: LPS Client on involuntary status for GD Report received from nurse with use of SBAR: LUIS FERNANDO Fox Why are they here: Patient had been discharged previously with follow up at [facility] Team. Upon assessment by the [facility], it was determined patient was not able to obtain, food, skilled nursing, or clothing and a 5150 for GD was written. Patient returned within hours of discharge. At time of return patient denied any symptoms related to his mental illness diagnosis of Schizophrenia. He continues to present with cognitive impairment which impedes his ability to care of himself, and requires multiple supports and external structures. Assessment What has happened this shift: Pt is isolated to in his room at shift change. He continues to be in droplet precaution due to +influenza A. Pt states he feels much better. Pt was cooperative during 1:1 physical assessment and took all his daily meds without any issues. Pt denies any nausea, diarrhea, or SOB. He denies any symptoms and there were no delusional statements made per this shift. Pt was pleasant and smiling as usual. S/I, H/I: Denies A/VH: Pt. denies Sleep: Pt napped twice during this shift ADL's: Independent Group attendance: No group today Were meds taken: Yes Any med S/E: None noted or reported Mental Status Exam Appearance: Wearing street clothes, black sweats and a tshirt Eye contact: Good Behavior: Cooperative, calm, somewhat anxious Speech: Soft and animated, minimal. Mood: pleasant Affect: Bright Thought process: Poverty of thought Thought Content: Being bored in his room, not having anything to do. Cognition: A&O X4 Insight: Poor Judgment: Fair Interventions PRN's used: No PRN's used this shift Therapeutic interventions: Ensured contract for safety, maintained a safe and therapeutic environment, provided clear and simple instructions, monitored behaviors and need for intervention, provided active listening, encouraged independent performance of ADLs, and maintained Q 15 min safety checks. Restraints/seclusion/emergency medication: N/A Justification of Continued Inpatient Treatment: Pt. continues to require a safe and supportive environment, and remains GD r/t mental health. He is LPS conserved and awaiting placement.
[2019-11-14] MEDS: LORazepam 1 MG tablet PO PRN (21:34)
[2019-11-15 08:02] VITALS: BP 112/60
[2019-11-15] MEDS: pantoprazole 40mg Tablet.DR PO SCH (08:26)
[2019-11-15] MEDS: docusate sod 100mg capsule PO SCH ×2 (08:26→20:34)
[2019-11-15] MEDS: propranolol 10mg tablet PO SCH ×3 (08:26→20:34)
[2019-11-15] MEDS: oseltamivir phos 75mg capsule PO SCH ×2 (08:27→20:33)
[2019-11-15] MEDS: sennosides 8.6mg tablet PO SCH ×2 (08:27→20:34)
[2019-11-15] MEDS: nicotine 14mg patch - 24hr TD SCH (08:29)
[2019-11-15] MEDS: clozapine 25mg tablet PO SCH (13:19)
[2019-11-15] MEDS: clozapine 100mg tablet PO SCH ×2 (13:19→20:36)
--- NOTE | 2019-11-15 17:07 | NUR ---
Nursing Progress Note: Legal hold: LPS Client on involuntary status for GD Report received from RN with use of SBAR Why are they here: Patient had been discharged previously with follow up at [facility] Team. Upon assessment by the [facility], it was determined patient was not able to obtain, food, fci, or clothing and a 5150 for GD was written. Patient returned within hours of discharge. At time of return patient denied any symptoms related to his mental illness diagnosis of Schizophrenia. He continues to present with cognitive impairment which impedes his ability to care of himself, and requires multiple supports and external structures. Assessment What has happened this shift: Received Pt sleeping in his room w/o distress at change of shift. Pt awoke and was calm and cooperative with vitals. He took AM meds and ate in his room, as he remains on droplet isolation. He tolerated being in his room well, but began to ask often about when he can leave his room. He spent time napping, l;ooking through magazines and looking out the window. He remains pleasant and cooperative and did not c/o any flu Sxs. Pt told he will come off of Droplet isolation on Wed11/17/19. S/I, H/I: Denies A/VH: Pt. denies Sleep: Pt napped during this shift ADL's: Independent Group attendance: No group today Were meds taken: Yes Any med S/E: None noted or reported Mental Status Exam Appearance: Wearing street clothes Eye contact: Good Behavior: Cooperative, calm, somewhat anxious Speech: Soft and animated, minimal. Mood: pleasant Affect: Bright Thought process: Poverty of thought Thought Content: Being bored in his room. Cognition: A&O X4 Insight: Poor Judgment: Fair Interventions PRN's used: No PRN's used this shift Therapeutic interventions: Ensured contract for safety, maintained a safe and therapeutic environment, provided clear and simple instructions, monitored behaviors and need for intervention, provided active listening, encouraged independent performance of ADLs, and maintained Q 15 min safety checks. Restraints/seclusion/emergency medication: N/A Justification of Continued Inpatient Treatment: Pt. continues to require a safe and supportive environment, and remains GD r/t mental health. He is LPS conserved and awaiting placement.
[2019-11-15] MEDS: acetaminophen 325mg tablet PO PRN (19:00)
[2019-11-15 20:00] VITALS: BP 133/87
[2019-11-15] MEDS: atorvastatin 10mg tablet PO SCH (20:34)
[2019-11-15] MEDS: LORazepam 1 MG tablet PO PRN (21:42)
--- NOTE | 2019-11-15 22:11 | NUR ---
Nursing Progress Note: Legal hold: LPS Client on involuntary status for GD Report received from RN with use of SBAR Why are they here: Patient had been discharged previously with follow up at [facility] Access Team. Upon assessment by the [facility], it was determined patient was not able to obtain, food, usp, or clothing and a 5150 for GD was written. Patient returned within hours of discharge. At time of return patient denied any symptoms related to his mental illness diagnosis of Schizophrenia. He continues to present with cognitive impairment which impedes his ability to care of himself, and requires multiple supports and external structures. Assessment What has happened this shift: Received Pt in his room w/o distress at change of shift. Pt is calm and cooperative with vitals. He took HS meds and ate snack in his room, as he remains on droplet isolation. He tolerated being in his room well, but began to ask often about when he can leave his room. He remains pleasant and cooperative and did not c/o any flu Sxs. Pt told he will come off of Droplet isolation on Wed11/17/19. S/I, H/I: Denies A/VH: Pt. denies Sleep: Pt napped during this shift ADL's: Independent Group attendance: No group today Were meds taken: Yes Any med S/E: None noted or reported Mental Status Exam Appearance: Wearing street clothes Eye contact: Good Behavior: Cooperative, calm, somewhat anxious Speech: Soft and animated, minimal. Mood: pleasant Affect: Bright Thought process: Poverty of thought Thought Content: Being bored in his room. Cognition: A&O X4 Insight: Poor Judgment: Fair Interventions PRN's used: No PRN's used this shift Therapeutic interventions: Ensured contract for safety, maintained a safe and therapeutic environment, provided clear and simple instructions, monitored behaviors and need for intervention, provided active listening, encouraged independent performance of ADLs, and maintained Q 15 min safety checks. Restraints/seclusion/emergency medication: N/A Justification of Continued Inpatient Treatment: Pt. continues to require a safe and supportive environment, and remains GD r/t mental health. He is LPS conserved and awaiting placement.
[2019-11-16 08:00] VITALS: BP 124/67
[2019-11-16] MEDS: pantoprazole 40mg Tablet.DR PO SCH (08:41)
[2019-11-16] MEDS: oseltamivir phos 75mg capsule PO SCH (08:41)
[2019-11-16] MEDS: docusate sod 100mg capsule PO SCH ×2 (08:42→21:14)
[2019-11-16] MEDS: sennosides 8.6mg tablet PO SCH ×2 (08:42→21:14)
[2019-11-16] MEDS: propranolol 10mg tablet PO SCH ×3 (08:42→21:14)
[2019-11-16] MEDS: clozapine 100mg tablet PO SCH ×2 (08:42→21:15)
[2019-11-16] MEDS: nicotine 14mg patch - 24hr TD SCH (08:43)
[2019-11-16] MEDS: pseudoephedrine 30mg tablet PO PRN (08:43)
[2019-11-16] MEDS: benzocaine/menthol oral lozeng 1 EACH BOX MM PRN (08:43)
--- NOTE | 2019-11-16 12:46 | NUR ---
PLACEMENT Called [facility] office for update on placement. Zachariah is still #11 on wait-list at [facility]. His packet is at [facility]. They are going to send his packet to [facility] as well. MATTHIEU Strange
[2019-11-16] MEDS: clozapine 25mg tablet PO SCH (13:10)
--- NOTE | 2019-11-16 14:09 | NUR ---
Nursing Progress Note: Legal hold: LPS Client on involuntary status for GD Report received from RN with use of SBAR Why are they here: Patient had been discharged previously with follow up at [facility] Access Team. Upon assessment by the [facility], it was determined patient was not able to obtain, food, prison, or clothing and a 5150 for GD was written. Patient returned within hours of discharge. At time of return patient denied any symptoms related to his mental illness diagnosis of Schizophrenia. He continues to present with cognitive impairment which impedes his ability to care of himself, and requires multiple supports and external structures. Assessment What has happened this shift: Received report from LUIS FERNANDO Longoria. Patient is seen sitting in his room. He is pleasant and cooperative with care and he states, "I am so bored. I feel really good. I don't want to stay in my room any more". Explained to patient that infection control will be called tomorrow to see if he can be released from isolation. He is smiling and takes his medications as ordered and prescribed without incident. He denies SI/HI, or A/VH currently. He continues to be hungry and ask for snacks often. Encouraged patient to stay hydrated and offer fresh water often. S/I, H/I: Denies A/VH: Pt. denies Sleep: Pt napped during this shift periodically ADL's: Independent Group attendance: No group today Were meds taken: Yes Any med S/E: None noted or reported Mental Status Exam Appearance: Wearing street clothes Eye contact: Good Behavior: Cooperative, somewhat anxious Speech: Soft and animated, minimal. Mood: pleasant Affect: Bright Thought process: Poverty of thought Thought Content: Being bored in his room. Cognition: A&O X4 Insight: Poor Judgment: Fair Interventions PRN's used: No PRN's used this shift Therapeutic interventions: Ensured contract for safety, maintained a safe and therapeutic environment, provided clear and simple instructions, monitored behaviors and need for intervention, provided active listening, encouraged independent performance of ADLs, and maintained Q 15 min safety checks. Restraints/seclusion/emergency medication: N/A Justification of Continued Inpatient Treatment: Pt. continues to require a safe and supportive environment, and remains GD r/t mental health. He is LPS conserved and awaiting placement.
[2019-11-16 19:00] VITALS: BP 145/88
[2019-11-16] MEDS: atorvastatin 10mg tablet PO SCH (21:14)
[2019-11-16] MEDS: LORazepam 1 MG tablet PO PRN (21:50)
--- NOTE | 2019-11-17 05:18 | NUR ---
Nursing Progress Note: Legal hold: LPS Client on involuntary status for GD Report received from KERMIT Martinez with use of SBAR Why are they here: Patient had been discharged previously with follow up at [facility]. [facility] was determined patient was not able to obtain, food, longterm, or clothing and a 5150 for GD was written. Patient returned within hours of discharge. At time of return patient denied any symptoms related to his mental illness diagnosis of Schizophrenia. He continues to present with cognitive impairment which impedes his ability to care of himself, and requires multiple supports and external structures. Assessment What has happened this shift: Patient remains on droplet precautions r/t influenza A and observed pacing in room at the beginning of shift. He denies loose stools and reports regular BM this shift. Denies symptoms r/t influenza. No symptoms observed this shift. All precautions continued. Patient is pleasant and cooperative; compliant with all medication. He denies SI, HI, A/VH and does not appear to be responding to internal stimuli. Patient continues to report boredom and staff observed patient talking with peers through his door. Staff redirected patients and educated the precautions are to be continued this shift. Patient remained pleasant and cooperative; nodded in agreement. S/I, H/I: Denies A/VH: Denies Sleep: Refer to sleep assessment ADL's: Independent Group attendance: Isolation Were meds taken: Yes Any med S/E: None noted or reported Mental Status Exam Appearance: Wearing street clothes Eye contact: Good Behavior: Cooperative, anxious Speech: Clear, regular rate and rhythm Mood: Bored Affect: Bright Thought process: Poverty of thought Thought Content: Bored and not wantiing to be stuck in his room. Cognition: A&O X4 Insight: Poor Judgment: Fair Interventions PRN's used: Ativan Therapeutic interventions: Ensured contract for safety, maintained a safe and therapeutic environment, provided clear and simple instructions, monitored behaviors and need for intervention, provided active listening, encouraged independent performance of ADLs, and maintained Q 15 min safety checks. Restraints/seclusion/emergency medication: N/A Justification of Continued Inpatient Treatment: Pt. continues to require a safe and supportive environment, and remains GD r/t mental health. He is LPS conserved and awaiting placement.
[2019-11-17 07:41] VITALS: BP 121/85
[2019-11-17] MEDS: pantoprazole 40mg Tablet.DR PO SCH (08:05)
[2019-11-17] MEDS: sennosides 8.6mg tablet PO SCH ×2 (08:05→21:21)
[2019-11-17] MEDS: propranolol 10mg tablet PO SCH ×3 (08:05→21:26)
[2019-11-17] MEDS: docusate sod 100mg capsule PO SCH ×2 (08:05→21:22)
[2019-11-17] MEDS: nicotine 14mg patch - 24hr TD SCH (08:10)
[2019-11-17] MEDS: acetaminophen 325mg tablet PO PRN (12:43)
[2019-11-17 13:15] VITALS: BP 120/77
[2019-11-17] MEDS: clozapine 25mg tablet PO SCH (13:20)
[2019-11-17] MEDS: clozapine 100mg tablet PO SCH ×2 (13:20→21:21)
--- NOTE | 2019-11-17 16:47 | NUR ---
Nursing Progress Note: Legal hold: LPS Client on involuntary status for GD Report received from Dee REYNA with use of SBAR Why are they here: Patient had been discharged previously with follow up at [facility] Team. Upon assessment by the [facility], it was determined patient was not able to obtain, food, residential, or clothing and a 5150 for GD was written. Patient returned within hours of discharge. At time of return patient denied any symptoms related to his mental illness diagnosis of Schizophrenia. He continues to present with cognitive impairment which impedes his ability to care of himself, and requires multiple supports and external structures. Assessment What has happened this shift: Pt denied flu symptoms, afebrile, no cough, lungs clear. Pt was cleared from Droplet isolation today and able to come out of his room. Pt denied depression, anxiety, SI/HI/AH/VH. He did not appear to be responding to internal stimuli. He was happy to be able to come out of his room and to go outside on the patio today. Pt requested prn Tylenol 650 mg @ 1243 for c/o 11/13 headache. Pt's propranolol was increased to 25 mg TID. Pt has a new order for a CBC w/ Diff on 11/25/19. S/I, H/I: Pt denies A/VH: Pt denies Sleep: Pt reported sleeping well ADL's: Independent Group attendance: Yes Were meds taken: Yes Any med S/E: None noted or reported Mental Status Exam Appearance: Clean, appropriate, dressed in street clothes and a baseball cap which he likes to wear sideways. Eye contact: Good Behavior: Pleasant, friendly, cooperative Speech: Clear, regular rate and rhythm Mood: Good Affect: Animated, bright. Thought process: Linear Thought Content: Happy to be allowed to come out of his room. Cognition: A/O X4 Insight: Poor Judgment: Fair Interventions PRN's used: Tylenol 650 mg Therapeutic interventions: 1:1 assessment, active listening, therapeutic conversation, medication administration/education/monitoring, BP and HR monitoring, monitoring of behaviors, positive reinforcement, Q 15 min safety checks. Restraints/seclusion/emergency medication: N/A Justification of Continued Inpatient Treatment: Pt. continues to require a safe and supportive environment, and remains GD r/t mental health. He is LPS conserved and awaiting placement.
[2019-11-17 19:00] VITALS: BP 125/77
[2019-11-17] MEDS: NICOTINE POLACRILEX 2 MG LOZENGE BC PRN ×2 (19:10→21:30)
[2019-11-17] MEDS: atorvastatin 10mg tablet PO SCH (21:22)
[2019-11-17] MEDS: LORazepam 1 MG tablet PO PRN (22:29)
--- NOTE | 2019-11-18 05:20 | NUR ---
Nursing Progress Note: Legal hold: LPS Client on involuntary status for GD Report received from KERMIT Martinez with use of SBAR Why are they here: Patient had been discharged previously with follow up at [facility] Team. Upon assessment by the [facility], it was determined patient was not able to obtain, food, long term, or clothing and a 5150 for GD was written. Patient returned within hours of discharge. At time of return patient denied any symptoms related to his mental illness diagnosis of Schizophrenia. He continues to present with cognitive impairment which impedes his ability to care of himself, and requires multiple supports and external structures. Assessment What has happened this shift: Patient observed watching TV at the beginning of shift. Pleasant and cooperative; compliant with all medication. Patient expressed enthusiasm to be off isolation. Continues to joke and smile. Patient reported mild anxiousness and requested PRN Ativan; positive effect. PRN nicotine lozenge provided x2. Patient denies SI, HI, A/VH and does not appear to be responding to internal stimuli. S/I, H/I: Denies A/VH: Denies Sleep: Refer to sleep assessment ADL's: Independent Group attendance: No groups this shift Were meds taken: Yes Any med S/E: None noted or reported Mental Status Exam Appearance: Wearing street clothes, neat, clean. Eye contact: Good Behavior: Cooperative, watching TV with peers Speech: Clear, regular rate and rhythm Mood: "Good" Affect: Animated Thought process: Linear Thought Content: Happy to be off isolation Cognition: A&O X4 Insight: Poor Judgment: Fair Interventions PRN's used: Ativan, Nicotine Lozenge x2 Therapeutic interventions: Ensured contract for safety, maintained a safe and therapeutic environment, provided clear and simple instructions, monitored behaviors and need for intervention, provided active listening, encouraged independent performance of ADLs, and maintained Q 15 min safety checks. Restraints/seclusion/emergency medication: N/A Justification of Continued Inpatient Treatment: Pt. continues to require a safe and supportive environment, and remains GD r/t mental health. He is LPS conserved and awaiting placement.
[2019-11-18 08:00] VITALS: BP 123/67
[2019-11-18] MEDS: pantoprazole 40mg Tablet.DR PO SCH (08:22)
[2019-11-18] MEDS: docusate sod 100mg capsule PO SCH ×2 (08:23→20:35)
[2019-11-18] MEDS: propranolol 10mg tablet PO SCH ×3 (08:24→20:34)
[2019-11-18] MEDS: sennosides 8.6mg tablet PO SCH ×2 (08:24→20:35)
[2019-11-18] MEDS: nicotine 14mg patch - 24hr TD SCH (08:30)
[2019-11-18] MEDS: clozapine 25mg tablet PO SCH (15:18)
[2019-11-18] MEDS: clozapine 100mg tablet PO SCH ×2 (15:18→20:34)
--- NOTE | 2019-11-18 17:01 | NUR ---
Zachariah Nursing Progress Note: Legal hold: LPS Client on involuntary status for GD Report received from [facility] RN with use of SBAR Why are they here: Patient had been discharged previously with follow up at [facility] Team. Upon assessment by the [facility], it was determined patient was not able to obtain, food, mcc, or clothing and a 5150 for GD was written. Patient returned within hours of discharge. At time of return patient denied any symptoms related to his mental illness diagnosis of Schizophrenia. He continues to present with cognitive impairment which impedes his ability to care of himself, and requires multiple supports and external structures. Assessment What has happened this shift: Pt attended breakfast and took medication. He was pleasant and cooperative. He watched a movie with residents. He is cheerful. He attends movie and popcorn time. Denies SI/HI. S/I, H/I: Denies A/VH: Denies Sleep: 6.25h per [facility] shift assessment ADL's: Independent Group attendance: No Were meds taken: Yes Any med S/E: None noted Mental Status Exam Appearance: Wearing jogging pants, tshirt, and tennis shoes. Eye contact: Good Behavior: Calm. Happy. Socializing with others Speech: WNL Mood: "Good" Affect: Congruent to mood Thought process: Linear Thought Content: Ready to watch movie or go outside Cognition: A&O X4 Insight: Poor Judgment: Fair Interventions PRN's used: None Therapeutic interventions: Ensured contract for safety, maintained a safe and therapeutic environment, provided clear and simple instructions, monitored behaviors and need for intervention, provided active listening, encouraged independent performance of ADLs, and maintained Q 15 min safety checks. Restraints/seclusion/emergency medication: N/A Justification of Continued Inpatient Treatment: Pt. continues to require a safe and supportive environment, and remains GD r/t mental health. He is LPS conserved and awaiting placement.
[2019-11-18] MEDS: NICOTINE POLACRILEX 2 MG LOZENGE BC PRN (17:51)
[2019-11-18 19:00] VITALS: BP 138/87
[2019-11-18] MEDS: atorvastatin 10mg tablet PO SCH (20:34)
[2019-11-18] MEDS: acetaminophen 325mg tablet PO PRN (22:28)
[2019-11-18] MEDS: LORazepam 1 MG tablet PO PRN (22:28)
--- NOTE | 2019-11-19 05:21 | NUR ---
Nursing Progress Note: Legal hold: LPS Client on involuntary status for GD Report received from KERMIT Martinez with use of SBAR Why are they here: Patient had been discharged previously with follow up at [facility] Team. Upon assessment by the [facility], it was determined patient was not able to obtain, food, intermediate, or clothing and a 5150 for GD was written. Patient returned within hours of discharge. At time of return patient denied any symptoms related to his mental illness diagnosis of Schizophrenia. He continues to present with cognitive impairment which impedes his ability to care of himself, and requires multiple supports and external structures. Assessment What has happened this shift: Patient observed watching TV at the beginning of shift. Pleasant and cooperative; compliant with all medication. PRN Tylenol for THOMAS and Ativan for mild anxiousness provided upon request with positive effect. Patient fixated on television in group room and stayed in there until retrieving to bed. Patient denies SI, HI, A/VH. Continues to deny gastro difficulties, body aches or sore throat. No other s/s of illness presented. S/I, H/I: Denies A/VH: Denies Sleep: Refer to sleep assessment ADL's: Independent Group attendance: No groups this shift Were meds taken: Yes Any med S/E: None noted or reported Mental Status Exam Appearance: Wearing street clothes, neat, clean. Eye contact: Good Behavior: Cooperative, watching TV with peers Speech: Clear, regular rate and rhythm Mood: "Good" Affect: Animated Thought process: Linear Thought Content: Unable to assess- fixated on TV Cognition: A&O X4 Insight: Poor Judgment: Fair Interventions PRN's used: Ativan and Tylenol Therapeutic interventions: Ensured contract for safety, maintained a safe and therapeutic environment, provided clear and simple instructions, monitored behaviors and need for intervention, provided active listening, encouraged independent performance of ADLs, and maintained Q 15 min safety checks. Restraints/seclusion/emergency medication: N/A Justification of Continued Inpatient Treatment: Pt. continues to require a safe and supportive environment, and remains GD r/t mental health. He is LPS conserved and awaiting placement.
[2019-11-19 08:00] VITALS: BP 96/51
[2019-11-19] MEDS: docusate sod 100mg capsule PO SCH ×2 (08:20→20:38)
[2019-11-19] MEDS: propranolol 10mg tablet PO SCH ×4 (08:20→20:38)
[2019-11-19] MEDS: pantoprazole 40mg Tablet.DR PO SCH (08:20)
[2019-11-19] MEDS: sennosides 8.6mg tablet PO SCH ×2 (08:20→20:38)
[2019-11-19] MEDS: nicotine 14mg patch - 24hr TD SCH (08:37)
[2019-11-19] MEDS: clozapine 25mg tablet PO SCH (14:00)
[2019-11-19] MEDS: clozapine 100mg tablet PO SCH ×2 (14:00→20:39)
--- NOTE | 2019-11-19 16:10 | NUR ---
Nursing Progress Note: Legal hold: LPS Client on involuntary status for GD Report received from RN with use of SBAR Why are they here: Patient had been discharged previously with follow up at [facility] Team. Upon assessment by the [facility], it was determined patient was not able to obtain, food, prison, or clothing and a 5150 for GD was written. Patient returned within hours of discharge. At time of return patient denied any symptoms related to his mental illness diagnosis of Schizophrenia. He continues to present with cognitive impairment which impedes his ability to care of himself, and requires multiple supports and external structures. Assessment What has happened this shift: Received Pt sleeping in his room w/o distress at change of shift. Pt awoke and was calm and cooperative with vitals. He took AM meds and ate breakfast and all meals in the community room and interacted well with others. He remains pleasant and cooperative and has no flu Sxs. Pt seen talking to self at times and generally in a euthymic mood. Pt enjoyed joking with staff and was quite funny. S/I, H/I: Denies A/VH: Pt. denies Sleep: Pt napped during this shift ADL's: Independent Group attendance: No groups today Were meds taken: Yes Any med S/E: None noted or reported Mental Status Exam Appearance: Wearing street clothes Eye contact: Good Behavior: Cooperative, calm, somewhat anxious Speech: Soft and animated, minimal. Mood: pleasant Affect: Bright Thought process: Poverty of thought Thought Content: Joking with staff. Cognition: A&O X4 Insight: Poor Judgment: Fair Interventions PRN's used: No PRN's used this shift Therapeutic interventions: Ensured contract for safety, maintained a safe and therapeutic environment, provided clear and simple instructions, monitored behaviors and need for intervention, provided active listening, encouraged independent performance of ADLs, and maintained Q 15 min safety checks. Restraints/seclusion/emergency medication: N/A Justification of Continued Inpatient Treatment: Pt. continues to require a safe and supportive environment, and remains GD r/t mental health. He is LPS conserved and awaiting placement.
[2019-11-19] MEDS: atorvastatin 10mg tablet PO SCH (20:37)
[2019-11-19 20:46] VITALS: BP 113/79
[2019-11-19] MEDS: LORazepam 1 MG tablet PO PRN (21:34)
--- NOTE | 2019-11-20 03:43 | NUR ---
Nursing Progress Note: Legal hold: LPS Client on involuntary status for GD Report received from KERMIT Martinez with use of SBAR Why are they here: Patient had been discharged previously with follow up at [facility] Team. Upon assessment by the [facility], it was determined patient was not able to obtain, food, mcfp, or clothing and a 5150 for GD was written. Patient returned within hours of discharge. At time of return patient denied any symptoms related to his mental illness diagnosis of Schizophrenia. He continues to present with cognitive impairment which impedes his ability to care of himself, and requires multiple supports and external structures. Assessment What has happened this shift: At beginning of shift, patient up ambulating in the hallways. Patient calm, appeared in a good mood, and allowed for vital signs and physical assessment to be completed. Patient later seen in the recreation room watching TV. At 8pm, patient seen in the community room when snacks were made available. Patient took all medications this shift. Patient has not been seen talking to self thus far and is currently sleeping in his room. S/I, H/I: Denies A/VH: Pt. denies Sleep: See sleep hours ADL's: Independent Group attendance: Went to rec room and community room this shift Were meds taken: Yes Any med S/E: None noted or reported Mental Status Exam Appearance: Wearing street clothes Eye contact: Good Behavior: Cooperative, calm Speech: Soft, appropriate Mood: pleasant Affect: Bright Thought process: Poverty of thought Thought Content: Discharging Cognition: A&O X4 Insight: Poor Judgment: Fair Interventions PRN's used: No PRN's used this shift Therapeutic interventions: Ensured contract for safety, maintained a safe and therapeutic environment, provided clear and simple instructions, monitored behaviors and need for intervention, provided active listening, encouraged independent performance of ADLs, and maintained Q 15 min safety checks. Restraints/seclusion/emergency medication: N/A Justification of Continued Inpatient Treatment: Pt. continues to require a safe and supportive environment, and remains GD r/t mental health. He is LPS conserved and awaiting placement.
[2019-11-20 08:00] VITALS: BP 94/61
[2019-11-20] MEDS: propranolol 10mg tablet PO SCH ×3 (08:00→20:00)
[2019-11-20] MEDS: sennosides 8.6mg tablet PO SCH ×2 (08:11→19:56)
[2019-11-20] MEDS: pantoprazole 40mg Tablet.DR PO SCH (08:11)
[2019-11-20] MEDS: docusate sod 100mg capsule PO SCH ×2 (08:11→19:56)
[2019-11-20] MEDS: nicotine 14mg patch - 24hr TD SCH (08:12)
[2019-11-20] MEDS: NICOTINE POLACRILEX 2 MG LOZENGE BC PRN ×2 (11:05→18:38)
[2019-11-20] MEDS: clozapine 25mg tablet PO SCH (15:34)
[2019-11-20] MEDS: clozapine 100mg tablet PO SCH ×2 (15:36→20:00)
[2019-11-20] MEDS: benzocaine/menthol oral lozeng 1 EACH BOX MM PRN (15:44)
--- NOTE | 2019-11-20 17:37 | NUR ---
Nursing Progress Note: Legal hold: LPS Client on involuntary status for GD Report received from RN with use of SBAR Why are they here: Patient had been discharged previously with follow up at [facility] Access Team. Upon assessment by the [facility], it was determined patient was not able to obtain, food, mcfp, or clothing and a 5150 for GD was written. Patient returned within hours of discharge. At time of return patient denied any symptoms related to his mental illness diagnosis of Schizophrenia. He continues to present with cognitive impairment which impedes his ability to care of himself, and requires multiple supports and external structures. Assessment What has happened this shift: Received Pt sleeping in his room w/o distress at change of shift. Pt awoke and was calm and cooperative with vitals. He took AM meds and ate breakfast and all meals in the community room and interacted well with others. He napped after breakfast. He then returned to the community room for lunch. He interacted with other residents and staff in the TV room in the afternoon. He remains pleasant and cooperative and has no flu Sxs. He asked for a throat lozenge because he stated his throat was dry but not sore. Pt enjoyed joking with staff and was quite funny. S/I, H/I: Denies A/VH: Pt. denies Sleep: Pt napped during this shift ADL's: Independent Group attendance: No groups today Were meds taken: Yes Any med S/E: None noted or reported Mental Status Exam Appearance: Wearing street clothes Eye contact: Good Behavior: Cooperative, calm Speech: Soft and animated, minimal. Mood: pleasant Affect: Bright Thought process: Poverty of thought Thought Content: Joking with staff. Cognition: A&O X4 Insight: Poor Judgment: Fair Interventions PRN's used: Throat Lozenge for dry throat Therapeutic interventions: Ensured contract for safety, maintained a safe and therapeutic environment, provided clear and simple instructions, monitored behaviors and need for intervention, provided active listening, encouraged independent performance of ADLs, and maintained Q 15 min safety checks. Restraints/seclusion/emergency medication: N/A Justification of Continued Inpatient Treatment: Pt. continues to require a safe and supportive environment, and remains GD r/t mental health. He is LPS conserved and awaiting placement.
[2019-11-20 20:00] VITALS: BP 139/81
[2019-11-20] MEDS: atorvastatin 10mg tablet PO SCH (20:00)
[2019-11-20] MEDS: LORazepam 1 MG tablet PO PRN (21:35)
--- NOTE | 2019-11-20 22:01 | NUR ---
Nursing Progress Note: Legal hold: LPS Client on involuntary status for GD Report received from KERMIT Martinez with use of SBAR Why are they here: Patient had been discharged previously with follow up at [facility] Team. Upon assessment by the [facility], it was determined patient was not able to obtain, food, alf, or clothing and a 5150 for GD was written. Patient returned within hours of discharge. At time of return patient denied any symptoms related to his mental illness diagnosis of Schizophrenia. He continues to present with cognitive impairment which impedes his ability to care of himself, and requires multiple supports and external structures. Assessment What has happened this shift: At beginning of shift, patient up ambulating in the hallways. Pt denies having any complaints and denied a/vh but was seen talking to himself after snack. Pt spent the evening watching tv and walking the halls with a smile on his face. He continues to be pleasant, friendly and amicable to care. Pt asked for ativan for anxiety at approx 2130 and then went to bed. S/I, H/I: Denies A/VH: Pt. denies Sleep: See sleep hours ADL's: Independent Group attendance: no groups Were meds taken: Yes Any med S/E: None noted or reported Mental Status Exam Appearance: Wearing street clothes Eye contact: Good Behavior: Cooperative, calm Speech: Soft, appropriate Mood: pleasant Affect: Bright Thought process: Poverty of thought Thought Content: tv Cognition: A&O X4 Insight: Poor Judgment: Fair Interventions PRN's used: ativan Therapeutic interventions: Ensured contract for safety, maintained a safe and therapeutic environment, provided clear and simple instructions, monitored behaviors and need for intervention, provided active listening, encouraged independent performance of ADLs, and maintained Q 15 min safety checks. Restraints/seclusion/emergency medication: N/A Justification of Continued Inpatient Treatment: Pt. continues to require a safe and supportive environment, and remains GD r/t mental health. He is LPS conserved and awaiting placement.
[2019-11-21 08:00] VITALS: BP 111/45
[2019-11-21] MEDS: propranolol 10mg tablet PO SCH ×3 (08:00→20:50)
[2019-11-21] MEDS: pantoprazole 40mg Tablet.DR PO SCH (08:16)
[2019-11-21] MEDS: docusate sod 100mg capsule PO SCH ×2 (08:16→20:51)
[2019-11-21] MEDS: sennosides 8.6mg tablet PO SCH ×2 (08:16→20:51)
[2019-11-21] MEDS: nicotine 14mg patch - 24hr TD SCH (08:20)
--- NOTE | 2019-11-21 11:32 | NUR ---
Reassessment: Pt continues meeting nutrient needs with 75-100% PO intake on heart healthy diet and receiving double protein TID. LBM 11/18. Pt receiving routine bowel care. No nutrition intervention warranted at this time. Will continue to follow. Rec: 1. continue heart healthy diet 2. Double eggs q breakfast, double meat BIDLD; extra fruits/vegetables on meal trays; salad BIDLD all per diet order 3. routine bowel care 4. wt per rx Addendum: 11/21/19 at [address] Amended: Links added.
[2019-11-21 13:40] VITALS: BP 113/79
[2019-11-21] MEDS: clozapine 25mg tablet PO SCH (13:45)
[2019-11-21] MEDS: clozapine 100mg tablet PO SCH ×2 (13:45→20:51)
--- NOTE | 2019-11-21 15:06 | NUR ---
Nursing Progress Note: Legal hold: LPS Client on involuntary status for GD Report received from KERMIT Guerrero with use of SBAR Why are they here: Patient had been discharged previously with follow up at [facility] Team. Upon assessment by the [facility], it was determined patient was not able to obtain, food, correction, or clothing and a 5150 for GD was written. Patient returned within hours of discharge. At time of return patient denied any symptoms related to his mental illness diagnosis of Schizophrenia. He continues to present with cognitive impairment which impedes his ability to care of himself, and requires multiple supports and external structures. Assessment What has happened this shift: Pt slept in for awhile this morning though did eventually get up in time to eat breakfast. Pt returned to bed and napped after breakfast. Pt likes to watch TV and movies in the community room. Pt watched the cartoon movie [place] [employer]. Pt is pleasant and cooperative with meds and care. Pt did not appear to be responding to internal stimuli today. S/I, H/I: Pt denies A/VH: Pt denies Sleep: Pt slept 7.25 hours last night per noc shift report. ADL's: Independent Group attendance: no groups today Were meds taken: Yes Any med S/E: None noted or reported Mental Status Exam Appearance: clean, appropriate Eye contact: Good Behavior: Pleasant, calm, cooperative Speech: Clear, audible, minimal Mood: Good Affect: Appropriate Thought process: Poverty of thought, linear Thought Content: Likes to watch movies Cognition: A/O X4 Insight: Poor Judgment: Fair Interventions PRN's used: None Therapeutic interventions: 1:1 assessment, encouraged pt to express thoughts and feelings, active listening, therapeutic conversation, medication administration/education/monitoring, behavior monitoring, Q 15 min safety checks. Restraints/seclusion/emergency medication: N/A Justification of Continued Inpatient Treatment: Pt continues to require a safe and supportive environment, and remains GD r/t mental health. He is LPS conserved and awaiting placement.
[2019-11-21] MEDS: NICOTINE POLACRILEX 2 MG LOZENGE BC PRN (18:10)
[2019-11-21 20:09] VITALS: BP 121/78
[2019-11-21] MEDS: atorvastatin 10mg tablet PO SCH (20:51)
[2019-11-21] MEDS: LORazepam 1 MG tablet PO PRN (22:24)
--- NOTE | 2019-11-21 23:00 | NUR ---
Nursing Progress Note: Legal hold: LPS Client on involuntary status for GD Report received from KERMIT Martinez with use of SBAR Why are they here: Patient had been discharged previously with follow up at [facility] Team. Upon assessment by the [facility], it was determined patient was not able to obtain, food, intermediate, or clothing and a 5150 for GD was written. Patient returned within hours of discharge. At time of return patient denied any symptoms related to his mental illness diagnosis of Schizophrenia. He continues to present with cognitive impairment which impedes his ability to care of himself, and requires multiple supports and external structures. Assessment What has happened this shift: Pt was in tv room during shift change. He was smiling, states he was doing good. Pt spent most of the evening watching TV, socializing appropriately with other patients. He was cooperative during 1:1 physical assessment and took all his HS meds without any issues. Denies any AV/H but was observed responding to some internal stimuli as he talks to someone that is not thre. Pt. charged his ankle monitor for some time and then requested an Ativan prior to going to sleep. He states that this helps his with his racing thoughts, which help him fall asleep. S/I, H/I: Denies A/VH: Denies, does appear to be responding to internal stimuli Sleep: Currently sleeping, see sleep assessment for total hours. ADL's: Independent Group attendance: No groups this shift Were meds taken: Yes Any med S/E: None noted or reported Mental Status Exam Appearance: Wearing street clothes, neat, clean, somewhat overweight. Eye contact: Good Behavior: Cooperative, calm, smiling, socializing appropriately Speech: Soft, normal rate and rhythm Mood: Happy Affect: Animated, congruent with mood Thought process: Linear Thought Content: Fixated on TV Cognition: A&O X4 Insight: Poor Judgment: Fair Interventions PRN's used: Ativan Therapeutic interventions: Ensured contract for safety, maintained a safe and therapeutic environment, provided clear and simple instructions, monitored behaviors and need for intervention, provided active listening, encouraged independent performance of ADLs, and maintained Q 15 min safety checks. Restraints/seclusion/emergency medication: N/A Justification of Continued Inpatient Treatment: Pt. continues to require a safe and supportive environment, and remains GD r/t mental health. He is LPS conserved and awaiting placement.
[2019-11-22 07:00] VITALS: BP 112/63
[2019-11-22] MEDS: nicotine 14mg patch - 24hr TD SCH (08:19)
[2019-11-22] MEDS: sennosides 8.6mg tablet PO SCH ×2 (08:19→20:46)
[2019-11-22] MEDS: propranolol 10mg tablet PO SCH ×3 (08:19→20:53)
[2019-11-22] MEDS: docusate sod 100mg capsule PO SCH ×2 (08:19→20:45)
[2019-11-22] MEDS: pantoprazole 40mg Tablet.DR PO SCH (08:19)
[2019-11-22] MEDS: clozapine 100mg tablet PO SCH ×2 (13:31→20:46)
[2019-11-22] MEDS: clozapine 25mg tablet PO SCH (13:31)
[2019-11-22] MEDS: NICOTINE POLACRILEX 2 MG LOZENGE BC PRN (15:38)
--- NOTE | 2019-11-22 17:45 | NUR ---
Nursing Progress Note: Zachariah Legal hold: LPS Client on involuntary status for GD Report received from KERMIT Guerrero with use of SBAR Why are they here: Patient had been discharged previously with follow up at [facility] Team. Upon assessment by the [facility], it was determined patient was not able to obtain, food, nursing home, or clothing and a 5150 for GD was written. Patient returned within hours of discharge. At time of return patient denied any symptoms related to his mental illness diagnosis of Schizophrenia. He continues to present with cognitive impairment which impedes his ability to care of himself, and requires multiple supports and external structures. Assessment What has happened this shift: Received pt sleeping in bed at shift change. Patient slept in this morning and ate his breakfast late. Patient reports that he has been accepted at a [facility], but that he is 11th in line for an opening. He states that he is getting "too amped up here, and I think it would be best if I go." Pt. states that he likes it at this facility, but wants to go somewhere fun, where there are things to do. Patient states that his disability is coming through in a couple of months and patient is excited about having financial support. S/I, H/I: Pt denies A/VH: Pt denies Sleep: 8.0 hrs NOC, napped in morning. ADL's: Independent Group attendance: no groups today Were meds taken: Yes Any med S/E: None noted or reported Mental Status Exam Appearance: clean and neat in black sweat pants and black t-shirt. Eye contact: Good Behavior: Pleasant, calm, cooperative Speech: Clear, audible, minimal Mood: Good Affect: Blunted. Thought process: Poverty of thought, linear. Circumstantial. Thought Content: Wanting to discharge. Cognition: A/O X4 Insight: Poor Judgment: Fair Interventions PRN's used: None Therapeutic interventions: 1:1 assessment, encouraged pt to express thoughts and feelings, active listening, therapeutic conversation, medication administration/education/monitoring, behavior monitoring, Q 15 min safety checks. Restraints/seclusion/emergency medication: N/A Justification of Continued Inpatient Treatment: Pt continues to require a safe and supportive environment, and remains GD r/t mental health. He is LPS conserved and awaiting placement
[2019-11-22 20:00] VITALS: BP 98/70
[2019-11-22] MEDS: atorvastatin 10mg tablet PO SCH (20:45)
--- NOTE | 2019-11-22 23:43 | NUR ---
Nursing Progress Note: Legal hold: LPS Client on involuntary status for GD Report received from KERMIT Peraza with use of SBAR Why are they here: Patient had been discharged previously with follow up at [facility] Team. Upon assessment by the [facility], it was determined patient was not able to obtain, food, usp, or clothing and a 5150 for GD was written. Patient returned within hours of discharge. At time of return patient denied any symptoms related to his mental illness diagnosis of Schizophrenia. He continues to present with cognitive impairment which impedes his ability to care of himself, and requires multiple supports and external structures. Assessment What has happened this shift: Pt walking around unit at change of shift. Spends most of his time watching TV in either the recreation room or community room, preferring action or comedies. He is agreeable wit care and medications, and interacts appropriately with peers and staff alike, occasionally joking and laughing. Denies s/sx and not observed to be responding to IS this evening. S/I, H/I: Denies Both A/VH: Denies Both Sleep: See Sleep Assessment ADL's: Independent Group attendance: N/A Were meds taken: Yes Any med S/E: None noted nor reported Mental Status Exam Appearance: Clean, Appropriate, wearing nonskid socks, shoes without laces, and personal attire Eye contact: Good Behavior: Calm, Cooperative, Watching TV, Attending Snack, Joking with peers Speech: Clear, audible, minimal Mood: "I'm alright" Affect: Appropriate Thought process: Poverty of thought, Linear Thought Content: Wanting to watch a new movie Cognition: A/Ox4 Insight: Poor Judgment: Fair Interventions PRN's used: None Therapeutic interventions: 1:1 assessment, encouraged pt to express thoughts and feelings, active listening, therapeutic conversation, medication administration/education/monitoring, behavior monitoring, Q 15 min safety checks. Restraints/seclusion/emergency medication: N/A Justification of Continued Inpatient Treatment: Pt continues to require a safe and supportive environment, and remains GD r/t mental health. He is LPS conserved and awaiting placement.
[2019-11-23 08:00] VITALS: BP 128/63
[2019-11-23] MEDS: propranolol 10mg tablet PO SCH ×3 (08:04→21:11)
[2019-11-23] MEDS: nicotine 14mg patch - 24hr TD SCH (08:04)
[2019-11-23] MEDS: sennosides 8.6mg tablet PO SCH ×2 (08:04→21:10)
[2019-11-23] MEDS: pantoprazole 40mg Tablet.DR PO SCH (08:04)
[2019-11-23] MEDS: docusate sod 100mg capsule PO SCH ×2 (08:04→21:11)
--- NOTE | 2019-11-23 12:09 | NUR ---
PLACEMENT Per [facility], Zachariah is now #8 on wait-list at [facility]. Packet it also at [facility], [facility], and [facility]. MATTHIEU Strange
[2019-11-23] MEDS: clozapine 100mg tablet PO SCH ×2 (13:47→21:11)
[2019-11-23] MEDS: clozapine 25mg tablet PO SCH (13:47)
--- NOTE | 2019-11-23 14:13 | NUR ---
NURSING PROGRESS NOTE Legal hold: LPS Client on involuntary status for GD Report received from KERMIT Guerrero with use of SBAR Why are they here: Patient had been discharged previously with follow up at [facility] Team. Upon assessment by the [facility], it was determined patient was not able to obtain, food, longterm, or clothing and a 5150 for GD was written. Patient returned within hours of discharge. At time of return patient denied any symptoms related to his mental illness diagnosis of Schizophrenia. He continues to present with cognitive impairment which impedes his ability to care of himself, and requires multiple supports and external structures. Assessment What has happened this shift: The patient slept in and got up to a late breakfast. Cooperative and pleasant, interacting with others, watching TV and taking responsibility for charging his ankle bracelet. States he is looking forward to going to a new facility and having more to do. He is medication compliant. Denies SI/HI/VH/AH today. Happy, smiling. S/I, H/I: Pt denies A/VH: Pt denies Sleep: napped ADL's: Independent Group attendance: no groups today Were meds taken: Yes Any med S/E: None noted or reported Mental Status Exam Appearance: clean and neat Eye contact: Good Behavior: Pleasant and cooperative Speech: Clear Mood: Good Affect: Smiling Thought process: Poverty of thought, linear. Circumstantial. Thought Content: Wanting to discharge. Cognition: Alert Insight: Fair Judgment: Fair Interventions PRN's used: None Therapeutic interventions: 1:1 assessment, encouraged pt to express thoughts and feelings, active listening, therapeutic conversation, medication administration/education/monitoring, behavior monitoring, Q 15 min safety checks. Restraints/seclusion/emergency medication: N/A Justification of Continued Inpatient Treatment: Pt continues to require a safe and supportive environment, and remains GD r/t mental health. He is LPS conserved and awaiting placement
[2019-11-23] MEDS: NICOTINE POLACRILEX 2 MG LOZENGE BC PRN (15:02)
[2019-11-23 19:00] VITALS: BP 117/74
[2019-11-23] MEDS: atorvastatin 10mg tablet PO SCH (21:11)
[2019-11-23] MEDS: LORazepam 1 MG tablet PO PRN (23:10)
--- NOTE | 2019-11-24 01:10 | NUR ---
Nursing Progress Note: Legal hold: LPS Client on involuntary status for GD Report received from KERMIT Fox with use of SBAR Why are they here: Patient had been discharged previously with follow up at [facility]. Upon assessment by the [facility], it was determined patient was not able to obtain, food, fpc, or clothing and a 5150 for GD was written. Patient returned within hours of discharge. At time of return patient denied any symptoms related to his mental illness diagnosis of Schizophrenia. He continues to present with cognitive impairment which impedes his ability to care of himself, and requires multiple supports and external structures. Assessment What has happened this shift: Pt isolated to himself more this evening preferring not to engage with staff or peers as much. Pt watched an evening movie and attended HS snack. "I like war movies, this one is about WWII, it's good." Pt cooperative with care and endorses anxiety this evening, "I just feel like my heart is racing more than usual. I can't sit still. I don't like this feeling." Pt retired to bed once his movie was complete. S/I, H/I: Denies Both A/VH: Denies Both, Observed to be responding to IS Sleep: See Sleep Assessment ADL's: Independent Group attendance: N/A Were meds taken: Yes Any med S/E: None noted nor reported Mental Status Exam Appearance: Clean, Appropriate, wearing nonskid socks, shoes without laces, and personal attire Eye contact: Good Behavior: Cooperative, Watching TV, Attending Snack, Pacing Speech: Clear, audible, minimal Mood: "I'm good" Pt presents as more subdued this evening Affect: Appropriate Thought process: Poverty of thought, Linear Thought Content: Keeping entertained on the unit, primarily focused on movies Cognition: A/Ox4 Insight: Poor Judgment: Fair Interventions PRN's used: Ativan 1mg for anxiety Therapeutic interventions: 1:1 assessment, encouraged pt to express thoughts and feelings, active listening, therapeutic conversation, medication administration/education/monitoring, behavior monitoring, Q 15 min safety checks. Restraints/seclusion/emergency medication: N/A Justification of Continued Inpatient Treatment: Pt continues to require a safe and supportive environment, and remains GD r/t mental health. He is LPS conserved and awaiting placement.
[2019-11-24 08:00] VITALS: BP 103/55
[2019-11-24] MEDS: propranolol 10mg tablet PO SCH ×3 (08:00→20:10)
[2019-11-24] MEDS: sennosides 8.6mg tablet PO SCH ×2 (08:17→20:10)
[2019-11-24] MEDS: docusate sod 100mg capsule PO SCH ×2 (08:17→20:10)
[2019-11-24] MEDS: pantoprazole 40mg Tablet.DR PO SCH (08:17)
[2019-11-24] MEDS: nicotine 14mg patch - 24hr TD SCH (08:24)
--- NOTE | 2019-11-24 11:15 | NUR ---
Nursing Progress Note: Legal hold: LPS Client on involuntary status for GD Report received from Ania GOULD with use of SBAR Why are they here: Patient had been discharged previously with follow up at [facility] Team. Upon assessment by the [facility], it was determined patient was not able to obtain, food, care home, or clothing and a 5150 for GD was written. Patient returned within hours of discharge. At time of return patient denied any symptoms related to his mental illness diagnosis of Schizophrenia. He continues to present with cognitive impairment which impedes his ability to care of himself, and requires multiple supports and external structures. Assessment What has happened this shift: Pt was up for breakfast and cooperative with medications. Held am Propranolol as BP was low at 103/55. HR was 87. Pt looked in the med cup and asked why he was no longer taking the antibiotic. Educated that he had been on it for acne and that the doctor had discontinued it maybe feeling that the risks of taking a detention antibiotic may have outweighed the benefits. Pt stated, "yea but it's getting worse." Asked pt if he was washing his face everyday. Pt replied no. Encouraged pt to wash his face with soap and water every morning and every evening as this can help with acne. Pt expressed understanding. S/I, H/I: Pt denies A/VH: Pt denies Sleep: Pt slept 7.75 hours per noc shift report ADL's: Independent Group attendance: N/A Were meds taken: Yes Any med S/E: None noted nor reported Mental Status Exam Appearance: Clean, Appropriate, wearing nonskid socks, shoes without laces, and personal attire Eye contact: Good Behavior: Pleasant, cooperative Speech: Clear, audible, minimal Mood: Good Affect: Appropriate Thought process: Poverty of thought, Linear Thought Content: Concerned his acne is coming back Cognition: A/O X 4 Insight: Poor Judgment: Fair Interventions PRN's used: None Therapeutic interventions: 1:1 assessment, encouraged pt to express thoughts and feelings, active listening, therapeutic conversation, medication administration/education/monitoring, encouragement to perform personal hygiene/skin care, behavior monitoring, Q 15 min safety checks. Restraints/seclusion/emergency medication: N/A Justification of Continued Inpatient Treatment: Pt continues to require a safe and supportive environment, and remains GD r/t mental health. He is LPS conserved and awaiting placement.
[2019-11-24 12:27] VITALS: BP 110/67
--- NOTE | 2019-11-24 12:48 | NUR ---
CM Presenting Issues: Pt's ready for placement, have been compliant with medication treatment, participated in groups, utilizes positive behavioral coping strategies (ignoring and avoiding patients who annoy him), is appropriate when socializing w/staff & other patients. Interventions: SS met w/pt engaged him in discussion re his desires of a placement. Pt reports that he would like a place that can "take you out and do things like go shopping, bowling or the movies or to get a hamburger". SS reviewed w/pt what had happened when he was @ the [facility] Pt reports that at the time he didn't understand that he had to be back @ [facility] at a certain time, but that he did go back to [facility] only to find that he was locked out. Pt further expressed that if he had a place to live where "I have food to eat, support to take my meds and I am safe, I would not leave". [facility]-Kath[facility] & requested that pt be re-evaluated to see if a Board & Care facility would be an appropriate placement for pt given his progress here. Per t/c, pt was recently re-evaluated however, pt currently has no income to pay for a Board & Care at this time. Plan: SS will continue to engage [place] [facility] office in dcp activities. Shirin Carlos LCSW Addendum: 11/24/19 at 1345 by Shirin Carlos SS Amended: Links added.
[2019-11-24] MEDS: clozapine 25mg tablet PO SCH (13:36)
[2019-11-24] MEDS: clozapine 100mg tablet PO SCH ×2 (13:37→20:10)
[2019-11-24] MEDS ORDERED: propranolol 10mg tablet PO ONE (14:35)
[2019-11-24 14:48] VITALS: BP 124/77
[2019-11-24 19:00] VITALS: BP 124/83
[2019-11-24] MEDS: NICOTINE POLACRILEX 2 MG LOZENGE BC PRN (19:33)
[2019-11-24] MEDS: benztropine 1mg tablet PO SCH (20:10)
[2019-11-24] MEDS: atorvastatin 10mg tablet PO SCH (20:10)
[2019-11-24] MEDS: LORazepam 1 MG tablet PO PRN (21:32)
--- NOTE | 2019-11-24 23:05 | NUR ---
Nursing Progress Note: Legal hold: LPS Client on involuntary status for GD Report received from nurse with use of SBAR: LUIS FERNANDO Martinez Why are they here: Patient had been discharged previously with follow up at [facility] Team. Upon assessment by the [facility], it was determined patient was not able to obtain, food, senior care, or clothing and a 5150 for GD was written. Patient returned within hours of discharge. At time of return patient denied any symptoms related to his mental illness diagnosis of Schizophrenia. He continues to present with cognitive impairment which impedes his ability to care of himself, and requires multiple supports and external structures. Assessment What has happened this shift: Pt. up watching TV in Recreation Room at the beginning of the shift, interacting minimally with others. He greets this magnetic tape typewriter operator animatedly and requests a PRN Nicotine Lozenge; joking with this magnetic tape typewriter operator about smoking a cigarette. 1:1 completed, pt. continues to deny any mental health s/s and no delusional statements made. He states with a bright smile, "I had a good day!" However, later at HS pt. requests PRN Ativan r/t anxiety and feeling slightly short of breath. He admits that he is also feeling anxious regarding when he will be able to leave. PRN Ativan administered, lung sounds assessed and clear bilaterally, and pulse oximetry reading WNL. Pt. then states, "My shortness of breath is going away," no further s/s of distress noted. Pt. resting comfortably at this time, will continue to monitor. S/I, H/I: Denies A/VH: Pt. denies, no s/s of response to internal stimuli Sleep: Pt. appears to be resting comfortably ADL's: Requires some prompting and direction from staff at times Group attendance: Pt. does accept HS snack Were meds taken: Yes Any med S/E: None Mental Status Exam Appearance: Presents as neat, and appropriately dressed Eye contact: Good Behavior: Cooperative, slightly anxious, and guarded Speech: Soft and animated, child-like. Responds minimally to questions Mood: Pleasant Affect: Blunted with animation Thought process: Poverty of thought Thought Content: WNL Cognition: A&O X4 Insight: Poor Judgment: Poor to fair Interventions PRN's used: Nicotine Lozenge and Ativan Therapeutic interventions: Ensured contract for safety, maintained a safe and therapeutic environment, provided clear and simple instructions, monitored behaviors and need for intervention, encouraged independent performance of ADLs, monitored V/S and any s/s of SOB, and maintained Q 15 min safety checks. Restraints/seclusion/emergency medication: N/A Justification of Continued Inpatient Treatment: Pt. continues to require a safe and supportive environment, and remains GD r/t mental health. He is LPS conserved and awaiting I[facility] placement.
[2019-11-25 06:43] LABS: BASOPHILS % (AUTO) 0.5 % (0-1); EOSINOPHILS # (AUTO) 0.2 X10'3 (0-0.9); EOSINOPHILS % (AUTO) 2.3 % (0-6); HEMATOCRIT 41.2 % (42.0-52.0); HEMOGLOBIN 14.2 g/dl (14.0-17.9); LYMPHOCYTES # (AUTO) 2.2 X10'3 (1.1-4.8); LYMPHOCYTES % (AUTO) 30.1 % (21-51); MEAN CORPUSCULAR HEMOGLOBIN 27.9 PG (27.0-31.0); MEAN CORPUSCULAR HGB CONC 34.4 g/dL (33.0-36.5); MEAN CORPUSCULAR VOLUME 81.3 FL (78-98); MEAN PLATELET VOLUME 8.1 FL (7.4-10.4); MONOCYTES # (AUTO) 0.7 X10'3 (0-0.9); NEUTROPHILS # (AUTO) 4.3 X10'3 (1.8-7.7); NEUTROPHILS % (AUTO) 58.1 % (42-75); PLATELET COUNT 212 X10'3 (140-440); RED BLOOD COUNT 5.06 X10'6 (4.70-6.10); RED CELL DISTRIBUTION WIDTH 14.3 % (11.5-14.5); WHITE BLOOD COUNT 7.4 X10'3 (4.5-11.0)
[2019-11-25 07:40] VITALS: BP 104/58
[2019-11-25] MEDS: docusate sod 100mg capsule PO SCH ×2 (07:57→20:39)
[2019-11-25] MEDS: pantoprazole 40mg Tablet.DR PO SCH (07:58)
[2019-11-25] MEDS: sennosides 8.6mg tablet PO SCH ×2 (07:58→20:39)
[2019-11-25] MEDS: benztropine 1mg tablet PO SCH ×2 (07:58→20:40)
[2019-11-25] MEDS: propranolol 10mg tablet PO SCH ×3 (07:58→20:39)
[2019-11-25] MEDS: nicotine 14mg patch - 24hr TD SCH (08:00)
[2019-11-25] MEDS: clozapine 100mg tablet PO SCH ×2 (13:23→20:40)
[2019-11-25] MEDS: clozapine 25mg tablet PO SCH (13:23)
--- NOTE | 2019-11-25 15:22 | NUR ---
Nursing Progress Note: Legal hold: LPS Client on involuntary status for GD Report received from Dee GOULD with use of SBAR Why are they here: Patient had been discharged previously with follow up at [facility] Team. Upon assessment by the [facility], it was determined patient was not able to obtain, food, mcfp, or clothing and a 5150 for GD was written. Patient returned within hours of discharge. At time of return patient denied any symptoms related to his mental illness diagnosis of Schizophrenia. He continues to present with cognitive impairment which impedes his ability to care of himself, and requires multiple supports and external structures. Assessment What has happened this shift: Pt up and visible on the unit. Pt interacting appropriately with staff and peers. Pt has bright affect and denies depression and suicidal ideation. Pt went on off unit patio walk, appropriate behavior. Pt denies a/v hallucinations. S/I, H/I: Pt denies A/VH: Pt denies Sleep: No napping today. ADL's: Independent Group attendance: N/A Were meds taken: Yes Any med S/E: None noted nor reported Mental Status Exam Appearance: Clean, Appropriate, wearing nonskid socks, shoes without laces, and personal attire Eye contact: Good Behavior: Pleasant, cooperative Speech: Clear, audible, minimal Mood: Good Affect: Appropriate Thought process: Poverty of thought, Linear Thought Content: Concerned his acne is coming back Cognition: A/O X 4 Insight: Poor Judgment: Fair Interventions PRN's used: None Therapeutic interventions: 1:1 assessment, encouraged pt to express thoughts and feelings, active listening, therapeutic conversation, medication administration/education/monitoring, encouragement to perform personal hygiene/skin care, behavior monitoring, Q 15 min safety checks. Restraints/seclusion/emergency medication: N/A Justification of Continued Inpatient Treatment: Pt continues to require a safe and supportive environment, and remains GD r/t mental health. He is LPS conserved and awaiting placement.
[2019-11-25] MEDS: NICOTINE POLACRILEX 2 MG LOZENGE BC PRN (18:11)
[2019-11-25 20:22] VITALS: BP 122/77
[2019-11-25] MEDS: atorvastatin 10mg tablet PO SCH (20:39)
--- NOTE | 2019-11-25 21:18 | NUR ---
Nursing Progress Note: Legal hold: LPS Client on involuntary status for GD Report received from Dominique GOULD with use of SBAR Why are they here: Patient had been discharged previously with follow up at [facility] Team. Upon assessment by the [facility], it was determined patient was not able to obtain, food, half-way, or clothing and a 5150 for GD was written. Patient returned within hours of discharge. At time of return patient denied any symptoms related to his mental illness diagnosis of Schizophrenia. He continues to present with cognitive impairment which impedes his ability to care of himself, and requires multiple supports and external structures. Assessment What has happened this shift: Pt up and visible on the unit. Pt interacting appropriately with staff and peers. Pt has bright affect and denies depression and suicidal ideation. Pt in rec room watching tv with peers and charging his ankle monitor. Pt denies a/v hallucinations. S/I, H/I: Pt denies A/VH: Pt denies Sleep: No napping today. ADL's: Independent Group attendance: N/A Were meds taken: Yes Any med S/E: None noted nor reported Mental Status Exam Appearance: Clean, Appropriate, wearing nonskid socks, shoes without laces, and personal attire Eye contact: Good Behavior: Pleasant, cooperative Speech: Clear, audible, minimal Mood: Good Affect: Appropriate Thought process: Poverty of thought, Linear Thought Content: Concerned his acne is coming back Cognition: A/O X 4 Insight: Poor Judgment: Fair Interventions PRN's used: None Therapeutic interventions: 1:1 assessment, encouraged pt to express thoughts and feelings, active listening, therapeutic conversation, medication administration/education/monitoring, encouragement to perform personal hygiene/skin care, behavior monitoring, Q 15 min safety checks. Restraints/seclusion/emergency medication: N/A Justification of Continued Inpatient Treatment: Pt continues to require a safe and supportive environment, and remains GD r/t mental health. He is LPS conserved and awaiting placement.
[2019-11-25] MEDS: LORazepam 1 MG tablet PO PRN (21:59)
[2019-11-26] MEDS: docusate sod 100mg capsule PO SCH ×2 (07:58→20:27)
[2019-11-26] MEDS: sennosides 8.6mg tablet PO SCH ×2 (07:58→20:27)
[2019-11-26] MEDS: nicotine 14mg patch - 24hr TD SCH (07:58)
[2019-11-26] MEDS: pantoprazole 40mg Tablet.DR PO SCH (07:58)
[2019-11-26] MEDS: benztropine 1mg tablet PO SCH ×2 (07:58→20:26)
[2019-11-26] MEDS: propranolol 10mg tablet PO SCH ×3 (07:59→20:27)
[2019-11-26 08:00] VITALS: BP 129/66
[2019-11-26] MEDS: clozapine 100mg tablet PO SCH ×2 (13:46→20:29)
[2019-11-26] MEDS: clozapine 25mg tablet PO SCH (13:46)
--- NOTE | 2019-11-26 16:27 | NUR ---
Nursing Progress Note: Legal hold: LPS Client on involuntary status for GD Report received from Dee GOULD with use of SBAR Why are they here: Patient had been discharged previously with follow up at [facility]. Upon assessment by the [facility], it was determined patient was not able to obtain, food, intermediate, or clothing and a 5150 for GD was written. Patient returned within hours of discharge. At time of return patient denied any symptoms related to his mental illness diagnosis of Schizophrenia. He continues to present with cognitive impairment which impedes his ability to care of himself, and requires multiple supports and external structures. Assessment What has happened this shift: Pt awake for breakfast; up and visible on the unit. Pt interacting appropriately with staff and peers. Pt has bright affect and denies depression and suicidal ideation. Pt more isolative after breakfast and napped in his room until lunch. After lunch, pt sat up in dayroom and watched a movie. Pt denies a/v hallucinations. No evidence of responding to internal stimuli today. S/I, H/I: Pt denies A/VH: Pt denies Sleep: No napping today. ADL's: Independent Group attendance: N/A Were meds taken: Yes Any med S/E: None noted nor reported Mental Status Exam Appearance: Clean, Appropriate, wearing nonskid socks, shoes without laces, and personal attire Eye contact: Good Behavior: Pleasant, cooperative Speech: Clear, audible, minimal Mood: Good Affect: Appropriate Thought process: Poverty of thought, Linear Thought Content: Concerned his acne is coming back Cognition: A/O X 4 Insight: Poor Judgment: Fair Interventions PRN's used: None Therapeutic interventions: 1:1 assessment, encouraged pt to express thoughts and feelings, active listening, therapeutic conversation, medication administration/education/monitoring, encouragement to perform personal hygiene/skin care, behavior monitoring, Q 15 min safety checks. Restraints/seclusion/emergency medication: N/A Justification of Continued Inpatient Treatment: Pt continues to require a safe and supportive environment, and remains GD r/t mental health. He is LPS conserved and awaiting placement.
[2019-11-26 20:00] VITALS: BP 131/85
[2019-11-26] MEDS: atorvastatin 10mg tablet PO SCH (20:27)
[2019-11-26 20:51] VITALS: BP 131/85
--- NOTE | 2019-11-26 21:26 | NUR ---
Nursing Progress Note: Legal hold: LPS Client on involuntary status for GD Report received from Dominique GOULD with use of SBAR Why are they here: Patient had been discharged previously with follow up at [facility] Team. Upon assessment by the [facility], it was determined patient was not able to obtain, food, chcf, or clothing and a 5150 for GD was written. Patient returned within hours of discharge. At time of return patient denied any symptoms related to his mental illness diagnosis of Schizophrenia. He continues to present with cognitive impairment which impedes his ability to care of himself, and requires multiple supports and external structures. Assessment What has happened this shift: Pt awake up and visible on the unit. Pt interacting appropriately with staff and peers. Pt has bright affect and denies depression and suicidal ideation. Pt denies a/v hallucinations. No evidence of responding to internal stimuli today. S/I, H/I: Pt denies A/VH: Pt denies Sleep: No napping today. ADL's: Independent Group attendance: N/A Were meds taken: Yes Any med S/E: None noted nor reported Mental Status Exam Appearance: Clean, Appropriate, wearing nonskid socks, shoes without laces, and personal attire Eye contact: Good Behavior: Pleasant, cooperative Speech: Clear, audible, minimal Mood: Good Affect: Appropriate Thought process: Poverty of thought, Linear Thought Content: Concerned his acne is coming back Cognition: A/O X 4 Insight: Poor Judgment: Fair Interventions PRN's used: None Therapeutic interventions: 1:1 assessment, encouraged pt to express thoughts and feelings, active listening, therapeutic conversation, medication administration/education/monitoring, encouragement to perform personal hygiene/skin care, behavior monitoring, Q 15 min safety checks. Restraints/seclusion/emergency medication: N/A Justification of Continued Inpatient Treatment: Pt continues to require a safe and supportive environment, and remains GD r/t mental health. He is LPS conserved and awaiting placement.
[2019-11-26] MEDS: acetaminophen 325mg tablet PO PRN (21:55)
[2019-11-26] MEDS: LORazepam 1 MG tablet PO PRN (21:56)
[2019-11-27] MEDS: pantoprazole 40mg Tablet.DR PO SCH (07:51)
[2019-11-27] MEDS: sennosides 8.6mg tablet PO SCH ×2 (07:51→20:27)
[2019-11-27] MEDS: nicotine 14mg patch - 24hr TD SCH (07:52)
[2019-11-27] MEDS: propranolol 10mg tablet PO SCH ×3 (07:52→20:28)
[2019-11-27] MEDS: docusate sod 100mg capsule PO SCH ×2 (07:52→20:27)
[2019-11-27] MEDS: benztropine 1mg tablet PO SCH ×2 (07:52→20:27)
[2019-11-27 07:53] VITALS: BP 96/65
[2019-11-27] MEDS: clozapine 100mg tablet PO SCH ×2 (13:15→20:29)
[2019-11-27] MEDS: clozapine 25mg tablet PO SCH (13:15)
--- NOTE | 2019-11-27 14:45 | NUR ---
Nursing Progress Note: Legal hold: LPS Client on involuntary status for GD Report received from RN with use of SBAR Why are they here: Patient had been discharged previously with follow up at [facility]. Upon assessment by the [facility], it was determined patient was not able to obtain, food, chcf, or clothing and a 5150 for GD was written. Patient returned within hours of discharge. At time of return patient denied any symptoms related to his mental illness diagnosis of Schizophrenia. He continues to present with cognitive impairment which impedes his ability to care of himself, and requires multiple supports and external structures. Assessment What has happened this shift: Received Pt in bed sleeping w/o distress at change of shift. Pt woke for AM meds and ate breakfast in his room. Calm and cooperative and tolerated assessments well. He returned to bed for a nap and walked halls and talked with others a bit. Pt overall isolative but friendly when approached. Denies A/VH and denies SI/HI. Did not see Pt talking to himself today. Spent time watching TV in afternoon. S/I, H/I: Pt denies A/VH: Pt denies Sleep: Took naps ADL's: Independent Group attendance: N/A Were meds taken: Yes Any med S/E: None noted nor reported Mental Status Exam Appearance: Casual in own clothes Eye contact: Good Behavior: Pleasant, cooperative Speech: Clear, coherent short responses Mood: Euthymic Affect: Appropriate Thought process: Poverty of thought, Linear Thought Content: Concerned about flu Cognition: A/O X 4 Insight: Poor Judgment: Fair Interventions PRN's used: None Therapeutic interventions: 1:1 assessment, encouraged pt to express thoughts and feelings, active listening, therapeutic conversation, medication administration/education/ monitoring, encouragement to perform personal hygiene/skin care, behavior monitoring, Q 15 min safety checks. Restraints/seclusion/emergency medication: N/A Justification of Continued Inpatient Treatment: Pt continues to require a safe and supportive environment, and remains GD r/t mental health. He is LPS conserved and awaiting placement.
[2019-11-27 20:26] VITALS: BP 123/75
[2019-11-27] MEDS: atorvastatin 10mg tablet PO SCH (20:27)
--- NOTE | 2019-11-27 21:21 | NUR ---
Nursing Progress Note: Legal hold: LPS Client on involuntary status for GD Report received from Dominique GOULD with use of SBAR Why are they here: Patient had been discharged previously with follow up at [facility] Team. Upon assessment by the [facility], it was determined patient was not able to obtain, food, [place] [facility], or clothing and a 5150 for GD was written. Patient returned within hours of discharge. At time of return patient denied any symptoms related to his mental illness diagnosis of Schizophrenia. He continues to present with cognitive impairment which impedes his ability to care of himself, and requires multiple supports and external structures. Assessment What has happened this shift: Pt in community room watching tv at change of shift. Calm and cooperative and tolerated assessments well. He walked halls and talked with others a bit. Pt overall isolative but friendly when approached. Denies A/VH and denies SI/HI. Did see Pt talking to himself today. Spent time watching TV in evening. S/I, H/I: Pt denies A/VH: Pt denies Sleep: Took naps ADL's: Independent Group attendance: N/A Were meds taken: Yes Any med S/E: None noted nor reported Mental Status Exam Appearance: Casual in own clothes Eye contact: Good Behavior: Pleasant, cooperative Speech: Clear, coherent short responses Mood: Euthymic Affect: Appropriate Thought process: Poverty of thought, Linear Thought Content: Concerned about flu Cognition: A/O X 4 Insight: Poor Judgment: Fair Interventions PRN's used: None Therapeutic interventions: 1:1 assessment, encouraged pt to express thoughts and feelings, active listening, therapeutic conversation, medication administration/education/ monitoring, encouragement to perform personal hygiene/skin care, behavior monitoring, Q 15 min safety checks. Restraints/seclusion/emergency medication: N/A Justification of Continued Inpatient Treatment: Pt continues to require a safe and supportive environment, and remains GD r/t mental health. He is LPS conserved and awaiting placement.
[2019-11-27] MEDS: LORazepam 1 MG tablet PO PRN (22:01)
[2019-11-27] MEDS: acetaminophen 325mg tablet PO PRN (22:01)
[2019-11-28 07:55] VITALS: BP 131/63
[2019-11-28] MEDS: benztropine 1mg tablet PO SCH ×2 (08:22→20:29)
[2019-11-28] MEDS: propranolol 10mg tablet PO SCH ×3 (08:22→21:00)
[2019-11-28] MEDS: pantoprazole 40mg Tablet.DR PO SCH (08:22)
[2019-11-28] MEDS: docusate sod 100mg capsule PO SCH ×2 (08:22→20:29)
[2019-11-28] MEDS: sennosides 8.6mg tablet PO SCH ×2 (08:22→20:29)
[2019-11-28] MEDS: nicotine 14mg patch - 24hr TD SCH (08:23)
--- NOTE | 2019-11-28 10:49 | NUR ---
Reassessment: Pt continues with 75-100% PO intake meeting nutrient needs. LBM 11/26. No nutrition intervention warranted at this time. Will continue to follow. Rec: 1. continue heart healthy diet 2. Double eggs q breakfast, double meat BIDLD; extra fruits/vegetables on meal trays; salad BIDLD all per diet order 3. routine bowel care 4. wt per rx Addendum: 11/28/19 at [address] Amended: Links added.
[2019-11-28] MEDS: clozapine 25mg tablet PO SCH (13:18)
[2019-11-28] MEDS: clozapine 100mg tablet PO SCH ×2 (13:18→20:31)
--- NOTE | 2019-11-28 18:47 | NUR ---
Nursing Progress Note: Legal hold: LPS Client on involuntary status for GD Report received from LUIS FERNANDO Guerrero with use of SBAR Why are they here: Patient had been discharged previously with follow up at [facility] Team. Upon assessment by the [facility], it was determined patient was not able to obtain, food, long-term, or clothing and a 5150 for GD was written. Patient returned within hours of discharge. At time of return patient denied any symptoms related to his mental illness diagnosis of Schizophrenia. He continues to present with cognitive impairment which impedes his ability to care of himself, and requires multiple supports and external structures. Assessment What has happened this shift: Received patient after breakfast. Patient is pleasant and cooperative and takes his medications as ordered. He is bright and smiling and is seen watching movies in the day room. He denies SI/HI/A/VH and does not seem to be responding to internal stimuli. S/I, H/I: Pt denies A/VH: Pt denies Sleep: Took naps intermittently ADL's: Independent Group attendance: N/A Were meds taken: Yes Any med S/E: None noted nor reported Mental Status Exam Appearance: Casual in own clothes and hat Eye contact: Good Behavior: Pleasant, cooperative Speech: Clear, coherent short responses Mood: Euthymic Affect: Appropriate, bright Thought process: Poverty of thought, Linear Thought Content: wants to watch TV Cognition: A/O X 4 Insight: Poor Judgment: Fair Interventions PRN's used: None Therapeutic interventions: 1:1 assessment, encouraged pt to express thoughts and feelings, active listening, therapeutic conversation, medication administration/education/ monitoring, encouragement to perform personal hygiene/skin care, behavior monitoring, Q 15 min safety checks. Restraints/seclusion/emergency medication: N/A Justification of Continued Inpatient Treatment: Pt continues to require a safe and supportive environment, and remains GD r/t mental health. He is LPS conserved and awaiting placement.
[2019-11-28 20:00] VITALS: BP 129/81
[2019-11-28] MEDS: atorvastatin 10mg tablet PO SCH (20:29)
[2019-11-28 21:04] VITALS: BP 129/81
--- NOTE | 2019-11-28 21:34 | NUR ---
Nursing Progress Note: Legal hold: LPS Client on involuntary status for GD Report received from LUIS FERNANDO Peraza with use of SBAR Why are they here: Patient had been discharged previously with follow up at [facility]. Upon assessment by the [facility], it was determined patient was not able to obtain, food, [place] [facility], or clothing and a 5150 for GD was written. Patient returned within hours of discharge. At time of return patient denied any symptoms related to his mental illness diagnosis of Schizophrenia. He continues to present with cognitive impairment which impedes his ability to care of himself, and requires multiple supports and external structures. Assessment What has happened this shift: Patient is pleasant and cooperative and takes his medications as ordered. He is bright and smiling and is seen watching movies in the day room. He denies SI/HI/A/VH and does not seem to be responding to internal stimuli. S/I, H/I: Pt denies A/VH: Pt denies Sleep: Took naps intermittently ADL's: Independent Group attendance: N/A Were meds taken: Yes Any med S/E: None noted nor reported Mental Status Exam Appearance: Casual in own clothes and hat Eye contact: Good Behavior: Pleasant, cooperative Speech: Clear, coherent short responses Mood: Euthymic Affect: Appropriate, bright Thought process: Poverty of thought, Linear Thought Content: wants to watch TV Cognition: A/O X 4 Insight: Poor Judgment: Fair Interventions PRN's used: None Therapeutic interventions: 1:1 assessment, encouraged pt to express thoughts and feelings, active listening, therapeutic conversation, medication administration/education/ monitoring, encouragement to perform personal hygiene/skin care, behavior monitoring, Q 15 min safety checks. Restraints/seclusion/emergency medication: N/A Justification of Continued Inpatient Treatment: Pt continues to require a safe and supportive environment, and remains GD r/t mental health. He is LPS conserved and awaiting placement.
[2019-11-29] MEDS: nicotine 14mg patch - 24hr TD SCH (08:06)
[2019-11-29] MEDS: propranolol 10mg tablet PO SCH ×3 (08:07→20:24)
[2019-11-29] MEDS: pantoprazole 40mg Tablet.DR PO SCH (08:07)
[2019-11-29] MEDS: sennosides 8.6mg tablet PO SCH ×2 (08:07→20:23)
[2019-11-29] MEDS: docusate sod 100mg capsule PO SCH ×2 (08:07→20:23)
[2019-11-29] MEDS: benztropine 1mg tablet PO SCH ×2 (08:07→20:24)
[2019-11-29 08:48] VITALS: BP 110/59
[2019-11-29] MEDS: clozapine 25mg tablet PO SCH (14:02)
[2019-11-29] MEDS: clozapine 100mg tablet PO SCH ×2 (14:02→20:24)
--- NOTE | 2019-11-29 17:54 | NUR ---
Nursing Progress Note: Legal hold: LPS Client on involuntary status for GD Report received from KERMIT Guerrero with use of SBAR Why are they here: Patient had been discharged previously with follow up at [facility] Team. Upon assessment by the [facility], it was determined patient was not able to obtain, food, long-term, or clothing and a 5150 for GD was written. Patient returned within hours of discharge. At time of return patient denied any symptoms related to his mental illness diagnosis of Schizophrenia. He continues to present with cognitive impairment which impedes his ability to care of himself, and requires multiple supports and external structures. Assessment What has happened this shift: Patient attends breakfast and is pleasant and cheerful. Takes medications, and naps off and on through the day. He stated today that he felt like a snapping turtle was at his feet. RN questioned what he meant and he laughed. He watched funniest videos on tv. S/I, H/I: Denies A/VH: Denies Sleep: 7.5 per noc assessment ADL's: Independent , needs encouragement Group attendance: No groups at this time Were meds taken: Yes Any med S/E: None noted nor reported Mental Status Exam Appearance: Wearing his own shirt and shorts. Eye contact: Good Behavior: Smiles, pleasant. Cooperative. Speech: WNL Mood: Good Affect: Congruent to mood Thought process: Poverty of thought, Linear Thought Content: wants to watch TV Cognition: A/O X 4 Insight: Poor Judgment: Fair Interventions PRN's used: None Therapeutic interventions: 1:1 assessment, encouraged pt to express thoughts and feelings, active listening, therapeutic conversation, medication administration/education/ monitoring, encouragement to perform personal hygiene/skin care, behavior monitoring, Q 15 min safety checks. Restraints/seclusion/emergency medication: N/A Justification of Continued Inpatient Treatment: Pt continues to require a safe and supportive environment, and remains GD r/t mental health. He is LPS conserved and awaiting placement.
[2019-11-29] MEDS: atorvastatin 10mg tablet PO SCH (20:23)
[2019-11-29 20:39] VITALS: BP 126/77
--- NOTE | 2019-11-30 03:00 | NUR ---
Nursing Progress Note: Legal hold: LPS Client on involuntary status for GD Report received from KERMIT Nielson with use of SBAR Why are they here: Patient had been discharged previously with follow up at [facility] Team. Upon assessment by the [facility], it was determined patient was not able to obtain, food, longterm, or clothing and a 5150 for GD was written. Patient returned within hours of discharge. At time of return patient denied any symptoms related to his mental illness diagnosis of Schizophrenia. He continues to present with cognitive impairment which impedes his ability to care of himself, and requires multiple supports and external structures. Assessment What has happened this shift: Pt watching TV most of the shift, choosing [employer] as his evening movie. "It's cool, I like it." During assessment, pt is his jovial self, making a few jokes and laughing. Denies as s/sx. He requested some candy from the office but otherwise behavior is stable. Pt had minimal requests this evening, and retired to sleep once his evening moving selection had finished. S/I, H/I: Denies both A/VH: Denies both Sleep: See Sleep Assessment ADL's: Independent, needs encouragement Group attendance: N/A Were meds taken: Yes Any med S/E: None noted nor reported Mental Status Exam Appearance: Appropriate wearing personal clothing and nonskid socks with shoes without laces Eye contact: Good Behavior: Smiles, pleasant. Cooperative. Speech: Clear Mood: Good Affect: Congruent to mood Thought process: Poverty of thought, Linear Thought Content: wants to watch TV Cognition: A/Ox4 Insight: Poor Judgment: Fair Interventions PRN's used: None Therapeutic interventions: 1:1 assessment, encouraged pt to express thoughts and feelings, active listening, therapeutic conversation, medication administration/education/ monitoring, encouragement to perform personal hygiene/skin care, behavior monitoring, Q 15 min safety checks. Restraints/seclusion/emergency medication: N/A Justification of Continued Inpatient Treatment: Pt continues to require a safe and supportive environment, and remains GD r/t mental health. He is LPS conserved and awaiting placement.
[2019-11-30 08:11] VITALS: BP 104/58
[2019-11-30] MEDS: nicotine 14mg patch - 24hr TD SCH (08:25)
[2019-11-30] MEDS: sennosides 8.6mg tablet PO SCH ×2 (08:25→20:52)
[2019-11-30] MEDS: docusate sod 100mg capsule PO SCH ×2 (08:25→20:52)
[2019-11-30] MEDS: benztropine 1mg tablet PO SCH ×2 (08:25→20:52)
[2019-11-30] MEDS: pantoprazole 40mg Tablet.DR PO SCH (08:25)
[2019-11-30] MEDS: propranolol 10mg tablet PO SCH ×3 (08:26→20:51)
[2019-11-30] MEDS: clozapine 25mg tablet PO SCH (13:36)
[2019-11-30] MEDS: clozapine 100mg tablet PO SCH ×2 (13:36→20:51)
--- NOTE | 2019-11-30 15:36 | NUR ---
NURSING PROGRESS NOTE Legal hold: LPS Client on involuntary status for GD Report received from KERMIT Guerrero with use of SBAR Why are they here: Patient had been discharged previously with follow up at [facility]. Upon assessment by the [facility], it was determined patient was not able to obtain, food, fpc, or clothing and a 5150 for GD was written. Patient returned within hours of discharge. At time of return patient denied any symptoms related to his mental illness diagnosis of Schizophrenia. He continues to present with cognitive impairment which impedes his ability to care of himself, and requires multiple supports and external structures. Assessment What has happened this shift: Slept in as always drowsy in morning, ate, took morning nap, then up on unit the rest of day. Watching TV and entertaining himself. Denies AH's today. States, "I just waiting to leave." S/I, H/I: Denies A/VH: Denies Sleep: napped ADL's: Independent , needs encouragement Group attendance: No groups today Were meds taken: Yes Any med S/E: None noted nor reported Mental Status Exam Appearance: Neat and clean Eye contact: Good Behavior: Smiles, pleasant. Cooperative. Speech: Clear Mood: Bored Affect: Smiling Thought process: Poverty of thought Thought Content: thinking about discharge Cognition: A/O X 4 Insight: Fair Judgment: Fair Interventions PRN's used: None Therapeutic interventions: 1:1 assessment, encouraged pt to express thoughts and feelings, active listening, therapeutic conversation, medication administration/education/ monitoring, encouragement to perform personal hygiene/skin care, behavior monitoring, Q 15 min safety checks. Restraints/seclusion/emergency medication: N/A Justification of Continued Inpatient Treatment: Pt continues to require a safe and supportive environment, and remains GD r/t mental health. He is LPS conserved and awaiting placement.
[2019-11-30] MEDS: acetaminophen 325mg tablet PO PRN (19:57)
[2019-11-30 20:03] VITALS: BP 124/68
[2019-11-30] MEDS: atorvastatin 10mg tablet PO SCH (20:52)
--- NOTE | 2019-12-01 00:27 | NUR ---
Nursing Progress Note: Legal hold: LPS Client on involuntary status for GD Report received from KERMIT Martinez with use of SBAR Why are they here: Patient had been discharged previously with follow up at [facility] Team. Upon assessment by the [facility], it was determined patient was not able to obtain, food, residential, or clothing and a 5150 for GD was written. Patient returned within hours of discharge. At time of return patient denied any symptoms related to his mental illness diagnosis of Schizophrenia. He continues to present with cognitive impairment which impedes his ability to care of himself, and requires multiple supports and external structures. Assessment What has happened this shift: Pt was in his room sleeping during shift change. Pt came up to this assembly instructions writer and requested a Tylenol for his headache. This was given with good effect. He states that he is excited because he is now 8th on the list for placement. He spent some time in TV room watching TV. Pt asked this assembly instructions writer about exercising and states that he is a little concern that he might be overweight. This RN provided some education. Pt denies any AV/H and did not make any delusional statements. He was pleasant and cooperative as always. He states that it has been good and hasnt been having any hallucinations lately. "I would usually see things popping out of the jacobson but not right now." Nicotine patch removed. Pt continued to watch TV for a little while before returning to bed. S/I, H/I: Denies A/VH: Denies, not in a while Sleep: Currently sleeping, see sleep assessment for total hours ADL's: Independent, needs encouragement Group attendance: N/A Were meds taken: Yes Any med S/E: None noted nor reported Mental Status Exam Appearance: Appropriate, wearing personal clothing Eye contact: Good Behavior: Calm, cooperative, friendly Speech: Clear Mood: Excited about his placement, happy Affect: Congruent to mood Thought process: Linear Thought Content: Being placed, ways he can exercise, his weight Cognition: A/Ox4 Insight: Poor Judgment: Fair Interventions PRN's used: None Therapeutic interventions: 1:1 assessment, encouraged pt to express thoughts and feelings, active listening, therapeutic conversation, medication administration/education/ monitoring, encouragement to perform personal hygiene/skin care, behavior monitoring, Q 15 min safety checks. Restraints/seclusion/emergency medication: N/A Justification of Continued Inpatient Treatment: Pt continues to require a safe and supportive environment, and remains GD r/t mental health. He is LPS conserved and awaiting placement.
[2019-12-01 07:22] VITALS: BP 110/62
[2019-12-01] MEDS: sennosides 8.6mg tablet PO SCH ×2 (07:56→21:07)
[2019-12-01] MEDS: nicotine 14mg patch - 24hr TD SCH (07:57)
[2019-12-01] MEDS: pantoprazole 40mg Tablet.DR PO SCH (07:57)
[2019-12-01] MEDS: propranolol 10mg tablet PO SCH ×3 (07:57→21:07)
[2019-12-01] MEDS: benztropine 1mg tablet PO SCH ×2 (07:57→21:07)
[2019-12-01] MEDS: docusate sod 100mg capsule PO SCH ×2 (07:57→21:07)
[2019-12-01 08:54] LABS: BASOPHILS % (AUTO) 0.7 % (0-1); EOSINOPHILS # (AUTO) 0.2 X10'3 (0-0.9); EOSINOPHILS % (AUTO) 2.4 % (0-6); HEMATOCRIT 43.1 % (42.0-52.0); HEMOGLOBIN 14.4 g/dl (14.0-17.9); LYMPHOCYTES # (AUTO) 1.8 X10'3 (1.1-4.8); LYMPHOCYTES % (AUTO) 28.4 % (21-51); MEAN CORPUSCULAR HEMOGLOBIN 27.5 PG (27.0-31.0); MEAN CORPUSCULAR HGB CONC 33.3 g/dL (33.0-36.5); MEAN CORPUSCULAR VOLUME 82.4 FL (78-98); MEAN PLATELET VOLUME 8.5 FL (7.4-10.4); MONOCYTES # (AUTO) 0.6 X10'3 (0-0.9); MONOCYTES % (AUTO) 9.7 % (2-12); NEUTROPHILS # (AUTO) 3.8 X10'3 (1.8-7.7); NEUTROPHILS % (AUTO) 58.8 % (42-75); PLATELET COUNT 205 X10'3 (140-440); RED BLOOD COUNT 5.23 X10'6 (4.70-6.10); RED CELL DISTRIBUTION WIDTH 14.6 % (11.5-14.5); WHITE BLOOD COUNT 6.4 X10'3 (4.5-11.0)
[2019-12-01] MEDS: calcium carbonate 500mg chew tablet PO PRN (11:27)
[2019-12-01 12:50] VITALS: BP 126/91
[2019-12-01] MEDS: clozapine 100mg tablet PO SCH ×2 (14:24→21:07)
[2019-12-01] MEDS: clozapine 25mg tablet PO SCH (14:25)
--- NOTE | 2019-12-01 15:47 | NUR ---
NURSING PROGRESS NOTE Legal hold: LPS Client on involuntary status for GD Report received from KERMIT Beaver with use of SBAR Why are they here: Pt admitted on a 5150 for GD. Patient had been discharged previously with follow up at [facility] Team. Upon assessment by the [facility] [place], it was determined patient was not able to obtain, food, alf, or clothing. Patient returned within hours of discharge. At time of return patient denied any symptoms related to his mental illness diagnosis of Schizophrenia. Assessment What has happened this shift: Pt sleeping at the change of shift. He was compliant with medication administration and cooperative with the assessment. He readily smiles and responds appropriately to questions. He reports he slept well. He denies depression, anxiety, SI, HI, and A/V H. He spent much of the day watching TV in the recreation room. Tums were administered which relieved his indigestion. S/I, H/I: Denies A/VH: Denies Sleep: Napped ADL's: Independent , with prompting Group attendance: No groups today Were meds taken: Yes Any med S/E: None reported or observed Mental Status Exam Appearance: Dressed in scrubs, neat and clean Eye contact: Direct Behavior: Cooperative and friendly Speech: Normal rate and rhythm Mood: Euthymic Affect: Euthymic Thought process: Poverty of Thought Thought Content: Minimal conversation, unable to determine thought content Cognition: A/O X 4 Insight: Fair Judgment: Fair Interventions PRN's used: Calcium Carbonate (Tums) Therapeutic interventions: 1:1 assessment, encouraged pt to express thoughts and feelings, active listening, therapeutic conversation, medication administration/education/ monitoring, encouragement to perform personal hygiene/skin care, behavior monitoring, Q 15 min safety checks. Restraints/seclusion/emergency medication: N/A Justification of Continued Inpatient Treatment: Pt continues to require a safe and supportive environment, and remains GD r/t mental health. He is LPS conserved and awaiting placement.
[2019-12-01 19:35] VITALS: BP 117/76
[2019-12-01] MEDS: atorvastatin 10mg tablet PO SCH (21:07)
[2019-12-01] MEDS: LORazepam 1 MG tablet PO PRN (21:53)
--- NOTE | 2019-12-01 23:36 | NUR ---
Nursing Progress Note: Legal hold: LPS Client on involuntary status for GD Report received from KERMIT Martinez with use of SBAR Why are they here: Patient had been discharged previously with follow up at [facility] Team. Upon assessment by the [facility], it was determined patient was not able to obtain, food, residential, or clothing and a 5150 for GD was written. Patient returned within hours of discharge. At time of return patient denied any symptoms related to his mental illness diagnosis of Schizophrenia. He continues to present with cognitive impairment which impedes his ability to care of himself, and requires multiple supports and external structures. Assessment What has happened this shift: Pt was in TV room during shift change. He greets this newswriter with a smile and states he is doing good. Pt had snack in the TV room. He was cooperative during 1:1 physical assessment and took all his HS meds. Pt states that he is excited about going to [place] in [place] and asks this newswriter if I have been there before. When asked if he was having any hallucinations, he pauses and looks around, and then states with a smile, no, I see you. He refuses to have his nicotine patch removed and also requested Ativan prior to going to sleep. Pt continues to pace the isles for a little while and at this time he does appear to be responding to internal stimuli as he laughs and appears to be having a conversation with someone. S/I, H/I: Denies A/VH: Denies Sleep: Currently sleeping, see sleep assessment for total hours ADL's: Independent, needs encouragement Group attendance: N/A Were meds taken: Yes Any med S/E: None noted nor reported Mental Status Exam Appearance: Appropriate, wearing personal clothing Eye contact: Good Behavior: Calm, cooperative, friendly Speech: Clear Mood: "Good", pt appears to be in good spirits Affect: Congruent to mood Thought process: Linear Thought Content: Going to [place] in [place], watching TV Cognition: A/Ox4 Insight: Poor Judgment: Fair Interventions PRN's used: Ativan X1 Therapeutic interventions: 1:1 assessment, encouraged pt to express thoughts and feelings, active listening, therapeutic conversation, medication administration/education/ monitoring, encouragement to perform personal hygiene/skin care, behavior monitoring, Q 15 min safety checks. Restraints/seclusion/emergency medication: N/A Justification of Continued Inpatient Treatment: Pt continues to require a safe and supportive environment, and remains GD r/t mental health. He is LPS conserved and awaiting placement.
[2019-12-02] MEDS: pantoprazole 40mg Tablet.DR PO SCH (07:56)
[2019-12-02] MEDS: nicotine 14mg patch - 24hr TD SCH (07:56)
[2019-12-02] MEDS: docusate sod 100mg capsule PO SCH ×2 (07:57→20:51)
[2019-12-02] MEDS: propranolol 10mg tablet PO SCH ×3 (07:57→20:51)
[2019-12-02] MEDS: benztropine 1mg tablet PO SCH ×2 (07:57→20:51)
[2019-12-02] MEDS: sennosides 8.6mg tablet PO SCH ×2 (07:57→20:51)
[2019-12-02 08:51] VITALS: BP 114/60
[2019-12-02] MEDS: clozapine 100mg tablet PO SCH ×2 (13:04→20:51)
[2019-12-02] MEDS: clozapine 25mg tablet PO SCH (13:04)
--- NOTE | 2019-12-02 16:54 | NUR ---
Nursing Progress Note: Legal hold: LPS Client on involuntary status for GD Report received from RN with use of SBAR Why are they here: Patient had been discharged previously with follow up at [facility] Team. [place] [facility] was determined patient was not able to obtain, food, nursing home, or clothing and a 5150 for GD was written. Patient returned within hours of discharge. At time of return patient denied any symptoms related to his mental illness diagnosis of Schizophrenia. He continues to present with cognitive impairment which impedes his ability to care of himself, and requires multiple supports and external structures. Assessment What has happened this shift: Received Pt in bed sleeping w/o distress at change of shift. Woke Pt for AM meds and he ate breakfast in his room. Calm and cooperative and tolerated assessments well. He returned to bed for a nap and watched movies in community room by self and with others that would join him. He played video games for a bit and said it was fun. alked halls and talked with others a bit. Pt tends to isolate but will engage in short conversation if approached. He is respectful of staff and others. Denies A/VH and denies SI/HI. Did not see Pt responding to internal stimuli today. S/I, H/I: Pt denies A/VH: Pt denies Sleep: Took nap in AM ADL's: Independent Group attendance: N/A Were meds taken: Yes Any med S/E: None noted nor reported Mental Status Exam Appearance: Casual in own clothes Eye contact: Good Behavior: Pleasant, cooperative Speech: Clear, coherent short responses Mood: Euthymic Affect: Appropriate Thought process: Poverty of thought, Linear Thought Content: Entertainment Cognition: A/O X 4 Insight: Poor Judgment: Fair Interventions PRN's used: None Therapeutic interventions: 1:1 assessment, encouraged pt to express thoughts and feelings, active listening, therapeutic conversation, medication administration/education/ monitoring, encouragement to perform personal hygiene/skin care, behavior monitoring, Q 15 min safety checks. Restraints/seclusion/emergency medication: N/A Justification of Continued Inpatient Treatment: Pt continues to require a safe and supportive environment, and remains GD r/t mental health. He is LPS conserved and awaiting placement.
[2019-12-02 19:40] VITALS: BP 119/71
[2019-12-02] MEDS: atorvastatin 10mg tablet PO SCH (20:51)
[2019-12-02] MEDS: LORazepam 1 MG tablet PO PRN (23:04)
--- NOTE | 2019-12-03 00:24 | NUR ---
deonte Progress Note: Legal hold: LPS Client on involuntary status for GD Report received from KERMIT Martinez with use of SBAR Why are they here: Patient had been discharged previously with follow up at [facility] Team. Upon assessment by the [facility] [place], it was determined patient was not able to obtain, food, senior care, or clothing and a 5150 for GD was written. Patient returned within hours of discharge. At time of return patient denied any symptoms related to his mental illness diagnosis of Schizophrenia. He continues to present with cognitive impairment which impedes his ability to care of himself, and requires multiple supports and external structures. Assessment What has happened this shift: Pt was in tv room during shift change. When asked how his day had been, he states it was awesome because I got to see movies all day. Pt spent some more time watching movies in recreation room. He was cooperative during 1:1 physical assessment ant took all his meds without any issues. Denies any AV/H and did not appear to be responding to any internal stimuli. Pt continues to behave appropriately as he socializes with other patients in the unit. He requests Ativan prior to going to sleep. S/I, H/I: Denies A/VH: Denies Sleep: Currently sleeping, see sleep assessment for total hours ADL's: Independent, needs encouragement Group attendance: N/A Were meds taken: Yes Any med S/E: None noted nor reported Mental Status Exam Appearance: Appropriate, wearing personal clothing Eye contact: Good Behavior: Calm, cooperative, friendly, joking Speech: Clear Mood: Happy Affect: Bright Thought process: Linear Thought Content: Discharge, whatever he is watching on TV Cognition: A/Ox4 Insight: Poor Judgment: Fair Interventions PRN's used: Ativan X1 Therapeutic interventions: 1:1 assessment, encouraged pt to express thoughts and feelings, active listening, therapeutic conversation, medication administration/education/ monitoring, encouragement to perform personal hygiene/skin care, behavior monitoring, Q 15 min safety checks. Restraints/seclusion/emergency medication: N/A Justification of Continued Inpatient Treatment: Pt continues to require a safe and supportive environment, and remains GD r/t mental health. He is LPS conserved and awaiting placement.
[2019-12-03 07:32] VITALS: BP 130/67
[2019-12-03] MEDS: nicotine 14mg patch - 24hr TD SCH (08:11)
[2019-12-03] MEDS: sennosides 8.6mg tablet PO SCH ×2 (08:12→21:06)
[2019-12-03] MEDS: pantoprazole 40mg Tablet.DR PO SCH (08:12)
[2019-12-03] MEDS: benztropine 1mg tablet PO SCH ×2 (08:12→21:06)
[2019-12-03] MEDS: propranolol 10mg tablet PO SCH ×3 (08:12→21:09)
[2019-12-03] MEDS: docusate sod 100mg capsule PO SCH ×2 (08:12→21:06)
[2019-12-03] MEDS: clozapine 25mg tablet PO SCH (13:32)
[2019-12-03] MEDS: clozapine 100mg tablet PO SCH ×2 (13:32→21:07)
--- NOTE | 2019-12-03 14:41 | NUR ---
Nursing Progress Note: Legal hold: LPS Client on involuntary status for GD Report received from RN with use of SBAR Why are they here: Patient had been discharged previously with follow up at [facility] Team. Upon assessment by the [facility] [place], it was determined patient was not able to obtain, food, halfway, or clothing and a 5150 for GD was written. Patient returned within hours of discharge. At time of return patient denied any symptoms related to his mental illness diagnosis of Schizophrenia. He continues to present with cognitive impairment which impedes his ability to care of himself, and requires multiple supports and external structures. Assessment What has happened this shift: Patient sleeping at change of shift and up for breakfast. Patient takes medication as prescribed. No complaints. Patient denies Suicidal/Homicidal ideation. Patient denies A/V hallucinations. Patient social and watching a movie in the Community Room. Patient is pending IMD. S/I, H/I: Pt denies A/VH: Pt denies Sleep: Took a couple of naps today. ADL's: Independent Group attendance: N/A Were meds taken: Yes Any med S/E: None noted nor reported Mental Status Exam Appearance: Casual in own clothes Eye contact: Good Behavior: Pleasant, cooperative Speech: Clear, coherent short responses Mood: Euthymic Affect: Appropriate Thought process: Poverty of thought, Linear Thought Content: Entertainment Cognition: A/O X 4 Insight: Poor Judgment: Fair Interventions PRN's used: None Therapeutic interventions: 1:1 assessment, encouraged pt to express thoughts and feelings, active listening, therapeutic conversation, medication administration/education/ monitoring, encouragement to perform personal hygiene/skin care, behavior monitoring, Q 15 min safety checks. Restraints/seclusion/emergency medication: N/A Justification of Continued Inpatient Treatment: Pt continues to require a safe and supportive environment, and remains GD r/t mental health. He is LPS conserved and awaiting placement.
[2019-12-03] MEDS: acetaminophen 325mg tablet PO PRN (15:22)
[2019-12-03 19:11] VITALS: BP 129/90
[2019-12-03] MEDS: atorvastatin 10mg tablet PO SCH (21:07)
[2019-12-03] MEDS: LORazepam 1 MG tablet PO PRN (22:02)
--- NOTE | 2019-12-04 01:52 | NUR ---
Nursing Progress Note: Legal hold: LPS Client on involuntary status for GD Report received from RN with use of SBAR Why are they here: Patient had been discharged previously with follow up at [facility] Team. Upon assessment by the [facility], it was determined patient was not able to obtain, food, senior living, or clothing and a 5150 for GD was written. Patient returned within hours of discharge. At time of return patient denied any symptoms related to his mental illness diagnosis of Schizophrenia. He continues to present with cognitive impairment which impedes his ability to care of himself, and requires multiple supports and external structures. Assessment What has happened this shift: Pt up and active on unit. Smiles laughs easily. Interacts with staff and other pts. Watched a movie in group room. Took all medications cooperative with care. Pt charged ankle bracelet in group room with supervision. Pt said he was not hearing voices today but did hear them yesterday. "It's weird how they come and go" S/I, H/I: Pt denies A/VH: Pt denies Sleep: Asleep at this time ADL's: Independent Group attendance: N/A Were meds taken: Yes Any med S/E: None noted nor reported Mental Status Exam Appearance: Casual in own clothes Eye contact: Good Behavior: Pleasant, cooperative Speech: Clear, coherent short responses Mood: Euthymic Affect: Appropriate Thought process: Poverty of thought, Linear Thought Content: Entertainment Cognition: A/O X 4 Insight: Poor Judgment: Fair Interventions PRN's used: None Therapeutic interventions: 1:1 assessment, encouraged pt to express thoughts and feelings, active listening, therapeutic conversation, medication administration/education/ monitoring, encouragement to perform personal hygiene/skin care, behavior monitoring, Q 15 min safety checks. Restraints/seclusion/emergency medication: N/A Justification of Continued Inpatient Treatment: Pt continues to require a safe and supportive environment, and remains GD r/t mental health. He is LPS conserved and awaiting placement.
[2019-12-04 07:22] VITALS: BP 109/64
[2019-12-04] MEDS: docusate sod 100mg capsule PO SCH ×2 (07:59→20:42)
[2019-12-04] MEDS: benztropine 1mg tablet PO SCH ×2 (07:59→20:42)
[2019-12-04] MEDS: propranolol 10mg tablet PO SCH ×3 (08:00→20:42)
[2019-12-04] MEDS: sennosides 8.6mg tablet PO SCH ×2 (08:00→20:42)
[2019-12-04] MEDS: pantoprazole 40mg Tablet.DR PO SCH (08:00)
[2019-12-04] MEDS: nicotine 14mg patch - 24hr TD SCH (08:00)
[2019-12-04] MEDS: clozapine 25mg tablet PO SCH (13:13)
[2019-12-04] MEDS: clozapine 100mg tablet PO SCH ×2 (13:13→20:41)
--- NOTE | 2019-12-04 14:16 | NUR ---
Nursing Progress Note: Legal hold: LPS Client on involuntary status for GD Report received from RN with use of SBAR Why are they here: Patient had been discharged previously with follow up at [facility] Access Team. Upon assessment by the [facility], it was determined patient was not able to obtain, food, penitentiary, or clothing and a 5150 for GD was written. Patient returned within hours of discharge. At time of return patient denied any symptoms related to his mental illness diagnosis of Schizophrenia. He continues to present with cognitive impairment which impedes his ability to care of himself, and requires multiple supports and external structures. Assessment What has happened this shift: Received Pt in bed sleeping w/o distress at change of shift. He woke Pt for AM meds, which he took w/o issue, and he ate breakfast in his room. Pt calm, cooperative and respectful of staff. He tolerated assessments well and napped after breakfast and lunch. He was walking halls and spent some time in community room and then returned to his room. Pt not responding to internal stimuli and mood is euthymic when not isolating. He denies SI or HI and remains pleasant and redirectable. S/I, H/I: Pt denies A/VH: Pt denies Sleep: Took naps in Morn and Afternoon ADL's: Independent Group attendance: N/A Were meds taken: Yes Any med S/E: None noted nor reported Mental Status Exam Appearance: Casual in own clothes Eye contact: Good Behavior: Pleasant, cooperative Speech: Clear, coherent short responses Mood: Euthymic Affect: Appropriate Thought process: Poverty of thought, Linear Thought Content: Entertainment Cognition: A/O X 4 Insight: Poor Judgment: Fair Interventions PRN's used: None Therapeutic interventions: 1:1 assessment, encouraged pt to express thoughts and feelings, active listening, therapeutic conversation, medication administration/education/ monitoring, encouragement to perform personal hygiene/skin care, behavior monitoring, Q 15 min safety checks. Restraints/seclusion/emergency medication: N/A Justification of Continued Inpatient Treatment: Pt continues to require a safe and supportive environment, and remains GD r/t mental health. He is LPS conserved and awaiting placement.
--- NOTE | 2019-12-04 16:48 | NUR ---
Placement Presenting Issues: Pt's waiting for new placement. Interventions: SS had t/c with [facility] office to get updates re placement services/activities for pt. Per t/c pt's been accepted @ [facility] pending a medical review there. [facility]'s office requested documentation re pt's completion of treatment for influenza. Current MD & nursing notes faxed to [facility]I's office. Packet faxed. Plan: SS will continue to engage [facility]'s office in dcp activities to facilitate placement services. Shirin Carlos LCSW Addendum: 12/04/19 at 1652 by Shirin Carlos Amended: Links added.
[2019-12-04 20:39] VITALS: BP 134/88
[2019-12-04] MEDS: atorvastatin 10mg tablet PO SCH (20:42)
[2019-12-04] MEDS: LORazepam 1 MG tablet PO PRN (22:19)
--- NOTE | 2019-12-04 23:20 | NUR ---
Nursing Progress Note: Legal hold: LPS Client on involuntary status for GD Report received from RN with use of SBAR Why are they here: Patient had been discharged previously with follow up at [facility]. Upon assessment by the [facility] [place], it was determined patient was not able to obtain, food, halfway, or clothing and a 5150 for GD was written. Patient returned within hours of discharge. At time of return patient denied any symptoms related to his mental illness diagnosis of Schizophrenia. He continues to present with cognitive impairment which impedes his ability to care of himself, and requires multiple supports and external structures. Assessment What has happened this shift: Pt up and active on unit. Observed Speaking and gesturing responding to internal stimuli while walking in halls. Later pt denied that he heard voices but offered no explanation why he was talking in jama. Interacts with staff and other pts. Watched a movie in group room. Took all medications cooperative with care. Pt charged ankle bracelet in group room with supervision. S/I, H/I: Pt denies A/VH: Pt denies Sleep: Asleep at this time ADL's: Independent Group attendance: N/A Were meds taken: Yes Any med S/E: None noted nor reported Mental Status Exam Appearance: Casual in own clothes Eye contact: Good Behavior: Pleasant, cooperative Speech: Clear, coherent short responses Mood: Euthymic Affect: Appropriate Thought process: Poverty of thought, Linear Thought Content: Entertainment Cognition: A/O X 4 Insight: Poor Judgment: Fair Interventions PRN's used: None Therapeutic interventions: 1:1 assessment, encouraged pt to express thoughts and feelings, active listening, therapeutic conversation, medication administration/education/ monitoring, encouragement to perform personal hygiene/skin care, behavior monitoring, Q 15 min safety checks. Restraints/seclusion/emergency medication: N/A Justification of Continued Inpatient Treatment: Pt continues to require a safe and supportive environment, and remains GD r/t mental health. He is LPS conserved and awaiting placement.
[2019-12-05] MEDS: docusate sod 100mg capsule PO SCH ×2 (08:08→19:59)
[2019-12-05] MEDS: pantoprazole 40mg Tablet.DR PO SCH (08:08)
[2019-12-05] MEDS: propranolol 10mg tablet PO SCH ×3 (08:08→20:01)
[2019-12-05] MEDS: sennosides 8.6mg tablet PO SCH ×2 (08:08→19:59)
[2019-12-05] MEDS: nicotine 14mg patch - 24hr TD SCH (08:08)
[2019-12-05] MEDS: benztropine 1mg tablet PO SCH ×2 (08:08→19:59)
[2019-12-05 08:54] VITALS: BP 109/60
--- NOTE | 2019-12-05 11:55 | NUR ---
Reassessment: Pt PO 100% avg meals receiving double proteins meeting needs. LBM 11/30 receiving routine colace and senna; RD d/w RN to clarify if true constipation since documented as formed stools each day in EMR. No nutrition concerns at this time. Will continue to monitor. Rec: 1. continue heart healthy diet 2. Double eggs q breakfast, double meat BIDLD; extra fruits/vegetables on meal trays; salad BIDLD all per diet order 3. routine bowel care 4. wt per rx Addendum: 12/05/19 at [address] Amended: Links added.
[2019-12-05] MEDS: clozapine 25mg tablet PO SCH (14:19)
[2019-12-05] MEDS: clozapine 100mg tablet PO SCH ×2 (14:20→20:00)
--- NOTE | 2019-12-05 17:41 | NUR ---
Nursing Progress Note: Legal hold: LPS Client on involuntary status for GD Report received from Yolanda GOULD with use of SBAR Why are they here: Patient had been discharged previously with follow up at [facility] Team. Upon assessment by the [facility] [place], it was determined patient was not able to obtain, food, retirement, or clothing and a 5150 for GD was written. Patient returned within hours of discharge. At time of return patient denied any symptoms related to his mental illness diagnosis of Schizophrenia. He continues to present with cognitive impairment which impedes his ability to care of himself, and requires multiple supports and external structures. Assessment What has happened this shift: Pt. asleep at start of shift. Pt. took medications and ate his breakfast in his room. Pt. went back to sleep and slept until around 1100. 1:1 done at bedside. Pt. denies SI/HI, A/V hallucinations. Pt. reports he is in a good mood. Pt. up watching TV in recreation room. Pt. seen socializing with peers. Pt. reports he is still on a waiting list for his board and care. S/I, H/I: Pt denies A/VH: Pt denies Sleep: Pt. slept most of the AM ADL's: Independent Group attendance: N/A Were meds taken: Yes Any med S/E: Denies. None observed Mental Status Exam Appearance: Casual in own clothes Eye contact: Good Behavior: Pleasant, cooperative Speech: Clear, coherent, minimal responses Mood: Euthymic Affect: Appropriate Thought process: Poverty of thought, Linear Thought Content: Watching movies Cognition: A/O X 4 Insight: Poor Judgment: Fair Interventions PRN's used: None Therapeutic interventions: 1:1 assessment, encouraged pt to express thoughts and feelings, active listening, therapeutic conversation, medication administration/education/ monitoring, encouragement to perform personal hygiene/skin care, behavior monitoring, Q 15 min safety checks. Restraints/seclusion/emergency medication: N/A Justification of Continued Inpatient Treatment: Pt continues to require a safe and supportive environment, and remains GD r/t mental health. He is LPS conserved and awaiting placement.
[2019-12-05] MEDS: LORazepam 1 MG tablet PO PRN (18:05)
[2019-12-05] MEDS: atorvastatin 10mg tablet PO SCH (20:00)
[2019-12-05 20:32] VITALS: BP 166/93
--- NOTE | 2019-12-05 22:49 | NUR ---
Nursing Progress Note: Legal hold: LPS Client on involuntary status for GD Report received from RN with use of SBAR Why are they here: Patient had been discharged previously with follow up at [facility] Access Team. Upon assessment by the [facility], it was determined patient was not able to obtain, food, longterm, or clothing and a 5150 for GD was written. Patient returned within hours of discharge. At time of return patient denied any symptoms related to his mental illness diagnosis of Schizophrenia. He continues to present with cognitive impairment which impedes his ability to care of himself, and requires multiple supports and external structures. Assessment What has happened this shift: Pt was watching tv in the rec room with other pt's at change of shift. pt was seen socializing with others appropriately, laughing and conversing. Pt reported having a good day, and appeared to be in a good mood. pt denies si/hi and a/vh but was seen responding to internal stimuli prior to hs. pt requested ativan at 2130 but had already received it at 1800. Pt is happy to be going to a board and care facility. S/I, H/I: Pt denies A/VH: Pt denies Sleep: Asleep at this time ADL's: Independent Group attendance: N/A Were meds taken: Yes Any med S/E: None noted nor reported Mental Status Exam Appearance: in his own clothes, wearing a hat Eye contact: Good Behavior: Pleasant, cooperative Speech: Clear, coherent short responses Mood: Euthymic Affect: Appropriate Thought process: Linear Thought Content: Entertainment Cognition: A/O X 4 Insight: Poor Judgment: Fair Interventions PRN's used: None Therapeutic interventions: 1:1 assessment, encouraged pt to express thoughts and feelings, active listening, therapeutic conversation, medication administration/education/ monitoring, encouragement to perform personal hygiene/skin care, behavior monitoring, Q 15 min safety checks. Restraints/seclusion/emergency medication: N/A Justification of Continued Inpatient Treatment: Pt continues to require a safe and supportive environment, and remains GD r/t mental health. He is LPS conserved and awaiting placement.
[2019-12-06 07:00] VITALS: BP 99/61
[2019-12-06 08:00] VITALS: BP 99/61
[2019-12-06] MEDS: nicotine 14mg patch - 24hr TD SCH ×2 (08:00→08:21)
[2019-12-06] MEDS: propranolol 10mg tablet PO SCH ×3 (08:00→21:14)
[2019-12-06] MEDS: benztropine 1mg tablet PO SCH ×2 (08:21→21:14)
[2019-12-06] MEDS: docusate sod 100mg capsule PO SCH ×2 (08:21→21:14)
[2019-12-06] MEDS: sennosides 8.6mg tablet PO SCH ×2 (08:21→21:14)
[2019-12-06] MEDS: pantoprazole 40mg Tablet.DR PO SCH (08:21)
[2019-12-06] MEDS: clozapine 25mg tablet PO SCH (14:27)
[2019-12-06] MEDS: clozapine 100mg tablet PO SCH ×2 (14:27→21:14)
--- NOTE | 2019-12-06 17:47 | NUR ---
Nursing Progress Note: Zachariah Legal hold: LPS Client on involuntary status for GD Report received from Yolanda GOULD with use of SBAR Why are they here: Patient had been discharged previously with follow up at [facility] Team. Upon assessment by the [facility], it was determined patient was not able to obtain, food, custodial, or clothing and a 5150 for GD was written. Patient returned within hours of discharge. At time of return patient denied any symptoms related to his mental illness diagnosis of Schizophrenia. He continues to present with cognitive impairment which impedes his ability to care of himself, and requires multiple supports and external structures. Assessment What has happened this shift: Patient sleeping at shift change. Patient awakens for breakfast and medications. He takes all medications without incident. He has been in the t.v. rooms engrossed in watching programs. He states that he is now number 7 on the wait list. S/I, H/I: Pt denies A/VH: Pt denies Sleep: Pt. slept most of the AM ADL's: Independent Group attendance: N/A Were meds taken: Yes Any med S/E: Denies. None observed Mental Status Exam Appearance: Clean and neat in personal attire. Eye contact: Good Behavior: Pleasant, cooperative Speech: Clear, coherent, minimal responses Mood: Euthymic Affect: Appropriate to mood. Thought process: Poverty of thought, Linear Thought Content: Watching movies Cognition: A/O X 4 Insight: Poor Judgment: Fair Interventions PRN's used: None Therapeutic interventions: 1:1 assessment, encouraged pt to express thoughts and feelings, active listening, therapeutic conversation, medication administration/education/ monitoring, encouragement to perform personal hygiene/skin care, behavior monitoring, Q 15 min safety checks. Restraints/seclusion/emergency medication: N/A Justification of Continued Inpatient Treatment: Pt continues to require a safe and supportive environment, and remains GD r/t mental health. He is LPS conserved and awaiting placement.
[2019-12-06 19:39] VITALS: BP 124/93
[2019-12-06] MEDS: atorvastatin 10mg tablet PO SCH (21:13)
[2019-12-06] MEDS: LORazepam 1 MG tablet PO PRN (23:10)
--- NOTE | 2019-12-06 23:12 | NUR ---
Nursing Progress Note: Legal hold: LPS Client on involuntary status for GD Report received from KERMIT Peraza with use of SBAR Why are they here: Patient had been discharged previously with follow up at [facility] Team. Upon assessment by the [facility], it was determined patient was not able to obtain, food, longterm, or clothing and a 5150 for GD was written. Patient returned within hours of discharge. At time of return patient denied any symptoms related to his mental illness diagnosis of Schizophrenia. He continues to present with cognitive impairment which impedes his ability to care of himself, and requires multiple supports and external structures. Assessment What has happened this shift: pt was observed in TV room during shift change. He walks up to the nurses station and tells one of the nurse psychedelic mushrooms. He then just walked to his room and took a nap. Pt spent some time in the recreation room watching TV. He was cooperative during 1:1 physical assessment and took all his HS meds without any issues. He randomly states to this RN they should allow Xanax in here. When asked why he believes this he states because its a good drug. Pt denies any anxiety or depression, AV/H but did appear to be responding to some internal stimuli. He states that he spend most of the day watching movies and also talked to his social worker assistant and doctor. He stayed up until about 2300 watching TV and charging his monitor. Pt requested Ativan before going to sleep. S/I, H/I: Pt denies A/VH: Pt denies, he was observed responding to internal stimuli Sleep: Pt has trouble falling asleep. See sleep assessment for total hours. ADL's: Independent Group attendance: N/A Were meds taken: Yes Any med S/E: None noted nor reported Mental Status Exam Appearance: Appropriate, wearing scrub pants and shirt Eye contact: Good Behavior: Pleasant, cooperative, friendly and sociable Speech: Clear, normal rate and rhythm, minimal Mood: Bored, nostalgic Affect: Appropriate Thought process: Circumstantial Thought Content: Focused on watching tv, placement Cognition: A/O X 4 Insight: Poor Judgment: Fair Interventions PRN's used: Ativan Therapeutic interventions: 1:1 assessment, encouraged pt to express thoughts and feelings, active listening, therapeutic conversation, medication administration/education/ monitoring, encouragement to perform personal hygiene/skin care, behavior monitoring, Q 15 min safety checks. Restraints/seclusion/emergency medication: N/A Justification of Continued Inpatient Treatment: Pt continues to require a safe and supportive environment, and remains GD r/t mental health. He is LPS conserved and awaiting placement.
[2019-12-07 07:51] VITALS: BP 106/70
[2019-12-07] MEDS: nicotine 14mg patch - 24hr TD SCH (08:00)
[2019-12-07] MEDS: propranolol 10mg tablet PO SCH ×3 (08:25→21:22)
[2019-12-07] MEDS: pantoprazole 40mg Tablet.DR PO SCH (08:25)
[2019-12-07] MEDS: sennosides 8.6mg tablet PO SCH ×2 (08:25→21:21)
[2019-12-07] MEDS: benztropine 1mg tablet PO SCH ×2 (08:25→21:21)
[2019-12-07] MEDS: docusate sod 100mg capsule PO SCH ×2 (08:25→21:21)
[2019-12-07] MEDS: clozapine 100mg tablet PO SCH ×2 (13:24→21:21)
[2019-12-07] MEDS: clozapine 25mg tablet PO SCH (13:24)
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
[2019-12-07 19:50] VITALS: BP 117/67
[2019-12-07] MEDS: atorvastatin 10mg tablet PO SCH (21:21)
[2019-12-07] MEDS: LORazepam 1 MG tablet PO PRN (22:56)
--- NOTE | 2019-12-07 23:23 | NUR ---
Nursing Progress Note: Legal hold: LPS Client on involuntary status for GD Report received from KERMIT Fox with use of SBAR Why are they here: Patient had been discharged previously with follow up at [facility] Team. Upon assessment by the [facility], it was determined patient was not able to obtain, food, nursing home, or clothing and a 5150 for GD was written. Patient returned within hours of discharge. At time of return patient denied any symptoms related to his mental illness diagnosis of Schizophrenia. He continues to present with cognitive impairment which impedes his ability to care of himself, and requires multiple supports and external structures. Assessment What has happened this shift: Pt was walking the isles during shift change. Greeted this engineering writer with a smile. Pt was cooperative during 1:1 physical assessment and took all his meds without any issues. Pt states that he had a pretty good day but does report being bored. Pt denies any AV/H and did not make any delusional statements. When asked about depression or anxiety, he admits to feeling a little bit anxious. Did not appear to be responding to any internal stimuli. Pt continued to watch TV for a while and before going to sleep he requested Ativan. When asked pt why he thought he needed this he states It helps me sleep because I feel short of breath and also if I dont take it, I start seeing things. After this was given pt went to sleep. S/I, H/I: Pt denies A/VH: Pt denies Sleep: Currently sleeping, see sleep assessment for total hours ADL's: Independent Group attendance: N/A Were meds taken: Yes Any med S/E: None noted nor reported Mental Status Exam Appearance: Appropriate, wearing scrub pants and shirt Eye contact: Good Behavior: Pleasant, cooperative, calm Speech: Clear, normal rate and rhythm, minimal Mood: "Good" Affect: Blunted Thought process: Circumstantial Thought Content: Getting more snacks, placement Cognition: A/O X 4 Insight: Poor Judgment: Fair Interventions PRN's used: Ativan Therapeutic interventions: 1:1 assessment, encouraged pt to express thoughts and feelings, active listening, therapeutic conversation, medication administration/education/ monitoring, encouragement to perform personal hygiene/skin care, behavior monitoring, Q 15 min safety checks. Restraints/seclusion/emergency medication: N/A Justification of Continued Inpatient Treatment: Pt continues to require a safe and supportive environment, and remains GD r/t mental health. He is LPS conserved and awaiting placement.
[2019-12-08 06:25] LABS: BASOPHILS % (AUTO) 0.7 % (0-1); EOSINOPHILS # (AUTO) 0.1 X10'3 (0-0.9); EOSINOPHILS % (AUTO) 1.9 % (0-6); HEMATOCRIT 43.2 % (42.0-52.0); HEMOGLOBIN 14.5 g/dl (14.0-17.9); LYMPHOCYTES # (AUTO) 2.2 X10'3 (1.1-4.8); LYMPHOCYTES % (AUTO) 32.1 % (21-51); MEAN CORPUSCULAR HEMOGLOBIN 27.8 PG (27.0-31.0); MEAN CORPUSCULAR HGB CONC 33.5 g/dL (33.0-36.5); MEAN CORPUSCULAR VOLUME 83.1 FL (78-98); MEAN PLATELET VOLUME 8.2 FL (7.4-10.4); MONOCYTES # (AUTO) 0.6 X10'3 (0-0.9); MONOCYTES % (AUTO) 9.3 % (2-12); NEUTROPHILS # (AUTO) 3.8 X10'3 (1.8-7.7); PLATELET COUNT 177 X10'3 (140-440); RED CELL DISTRIBUTION WIDTH 14.8 % (11.5-14.5); WHITE BLOOD COUNT 6.8 X10'3 (4.5-11.0)
[2019-12-08 07:44] VITALS: BP 115/67
[2019-12-08] MEDS: docusate sod 100mg capsule PO SCH ×2 (07:48→20:42)
[2019-12-08] MEDS: sennosides 8.6mg tablet PO SCH ×2 (07:48→20:42)
[2019-12-08] MEDS: pantoprazole 40mg Tablet.DR PO SCH (07:48)
[2019-12-08] MEDS: benztropine 1mg tablet PO SCH ×2 (07:48→20:42)
[2019-12-08] MEDS: propranolol 10mg tablet PO SCH ×3 (07:48→20:41)
[2019-12-08] MEDS: nicotine 14mg patch - 24hr TD SCH (07:49)
[2019-12-08] MEDS: clozapine 100mg tablet PO SCH ×2 (13:33→20:42)
[2019-12-08] MEDS: clozapine 25mg tablet PO SCH (13:33)
--- NOTE | 2019-12-08 14:11 | NUR ---
PLACEMENT Faxed MAR and recent labs to [facility] office for placement purposes. [facility] requested the records, however, they do not have any beds available currently. MATTHIEU Strange
--- NOTE | 2019-12-08 14:45 | NUR ---
Nursing Progress Note: Legal hold: LPS Client on involuntary status for GD Report received from KERMIT Sweet with use of SBAR Why are they here: Patient had been discharged previously with follow up at [facility] Team. Upon assessment by the [facility], it was determined patient was not able to obtain, food, half-way, or clothing and a 5150 for GD was written. Patient returned within hours of discharge. At time of return patient denied any symptoms related to his mental illness diagnosis of Schizophrenia. He continues to present with cognitive impairment which impedes his ability to care of himself, and requires multiple supports and external structures. Assessment What has happened this shift: Patient sleeping at change of shift. Compliant with medications, denies A/V hallucinations. Denies depression. Shows obvious frustration while awaiting placement. Talks about not understanding why he was brought back after previous discharge. States I didnt do anything wrong. Explained purpose of being conserved. I am just tired of waiting. Appropriate throughout shift with staff and others, displaying a comical sense of humor. Hoping to be DCd to [facility]. S/I, H/I: Pt denies A/VH: Pt denies Sleep: 6 hours ADL's: Independent, needs to shower Group attendance: no groups at this time Were meds taken: yes (declined nicotine patch) Any med S/E: None reported or observed Mental Status Exam Appearance: disheveled, wearing own clothes Eye contact: Direct Behavior: cooperative, withdrawn Speech: soft, calm Mood: good Affect: Congruent with mood Thought process: Linear Thought Content: waiting for placement Cognition: A & O X 4 Insight: Fair Judgment: Fair Interventions PRN's used: None Therapeutic interventions: 1:1 assessment, encouraged pt to express thoughts and feelings, active listening, therapeutic conversation, medication administration/education/ monitoring, encouragement to perform personal hygiene/skin care, behavior monitoring, Q 15 min safety checks. Restraints/seclusion/emergency medication: N/A Justification of Continued Inpatient Treatment: Pt continues to require a safe and supportive environment, and remains GD r/t mental health. He is LPS conserved and awaiting placement.
[2019-12-08 19:00] VITALS: BP 136/70
[2019-12-08] MEDS: atorvastatin 10mg tablet PO SCH (20:40)
--- NOTE | 2019-12-08 23:56 | NUR ---
Nursing Progress Note: Legal hold: LPS Client on involuntary status for GD Report received from LUIS FERNANDO Fox with use of SBAR Why are they here: Patient had been discharged previously with follow up at [facility] Team. Upon assessment by the [facility], it was determined patient was not able to obtain, food, halfway, or clothing and a 5150 for GD was written. Patient returned within hours of discharge. At time of return patient denied any symptoms related to his mental illness diagnosis of Schizophrenia. He continues to present with cognitive impairment which impedes his ability to care of himself, and requires multiple supports and external structures. Assessment What has happened this shift: Patient interacting with peers at shift change. Pt. is his usual pleasant self and greets this screen writer by name and a big smile. Pt. is calm and cooperative, no agitation observed this shift. Pt. verbalizes no somatic complaints, Pt. denies SI/HI, A/VH. Pt. denies tremors. Pt. voices continued boredom and c/o of how much weight he has gained, pt grabs his belly and states "Look at this." Pt. takes all medications without incident and retires to bed. Last WBC 6.8 on 12/07/19. S/I, H/I: Pt. denies, none observed. A/VH: Pt denies, none observed. Sleep: Currently sleeping, no PRN administered. See Sleep Assessment for total hours. 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 Were meds taken: Takes medication without incident. Any med S/E: None reported or observed. Mental Status Exam Appearance: Neat, clean, wearing own clothes. Eye contact: Good Behavior: Friendly, smiley, joking around Speech: Clear, normal rate and rhythm. Mood: See behavior Affect: Bright Thought process: Linear Thought Content: Placement- pt. ready to be discharged. Cognition: A/O X 4 Insight: Fair Judgment: Fair Interventions PRN's used: None Therapeutic interventions: 1:1 assessment, encouraged pt to express thoughts and feelings, active listening, therapeutic conversation, medication administration/education/ monitoring, Q 15 min safety checks. Restraints/seclusion/emergency medication: N/A Justification of Continued Inpatient Treatment: Pt continues to require a safe and supportive environment, and remains GD r/t mental health. He is LPS conserved and awaiting placement.
[2019-12-09 07:51] VITALS: BP 135/75
[2019-12-09] MEDS: nicotine 14mg patch - 24hr TD SCH (08:00)
[2019-12-09] MEDS: docusate sod 100mg capsule PO SCH ×2 (08:01→20:47)
[2019-12-09] MEDS: propranolol 10mg tablet PO SCH ×3 (08:01→20:47)
[2019-12-09] MEDS: benztropine 1mg tablet PO SCH ×2 (08:01→20:47)
[2019-12-09] MEDS: sennosides 8.6mg tablet PO SCH ×2 (08:01→20:47)
[2019-12-09] MEDS: pantoprazole 40mg Tablet.DR PO SCH (08:01)
[2019-12-09] MEDS: clozapine 100mg tablet PO SCH ×2 (14:41→20:47)
[2019-12-09] MEDS: clozapine 25mg tablet PO SCH (14:41)
--- NOTE | 2019-12-09 15:14 | NUR ---
Nursing Progress Note: [facility] Legal hold: LPS Client on involuntary status for GD Report received from KERMIT Sweet with use of SBAR Why are they here: Patient had been discharged previously with follow up at [facility] Team. Upon assessment by the [facility], it was determined patient was not able to obtain, food, senior care, or clothing and a 5150 for GD was written. Patient returned within hours of discharge. At time of return patient denied any symptoms related to his mental illness diagnosis of Schizophrenia. He continues to present with cognitive impairment which impedes his ability to care of himself, and requires multiple supports and external structures. Assessment What has happened this shift: Patient sleeping at change of shift. Awoke for breakfast. Per documentation patient has gained > 70lbs since admission. Observed patient to be congested, asked if he was feeling ill which he responded, no. Afebrile, VSS. Compliant with medications, reports no BM X 2 days. Denies A/V hallucinations, depression or delusions. Watching TV with others in the recreation room. Interacting appropriately with both staff and other patients. Patient reported he was doing jumping jacks I always have a lot of energy. Overheard talking with pt. Tech asking if he was anxious, patient responded I just thinking about my next steps, like when I get out of here S/I, H/I: Denies A/VH: Denies Sleep: 6.25 hours ADL's: Independent Group attendance: No current groups due to COVID 19 Were meds taken: yes Any med S/E: None Mental Status Exam Appearance: Neat, clean, wearing own clothes. Eye contact: Direct Behavior: Calm, quiet, cooperative Speech: Clear, normal rate and rhythm. Mood: euthymic Affect: Congruent with mood Thought process: Linear Thought Content: wanting to be discharged. Cognition: A/O X 4 Insight: Fair Judgment: Fair Interventions PRN's used: None Therapeutic interventions: 1:1 assessment, encouraged pt to express thoughts and feelings, active listening, therapeutic conversation, medication administration/education/ monitoring, Q 15 min safety checks. Restraints/seclusion/emergency medication: N/A Justification of Continued Inpatient Treatment: Pt continues to require a safe and supportive environment, and remains GD r/t mental health. He is LPS conserved and aw
[2019-12-09 19:00] VITALS: BP 131/87
[2019-12-09] MEDS: atorvastatin 10mg tablet PO SCH (20:47)
[2019-12-09] MEDS: LORazepam 1 MG tablet PO PRN (22:29)
--- NOTE | 2019-12-10 01:12 | NUR ---
Nursing Progress Note: Legal hold: LPS Client on involuntary status for GD Report received from LUIS FERNANDO Fox with use of SBAR Why are they here: Patient had been discharged previously with follow up at [facility] Team. Upon assessment by the [facility], it was determined patient was not able to obtain, food, retirement, or clothing and a 5150 for GD was written. Patient returned within hours of discharge. At time of return patient denied any symptoms related to his mental illness diagnosis of Schizophrenia. He continues to present with cognitive impairment which impedes his ability to care of himself, and requires multiple supports and external structures. Assessment What has happened this shift: Patient was in group room watching T.V at shift change. Pt. later is observed playing [employer]May[employer]ou with another patient and acting appropriately with staff and peers through out shift. Pt. is compliant with medications. Pt. requested an Ativan around 2200 then retired to bed. Pt. is currently sleeping, respirations even and unlabored. Last WBC 6.8 on 12/07/19. S/I, H/I: Pt. denies, none observed. A/VH: Pt denies, none observed. Sleep: Fell asleep without incident. See Sleep Assessment for total hours. 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 Were meds taken: Takes medication without incident. Any med S/E: None reported or observed. Mental Status Exam Appearance: Neat, clean, wearing own clothes. Eye contact: Good Behavior: Friendly, smiley, joking around Speech: Clear, normal rate and rhythm. Mood: See behavior Affect: Bright Thought process: Linear Thought Content: Placement- pt. ready to be discharged. Cognition: A/O X 4 Insight: Fair Judgment: Fair Interventions PRN's used: Ativan Therapeutic interventions: 1:1 assessment, encouraged pt to express thoughts and feelings, active listening, therapeutic conversation, medication administration/education/ monitoring, Q 15 min safety checks. Restraints/seclusion/emergency medication: N/A Justification of Continued Inpatient Treatment: Pt continues to require a safe and supportive environment, and remains GD r/t mental health. He is LPS conserved and awaiting placement.
[2019-12-10 07:41] VITALS: BP 118/61
[2019-12-10] MEDS: propranolol 10mg tablet PO SCH ×3 (08:14→20:34)
[2019-12-10] MEDS: docusate sod 100mg capsule PO SCH ×2 (08:14→20:33)
[2019-12-10] MEDS: benztropine 1mg tablet PO SCH ×2 (08:14→20:33)
[2019-12-10] MEDS: sennosides 8.6mg tablet PO SCH ×2 (08:14→20:33)
[2019-12-10] MEDS: pantoprazole 40mg Tablet.DR PO SCH (08:15)
[2019-12-10] MEDS: nicotine 7mg patch - 24hr TD SCH (08:15)
[2019-12-10] MEDS: clozapine 25mg tablet PO SCH (13:38)
[2019-12-10] MEDS: clozapine 100mg tablet PO SCH ×2 (13:38→20:35)
--- NOTE | 2019-12-10 16:32 | NUR ---
Nursing Progress Note: [facility] Legal hold: LPS Client on involuntary status for GD Report received from KERMIT Fox with use of SBAR Why are they here: Patient had been discharged previously with follow up at [facility] Team. Upon assessment by the [facility], it was determined patient was not able to obtain, food, nursing home, or clothing and a 5150 for GD was written. Patient returned within hours of discharge. At time of return patient denied any symptoms related to his mental illness diagnosis of Schizophrenia. He continues to present with cognitive impairment which impedes his ability to care of himself, and requires multiple supports and external structures. Assessment What has happened this shift: Patient was resting in bed peacefully at change of shift. He is pleasant and cooperative with care and takes his medications without incident. He is friendly and is seen socializing with peers and staff. Denies SI/HI, A/VH. He reports that he is "just waiting on placement". He reports he is "Okay with this". S/I, H/I: Denies A/VH: Denies Sleep: up the majority of the day. ADL's: Independent Group attendance: No current groups due to COVID 19 Were meds taken: yes Any med S/E: None Mental Status Exam Appearance: Neat, clean, wearing own shirt and green scrub pants. Eye contact: Direct Behavior: Calm, cooperative Speech: Clear, normal rate and rhythm. Mood: euthymic Affect: Congruent with mood Thought process: Linear Thought Content: wanting to be discharged. Cognition: A/O X 4 Insight: Fair Judgment: Fair Interventions PRN's used: None Therapeutic interventions: 1:1 assessment, encouraged pt to express thoughts and feelings, active listening, therapeutic conversation, medication administration/education/ monitoring, Q 15 min safety checks. Restraints/seclusion/emergency medication: N/A Justification of Continued Inpatient Treatment: Pt continues to require a safe and supportive environment, and remains GD r/t mental health. He is LPS conserved and aw
[2019-12-10] MEDS: acetaminophen 325mg tablet PO PRN (18:20)
[2019-12-10 20:00] VITALS: BP 116/77
[2019-12-10] MEDS: atorvastatin 10mg tablet PO SCH (20:33)
[2019-12-10] MEDS: LORazepam 1 MG tablet PO PRN (21:47)
--- NOTE | 2019-12-11 01:40 | NUR ---
Nursing Progress Note: [facility] Legal hold: LPS Client on involuntary status for GD Report received from KERMIT Fox with use of SBAR Why are they here: Patient had been discharged previously with follow up at [facility] Team. [place] the [facility] it was determined patient was not able to obtain, food, custodial, or clothing and a 5150 for GD was written. Patient returned within hours of discharge. At time of return patient denied any symptoms related to his mental illness diagnosis of Schizophrenia. He continues to present with cognitive impairment which impedes his ability to care of himself, and requires multiple supports and external structures. Assessment What has happened this shift: Patient was up in rec room watching tv with peers. Pt states I'm doing good just waiting for placement. Pt is med compliant and cooperative. S/I, H/I: Denies A/VH: Denies Sleep: up the majority of the day. ADL's: Independent Group attendance: No current groups due to COVID 19 Were meds taken: yes Any med S/E: None Mental Status Exam Appearance: Neat, clean, wearing own shirt and green scrub pants. Eye contact: Direct Behavior: Calm, cooperative Speech: Clear, normal rate and rhythm. Mood: euthymic Affect: Congruent with mood Thought process: Linear Thought Content: wanting to be discharged. Cognition: A/O X 4 Insight: Fair Judgment: Fair Interventions PRN's used: None Therapeutic interventions: 1:1 assessment, encouraged pt to express thoughts and feelings, active listening, therapeutic conversation, medication administration/education/ monitoring, Q 15 min safety checks. Restraints/seclusion/emergency medication: N/A Justification of Continued Inpatient Treatment: Pt continues to require a safe and supportive environment, and remains GD r/t mental health. He is LPS conserved and aw
[2019-12-11] MEDS: benztropine 1mg tablet PO SCH ×2 (07:44→20:26)
[2019-12-11] MEDS: docusate sod 100mg capsule PO SCH ×2 (07:44→20:26)
[2019-12-11] MEDS: propranolol 10mg tablet PO SCH ×3 (07:45→20:27)
[2019-12-11] MEDS: pantoprazole 40mg Tablet.DR PO SCH (07:45)
[2019-12-11] MEDS: sennosides 8.6mg tablet PO SCH ×2 (07:46→20:27)
[2019-12-11] MEDS: nicotine 7mg patch - 24hr TD SCH (07:48)
[2019-12-11 08:00] VITALS: BP 101/60
[2019-12-11] MEDS: clozapine 25mg tablet PO SCH (13:19)
[2019-12-11] MEDS: clozapine 100mg tablet PO SCH ×2 (13:19→20:28)
--- NOTE | 2019-12-11 17:42 | NUR ---
Nursing Progress Note: [facility] Legal hold: LPS Client on involuntary status for GD Report received from KERMIT Martinez with use of SBAR Why are they here: Patient had been discharged previously with follow up at [facility] Team. Upon assessment by the [facility], it was determined patient was not able to obtain, food, alf, or clothing and a 5150 for GD was written. Patient returned within hours of discharge. At time of return patient denied any symptoms related to his mental illness diagnosis of Schizophrenia. He continues to present with cognitive impairment which impedes his ability to care of himself, and requires multiple supports and external structures. Assessment What has happened this shift: Pt. asleep at start of shift. Pt. took medications and ate breakfast and went back to sleep. 1:1 done at bedside. Pt. denies SI/HI but report he was hearing voices yesterday. Pt. states, "they tell me to drum with my hands". RN asked pt. if he could push those voices away, pt. states, "Sometimes" RN asked pt. if the voices were loud, pt. states, "sometimes". Pt. seen in community room watching group movie. Pt. seen pacing in hallway. Pt. has a bright affect. RN asked pt. if he felt hopeful? Pt. replied, "I hope I get in a care home soon." S/I, H/I: Denies A/VH: denies currently but reports that yesterday voices were telling him to drum with his hands Sleep: Pt. napped for 2 hours in the AM. ADL's: Independent Group attendance: Pt. attended group movie in community room. Were meds taken: yes Any med S/E: Denies Mental Status Exam Appearance: Neat, clean, wearing street clothes Eye contact: Direct Behavior: Calm, cooperative Speech: Clear, normal rate and rhythm. Mood: euthymic Affect: Congruent with mood Thought process: Linear Thought Content: Hopeful for care home acceptance. Cognition: A/O X 4 Insight: Fair Judgment: Fair Interventions PRN's used: None Therapeutic interventions: 1:1 assessment, encouraged pt to express thoughts and feelings, active listening, therapeutic conversation, medication administration/education/ monitoring, Q 15 min safety checks. Restraints/seclusion/emergency medication: N/A Justification of Continued Inpatient Treatment: Pt continues to require a safe and supportive environment, and remains GD r/t mental health. He is LPS conserved
[2019-12-11 20:00] VITALS: BP 136/88
[2019-12-11] MEDS: atorvastatin 10mg tablet PO SCH (20:27)
[2019-12-11] MEDS: LORazepam 1 MG tablet PO PRN (22:12)
--- NOTE | 2019-12-12 01:24 | NUR ---
Nursing Progress Note: [facility] Legal hold: LPS Client on involuntary status for GD Report received from KERMIT Fox with use of SBAR Why are they here: Patient had been discharged previously with follow up at [facility] Team. Upon assessment by the [facility], it was determined patient was not able to obtain, food, halfway, or clothing and a 5150 for GD was written. Patient returned within hours of discharge. At time of return patient denied any symptoms related to his mental illness diagnosis of Schizophrenia. He continues to present with cognitive impairment which impedes his ability to care of himself, and requires multiple supports and external structures. Assessment What has happened this shift: Pt up and watching tv in community room. Pacing the jama and talking to him self at times. He states he is doing well and just waiting for placement. S/I, H/I: Denies A/VH: denies currently but reports that yesterday voices were telling him to drum with his hands Sleep: Pt. napped for 2 hours in the AM. ADL's: Independent Group attendance: Pt. attended group movie in community room. Were meds taken: yes Any med S/E: Denies Mental Status Exam Appearance: Neat, clean, wearing street clothes Eye contact: Direct Behavior: Calm, cooperative Speech: Clear, normal rate and rhythm. Mood: euthymic Affect: Congruent with mood Thought process: Linear Thought Content: Hopeful for [facility]pc acceptance. Cognition: A/O X 4 Insight: Fair Judgment: Fair Interventions PRN's used: Ativan Therapeutic interventions: 1:1 assessment, encouraged pt to express thoughts and feelings, active listening, therapeutic conversation, medication administration/education/ monitoring, Q 15 min safety checks. Restraints/seclusion/emergency medication: N/A Justification of Continued Inpatient Treatment: Pt continues to require a safe and supportive environment, and remains GD r/t mental health. He is LPS conserved
[2019-12-12] MEDS: docusate sod 100mg capsule PO SCH ×2 (07:39→20:35)
[2019-12-12] MEDS: pantoprazole 40mg Tablet.DR PO SCH (07:39)
[2019-12-12] MEDS: sennosides 8.6mg tablet PO SCH ×2 (07:39→20:35)
[2019-12-12] MEDS: benztropine 1mg tablet PO SCH ×2 (07:39→20:35)
[2019-12-12] MEDS: nicotine 7mg patch - 24hr TD SCH (07:41)
[2019-12-12 08:00] VITALS: BP 94/58
[2019-12-12] MEDS: propranolol 10mg tablet PO SCH ×3 (08:00→20:35)
--- NOTE | 2019-12-12 11:58 | NUR ---
Reassessment: Pt 100% avg meals meeting needs. LBM 12/10. No nutrition concerns at this time. Will continue to monitor. Rec: 1. continue heart healthy diet 2. Double eggs q breakfast, double meat BIDLD; extra fruits/vegetables on meal trays; salad BIDLD all per diet order 3. routine bowel care 4. wt per rx Addendum: 12/12/19 at [address] Amended: Links added.
[2019-12-12] MEDS: clozapine 25mg tablet PO SCH (13:49)
[2019-12-12] MEDS: clozapine 100mg tablet PO SCH ×2 (13:49→20:36)
[2019-12-12] MEDS: acetaminophen 325mg tablet PO PRN (13:55)
--- NOTE | 2019-12-12 17:28 | NUR ---
Nursing Progress Note: Legal hold: LPS Client on involuntary status for GD Report received from KERMIT Martinez with use of SBAR Why are they here: Patient had been discharged previously with follow up at [facility] Team. Upon assessment by the [facility], it was determined patient was not able to obtain, food, detention, or clothing and a 5150 for GD was written. Patient returned within hours of discharge. At time of return patient denied any symptoms related to his mental illness diagnosis of Schizophrenia. He continues to present with cognitive impairment which impedes his ability to care of himself, and requires multiple supports and external structures. Assessment What has happened this shift: Pt. asleep at start of shift. Pt. awoke for medications and breakfast. Pt. went back to sleep and slept until 11:00. 1:1 done at bedside. Pt. denies SI/HI, A/V hallucinations. Pt. talked at length about being adopted by his cousins, and then moving to [place] to get his GED, but instead he states, I partied all the time, drank alcohol, and got high. Pt. reports feeling regret at not finishing his schooling. RN encouraged pt. that he was still young and there were possibilities to finish his GED. Pt. reports desire to be in a residential. Pt. states, I may be here for another 2-3 months.Pt. has positive outlook, Im glad to be here. Pt. seen interacting with peers, smiling, and laughing. Pt. also paces halls at times. At times he appears to be responding to internal stimuli but pt. denies when asked. S/I, H/I: Denies A/VH: denies currently but reports that yesterday voices were telling him to drum with his hands Sleep: Pt. napped majority of the AM. ADL's: Independent Group attendance: Pt. attended group movie in community room. Were meds taken: Yes, except AM Inderal held due to low BP. Any med S/E: Denies Mental Status Exam Appearance: Neat, clean, wearing street clothes Eye contact: Direct Behavior: Calm, cooperative Speech: Clear, normal rate and rhythm. Mood: euthymic Affect: Congruent with mood Thought process: Linear Thought Content: Hopeful for residential acceptance. Cognition: A/O X 4 Insight: Fair Judgment: Fair Interventions PRN's used: None Therapeutic interventions: 1:1 assessment, encouraged pt to express thoughts and feelings, active listening, therapeutic conversation, medication administration/education/ monitoring, Q 15 min safety checks. Restraints/seclusion/emergency medication: N/A Justification of Continued Inpatient Treatment: Pt continues to require a safe and supportive environment, and remains GD r/t mental health. He is LPS conserved
[2019-12-12 20:25] VITALS: BP 117/84
[2019-12-12] MEDS: atorvastatin 10mg tablet PO SCH (20:34)
[2019-12-12] MEDS: LORazepam 1 MG tablet PO PRN (22:09)
--- NOTE | 2019-12-13 01:26 | NUR ---
Nursing Progress Note: Legal hold: LPS Client on involuntary status for GD Report received from KERMIT Fox with use of SBAR Why are they here: Patient had been discharged previously with follow up at [facility] Team. Upon assessment by the [facility], it was determined patient was not able to obtain, food, longterm, or clothing and a 5150 for GD was written. Patient returned within hours of discharge. At time of return patient denied any symptoms related to his mental illness diagnosis of Schizophrenia. He continues to present with cognitive impairment which impedes his ability to care of himself, and requires multiple supports and external structures. Assessment What has happened this shift: Patient was awake in the rec room watching Tv with peers. They were laughing and joking about what they where watching. No pacing or talking to him self noted this shift. Pt was pleasant and smiling whit peers. After snacks and meds pt went to bed. S/I, H/I: Denies A/VH: denies currently but reports that yesterday voices were telling him to drum with his hands Sleep: Slept most of shift. ADL's: Independent Group attendance: Pt. attended group movie in community room. Were meds taken: Yes, except AM Inderal held due to low BP. Any med S/E: Denies Mental Status Exam Appearance: Neat, clean, wearing street clothes Eye contact: Direct Behavior: Calm, cooperative Speech: Clear, normal rate and rhythm. Mood: euthymic Affect: Congruent with mood Thought process: Linear Thought Content: Hopeful for jail acceptance. Cognition: A/O X 4 Insight: Fair Judgment: Fair Interventions PRN's used: Ativan Therapeutic interventions: 1:1 assessment, encouraged pt to express thoughts and feelings, active listening, therapeutic conversation, medication administration/education/ monitoring, Q 15 min safety checks. Restraints/seclusion/emergency medication: N/A Justification of Continued Inpatient Treatment: Pt continues to require a safe and supportive environment, and remains GD r/t mental health. He is LPS conserved
[2019-12-13 07:30] VITALS: BP 140/84
[2019-12-13] MEDS: pantoprazole 40mg Tablet.DR PO SCH (07:52)
[2019-12-13] MEDS: sennosides 8.6mg tablet PO SCH ×2 (07:52→20:07)
[2019-12-13] MEDS: docusate sod 100mg capsule PO SCH ×2 (07:53→20:07)
[2019-12-13] MEDS: benztropine 1mg tablet PO SCH ×2 (07:53→20:08)
[2019-12-13] MEDS: nicotine 7mg patch - 24hr TD SCH (07:55)
[2019-12-13] MEDS: propranolol 10mg tablet PO SCH ×3 (08:32→20:09)
[2019-12-13] MEDS: clozapine 25mg tablet PO SCH (13:48)
[2019-12-13] MEDS: clozapine 100mg tablet PO SCH ×2 (13:48→20:08)
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
[2019-12-13] MEDS: NICOTINE POLACRILEX 2 MG LOZENGE BC PRN (19:12)
[2019-12-13 19:30] VITALS: BP 133/83
[2019-12-13] MEDS: atorvastatin 10mg tablet PO SCH (20:08)
[2019-12-13] MEDS: LORazepam 1 MG tablet PO PRN (22:06)
--- NOTE | 2019-12-14 00:11 | NUR ---
Nursing Progress Note: Legal hold: LPS conserved Client on involuntary LPS conserved patient. Report received from Jonnie GOULD with use of SBAR Why are they here: The patient was readmitted to the unit after it was determined that he was unable to maintain himself in the community. Assessment What has happened this shift: The patient was up on the unit. He was friendly and cooperative with the nursing assessment. When asked if he felt he was having any side effects to medications he stated that he felt hungry all the time and tired. He stated that he knew he was going to be placed in an IMD after discharge from [facility]. He stated that over all his mood was good and he denied depression or anxiety however later in the evening he asked for PRN medication because he was very anxious. He stated he did not know why he felt anxious but it just came up. He denied having any auditory or visual hallucinations. S/I, H/I: none reported A/VH: the patient denied ADL's: independent Were meds taken: The patient was med compliant. Any med S/E fatigue and increased appetite Mental Status Exam Appearance: well groomed, obese male who appears stated age Eye contact: fair Behavior: cooperative friendly Speech: moderate rate and volume Mood: reports mood is good Affect: appropriate to stated mood Thought process: appropriate Thought Content: appropriate Cognition: alert and oriented Insight: poor Judgment: poor Interventions PRN's used: Ativan Therapeutic interventions: One to one with the patient to review medications and to assess for side effects to medications. Restraints/seclusion/emergency medication: Justification of Continued Inpatient Treatment: The patient is waiting transfer to a long chain quiller tender care facility that is being arranged by the public guardian's office.
[2019-12-14] MEDS: pantoprazole 40mg Tablet.DR PO SCH (07:30)
[2019-12-14 08:16] VITALS: BP_SYST 116; BP_SYST 135; BP_DIAS 59; BP_DIAS 81
[2019-12-14] MEDS: docusate sod 100mg capsule PO SCH ×2 (08:42→21:34)
[2019-12-14] MEDS: sennosides 8.6mg tablet PO SCH ×2 (08:42→21:34)
[2019-12-14] MEDS: nicotine 7mg patch - 24hr TD SCH (08:43)
[2019-12-14] MEDS: benztropine 1mg tablet PO SCH ×2 (08:44→21:34)
[2019-12-14] MEDS: propranolol 10mg tablet PO SCH ×3 (08:45→21:34)
[2019-12-14] MEDS: clozapine 25mg tablet PO SCH (13:03)
[2019-12-14] MEDS: clozapine 100mg tablet PO SCH ×2 (13:03→21:35)
[2019-12-14] MEDS: NICOTINE POLACRILEX 2 MG LOZENGE BC PRN (17:52)
--- NOTE | 2019-12-14 18:19 | NUR ---
Nursing Progress Note: Legal hold: LPS conserved Client on involuntary LPS conserved patient. Report received from RN with use of SBAR Why are they here: The patient was readmitted to the unit after it was determined that he was unable to maintain himself in the community. Assessment What has happened this shift: Received pt. in bed, asleep. Easily arousable; responsive. Pleasant, receptive to care, and cooperative with assessments and vital signs taking. Tolerated medications well. No s/e observed or reported. Verbalized I slept pretty good and Im feeling good. Slept late into the day and paced around unit. Patient was observed smiling and enjoying interacting with other patients, though he still kept his distance as if guarded. Pt. waved to ghost writer a couple times during his rounds around the unit to show he was in good spirits. S/I, H/I: None observed or reported A/VH: Denied ADL's: Independent Were meds taken: Yes Any med S/E: Mental Status Exam Appearance: Fairly groomed in casual attire Eye contact: Good Behavior: Cooperative friendly Speech: Normal rate and volume Mood: reports mood is good Affect: appropriate to stated mood Thought process: appropriate Thought Content: appropriate Cognition: alert and oriented Insight: poor Judgment: poor Interventions PRN's used: Nicotine Nhan Therapeutic interventions: One to one with the patient to review medications and to assess for side effects to medications. Restraints/seclusion/emergency medication: Justification of Continued Inpatient Treatment: The patient is waiting transfer to a intermediate care facility that is being arranged by the public guardian's office.
[2019-12-14 19:00] VITALS: BP 124/80
[2019-12-14] MEDS: atorvastatin 10mg tablet PO SCH (21:34)
[2019-12-14] MEDS: LORazepam 1 MG tablet PO PRN (22:04)
--- NOTE | 2019-12-15 00:19 | NUR ---
Nursing Progress Note: Legal hold: LPS conserved Client on involuntary LPS conserved patient. Report received from KERMIT Martinez with use of SBAR Why are they here: The patient was readmitted to the unit after it was determined that he was unable to maintain himself in the community. Assessment What has happened this shift: Pt was ambulating the isles during shift change. Greeted this typewriter tester with a smile and then went to the TV room to watch TV. Pt states that he didn't get to go out to the patio because he was just laying in bed most of the day. Pt was cooperative during 1:1 physical assessment and took all his meds. He denies any hallucinations and when asked about depression or anxiety he states that he feels anxious. Specially when hes alone. He states that he starts to have racing thoughts about the past. He spent some more time watching TV. He requested an Ativan before going to bed and this was given with good effect. S/I, H/I: Denies A/VH: Denies, pt was not observed responding to internal stimuli ADL's: independent Were meds taken: Yes Any med S/E: None reported or observed Mental Status Exam Appearance: Appropriate, wearing green unit scrub pants and shirt Eye contact: Good, direct Behavior: cooperative, smiling, somewhat guarded, bored Speech: Normal rate and rhythm Mood: "I'm alright" Affect: Bright with intermitted blunted affect Thought process: Circumstantial Thought Content: Watching TV, snacks Cognition: alert and oriented Insight: poor Judgment: poor Interventions PRN's used: Ativan Therapeutic interventions: One to one with the patient to review medications and to assess for side effects to medications. Restraints/seclusion/emergency medication: Justification of Continued Inpatient Treatment: The patient is waiting transfer to a senior care care facility that is being arranged by the public guardian's office.
[2019-12-15 07:44] VITALS: BP 114/57
[2019-12-15 08:09] LABS: BASOPHILS % (AUTO) 0.7 % (0-1); EOSINOPHILS # (AUTO) 0.1 X10'3 (0-0.9); EOSINOPHILS % (AUTO) 1.9 % (0-6); HEMATOCRIT 43.5 % (42.0-52.0); HEMOGLOBIN 14.4 g/dl (14.0-17.9); LYMPHOCYTES # (AUTO) 2.2 X10'3 (1.1-4.8); LYMPHOCYTES % (AUTO) 29.7 % (21-51); MEAN CORPUSCULAR HEMOGLOBIN 27.6 PG (27.0-31.0); MEAN CORPUSCULAR HGB CONC 33.2 g/dL (33.0-36.5); MEAN CORPUSCULAR VOLUME 83.4 FL (78-98); MEAN PLATELET VOLUME 8.2 FL (7.4-10.4); MONOCYTES # (AUTO) 0.8 X10'3 (0-0.9); MONOCYTES % (AUTO) 10.4 % (2-12); NEUTROPHILS # (AUTO) 4.2 X10'3 (1.8-7.7); NEUTROPHILS % (AUTO) 57.3 % (42-75); PLATELET COUNT 178 X10'3 (140-440); RED BLOOD COUNT 5.22 X10'6 (4.70-6.10); RED CELL DISTRIBUTION WIDTH 14.8 % (11.5-14.5); WHITE BLOOD COUNT 7.3 X10'3 (4.5-11.0)
[2019-12-15] MEDS: sennosides 8.6mg tablet PO SCH ×2 (08:22→21:27)
[2019-12-15] MEDS: benztropine 1mg tablet PO SCH ×2 (08:22→21:27)
[2019-12-15] MEDS: propranolol 10mg tablet PO SCH ×3 (08:22→21:27)
[2019-12-15] MEDS: pantoprazole 40mg Tablet.DR PO SCH (08:22)
[2019-12-15] MEDS: docusate sod 100mg capsule PO SCH ×2 (08:22→21:28)
[2019-12-15] MEDS: nicotine 7mg patch - 24hr TD SCH (08:25)
[2019-12-15 08:34] LABS: ALANINE AMINOTRANSFERASE 44 U/L (12-78); ALBUMIN 3.4 G/DL (3.4-5.0); ALBUMIN/GLOBULIN RATIO 1.1 (1.1-1.5); ALKALINE PHOSPHATASE 132 IU/L (46-116); ANION GAP 7 (8-16); ASPARTATE AMINO TRANSFERASE 26 U/L (10-37); BILIRUBIN,TOTAL 0.4 MG/DL (0.1-1.0); BLOOD UREA NITROGEN 17 MG/DL (7-18); BUN/CREATININE RATIO 18.3 (5.4-32.0); CALCIUM 8.8 MG/DL (8.5-10.1); CHLORIDE 109 MMOL/L (99-107); CREATININE 0.93 MG/DL (0.60-1.10); GLUCOSE 102 MG/DL (70-104); POTASSIUM 3.8 MMOL/L (3.5-5.1); SODIUM 143 MMOL/L (135-145); TOTAL CARBON DIOXIDE 27.4 MMOL/L (24-32); TOTAL PROTEIN 6.5 G/DL (6.4-8.2); eGFR > 90 ML/MIN
[2019-12-15] MEDS: clozapine 25mg tablet PO SCH (13:10)
[2019-12-15] MEDS: clozapine 100mg tablet PO SCH ×2 (13:10→21:28)
[2019-12-15] MEDS: NICOTINE POLACRILEX 2 MG LOZENGE BC PRN (14:03)
--- NOTE | 2019-12-15 14:47 | NUR ---
Nursing Progress Note: Legal hold: LPS conserved Client on involuntary LPS conserved patient. Report received from Micki CARMEN with use of SBAR Why are they here: The patient was readmitted to the unit after it was determined that he was unable to maintain himself in the community. Assessment What has happened this shift: Patient up, ambulating in jama. States he is doing fine. Med compliant. No c/o psychiatric symptoms including A/V hallucinations, depression, anxiety. Interacts appropriately with staff and others on the unit. Very pleasant demeanor. Requested nicotine lozenge X 1. During provider evaluation, continues to ask why he hasnt be placed anywhere then states this is a pretty okay place, I can watch movies. S/I, H/I: Nope A/VH: Nope. Sleep: 6.5 hours ADL's: independent Were meds taken: Yes Any med S/E: None reported or observed Mental Status Exam Appearance: hair appears greasy, wearing street clothes Eye contact: direct, Behavior: upbeat, bored, awaiting placement Speech: WNL Mood: Im good Affect: congruent with mood Thought process: Circumstantial Thought Content: Daily activities Cognition: alert and oriented Insight: poor Judgment: poor Interventions PRN's used: Nicotine Lozenge Therapeutic interventions: One to one with the patient to review medications and to assess for side effects to medications. Restraints/seclusion/emergency medication: Justification of Continued Inpatient Treatment: The patient is waiting transfer to a alf care facility that is being arranged by the public guardian's office.
[2019-12-15 19:00] VITALS: BP 126/82
[2019-12-15] MEDS: atorvastatin 10mg tablet PO SCH (21:27)
[2019-12-15] MEDS: LORazepam 1 MG tablet PO PRN (22:23)
--- NOTE | 2019-12-16 00:10 | NUR ---
Nursing Progress Note: Legal hold: LPS conserved Client on involuntary LPS conserved patient. Report received from KERMIT Martinez with use of SBAR Why are they here: The patient was readmitted to the unit after it was determined that he was unable to maintain himself in the community. Assessment What has happened this shift: Pt was in his room during shift change asking for a snack. Spent a good amount of time in the recreation room socializing appropriately with other patients and watching TV. Pt was cooperative during 1:1 physical assessment and took all his meds. When asked about hallucinations, he looked around as if trying to see something but he denied. After medication pass, pt proceeded to pace the falls and appeared to be responding to internal stimuli. He was laughing inappropriately, and making a lot hand gestures. Pt received Ativan with good effect. He retired to bed after this. S/I, H/I: Denies A/VH: Denies, however pt does appear to be internally preoccupied ADL's: independent Were meds taken: Yes Any med S/E: None reported or observed Mental Status Exam Appearance: Appropriate, wearing his own personal clothing Eye contact: Good, direct Behavior: cooperative, smiling, bored, anxious, was laughing inappropriately at times Speech: Normal rate and rhythm Mood: Appears to be happy, was socializing appropriately with other patients Affect: Appropriate, congruent with mood Thought process: Circumstantial, did become delusional before going to bed Thought Content: Watching TV, pt was laughing loudly responding to internal stimuli at some point Cognition: alert and oriented X4 Insight: poor Judgment: poor Interventions PRN's used: Ativan Therapeutic interventions: One to one with the patient to review medications and to assess for side effects to medications. Restraints/seclusion/emergency medication: Justification of Continued Inpatient Treatment: The patient is waiting transfer to a terminologist care facility that is being arranged by the public guardian's office.
[2019-12-16 07:20] VITALS: BP 112/60
[2019-12-16] MEDS: benztropine 1mg tablet PO SCH ×2 (08:07→20:55)
[2019-12-16] MEDS: sennosides 8.6mg tablet PO SCH ×2 (08:07→20:54)
[2019-12-16] MEDS: docusate sod 100mg capsule PO SCH ×2 (08:07→20:54)
[2019-12-16] MEDS: pantoprazole 40mg Tablet.DR PO SCH (08:07)
[2019-12-16] MEDS: propranolol 10mg tablet PO SCH ×3 (08:07→20:54)
[2019-12-16] MEDS: nicotine 7mg patch - 24hr TD SCH (08:08)
[2019-12-16] MEDS: acetaminophen 325mg tablet PO PRN (08:16)
[2019-12-16 12:52] VITALS: BP 125/70
[2019-12-16] MEDS: clozapine 25mg tablet PO SCH (14:08)
[2019-12-16] MEDS: clozapine 100mg tablet PO SCH ×2 (14:08→20:54)
--- NOTE | 2019-12-16 15:38 | NUR ---
Nursing Progress Note: Legal hold: LPS conserved Client on involuntary LPS conserved patient. Report received from Micki CARMEN with use of SBAR Why are they here: The patient was readmitted to the unit after it was determined that he was unable to maintain himself in the community. Assessment What has happened this shift: Pt sleeping at the change of shift. He was compliant with medication administration. He denies depression. Affect is euthymic. He readily smiles during conversation. Pt reports headache, which was relieved by Tylenol. Pt noted to have a 32.25 kg weight gain since July, discussed with MIRI Meyer. Nutrition consult and A1C lab ordered. Pt napped during the AM. He refused to go out to the patio in the AM due to his headache. Pt up in the group room for lunch and stayed up during the afternoon. S/I, H/I: None reported A/VH: Denies Sleep: States, slept OK Napped during the AM ADL's: Independent Were meds taken: Yes Any med S/E: None reported or observed Mental Status Exam Appearance: Disheveled, wearing black t-shirt and black pants Eye contact: Good Behavior: Pleasant and cooperative Speech: Normal rate and rhythm Mood: Good Affect: Euthymic Thought process: Circumstantial Thought Content: Bored Cognition: A&Ox3 Insight: poor Judgment: poor Interventions PRN's used: Tylenol x1 Therapeutic interventions: One to one therapeutic assessment, active listening, medication education, administration, and monitoring for effects, one to one with the patient to assess severity of thought disorder, and Q15 min. safety checks. Restraints/seclusion/emergency medication: N/A Justification of Continued Inpatient Treatment: Pt continues to require a safe and supportive environment, and remains GD r/t mental health. Is LPS conserved and awaiting placement. Addendum: 12/16/19 at 1740 by Kelly Brumfield RN Amend: Today, pt's A1C 6.2 up from 5.8 on 08.26.
[2019-12-16] MEDS: NICOTINE POLACRILEX 2 MG LOZENGE BC PRN (19:40)
[2019-12-16 19:47] VITALS: BP 126/74
[2019-12-16] MEDS: atorvastatin 10mg tablet PO SCH (20:54)
[2019-12-16] MEDS: LORazepam 1 MG tablet PO PRN (22:36)
--- NOTE | 2019-12-17 00:03 | NUR ---
Nursing Progress Note: Legal hold: LPS conserved Client on involuntary LPS conserved patient. Report received from KERMIT Martinez with use of SBAR Why are they here: The patient was readmitted to the unit after it was determined that he was unable to maintain himself in the community. Assessment What has happened this shift: Pt was in community room during shift change. Pt requested nicotine lozenge. States that he doesnt really crave cigarette anymore, its just what he thinks that its the first thing hell want to do when he gets out. its like my escape, I used to smoke weed, drink alcohol and walk around. Encourage pt to think of other things he could do to cope with the need to do all this. Talked to pt about his current weight gain explained that it might be a good idea to limit his food intake as he gets double portions every meal. Pt was receptive to the teaching and acknowledges that fact he needs to loose weight. PT was cooperative during 1:1 physical assessment and took all his hs meds. Pt continued to pace the isles and appeared to be responding to internal stimuli, and somewhat anxious. Pt was offered an Ativan which agreed to take. S/I, H/I: Denies A/VH: Denies, however pt does appear to be internally preoccupied ADL's: independent Were meds taken: Yes Any med S/E: None reported or observed Mental Status Exam Appearance: Appropriate, wearing his own personal clothing Eye contact: Good, direct Behavior: Cooperative, smiling, bored, anxious Speech: Normal rate and rhythm Mood: Euthymic Affect: Appropriate, congruent with mood Thought process: Circumstantial, did become delusional before going to bed Thought Content: What he would do if he was outside, delusional thoughts Cognition: alert and oriented X4 Insight: poor Judgment: poor Interventions PRN's used: Ativan Therapeutic interventions: One to one with the patient to review medications and to assess for side effects to medications. Restraints/seclusion/emergency medication: Justification of Continued Inpatient Treatment: The patient is waiting transfer to a assisted care facility that is being arranged by the public guardian's office.
[2019-12-17] MEDS: docusate sod 100mg capsule PO SCH ×2 (07:32→20:46)
[2019-12-17] MEDS: benztropine 1mg tablet PO SCH ×2 (07:33→20:45)
[2019-12-17] MEDS: nicotine 7mg patch - 24hr TD SCH (07:33)
[2019-12-17] MEDS: sennosides 8.6mg tablet PO SCH ×2 (07:33→20:46)
[2019-12-17] MEDS: pantoprazole 40mg Tablet.DR PO SCH (07:33)
[2019-12-17] MEDS: propranolol 10mg tablet PO SCH ×3 (07:34→20:45)
[2019-12-17 08:00] VITALS: BP 107/65
--- NOTE | 2019-12-17 10:03 | NUR ---
Nutrition consult: Pt latest standing scale wt +24kg since admit bed scale wt and new A1C taken though less than 7 at this time. Pt initial wt 116kg now 140kg receiving double eggs at breakfast, double fruits, vegetables TID, and salad at lunch and dinner per current MD diet order. TG 204 and LDL 122 on admit prior to wt gain receiving lipitor on heart healthy diet. Pt receiving kcals appropriate for admit wt though is on meds known to cause wt gain and possibility of receiving additional snacks on the floor as well. LBM 12/15. No nutrition concerns at this time. Will continue to monitor. Rec: 1. continue heart healthy diet 2. Double eggs q breakfast, double meat BIDLD; extra fruits/vegetables on meal trays; salad BIDLD all per diet order 3. routine bowel care 4. wt per rx Addendum: 12/17/19 at [address] Amended: Links added.
[2019-12-17] MEDS: clozapine 100mg tablet PO SCH ×2 (14:00→20:46)
[2019-12-17] MEDS: clozapine 25mg tablet PO SCH (14:00)
--- NOTE | 2019-12-17 15:26 | NUR ---
Nursing Progress Note: Legal hold: LPS conserved Client on involuntary LPS conserved patient. Report received from Milo CARMEN with use of SBAR Why are they here: The patient was readmitted to the unit after it was determined that he was unable to maintain himself in the community. Assessment What has happened this shift: Pt sleeping at he start of the shift. After breakfast he was observed charging his ankle bracelet and watching a movie in the Rec Rm prior to lunch. He engages well in conversation with both peers and staff. Affect is bright. After lunch he joined the group and went outside for part of the afternoon. S/I, H/I: None reported A/VH: Denies Sleep: Up all shift ADL's: Independent Were Meds taken: Yes Any med S/E: None reported or observed Mental Status Exam Appearance: Disheveled, appears to be wearing the same clothes he wore yesterday Eye contact: Good Behavior: Pleasant and cooperative Speech: Normal rate and rhythm Mood: Good Affect: Euthymic Thought process: Circumstantial Thought Content: "It will be nice to be out of here." Cognition: A&Ox3 Insight: poor Judgment: poor Interventions PRN's used: N/A Therapeutic interventions: Provided therapeutic communication w/active listening, medication education, administration, and monitoring for effects, one to one with the patient to assess severity of thought disorder, and Q15 min. safety checks. Restraints/seclusion/emergency medication: N/A Justification of Continued Inpatient Treatment: Pt continues to require a safe and supportive environment, and remains GD r/t mental health. Is LPS conserved and awaiting placement.
[2019-12-17 19:40] VITALS: BP 138/79
[2019-12-17] MEDS: atorvastatin 10mg tablet PO SCH (20:46)
[2019-12-17] MEDS: LORazepam 1 MG tablet PO PRN (21:58)
--- NOTE | 2019-12-18 02:24 | NUR ---
Nursing Progress Note: Legal hold: LPS conserved Client on involuntary LPS conserved patient. Report received from Milo CARMEN with use of SBAR Why are they here: The patient was readmitted to the unit after it was determined that he was unable to maintain himself in the community. Assessment What has happened this shift: Pt up on unit socialized with staff and other pts. Affect bright laughs easily sometimes laughter incongruent with situation. Cooperative with care took all meds requested and given Ativan at HS. Pt said he heard voices earlier today they were not derogatory per pt the voice instructed him how to play a game. S/I, H/I: None reported A/VH: Denies Sleep: Up all shift ADL's: Independent Were Meds taken: Yes Any med S/E: None reported or observed Mental Status Exam Appearance: Disheveled, appears to be wearing the same clothes he wore yesterday Eye contact: Good Behavior: Pleasant and cooperative Speech: Normal rate and rhythm Mood: Good Affect: Euthymic Thought process: Circumstantial Thought Content: "It will be nice to be out of here." Cognition: A&Ox3 Insight: poor Judgment: poor Interventions PRN's used: N/A Therapeutic interventions: Provided therapeutic communication w/active listening, medication education, administration, and monitoring for effects, one to one with the patient to assess severity of thought disorder, and Q15 min. safety checks. Restraints/seclusion/emergency medication: N/A Justification of Continued Inpatient Treatment: Pt continues to require a safe and supportive environment, and remains GD r/t mental health. Is LPS conserved and awaiting placement.
[2019-12-18 08:00] VITALS: BP 107/62
[2019-12-18] MEDS: benztropine 1mg tablet PO SCH ×2 (08:00→20:14)
[2019-12-18] MEDS: pantoprazole 40mg Tablet.DR PO SCH (08:00)
[2019-12-18] MEDS: sennosides 8.6mg tablet PO SCH ×2 (08:00→20:15)
[2019-12-18] MEDS: docusate sod 100mg capsule PO SCH ×2 (08:00→20:15)
[2019-12-18] MEDS: acetaminophen 325mg tablet PO PRN (08:01)
[2019-12-18] MEDS: propranolol 10mg tablet PO SCH ×3 (08:01→20:17)
[2019-12-18] MEDS: nicotine 7mg patch - 24hr TD SCH (08:04)
[2019-12-18] MEDS: NICOTINE POLACRILEX 2 MG LOZENGE BC PRN (10:28)
[2019-12-18 12:36] VITALS: BP 119/74
[2019-12-18] MEDS: clozapine 100mg tablet PO SCH ×2 (13:03→20:16)
[2019-12-18] MEDS: clozapine 25mg tablet PO SCH (13:03)
[2019-12-18] MEDS: calcium carbonate 500mg chew tablet PO PRN (14:25)
--- NOTE | 2019-12-18 15:25 | NUR ---
Nursing Progress Note: Legal hold: LPS conserved Client on involuntary LPS conserved patient. Report received from Celina GOULD with use of SBAR Why are they here: The patient was readmitted to the unit after it was determined that he was unable to maintain himself in the community. Assessment Pt denied depression, anxiety, SI/HI/AH/VH. Pt c/o some right shoulder pain this morning and was given prn Tylenol 650 mg with good effect. Pt stated that he dislocated his shoulder when he was 14 and he never got it fixed. Pt requested a prn nicotine lozenge at 1028. Pt requested something "for acid reflex" at 1425 and was given a prn TUMs with good effect. Pt asked this RN what was happening with the Coronavirus. Pt charged his ankle bracelet in the rec room. Pt is pleasant and cooperative with care, no unsafe behaviors noted. S/I, H/I: Pt denies. A/VH: Pt denies Sleep: Pt slept 7 hours last night per noc shift report, pt slept for a short while after breakfast. ADL's: Independent Were Meds taken: Yes Any med S/E: None noted or reported. Mental Status Exam Appearance: Disheveled, messy hear wearing shorts and a t-shirt. Eye contact: Good Behavior: Pleasant, cooperative, socializes with staff and peers, watches TV. Speech: Clear, audible, normal rate and rhythm. Mood: Good Affect: Euthymic Thought process: Circumstantial Thought Content: Wondered what was happening with the Coronavirus in the world. Cognition: A/O X 4 Insight: poor Judgment: poor Interventions PRN's used: Tylenol, nicotine lozenge, Tums. Therapeutic interventions: 1:1 assessment, active listening, therapeutic conversation, medication education, administration, and monitoring for effects, behavior monitoring, positive reinforcement, and Q15 minute safety checks. Restraints/seclusion/emergency medication: N/A Justification of Continued Inpatient Treatment: Pt continues to require a safe and supportive environment, and remains GD r/t mental health. Is LPS conserved and awaiting placement.
[2019-12-18 20:00] VITALS: BP 137/86
[2019-12-18] MEDS: atorvastatin 10mg tablet PO SCH (20:16)
[2019-12-18] MEDS: LORazepam 1 MG tablet PO PRN (21:23)
--- NOTE | 2019-12-18 23:32 | NUR ---
Nursing Progress Note: Legal hold: LPS conserved Client on involuntary LPS conserved patient. Report received from Juan GOULD with use of SBAR Why are they here: The patient was readmitted to the unit after it was determined that he was unable to maintain himself in the community. Assessment Patient was in the rec room watching tv with a few peers. He continues to respond to AH but denies SI,HI. Pt is cheerful and social with both staff and peers. Pt is med compliant and asked for an Ativan PRN on his way to bed. S/I, H/I: Pt denies. A/VH: Pt denies Sleep: Pt slept 7 hours last night per noc shift report, pt slept for a short while after breakfast. ADL's: Independent Were Meds taken: Yes Any med S/E: None noted or reported. Mental Status Exam Appearance: Disheveled, messy hear wearing shorts and a t-shirt. Eye contact: Good Behavior: Pleasant, cooperative, socializes with staff and peers, watches TV. Speech: Clear, audible, normal rate and rhythm. Mood: Good Affect: Euthymic Thought process: Circumstantial Thought Content: Wondered what was happening with the Coronavirus in the world. Cognition: A/O X 4 Insight: poor Judgment: poor Interventions PRN's used: Ativan Therapeutic interventions: 1:1 assessment, active listening, therapeutic conversation, medication education, administration, and monitoring for effects, behavior monitoring, positive reinforcement, and Q15 minute safety checks. Restraints/seclusion/emergency medication: N/A Justification of Continued Inpatient Treatment: Pt continues to require a safe and supportive environment, and remains GD r/t mental health. Is LPS conserved and awaiting placement.
[2019-12-19] MEDS: sennosides 8.6mg tablet PO SCH ×2 (07:29→20:48)
[2019-12-19] MEDS: nicotine 7mg patch - 24hr TD SCH (07:29)
[2019-12-19] MEDS: pantoprazole 40mg Tablet.DR PO SCH (07:30)
[2019-12-19] MEDS: propranolol 10mg tablet PO SCH ×3 (07:30→20:49)
[2019-12-19] MEDS: docusate sod 100mg capsule PO SCH ×2 (07:30→20:49)
[2019-12-19] MEDS: benztropine 1mg tablet PO SCH ×2 (07:30→20:48)
[2019-12-19 08:00] VITALS: BP 99/53
--- NOTE | 2019-12-19 10:08 | NUR ---
Nursing Progress Note: Legal hold: LPS conserved Client on involuntary LPS conserved patient. Report received from Celina GOULD with use of SBAR Why are they here: The patient was readmitted to the unit after it was determined that he was unable to maintain himself in the community. Assessment Pt resting in bed peacefully at change of shift. He is pleasant and cooperative with care and takes his medications as ordered and directed. Patient denies A/VH, SI and HI. He reports "I feel good". He eats meals and snack in his room due to Covid 19 and social distancing. He is seen periodically ambulating in the hallways and talking to peers and staff pleasantly. S/I, H/I: Pt denies. A/VH: Pt denies Sleep: Pt napped, woke up for breakfast and then slept for a bit longer ADL's: Independent Were Meds taken: Yes Any med S/E: None noted or reported. Mental Status Exam Appearance: Disheveled, messy hear wearing shorts and a t-shirt. Eye contact: Good Behavior: Pleasant, cooperative, socializes with staff and peers, watches TV. Speech: Clear, audible, normal rate and rhythm. Mood: euthymic, bright Affect: congruent with mood Thought process: Circumstantial Thought Content: Wondered when he'll be discharging. Cognition: A/O X 4 Insight: poor Judgment: poor Interventions PRN's used: none Therapeutic interventions: 1:1 assessment, active listening, therapeutic conversation, medication education, administration, and monitoring for effects, behavior monitoring, positive reinforcement, and Q15 minute safety checks. Restraints/seclusion/emergency medication: N/A Justification of Continued Inpatient Treatment: Pt continues to require a safe and supportive environment, and remains GD r/t mental health. Is LPS conserved and awaiting placement.
--- NOTE | 2019-12-19 12:30 | NUR ---
RN assumed care of patient. Addendum: 12/19/19 at 1724 by Naga Beatty RN Pt. seen watching movies with other patients in community room. Pt. continues to be preoccupied with food. Pt. informed pt. of need for being calorie conscious.
[2019-12-19] MEDS: clozapine 25mg tablet PO SCH (13:49)
[2019-12-19] MEDS: clozapine 100mg tablet PO SCH ×2 (13:49→20:48)
[2019-12-19 19:43] VITALS: BP 130/83
[2019-12-19] MEDS: atorvastatin 10mg tablet PO SCH (20:48)
[2019-12-19] MEDS: LORazepam 1 MG tablet PO PRN (22:09)
--- NOTE | 2019-12-20 01:13 | NUR ---
Nursing Progress Note: Legal hold: LPS conserved Client on involuntary LPS conserved patient. Report received from Juan GOULD with use of SBAR Why are they here: The patient was readmitted to the unit after it was determined that he was unable to maintain himself in the community. Assessment Patient continues to cheerful responding to internal stimuli, watching tv with peers and pacing the halls. Pt dose state he is looking foreword to getting placement soon, would like more to do. S/I, H/I: Pt denies. A/VH: Pt denies Sleep: Pt napped, woke up for breakfast and then slept for a bit longer ADL's: Independent Were Meds taken: Yes Any med S/E: None noted or reported. Mental Status Exam Appearance: Disheveled, messy hear wearing shorts and a t-shirt. Eye contact: Good Behavior: Pleasant, cooperative, socializes with staff and peers, watches TV. Speech: Clear, audible, normal rate and rhythm. Mood: euthymic, bright Affect: congruent with mood Thought process: Circumstantial Thought Content: Wondered when he'll be discharging. Cognition: A/O X 4 Insight: poor Judgment: poor Interventions PRN's used: none Therapeutic interventions: 1:1 assessment, active listening, therapeutic conversation, medication education, administration, and monitoring for effects, behavior monitoring, positive reinforcement, and Q15 minute safety checks. Restraints/seclusion/emergency medication: N/A Justification of Continued Inpatient Treatment: Pt continues to require a safe and supportive environment, and remains GD r/t mental health. Is LPS conserved and awaiting placement.
[2019-12-20] MEDS: benztropine 1mg tablet PO SCH ×2 (07:54→20:35)
[2019-12-20] MEDS: sennosides 8.6mg tablet PO SCH ×2 (07:54→20:35)
[2019-12-20] MEDS: pantoprazole 40mg Tablet.DR PO SCH (07:54)
[2019-12-20] MEDS: docusate sod 100mg capsule PO SCH ×2 (07:54→20:35)
[2019-12-20] MEDS: nicotine 7mg patch - 24hr TD SCH (07:54)
[2019-12-20] MEDS: propranolol 10mg tablet PO SCH ×3 (08:00→20:36)
[2019-12-20] MEDS: NICOTINE POLACRILEX 2 MG LOZENGE BC PRN (08:03)
[2019-12-20 08:20] VITALS: BP 98/55
--- NOTE | 2019-12-20 13:38 | NUR ---
DM consult RE "wt gain.": Pt is on medication known to cause wt gain and increased appetite and is receiving additional foods per current MD diet order not taking into account any snack receiving from the floor pantry. A1C 6.2 and not appropriate for DM ed at this time. Wt gain addressed in prior RD note. Addendum: 12/20/19 at [address] Amended: Links added.
[2019-12-20] MEDS: clozapine 25mg tablet PO SCH (14:12)
[2019-12-20] MEDS: clozapine 100mg tablet PO SCH ×2 (14:13→20:35)
--- NOTE | 2019-12-20 16:49 | NUR ---
Nursing Progress Note: Legal hold: LPS conserved Client on involuntary LPS conserved patient. Report received from LUIS FERNANDO Prieto with use of SBAR Why are they here: The patient was readmitted to the unit after it was determined that he was unable to maintain himself in the community. Assessment Patient continues to cheerful responding to internal stimuli, watching tv with peers and pacing the halls. Pt dose state he is looking foreword to getting placement soon, would like more to do. S/I, H/I: Pt denies. A/VH: Pt denies Sleep: Pt off and on throughout the day ADL's: Independent Were Meds taken: Yes Any med S/E: None noted or reported. Mental Status Exam Appearance: groomed, wearing pants and a t-shirt. Eye contact: Good Behavior: Pleasant, cooperative, socializes with staff and peers, watches TV. Speech: Clear, audible, normal rate and rhythm. Mood: euthymic, bright Affect: congruent with mood Thought process: Circumstantial Thought Content: Wondered when he'll be discharging. Cognition: A/O X 4 Insight: poor Judgment: poor Interventions PRN's used: none Therapeutic interventions: 1:1 assessment, active listening, therapeutic conversation, medication education, administration, and monitoring for effects, behavior monitoring, positive reinforcement, and Q15 minute safety checks. Restraints/seclusion/emergency medication: N/A Justification of Continued Inpatient Treatment: Pt continues to require a safe and supportive environment, and remains GD r/t mental health. Is LPS conserved and awaiting placement.
[2019-12-20 20:14] VITALS: BP 156/78
[2019-12-20] MEDS: atorvastatin 10mg tablet PO SCH (20:35)
[2019-12-20] MEDS: LORazepam 1 MG tablet PO PRN (20:42)
--- NOTE | 2019-12-21 02:21 | NUR ---
Nursing Progress Note: Legal hold: LPS conserved Client on involuntary LPS conserved patient. Report received from Stu RN with use of SBAR Why are they here: The patient was readmitted to the unit after it was determined that he was unable to maintain himself in the community. Assessment Patient continues to respond to internal stimuli talking to him self. He states he is waiting for placement and realy wants to go somewhere else." I'm ok here". Pt is med compliant and cheerful. S/I, H/I: Pt denies. A/VH: Pt denies Sleep: Pt off and on throughout the day ADL's: Independent Were Meds taken: Yes Any med S/E: None noted or reported. Mental Status Exam Appearance: groomed, wearing pants and a t-shirt. Eye contact: Good Behavior: Pleasant, cooperative, socializes with staff and peers, watches TV. Speech: Clear, audible, normal rate and rhythm. Mood: euthymic, bright Affect: congruent with mood Thought process: Circumstantial Thought Content: Wondered when he'll be discharging. Cognition: A/O X 4 Insight: poor Judgment: poor Interventions PRN's used: Ativan Therapeutic interventions: 1:1 assessment, active listening, therapeutic conversation, medication education, administration, and monitoring for effects, behavior monitoring, positive reinforcement, and Q15 minute safety checks. Restraints/seclusion/emergency medication: N/A Justification of Continued Inpatient Treatment: Pt continues to require a safe and supportive environment, and remains GD r/t mental health. Is LPS conserved and awaiting placement.
[2019-12-21 08:00] VITALS: BP 101/45
[2019-12-21] MEDS: benztropine 1mg tablet PO SCH ×2 (08:17→20:12)
[2019-12-21] MEDS: pantoprazole 40mg Tablet.DR PO SCH (08:18)
[2019-12-21] MEDS: sennosides 8.6mg tablet PO SCH ×2 (08:18→20:12)
[2019-12-21] MEDS: propranolol 10mg tablet PO SCH ×3 (08:18→20:12)
[2019-12-21] MEDS: docusate sod 100mg capsule PO SCH ×2 (08:18→20:12)
[2019-12-21] MEDS: nicotine 7mg patch - 24hr TD SCH (08:19)
[2019-12-21] MEDS: NICOTINE POLACRILEX 2 MG LOZENGE BC PRN ×2 (08:28→19:27)
[2019-12-21] MEDS: clozapine 25mg tablet PO SCH (13:39)
[2019-12-21] MEDS: clozapine 100mg tablet PO SCH ×2 (13:39→20:12)
[2019-12-21] MEDS: LORazepam 1 MG tablet PO PRN ×2 (13:43→22:30)
--- NOTE | 2019-12-21 17:02 | NUR ---
Nursing Progress Note: Legal hold: LPS conserved Client on involuntary LPS conserved patient. Report received from LUIS FERNANDO Fox with use of SBAR Why are they here: The patient was readmitted to the unit after it was determined that he was unable to maintain himself in the community. Assessment Patient continues to respond to internal stimuli talking to him self. He states he is waiting for placement and really wants to go somewhere else." I'm ok here". Pt is med compliant and cheerful. S/I, H/I: Pt denies. A/VH: Pt denies Sleep: Pt off and on throughout the day ADL's: Independent Were Meds taken: Yes Any med S/E: None noted or reported. Mental Status Exam Appearance: groomed, wearing pants and a t-shirt. Eye contact: Good Behavior: Pleasant, cooperative, socializes with staff and peers, watches TV. Speech: Clear, audible, normal rate and rhythm. Mood: euthymic, bright Affect: congruent with mood Thought process: Circumstantial Thought Content: Wondered when he'll be discharging. Cognition: A/O X 4 Insight: poor Judgment: poor Interventions PRN's used: Ativan and Nicotine Lozenge Therapeutic interventions: 1:1 assessment, active listening, therapeutic conversation, medication education, administration, and monitoring for effects, behavior monitoring, positive reinforcement, and Q15 minute safety checks. Restraints/seclusion/emergency medication: N/A Justification of Continued Inpatient Treatment: Pt continues to require a safe and supportive environment, and remains GD r/t mental health. Is LPS conserved and awaiting placement.
[2019-12-21 19:00] VITALS: BP 136/89
[2019-12-21] MEDS: acetaminophen 325mg tablet PO PRN (19:15)
[2019-12-21] MEDS: atorvastatin 10mg tablet PO SCH (20:12)
--- NOTE | 2019-12-22 00:13 | NUR ---
Nursing Progress Note: Legal hold: LPS Client on involuntary status for GD Report received from nurse with use of SBAR: LUIS FERNANDO Fox Why are they here: Patient had been discharged previously with follow up at [facility]. Upon assessment by the [facility], it was determined patient was not able to obtain, food, jail, or clothing and a 5150 for GD was written. Patient returned within hours of discharge. At time of return patient denied any symptoms related to his mental illness diagnosis of Schizophrenia. He continues to present with cognitive impairment which impedes his ability to care of himself, and requires multiple supports and external structures. Assessment What has happened this shift: Pt. up watching TV in Recreation Room at the beginning of the shift, interacting appropriately with others. He greets this proposal writer animatedly and requests a PRN Tylenol for chronic right shoulder pain r/t an old dislocation injury, administered with effectiveness. 1:1 completed at bedside, pt. continues to deny any mental health s/s and no delusional statements made. He is not observed to be responding to internal stimuli this shift. Pt. does admit to some restlessness r/t desire to discharge, he states, "I am sixth on the waiting list now!" PRN Ativan requested later at HS r/t anxiety, administered with effectiveness. Pt. appear to be resting comfortably, will continue to monitor. S/I, H/I: Denies A/VH: Pt. denies, no s/s of response to internal stimuli Sleep: Pt. requests PRN Ativan at HS r/t increased anxiety, administered with effectiveness ADL's: Requires some prompting and direction from staff at times Group attendance: N/A Were meds taken: Yes Any med S/E: None Mental Status Exam Appearance: Presents as neat, and appropriately dressed. However is wearing two baseball hats on top of one another. Eye contact: Good Behavior: Cooperative and slightly anxious Speech: Soft and animated, child-like. Asks appropriate conversational questions Mood: Pleasant Affect: Animated Thought process: WNL Thought Content: Continued preoccupation with desire to discharge Cognition: A&O X4 Insight: Poor Judgment: Poor to fair Interventions PRN's used: Nicotine Lozenge, Tylenol, and Ativan Therapeutic interventions: Ensured contract for safety, maintained a safe and therapeutic environment, provided clear and simple instructions, monitored behaviors and need for intervention, encouraged independent performance of ADLs, monitored V/S, and maintained Q 15 min safety checks. Restraints/seclusion/emergency medication: N/A Justification of Continued Inpatient Treatment: Pt. continues to require a safe and supportive environment, and remains GD r/t mental health. He is LPS conserved and awaiting IMD placement.
[2019-12-22 07:46] VITALS: BP 105/61
[2019-12-22] MEDS: sennosides 8.6mg tablet PO SCH ×2 (07:55→20:15)
[2019-12-22] MEDS: propranolol 10mg tablet PO SCH ×3 (07:55→20:15)
[2019-12-22] MEDS: docusate sod 100mg capsule PO SCH ×2 (07:55→20:15)
[2019-12-22] MEDS: pantoprazole 40mg Tablet.DR PO SCH (07:55)
[2019-12-22] MEDS: nicotine 7mg patch - 24hr TD SCH (07:57)
[2019-12-22] MEDS: benztropine 1mg tablet PO SCH ×2 (08:10→20:15)
[2019-12-22 12:47] VITALS: BP 137/81
[2019-12-22] MEDS: clozapine 100mg tablet PO SCH ×2 (13:03→20:15)
[2019-12-22] MEDS: clozapine 25mg tablet PO SCH (13:03)
--- NOTE | 2019-12-22 14:19 | NUR ---
Nursing Progress Note: Legal hold: LPS Client on involuntary status for GD Report received from nurse with use of SBAR: Avril Mueller RN Why are they here: Patient had been discharged previously with follow up at [facility]. Upon assessment by the [facility], it was determined patient was not able to obtain, food, detention, or clothing and a 5150 for GD was written. Patient returned within hours of discharge. At time of return patient denied any symptoms related to his mental illness diagnosis of Schizophrenia. He continues to present with cognitive impairment which impedes his ability to care of himself, and requires multiple supports and external structures. Assessment What has happened this shift: Pt denies depression, anxiety, SI/HI/AH/VH, does not appear to be responding to internal stimuli. Pt is pleasant and cooperative with care and medications. Pt socializes with staff and peers. No unsafe behaviors noted. Pt participated in bowling unit activity. S/I, H/I: Pt denies A/VH: Pt denies, does not appear to be responding to internal stimuli. Sleep: Pt slept 6 hours last night per noc shift report. ADL's: Independent. Group attendance: N/A Were meds taken: Yes Any med S/E: None noted or reported. Mental Status Exam Appearance: Large tall, dark messy hair, disheveled in casual street clothes. Eye contact: Good Behavior: Calm, cooperative Speech: Clear, audible, minimal Mood: Euthymic Affect: Appropriate Thought process: Linear Thought Content: Waiting for discharge. Cognition: A/O X 4 Insight: Poor Judgment: Poor to fair Interventions PRN's used: None Therapeutic interventions: 1:1 assessment, therapeutic conversation, active listening, maintained a safe and therapeutic environment, monitored behaviors and need for intervention, encouragement to perform personal hygiene, Q 15 min safety checks. Restraints/seclusion/emergency medication: N/A Justification of Continued Inpatient Treatment: Pt. continues to require a safe and supportive environment, and remains GD r/t mental health. He is LPS conserved and awaiting IMD placement.
[2019-12-22 19:26] VITALS: BP 113/80
[2019-12-22] MEDS: atorvastatin 10mg tablet PO SCH (20:15)
[2019-12-22] MEDS: LORazepam 1 MG tablet PO PRN (22:03)
--- NOTE | 2019-12-23 04:36 | NUR ---
Nursing Progress Note: Legal hold: LPS Client on involuntary status for GD Report received from nurse with use of SBAR: LUIS FERNANDO Fox Why are they here: Patient had been discharged previously with follow up at [facility] Team. Upon assessment by the [facility], it was determined patient was not able to obtain, food, long-term, or clothing and a 5150 for GD was written. Patient returned within hours of discharge. At time of return patient denied any symptoms related to his mental illness diagnosis of Schizophrenia. He continues to present with cognitive impairment which impedes his ability to care of himself, and requires multiple supports and external structures. Assessment What has happened this shift: Patient pacing the jama at the beginning of shift. Pleasant and cooperative with all care; compliant with all medication. PRN Ativan provided per patient request before bed. Patient continues to socialize and watch TV with peers. Denies SI, HI, A/VH but observed responding to internal stimuli this shift. S/I, H/I: Denies A/VH: Pt. denies, appears to be responding to internal stimuli Sleep: Pt. requests PRN Ativan at HS r/t increased anxiety, administered with effectiveness ADL's: Requires some prompting and direction from staff at times Group attendance: N/A Were meds taken: Yes Any med S/E: None observed or reported Mental Status Exam Appearance: Neat, clean and appropriately dressed for the unit. Eye contact: Good Behavior: Cooperative and slightly anxious Speech: Soft and animated, child-like. Asks appropriate conversational questions Mood: "Good" Affect: Animated Thought process: Linear Thought Content: Continued preoccupation with desire to discharge Cognition: A&O X4 Insight: Poor Judgment: Poor to fair Interventions PRN's used: Ativan Therapeutic interventions: Ensured contract for safety, maintained a safe and therapeutic environment, provided clear and simple instructions, monitored behaviors and need for intervention, encouraged independent performance of ADLs, monitored V/S, and maintained Q 15 min safety checks. Restraints/seclusion/emergency medication: N/A Justification of Continued Inpatient Treatment: Pt. continues to require a safe and supportive environment, and remains GD r/t mental health. He is LPS conserved and awaiting IMD placement.
[2019-12-23 07:45] VITALS: BP 109/62
[2019-12-23] MEDS: propranolol 10mg tablet PO SCH ×3 (07:47→20:17)
[2019-12-23] MEDS: benztropine 1mg tablet PO SCH ×2 (07:47→20:17)
[2019-12-23] MEDS: docusate sod 100mg capsule PO SCH ×2 (07:47→20:17)
[2019-12-23] MEDS: nicotine 7mg patch - 24hr TD SCH (07:47)
[2019-12-23] MEDS: sennosides 8.6mg tablet PO SCH ×2 (07:48→20:17)
[2019-12-23] MEDS: pantoprazole 40mg Tablet.DR PO SCH (07:48)
[2019-12-23] MEDS: clozapine 25mg tablet PO SCH (14:07)
[2019-12-23] MEDS: clozapine 100mg tablet PO SCH ×2 (14:07→20:16)
--- NOTE | 2019-12-23 14:23 | NUR ---
Nursing Progress Note: Legal hold: LPS Client on involuntary status for GD Report received from nurse with use of SBAR: LUIS FERNANDO Price Why are they here: Patient had been discharged previously with follow up at [facility] Team. Upon assessment by the [facility] [place], it was determined patient was not able to obtain, food, snf, or clothing and a 5150 for GD was written. Patient returned within hours of discharge. At time of return patient denied any symptoms related to his mental illness diagnosis of Schizophrenia. He continues to present with cognitive impairment which impedes his ability to care of himself, and requires multiple supports and external structures. Assessment What has happened this shift: Patient sleeping for part of the shift. Patient has been cooperating with his medications and his care today.. Is keeping to himself today and has not been saying much. S/I, H/I: Denies A/VH: Pt. denies, appears to be responding to internal stimuli Sleep: Pt. requests PRN Ativan at HS r/t increased anxiety, administered with effectiveness ADL's: Requires some prompting and direction from staff at times Group attendance: N/A Were meds taken: Yes Any med S/E: None observed or reported Mental Status Exam Appearance: slightly unkempt, shirtless beginning of shift Eye contact: Good Behavior: Cooperative Speech: Soft and animated, child-like. Asks appropriate conversational questions Mood: calm Affect: quiet Thought process: Linear Thought Content: Continued preoccupation with desire to discharge Cognition: A&O X4 Insight: Poor Judgment: Poor to fair Interventions PRN's used: Ativan Therapeutic interventions: Ensured contract for safety, maintained a safe and therapeutic environment, provided clear and simple instructions, monitored behaviors and need for intervention, encouraged independent performance of ADLs, monitored V/S, and maintained Q 15 min safety checks. Restraints/seclusion/emergency medication: N/A Justification of Continued Inpatient Treatment: Pt. continues to require a safe and supportive environment, and remains GD r/t mental health. He is LPS conserved and awaiting IMD placement.
[2019-12-23 19:00] VITALS: BP 109/69
[2019-12-23] MEDS: atorvastatin 10mg tablet PO SCH (20:17)
--- NOTE | 2019-12-23 23:10 | NUR ---
Nursing Progress Note: Legal hold: LPS Client on involuntary status for GD Report received from nurse with use of SBAR: LUIS FERNANDO Fox Why are they here: Patient had been discharged previously with follow up at [facility] Team. Upon assessment by the [facility] [place], it was determined patient was not able to obtain, food, fci, or clothing and a 5150 for GD was written. Patient returned within hours of discharge. At time of return patient denied any symptoms related to his mental illness diagnosis of Schizophrenia. He continues to present with cognitive impairment which impedes his ability to care of himself, and requires multiple supports and external structures. Assessment What has happened this shift: Patient visible on the unit at the beginning of shift. Bright and socializing appropriately with peers. Pleasant and cooperative with all care; compliant with all meds. No PRNs needed at this time. Denies SI, HI, A/VH did not appear to be responding to IS this shift. Patient participated in HS snack and watched TV before retiring to bed for the evening. S/I, H/I: Denies A/VH: Pt. horacio, does not appear to be responding to IS this shift Sleep: Refer to sleep assessment ADL's: Independent Group attendance: N/A Were meds taken: Yes Any med S/E: None observed or reported Mental Status Exam Appearance: Neat, clean and appropriately dressed for the unit. Eye contact: Good Behavior: Cooperative, socializing Speech: Clear, audible, steady rate/rhythm Mood: "Good" Affect: Animated Thought process: Linear Thought Content: Continued preoccupation with desire to discharge Cognition: A&O X4 Insight: Poor Judgment: Poor to fair Interventions PRN's used: None Therapeutic interventions: Ensured contract for safety, maintained a safe and therapeutic environment, provided clear and simple instructions, monitored behaviors and need for intervention, encouraged independent performance of ADLs, monitored V/S, and maintained Q 15 min safety checks. Restraints/seclusion/emergency medication: N/A Justification of Continued Inpatient Treatment: Pt. continues to require a safe and supportive environment, and remains GD r/t mental health. He is LPS conserved and awaiting IMD placement.
[2019-12-24 08:00] VITALS: BP 110/62
[2019-12-24] MEDS: sennosides 8.6mg tablet PO SCH ×2 (08:10→20:06)
[2019-12-24] MEDS: docusate sod 100mg capsule PO SCH ×2 (08:10→20:06)
[2019-12-24] MEDS: benztropine 1mg tablet PO SCH ×2 (08:10→20:07)
[2019-12-24] MEDS: nicotine 7mg patch - 24hr TD SCH (08:10)
[2019-12-24] MEDS: pantoprazole 40mg Tablet.DR PO SCH (08:10)
[2019-12-24] MEDS: propranolol 10mg tablet PO SCH ×3 (08:10→20:06)
[2019-12-24] MEDS: clozapine 25mg tablet PO SCH (13:14)
[2019-12-24] MEDS: clozapine 100mg tablet PO SCH ×2 (13:14→20:06)
--- NOTE | 2019-12-24 14:45 | NUR ---
Nursing Progress Note: Zachariah Legal hold: LPS Client on involuntary status for GD Report received from nurse with use of SBAR: Stephanie REYNA Why are they here: Patient had been discharged previously with follow up at [facility] Access Team. Upon assessment by the [facility] [place], it was determined patient was not able to obtain, food, senior living, or clothing and a 5150 for GD was written. Patient returned within hours of discharge. At time of return patient denied any symptoms related to his mental illness diagnosis of Schizophrenia. He continues to present with cognitive impairment which impedes his ability to care of himself, and requires multiple supports and external structures. Assessment What has happened this shift: Patient was resting in bed peacefully at change of shift. He is pleasant and cooperative with care and takes his medications as ordered. Pt socializes with staff and peers. No unsafe behaviors noted. He is seen sitting in the group room watching a movie. He denies A/VH, SI and HI. S/I, H/I: Pt denies A/VH: Pt denies, does not appear to be responding to internal stimuli. Sleep: Naps intermittently throughout the shift ADL's: Independent. Group attendance: N/A Were meds taken: Yes Any med S/E: None noted or reported. Mental Status Exam Appearance: Large tall, dark messy hair, disheveled in casual street clothes. Eye contact: Good Behavior: Calm, cooperative Speech: Clear, audible, minimal Mood: Euthymic Affect: congruent with mood Thought process: Linear Thought Content: Waiting for discharge, "I am 5 on the waiting list right now. I was 10 but now I am 5". Cognition: A/O X 4 Insight: Poor Judgment: Poor to fair Interventions PRN's used: None Therapeutic interventions: 1:1 assessment, therapeutic conversation, active listening, maintained a safe and therapeutic environment, monitored behaviors and need for intervention, encouragement to perform personal hygiene, Q 15 min safety checks. Restraints/seclusion/emergency medication: N/A Justification of Continued Inpatient Treatment: Pt. continues to require a safe and supportive environment, and remains GD r/t mental health. He is LPS conserved and awaiting IMD placement.
[2019-12-24] MEDS: atorvastatin 10mg tablet PO SCH (20:06)
[2019-12-24 20:10] VITALS: BP 139/80
--- NOTE | 2019-12-24 23:42 | NUR ---
Nursing Progress Note: Zachariah Legal hold: LPS Client on involuntary status for GD Report received from nurse with use of SBAR: Dominique REYNA Why are they here: Patient had been discharged previously with follow up at [facility] Team. Upon assessment by the [facility] [place], it was determined patient was not able to obtain, food, care home, or clothing and a 5150 for GD was written. Patient returned within hours of discharge. At time of return patient denied any symptoms related to his mental illness diagnosis of Schizophrenia. He continues to present with cognitive impairment which impedes his ability to care of himself, and requires multiple supports and external structures. Assessment What has happened this shift: Pt is interacting pleasantly with staff and other patients, he spent the evening watching tv with others in the group room. He is med compliant, and looking forward to when he can leave. He states he enjoys going outside and talks about being a patient here the longest. He jokes he could live here if they'd put an xbox in his room and if he could go outside and smoke. S/I, H/I: Pt denies A/VH: Pt denies, does not appear to be responding to internal stimuli. Sleep: see sleep hours ADL's: Independent. Group attendance: N/A Were meds taken: Yes Any med S/E: None noted or reported. Mental Status Exam Appearance: Large tall, unkempt hair, wearing casual street clothes. Eye contact: Good Behavior: Calm, cooperative Speech: Clear, audible, minimal Mood: Euthymic Affect: congruent with mood Thought process: Linear Thought Content: talking about being here the longest Cognition: A/O X 4 Insight: Poor Judgment: Poor to fair Interventions PRN's used: None Therapeutic interventions: 1:1 assessment, therapeutic conversation, active listening, maintained a safe and therapeutic environment, monitored behaviors and need for intervention, encouragement to perform personal hygiene, Q 15 min safety checks. Restraints/seclusion/emergency medication: N/A Justification of Continued Inpatient Treatment: Pt. continues to require a safe and supportive environment, and remains GD r/t mental health. He is LPS conserved and awaiting IMD placement.
[2019-12-25] MEDS: docusate sod 100mg capsule PO SCH ×2 (07:48→20:34)
[2019-12-25] MEDS: propranolol 10mg tablet PO SCH ×3 (07:48→20:34)
[2019-12-25] MEDS: nicotine 7mg patch - 24hr TD SCH (07:48)
[2019-12-25] MEDS: sennosides 8.6mg tablet PO SCH ×2 (07:48→20:34)
[2019-12-25] MEDS: benztropine 1mg tablet PO SCH ×2 (07:48→20:34)
[2019-12-25] MEDS: pantoprazole 40mg Tablet.DR PO SCH (07:48)
[2019-12-25 08:00] VITALS: BP 96/60
[2019-12-25] MEDS: clozapine 100mg tablet PO SCH ×2 (13:08→20:34)
[2019-12-25] MEDS: clozapine 25mg tablet PO SCH (13:08)
--- NOTE | 2019-12-25 15:23 | NUR ---
Nursing Progress Note: Zachariah Legal hold: LPS Client on involuntary status for GD Report received from nurse with use of SBAR: Ida REYNA Why are they here: Patient had been discharged previously with follow up at [facility] Access Team. Upon assessment by the [facility], it was determined patient was not able to obtain, food, jail, or clothing and a 5150 for GD was written. Patient returned within hours of discharge. At time of return patient denied any symptoms related to his mental illness diagnosis of Schizophrenia. He continues to present with cognitive impairment which impedes his ability to care of himself, and requires multiple supports and external structures. Assessment What has happened this shift: Patient was resting in bed peacefully at change of shift. He slept until right before breakfast. He is pleasant and cooperative with care and takes his medications as ordered without incident. Pt socializes with staff and peers. No unsafe behaviors noted. He is seen sitting in the group room watching a movie. He denies A/VH, SI and HI. He went to the patio in the afternoon after lunch. S/I, H/I: Pt denies A/VH: Pt denies, does not appear to be responding to internal stimuli. Sleep: Naps intermittently throughout the shift ADL's: Independent. Group attendance: N/A Were meds taken: Yes Any med S/E: None noted or reported. Mental Status Exam Appearance: Large tall, dark messy hair, disheveled in casual street clothes. Eye contact: Good Behavior: Calm, cooperative Speech: Clear, audible, minimal Mood: Euthymic Affect: congruent with mood Thought process: Linear Thought Content: Waiting for discharge, "just chilling". Cognition: A/O X 4 Insight: Poor Judgment: Poor to fair Interventions PRN's used: None Therapeutic interventions: 1:1 assessment, therapeutic conversation, active listening, maintained a safe and therapeutic environment, monitored behaviors and need for intervention, encouragement to perform personal hygiene, Q 15 min safety checks. Restraints/seclusion/emergency medication: N/A Justification of Continued Inpatient Treatment: Pt. continues to require a safe and supportive environment, and remains GD r/t mental health. He is LPS conserved and awaiting IMD placement.
[2019-12-25] MEDS: acetaminophen 325mg tablet PO PRN (17:19)
[2019-12-25] MEDS: atorvastatin 10mg tablet PO SCH (20:34)
[2019-12-25 20:49] VITALS: BP 103/82
--- NOTE | 2019-12-25 21:47 | NUR ---
Nursing Progress Note: Zachariah Legal hold: LPS Client on involuntary status for GD Report received from nurse with use of SBAR: Dominique GOULD Why are they here: Patient had been discharged previously with follow up at [facility] Team. Upon assessment by the [facility] [place], it was determined patient was not able to obtain, food, group home, or clothing and a 5150 for GD was written. Patient returned within hours of discharge. At time of return patient denied any symptoms related to his mental illness diagnosis of Schizophrenia. He continues to present with cognitive impairment which impedes his ability to care of himself, and requires multiple supports and external structures. Assessment What has happened this shift: Pt was sitting in the hallway at change of shift. He then spent remainder of evening watching movies in the group room. He is pleasant, smiling, engaging appropriately with staff and other patients. Pt is med compliant. S/I, H/I: Pt denies A/VH: Pt denies Sleep: see sleep hours ADL's: Independent. Group attendance: N/A Were meds taken: Yes Any med S/E: None noted or reported. Mental Status Exam Appearance: Large tall, dark messy hair, disheveled in casual street clothes. Eye contact: Good Behavior: Calm, cooperative Speech: Clear, audible, minimal Mood: Euthymic, anxious Affect: congruent with mood Thought process: Linear Thought Content: Waiting for discharge, "just chilling". Cognition: A/O X 4 Insight: Poor Judgment: Poor to fair Interventions PRN's used: pt was anxious before going to bed and requested ativan Therapeutic interventions: 1:1 assessment, therapeutic conversation, active listening, maintained a safe and therapeutic environment, monitored behaviors and need for intervention, encouragement to perform personal hygiene, Q 15 min safety checks. Restraints/seclusion/emergency medication: N/A Justification of Continued Inpatient Treatment: Pt. continues to require a safe and supportive environment, and remains GD r/t mental health. He is LPS conserved and awaiting IMD placement.
[2019-12-25] MEDS: LORazepam 1 MG tablet PO PRN (21:54)
--- NOTE | 2019-12-25 22:57 | NUR ---
medication patch removed
[2019-12-26] MEDS: pantoprazole 40mg Tablet.DR PO SCH (07:54)
[2019-12-26] MEDS: benztropine 1mg tablet PO SCH ×2 (07:54→20:40)
[2019-12-26] MEDS: nicotine 7mg patch - 24hr TD SCH (07:54)
[2019-12-26] MEDS: sennosides 8.6mg tablet PO SCH ×2 (07:54→20:40)
[2019-12-26] MEDS: propranolol 10mg tablet PO SCH ×3 (07:54→20:40)
[2019-12-26] MEDS: docusate sod 100mg capsule PO SCH ×2 (07:55→20:40)
[2019-12-26 07:58] VITALS: BP 94/46
[2019-12-26] MEDS: atomoxetine 40 MG capsule PO SCH (08:52)
--- NOTE | 2019-12-26 10:33 | NUR ---
Reassessment: Pt continues eating well documented with 75-100% PO intake receiving double protein TID and extra fruits/veggies. [facility] 12/24. Pt continues receiving routine bowel care. No nutrition intervention implemented at this time. Will continue to follow. Rec: 1. continue heart healthy diet 2. Double eggs q breakfast, double meat BIDLD; extra fruits/vegetables on meal trays; salad BIDLD all per diet order 3. routine bowel care 4. wt per rx Addendum: 12/26/19 at [address] Amended: Links added.
[2019-12-26] MEDS: acetaminophen 325mg tablet PO PRN ×2 (13:16→20:46)
[2019-12-26] MEDS: clozapine 100mg tablet PO SCH ×2 (13:17→20:40)
[2019-12-26] MEDS: clozapine 25mg tablet PO SCH (13:48)
--- NOTE | 2019-12-26 13:49 | NUR ---
Nursing Progress Note: Legal hold: LPS Client on involuntary status for GD Report received from nurse with use of SBAR: Jared Guerrero RN Why are they here: Patient had been discharged previously with follow up at [facility] Team. Upon assessment by the [facility], it was determined patient was not able to obtain, food, alf, or clothing and a 5150 for GD was written. Patient returned within hours of discharge. At time of return patient denied any symptoms related to his mental illness diagnosis of Schizophrenia. He continues to present with cognitive impairment which impedes his ability to care of himself, and requires multiple supports and external structures. Assessment What has happened this shift: Patient was resting in bed peacefully at change of shift. He slept until breakfast and ate his meal in his room. He is pleasant and cooperative with care and takes his medications as ordered without incident. Pt socializes with staff and peers. No unsafe behaviors noted. He is seen sitting in the group room watching a movie. He denies A/VH, SI and HI. He requested a hair cut and to shave and this was accommodated. Patient also had a shower. S/I, H/I: Pt denies A/VH: Pt denies, does not appear to be responding to internal stimuli. Sleep: Naps intermittently throughout the shift ADL's: Independent. Group attendance: yes Were meds taken: Yes Any med S/E: None noted or reported. Mental Status Exam Appearance: showered, hair cut, clean shave, street clothes. Eye contact: Good Behavior: Calm, cooperative Speech: Clear, audible, minimal Mood: Euthymic Affect: congruent with mood Thought process: Linear Thought Content: Waiting for discharge, "just chilling". Cognition: A/O X 4 Insight: Poor Judgment: Poor to fair Interventions PRN's used: Tylenol Therapeutic interventions: 1:1 assessment, therapeutic conversation, active listening, maintained a safe and therapeutic environment, monitored behaviors and need for intervention, encouragement to perform personal hygiene, Q 15 min safety checks. Restraints/seclusion/emergency medication: N/A Justification of Continued Inpatient Treatment: Pt. continues to require a safe and supportive environment, and remains GD r/t mental health. He is LPS conserved and awaiting IMD placement.
[2019-12-26 19:15] VITALS: BP 148/91
[2019-12-26] MEDS: atorvastatin 10mg tablet PO SCH (20:40)
--- NOTE | 2019-12-26 21:17 | NUR ---
Nursing Progress Note: Legal hold: LPS Client on involuntary status for GD Report received from nurse with use of SBAR: Jared Guerrero RN Why are they here: Patient had been discharged previously with follow up at [facility] Team. Upon assessment by the [facility], it was determined patient was not able to obtain, food, alf, or clothing and a 5150 for GD was written. Patient returned within hours of discharge. At time of return patient denied any symptoms related to his mental illness diagnosis of Schizophrenia. He continues to present with cognitive impairment which impedes his ability to care of himself, and requires multiple supports and external structures. Assessment What has happened this shift: Pt was resting in bed at change of shift. He states his day was good. He spent evening watching tv and charged his ankle bracelet. Pt states he had a shoulder injury playing football in high school and its been bothering him lately. pt took a tylenol tonight w/good effect. S/I, H/I: Pt denies A/VH: Pt denies Sleep: see sleep hours ADL's: Independent. Group attendance: no evening groups Were meds taken: Yes Any med S/E: None noted or reported. Mental Status Exam Appearance: showered, hair cut, clean shave, street clothes. Eye contact: Good Behavior: Calm, cooperative Speech: Clear, audible, minimal Mood: Euthymic Affect: congruent with mood Thought process: Linear Thought Content: Waiting for discharge, "just chilling". Cognition: A/O X 4 Insight: Poor Judgment: Poor to fair Interventions PRN's used: Tylenol Therapeutic interventions: 1:1 assessment, therapeutic conversation, active listening, maintained a safe and therapeutic environment, monitored behaviors and need for intervention, encouragement to perform personal hygiene, Q 15 min safety checks. Restraints/seclusion/emergency medication: N/A Justification of Continued Inpatient Treatment: Pt. continues to require a safe and supportive environment, and remains GD r/t mental health. He is LPS conserved and awaiting IMD placement.
[2019-12-27 07:00] VITALS: BP 91/63
[2019-12-27] MEDS: propranolol 10mg tablet PO SCH ×3 (08:00→20:09)
[2019-12-27] MEDS: sennosides 8.6mg tablet PO SCH ×2 (08:06→20:09)
[2019-12-27] MEDS: atomoxetine 40 MG capsule PO SCH (08:06)
[2019-12-27] MEDS: benztropine 1mg tablet PO SCH ×2 (08:07→20:09)
[2019-12-27] MEDS: nicotine 7mg patch - 24hr TD SCH (08:07)
[2019-12-27] MEDS: pantoprazole 40mg Tablet.DR PO SCH (08:07)
[2019-12-27] MEDS: docusate sod 100mg capsule PO SCH ×2 (08:07→20:08)
[2019-12-27] MEDS: clozapine 25mg tablet PO SCH (15:30)
[2019-12-27] MEDS: clozapine 100mg tablet PO SCH ×2 (15:30→20:08)
--- NOTE | 2019-12-27 17:28 | NUR ---
Nursing Progress Note: Legal hold: LPS Client on involuntary status for GD Report received from nurse with use of SBAR: Jared Guerrero RN Why are they here: Patient had been discharged previously with follow up at [facility] Team. Upon assessment by the [facility], it was determined patient was not able to obtain, food, usp, or clothing and a 5150 for GD was written. Patient returned within hours of discharge. At time of return patient denied any symptoms related to his mental illness diagnosis of Schizophrenia. He continues to present with cognitive impairment which impedes his ability to care of himself, and requires multiple supports and external structures. Assessment What has happened this shift: Patient sleeping at shift change. Awakened for medications and breakfast. Patient then went back to sleep until lunch. Patient's blood pressure this a.m. was 91/63, a.m. propanolol held. Patient is awake in a good mood. Watches t.v. in group room. Pt. is cooperative with care. Socializes easily with peers and staff. Patient attended [facility] group. S/I, H/I: Pt denies A/VH: Denies. Sleep: Naps in the a.m. ADL's: Independent. Group attendance: Yes. Were meds taken: Yes Any med S/E: None noted or reported. Mental Status Exam Appearance: Clean and neat in personal attire. Eye contact: Good Behavior: Calm, cooperative Speech: Clear, audible, minimal Mood: Euthymic Affect: congruent with mood Thought process: Linear Thought Content: Discharge. Cognition: A/O X 4 Insight: Poor Judgment: Poor to fair Interventions PRN's used: None. Therapeutic interventions: 1:1 assessment, therapeutic conversation, active listening, maintained a safe and therapeutic environment, monitored behaviors and need for intervention, encouragement to perform personal hygiene, Q 15 min safety checks. Restraints/seclusion/emergency medication: N/A Justification of Continued Inpatient Treatment: Pt. continues to require a safe and supportive environment, and remains GD r/t mental health. He is LPS conserved and awaiting IMD placement.
[2019-12-27 20:00] VITALS: BP 123/77
[2019-12-27] MEDS: atorvastatin 10mg tablet PO SCH (20:08)
[2019-12-27] MEDS: LORazepam 1 MG tablet PO PRN (22:02)
--- NOTE | 2019-12-28 01:22 | NUR ---
NURSING PROGRESS NOTE Legal hold: LPS conserved Client on involuntary status for GD Report received from LUIS FERNANDO Peraza with use of SBAR Why are they here: Patient had been discharged previously with follow up at [facility] Team. Upon assessment by the [facility], it was determined patient was not able to obtain, food, senior care, or clothing and a 5150 for GD was written. Patient returned within hours of discharge. At time of return patient denied any symptoms related to his mental illness diagnosis of Schizophrenia. He continues to present with cognitive impairment which impedes his ability to care of himself, and requires multiple supports and external structures. Assessment What has happened this shift: Pt walks the halls smiling. He is pleasant with staff and peers. He watches TV and is need interacting appropriately with peers. Pt denies SI/HI/AH/VH at this time. He watches TV until he is ready to go to sleep. He requests an ativan just before bed, which is given to him. S/I, H/I: Denies A/VH: internal preoccupation at times Sleep:see sleep assessment notation ADL's: Independent Group attendance: No Were Meds taken: Yes Any med S/E: No Mental Status Exam Appearance: clean Eye contact: Fair Behavior:paces, smiles, watches TV Speech: Normal Mood: Euthymic Affect: Flat Thought process: Linear Thought Content: circumstantial Cognition: Alert Insight: Poor Judgment: Poor Interventions PRN's used: ativan Therapeutic interventions: AM assessment; prompts to shower and attend groups and get up for meals; medication administration/education/monitoring, Q 15 min safety checks. Restraints/seclusion/emergency medication: N/A Justification of Continued Inpatient Treatment: Pt is gravely disabled, he is LPS conserved, he continues to need medication adjustment and monitoring and a safe and supportive environment
[2019-12-28] MEDS: atomoxetine 40 MG capsule PO SCH (08:11)
[2019-12-28] MEDS: benztropine 1mg tablet PO SCH ×2 (08:11→20:21)
[2019-12-28] MEDS: pantoprazole 40mg Tablet.DR PO SCH (08:11)
[2019-12-28] MEDS: sennosides 8.6mg tablet PO SCH ×2 (08:11→20:20)
[2019-12-28] MEDS: docusate sod 100mg capsule PO SCH ×2 (08:11→20:20)
[2019-12-28] MEDS: nicotine 7mg patch - 24hr TD SCH (08:11)
[2019-12-28] MEDS: propranolol 10mg tablet PO SCH ×3 (08:11→20:21)
[2019-12-28 08:34] VITALS: BP 116/65
[2019-12-28] MEDS: clozapine 25mg tablet PO SCH (12:58)
[2019-12-28] MEDS: clozapine 100mg tablet PO SCH ×2 (12:58→20:22)
[2019-12-28] MEDS: NICOTINE POLACRILEX 2 MG LOZENGE BC PRN ×2 (13:00→20:24)
--- NOTE | 2019-12-28 16:33 | NUR ---
Nursing Progress Note: Legal hold: LPS Client on involuntary status for GD Report received from nurse with use of SBAR: Jared Guerrero RN Why are they here: Patient had been discharged previously with follow up at [facility] Team. Upon assessment by the [facility], it was determined patient was not able to obtain, food, long-term, or clothing and a 5150 for GD was written. Patient returned within hours of discharge. At time of return patient denied any symptoms related to his mental illness diagnosis of Schizophrenia. He continues to present with cognitive impairment which impedes his ability to care of himself, and requires multiple supports and external structures. Assessment What has happened this shift: Patient sleeping at shift change. Awakened for medications and breakfast. Patient then went back to sleep until lunch. Patient is awake in a good mood. Watches t.v. in group room. Pt. is cooperative with care. Patient sitting up in recreation room watching television and socializing with staff and peers. Pt mostly joking and interacting with select staff whom he knows and feels comfortable with. S/I, H/I: Pt denies A/VH: Denies. Sleep: Naps in the a.m. ADL's: Independent. Group attendance: Yes. Were meds taken: Yes Any med S/E: None noted or reported. Mental Status Exam Appearance: Clean and neat in personal attire. Eye contact: Good Behavior: Calm, cooperative Speech: Clear, audible, minimal Mood: Euthymic Affect: congruent with mood Thought process: Linear Thought Content: Discharge. Cognition: A/O X 4 Insight: Poor Judgment: Poor to fair Interventions PRN's used: None. Therapeutic interventions: 1:1 assessment, therapeutic conversation, active listening, maintained a safe and therapeutic environment, monitored behaviors and need for intervention, encouragement to perform personal hygiene, Q 15 min safety checks. Restraints/seclusion/emergency medication: N/A Justification of Continued Inpatient Treatment: Pt. continues to require a safe and supportive environment, and remains GD r/t mental health. He is LPS conserved and awaiting IMD placement.
[2019-12-28 19:00] VITALS: BP 122/75
[2019-12-28] MEDS: atorvastatin 10mg tablet PO SCH (20:21)
[2019-12-28] MEDS: LORazepam 1 MG tablet PO PRN (22:05)
--- NOTE | 2019-12-29 01:55 | NUR ---
NURSING PROGRESS NOTE Legal hold: LPS conserved Client on involuntary status for GD Report received from LUIS FERNANDO Martinez with use of SBAR Why are they here: Patient had been discharged previously with follow up at [facility] Team. Upon assessment by the [facility], it was determined patient was not able to obtain, food, long-term, or clothing and a 5150 for GD was written. Patient returned within hours of discharge. At time of return patient denied any symptoms related to his mental illness diagnosis of Schizophrenia. He continues to present with cognitive impairment which impedes his ability to care of himself, and requires multiple supports and external structures. Assessment What has happened this shift: Pt walks the halls smiling and laughing at times. He says his day went "great". He is observed socializing with peers happily. Pt denies SI/HI/AH/VH at this time. He watches TV until he is ready to go to sleep. He requests an ativan just before bed, which is given to him. S/I, H/I: Denies A/VH: internal preoccupation at times Sleep:see sleep assessment notation ADL's: Independent Group attendance: No Were Meds taken: Yes Any med S/E: No Mental Status Exam Appearance: clean Eye contact: Fair Behavior:paces, smiles, watches TV Speech: Normal Mood: Euthymic Affect: content Thought process: Linear Thought Content: circumstantial Cognition: Alert Insight: Poor Judgment: Poor Interventions PRN's used: ativan Therapeutic interventions: AM assessment; prompts to shower and attend groups and get up for meals; medication administration/education/monitoring, Q 15 min safety checks. Restraints/seclusion/emergency medication: N/A Justification of Continued Inpatient Treatment: Pt is gravely disabled, he is LPS conserved, he continues to need medication adjustment and monitoring and a safe and supportive environment
[2019-12-29] MEDS: sennosides 8.6mg tablet PO SCH ×2 (08:13→20:39)
[2019-12-29] MEDS: pantoprazole 40mg Tablet.DR PO SCH (08:13)
[2019-12-29] MEDS: docusate sod 100mg capsule PO SCH ×2 (08:13→20:36)
[2019-12-29] MEDS: atomoxetine 40 MG capsule PO SCH (08:13)
[2019-12-29] MEDS: nicotine 7mg patch - 24hr TD SCH (08:13)
[2019-12-29] MEDS: benztropine 1mg tablet PO SCH ×2 (08:13→20:39)
[2019-12-29] MEDS: propranolol 10mg tablet PO SCH ×3 (08:14→20:37)
[2019-12-29 08:55] VITALS: BP 143/88
[2019-12-29] MEDS: clozapine 25mg tablet PO SCH (13:47)
[2019-12-29] MEDS: clozapine 100mg tablet PO SCH ×2 (13:47→20:40)
--- NOTE | 2019-12-29 16:19 | NUR ---
Nursing Progress Note: Legal hold: LPS Client on involuntary status for GD Report received from nurse with use of SBAR: Jared Guerrero RN Why are they here: Patient had been discharged previously with follow up at [facility] Team. Upon assessment by the [facility], it was determined patient was not able to obtain, food, nursing home, or clothing and a 5150 for GD was written. Patient returned within hours of discharge. At time of return patient denied any symptoms related to his mental illness diagnosis of Schizophrenia. He continues to present with cognitive impairment which impedes his ability to care of himself, and requires multiple supports and external structures. Assessment What has happened this shift: Patient sleeping at shift change. Awakened for medications and breakfast. Patient then went back to sleep until lunch. Patient is awake in a good mood. Watches t.v. in group room. Pt. is cooperative with care. Patient sitting up in recreation room watching television and socializing with staff and peers. Pt mostly joking and interacting with select staff whom he knows and feels comfortable with. Pt was caught provoking peers and laughed and said he was just bored. S/I, H/I: Pt denies A/VH: Denies. Sleep: Naps in the a.m. ADL's: Independent. Group attendance: Yes. Were meds taken: Yes Any med S/E: None noted or reported. Mental Status Exam Appearance: Clean and neat in personal attire. Eye contact: Good Behavior: Calm, cooperative Speech: Clear, audible, minimal Mood: Euthymic Affect: congruent with mood Thought process: Linear Thought Content: Discharge. Cognition: A/O X 4 Insight: Poor Judgment: Poor to fair Interventions PRN's used: None. Therapeutic interventions: 1:1 assessment, therapeutic conversation, active listening, maintained a safe and therapeutic environment, monitored behaviors and need for intervention, encouragement to perform personal hygiene, Q 15 min safety checks. Restraints/seclusion/emergency medication: N/A Justification of Continued Inpatient Treatment: Pt. continues to require a safe and supportive environment, and remains GD r/t mental health. He is LPS conserved and awaiting IMD placement.
[2019-12-29] MEDS: NICOTINE POLACRILEX 2 MG LOZENGE BC PRN (18:23)
[2019-12-29 19:00] VITALS: BP 119/76
[2019-12-29] MEDS: atorvastatin 10mg tablet PO SCH (20:35)
[2019-12-29] MEDS: LORazepam 1 MG tablet PO PRN (20:39)
--- NOTE | 2019-12-29 23:55 | NUR ---
NURSING PROGRESS NOTE Legal hold: LPS conserved Client on involuntary status for GD Report received from LUIS FERNANDO Martinez with use of SBAR Why are they here: Patient had been discharged previously with follow up at [facility] Team. Upon assessment by the [facility], it was determined patient was not able to obtain, food, jail, or clothing and a 5150 for GD was written. Patient returned within hours of discharge. At time of return patient denied any symptoms related to his mental illness diagnosis of Schizophrenia. He continues to present with cognitive impairment which impedes his ability to care of himself, and requires multiple supports and external structures. Assessment What has happened this shift: Pt paces the halls smiling and laughing. He denies Ah/VH but appears to be responding to internal stimuli at times, although it seems to be very pleasant. He is talkative with staff and peers and walks the halls with a male peer in conversation. He watches TV and charges his ankle monitor. Pt denies SI/HI/AH/VH at this time. Pt given PRN ativan with HS medication. S/I, H/I: Denies A/VH: internal preoccupation at times Sleep:see sleep assessment notation ADL's: Independent Group attendance: No Were Meds taken: Yes Any med S/E: No Mental Status Exam Appearance: clean Eye contact: Fair Behavior:paces, smiles, watches TV Speech: Normal Mood: Euthymic Affect: Flat Thought process: Linear Thought Content: circumstantial Cognition: Alert Insight: Poor Judgment: Poor Interventions PRN's used: ativan Therapeutic interventions: AM assessment; prompts to shower and attend groups and get up for meals; medication administration/education/monitoring, Q 15 min safety checks. Restraints/seclusion/emergency medication: N/A Justification of Continued Inpatient Treatment: Pt is gravely disabled, he is LPS conserved, he continues to need medication adjustment and monitoring and a safe and supportive environment
[2019-12-30] MEDS: propranolol 10mg tablet PO SCH ×3 (07:49→20:00)
[2019-12-30] MEDS: nicotine 7mg patch - 24hr TD SCH (07:49)
[2019-12-30] MEDS: benztropine 1mg tablet PO SCH ×2 (07:49→19:55)
[2019-12-30] MEDS: sennosides 8.6mg tablet PO SCH ×2 (07:49→19:55)
[2019-12-30] MEDS: docusate sod 100mg capsule PO SCH ×2 (07:49→19:55)
[2019-12-30] MEDS: pantoprazole 40mg Tablet.DR PO SCH (07:49)
[2019-12-30] MEDS: atomoxetine 40 MG capsule PO SCH (07:49)
[2019-12-30 08:00] VITALS: BP 104/61
[2019-12-30] MEDS: NICOTINE POLACRILEX 2 MG LOZENGE BC PRN ×2 (10:52→18:58)
--- NOTE | 2019-12-30 12:03 | NUR ---
Nursing Progress Note Legal hold: LPS Client on involuntary status for GD Report received from RN with use of SBAR Why are they here: Patient had been discharged previously with follow up at [facility] Team. Upon assessment by the [facility], it was determined patient was not able to obtain, food, custodial, or clothing and a 5150 for GD was written. Patient returned within hours of discharge. At time of return patient denied any symptoms related to his mental illness diagnosis of Schizophrenia. He continues to present with cognitive impairment which impedes his ability to care of himself, and requires multiple supports and external structures. Assessment What has happened this shift: Received Pt in bed sleeping w/o distress at beginning of shift. He awoke for vitals and was pleasant/cooperative and sleepy. Pt took AM meds w/o issue and ate breakfast and all meals in his room. Pt took naps today and liked to sit in hallway and observe unit activities. Used a Nicotine Nhan. X1 on this shift and explained to him that he can use them Q8hrs and how he may want to space them thru day. We talked about possible placement at [facility]; he is happy to possibly be accepted at a few different places and looks forward to leaving. Pt has been on [facility] for months and appears bored at times and wants to move on to his placement. S/I, H/I: Pt denies A/VH: Denies. Sleep: Naps ADL's: Independent Group attendance: No groups today Were meds taken: Yes Any med S/E: None noted or reported. Mental Status Exam Appearance: Clean and neat in personal attire. Eye contact: Good Behavior: Calm, cooperative Speech: Clear, audible, minimal Mood: Euthymic Affect: congruent with mood Thought process: Linear Thought Content: Discharge. Cognition: A/O X 4 Insight: Poor Judgment: Poor Interventions PRN's used: None. Therapeutic interventions: 1:1 assessment, therapeutic conversation, active listening, maintained a safe and therapeutic environment, monitored behaviors and need for intervention, encouragement to perform personal hygiene, Q 15 min safety checks. Restraints/seclusion/emergency medication: N/A Justification of Continued Inpatient Treatment: Pt. continues to require a safe and supportive environment, and remains GD r/t mental health. He is LPS conserved and awaiting IMD placement.
[2019-12-30] MEDS: clozapine 25mg tablet PO SCH (13:36)
[2019-12-30] MEDS: clozapine 100mg tablet PO SCH ×2 (13:36→20:00)
[2019-12-30 19:41] VITALS: BP 137/79
[2019-12-30] MEDS: atorvastatin 10mg tablet PO SCH (20:00)
[2019-12-30] MEDS: LORazepam 1 MG tablet PO PRN (21:48)
--- NOTE | 2019-12-30 23:25 | NUR ---
Nursing Progress Note Legal hold: LPS Client on involuntary status for GD Report received from LUIS FERNANDO Martinez with use of SBAR Why are they here: Patient had been discharged previously with follow up at [facility] Team. Upon assessment by the [facility], it was determined patient was not able to obtain, food, longterm, or clothing and a 5150 for GD was written. Patient returned within hours of discharge. At time of return patient denied any symptoms related to his mental illness diagnosis of Schizophrenia. He continues to present with cognitive impairment which impedes his ability to care of himself, and requires multiple supports and external structures. Assessment What has happened this shift: Pt was in the rec room watching tv at change of shift and for most of evening. pt appears to be bored, but is excited about possible placement. As usual, pt is friendly and cooperative for 1:1 but does not offer more than one word answers to questions. Pt reported having right shoulder pain but refused tylenol for pain. Pt denies si/hi and a/vh and was not seen responding to internal stimuli this evening. Pt was appropriate with staff and other patients and went to bed without issue. S/I, H/I: Pt denies A/VH: Denies. Sleep: Naps ADL's: Independent Group attendance: No groups today Were meds taken: Yes Any med S/E: None noted or reported. Mental Status Exam Appearance: Clean and neat in personal attire. Eye contact: Good Behavior: Calm, cooperative Speech: Clear, audible, minimal Mood: Euthymic Affect: congruent with mood Thought process: Linear Thought Content: Discharge. Cognition: A/O X 4 Insight: Poor Judgment: Poor Interventions PRN's used: Ativan Therapeutic interventions: 1:1 assessment, therapeutic conversation, active listening, maintained a safe and therapeutic environment, monitored behaviors and need for intervention, encouragement to perform personal hygiene, Q 15 min safety checks. Restraints/seclusion/emergency medication: N/A Justification of Continued Inpatient Treatment: Pt. continues to require a safe and supportive environment, and remains GD r/t mental health. He is LPS conserved and awaiting IMD placement.
[2019-12-31 08:00] VITALS: BP 126/64
[2019-12-31] MEDS: pantoprazole 40mg Tablet.DR PO SCH (08:23)
[2019-12-31] MEDS: nicotine 7mg patch - 24hr TD SCH (08:23)
[2019-12-31] MEDS: benztropine 1mg tablet PO SCH ×2 (08:23→20:23)
[2019-12-31] MEDS: propranolol 10mg tablet PO SCH ×3 (08:23→20:22)
[2019-12-31] MEDS: docusate sod 100mg capsule PO SCH ×2 (08:23→20:23)
[2019-12-31] MEDS: sennosides 8.6mg tablet PO SCH ×2 (08:23→20:23)
[2019-12-31] MEDS: atomoxetine 40 MG capsule PO SCH (08:23)
[2019-12-31] MEDS: NICOTINE POLACRILEX 2 MG LOZENGE BC PRN (08:52)
[2019-12-31] MEDS: clozapine 25mg tablet PO SCH (13:57)
[2019-12-31] MEDS: clozapine 100mg tablet PO SCH ×2 (13:57→20:23)
--- NOTE | 2019-12-31 14:42 | NUR ---
Nursing Progress Note: Legal hold: LPS Client on involuntary status for GD Report received from nurse with use of SBAR: Jared Guerrero RN Why are they here: Patient had been discharged previously with follow up at [facility] Team. Upon assessment by the [facility], it was determined patient was not able to obtain, food, snf, or clothing and a 5150 for GD was written. Patient returned within hours of discharge. At time of return patient denied any symptoms related to his mental illness diagnosis of Schizophrenia. He continues to present with cognitive impairment which impedes his ability to care of himself, and requires multiple supports and external structures. Assessment What has happened this shift: Patient sleeping at shift change. Awakened for medications and breakfast. Pt visible on the unit today. Pt happy and asked staff, Hey, isnt it Wednesday? and he was up watching movies and playing [employer] with staff and peers. Pt denies suicidal thoughts and denies depression and denies auditory hallucinations. S/I, H/I: Pt denies A/VH: Denies. Sleep: Naps in the a.m. ADL's: Independent. Group attendance: Yes. Were meds taken: Yes Any med S/E: None noted or reported. Mental Status Exam Appearance: Clean and neat in personal attire. Eye contact: Good Behavior: Calm, cooperative Speech: Clear, audible, minimal Mood: Euthymic Affect: congruent with mood Thought process: Linear Thought Content: Discharge. Cognition: A/O X 4 Insight: Poor Judgment: Poor to fair Interventions PRN's used: nicotine lozenge Therapeutic interventions: 1:1 assessment, therapeutic conversation, active listening, maintained a safe and therapeutic environment, monitored behaviors and need for intervention, encouragement to perform personal hygiene, Q 15 min safety checks. Restraints/seclusion/emergency medication: N/A Justification of Continued Inpatient Treatment: Pt. continues to require a safe and supportive environment, and remains GD r/t mental health. He is LPS conserved and awaiting IMD placement.
[2019-12-31 16:16] LABS: BASOPHILS % (AUTO) 0.4 % (0-1); EOSINOPHILS # (AUTO) 0.2 X10'3 (0-0.9); EOSINOPHILS % (AUTO) 2.1 % (0-6); HEMATOCRIT 43.2 % (42.0-52.0); HEMOGLOBIN 14.5 g/dl (14.0-17.9); LYMPHOCYTES # (AUTO) 2.4 X10'3 (1.1-4.8); LYMPHOCYTES % (AUTO) 26.2 % (21-51); MEAN CORPUSCULAR HEMOGLOBIN 27.9 PG (27.0-31.0); MEAN CORPUSCULAR HGB CONC 33.5 g/dL (33.0-36.5); MEAN CORPUSCULAR VOLUME 83.2 FL (78-98); MEAN PLATELET VOLUME 8.2 FL (7.4-10.4); MONOCYTES # (AUTO) 0.8 X10'3 (0-0.9); MONOCYTES % (AUTO) 8.3 % (2-12); NEUTROPHILS # (AUTO) 5.8 X10'3 (1.8-7.7); PLATELET COUNT 198 X10'3 (140-440); RED BLOOD COUNT 5.19 X10'6 (4.70-6.10); RED CELL DISTRIBUTION WIDTH 15.1 % (11.5-14.5); WHITE BLOOD COUNT 9.2 X10'3 (4.5-11.0)
[2019-12-31] MEDS: naproxen 500mg tablet PO SCH (17:32)
[2019-12-31 20:00] VITALS: BP 121/82
[2019-12-31] MEDS: atorvastatin 10mg tablet PO SCH (20:23)
[2019-12-31] MEDS: LORazepam 1 MG tablet PO PRN (21:40)
--- NOTE | 2020-01-01 00:30 | NUR ---
Nursing Progress Note: Legal hold: LPS Client on involuntary status for GD Report received from nurse with use of SBAR: Jared Martinez RN Why are they here: Patient had been discharged previously with follow up at [facility] Team. Upon assessment by the [facility], it was determined patient was not able to obtain, food, [facility], or clothing and a 5150 for GD was written. Patient returned within hours of discharge. At time of return patient denied any symptoms related to his mental illness diagnosis of Schizophrenia. He continues to present with cognitive impairment which impedes his ability to care of himself, and requires multiple supports and external structures. Assessment What has happened this shift: Patient in community room watching a movie and charging his ankle monitor. He ate snack and was med compliant. He is social with both peers and staff. After movie pt in hallway talking to him self before going to bed. S/I, H/I: Pt denies A/VH: Denies. Sleep: Naps in the a.m. ADL's: Independent. Group attendance: Yes. Were meds taken: Yes Any med S/E: None noted or reported. Mental Status Exam Appearance: Clean and neat in personal attire. Eye contact: Good Behavior: Calm, cooperative Speech: Clear, audible, minimal Mood: Euthymic Affect: congruent with mood Thought process: Linear Thought Content: Discharge. Cognition: A/O X 4 Insight: Poor Judgment: Poor to fair Interventions PRN's used: Ativan Therapeutic interventions: 1:1 assessment, therapeutic conversation, active listening, maintained a safe and therapeutic environment, monitored behaviors and need for intervention, encouragement to perform personal hygiene, Q 15 min safety checks. Restraints/seclusion/emergency medication: N/A Justification of Continued Inpatient Treatment: Pt. continues to require a safe and supportive environment, and remains GD r/t mental health. He is LPS conserved and awaiting IMD placement.
[2020-01-01] MEDS: atomoxetine 40 MG capsule PO SCH (07:58)
[2020-01-01] MEDS: propranolol 10mg tablet PO SCH ×3 (07:58→20:17)
[2020-01-01] MEDS: docusate sod 100mg capsule PO SCH ×2 (07:58→20:16)
[2020-01-01] MEDS: pantoprazole 40mg Tablet.DR PO SCH (07:58)
[2020-01-01] MEDS: nicotine 7mg patch - 24hr TD SCH (07:58)
[2020-01-01] MEDS: naproxen 500mg tablet PO SCH ×2 (07:58→17:53)
[2020-01-01] MEDS: benztropine 1mg tablet PO SCH ×2 (07:58→20:16)
[2020-01-01] MEDS: sennosides 8.6mg tablet PO SCH ×2 (07:58→20:16)
[2020-01-01] MEDS: NICOTINE POLACRILEX 2 MG LOZENGE BC PRN ×2 (08:02→17:54)
[2020-01-01 08:56] VITALS: BP 112/67
[2020-01-01] MEDS: clozapine 25mg tablet PO SCH (13:17)
[2020-01-01] MEDS: clozapine 100mg tablet PO SCH ×2 (13:17→20:18)
--- NOTE | 2020-01-01 15:05 | NUR ---
Nursing Progress Note: Legal hold: LPS Client on involuntary status for GD Report received from nurse with use of SBAR: LUIS FERNANDO Coley Why are they here: Patient had been discharged previously with follow up at [facility] Team. Upon assessment by the [facility], it was determined patient was not able to obtain, food, long term, or clothing and a 5150 for GD was written. Patient returned within hours of discharge. At time of return patient denied any symptoms related to his mental illness diagnosis of Schizophrenia. He continues to present with cognitive impairment which impedes his ability to care of himself, and requires multiple supports and external structures. Assessment What has happened this shift: Patient sleeping at shift change. Awakened for medications and breakfast. Pt visible on the unit today. Pt has affect appropriate to situation. Pt up and watching television with peers, laughing and interacting appropriately. Pt denies suicidal thoughts and denies depression and denies auditory hallucinations. S/I, H/I: Pt denies A/VH: Denies. Sleep: Naps in the a.m. ADL's: Independent. Group attendance: n/a. Were meds taken: Yes Any med S/E: None noted or reported. Mental Status Exam Appearance: Clean and neat in personal attire. Eye contact: Good Behavior: Calm, cooperative Speech: Clear, audible, minimal Mood: Euthymic Affect: congruent with mood Thought process: Linear Thought Content: Discharge. Cognition: A/O X 4 Insight: Poor Judgment: Poor to fair Interventions PRN's used: nicotine lozenge Therapeutic interventions: 1:1 assessment, therapeutic conversation, active listening, maintained a safe and therapeutic environment, monitored behaviors and need for intervention, encouragement to perform personal hygiene, Q 15 min safety checks. Restraints/seclusion/emergency medication: N/A Justification of Continued Inpatient Treatment: Pt. continues to require a safe and supportive environment, and remains GD r/t mental health. He is LPS conserved and awaiting IMD placement.
[2020-01-01 20:00] VITALS: BP 138/78
[2020-01-01] MEDS: atorvastatin 10mg tablet PO SCH (20:16)
[2020-01-01] MEDS: LORazepam 1 MG tablet PO PRN (21:46)
--- NOTE | 2020-01-01 23:16 | NUR ---
Nursing Progress Note: Legal hold: LPS Client on involuntary status for GD Report received from nurse with use of SBAR: LUIS FERNANDO Martinez Why are they here: Patient had been discharged previously with follow up at [facility] Team. Upon assessment by the [facility], it was determined patient was not able to obtain, food, senior care, or clothing and a 5150 for GD was written. Patient returned within hours of discharge. At time of return patient denied any symptoms related to his mental illness diagnosis of Schizophrenia. He continues to present with cognitive impairment which impedes his ability to care of himself, and requires multiple supports and external structures. Assessment What has happened this shift: Patient was awake and in the rec room watching tv with peers at change of shift. He was friendly and talkative with staff and peers. He denies SI/HI and AH/VH yet continues to have conversations with him self. When asked about D/C he states I like it here. A/VH: Denies. Sleep: Naps in the a.m. ADL's: Independent. Group attendance: n/a. Were meds taken: Yes Any med S/E: None noted or reported. Mental Status Exam Appearance: Clean and neat in personal attire. Eye contact: Good Behavior: Calm, cooperative Speech: Clear, audible, minimal Mood: Euthymic Affect: congruent with mood Thought process: Linear Thought Content: Discharge. Cognition: A/O X 4 Insight: Poor Judgment: Poor to fair Interventions PRN's used: Ativan Therapeutic interventions: 1:1 assessment, therapeutic conversation, active listening, maintained a safe and therapeutic environment, monitored behaviors and need for intervention, encouragement to perform personal hygiene, Q 15 min safety checks. Restraints/seclusion/emergency medication: N/A Justification of Continued Inpatient Treatment: Pt. continues to require a safe and supportive environment, and remains GD r/t mental health. He is LPS conserved and awaiting IMD placement.
[2020-01-02 07:00] VITALS: BP 95/52
[2020-01-02] MEDS: propranolol 10mg tablet PO SCH ×3 (08:00→20:14)
[2020-01-02] MEDS: sennosides 8.6mg tablet PO SCH ×2 (08:05→20:15)
[2020-01-02] MEDS: atomoxetine 40 MG capsule PO SCH (08:05)
[2020-01-02] MEDS: pantoprazole 40mg Tablet.DR PO SCH (08:06)
[2020-01-02] MEDS: benztropine 1mg tablet PO SCH ×2 (08:06→20:14)
[2020-01-02] MEDS: docusate sod 100mg capsule PO SCH ×2 (08:06→20:14)
[2020-01-02] MEDS: nicotine 7mg patch - 24hr TD SCH (08:08)
[2020-01-02] MEDS: naproxen 500mg tablet PO SCH ×2 (08:34→17:49)
--- NOTE | 2020-01-02 10:28 | NUR ---
Reassessment: Pt PO 100% meals meeting needs. LBM 12/30. No nutrition concerns at this time. Will continue to monitor. Rec: 1. continue heart healthy diet 2. Double eggs q breakfast, double meat BIDLD; extra fruits/vegetables on meal trays; salad BIDLD all per diet order 3. routine bowel care 4. wt per rx Addendum: 01/02/20 at [address] Amended: Links added.
[2020-01-02] MEDS: clozapine 25mg tablet PO SCH (13:22)
[2020-01-02] MEDS: clozapine 100mg tablet PO SCH ×2 (13:22→20:15)
--- NOTE | 2020-01-02 16:52 | NUR ---
Nursing Progress Note Legal hold: LPS Client on involuntary status for GD Report received from Yolanda GOULD with use of SBAR: Why are they here: Patient had been discharged previously with follow up at [facility] Team. Upon assessment by the [facility], it was determined patient was not able to obtain, food, halfway, or clothing and a 5150 for GD was written. Patient returned within hours of discharge. At time of return patient denied any symptoms related to his mental illness diagnosis of Schizophrenia. He continues to present with cognitive impairment which impedes his ability to care of himself, and requires multiple supports and external structures. Assessment What has happened this shift: Received pt sleeping at shift change. Awakened for medications and breakfast. Stayed awake watching music videos with peers. Pt. is in a good mood and is appreciative of care received. Pt. is awaiting placement and gives update on current status. Pt. has been accepted at three facilities, but there is no bed available at this time. A.M. dose of Propanolol was held due to low blood pressure of 95/52. S/I, H/I: Pt denies A/VH: Denies. Sleep: 7.75 hrs NOC, napped. ADL's: Independent. Group attendance: n/a. Were meds taken: Yes Any med S/E: None noted or reported. Mental Status Exam Appearance: Well groomed in personal attire. Eye contact: Good Behavior: Calm, cooperative Speech: Clear, audible, minimal Mood: Euthymic Affect: congruent with mood Thought process: Linear Thought Content: Placement. Cognition: A/O X 4 Insight: Poor Judgment: Poor to fair Interventions PRN's used: None. Therapeutic interventions: 1:1 assessment, therapeutic conversation, active listening, maintained a safe and therapeutic environment, monitored behaviors and need for intervention, encouragement to perform personal hygiene, Q 15 min safety checks. Restraints/seclusion/emergency medication: N/A Justification of Continued Inpatient Treatment: Pt. continues to require a safe and supportive environment, and remains GD r/t mental health. He is LPS conserved and awaiting IMD placement.
[2020-01-02 20:00] VITALS: BP 136/84
[2020-01-02] MEDS: atorvastatin 10mg tablet PO SCH (20:14)
[2020-01-02] MEDS: LORazepam 1 MG tablet PO PRN (22:04)
--- NOTE | 2020-01-02 23:53 | NUR ---
Nursing Progress Note: Legal hold: LPS Client on involuntary status for GD Report received from nurse with use of SBAR: LUIS FERNANDO Martinez Why are they here: Patient had been discharged previously with follow up at [facility] Team. Upon assessment by the [facility], it was determined patient was not able to obtain, food, fci, or clothing and a 5150 for GD was written. Patient returned within hours of discharge. At time of return patient denied any symptoms related to his mental illness diagnosis of Schizophrenia. He continues to present with cognitive impairment which impedes his ability to care of himself, and requires multiple supports and external structures. Assessment What has happened this shift: Patient was awake and in the rec room watching tv with peers at change of shift. As usual, pt was friendly and cooperative for all assessments. Pt spent most of the evening socializing and watching tv. pt was upbeat and joking around with staff in an appropriate manner. Pt denies any complaints except for the chronic sore right shoulder. A/VH: Denies. Sleep: see sleep assessment ADL's: Independent. Group attendance: n/a. Were meds taken: Yes Any med S/E: None noted or reported. Mental Status Exam Appearance: Clean and neat in personal attire. Eye contact: Good Behavior: Calm, cooperative, silly Speech: Clear, audible, Mood: Euthymic Affect: congruent with mood Thought process: Linear Thought Content: Discharge. Cognition: A/O X 4 Insight: Poor Judgment: Poor to fair Interventions PRN's used: Ativan Therapeutic interventions: 1:1 assessment, therapeutic conversation, active listening, maintained a safe and therapeutic environment, monitored behaviors and need for intervention, encouragement to perform personal hygiene, Q 15 min safety checks. Restraints/seclusion/emergency medication: N/A Justification of Continued Inpatient Treatment: Pt. continues to require a safe and supportive environment, and remains GD r/t mental health. He is LPS conserved and awaiting IMD placement.
[2020-01-03] MEDS: propranolol 10mg tablet PO SCH ×3 (07:55→21:32)
[2020-01-03] MEDS: atomoxetine 40 MG capsule PO SCH (07:55)
[2020-01-03] MEDS: naproxen 500mg tablet PO SCH ×2 (07:55→17:22)
[2020-01-03] MEDS: docusate sod 100mg capsule PO SCH ×2 (07:55→21:33)
[2020-01-03 07:56] VITALS: BP 106/63
[2020-01-03] MEDS: pantoprazole 40mg Tablet.DR PO SCH (07:56)
[2020-01-03] MEDS: benztropine 1mg tablet PO SCH ×2 (07:56→21:33)
[2020-01-03] MEDS: sennosides 8.6mg tablet PO SCH ×2 (07:56→21:32)
[2020-01-03] MEDS: nicotine 7mg patch - 24hr TD SCH (07:56)
[2020-01-03] MEDS: clozapine 25mg tablet PO SCH (13:19)
[2020-01-03] MEDS: clozapine 100mg tablet PO SCH ×2 (13:19→21:33)
--- NOTE | 2020-01-03 17:12 | NUR ---
Nursing Progress Note Legal hold: LPS Client on involuntary status for GD Report received from Yolanda with use of SBAR: LUIS FERNANDO Guerrero Why are they here: Patient had been discharged previously with follow up at [facility] Team. Upon assessment by the [facility], it was determined patient was not able to obtain, food, care home, or clothing and a 5150 for GD was written. Patient returned within hours of discharge. At time of return patient denied any symptoms related to his mental illness diagnosis of Schizophrenia. He continues to present with cognitive impairment which impedes his ability to care of himself, and requires multiple supports and external structures. Assessment What has happened this shift: Patient awake for breakfast and medications, then napped until noon. Patient takes all medications without incident. Patient is resting most of the day, declined outdoor patio group. No complaints this shift. S/I, H/I: Pt denies A/VH: Denies. Sleep: 7.75 hrs NOC, napped. ADL's: Independent. Group attendance: n/a. Were meds taken: Yes Any med S/E: None noted or reported. Mental Status Exam Appearance: Neat and clean in personal attire. Eye contact: Good Behavior: Calm, cooperative Speech: Clear, audible, minimal Mood: Euthymic Affect: congruent with mood Thought process: Linear Thought Content: Placement. Cognition: A/O X 4 Insight: Poor Judgment: Poor to fair Interventions PRN's used: None. Therapeutic interventions: 1:1 assessment, therapeutic conversation, active listening, maintained a safe and therapeutic environment, monitored behaviors and need for intervention, encouragement to perform personal hygiene, Q 15 min safety checks. Restraints/seclusion/emergency medication: N/A Justification of Continued Inpatient Treatment: Pt. continues to require a safe and supportive environment, and remains GD r/t mental health. He is LPS conserved and awaiting IMD placement.
[2020-01-03] MEDS: NICOTINE POLACRILEX 2 MG LOZENGE BC PRN (18:03)
[2020-01-03 20:00] VITALS: BP 128/71
[2020-01-03] MEDS: atorvastatin 10mg tablet PO SCH (21:33)
[2020-01-03] MEDS: LORazepam 1 MG tablet PO PRN (23:42)
--- NOTE | 2020-01-04 00:17 | NUR ---
Nursing Progress Note Legal hold: LPS Client on involuntary status for GD Report received from LUIS FERNANDO Cary with use of SBAR: Why are they here: Patient had been discharged previously with follow up at [facility] Team. Upon assessment by the [facility], it was determined patient was not able to obtain, food, [facility], or clothing and a 5150 for GD was written. Patient returned within hours of discharge. At time of return patient denied any symptoms related to his mental illness diagnosis of Schizophrenia. He continues to present with cognitive impairment which impedes his ability to care of himself, and requires multiple supports and external structures. Assessment What has happened this shift: Pt as observed ambulating the isles during shift change. He greets this health underwriter and appears cheerful as usual. He states that he is hopeful to be living in a month. He spent most of the time in the recreation room watching TV and socializing appropriately with other patients. He denies any A/VH however he does appear to be responding to internal stimuli, looks around and makes several hand gestures when asked about this. He also makes some delusional statements about Geodon. He believes that his doctor put him back on this medication and is still felling the effects form it but looking at his eMar, pt has not been getting this medication. Pt was cooperative during 1:1 physical assessment and took all his HS meds without any issues. He continues to pace the isles and he appears to talking to someone that isntt there. He came up to this health underwriter and requested Ativan for his increased intrusive thoughts. This was given with good effect and pt retired to bed shortly after. S/I, H/I: Pt denies A/VH: Denies, does appear to be responding to internal stimuli. Sleep: currently sleeping, see sleep assessment for total hours ADL's: Independent. 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 Mental Status Exam Appearance: Appropriate, wearing personal clothing, pt appears overweight. Eye contact: Good Behavior: Cooperative, socializing appropriately with other staff and patients. Speech: Normal rate and rhythm, clear Mood: Appears cheerful and hopeful Affect: congruent with mood Thought process: Linear, somewhat delusional Thought Content: Snacks, medications, placement Cognition: A/O X 4 Insight: Poor Judgment: Poor to fair Interventions PRN's used: Ativan X1 Therapeutic interventions: 1:1 assessment, therapeutic conversation, active listening, maintained a safe and therapeutic environment, monitored behaviors and need for intervention, encouragement to perform personal hygiene, Q 15 min safety checks. Restraints/seclusion/emergency medication: N/A Justification of Continued Inpatient Treatment: Pt. continues to require a safe and supportive environment, and remains GD r/t mental health. He is LPS conserved and awaiting IMD placement.
[2020-01-04] MEDS: sennosides 8.6mg tablet PO SCH ×2 (07:56→21:22)
[2020-01-04] MEDS: atomoxetine 40 MG capsule PO SCH (07:56)
[2020-01-04] MEDS: docusate sod 100mg capsule PO SCH ×2 (07:56→21:22)
[2020-01-04] MEDS: benztropine 1mg tablet PO SCH ×2 (07:56→21:22)
[2020-01-04] MEDS: naproxen 500mg tablet PO SCH ×2 (07:56→17:13)
[2020-01-04] MEDS: propranolol 10mg tablet PO SCH ×3 (07:56→21:21)
[2020-01-04] MEDS: pantoprazole 40mg Tablet.DR PO SCH (07:56)
[2020-01-04] MEDS: nicotine 7mg patch - 24hr TD SCH (07:57)
[2020-01-04 08:00] VITALS: BP 118/73
[2020-01-04] MEDS: clozapine 25mg tablet PO SCH (13:50)
[2020-01-04] MEDS: clozapine 100mg tablet PO SCH ×2 (13:50→21:22)
--- NOTE | 2020-01-04 13:54 | NUR ---
NURSING PROGRESS NOTE Legal hold: LPS Client on involuntary status for GD Report received from Yolanda with use of SBAR: LUIS FERNANDO Guerrero Why are they here: Patient had been discharged previously with follow up at [facility] Team. Upon assessment by the [facility], it was determined patient was not able to obtain, food, prison, or clothing and a 5150 for GD was written. Patient returned within hours of discharge. At time of return patient denied any symptoms related to his mental illness diagnosis of Schizophrenia. He continues to present with cognitive impairment which impedes his ability to care of himself, and requires multiple supports and external structures. Assessment What has happened this shift: Asleep at change of shift. Up for breakfast and medications then back to sleep. Up at lunch and interacting with peers and staff. Cooperative, calm and cheerful. Watches movie in afternoon. Does not appear to be RIS. No other changes. S/I, H/I: Pt denies A/VH: Denies. Sleep: napped ADL's: Independent. Group attendance: n/a. Were meds taken: Yes Any med S/E: None noted or reported. Mental Status Exam Appearance: Neat and clean Eye contact: Good Behavior: Calm, cooperative Speech: Clear Mood: Euthymic Affect: smiling Thought process: Linear Thought Content: eating, snacks Cognition: Alert Insight: Poor Judgment: Poor to fair Interventions PRN's used: None. Therapeutic interventions: 1:1 assessment, therapeutic conversation, active listening, maintained a safe and therapeutic environment, monitored behaviors and need for intervention, encouragement to perform personal hygiene, Q 15 min safety checks. Restraints/seclusion/emergency medication: N/A Justification of Continued Inpatient Treatment: Pt. continues to require a safe and supportive environment, and remains GD r/t mental health. He is LPS conserved and awaiting IMD placement.
[2020-01-04] MEDS: NICOTINE POLACRILEX 2 MG LOZENGE BC PRN (18:03)
[2020-01-04 20:09] VITALS: BP 103/76
[2020-01-04] MEDS: atorvastatin 10mg tablet PO SCH (21:22)
[2020-01-04] MEDS: LORazepam 1 MG tablet PO PRN (22:12)
--- NOTE | 2020-01-05 00:08 | NUR ---
Nursing Progress Note Legal hold: LPS Client on involuntary status for GD Report received from KERMIT Fox with use of SBAR: Why are they here: Patient had been discharged previously with follow up at [facility] Team. Upon assessment by the [facility], it was determined patient was not able to obtain, food, retirement, or clothing and a 5150 for GD was written. Patient returned within hours of discharge. At time of return patient denied any symptoms related to his mental illness diagnosis of Schizophrenia. He continues to present with cognitive impairment which impedes his ability to care of himself, and requires multiple supports and external structures. Assessment What has happened this shift: Pt was in TV room requesting for the remote during shift change. He spent most of the evening here watching a movie. Pt was cooperative during 1:1 physical assessment and took all his HS meds without any issues. He states he had a pretty good day. Denies any hallucinations and does not appear to be responding to internal stimuli. Pt continue to perseverate on medication. He asked this machine sign writer does Wellbutrin make you high? His behavior continues to be appropriate as he socializes with other patients without any issues. There is no agitation noted and patient did not make any delusional statements. He did request an Ativan before going to sleep. S/I, H/I: denies A/VH: Denies Sleep: currently sleeping, see sleep assessment for total hours ADL's: Independent. 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 Mental Status Exam Appearance: Appropriate, wearing personal clothing, pt appears overweight. Eye contact: Good Behavior: Cooperative, socializing appropriately with other staff and patients. Speech: Normal rate and rhythm, clear Mood: Happy Affect: Appropriate Thought process: Circumstantial Thought Content: Food, medication, placement Cognition: A/O X 4 Insight: Poor Judgment: Poor to fair Interventions PRN's used: Ativan X1 Therapeutic interventions: 1:1 assessment, therapeutic conversation, active listening, maintained a safe and therapeutic environment, monitored behaviors and need for intervention, encouragement to perform personal hygiene, Q 15 min safety checks. Restraints/seclusion/emergency medication: N/A Justification of Continued Inpatient Treatment: Pt. continues to require a safe and supportive environment, and remains GD r/t mental health. He is LPS conserved and awaiting IMD placement.
[2020-01-05] MEDS: nicotine 7mg patch - 24hr TD SCH (07:56)
[2020-01-05] MEDS: atomoxetine 40 MG capsule PO SCH (07:57)
[2020-01-05] MEDS: benztropine 1mg tablet PO SCH ×2 (07:57→21:30)
[2020-01-05] MEDS: naproxen 500mg tablet PO SCH ×2 (07:57→17:30)
[2020-01-05] MEDS: pantoprazole 40mg Tablet.DR PO SCH (07:57)
[2020-01-05] MEDS: docusate sod 100mg capsule PO SCH ×2 (07:57→21:30)
[2020-01-05] MEDS: propranolol 10mg tablet PO SCH ×3 (07:57→21:31)
[2020-01-05] MEDS: sennosides 8.6mg tablet PO SCH ×2 (07:57→21:30)
[2020-01-05 08:00] VITALS: BP 116/68
[2020-01-05] MEDS: clozapine 25mg tablet PO SCH (13:30)
[2020-01-05] MEDS: clozapine 100mg tablet PO SCH ×2 (13:30→21:30)
[2020-01-05] MEDS: LORazepam 1 MG tablet PO PRN ×2 (13:32→21:32)
--- NOTE | 2020-01-05 14:16 | NUR ---
NURSING PROGRESS NOTE Legal hold: LPS Client on involuntary status for GD Report received from LUIS FERNANDO Miranda with use of SBAR Why are they here: Patient had been discharged previously with follow up at [facility] Team. Upon assessment by the [facility], it was determined patient was not able to obtain, food, fpc, or clothing and a 5150 for GD was written. Patient returned within hours of discharge. At time of return patient denied any symptoms related to his mental illness diagnosis of Schizophrenia. He continues to present with cognitive impairment which impedes his ability to care of himself, and requires multiple supports and external structures. Assessment What has happened this shift: Asleep at change of shift. Up for breakfast and medications then back to sleep. Up at lunch and interacting with peers and staff. Cooperative and cheerful. Just after lunch asked for Ativan because, "I feel like I'm getting a little ratsy (anxious)." Watches TV in afternoon and talks with staff. Does not appear to be RIS. No other changes. S/I, H/I: Pt denies A/VH: Denies. Sleep: napped ADL's: Independent. Group attendance: n/a. Were meds taken: Yes Any med S/E: None noted or reported. Mental Status Exam Appearance: Neat and clean Eye contact: Good Behavior: Calm, cooperative Speech: Clear Mood: Euthymic, mild anxiety Affect: smiling Thought process: Linear Thought Content: eating, snacks Cognition: Alert Insight: Poor Judgment: Poor to fair Interventions PRN's used: Ativan x1 Therapeutic interventions: 1:1 assessment, therapeutic conversation, active listening, maintained a safe and therapeutic environment, monitored behaviors and need for intervention, encouragement to perform personal hygiene, Q 15 min safety checks. Restraints/seclusion/emergency medication: N/A Justification of Continued Inpatient Treatment: Pt. continues to require a safe and supportive environment, and remains GD r/t mental health. He is LPS conserved and awaiting IMD placement.
[2020-01-05 20:02] VITALS: BP 132/84
[2020-01-05] MEDS: atorvastatin 10mg tablet PO SCH (21:30)
--- NOTE | 2020-01-06 00:21 | NUR ---
Nursing Progress Note Legal hold: LPS Client on involuntary status for GD Report received from KERMIT Fox with use of SBAR: Why are they here: Patient had been discharged previously with follow up at [facility] Team. Upon assessment by the [facility], it was determined patient was not able to obtain, food, longterm, or clothing and a 5150 for GD was written. Patient returned within hours of discharge. At time of return patient denied any symptoms related to his mental illness diagnosis of Schizophrenia. He continues to present with cognitive impairment which impedes his ability to care of himself, and requires multiple supports and external structures. Assessment What has happened this shift: Pt was in recreation room watching TV during shift change. Pt is still hopeful to be leaving in a month as discussed with Dr. Katz. He states that he feels like he could be ready to be out there and live a normal life. I con do everything, its pretty easy. Asked pt if he feels like he could keep medication compliance and he states he believes he can. He denies any hallucination I see everything the way its supposed to be, and laughs as he says this. Pt continues to paces the isles before going to sleep and appeared to be responding to internal stimuli, appears to be having a conversation with someone that isn't there. He denies any anxiety but seems to be getting somewhat agitated. Pt was given Ativan whit his HS medications. Pt eventually retires to bed and sleeps for most of the night. S/I, H/I: denies A/VH: Denies, does appear to be responding to internal stimuli. Sleep: currently sleeping, see sleep assessment for total hours ADL's: Independent. 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 Mental Status Exam Appearance: Appropriate, wearing personal clothing. Eye contact: Good Behavior: Cooperative, pacing the isles somewhat dismissive, aminated Speech: Normal rate and rhythm, clear Mood: Appears anxious, states "I'm doing good." Affect: Blunted Thought process: Circumstantial Thought Content: Food, medication, placement Cognition: A/O X 4 Insight: Poor Judgment: Poor to fair Interventions PRN's used: Ativan X1 Therapeutic interventions: 1:1 assessment, therapeutic conversation, active listening, maintained a safe and therapeutic environment, monitored behaviors and need for intervention, encouragement to perform personal hygiene, Q 15 min safety checks. Restraints/seclusion/emergency medication: N/A Justification of Continued Inpatient Treatment: Pt. continues to require a safe and supportive environment, and remains GD r/t mental health. He is LPS conserved and awaiting IMD placement.
[2020-01-06 07:17] VITALS: BP 114/62
[2020-01-06] MEDS: sennosides 8.6mg tablet PO SCH ×2 (07:59→20:17)
[2020-01-06] MEDS: propranolol 10mg tablet PO SCH ×3 (07:59→20:17)
[2020-01-06] MEDS: pantoprazole 40mg Tablet.DR PO SCH (07:59)
[2020-01-06] MEDS: benztropine 1mg tablet PO SCH ×2 (07:59→20:17)
[2020-01-06] MEDS: nicotine 7mg patch - 24hr TD SCH (08:00)
[2020-01-06] MEDS: atomoxetine 40 MG capsule PO SCH (08:01)
[2020-01-06] MEDS: naproxen 500mg tablet PO SCH ×2 (08:04→17:40)
[2020-01-06] MEDS: docusate sod 100mg capsule PO SCH ×2 (08:04→20:16)
[2020-01-06] MEDS: clozapine 100mg tablet PO SCH ×2 (14:03→20:16)
[2020-01-06] MEDS: clozapine 25mg tablet PO SCH (14:03)
--- NOTE | 2020-01-06 16:38 | NUR ---
NURSING PROGRESS NOTE Legal hold: LPS Client on involuntary status for GD Report received from LUIS FERNANDO Miranda with use of SBAR Why are they here: Patient had been discharged previously with follow up at [facility] Team. Upon assessment by the [facility], it was determined patient was not able to obtain, food, care home, or clothing and a 5150 for GD was written. Patient returned within hours of discharge. At time of return patient denied any symptoms related to his mental illness diagnosis of Schizophrenia. He continues to present with cognitive impairment which impedes his ability to care of himself, and requires multiple supports and external structures. Assessment What has happened this shift: Received pt. sleeping in bed at shift change. Pt. awakens for medications and breakfast, then goes back to bed. Patient reports that he is bored and there is not much else to do but to sleep. No signs of RIS. S/I, H/I: Pt denies A/VH: Denies. Sleep: napped ADL's: Independent. Group attendance: n/a. Were meds taken: Yes Any med S/E: None noted or reported. Mental Status Exam Appearance: Neat and clean wearing street clothes. Eye contact: Good Behavior: Calm, cooperative Speech: Clear Mood: Euthymic Affect: Bluinted. Thought process: Linear Thought Content: eating, snacks. Discharge destination. Cognition: Alert Insight: Poor Judgment: Poor to fair Interventions PRN's used: Therapeutic interventions: 1:1 assessment, therapeutic conversation, active listening, maintained a safe and therapeutic environment, monitored behaviors and need for intervention, encouragement to perform personal hygiene, Q 15 min safety checks. Restraints/seclusion/emergency medication: N/A Justification of Continued Inpatient Treatment: Pt. continues to require a safe and supportive environment, and remains GD r/t mental health. He is LPS conserved and awaiting IMD placement.
[2020-01-06 20:00] VITALS: BP 150/87
[2020-01-06] MEDS: atorvastatin 10mg tablet PO SCH (20:17)
[2020-01-06] MEDS: LORazepam 1 MG tablet PO PRN (21:33)
--- NOTE | 2020-01-07 02:25 | NUR ---
NURSING PROGRESS NOTE Legal hold: LPS Client on involuntary status for GD Report received from LUIS FERNANDO Fox with use of SBAR Why are they here: Patient had been discharged previously with follow up at [facility] Team. Upon assessment by the [facility], it was determined patient was not able to obtain, food, retirement, or clothing and a 5150 for GD was written. Patient returned within hours of discharge. At time of return patient denied any symptoms related to his mental illness diagnosis of Schizophrenia. He continues to present with cognitive impairment which impedes his ability to care of himself, and requires multiple supports and external structures. Assessment What has happened this shift: Patient up in rec room watching tv with peers. He is social with staff and peers pleasant and compliant with meds. Pt continues to respond to internal stimuli and talks to him self while walking in the jama. S/I, H/I: Pt denies A/VH: Denies. Sleep: napped ADL's: Independent. Group attendance: n/a. Were meds taken: Yes Any med S/E: None noted or reported. Mental Status Exam Appearance: Neat and clean wearing street clothes. Eye contact: Good Behavior: Calm, cooperative Speech: Clear Mood: Euthymic Affect: Blunted. Thought process: Linear Thought Content: eating, snacks. Discharge destination. Cognition: Alert Insight: Poor Judgment: Poor to fair Interventions PRN's used: Ativan Therapeutic interventions: 1:1 assessment, therapeutic conversation, active listening, maintained a safe and therapeutic environment, monitored behaviors and need for intervention, encouragement to perform personal hygiene, Q 15 min safety checks. Restraints/seclusion/emergency medication: N/A Justification of Continued Inpatient Treatment: Pt. continues to require a safe and supportive environment, and remains GD r/t mental health. He is LPS conserved and awaiting IMD
[2020-01-07 07:41] VITALS: BP 103/53
[2020-01-07] MEDS: pantoprazole 40mg Tablet.DR PO SCH (08:12)
[2020-01-07] MEDS: naproxen 500mg tablet PO SCH ×2 (08:12→17:33)
[2020-01-07] MEDS: benztropine 1mg tablet PO SCH ×2 (08:12→20:25)
[2020-01-07] MEDS: propranolol 10mg tablet PO SCH ×3 (08:12→20:27)
[2020-01-07] MEDS: sennosides 8.6mg tablet PO SCH ×2 (08:12→20:26)
[2020-01-07] MEDS: atomoxetine 40 MG capsule PO SCH (08:12)
[2020-01-07] MEDS: docusate sod 100mg capsule PO SCH ×2 (08:12→20:25)
[2020-01-07] MEDS: nicotine 7mg patch - 24hr TD SCH (08:13)
[2020-01-07] MEDS: clozapine 25mg tablet PO SCH (13:05)
[2020-01-07] MEDS: clozapine 100mg tablet PO SCH ×2 (13:05→20:28)
--- NOTE | 2020-01-07 17:26 | NUR ---
NURSING PROGRESS NOTE Legal hold: LPS Client on involuntary status for GD Report received from LUIS FERNANDO Miranda with use of SBAR Why are they here: Patient had been discharged previously with follow up at [facility] Team. Upon assessment by the [facility] [place] it was determined patient was not able to obtain, food, residential, or clothing and a 5150 for GD was written. Patient returned within hours of discharge. At time of return patient denied any symptoms related to his mental illness diagnosis of Schizophrenia. He continues to present with cognitive impairment which impedes his ability to care of himself, and requires multiple supports and external structures. Assessment What has happened this shift: Patient remains subdued during the daytime, and starts waking up towards the end of the shift. Patient was happy about ice cream sundays today. Gets animated about meals and snacks, otherwise has been resting. S/I, H/I: Pt denies A/VH: Denies. Sleep: napped ADL's: Independent. Group attendance: n/a. Were meds taken: Yes Any med S/E: None noted or reported. Mental Status Exam Appearance: Neat and clean wearing street clothes. Eye contact: Good Behavior: Calm, cooperative Speech: Clear Mood: Euthymic Affect: Blunted. Thought process: Linear Thought Content: eating, snacks. Discharge destination. Cognition: Alert Insight: Poor Judgment: Poor to fair Interventions PRN's used: Therapeutic interventions: 1:1 assessment, therapeutic conversation, active listening, maintained a safe and therapeutic environment, monitored behaviors and need for intervention, encouragement to perform personal hygiene, Q 15 min safety checks. Restraints/seclusion/emergency medication: N/A Justification of Continued Inpatient Treatment: Pt. continues to require a safe and supportive environment, and remains GD r/t mental health. He is LPS conserved and awaiting IMD placement.
[2020-01-07 20:07] VITALS: BP 122/80
[2020-01-07] MEDS: atorvastatin 10mg tablet PO SCH (20:26)
[2020-01-07] MEDS: LORazepam 1 MG tablet PO PRN (23:07)
--- NOTE | 2020-01-08 02:52 | NUR ---
NURSING PROGRESS NOTE Legal hold: LPS Client on involuntary status for GD Report received from LUIS FERNANDO Fox with use of SBAR Why are they here: Patient had been discharged previously with follow up at [facility] Team. Upon assessment by the [facility] [place], it was determined patient was not able to obtain, food, fpc, or clothing and a 5150 for GD was written. Patient returned within hours of discharge. At time of return patient denied any symptoms related to his mental illness diagnosis of Schizophrenia. He continues to present with cognitive impairment which impedes his ability to care of himself, and requires multiple supports and external structures. Assessment What has happened this shift: Patient awake at start of shift keeping to him self sitting in community room watching tv for most of the shift. When he got up he was social with his peers and laughed and joke with staff. Pt stated the he wishes he could go some where but likes it here also. S/I, H/I: Pt denies A/VH: Denies. Sleep: napped ADL's: Independent. Group attendance: n/a. Were meds taken: Yes Any med S/E: None noted or reported. Mental Status Exam Appearance: Neat and clean wearing street clothes. Eye contact: Good Behavior: Calm, cooperative Speech: Clear Mood: Euthymic Affect: Blunted. Thought process: Linear Thought Content: eating, snacks. Discharge destination. Cognition: Alert Insight: Poor Judgment: Poor to fair Interventions PRN's used: Ativan Therapeutic interventions: 1:1 assessment, therapeutic conversation, active listening, maintained a safe and therapeutic environment, monitored behaviors and need for intervention, encouragement to perform personal hygiene, Q 15 min safety checks. Restraints/seclusion/emergency medication: N/A Justification of Continued Inpatient Treatment: Pt. continues to require a safe and supportive environment, and remains GD r/t mental health. He is LPS conserved and awaiting IMD placement.
[2020-01-08] MEDS: docusate sod 100mg capsule PO SCH ×2 (08:15→20:23)
[2020-01-08] MEDS: atomoxetine 40 MG capsule PO SCH (08:15)
[2020-01-08] MEDS: nicotine 7mg patch - 24hr TD SCH (08:15)
[2020-01-08] MEDS: benztropine 1mg tablet PO SCH ×2 (08:15→20:24)
[2020-01-08] MEDS: sennosides 8.6mg tablet PO SCH ×2 (08:15→20:23)
[2020-01-08] MEDS: naproxen 500mg tablet PO SCH ×2 (08:15→18:04)
[2020-01-08] MEDS: propranolol 10mg tablet PO SCH ×3 (08:15→20:24)
[2020-01-08] MEDS: pantoprazole 40mg Tablet.DR PO SCH (08:15)
[2020-01-08 08:38] VITALS: BP 145/78
[2020-01-08] MEDS: clozapine 25mg tablet PO SCH (13:21)
[2020-01-08] MEDS: clozapine 100mg tablet PO SCH ×2 (13:21→20:23)
[2020-01-08] MEDS: NICOTINE POLACRILEX 2 MG LOZENGE BC PRN (15:40)
--- NOTE | 2020-01-08 18:15 | NUR ---
NURSING PROGRESS NOTE Legal hold: LPS Client on involuntary status for GD Report received from LUIS FERNANDO Coley with use of SBAR Why are they here: Patient had been discharged previously with follow up at [facility] Team. Upon assessment by the [facility], it was determined patient was not able to obtain, food, detention, or clothing and a 5150 for GD was written. Patient returned within hours of discharge. At time of return patient denied any symptoms related to his mental illness diagnosis of Schizophrenia. He continues to present with cognitive impairment which impedes his ability to care of himself, and requires multiple supports and external structures. Assessment What has happened this shift: Pt asleep at start of shift. Pt awoke for breakfast and then napped for a while. Pt denies depression, suicidal thoughts and hallucinations. Pt more visible on the unit today and was more interactive with staff and peers. Pt has bright affect. Pt napped briefly after lunch. S/I, H/I: Pt denies A/VH: Denies. Sleep: 5 noc sleep ADL's: Independent. Group attendance: n/a. Were meds taken: Yes Any med S/E: None noted or reported. Mental Status Exam Appearance: Neat and clean wearing street clothes. Eye contact: Good Behavior: Calm, cooperative Speech: Clear Mood: Euthymic Affect: Blunted. Thought process: Linear Thought Content: eating, snacks. Discharge destination. Cognition: Alert Insight: Poor Judgment: Poor to fair Interventions PRN's used: Therapeutic interventions: 1:1 assessment, therapeutic conversation, active listening, maintained a safe and therapeutic environment, monitored behaviors and need for intervention, encouragement to perform personal hygiene, Q 15 min safety checks. Restraints/seclusion/emergency medication: N/A Justification of Continued Inpatient Treatment: Pt. continues to require a safe and supportive environment, and remains GD r/t mental health. He is LPS conserved and awaiting IMD placement.
[2020-01-08 20:00] VITALS: BP 115/74
[2020-01-08] MEDS: atorvastatin 10mg tablet PO SCH (20:23)
[2020-01-08] MEDS: LORazepam 1 MG tablet PO PRN (22:01)
--- NOTE | 2020-01-09 01:12 | NUR ---
NURSING PROGRESS NOTE Legal hold: LPS Client on involuntary status for GD Report received from LUIS FERNANDO Fox with use of SBAR Why are they here: Patient had been discharged previously with follow up at [facility] Team. Upon assessment by the [facility], it was determined patient was not able to obtain, food, care home, or clothing and a 5150 for GD was written. Patient returned within hours of discharge. At time of return patient denied any symptoms related to his mental illness diagnosis of Schizophrenia. He continues to present with cognitive impairment which impedes his ability to care of himself, and requires multiple supports and external structures. Assessment What has happened this shift: Patient was up in dayroom watching tv with peers. He was more social this shift and talking about his upcoming birthday. He is still responding to internal stimuli at times. S/I, H/I: Pt denies A/VH: Denies. Sleep: 5 noc sleep ADL's: Independent. Group attendance: n/a. Were meds taken: Yes Any med S/E: None noted or reported. Mental Status Exam Appearance: Neat and clean wearing street clothes. Eye contact: Good Behavior: Calm, cooperative Speech: Clear Mood: Euthymic Affect: Blunted. Thought process: Linear Thought Content: eating, snacks. Discharge destination. Cognition: Alert Insight: Poor Judgment: Poor to fair Interventions PRN's used: Ativan Therapeutic interventions: 1:1 assessment, therapeutic conversation, active listening, maintained a safe and therapeutic environment, monitored behaviors and need for intervention, encouragement to perform personal hygiene, Q 15 min safety checks. Restraints/seclusion/emergency medication: N/A Justification of Continued Inpatient Treatment: Pt. continues to require a safe and supportive environment, and remains GD r/t mental health. He is LPS conserved and awaiting IMD placement.
[2020-01-09] MEDS: docusate sod 100mg capsule PO SCH ×2 (07:57→20:25)
[2020-01-09] MEDS: propranolol 10mg tablet PO SCH ×3 (07:57→21:00)
[2020-01-09] MEDS: sennosides 8.6mg tablet PO SCH ×2 (07:57→20:25)
[2020-01-09] MEDS: pantoprazole 40mg Tablet.DR PO SCH (07:57)
[2020-01-09] MEDS: benztropine 1mg tablet PO SCH ×2 (07:57→20:25)
[2020-01-09] MEDS: naproxen 500mg tablet PO SCH ×2 (07:57→17:51)
[2020-01-09] MEDS: nicotine 7mg patch - 24hr TD SCH (07:57)
[2020-01-09] MEDS: atomoxetine 40 MG capsule PO SCH (07:58)
[2020-01-09 08:00] VITALS: BP 121/80
--- NOTE | 2020-01-09 12:43 | NUR ---
Reassessment: Pt PO 100% meals meeting needs. LBM 01/08. No nutrition problem. Patient's weight has increased since admission in August by 28.5 kg. Noted current diet order for double eggs with breakfast, double meat with lunch and dinner, extra fruit and vegetables, salads with lunch and dinner. Will continue to monitor. Rec: 1. continue heart healthy diet 2. Double eggs q breakfast, double meat BIDLD; extra fruits/vegetables on meal trays; salad BIDLD all per diet order 3. routine bowel care 4. wt per rx Addendum: 01/09/20 at [address] Amended: Links added.
[2020-01-09] MEDS: clozapine 25mg tablet PO SCH (13:20)
[2020-01-09] MEDS: clozapine 100mg tablet PO SCH ×2 (13:21→20:27)
--- NOTE | 2020-01-09 16:14 | NUR ---
NURSING PROGRESS NOTE Legal hold: LPS Client on involuntary status for GD Report received from LUIS FERNANDO Guerrero with use of SBAR Why are they here: Patient had been discharged previously with follow up at [facility] Team. upon assessment by the [facility] [place], it was determined patient was not able to obtain, food, group home, or clothing and a 5150 for GD was written. Patient returned within hours of discharge. At time of return patient denied any symptoms related to his mental illness diagnosis of Schizophrenia. He continues to present with cognitive impairment which impedes his ability to care of himself, and requires multiple supports and external structures. Assessment What has happened this shift: Pt asleep at start of shift. Pt awoke for breakfast then came out to visit with staff and peers. Today is pts birthday. He spent the day celebrating w/pizza, gifts, music, movies and cake and ice cream. S/I, H/I: Denies A/VH: Denies. Sleep: Naps on and of during the day ADL's: Independent. Group attendance: N/A Were meds taken: Yes Any med S/E: None noted or reported. Mental Status Exam Appearance: He wears his own clothes Eye contact: Good Behavior: Calm, cooperative Speech: Clear Mood: Euthymic Affect: Blunted. Thought process: Linear Thought Content: Discharge and where he might go Cognition: Alert Insight: Poor Judgment: Poor to fair Interventions PRN's used: Therapeutic interventions: Provided morning assessment; provided therapeutic communication and active listening; medication administration/education/monitorin;g; encouragement to perform personal hygiene, Q 15 min safety checks. Restraints/seclusion/emergency medication: N/A Justification of Continued Inpatient Treatment: Pt. continues to require a safe and supportive environment, and remains GD r/t mental health. He is LPS conserved and awaiting IMD placement.
[2020-01-09 20:00] VITALS: BP 94/61
[2020-01-09] MEDS: atorvastatin 10mg tablet PO SCH (20:26)
[2020-01-09] MEDS: LORazepam 1 MG tablet PO PRN (21:31)
--- NOTE | 2020-01-10 00:56 | NUR ---
NURSING PROGRESS NOTE Legal hold: LPS Client on involuntary status for GD Report received from LUIS FERNANDO Guerrero with use of SBAR Why are they here: Patient had been discharged previously with follow up at [facility] Team. upon assessment by the [facility] [place], it was determined patient was not able to obtain, food, jail, or clothing and a 5150 for GD was written. Patient returned within hours of discharge. At time of return patient denied any symptoms related to his mental illness diagnosis of Schizophrenia. He continues to present with cognitive impairment which impedes his ability to care of himself, and requires multiple supports and external structures. Assessment What has happened this shift: Patient was in rec room watching tv with some peers at the start of the shift. The mood of the unit changed after a new admit came on the unit and was very manic. Tamaramartazra and most of the other Pt went to there rooms. S/I, H/I: Denies A/VH: Denies. Sleep: Naps on and of during the day ADL's: Independent. Group attendance: N/A Were meds taken: Yes Any med S/E: None noted or reported. Mental Status Exam Appearance: He wears his own clothes Eye contact: Good Behavior: Calm, cooperative Speech: Clear Mood: Euthymic Affect: Blunted. Thought process: Linear Thought Content: Discharge and where he might go Cognition: Alert Insight: Poor Judgment: Poor to fair Interventions PRN's used: Ativan Therapeutic interventions: Provided morning assessment; provided therapeutic communication and active listening; medication administration/education/monitorin;g; encouragement to perform personal hygiene, Q 15 min safety checks. Restraints/seclusion/emergency medication: N/A Justification of Continued Inpatient Treatment: Pt. continues to require a safe and supportive environment, and remains GD r/t mental health. He is LPS conserved and awaiting IMD placement.
[2020-01-10 07:30] VITALS: BP 128/69
[2020-01-10] MEDS: docusate sod 100mg capsule PO SCH ×2 (07:46→20:45)
[2020-01-10] MEDS: naproxen 500mg tablet PO SCH ×2 (07:46→17:40)
[2020-01-10] MEDS: benztropine 1mg tablet PO SCH ×2 (07:46→20:45)
[2020-01-10] MEDS: atomoxetine 40 MG capsule PO SCH (07:46)
[2020-01-10] MEDS: nicotine 7mg patch - 24hr TD SCH (07:46)
[2020-01-10] MEDS: sennosides 8.6mg tablet PO SCH ×2 (07:46→20:45)
[2020-01-10] MEDS: pantoprazole 40mg Tablet.DR PO SCH (07:46)
[2020-01-10] MEDS: propranolol 10mg tablet PO SCH ×3 (07:46→20:46)
[2020-01-10] MEDS: clozapine 25mg tablet PO SCH (13:50)
[2020-01-10] MEDS: clozapine 100mg tablet PO SCH ×2 (13:50→20:45)
--- NOTE | 2020-01-10 14:11 | NUR ---
NURSING PROGRESS NOTE Legal hold: LPS Client on involuntary status for GD Report received from LUIS FERNANDO Guerrero with use of SBAR Why are they here: Patient had been discharged previously with follow up [place] [facility]. [place] [facility] [place] determined patient was not able to obtain, food, residential, or clothing and a 5150 for GD was written. Patient returned within hours of discharge. At time of return patient denied any symptoms related to his mental illness diagnosis of Schizophrenia. He continues to present with cognitive impairment which impedes his ability to care of himself, and requires multiple supports and external structures. Assessment What has happened this shift: Pt slept most of the shift. He is compliant w/all treatments. He was observed once today sitting in a chair in the hallway smiling and looking around him. S/I, H/I: Denies A/VH: Denies. Sleep: Naps on and of during the day ADL's: Independent. Group attendance: N/A Were meds taken: Yes Any med S/E: None noted or reported. Mental Status Exam Appearance: Dressed in his Nike shoes, sweats and hat w/a new riojas t-shirt on Eye contact: Good Behavior: Calm, cooperative Speech: Clear Mood: "Good" Affect: Euthymic, congruent Thought process: Linear Thought Content: Discharge and where he might go Cognition: A/Ox4 Insight: Poor Judgment: Poor to fair Interventions PRN's used: Therapeutic interventions: Provided morning assessment; provided therapeutic communication and active listening; medication administration/education/monitorin;g; encouragement to perform personal hygiene, Q 15 min safety checks. Restraints/seclusion/emergency medication: N/A Justification of Continued Inpatient Treatment: Pt. continues to require a safe and supportive environment, and remains GD r/t mental health. He is LPS conserved and awaiting IMD placement.
--- NOTE | 2020-01-10 15:59 | NUR ---
PLACEMENT [facility] is #6 on wait list at [facility]. Packet is also at [facility], [facility], and [facility]. He has been accepted at [facility] and they are expected to open March 06. MATTHIEU Strange
[2020-01-10 20:00] VITALS: BP 127/71
[2020-01-10] MEDS: atorvastatin 10mg tablet PO SCH (20:50)
[2020-01-10] MEDS: LORazepam 1 MG tablet PO PRN (22:05)
--- NOTE | 2020-01-11 02:45 | NUR ---
NURSING PROGRESS NOTE Legal hold: LPS Client on involuntary status for GD Report received from LUIS FERNANDO Nielson with use of SBAR Why are they here: Patient had been discharged previously with follow up [place] [facility]. [place] [facility] [place] was not able to obtain, food, assisted, or clothing and a 5150 for GD was written. Patient returned within hours of discharge. At time of return patient denied any symptoms related to his mental illness diagnosis of Schizophrenia. He continues to present with cognitive impairment which impedes his ability to care of himself, and requires multiple supports and external structures. Assessment What has happened this shift: Received patient in the Recreational room watching TV and eating. Patient appears neat and wearing clean green scrubs. Patient siting with another patient and was conversing and laughing. Patient is in a good mood, smiles a lot and states that he is happy here. When asked what makes him happy, he states I learned how to cope with things, such as breathing when Im stressed. Patient speech is clear, eye contact is appropriate. Patient understands that he is waiting for placement and hes number #6 on the list. He is compliant with medication. Requested snacks at 1999. Requested for Ativan for anxiety, patient stated he felt relief from the medication. IS/I, H/I: Pt denies A/VH: Denies. Sleep: See sleep assessment ADL's: Independent. Group attendance: n/a. Were meds taken: Yes Any med S/E: None noted or reported. Mental Status Exam Appearance: Neat and clean wearing street clothes. Eye contact: Good Behavior: Calm, cooperative Speech: Clear Mood: Calm, happy Affect: Normal, Congruent to mood Thought process: Linear Thought Content: eating, snacks. Discharge destination. Cognition: Alert Insight: Poor Judgment: Poor to fair Interventions PRN's used: Ativan Therapeutic interventions: 1:1 assessment, therapeutic conversation, active listening, maintained a safe and therapeutic environment, monitored behaviors and need for intervention, encouragement to perform personal hygiene, Q 15 min safety checks. Restraints/seclusion/emergency medication: N/A Justification of Continued Inpatient Treatment: Pt. continues to require a safe and supportive environment, and remains GD r/t mental health. He is LPS conserved and awaiting IMD placement.
[2020-01-11 07:00] VITALS: BP 109/52
[2020-01-11] MEDS: nicotine 7mg patch - 24hr TD SCH (08:14)
[2020-01-11] MEDS: benztropine 1mg tablet PO SCH ×2 (08:14→21:23)
[2020-01-11] MEDS: atomoxetine 40 MG capsule PO SCH (08:14)
[2020-01-11] MEDS: pantoprazole 40mg Tablet.DR PO SCH (08:14)
[2020-01-11] MEDS: docusate sod 100mg capsule PO SCH ×2 (08:14→21:23)
[2020-01-11] MEDS: propranolol 10mg tablet PO SCH ×3 (08:14→21:23)
[2020-01-11] MEDS: sennosides 8.6mg tablet PO SCH ×2 (08:15→21:23)
[2020-01-11] MEDS: naproxen 500mg tablet PO SCH ×2 (08:17→17:45)
[2020-01-11] MEDS: clozapine 100mg tablet PO SCH ×2 (13:25→21:24)
[2020-01-11] MEDS: clozapine 25mg tablet PO SCH (13:25)
--- NOTE | 2020-01-11 17:07 | NUR ---
NURSING PROGRESS NOTE Legal hold: LPS Client on involuntary status for GD Report received from LUIS FERNANDO Guerrero with use of SBAR Why are they here: Patient had been discharged previously with follow up at [facility] Team. upon assessment by the [facility] [place], it was determined patient was not able to obtain, food, prison, or clothing and a 5150 for GD was written. Patient returned within hours of discharge. At time of return patient denied any symptoms related to his mental illness diagnosis of Schizophrenia. He continues to present with cognitive impairment which impedes his ability to care of himself, and requires multiple supports and external structures. Assessment What has happened this shift: Patient awakens for breakfast and medications. Slept until lunchtime. Pt. becomes animated around food and snacks. He appears happy and smiling at peers and staff. Stating he is still 6th on the waiting list for placement. S/I, H/I: Denies A/VH: Denies. Sleep: 9 hrs. NOC, napped in a.m. ADL's: Independent. Group attendance: N/A Were meds taken: Yes Any med S/E: None noted or reported. Mental Status Exam Appearance: Freshly showered in street clothes. Eye contact: Good Behavior: Calm, cooperative Speech: Clear Mood: Happy. Affect: Appropriate to mood. Thought process: Linear Thought Content: Discharge and where he might go Cognition: A/Ox4 Insight: Poor Judgment: Poor to fair Interventions PRN's used: Therapeutic interventions: Provided morning assessment; provided therapeutic communication and active listening; medication administration/education/monitorin;g; encouragement to perform personal hygiene, Q 15 min safety checks. Restraints/seclusion/emergency medication: N/A Justification of Continued Inpatient Treatment: Pt. continues to require a safe and supportive environment, and remains GD r/t mental health. He is LPS conserved and awaiting IMD placement.
[2020-01-11] MEDS: acetaminophen 325mg tablet PO PRN (19:06)
[2020-01-11] MEDS: NICOTINE POLACRILEX 2 MG LOZENGE BC PRN (19:11)
[2020-01-11 19:57] VITALS: BP 118/85
[2020-01-11] MEDS: atorvastatin 10mg tablet PO SCH (21:23)
[2020-01-11] MEDS: LORazepam 1 MG tablet PO PRN (22:05)
[2020-01-12] MEDS ORDERED: LORazepam 1 MG tablet PO ONE (00:25)
--- NOTE | 2020-01-12 01:49 | NUR ---
NURSING PROGRESS NOTE Legal hold: LPS Client on involuntary status for GD Report received from LUIS FERNANDO Martinez with use of SBAR Why are they here: Patient had been discharged previously with follow up at [facility] Team. upon assessment by the [facility], it was determined patient was not able to obtain, food, care home, or clothing and a 5150 for GD was written. Patient returned within hours of discharge. At time of return patient denied any symptoms related to his mental illness diagnosis of Schizophrenia. He continues to present with cognitive impairment which impedes his ability to care of himself, and requires multiple supports and external structures. 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 Patient presents as his smiley, friendly self. Patient later was observed sitting in Rec Room watching T.V. Patient requests a Nicotine lozenge upon meeting. Patient is compliant with care and medications. Patient walks the halls with another peer after receiving HS medications the retired to bed. Patient wakes up aroun 0030 and comes out of his room reporting he had a nightmare and is unable to fall back to sleep. Received a one time dose of Ativan 1mg which was effective. S/I, H/I: Patient denies. A/VH: Patient denies. Sleep: Patient initially falls asleep without incident. Patient wakes up and is administered 1mg Ativan which was effective. See Sleep Assessment for total hours. ADL's: Independent. 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 Were meds taken: Yes, with incident. Any med S/E: None observed or reported. Mental Status Exam Appearance: Clean, neat, messy hair, wear personal clothing. Eye contact: Good Behavior: Calm, cooperative, friendly. Speech: Clear, normal rate/rhythm. Mood: Happy. Affect: Appropriate to mood. Thought process: Linear Thought Content: Food oriented. Cognition: A/Ox4 Insight: Poor Judgment: Poor to fair Interventions PRN's used: Ativan x2 Therapeutic interventions: 1:1 assessment, provided therapeutic communication and active listening; medication administration/education/monitoring, encouragement to perform personal hygiene, Q 15 min safety checks. Restraints/seclusion/emergency medication: N/A Justification of Continued Inpatient Treatment: Patient gravely disabled r/t his mental illness. Patient LPS conserved. Patient continues to requires medication monitoring in a safe and supportive environment. Patient is awaiting placement.
[2020-01-12 08:00] VITALS: BP 108/60
[2020-01-12] MEDS: naproxen 500mg tablet PO SCH ×2 (08:20→17:32)
[2020-01-12] MEDS: atomoxetine 40 MG capsule PO SCH (08:20)
[2020-01-12] MEDS: sennosides 8.6mg tablet PO SCH ×2 (08:20→21:02)
[2020-01-12] MEDS: docusate sod 100mg capsule PO SCH ×2 (08:20→21:01)
[2020-01-12] MEDS: pantoprazole 40mg Tablet.DR PO SCH (08:20)
[2020-01-12] MEDS: benztropine 1mg tablet PO SCH ×2 (08:20→21:02)
[2020-01-12] MEDS: nicotine 7mg patch - 24hr TD SCH (08:21)
[2020-01-12] MEDS: propranolol 10mg tablet PO SCH ×3 (08:21→21:02)
[2020-01-12] MEDS: clozapine 100mg tablet PO SCH ×2 (15:04→21:02)
[2020-01-12] MEDS: clozapine 25mg tablet PO SCH (15:04)
--- NOTE | 2020-01-12 15:32 | NUR ---
Nursing Progress Note Legal hold: LPS Client on involuntary status for GD Report received from RN with use of SBAR Why are they here: Patient had been discharged previously with follow up at [facility] Access Team. Upon assessment by the [facility], it was determined patient was not able to obtain, food, skilled nursing, or clothing and a 5150 for GD was written. Patient returned within hours of discharge. At time of return patient denied any symptoms related to his mental illness diagnosis of Schizophrenia. He continues to present with cognitive impairment which impedes his ability to care of himself, and requires multiple supports and external structures. Assessment What has happened this shift: Received Pt in bed sleeping w/o distress at beginning of shift. He awoke for vitals and was pleasant/cooperative and sleepy. Pt tired this morning, stating he was up last night and did not sleep well. He took AM meds w/o issue and ate breakfast and all meals in his room. He continues to look forward to future place where hell be living and is happy to possibly be accepted at a few different places. Pt watched a movie in afternoon after going out to [employer] for sun and fresh air. Pt has been on [facility] for months and appears bored, but handling the uncertainty of where he will be going well. He remains polite and will engage in short conversations. S/I, H/I: Pt denies A/VH: Denies. Sleep: Napped in AM ADL's: Independent Group attendance: No groups today Were meds taken: Yes Any med S/E: None noted or reported. Mental Status Exam Appearance: Clean and neat in personal attire. Eye contact: Good Behavior: Calm, cooperative Speech: Clear, audible, minimal Mood: Euthymic Affect: congruent with mood Thought process: Linear Thought Content: Entertainment Cognition: A/O X 4 Insight: Poor Judgment: Poor Interventions PRN's used: None. Therapeutic interventions: 1:1 assessment, therapeutic conversation, active listening, maintained a safe and therapeutic environment, monitored behaviors and need for intervention, encouragement to perform personal hygiene, Q 15 min safety checks. Restraints/seclusion/emergency medication: N/A Justification of Continued Inpatient Treatment: Pt. continues to require a safe and supportive environment, and remains GD r/t mental health. He is LPS conserved and awaiting IMD placement.
[2020-01-12] MEDS: NICOTINE POLACRILEX 2 MG LOZENGE BC PRN (19:25)
[2020-01-12 20:00] VITALS: BP 141/86
[2020-01-12] MEDS: atorvastatin 10mg tablet PO SCH (21:02)
[2020-01-12] MEDS: LORazepam 1 MG tablet PO PRN (22:28)
--- NOTE | 2020-01-13 03:54 | NUR ---
NURSING PROGRESS NOTE Legal hold: LPS Client on involuntary status for GD Report received from LUIS FERNANDO Martinez with use of SBAR Why are they here: Patient had been discharged previously with follow up at [facility] Team. upon assessment by the [facility], it was determined patient was not able to obtain, food, correction, or clothing and a 5150 for GD was written. Patient returned within hours of discharge. At time of return patient denied any symptoms related to his mental illness diagnosis of Schizophrenia. He continues to present with cognitive impairment which impedes his ability to care of himself, and requires multiple supports and external structures. Assessment What has happened this shift: Patient is sitting in rec room at shift change, watching music videos and socializing appropriately. Patient presents with a big smile and asks "Where is the candy." Patient requests a Nicotine lozenge. Patient is compliant with care and HS medications. Patient is encouraged to ambulate the unit, patient was also encouraged to use the stationary bike, patient smiles and says "maybe later." Patient requests Ativan around 2230 then retires to bed. Patient is sleeping as of this writing, respirations even and unlabored. S/I, H/I: Patient denies. A/VH: Patient denies. Sleep: Patient requests PRN Ativan prior to bedtime, falls asleep without incident. See Sleep Assessment for total hours. ADL's: Independent. 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 Were meds taken: Yes, without issue. Any med S/E: None observed or reported. Mental Status Exam Appearance: Clean, neat, wearing personal clothing. Eye contact: Good Behavior: Calm, cooperative, friendly. Speech: Clear, normal rate/rhythm. Mood: Happy. Affect: Appropriate to mood. Thought process: Linear Thought Content: Immediate needs. Cognition: A/Ox4 Insight: Poor Judgment: Poor to fair Interventions PRN's used: Ativan, Nicotine lozenge. Therapeutic interventions: 1:1 assessment, provided therapeutic communication and active listening; medication administration/education/monitoring, encouragement to perform personal hygiene, Q 15 min safety checks. Restraints/seclusion/emergency medication: N/A Justification of Continued Inpatient Treatment: Patient gravely disabled r/t his mental illness. Patient LPS conserved. Patient continues to requires medication monitoring in a safe and supportive environment. Patient is awaiting placement.
[2020-01-13 07:44] LABS: BASOPHILS % (AUTO) 0.6 % (0-1); EOSINOPHILS # (AUTO) 0.2 X10'3 (0-0.9); EOSINOPHILS % (AUTO) 2.3 % (0-6); HEMATOCRIT 43.3 % (42.0-52.0); HEMOGLOBIN 14.6 g/dl (14.0-17.9); LYMPHOCYTES # (AUTO) 2.3 X10'3 (1.1-4.8); LYMPHOCYTES % (AUTO) 31.8 % (21-51); MEAN CORPUSCULAR HEMOGLOBIN 28.1 PG (27.0-31.0); MEAN CORPUSCULAR HGB CONC 33.8 g/dL (33.0-36.5); MEAN CORPUSCULAR VOLUME 83.3 FL (78-98); MEAN PLATELET VOLUME 8.3 FL (7.4-10.4); MONOCYTES # (AUTO) 0.7 X10'3 (0-0.9); MONOCYTES % (AUTO) 9.4 % (2-12); NEUTROPHILS # (AUTO) 4.1 X10'3 (1.8-7.7); NEUTROPHILS % (AUTO) 55.9 % (42-75); PLATELET COUNT 180 X10'3 (140-440); RED CELL DISTRIBUTION WIDTH 14.6 % (11.5-14.5); WHITE BLOOD COUNT 7.3 X10'3 (4.5-11.0)
[2020-01-13] MEDS: nicotine 7mg patch - 24hr TD SCH (07:51)
[2020-01-13] MEDS: atomoxetine 40 MG capsule PO SCH (07:51)
[2020-01-13] MEDS: sennosides 8.6mg tablet PO SCH ×2 (07:51→20:40)
[2020-01-13] MEDS: pantoprazole 40mg Tablet.DR PO SCH (07:52)
[2020-01-13] MEDS: docusate sod 100mg capsule PO SCH ×2 (07:52→20:40)
[2020-01-13] MEDS: naproxen 500mg tablet PO SCH ×2 (07:52→17:17)
[2020-01-13] MEDS: benztropine 1mg tablet PO SCH ×2 (07:52→20:40)
[2020-01-13] MEDS: propranolol 10mg tablet PO SCH ×3 (07:53→20:39)
[2020-01-13 08:00] VITALS: BP 101/46
[2020-01-13] MEDS: acetaminophen 325mg tablet PO PRN (12:30)
[2020-01-13 12:32] VITALS: BP 138/85
[2020-01-13] MEDS: clozapine 100mg tablet PO SCH ×2 (14:08→20:40)
[2020-01-13] MEDS: clozapine 25mg tablet PO SCH (14:09)
[2020-01-13] MEDS: NICOTINE POLACRILEX 2 MG LOZENGE BC PRN (14:12)
--- NOTE | 2020-01-13 17:29 | NUR ---
NURSING PROGRESS NOTE Legal hold: LPS Client on involuntary status for GD Report received from LUIS FERNANDO Arnold with use of SBAR Why are they here: Patient had been discharged previously with follow up at [facility] Team. upon assessment by the [facility] it was determined patient was not able to obtain, food, fci, or clothing and a 5150 for GD was written. Patient returned within hours of discharge. At time of return patient denied any symptoms related to his mental illness diagnosis of Schizophrenia. He continues to present with cognitive impairment which impedes his ability to care of himself, and requires multiple supports and external structures. Assessment What has happened this shift: Pt sleeping at beginning of shift. Ate breakfast and took morning medications then took a nap after breakfast. He requested Tylenol for THOMAS with mild relief. When scheduled Naproxen given he stated he hoped that would take the Thomas away. He denies any other symptoms. He socialized with other residents and was pleasant and cooperative. S/I, H/I: Denies A/VH: Denies. Sleep: 6.75h per assessment ADL's: Independent. Group attendance: No groups at this time. Were meds taken: Yes Any med S/E: None Mental Status Exam Appearance: Wearing his own clothes Eye contact: Good Behavior: Pleasant cooperative Speech: WNL Mood: Good Affect: Congruent to mood Thought process: Thought Content: Cognition: A/Ox4 Insight: Poor Judgment: Poor to fair Interventions PRN's used: Tylenol for THOMAS, Nicotine lozenge Therapeutic interventions: 1:1 assessment, provided therapeutic communication and active listening; medication administration/education/monitoring, encouragement to perform personal hygiene, Q 15 min safety checks. Restraints/seclusion/emergency medication: N/A Justification of Continued Inpatient Treatment: Patient gravely disabled r/t his mental illness. Patient LPS conserved. Patient continues to requires medication monitoring in a safe and supportive environment. Patient is awaiting placement.
[2020-01-13 19:55] VITALS: BP 127/82
[2020-01-13] MEDS: atorvastatin 10mg tablet PO SCH (20:39)
[2020-01-13] MEDS: LORazepam 1 MG tablet PO PRN (22:28)
--- NOTE | 2020-01-14 03:39 | NUR ---
NURSING PROGRESS NOTE Legal hold: LPS Client on involuntary status for GD Report received from LUIS FERNANDO Martinez with use of SBAR Why are they here: Patient had been discharged previously with follow up at [facility] Team. upon assessment by the [facility], it was determined patient was not able to obtain, food, care home, or clothing and a 5150 for GD was written. Patient returned within hours of discharge. At time of return patient denied any symptoms related to his mental illness diagnosis of Schizophrenia. He continues to present with cognitive impairment which impedes his ability to care of himself, and requires multiple supports and external structures. Assessment What has happened this shift: Patient sitting on his bed at shift change going through his laundry. Patient presents with a big smile. Patient is calm and cooperative. Patient is compliant with care and medication. Patient declined Nicotine patch to be removed states I like to keep it on it gives me cool dreams, I can fly in my dreams. Patient paces jama and socializes with peers. Patient request Ativan around 2230 then retires to bed. Patients WBC 7.3 on 01/13/20. S/I, H/I: Patient denies. A/VH: Patient denies. Sleep: Patient requests PRN Ativan prior to bedtime, falls asleep without incident. See Sleep Assessment for total hours. ADL's: Independent. 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 Were meds taken: Yes, without issue. Any med S/E: None observed or reported. Mental Status Exam Appearance: Clean, neat, wearing personal clothing. Eye contact: Good Behavior: Calm, cooperative, friendly. Speech: Clear, normal rate/rhythm. Mood: Happy. Affect: Appropriate to mood. Thought process: Linear Thought Content: Immediate needs. Cognition: A/Ox4 Insight: Poor Judgment: Poor to fair Interventions PRN's used: Ativan Therapeutic interventions: 1:1 assessment, provided therapeutic communication and active listening; medication administration/education/monitoring, encouragement to perform personal hygiene, Q 15 min safety checks. Restraints/seclusion/emergency medication: N/A Justification of Continued Inpatient Treatment: Patient gravely disabled r/t his mental illness. Patient LPS conserved. Patient continues to requires medication monitoring in a safe and supportive environment. Patient is awaiting placement.
[2020-01-14 07:37] LABS: BASOPHILS # (AUTO) 0.1 X10'3 (0-0.2); BASOPHILS % (AUTO) 0.7 % (0-1); EOSINOPHILS # (AUTO) 0.2 X10'3 (0-0.9); EOSINOPHILS % (AUTO) 2.2 % (0-6); HEMATOCRIT 43.8 % (42.0-52.0); HEMOGLOBIN 14.6 g/dl (14.0-17.9); LYMPHOCYTES # (AUTO) 2.3 X10'3 (1.1-4.8); MEAN CORPUSCULAR HEMOGLOBIN 27.6 PG (27.0-31.0); MEAN CORPUSCULAR HGB CONC 33.3 g/dL (33.0-36.5); MEAN CORPUSCULAR VOLUME 83.1 FL (78-98); MEAN PLATELET VOLUME 8.2 FL (7.4-10.4); MONOCYTES # (AUTO) 0.7 X10'3 (0-0.9); MONOCYTES % (AUTO) 9.2 % (2-12); NEUTROPHILS % (AUTO) 55.9 % (42-75); PLATELET COUNT 183 X10'3 (140-440); RED BLOOD COUNT 5.27 X10'6 (4.70-6.10); RED CELL DISTRIBUTION WIDTH 14.6 % (11.5-14.5); WHITE BLOOD COUNT 7.2 X10'3 (4.5-11.0)
[2020-01-14 08:20] VITALS: BP 121/64
[2020-01-14] MEDS: benztropine 1mg tablet PO SCH ×2 (08:37→20:37)
[2020-01-14] MEDS: propranolol 10mg tablet PO SCH ×3 (08:37→20:37)
[2020-01-14] MEDS: atomoxetine 40 MG capsule PO SCH (08:37)
[2020-01-14] MEDS: pantoprazole 40mg Tablet.DR PO SCH (08:37)
[2020-01-14] MEDS: docusate sod 100mg capsule PO SCH ×2 (08:37→20:37)
[2020-01-14] MEDS: sennosides 8.6mg tablet PO SCH ×2 (08:37→20:38)
[2020-01-14] MEDS: nicotine 7mg patch - 24hr TD SCH (08:40)
[2020-01-14] MEDS: naproxen 500mg tablet PO SCH ×2 (08:41→17:29)
[2020-01-14] MEDS: clozapine 100mg tablet PO SCH ×2 (13:37→20:37)
[2020-01-14] MEDS: clozapine 25mg tablet PO SCH (13:38)
--- NOTE | 2020-01-14 17:45 | NUR ---
NURSING PROGRESS NOTE Legal hold: LPS Client on involuntary status for GD Report received from LUIS FERNANDO Arnold with use of SBAR Why are they here: Patient had been discharged previously with follow up at [facility] Team. upon assessment by the [facility], it was determined patient was not able to obtain, food, mcfp, or clothing and a 5150 for GD was written. Patient returned within hours of discharge. At time of return patient denied any symptoms related to his mental illness diagnosis of Schizophrenia. He continues to present with cognitive impairment which impedes his ability to care of himself, and requires multiple supports and external structures. Assessment What has happened this shift: Pt. asleep most of AM, pt. awoke for medications and breakfast and went back to sleep. Pt. reports he is good today. Pt. denies SI/HI, A/V hallucinations. Pt. gives 1 word answers during interview. Pt. focused on discharge. Pt. asks if he can buy the unit [employer] today. RN requested pt. to do 45 minutes of stationary bike. Pt. did about 10 minutes c/o being tired. Pt. seen socializing with peers, smiling. S/I, H/I: Denies A/VH: Denies. Sleep: Slept most of AM. ADL's: Independent. Group attendance: No groups at this time. Were meds taken: Yes Any med S/E: None Mental Status Exam Appearance: Showered, well-groomed, wearing street clothes. Eye contact: Good Behavior: Pleasant cooperative Speech: WNL Mood: Good Affect: Congruent to mood Thought process: linear Thought Content: focused on discharge Cognition: A/Ox4 Insight: Poor Judgment: Poor to fair Interventions PRN's used: None Therapeutic interventions: 1:1 assessment, provided therapeutic communication and active listening; medication administration/education/monitoring, encouragement to perform personal hygiene, Q 15 min safety checks. Restraints/seclusion/emergency medication: N/A Justification of Continued Inpatient Treatment: Patient gravely disabled r/t his mental illness. Patient LPS conserved. Patient continues to requires medication monitoring in a safe and supportive environment. Patient is awaiting placement.
[2020-01-14 20:00] VITALS: BP 121/71
[2020-01-14] MEDS: atorvastatin 10mg tablet PO SCH (20:37)
[2020-01-14] MEDS: LORazepam 1 MG tablet PO PRN (22:08)
--- NOTE | 2020-01-14 23:36 | NUR ---
NURSING PROGRESS NOTE Legal hold: LPS Client on involuntary status for GD Report received from LUIS FERNANDO Martinez with use of SBAR Why are they here: Patient had been discharged previously with follow up at [facility] Team. upon assessment by the [facility], it was determined patient was not able to obtain, food, retirement, or clothing and a 5150 for GD was written. Patient returned within hours of discharge. At time of return patient denied any symptoms related to his mental illness diagnosis of Schizophrenia. He continues to present with cognitive impairment which impedes his ability to care of himself, and requires multiple supports and external structures. Assessment What has happened this shift: Pt. up watching tv in rec room with peers. Pt is happy and social with peers and staff. He ate snack and was med compliant. He stated that he was proud of him self for buying pizza for his peers on day shift. S/I, H/I: Denies A/VH: Denies. Sleep: Slept most of AM. ADL's: Independent. Group attendance: No groups at this time. Were meds taken: Yes Any med S/E: None Mental Status Exam Appearance: Showered, well-groomed, wearing street clothes. Eye contact: Good Behavior: Pleasant cooperative Speech: WNL Mood: Good Affect: Congruent to mood Thought process: linear Thought Content: focused on discharge Cognition: A/Ox4 Insight: Poor Judgment: Poor to fair Interventions PRN's used: Ativan Therapeutic interventions: 1:1 assessment, provided therapeutic communication and active listening; medication administration/education/monitoring, encouragement to perform personal hygiene, Q 15 min safety checks. Restraints/seclusion/emergency medication: N/A Justification of Continued Inpatient Treatment: Patient gravely disabled r/t his mental illness. Patient LPS conserved. Patient continues to requires medication monitoring in a safe and supportive environment. Patient is awaiting placement.
[2020-01-15 08:00] VITALS: BP 82/46
[2020-01-15] MEDS: propranolol 10mg tablet PO SCH ×4 (08:00→20:28)
[2020-01-15] MEDS: nicotine 7mg patch - 24hr TD SCH (08:22)
[2020-01-15] MEDS: atomoxetine 40 MG capsule PO SCH (08:23)
[2020-01-15] MEDS: pantoprazole 40mg Tablet.DR PO SCH (08:23)
[2020-01-15] MEDS: docusate sod 100mg capsule PO SCH ×2 (08:23→20:28)
[2020-01-15] MEDS: sennosides 8.6mg tablet PO SCH ×2 (08:23→20:28)
[2020-01-15] MEDS: naproxen 500mg tablet PO SCH ×2 (08:23→17:21)
[2020-01-15] MEDS: benztropine 1mg tablet PO SCH ×2 (08:23→20:28)
[2020-01-15 08:45] VITALS: BP 132/62
--- NOTE | 2020-01-15 10:39 | NUR ---
Reassessment: Pt PO 100% meals meeting needs. Last BM 01/13. Patient's weight has increased since admission in August by 28.5 kg. Noted current diet order for double eggs with breakfast, double meat with lunch and dinner, extra fruit and vegetables, salads with lunch and dinner. Will continue to monitor. Rec: 1. continue heart healthy diet 2. Double eggs q breakfast, double meat BIDLD; extra fruits/vegetables on meal trays; salad BIDLD all per diet order 3. routine bowel care 4. wt per rx Addendum: 01/15/20 at [address] Amended: Links added.
[2020-01-15] MEDS: clozapine 25mg tablet PO SCH (14:22)
[2020-01-15] MEDS: clozapine 100mg tablet PO SCH ×2 (14:22→20:27)
--- NOTE | 2020-01-15 14:53 | NUR ---
NURSING PROGRESS NOTE Legal hold: LPS Client on involuntary status for GD Report received from LUIS FERNANDO Coley with use of SBAR Why are they here: Patient had been discharged previously with follow up at [facility] Team. upon assessment by the [facility], it was determined patient was not able to obtain, food, jail, or clothing and a 5150 for GD was written. Patient returned within hours of discharge. At time of return patient denied any symptoms related to his mental illness diagnosis of schizophrenia. He continues to present with cognitive impairment which impedes his ability to care of himself, and requires multiple supports and external structures. Assessment What has happened this shift: Pt sleeping at the change of shift. Pt cooperative with assessment. Denies depression, anxiety, and SI. Pt up in the group room during the day watching TV. He smiles and readily answers questions. S/I, H/I: Denies A/VH: Denies. Sleep: Napped during the AM ADL's: Independent. Group attendance: No groups at this time. Were meds taken: Yes Any med S/E: None reported or observed Mental Status Exam Appearance: Neat and clean. Eye contact: Direct Behavior: Cooperative Speech: Normal rate and rhythm Mood: Euthymic Affect: Congruent to mood Thought process: linear Thought Content: Did not share many of his thoughts Cognition: A/Ox4 Insight: Poor Judgment: Poor to fair Interventions PRN's used: None Therapeutic interventions: 1:1 assessment, provided therapeutic communication and active listening; medication administration/education/monitoring, encouragement to perform personal hygiene, Q 15 min safety checks. Restraints/seclusion/emergency medication: N/A Justification of Continued Inpatient Treatment: Patient gravely disabled r/t his mental illness. Patient LPS conserved. Patient continues to requires medication monitoring in a safe and supportive environment. Patient is awaiting placement.
[2020-01-15] MEDS: NICOTINE POLACRILEX 2 MG LOZENGE BC PRN (17:16)
[2020-01-15 20:19] VITALS: BP 112/74
[2020-01-15] MEDS: atorvastatin 10mg tablet PO SCH (20:28)
[2020-01-15] MEDS: LORazepam 1 MG tablet PO PRN (22:05)
--- NOTE | 2020-01-15 23:24 | NUR ---
NURSING PROGRESS NOTE Legal hold: LPS Client on involuntary status for GD Report received from LUIS FERNANDO Martinez with use of SBAR Why are they here: Patient had been discharged previously with follow up at [facility] Team. [place] [facility] was determined patient was not able to obtain, food, halfway, or clothing and a 5150 for GD was written. Patient returned within hours of discharge. At time of return patient denied any symptoms related to his mental illness diagnosis of schizophrenia. He continues to present with cognitive impairment which impedes his ability to care of himself, and requires multiple supports and external structures. Assessment What has happened this shift: Pt was up and social watching tv with peers. Happy and cooperative. Pt would get up and walk the halls at times he would respond to internal stimuli. Then return to the rec room. S/I, H/I: Denies A/VH: Denies. Sleep: Napped during the AM ADL's: Independent. Group attendance: No groups at this time. Were meds taken: Yes Any med S/E: None reported or observed Mental Status Exam Appearance: Neat and clean. Eye contact: Direct Behavior: Cooperative Speech: Normal rate and rhythm Mood: Euthymic Affect: Congruent to mood Thought process: linear Thought Content: Did not share many of his thoughts Cognition: A/Ox4 Insight: Poor Judgment: Poor to fair Interventions PRN's used: Ativan Therapeutic interventions: 1:1 assessment, provided therapeutic communication and active listening; medication administration/education/monitoring, encouragement to perform personal hygiene, Q 15 min safety checks. Restraints/seclusion/emergency medication: N/A Justification of Continued Inpatient Treatment: Patient gravely disabled r/t his mental illness. Patient LPS conserved. Patient continues to requires medication monitoring in a safe and supportive environment. Patient is awaiting placement.
[2020-01-16 08:00] VITALS: BP 135/72
[2020-01-16] MEDS: benztropine 1mg tablet PO SCH ×2 (08:28→20:43)
[2020-01-16] MEDS: pantoprazole 40mg Tablet.DR PO SCH (08:28)
[2020-01-16] MEDS: atomoxetine 40 MG capsule PO SCH (08:29)
[2020-01-16] MEDS: propranolol 10mg tablet PO SCH ×3 (08:29→20:43)
[2020-01-16] MEDS: nicotine 7mg patch - 24hr TD SCH (08:29)
[2020-01-16] MEDS: docusate sod 100mg capsule PO SCH ×2 (08:29→20:43)
[2020-01-16] MEDS: naproxen 500mg tablet PO SCH ×2 (08:29→17:36)
[2020-01-16] MEDS: sennosides 8.6mg tablet PO SCH ×2 (08:33→20:43)
[2020-01-16] MEDS: NICOTINE POLACRILEX 2 MG LOZENGE BC PRN ×2 (12:25→20:50)
--- NOTE | 2020-01-16 12:45 | NUR ---
Nursing Progress Note: Legal hold: LPS Client on involuntary status for GD Report received from nurse with use of SBAR: LUIS FERNANDO Guerrero Why are they here: Patient had been discharged previously with follow up at [facility] Team. Upon assessment by the [facility], it was determined patient was not able to obtain, food, custodial, or clothing and a 5150 for GD was written. Patient returned within hours of discharge. At time of return patient denied any symptoms related to his mental illness diagnosis of Schizophrenia. He continues to present with cognitive impairment which impedes his ability to care of himself, and requires multiple supports and external structures. Assessment What has happened this shift: Received pt. laying in bed sleeping at the beginning of the shift, awoke to administer AM medication. Pt. presents as cooperative and pleasant, and 1:1 completed at bedside. Pt. continues to deny any mental health s/s and no delusional statements made. This machine sign writer questioned pt. regarding discharge plans, he smiled animatedly and stated, "I'm still on the waiting list." No c/o pain or any s/s of anxiety exhibited this shift, pt. does request PRN Nicotine Lozenge, administered with effectiveness. Pt. remains up throughout the shift, watching TV and interacting intermittently with others. S/I, H/I: Denies A/VH: Pt. denies, no s/s of response to internal stimuli Sleep: Pt. reports he slept well, sleep hours are 6.25 ADL's: Continues to require some prompting and direction from staff at times Group attendance: N/A Were meds taken: Yes Any med S/E: None Mental Status Exam Appearance: Presents as neat, and appropriately dressed. Eye contact: Good Behavior: Cooperative and pleasant Speech: Soft and animated, child-like. Mood: Pleasant Affect: Animated Thought process: WNL Thought Content: Poverty of thought Cognition: A&O X4 Insight: Poor Judgment: Fair Interventions PRN's used: Nicotine Lozenge, Therapeutic interventions: Ensured contract for safety, maintained a safe and therapeutic environment, provided clear and simple instructions, monitored behaviors and need for intervention, provided active listening, encouraged independent performance of ADLs, and maintained Q 15 min safety checks. Restraints/seclusion/emergency medication: N/A Justification of Continued Inpatient Treatment: Pt. continues to require a safe and supportive environment, and remains GD r/t mental health. He is LPS conserved and awaiting IMD placement.
[2020-01-16 13:48] VITALS: BP 127/87
[2020-01-16] MEDS: clozapine 100mg tablet PO SCH ×2 (13:49→20:43)
[2020-01-16] MEDS: clozapine 25mg tablet PO SCH (13:49)
[2020-01-16 20:06] VITALS: BP 125/80
[2020-01-16] MEDS: atorvastatin 10mg tablet PO SCH (20:43)
--- NOTE | 2020-01-16 22:04 | NUR ---
Nursing Progress Note: Legal hold: LPS Client on involuntary status for GD Report received from nurse with use of SBAR: LUIS FERNANDO Martinez Why are they here: Patient had been discharged previously with follow up at [facility] Team. Upon assessment by the [facility], it was determined patient was not able to obtain, food, detention, or clothing and a 5150 for GD was written. Patient returned within hours of discharge. At time of return patient denied any symptoms related to his mental illness diagnosis of Schizophrenia. He continues to present with cognitive impairment which impedes his ability to care of himself, and requires multiple supports and external structures. Assessment What has happened this shift: Pt sitting in the rec room at change of shift watching tv. He spent the evening watching tv and socialized minimally with peers and staff, laughing and smiling. Reports anxiety and requested nicotine lozenge and then ativan prn at HS. Pt states he is just waiting for placement. S/I, H/I: Denies A/VH: denies Sleep: see sleep hours ADL's: Continues to require some prompting and direction from staff at times Group attendance: N/A Were meds taken: Yes Any med S/E: None Mental Status Exam Appearance: Presents as neat, and appropriately dressed. Eye contact: Good Behavior: Cooperative and pleasant Speech: Soft and animated Mood: Pleasant Affect: Animated Thought process: WNL Thought Content: Poverty of thought Cognition: A&O X4 Insight: Poor Judgment: Fair Interventions PRN's used: Nicotine Lozenge, ativan Therapeutic interventions: Ensured contract for safety, maintained a safe and therapeutic environment, provided clear and simple instructions, monitored behaviors and need for intervention, provided active listening, encouraged independent performance of ADLs, and maintained Q 15 min safety checks. Restraints/seclusion/emergency medication: N/A Justification of Continued Inpatient Treatment: Pt. continues to require a safe and supportive environment, and remains GD r/t mental health. He is LPS conserved and awaiting IMD placement.
[2020-01-17] MEDS: atomoxetine 40 MG capsule PO SCH (08:02)
[2020-01-17] MEDS: docusate sod 100mg capsule PO SCH ×2 (08:02→20:35)
[2020-01-17] MEDS: sennosides 8.6mg tablet PO SCH ×2 (08:02→20:34)
[2020-01-17] MEDS: nicotine 7mg patch - 24hr TD SCH (08:03)
[2020-01-17] MEDS: benztropine 1mg tablet PO SCH ×2 (08:03→20:34)
[2020-01-17] MEDS: propranolol 10mg tablet PO SCH ×3 (08:03→20:34)
[2020-01-17] MEDS: pantoprazole 40mg Tablet.DR PO SCH (08:03)
[2020-01-17] MEDS: naproxen 500mg tablet PO SCH ×2 (08:03→17:53)
[2020-01-17 08:12] VITALS: BP 118/70
[2020-01-17] MEDS: clozapine 100mg tablet PO SCH ×2 (13:08→20:34)
[2020-01-17] MEDS: clozapine 25mg tablet PO SCH (13:08)
--- NOTE | 2020-01-17 13:30 | NUR ---
Nursing Progress Note: Legal hold: LPS Client on involuntary status for GD Report received from RN with use of SBAR Why are they here: Patient had been discharged previously with follow up at [facility] Team. Upon assessment by the [facility], it was determined patient was not able to obtain, food, skilled nursing, or clothing and a 5150 for GD was written. Patient returned within hours of discharge. At time of return patient denied any symptoms related to his mental illness diagnosis of Schizophrenia. He continues to present with cognitive impairment which impedes his ability to care of himself, and requires multiple supports and external structures. Assessment What has happened this shift: Received Pt in bed sleeping w/o distress at beginning of shift. He awoke for vitals and was pleasant/cooperative and sleepy. He took AM meds w/o issue and ate breakfast and all meals in his room. He returned to bed for a long morning nap. He states he is first on a list to get into an IMD and is excited. Pt watched TV and video game scenes on youtube and interacted well with staff and peers. Pt bored at times but remains friendly and positive about future. He engages in short coherent conversations and smiled often today. Did not see Pt. responding to internal stimuli or talk with self today. S/I, H/I: Pt denies A/VH: Denies. Sleep: Napped in AM ADL's: Independent Group attendance: No groups today Were meds taken: Yes Any med S/E: None noted or reported. Mental Status Exam Appearance: Clean and neat in personal attire. Eye contact: Good Behavior: Calm, cooperative Speech: Clear, audible, minimal Mood: Euthymic Affect: congruent with mood Thought process: Linear Thought Content: Entertainment Cognition: A/O X 4 Insight: Poor Judgment: Poor Interventions PRN's used: None. Therapeutic interventions: 1:1 assessment, therapeutic conversation, active listening, maintained a safe and therapeutic environment, monitored behaviors and need for intervention, encouragement to perform personal hygiene, Q 15 min safety checks. Restraints/seclusion/emergency medication: N/A Justification of Continued Inpatient Treatment: Pt. continues to require a safe and supportive environment, and remains GD r/t mental health. He is LPS conserved and awaiting IMD placement.
[2020-01-17 20:05] VITALS: BP 123/79
[2020-01-17] MEDS: atorvastatin 10mg tablet PO SCH (20:34)
--- NOTE | 2020-01-17 22:01 | NUR ---
Nursing Progress Note: Legal hold: LPS Client on involuntary status for GD Report received from nurse with use of SBAR: LUIS FERNANDO Martinez Why are they here: Patient had been discharged previously with follow up at [facility] Team. Upon assessment by the [facility], it was determined patient was not able to obtain, food, skilled nursing, or clothing and a 5150 for GD was written. Patient returned within hours of discharge. At time of return patient denied any symptoms related to his mental illness diagnosis of Schizophrenia. He continues to present with cognitive impairment which impedes his ability to care of himself, and requires multiple supports and external structures. Assessment What has happened this shift: Pt was in the rec room at change of shift, spent evening watching a movie. Interacts well with other patients and is smiling with a pleasant demeanor. pt denies s/i, denies a/vh. Pt states he is just waiting to go. He reports anxiety 6/10 at bedtime and requests prn. S/I, H/I: Denies A/VH: denies Sleep: see sleep hours ADL's: Continues to require some prompting and direction from staff at times Group attendance: N/A Were meds taken: Yes Any med S/E: None Mental Status Exam Appearance: Presents as neat, and appropriately dressed. Eye contact: Good Behavior: Cooperative and pleasant Speech: Soft and animated Mood: Pleasant Affect: Animated Thought process: WNL Thought Content: Poverty of thought Cognition: A&O X4 Insight: Poor Judgment: Fair Interventions PRN's used: ativan Therapeutic interventions: Ensured contract for safety, maintained a safe and therapeutic environment, provided clear and simple instructions, monitored behaviors and need for intervention, provided active listening, encouraged independent performance of ADLs, and maintained Q 15 min safety checks. Restraints/seclusion/emergency medication: N/A Justification of Continued Inpatient Treatment: Pt. continues to require a safe and supportive environment, and remains GD r/t mental health. He is LPS conserved and awaiting IMD placement.
[2020-01-17] MEDS: LORazepam 1 MG tablet PO PRN (22:08)
[2020-01-18 07:52] VITALS: BP 108/63
[2020-01-18] MEDS: pantoprazole 40mg Tablet.DR PO SCH (07:57)
[2020-01-18] MEDS: propranolol 10mg tablet PO SCH ×3 (07:57→20:08)
[2020-01-18] MEDS: naproxen 500mg tablet PO SCH ×2 (07:58→17:35)
[2020-01-18] MEDS: benztropine 1mg tablet PO SCH ×2 (07:58→20:08)
[2020-01-18] MEDS: docusate sod 100mg capsule PO SCH ×2 (07:58→20:08)
[2020-01-18] MEDS: sennosides 8.6mg tablet PO SCH ×2 (07:58→20:08)
[2020-01-18] MEDS: nicotine 7mg patch - 24hr TD SCH (07:59)
[2020-01-18] MEDS: atomoxetine 40 MG capsule PO SCH (08:07)
[2020-01-18] MEDS: clozapine 25mg tablet PO SCH (14:06)
[2020-01-18] MEDS: clozapine 100mg tablet PO SCH ×2 (14:07→20:08)
[2020-01-18] MEDS: NICOTINE POLACRILEX 2 MG LOZENGE BC PRN (14:21)
--- NOTE | 2020-01-18 17:54 | NUR ---
Nursing Progress Note: Legal hold: LPS Client on involuntary status for GD Report received from Yolanda GOULD with use of SBAR Why are they here: Patient had been discharged previously with follow up at [facility] Team. Upon assessment by the [facility], it was determined patient was not able to obtain, food, snf, or clothing and a 5150 for GD was written. Patient returned within hours of discharge. At time of return patient denied any symptoms related to his mental illness diagnosis of Schizophrenia. He continues to present with cognitive impairment which impedes his ability to care of himself, and requires multiple supports and external structures. Assessment What has happened this shift: Pt. asleep at start of shift. Pt. took medications and ate all meals in his room. Pt. went back to bed after his breakfast and slept until 11AM. 1:1 done at bedside, pt. denies SI/HI, A/V hallucinations. Pt. reports he is doing well. Pt. encouraged to exercise. Pt. seen watching TV in rec room with other patients. S/I, H/I: Pt denies A/VH: Denies. Sleep: Napped in AM ADL's: Independent Group attendance: N/A Were meds taken: Yes Any med S/E: None noted or reported. Mental Status Exam Appearance: Clean and neat in personal attire. Eye contact: Good Behavior: Calm, cooperative Speech: Clear, audible, minimal Mood: Euthymic Affect: congruent with mood Thought process: Linear Thought Content: Entertainment & food Cognition: A/O X 4 Insight: Poor Judgment: Poor Interventions PRN's used: None Therapeutic interventions: 1:1 assessment, therapeutic conversation, active listening, maintained a safe and therapeutic environment, monitored behaviors and need for intervention, encouragement to perform personal hygiene, Q 15 min safety checks. Restraints/seclusion/emergency medication: N/A Justification of Continued Inpatient Treatment: Pt. continues to require a safe and supportive environment, and remains GD r/t mental health. He is LPS conserved and awaiting IMD placement.
[2020-01-18 19:00] VITALS: BP 130/80
[2020-01-18] MEDS: atorvastatin 10mg tablet PO SCH (20:08)
[2020-01-18] MEDS: LORazepam 1 MG tablet PO PRN (21:29)
--- NOTE | 2020-01-18 22:31 | NUR ---
Nursing Progress Note: Legal hold: LPS Client on involuntary status for GD Report received from Dominique GOULD with use of SBAR Why are they here: Patient had been discharged previously with follow up at [facility] Team. Upon assessment by the [facility], it was determined patient was not able to obtain, food, half-way, or clothing and a 5150 for GD was written. Patient returned within hours of discharge. At time of return patient denied any symptoms related to his mental illness diagnosis of Schizophrenia. He continues to present with cognitive impairment which impedes his ability to care of himself, and requires multiple supports and external structures. Assessment What has happened this shift: Pt sitting in his room at change of shift. He states other people are watching shows he didnt want to watch. Pt charged his ankle bracelet and spent some time sitting in the hallway talking with staff. Pt eventually made his way back into the rec room and watched tv before going to bed. He states he is just waiting to get placed, states he is bored. Denies depression. Pt requests ativan at bedtime saying he feels anxious S/I, H/I: Pt denies A/VH: Denies. Sleep: Napped in AM ADL's: Independent Group attendance: N/A Were meds taken: Yes Any med S/E: None noted or reported. Mental Status Exam Appearance: Clean and neat Eye contact: Good Behavior: Calm, cooperative Speech: Clear, audible, minimal Mood: Euthymic, anxious Affect: congruent with mood Thought process: Linear Thought Content: asking for snacks Cognition: A/O X 4 Insight: Poor Judgment: Poor Interventions PRN's used: None Therapeutic interventions: 1:1 assessment, therapeutic conversation, active listening, maintained a safe and therapeutic environment, monitored behaviors and need for intervention, encouragement to perform personal hygiene, Q 15 min safety checks. Restraints/seclusion/emergency medication: N/A Justification of Continued Inpatient Treatment: Pt. continues to require a safe and supportive environment, and remains GD r/t mental health. He is LPS conserved and awaiting IMD placement.
[2020-01-19] MEDS: sennosides 8.6mg tablet PO SCH ×2 (07:48→20:52)
[2020-01-19] MEDS: atomoxetine 40 MG capsule PO SCH (07:49)
[2020-01-19] MEDS: propranolol 10mg tablet PO SCH ×3 (07:49→20:51)
[2020-01-19] MEDS: benztropine 1mg tablet PO SCH ×2 (07:50→20:52)
[2020-01-19] MEDS: docusate sod 100mg capsule PO SCH ×2 (07:50→20:51)
[2020-01-19] MEDS: pantoprazole 40mg Tablet.DR PO SCH (07:50)
[2020-01-19] MEDS: naproxen 500mg tablet PO SCH ×2 (07:50→17:53)
[2020-01-19] MEDS: nicotine 7mg patch - 24hr TD SCH (07:52)
[2020-01-19 08:00] VITALS: BP 113/62
[2020-01-19] MEDS: NICOTINE POLACRILEX 2 MG LOZENGE BC PRN ×2 (10:48→20:57)
[2020-01-19] MEDS: clozapine 100mg tablet PO SCH ×2 (14:59→20:51)
[2020-01-19] MEDS: clozapine 25mg tablet PO SCH (14:59)
--- NOTE | 2020-01-19 17:41 | NUR ---
Nursing Progress Note: Legal hold: LPS Client on involuntary status for GD Report received from Parth GOULD with use of SBAR Why are they here: Patient had been discharged previously with follow up at [facility] Team. Upon assessment by the [facility], it was determined patient was not able to obtain, food, snf, or clothing and a 5150 for GD was written. Patient returned within hours of discharge. At time of return patient denied any symptoms related to his mental illness diagnosis of Schizophrenia. He continues to present with cognitive impairment which impedes his ability to care of himself, and requires multiple supports and external structures. Assessment What has happened this shift: Pt. asleep at start of shift. Pt. took medications and ate all meals in his room. Pt. went back to bed after his breakfast and slept until 10AM. 1:1 done at bedside, pt. denies SI/HI, A/V hallucinations. Pt. reports his mood is "OK... I'm just getting antsy to get to the new place". Pt. encouraged to exercise. Pt. seen watching TV in rec room by himself. Pt. reports he's still hungry after his meals. S/I, H/I: Denies A/VH: Denies. Sleep: Napped in AM ADL's: Independent Group attendance: N/A Were meds taken: Yes Any med S/E: None noted or reported. Mental Status Exam Appearance: Clean and neat in personal attire. Eye contact: Good Behavior: Calm, cooperative Speech: Clear, audible, minimal Mood: Euthymic Affect: congruent with mood Thought process: Linear Thought Content: Food Cognition: A/O X 4 Insight: Poor Judgment: Poor Interventions PRN's used: None Therapeutic interventions: 1:1 assessment, therapeutic conversation, active listening, maintained a safe and therapeutic environment, monitored behaviors and need for intervention, encouragement to perform personal hygiene, Q 15 min safety checks. Restraints/seclusion/emergency medication: N/A Justification of Continued Inpatient Treatment: Pt. continues to require a safe and supportive environment, and remains GD r/t mental health. He is LPS conserved and awaiting IMD placement.
[2020-01-19 19:38] VITALS: BP 109/55
[2020-01-19] MEDS ORDERED: naproxen sodium 220mg tablet PO SCH (20:10)
[2020-01-19] MEDS: atorvastatin 10mg tablet PO SCH (20:52)
[2020-01-19] MEDS: LORazepam 1 MG tablet PO PRN (22:36)
--- NOTE | 2020-01-19 23:40 | NUR ---
NURSING PROGRESS NOTE Legal hold: LPS Client on involuntary status for GD Report received from KERMIT Fox with use of SBAR Why are they here: Patient had been discharged previously with follow up at [facility] Team. upon assessment by the [facility], it was determined patient was not able to obtain, food, correction, or clothing and a 5150 for GD was written. Patient returned within hours of discharge. At time of return patient denied any symptoms related to his mental illness diagnosis of Schizophrenia. He continues to present with cognitive impairment which impedes his ability to care of himself, and requires multiple supports and external structures. Assessment What has happened this shift: Pt was in his room and appeared to be sleeping during shift change. Pt got up for snack and was in TV room for some times socializing well with other patients and watching TV. He appeared happy and to be in a good mood as he would joke smiled big. He denies any A/VH, anxiety or depression at this time and he was cooperative during 1:1 physical assessment and took all his meds without any issues. Pt also request nicotine lozenge. He states that he has not used the bicycle machine since the first time he used it but feels like he has been loosing weight. Encouraged pt to use it more often. Pt continues to pace the isles and appeared to be responding to internal stimuli as he was talking to himself. Pt requested Ativan before going to bed and he went to sleep after this. S/I, H/I: Patient denies. A/VH: Patient denies, did appeared to be responding to internal stimuli. Sleep: Currently sleeping, see sleep assessment for total hours. ADL's: Independent. Group attendance: relief mate no group. Were meds taken: Yes Any med S/E: None observed or reported. Mental Status Exam Appearance: Clean, neat, appropriate, wearing personal clothing. Eye contact: Good Behavior: Cooperative, social, engages in conversation. Speech: Clear, normal rate/rhythm. Mood: Euthymic Affect: Congruent with mood Thought process: Linear for the most part. Thought Content: Snack, his current weight, COVID19 Cognition: A/Ox4 Insight: Poor Judgment: Poor to fair Interventions PRN's used: Ativan, Nicotine lozenge. Therapeutic interventions: 1:1 assessment, provided therapeutic communication and active listening; medication administration/education/monitoring, encouragement to perform personal hygiene, Q 15 min safety checks. Restraints/seclusion/emergency medication: N/A Justification of Continued Inpatient Treatment: Patient gravely disabled r/t his mental illness. Patient LPS conserved. Patient continues to requires medication monitoring in a safe and supportive environment. Patient is awaiting placement.
[2020-01-20] MEDS: docusate sod 100mg capsule PO SCH ×2 (07:54→21:29)
[2020-01-20] MEDS: benztropine 1mg tablet PO SCH ×2 (07:54→21:29)
[2020-01-20] MEDS: naproxen 500mg tablet PO SCH ×2 (07:54→17:51)
[2020-01-20] MEDS: pantoprazole 40mg Tablet.DR PO SCH (07:54)
[2020-01-20] MEDS: atomoxetine 40 MG capsule PO SCH (07:54)
[2020-01-20] MEDS: nicotine 7mg patch - 24hr TD SCH (07:54)
[2020-01-20] MEDS: sennosides 8.6mg tablet PO SCH ×2 (07:54→21:29)
[2020-01-20] MEDS: propranolol 10mg tablet PO SCH ×3 (07:54→21:29)
[2020-01-20 08:00] VITALS: BP 103/60
--- NOTE | 2020-01-20 09:29 | NUR ---
Nursing Note: Pt report given and pt care transferred to LUIS FERNANDO Cary. Pt pleasant and cooperative. Compliant with assessment and medication administration. Pt denies depression, SI, and A/V H. No complaints at this time.
[2020-01-20] MEDS: clozapine 25mg tablet PO SCH (13:15)
[2020-01-20] MEDS: clozapine 100mg tablet PO SCH ×2 (13:16→21:29)
[2020-01-20] MEDS: NICOTINE POLACRILEX 2 MG LOZENGE BC PRN (13:18)
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
[2020-01-20 19:43] VITALS: BP 113/76
[2020-01-20] MEDS: atorvastatin 10mg tablet PO SCH (21:29)
[2020-01-20] MEDS: LORazepam 1 MG tablet PO PRN (22:27)
--- NOTE | 2020-01-20 23:43 | NUR ---
NURSING PROGRESS NOTE Legal hold: LPS Client on involuntary status for GD Report received from KERMIT Fox with use of SBAR Why are they here: Patient had been discharged previously with follow up at [facility] Team. upon assessment by the [facility], it was determined patient was not able to obtain, food, mcc, or clothing and a 5150 for GD was written. Patient returned within hours of discharge. At time of return patient denied any symptoms related to his mental illness diagnosis of Schizophrenia. He continues to present with cognitive impairment which impedes his ability to care of himself, and requires multiple supports and external structures. Assessment What has happened this shift: Pt was in TV room during shift change. He spent a good amount of time here. He socializes appropriately with other patients. Appears to be in a good mood as always. Pt was cooperative during 1:1 physical assessment and took all his meds without any issues. When asked if he was having any hallucinations, he states not right now but probably will later. He states that they appear when he is walking around. Pt also denies any anxiety or depression at this moment. When asked if he was going to go to sleep soon, he states that he wants to walk around a little longer. Pt eventually approached this freelance writer and asked for Ativan. This was given with good effect. S/I, H/I: Patient denies. A/VH: Patient denies Sleep: Currently sleeping, see sleep assessment for total hours. ADL's: Independent. Group attendance: signal technician no group. Were meds taken: Yes Any med S/E: None observed or reported. Mental Status Exam Appearance: Clean, neat, appropriate, wearing personal clothing. Eye contact: Good Behavior: Cooperative, social, engages in conversation, friendly. Speech: Clear, normal rate/rhythm. Mood: Happy Affect: Congruent with mood Thought process: Linear Thought Content: Snack, medication, ice cream Cognition: A/Ox4 Insight: Poor Judgment: Poor to fair Interventions PRN's used: Ativan Therapeutic interventions: 1:1 assessment, provided therapeutic communication and active listening; medication administration/education/monitoring, encouragement to perform personal hygiene, Q 15 min safety checks. Restraints/seclusion/emergency medication: N/A Justification of Continued Inpatient Treatment: Patient gravely disabled r/t his mental illness. Patient LPS conserved. Patient continues to requires medication monitoring in a safe and supportive environment. Patient is awaiting placement.
[2020-01-21 07:55] VITALS: BP 113/62
[2020-01-21] MEDS: sennosides 8.6mg tablet PO SCH ×2 (08:27→21:08)
[2020-01-21] MEDS: nicotine 7mg patch - 24hr TD SCH (08:27)
[2020-01-21] MEDS: pantoprazole 40mg Tablet.DR PO SCH (08:27)
[2020-01-21] MEDS: docusate sod 100mg capsule PO SCH ×2 (08:28→21:08)
[2020-01-21] MEDS: propranolol 10mg tablet PO SCH ×2 (08:28→13:38)
[2020-01-21] MEDS: atomoxetine 40 MG capsule PO SCH (08:28)
[2020-01-21] MEDS: benztropine 1mg tablet PO SCH ×2 (08:28→21:08)
[2020-01-21] MEDS: naproxen 500mg tablet PO SCH ×2 (08:29→18:10)
[2020-01-21 09:02] LABS: ALANINE AMINOTRANSFERASE 55 U/L (12-78); ALBUMIN 3.4 G/DL (3.4-5.0); ALBUMIN/GLOBULIN RATIO 1.1 (1.1-1.5); ALKALINE PHOSPHATASE 154 IU/L (46-116); ASPARTATE AMINO TRANSFERASE 26 U/L (10-37); BILIRUBIN,DIRECT 0.1 MG/DL (0-0.3); BILIRUBIN,TOTAL 0.4 MG/DL (0.1-1.0); TOTAL PROTEIN 6.4 G/DL (6.4-8.2)
[2020-01-21] MEDS: clozapine 25mg tablet PO SCH (13:37)
[2020-01-21] MEDS: clozapine 100mg tablet PO SCH ×2 (13:37→21:07)
--- NOTE | 2020-01-21 17:50 | NUR ---
Nursing Progress Note: Legal hold: 1370 Client on involuntary status for 1370 Report received from nurse with use of SBAR: Avril Garcia RN Why are they here: Pt. admitted directly from the [facility] accompanied by state troopers. Pt. has been in the skilled nursing since March 21, 2019 after a misdemeanor of one count of "Resist Obstruct Delay Officer," and "possibly trespassing" at one of his friends house. Pt was demonstrating psychotic/paranoid behavior, trying to barricade himself into his friends house and "speaking in unknown languages". Pt. arrested in 2013 for cruelty to animals. During his incarceration, pt.'s behavior described as "constantly provocative", pt. "throwing water on people and dumping water under the doors of other inmates; and continually yelling through his cell door and challenging both deputies and inmates to a fight". Pt. also had been refusing medical treatment. Pt. was considered a risk due to his aggression and refusal of treatment for his psychosis. According to Psychologist report, pt. is found incompetent to stand trial and requires antipsychotic medication in order to return him to competency and is a danger to himself and to others if unmedicated. Assessment What has happened this shift: Received pt sleeping in bed at shift change. Pt. eats all meals in his room, takes medications without incident. Patient up and social on the unit with peers, pacing hallways. Pt is in a good mood today and no agitation noted. Pt. reports anxiety in a.m. and requests Atarax and Ativan, then naps after breakfast. Patient is hopeful that he has served his time while inpatient on unit, and that he will be released after court. S/I, H/I: Denies A/VH: Denies Sleep: Napped ADL's: Independent Group attendance: NA Were meds taken: Yes Any med S/E: None Mental Status Exam Appearance: Pt. is neat and clean in personal attire. Eye contact: Good Behavior: Cooperative, anxious. Mood: Euthymic. Affect: Constricted Thought process: Circumstantial Thought Content: Discharge after court. Cognition: A&O X4 Insight: Fair Judgment: Fair Interventions PRN's used: Atarax and Ativan Therapeutic interventions: Maintained a safe and therapeutic environment, ensured contract for safety, provided clear and simple instructions, monitored behavior and need for intervention, provided active listening and positive encouragement, and maintained Q 15min safety checks. Restraints/seclusion/emergency medication: N/A Justification of Continued Inpatient Treatment: Pt. continues to be restored to competency so he can be returned to skilled nursing and stand trial. Per Dr. Treviño, staff to contact DA office to find out about discharge.
[2020-01-21 19:46] VITALS: BP 109/62
[2020-01-21] MEDS: atorvastatin 10mg tablet PO SCH (21:08)
[2020-01-22] MEDS: LORazepam 1 MG tablet PO PRN ×2 (00:30→23:00)
[2020-01-22] MEDS: NICOTINE POLACRILEX 2 MG LOZENGE BC PRN ×3 (00:32→18:25)
--- NOTE | 2020-01-22 03:46 | NUR ---
Nursing Progress Note: Legal hold: 1370 Client on involuntary status for 1370 Report received from nurse with use of SBAR: Avril Garcia RN Why are they here: Pt. admitted directly from the [facility] accompanied by state troopers. Pt. has been in the skilled nursing since March 21, 2019 after a misdemeanor of one count of "Resist Obstruct Delay Officer," and "possibly trespassing" at one of his friends house. Pt was demonstrating psychotic/paranoid behavior, trying to barricade himself into his friends house and "speaking in unknown languages". Pt. arrested in 2013 for cruelty to animals. During his incarceration, pt.'s behavior described as "constantly provocative", pt. "throwing water on people and dumping water under the doors of other inmates; and continually yelling through his cell door and challenging both deputies and inmates to a fight". Pt. also had been refusing medical treatment. Pt. was considered a risk due to his aggression and refusal of treatment for his psychosis. According to Psychologist report, pt. is found incompetent to stand trial and requires antipsychotic medication in order to return him to competency and is a danger to himself and to others if unmedicated. Assessment What has happened this shift: Pt up on unit at start of shift. Friendly pleasant with staff and other pts. Pt denies SI, HI or AH. Pt talking about discharge. Pt named all the people that have been discharged. S/I, H/I: Denies A/VH: Denies Sleep: asleep at this time ADL's: Independent Group attendance: NA Were meds taken: Yes Any med S/E: None Mental Status Exam Appearance: Pt. is neat and clean in personal attire. Eye contact: Good Behavior: Cooperative, anxious. Mood: Euthymic. Affect: Constricted Thought process: Circumstantial Thought Content: Discharge after court. Cognition: A&O X4 Insight: Fair Judgment: Fair Interventions PRN's used: Atarax and Ativan Therapeutic interventions: Maintained a safe and therapeutic environment, ensured contract for safety, provided clear and simple instructions, monitored behavior and need for intervention, provided active listening and positive encouragement, and maintained Q 15min safety checks. Restraints/seclusion/emergency medication: N/A Justification of Continued Inpatient Treatment: Pt. continues to be restored to competency so he can be returned to skilled nursing and stand trial. Per Dr. Treviño, staff to contact DA office to find out about discharge.
[2020-01-22] MEDS: naproxen 500mg tablet PO SCH ×2 (07:58→17:39)
[2020-01-22] MEDS: atomoxetine 40 MG capsule PO SCH (07:58)
[2020-01-22] MEDS: pantoprazole 40mg Tablet.DR PO SCH (07:58)
[2020-01-22] MEDS: docusate sod 100mg capsule PO SCH ×2 (07:58→21:02)
[2020-01-22] MEDS: sennosides 8.6mg tablet PO SCH ×2 (07:58→20:59)
[2020-01-22] MEDS: benztropine 1mg tablet PO SCH ×2 (07:58→20:59)
[2020-01-22] MEDS: nicotine 7mg patch - 24hr TD SCH (07:59)
[2020-01-22 08:00] VITALS: BP 113/66
--- NOTE | 2020-01-22 10:09 | NUR ---
Reassessment: Pt PO 100% avg meals w/ additional portions per MD order meeting needs. LBM 01/19. +29kg since admit likely r/t medications as well as additional portions per MD order. No nutrition concerns at this time. Will continue to monitor. Rec: 1. continue heart healthy diet 2. Double eggs q breakfast, double meat BIDLD; extra fruits/vegetables on meal trays; salad BIDLD all per diet order 3. routine bowel care 4. wt per rx Addendum: 01/22/20 at [address] Amended: Links added.
[2020-01-22] MEDS: clozapine 100mg tablet PO SCH ×2 (13:06→20:59)
[2020-01-22] MEDS: clozapine 25mg tablet PO SCH (13:06)
--- NOTE | 2020-01-22 17:16 | NUR ---
Nursing Progress Note: Legal hold: 1370 Client on involuntary status for 1370 Report received from nurse with use of SBAR: Ida, qc tech Why are they here: Pt. admitted directly from the [facility] accompanied by state troopers. Pt. 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 Pt was demonstrating psychotic/paranoid behavior, trying to barricade himself into his friends house and "speaking in unknown languages". Pt. arrested in 2013 for cruelty to animals. During his incarceration, pt.'s behavior described as "constantly provocative", pt. "throwing water on people and dumping water under the doors of other inmates; and continually yelling through his cell door and challenging both deputies and inmates to a fight". Pt. also had been refusing medical treatment. Pt. was considered a risk due to his aggression and refusal of treatment for his psychosis. According to Psychologist report, pt. is found incompetent to stand trial and requires antipsychotic medication in order to return him to competency and is a danger to himself and to others if unmedicated. Assessment What has happened this shift: Patient is resting in bed peacefully at change of shift. He is pleasant and cooperative with care and takes his medications as ordered. He utilized a nicotine lozenge PRN in the morning. He denies SI, HI, A/VH and does not appear to be internally preoccupied. He makes no delusional statements. He is social with staff and peers. He smiles often. He eats his meals in the group room. He ate breakfast and promptly went back to bed until approximately 1000. S/I, H/I: Denies A/VH: Denies Sleep: Napped ADL's: Independent Group attendance: NA Were meds taken: Yes Any med S/E: None Mental Status Exam Appearance: Pt. is disheveled in personal attire. Eye contact: Good Behavior: Cooperative, anxious. Mood: Euthymic. Affect: Constricted Thought process: Circumstantial Thought Content: food, "I am good, just bored". Cognition: A&O X4 Insight: Fair Judgment: Fair Interventions PRN's used: nicotine lozenge Therapeutic interventions: Maintained a safe and therapeutic environment, ensured contract for safety, provided clear and simple instructions, monitored behavior and need for intervention, provided active listening and positive encouragement, and maintained Q 15min safety checks. Restraints/seclusion/emergency medication: N/A Justification of Continued Inpatient Treatment: Pt. continues to be restored to competency so he can be returned to retirement and stand trial. Per Dr. Treviño, staff to contact DA office to find out about discharge.
[2020-01-22 19:06] VITALS: BP 152/90
[2020-01-22] MEDS: atorvastatin 10mg tablet PO SCH (20:59)
--- NOTE | 2020-01-22 23:16 | NUR ---
Nursing Progress Note: Legal hold: 1370 Client on involuntary status for 1370 Report received from nurse with use of SBAR: Ida, trauma director Why are they here: Pt. admitted directly from the [facility] accompanied by state troopers. Pt. has been in the half-way since March 21, 2019 after a misdemeanor of one count of "Resist Obstruct Delay Officer," and "possibly trespassing" at one of his friends house. Pt was demonstrating psychotic/paranoid behavior, trying to barricade himself into his friends house and "speaking in unknown languages". Pt. arrested in 2013 for cruelty to animals. During his incarceration, pt.'s behavior described as "constantly provocative", pt. "throwing water on people and dumping water under the doors of other inmates; and continually yelling through his cell door and challenging both deputies and inmates to a fight". Pt. also had been refusing medical treatment. Pt. was considered a risk due to his aggression and refusal of treatment for his psychosis. According to Psychologist report, pt. is found incompetent to stand trial and requires antipsychotic medication in order to return him to competency and is a danger to himself and to others if unmedicated. Assessment What has happened this shift: Patient up on unit socializing with other pts at start of shift. Pt smiles and laughs easily and is kind to other pts. He is pleasant and cooperative with care and takes his medications as ordered. He denies SI, HI, A/VH and does not appear to be internally preoccupied. He makes no delusional statements. He was given Ativan at HS per request and went to bed. S/I, H/I: Denies A/VH: Denies Sleep: Asleep at this time ADL's: Independent Group attendance: NA Were meds taken: Yes Any med S/E: None Mental Status Exam Appearance: Pt. dressed in street clothes Eye contact: Good Behavior: Cooperative, anxious. Mood: Euthymic. Affect: appropriate Thought process: Circumstantial Thought Content: food, "I am good, just bored". Cognition: A&O X4 Insight: Fair Judgment: Fair Interventions PRN's used: Ativan Therapeutic interventions: Maintained a safe and therapeutic environment, ensured contract for safety, provided clear and simple instructions, monitored behavior and need for intervention, provided active listening and positive encouragement, and maintained Q 15min safety checks. Restraints/seclusion/emergency medication: N/A Justification of Continued Inpatient Treatment: Pt. continues to be restored to competency so he can be returned to half-way and stand trial. Per Dr. Treviño, staff to contact DA office to find out about discharge.
[2020-01-23 08:00] VITALS: BP 109/52
[2020-01-23] MEDS: docusate sod 100mg capsule PO SCH ×2 (08:05→20:42)
[2020-01-23] MEDS: benztropine 1mg tablet PO SCH ×2 (08:05→20:42)
[2020-01-23] MEDS: pantoprazole 40mg Tablet.DR PO SCH (08:05)
[2020-01-23] MEDS: sennosides 8.6mg tablet PO SCH ×2 (08:06→20:42)
[2020-01-23] MEDS: naproxen 500mg tablet PO SCH ×2 (08:06→17:36)
[2020-01-23] MEDS: atomoxetine 40 MG capsule PO SCH (08:06)
[2020-01-23] MEDS: nicotine 7mg patch - 24hr TD SCH (08:07)
[2020-01-23] MEDS: clozapine 25mg tablet PO SCH (13:06)
[2020-01-23] MEDS: clozapine 100mg tablet PO SCH ×2 (13:06→20:43)
--- NOTE | 2020-01-23 13:59 | NUR ---
Nursing Progress Note: Legal hold: LPS Client on involuntary status for GD Report received from RN with use of SBAR Why are they here: Patient had been discharged previously with follow up at [facility] Team. Upon assessment by the [facility], it was determined patient was not able to obtain, food, assisted, or clothing and a 5150 for GD was written. Patient returned within hours of discharge. At time of return patient denied any symptoms related to his mental illness diagnosis of Schizophrenia. He continues to present with cognitive impairment which impedes his ability to care of himself, and requires multiple supports and external structures. Assessment What has happened this shift: Received Pt in bed sleeping w/o distress at beginning of shift. He awoke for vitals and was pleasant/cooperative and sleepy. Pt returned to sleep after taking AM meds w/o issue and ate breakfast. He returned to bed for a morning nap. Overall in euthymic mood. Watched TV and minimally interacted with staff and others. Did not see Pt talking with self or responding to internal stimuli. S/I, H/I: Pt Denies A/VH: Denies. Sleep: Napped in AM ADL's: Independent Group attendance: No groups today Were meds taken: Yes Any med S/E: None noted or reported. Mental Status Exam Appearance: Clean and neat in personal attire. Eye contact: Good Behavior: Calm, Cooperative Speech: Clear, audible, minimal Mood: Euthymic Affect: Congruent with mood Thought process: Linear Thought Content: Entertainment Cognition: A/O X 4 Insight: Poor Judgment: Poor Interventions PRN's used: None. Therapeutic interventions: 1:1 assessment, therapeutic conversation, active listening, maintained a safe and therapeutic environment, monitored behaviors and need for intervention, encouragement to perform personal hygiene, Q 15 min safety checks. Restraints/seclusion/emergency medication: N/A Justification of Continued Inpatient Treatment: Pt. continues to require a safe and supportive environment, and remains GD r/t mental health. He is LPS conserved and awaiting IMD placement.
[2020-01-23 20:43] VITALS: BP 146/91
[2020-01-23] MEDS: atorvastatin 10mg tablet PO SCH (20:43)
[2020-01-23] MEDS: LORazepam 1 MG tablet PO PRN (22:07)
--- NOTE | 2020-01-23 23:22 | NUR ---
Nursing Progress Note: Legal hold: LPS Client on involuntary status for GD Report received from RN with use of SBAR Why are they here: Patient had been discharged previously with follow up at [facility] Team. Upon assessment by the [facility], it was determined patient was not able to obtain, food, group home, or clothing and a 5150 for GD was written. Patient returned within hours of discharge. At time of return patient denied any symptoms related to his mental illness diagnosis of Schizophrenia. He continues to present with cognitive impairment which impedes his ability to care of himself, and requires multiple supports and external structures. Assessment What has happened this shift: Pt in rec room watching tv. social with staff and peers.Pt is happy and cooperative on the unit. He still responds to internal stimuli when pacing in the jama. S/I, H/I: Pt Denies A/VH: Denies. Sleep: Napped in AM ADL's: Independent Group attendance: No groups today Were meds taken: Yes Any med S/E: None noted or reported. Mental Status Exam Appearance: Clean and neat in personal attire. Eye contact: Good Behavior: Calm, Cooperative Speech: Clear, audible, minimal Mood: Euthymic Affect: Congruent with mood Thought process: Linear Thought Content: Entertainment Cognition: A/O X 4 Insight: Poor Judgment: Poor Interventions PRN's used: None. Therapeutic interventions: 1:1 assessment, therapeutic conversation, active listening, maintained a safe and therapeutic environment, monitored behaviors and need for intervention, encouragement to perform personal hygiene, Q 15 min safety checks. Restraints/seclusion/emergency medication: N/A Justification of Continued Inpatient Treatment: Pt. continues to require a safe and supportive environment, and remains GD r/t mental health. He is LPS conserved and awaiting IMD placement.
[2020-01-24] MEDS: sennosides 8.6mg tablet PO SCH ×2 (07:55→20:22)
[2020-01-24] MEDS: pantoprazole 40mg Tablet.DR PO SCH (07:55)
[2020-01-24] MEDS: benztropine 1mg tablet PO SCH ×2 (07:55→20:22)
[2020-01-24] MEDS: docusate sod 100mg capsule PO SCH ×2 (07:55→20:22)
[2020-01-24] MEDS: naproxen 500mg tablet PO SCH ×2 (07:55→17:36)
[2020-01-24] MEDS: atomoxetine 40 MG capsule PO SCH (07:55)
[2020-01-24] MEDS: nicotine 7mg patch - 24hr TD SCH (07:58)
[2020-01-24 08:00] VITALS: BP 100/55
[2020-01-24] MEDS: clozapine 25mg tablet PO SCH (13:01)
[2020-01-24] MEDS: clozapine 100mg tablet PO SCH ×2 (13:01→20:22)
--- NOTE | 2020-01-24 13:50 | NUR ---
Nursing Progress Note: Legal hold: LPS conserved Client on involuntary status for GD Report received from Yolanda GOULD with use of SBAR Why are they here: Patient had been discharged previously with follow up at [facility] Team. Upon assessment by the [facility], it was determined patient was not able to obtain, food, mcc, or clothing and a 5150 for GD was written. Patient returned within hours of discharge. At time of return patient denied any symptoms related to his mental illness diagnosis of Schizophrenia. He continues to present with cognitive impairment which impedes his ability to care of himself, and requires multiple supports and external structures. Assessment What has happened this shift: Pt appeared fatigued until lunch time. Pt did get up for breakfast to eat in the dining room but returned immediately to his room to go back to sleep. Attempted to get pt to go to group at 1000, pt woke up momentarily then went right back to sleep. Pt remained up out of bed after lunch. He states that he plans to use the exercise bike later, he likes to use it in the evening. Pt stated that he enjoys the exercise. Pt stated that "I wanted to go to group today but I was gone" (sleepy.) Pt denied any symptoms today, stated, "I'm just waiting...it's taking so long." Pt did not appear to be responding to internal stimuli. S/I, H/I: Pt Denies A/VH: Pt denies. Sleep: Pt slept 6.75 hours last night per noc shift report, napped for most of the morning. ADL's: Independent Group attendance: No Were meds taken: Yes Any med S/E: None noted or reported. Mental Status Exam Appearance: Messy hair, dressed all in black; black sweat pants and t-shirt. Eye contact: Good Behavior: Calm, Cooperative, not a morning person, paces the unit, socializes with staff, watches TV. Speech: Clear, audible, minimal Mood: Euthymic Affect: Congruent with mood Thought process: Linear Thought Content: Waiting for discharge. Cognition: A/O X 4 Insight: Poor Judgment: Poor Interventions PRN's used: None Therapeutic interventions: 1:1 assessment, active listening, therapeutic conversation, maintained a safe and therapeutic environment, monitored behaviors and need for intervention, encouragement to perform personal hygiene, encouragement to go to group, Q 15 min safety checks. Restraints/seclusion/emergency medication: N/A Justification of Continued Inpatient Treatment: Pt. continues to require a safe and supportive environment, and remains GD r/t mental health. He is LPS conserved and awaiting placement.
[2020-01-24] MEDS: NICOTINE POLACRILEX 2 MG LOZENGE BC PRN (18:06)
[2020-01-24 19:38] VITALS: BP 139/82
[2020-01-24] MEDS: atorvastatin 10mg tablet PO SCH (20:22)
[2020-01-24] MEDS: LORazepam 1 MG tablet PO PRN (20:22)
[2020-01-24] MEDS ORDERED: LORazepam 1 MG tablet PO ONE (22:25)
--- NOTE | 2020-01-25 00:56 | NUR ---
Nursing Progress Note: Legal hold: LPS Client on an LPS conservatorship pending placement Report received from Stu GOULD with use of SBAR Why are they here: Patient had been discharged previously with follow up at [facility] Team. Upon assessment by the [facility], it was determined patient was not able to obtain, food, assisted, or clothing and a 5150 for GD was written. Patient returned within hours of discharge. At time of return patient denied any symptoms related to his mental illness diagnosis of Schizophrenia. He continues to present with cognitive impairment which impedes his ability to care of himself, and requires multiple supports and external structures. Assessment What has happened this shift: At the beginning of the shift the patient was up on the unit and in the general patient areas. He was calm, social and friendly when approached for the evening assessment. He denied significant anxiety but stated that at night he has increased anxiety. Later in the evening the patient became very animated and was gesturing in the air and talking to himself. He paced rapidly up and down the hallway and at one point began running in the jama. He appeared to be actively responding to internal stimuli but denied that when asked. He stated that he was not able to calm down on his own. His HR was 133 and his BP was 141/85. Psychiatric provider notified and orders were received. S/I, H/I: Denied A/VH: Denied but appeared to be responding to internal stimuli ADL's: Appeared disheveled and had not yet showered for the day. Were meds taken: Yes Any med S/E the patient stated that during the day he felt fatigued Mental Status Exam Appearance: Appears his stated age. Dressed appropriately for the unit Eye contact: Good Behavior: See above note Speech: Spontaneous Mood: anxious Affect: congruent to mood Thought process: limited focus, limited insight Thought Content: minimal and vague responses Cognition: alert oriented Insight: impaired Judgment: impaired Interventions PRN's used: Ativan one mg and followed by one time order of ativan two mg Therapeutic interventions: One to one with the patient to assess for disordered thought processes. Justification of Continued Inpatient Treatment: The patient is pending placement
[2020-01-25] MEDS: nicotine 7mg patch - 24hr TD SCH (08:25)
[2020-01-25] MEDS: docusate sod 100mg capsule PO SCH ×2 (08:25→20:55)
[2020-01-25] MEDS: atomoxetine 40 MG capsule PO SCH (08:25)
[2020-01-25] MEDS: naproxen 500mg tablet PO SCH ×2 (08:25→17:27)
[2020-01-25] MEDS: pantoprazole 40mg Tablet.DR PO SCH (08:26)
[2020-01-25] MEDS: sennosides 8.6mg tablet PO SCH ×2 (08:26→20:55)
[2020-01-25] MEDS: benztropine 1mg tablet PO SCH ×2 (08:26→20:55)
[2020-01-25 08:58] VITALS: BP 104/56
[2020-01-25] MEDS: clozapine 25mg tablet PO SCH (13:23)
[2020-01-25] MEDS: clozapine 100mg tablet PO SCH ×2 (13:23→20:54)
[2020-01-25] MEDS ORDERED: LORazepam 1 MG tablet PO PRN (14:25)
--- NOTE | 2020-01-25 16:34 | NUR ---
NURSING PROGRESS NOTE Legal hold: LPS conserved Client on involuntary status for GD Report received from Yolanda GOULD with use of SBAR Why are they here: Patient had been discharged previously with follow up at [facility] Team. Upon assessment by the [facility], it was determined patient was not able to obtain, food, care home, or clothing and a 5150 for GD was written. Patient returned within hours of discharge. At time of return patient denied any symptoms related to his mental illness diagnosis of Schizophrenia. He continues to present with cognitive impairment which impedes his ability to care of himself, and requires multiple supports and external structures. Assessment What has happened this shift: Pt appeared fatigued until lunch time. Asleep at change of shift, up to breakfast, took meds then goes back to sleep until late morning. Did not get up for 1000 group, too sleepy. Was up for lunch and remained active and engaged with others the rest of the day. Denies suicidal thoughts, and denies hallucinations currently. Bored, tired of being here but non the less is well natured and even tempered. S/I, H/I: Pt Denies A/VH: Pt denies. Sleep: napped most of morning ADL's: Independent Group attendance: No Were meds taken: Yes Any med S/E: None noted or reported. Mental Status Exam Appearance: slightly disheveled Eye contact: Good Behavior: Calm, Cooperative Speech: Clear Mood: Euthymic Affect: Congruent with mood Thought process: Linear Thought Content: Waiting for discharge. Cognition: A/O X 4 Insight: Poor Judgment: good Interventions PRN's used: None Therapeutic interventions: 1:1 assessment, active listening, therapeutic conversation, maintained a safe and therapeutic environment, monitored behaviors and need for intervention, encouragement to perform personal hygiene, encouragement to go to group, Q 15 min safety checks. Restraints/seclusion/emergency medication: N/A Justification of Continued Inpatient Treatment: Pt. continues to require a safe and supportive environment, and remains GD r/t mental health. He is LPS conserved and awaiting placement.
[2020-01-25 19:00] VITALS: BP_SYST 128
[2020-01-25] MEDS: atorvastatin 10mg tablet PO SCH (20:55)
[2020-01-25] MEDS: LORazepam 1 MG tablet PO PRN (21:01)
[2020-01-25] MEDS: NICOTINE POLACRILEX 2 MG LOZENGE BC PRN (21:01)
--- NOTE | 2020-01-26 03:42 | NUR ---
NURSING PROGRESS NOTE Legal hold: LPS conserved Client on involuntary status for GD Report received from LUIS FERNANDO Martinez with use of SBAR Why are they here: Patient had been discharged previously with follow up at [facility] Team. Upon assessment by the [facility], it was determined patient was not able to obtain, food, half-way, or clothing and a 5150 for GD was written. Patient returned within hours of discharge. At time of return patient denied any symptoms related to his mental illness diagnosis of Schizophrenia. He continues to present with cognitive impairment which impedes his ability to care of himself, and requires multiple supports and external structures. Assessment What has happened this shift: Patient socialized with others and watched television until going to bed. Patient is well oriented and states he is feeling good. Patient consumed his dinner and has been medication compliant. This patient denies S/I or H/I. S/I, H/I: Pt Denies A/VH: Pt denies. Sleep: napped most of morning ADL's: Independent Group attendance: No Were meds taken: Yes Any med S/E: None noted or reported. Mental Status Exam Appearance: slightly disheveled Eye contact: Good Behavior: Calm, Cooperative. Speech: Clear, normal rate, rhythm, and tone. Mood: Stable. Affect: Congruent with mood. Thought process: Linear. Thought Content: Food and discharge. Cognition: A/O X 4. Insight: Poor. Judgment: good. Interventions PRN's used: None Therapeutic interventions: 1:1 assessment, active listening, therapeutic conversation, maintained a safe and therapeutic environment, monitored behaviors and need for intervention, encouragement to perform personal hygiene, encouragement to go to group, Q 15 min safety checks. Restraints/seclusion/emergency medication: N/A Justification of Continued Inpatient Treatment: Pt. continues to require a safe and supportive environment, and remains GD r/t mental health. He is LPS conserved and awaiting placement.
[2020-01-26 08:00] VITALS: BP 131/60
[2020-01-26] MEDS: benztropine 1mg tablet PO SCH ×2 (08:19→20:08)
[2020-01-26] MEDS: atomoxetine 40 MG capsule PO SCH (08:19)
[2020-01-26] MEDS: naproxen 500mg tablet PO SCH ×2 (08:19→16:47)
[2020-01-26] MEDS: pantoprazole 40mg Tablet.DR PO SCH (08:19)
[2020-01-26] MEDS: nicotine 7mg patch - 24hr TD SCH (08:19)
[2020-01-26] MEDS: docusate sod 100mg capsule PO SCH ×2 (08:20→20:08)
[2020-01-26] MEDS: sennosides 8.6mg tablet PO SCH ×2 (08:20→20:08)
--- NOTE | 2020-01-26 10:00 | NUR ---
Group Therapy: Process Group This Clinicians goals for this process group were as follows: (1) Share psychoeducation about the importance of learning a process to control emotional self-regulation, which includes: awareness of emotional triggers, the ability to pause the escalation process by taking deep breaths, processing mental and emotional thoughts and sensations, followed by thinking about appropriate interventions that will successfully enable Patients to utilize interventions to reduce the intensity, frequency, and duration of their unwanted mental health symptoms. (2) Provide psychoeducation on the STOPP acronym, which stands for Stop, Take a breath, Observe the Situation, Put things into perspective, and Practice what works. (3) Encourage Client to process their personal experience of becoming emotionally escalated, while suggesting interventions that they could utilize to help them self-soothe. Patient identified experiencing the following levels of anxiety, depression, and anger/irritability while present in the group milieu. Anxiety: 09/15 Depression: 09/15 Anger irritability: 09/15 Patient presented as open and cooperative within the group milieu. When called upon by this Clinician to talk about how he experiences his anxiety in his mind and body when he observes the situation regarding his unwanted symptoms, Patient shared that he often noticed that feelings of irritability and unease in his body often preceded episodes of increased psychosis and delusional thinking. This Clinician commended Patient for his insight and his willingness to share his thoughts in session. Client presented at attentive and non-obtrusive within the group milieu. Yakov Lopez MA, MATTHIEU Addendum: 01/30/20 at 0810 by Yakov Lopez SS Amended: Links added.
--- NOTE | 2020-01-26 11:38 | NUR ---
NURSING PROGRESS NOTE Legal hold: LPS conserved Client on involuntary status for GD Report received from LUIS FERNANDO Lopez with use of SBAR Why are they here: Patient had been discharged previously with follow up at [facility] Team. Upon assessment by the [facility], it was determined patient was not able to obtain, food, chcf, or clothing and a 5150 for GD was written. Patient returned within hours of discharge. At time of return patient denied any symptoms related to his mental illness diagnosis of Schizophrenia. He continues to present with cognitive impairment which impedes his ability to care of himself, and requires multiple supports and external structures. Assessment What has happened this shift: Asleep at change of shift, up to breakfast, Was up for lunch and remained active and engaged with others the rest of the day. Denies suicidal thoughts, and denies hallucinations. Interacts well with others and is well liked by his peers. Patient has a strong ability to get his needs met in an appropriate way. S/I, H/I: Pt Denies A/VH: Pt denies. Sleep: napped most of morning ADL's: Independent Group attendance: No Were meds taken: Yes Any med S/E: None noted or reported. Mental Status Exam Appearance: WNL Eye contact: Good Behavior: Calm, Cooperative Speech: Clear Mood: Euthymic Affect: Congruent with mood Thought process: Linear Thought Content: Waiting for discharge. Cognition: A/O X 4 Insight: Poor Judgment: good Interventions PRN's used: None Therapeutic interventions: 1:1 assessment, active listening, therapeutic conversation, maintained a safe and therapeutic environment, monitored behaviors and need for intervention, encouragement to perform personal hygiene, encouragement to go to group, Q 15 min safety checks. Restraints/seclusion/emergency medication: N/A Justification of Continued Inpatient Treatment: Pt. continues to require a safe and supportive environment, and remains GD r/t mental health. He is LPS conserved and awaiting placement.
[2020-01-26] MEDS: clozapine 100mg tablet PO SCH ×2 (13:47→20:08)
[2020-01-26] MEDS: clozapine 25mg tablet PO SCH (13:47)
[2020-01-26 19:56] VITALS: BP 127/76
[2020-01-26] MEDS: atorvastatin 10mg tablet PO SCH (20:07)
[2020-01-26] MEDS: NICOTINE POLACRILEX 2 MG LOZENGE BC PRN (20:09)
[2020-01-26] MEDS: LORazepam 1 MG tablet PO PRN (20:15)
--- NOTE | 2020-01-27 00:54 | NUR ---
NURSING PROGRESS NOTE Legal hold: LPS conserved Client on involuntary status for GD Report received from LUIS FERNANDO Martinez with use of SBAR Why are they here: Patient had been discharged previously with follow up at [facility] Team. [place] [facility] [place] determined patient was not able to obtain, food, nursing home, or clothing and a 5150 for GD was written. Patient returned within hours of discharge. At time of return patient denied any symptoms related to his mental illness diagnosis of Schizophrenia. He continues to present with cognitive impairment which impedes his ability to care of himself, and requires multiple supports and external structures. Assessment What has happened this shift: Pt walks the halls smiling and laughing at times. He says his day went "great". He is observed socializing with peers happily. Pt denies SI/HI/AH/VH at this time. He watches TV until he is ready to go to sleep. He requests an ativan just before bed, which is given to him. S/I, H/I: Denies A/VH: internal preoccupation at times Sleep:see sleep assessment notation ADL's: Independent Group attendance: No Were Meds taken: Yes Any med S/E: No Mental Status Exam Appearance: clean Eye contact: Fair Behavior:paces, smiles, watches TV Speech: Normal Mood: Euthymic Affect: content Thought process: Linear Thought Content: circumstantial Cognition: Alert Insight: Poor Judgment: Poor Interventions PRN's used: ativan Therapeutic interventions: AM assessment; prompts to shower and attend groups and get up for meals; medication administration/education/monitoring, Q 15 min safety checks. Restraints/seclusion/emergency medication: N/A Justification of Continued Inpatient Treatment: Pt is gravely disabled, he is LPS conserved, he continues to need medication adjustment and monitoring and a safe and supportive environment
[2020-01-27 08:00] VITALS: BP 126/82
[2020-01-27] MEDS: sennosides 8.6mg tablet PO SCH ×2 (08:08→20:01)
[2020-01-27] MEDS: pantoprazole 40mg Tablet.DR PO SCH (08:08)
[2020-01-27] MEDS: naproxen 500mg tablet PO SCH ×2 (08:08→17:28)
[2020-01-27] MEDS: benztropine 1mg tablet PO SCH ×2 (08:08→20:00)
[2020-01-27] MEDS: atomoxetine 40 MG capsule PO SCH (08:08)
[2020-01-27] MEDS: docusate sod 100mg capsule PO SCH ×2 (08:08→20:01)
[2020-01-27] MEDS: nicotine 7mg patch - 24hr TD SCH (08:08)
[2020-01-27] MEDS: clozapine 25mg tablet PO SCH (13:52)
[2020-01-27] MEDS: clozapine 100mg tablet PO SCH ×2 (13:53→20:00)
--- NOTE | 2020-01-27 13:55 | NUR ---
NURSING PROGRESS NOTE Legal hold: LPS conserved Client on involuntary status for GD Report received from LUIS FERNANDO Miranda with use of SBAR Why are they here: Patient had been discharged previously with follow up at [facility] Team. Upon assessment by the [facility], it was determined patient was not able to obtain, food, senior living, or clothing and a 5150 for GD was written. Patient returned within hours of discharge. At time of return patient denied any symptoms related to his mental illness diagnosis of Schizophrenia. He continues to present with cognitive impairment which impedes his ability to care of himself, and requires multiple supports and external structures. Assessment What has happened this shift: Asleep at change of shift, up to breakfast, Was up for lunch and remained active and engaged with others the rest of the day. Denies suicidal thoughts, and denies hallucinations. Slept after breakfast then up most of day. Watching TV with his peers. Friendly, kind, cooperative. S/I, H/I: Pt Denies A/VH: Pt denies. Sleep: napped most of morning ADL's: Independent Group attendance: No Were meds taken: Yes Any med S/E: None noted or reported. Mental Status Exam Appearance: WNL Eye contact: Good Behavior: Calm, Cooperative Speech: Clear Mood: Euthymic Affect: Congruent with mood Thought process: Linear Thought Content: Waiting for discharge. Cognition: A/O X 4 Insight: fair Judgment: good Interventions PRN's used: None Therapeutic interventions: 1:1 assessment, active listening, therapeutic conversation, maintained a safe and therapeutic environment, monitored behaviors and need for intervention, encouragement to perform personal hygiene, encouragement to go to group, Q 15 min safety checks. Restraints/seclusion/emergency medication: N/A Justification of Continued Inpatient Treatment: Pt. continues to require a safe and supportive environment, and remains GD r/t mental health. He is LPS conserved and awaiting placement.
[2020-01-27 19:56] VITALS: BP 128/83
[2020-01-27] MEDS: atorvastatin 10mg tablet PO SCH (20:01)
[2020-01-27] MEDS: NICOTINE POLACRILEX 2 MG LOZENGE BC PRN (20:01)
[2020-01-27] MEDS: LORazepam 1 MG tablet PO PRN (22:15)
--- NOTE | 2020-01-28 00:58 | NUR ---
NURSING PROGRESS NOTE Legal hold: LPS conserved Client on involuntary status for GD Report received from LUIS FERNANDO Martinez with use of SBAR Why are they here: Patient had been discharged previously with follow up at [facility] Team. Upon assessment by the [facility], it was determined patient was not able to obtain, food, fpc, or clothing and a 5150 for GD was written. Patient returned within hours of discharge. At time of return patient denied any symptoms related to his mental illness diagnosis of Schizophrenia. He continues to present with cognitive impairment which impedes his ability to care of himself, and requires multiple supports and external structures. Assessment What has happened this shift: PT is sitting in red room socializing with peers. He has a bandage on his chin, "I cut myself shaving" he laughs. He smiles and makes good eye contact. He is cooperative with 1:1 assessment and medication compliant. He requests an ativan just before bed, which is given to him. S/I, H/I: Denies A/VH: internal preoccupation at times Sleep:see sleep assessment notation ADL's: Independent Group attendance: No Were Meds taken: Yes Any med S/E: No Mental Status Exam Appearance: clean Eye contact: Fair Behavior:paces, smiles, watches TV Speech: Normal Mood: Euthymic Affect: content Thought process: Linear Thought Content: circumstantial Cognition: Alert Insight: Poor Judgment: Poor Interventions PRN's used: ativan Therapeutic interventions: AM assessment; prompts to shower and attend groups and get up for meals; medication administration/education/monitoring, Q 15 min safety checks. Restraints/seclusion/emergency medication: N/A Justification of Continued Inpatient Treatment: Pt is gravely disabled, he is LPS conserved, he continues to need medication adjustment and monitoring and a safe and supportive environment
[2020-01-28 07:54] LABS: BASOPHILS % (AUTO) 0.6 % (0-1); EOSINOPHILS # (AUTO) 0.2 X10'3 (0-0.9); EOSINOPHILS % (AUTO) 2.9 % (0-6); HEMATOCRIT 43.1 % (42.0-52.0); HEMOGLOBIN 14.3 g/dl (14.0-17.9); LYMPHOCYTES # (AUTO) 2.2 X10'3 (1.1-4.8); LYMPHOCYTES % (AUTO) 29.2 % (21-51); MEAN CORPUSCULAR HEMOGLOBIN 27.9 PG (27.0-31.0); MEAN CORPUSCULAR HGB CONC 33.1 g/dL (33.0-36.5); MEAN CORPUSCULAR VOLUME 84.3 FL (78-98); MEAN PLATELET VOLUME 8.4 FL (7.4-10.4); MONOCYTES # (AUTO) 0.7 X10'3 (0-0.9); MONOCYTES % (AUTO) 9.7 % (2-12); NEUTROPHILS # (AUTO) 4.3 X10'3 (1.8-7.7); NEUTROPHILS % (AUTO) 57.6 % (42-75); PLATELET COUNT 181 X10'3 (140-440); RED BLOOD COUNT 5.11 X10'6 (4.70-6.10); RED CELL DISTRIBUTION WIDTH 14.6 % (11.5-14.5); WHITE BLOOD COUNT 7.5 X10'3 (4.5-11.0)
[2020-01-28 08:00] VITALS: BP 120/79
[2020-01-28] MEDS: nicotine 7mg patch - 24hr TD SCH (08:21)
[2020-01-28] MEDS: benztropine 1mg tablet PO SCH ×2 (08:22→20:30)
[2020-01-28] MEDS: sennosides 8.6mg tablet PO SCH ×2 (08:22→20:29)
[2020-01-28] MEDS: naproxen 500mg tablet PO SCH ×2 (08:22→18:06)
[2020-01-28] MEDS: atomoxetine 40 MG capsule PO SCH (08:22)
[2020-01-28] MEDS: docusate sod 100mg capsule PO SCH ×2 (08:23→20:30)
[2020-01-28] MEDS: pantoprazole 40mg Tablet.DR PO SCH (08:23)
--- NOTE | 2020-01-28 14:16 | NUR ---
Nursing Progress Note: Legal hold: LPS Client on involuntary status for GD Report received from RN with use of SBAR Why are they here: Patient had been discharged previously with follow up at [facility]. Upon assessment by the [facility], it was determined patient was not able to obtain, food, jail, or clothing and a 5150 for GD was written. Patient returned within hours of discharge. At time of return patient denied any symptoms related to his mental illness diagnosis of Schizophrenia. He continues to present with cognitive impairment which impedes his ability to care of himself, and requires multiple supports and external structures. Assessment What has happened this shift: Received Pt in bed sleeping w/o distress at beginning of shift. He awoke for vitals and was pleasant/cooperative. Pt ate breakfast and took AM meds and layed down for a nap. Overall in euthymic mood and talked with his roommate a bit in the morning. Isolated mostly today but did watch TV and movie with others while minimally interacting. He denies AV/Hs and was not seen responding to internal stimuli. Pt had no instances of agitation or aggressive behavior. S/I, H/I: Pt Denies A/VH: Denies. Sleep: Napped in AM ADL's: Independent Group attendance: No groups today Were meds taken: Yes Any med S/E: None noted or reported. Mental Status Exam Appearance: Clean and neat in personal attire. Eye contact: Good Behavior: Calm, Cooperative Speech: Clear, audible, minimal Mood: Euthymic Affect: Congruent with mood Thought process: Linear Thought Content: Entertainment Cognition: A/O X 4 Insight: Poor Judgment: Poor Interventions PRN's used: None. Therapeutic interventions: 1:1 assessment, therapeutic conversation, active listening, maintained a safe and therapeutic environment, monitored behaviors and need for intervention, encouragement to perform personal hygiene, Q 15 min safety checks. Restraints/seclusion/emergency medication: N/A Justification of Continued Inpatient Treatment: Pt. continues to require a safe and supportive environment, and remains GD r/t mental health. He is LPS conserved and awaiting IMD placement.
[2020-01-28] MEDS: clozapine 100mg tablet PO SCH ×2 (15:20→20:31)
[2020-01-28] MEDS: clozapine 25mg tablet PO SCH (15:20)
[2020-01-28 20:22] VITALS: BP 145/89
[2020-01-28] MEDS: atorvastatin 10mg tablet PO SCH (20:30)
[2020-01-28] MEDS: LORazepam 1 MG tablet PO PRN (21:38)
[2020-01-28] MEDS: NICOTINE POLACRILEX 2 MG LOZENGE BC PRN (21:40)
--- NOTE | 2020-01-29 00:54 | NUR ---
Nursing Progress Note: Legal hold: LPS Client on involuntary status for GD Report received from RN with use of SBAR Why are they here: Patient had been discharged previously with follow up at [facility] Team. Upon assessment by the [facility] [place], it was determined patient was not able to obtain, food, nursing home, or clothing and a 5150 for GD was written. Patient returned within hours of discharge. At time of return patient denied any symptoms related to his mental illness diagnosis of Schizophrenia. He continues to present with cognitive impairment which impedes his ability to care of himself, and requires multiple supports and external structures. Assessment What has happened this shift: Patient in rec room watching tv with peers. He is calm cheerful and cooperative and med compliant. He responds to internal stimuli while pacing and watching tv. S/I, H/I: Pt Denies A/VH: Denies. Sleep: Napped in AM ADL's: Independent Group attendance: No groups today Were meds taken: Yes Any med S/E: None noted or reported. Mental Status Exam Appearance: Clean and neat in personal attire. Eye contact: Good Behavior: Calm, Cooperative Speech: Clear, audible, minimal Mood: Euthymic Affect: Congruent with mood Thought process: Linear Thought Content: Entertainment Cognition: A/O X 4 Insight: Poor Judgment: Poor Interventions PRN's used: Ativan Therapeutic interventions: 1:1 assessment, therapeutic conversation, active listening, maintained a safe and therapeutic environment, monitored behaviors and need for intervention, encouragement to perform personal hygiene, Q 15 min safety checks. Restraints/seclusion/emergency medication: N/A Justification of Continued Inpatient Treatment: Pt. continues to require a safe and supportive environment, and remains GD r/t mental health. He is LPS conserved and awaiting IMD placement.
[2020-01-29 07:30] VITALS: BP 98/52
[2020-01-29] MEDS: benztropine 1mg tablet PO SCH ×2 (08:12→20:27)
[2020-01-29] MEDS: atomoxetine 40 MG capsule PO SCH (08:12)
[2020-01-29] MEDS: pantoprazole 40mg Tablet.DR PO SCH (08:12)
[2020-01-29] MEDS: sennosides 8.6mg tablet PO SCH ×2 (08:12→20:27)
[2020-01-29] MEDS: docusate sod 100mg capsule PO SCH ×2 (08:12→20:27)
[2020-01-29] MEDS: nicotine 7mg patch - 24hr TD SCH (08:15)
[2020-01-29] MEDS: naproxen 500mg tablet PO SCH ×2 (08:21→18:15)
[2020-01-29] MEDS: NICOTINE POLACRILEX 2 MG LOZENGE BC PRN ×2 (08:21→18:19)
[2020-01-29] MEDS: LORazepam 1 MG tablet PO PRN ×2 (12:45→21:47)
[2020-01-29] MEDS: clozapine 100mg tablet PO SCH ×2 (14:43→20:28)
[2020-01-29] MEDS: clozapine 25mg tablet PO SCH (14:43)
--- NOTE | 2020-01-29 17:55 | NUR ---
Nursing Progress Note: Legal hold: LPS Client on involuntary status for GD Report received from Juan GOULD with use of SBAR Why are they here: Patient had been discharged previously with follow up at [facility] Team. Upon assessment by the [facility], it was determined patient was not able to obtain, food, long-term, or clothing and a 5150 for GD was written. Patient returned within hours of discharge. At time of return patient denied any symptoms related to his mental illness diagnosis of Schizophrenia. He continues to present with cognitive impairment which impedes his ability to care of himself, and requires multiple supports and external structures. Assessment What has happened this shift: Received Pt in bed sleeping w/o distress at beginning of shift. He awoke for vitals and was pleasant/cooperative. Pt ate breakfast and took AM meds and layed down to sleep more. Pt. ate all meals in community room. At noon pt. found grooming himself in his room, applying cologne and putting in his earings. 1:1 done at bedside, pt. denies SI/HI, A/V hallucinations. Pt. gives minimal responses to interview questions. In mid afternoon pt. requested Ativan. When RN inquired of pt.'s feelings pt. states, "I know my time to go to the board and care is coming up and I'm having thoughts of trying to get away from here". When asked if pt. would inform staff if feelings to leave were getting stronger, pt. agreed. Pt. reports Ativan did not help his anxiety much, pt. given his afternoon Clozaril which helped him moderately. Pt. seen watching TV. Pt. communicates minimally with peers. S/I, H/I: Pt Denies A/VH: Denies Sleep: Napped all AM ADL's: Independent Group attendance: No groups today Were meds taken: Yes Any med S/E: None noted or reported. Mental Status Exam Appearance: Clean and well groomed in personal attire. Eye contact: Good Behavior: Cooperative, isolative to his room, watching TV in rec room Speech: Clear, audible, minimal Mood: Euthymic in AM but some anxiety reported in the afternoon. Affect: Flat Thought process: Linear Thought Content: Wanting to leave and not go to his board and care. Cognition: A/O X 4 Insight: Poor Judgment: Poor Interventions PRN's used: None. Therapeutic interventions: 1:1 assessment, therapeutic conversation, active listening, maintained a safe and therapeutic environment, monitored behaviors and need for intervention, encouragement to perform personal hygiene, Q 15 min safety checks. Restraints/seclusion/emergency medication: N/A Justification of Continued Inpatient Treatment: Pt. continues to require a safe and supportive environment, and remains GD r/t mental health. He is LPS conserved and awaiting IMD placement.
[2020-01-29] MEDS: atorvastatin 10mg tablet PO SCH (20:27)
[2020-01-29 20:30] VITALS: BP 116/65
--- NOTE | 2020-01-30 02:54 | NUR ---
Nursing Progress Note: Legal hold: LPS Client on involuntary status for GD Report received from Juan GOULD with use of SBAR Why are they here: Patient had been discharged previously with follow up at [facility] Team. Upon assessment by the [facility], it was determined patient was not able to obtain, food, snf, or clothing and a 5150 for GD was written. Patient returned within hours of discharge. At time of return patient denied any symptoms related to his mental illness diagnosis of Schizophrenia. He continues to present with cognitive impairment which impedes his ability to care of himself, and requires multiple supports and external structures. Assessment What has happened this shift: Patient up and watching tv in rec room with peers. Pt is cheerful and cooperative. He states that he sould be going to a board and care soon. S/I, H/I: Pt Denies A/VH: Denies Sleep: Napped all AM ADL's: Independent Group attendance: No groups today Were meds taken: Yes Any med S/E: None noted or reported. Mental Status Exam Appearance: Clean and well groomed in personal attire. Eye contact: Good Behavior: Cooperative, isolative to his room, watching TV in rec room Speech: Clear, audible, minimal Mood: Euthymic in AM but some anxiety reported in the afternoon. Affect: Flat Thought process: Linear Thought Content: Wanting to leave and not go to his board and care. Cognition: A/O X 4 Insight: Poor Judgment: Poor Interventions PRN's used: Ativan. Therapeutic interventions: 1:1 assessment, therapeutic conversation, active listening, maintained a safe and therapeutic environment, monitored behaviors and need for intervention, encouragement to perform personal hygiene, Q 15 min safety checks. Restraints/seclusion/emergency medication: N/A Justification of Continued Inpatient Treatment: Pt. continues to require a safe and supportive environment, and remains GD r/t mental health. He is LPS conserved and awaiting IMD placement.
[2020-01-30 07:30] VITALS: BP 103/51
[2020-01-30] MEDS: docusate sod 100mg capsule PO SCH ×2 (08:11→20:12)
[2020-01-30] MEDS: pantoprazole 40mg Tablet.DR PO SCH (08:11)
[2020-01-30] MEDS: atomoxetine 40 MG capsule PO SCH (08:11)
[2020-01-30] MEDS: benztropine 1mg tablet PO SCH ×2 (08:11→20:13)
[2020-01-30] MEDS: naproxen 500mg tablet PO SCH ×2 (08:12→18:09)
[2020-01-30] MEDS: sennosides 8.6mg tablet PO SCH ×2 (08:12→20:13)
[2020-01-30] MEDS: nicotine 7mg patch - 24hr TD SCH (08:18)
[2020-01-30] MEDS: NICOTINE POLACRILEX 2 MG LOZENGE BC PRN ×2 (08:22→18:09)
[2020-01-30] MEDS: clozapine 25mg tablet PO SCH (14:41)
[2020-01-30] MEDS: clozapine 100mg tablet PO SCH ×2 (14:41→20:14)
--- NOTE | 2020-01-30 18:06 | NUR ---
Nursing Progress Note: Legal hold: LPS Client on involuntary status for GD Report received from Yolanda GOULD with use of SBAR Why are they here: Patient had been discharged previously with follow up at [facility] Team. Upon assessment by the [facility], it was determined patient was not able to obtain, food, group home, or clothing and a 5150 for GD was written. Patient returned within hours of discharge. At time of return patient denied any symptoms related to his mental illness diagnosis of Schizophrenia. He continues to present with cognitive impairment which impedes his ability to care of himself, and requires multiple supports and external structures. Assessment What has happened this shift: Received Pt in bed sleeping w/o distress at beginning of shift. He awoke for vitals and was pleasant/cooperative. Pt ate breakfast and took AM meds and layed down to sleep more. Pt. was up around 10 AM watching TV in Rec Room withi other patients. Pt. feels like he is overmedicated. Pt. states, "We need to stop the meds because my head feels like it is filling up". Pt. denies SI/HI, A/V hallucinations. Pt. denies anxiety today, denies any feelings of wanting to run away before he can be sent to a board and care. Pt. napped in his room for 2hrs this afternoon. S/I, H/I: Denies A/VH: Denies Sleep: Napped intermittently throughout the day ADL's: Independent Group attendance: No groups today Were meds taken: Yes Any med S/E: None noted or reported. Mental Status Exam Appearance: Clean and well groomed in personal attire. Eye contact: Good Behavior: Cooperative, isolative to his room, watching TV in rec room, minimal socializing Speech: Clear, audible, minimal Mood: Euthymic Affect: Flat Thought process: Linear Thought Content: Concerned that he is overmedicated Cognition: A/O X 4 Insight: Poor Judgment: Poor Interventions PRN's used: Nicotine Lozenge Therapeutic interventions: 1:1 assessment, therapeutic conversation, active listening, maintained a safe and therapeutic environment, monitored behaviors and need for intervention, encouragement to perform personal hygiene, Q 15 min safety checks. Restraints/seclusion/emergency medication: N/A Justification of Continued Inpatient Treatment: Pt. continues to require a safe and supportive environment, and remains GD r/t mental health. He is LPS conserved and awaiting IMD placement.
[2020-01-30] MEDS: atorvastatin 10mg tablet PO SCH (20:13)
[2020-01-30 20:25] VITALS: BP 123/76
[2020-01-30] MEDS: LORazepam 1 MG tablet PO PRN (21:51)
--- NOTE | 2020-01-31 01:19 | NUR ---
Nursing Progress Note: Legal hold: LPS Client on involuntary status for GD Report received from Juan GOULD with use of SBAR Why are they here: Patient had been discharged previously with follow up at [facility] Team. Upon assessment by the [facility] [place], it was determined patient was not able to obtain, food, senior living, or clothing and a 5150 for GD was written. Patient returned within hours of discharge. At time of return patient denied any symptoms related to his mental illness diagnosis of Schizophrenia. He continues to present with cognitive impairment which impedes his ability to care of himself, and requires multiple supports and external structures. Assessment What has happened this shift: Patient in rec room watching tv with peers. happy and cooperative. Pt still responding to internal stimuli talking to him self.Pt is med compliant and reports anxiety about going to a board and care. S/I, H/I: Denies A/VH: Denies Sleep: Napped intermittently throughout the day ADL's: Independent Group attendance: No groups today Were meds taken: Yes Any med S/E: None noted or reported. Mental Status Exam Appearance: Clean and well groomed in personal attire. Eye contact: Good Behavior: Cooperative, watching TV in rec room, minimal socializing Speech: Clear, audible, minimal Mood: Euthymic Affect: Flat Thought process: Linear Thought Content: Concerned that he is overmedicated Cognition: A/O X 4 Insight: Poor Judgment: Poor Interventions PRN's used: Nicotine Lozenge Therapeutic interventions: 1:1 assessment, therapeutic conversation, active listening, maintained a safe and therapeutic environment, monitored behaviors and need for intervention, encouragement to perform personal hygiene, Q 15 min safety checks. Restraints/seclusion/emergency medication: N/A Justification of Continued Inpatient Treatment: Pt. continues to require a safe and supportive environment, and remains GD r/t mental health. He is LPS conserved and awaiting IMD placement.
[2020-01-31 08:15] VITALS: BP 85/58
[2020-01-31] MEDS: sennosides 8.6mg tablet PO SCH ×2 (08:35→20:36)
[2020-01-31] MEDS: benztropine 1mg tablet PO SCH ×2 (08:35→20:36)
[2020-01-31] MEDS: pantoprazole 40mg Tablet.DR PO SCH (08:35)
[2020-01-31] MEDS: nicotine 7mg patch - 24hr TD SCH (08:35)
[2020-01-31] MEDS: docusate sod 100mg capsule PO SCH ×2 (08:36→20:36)
[2020-01-31] MEDS: atomoxetine 40 MG capsule PO SCH (08:36)
[2020-01-31] MEDS: naproxen 500mg tablet PO SCH ×2 (08:46→17:56)
[2020-01-31] MEDS: NICOTINE POLACRILEX 2 MG LOZENGE BC PRN (12:03)
[2020-01-31] MEDS ORDERED: ibuprofen 200mg tablet PO SCH (12:30)
[2020-01-31] MEDS: clozapine 25mg tablet PO SCH (13:17)
[2020-01-31] MEDS: clozapine 100mg tablet PO SCH ×2 (13:17→20:36)
--- NOTE | 2020-01-31 15:48 | NUR ---
Nursing Progress Note: Legal hold: LPS Client on involuntary status for GD Report received from Yolanda GOULD with use of SBAR Why are they here: Patient had been discharged previously with follow up at [facility]. [facility] was determined patient was not able to obtain, food, [facility], or clothing and a 5150 for GD was written. Patient returned within hours of discharge. At time of return patient denied any symptoms related to his mental illness diagnosis of Schizophrenia. He continues to present with cognitive impairment which impedes his ability to care of himself, and requires multiple supports and external structures. Assessment What has happened this shift: Received patient sleeping in bed at shift change. Patient awakens for meds and breakfast, then goes back to bed per his usual routine. Pt. Awakes for lunch, and is reminiscing about when he was a kid and used to go skiing in [place]. He has good memories of ski trips. Patient takes all medications without incident. Patient states that when he went on outdoor outing that he started sweating and not feeling good. He states I wonder if I have cancer. Pt. States that he does not feel over medicated today, but feels that his weight may be a problem. S/I, H/I: Denies A/VH: Denies Sleep: 6 hrs. NOC, napped. ADL's: Independent Group attendance: No Were meds taken: Yes Any med S/E: None noted or reported. Mental Status Exam Appearance: Clean and neat in personal attire. Eye contact: Good Behavior: Calm and cooperative. Speech: Clear, audible, minimal Mood: Euthymic Affect: Blunted. Thought process: Linear Thought Content: Discharge destination. Cognition: A/O X 4 Insight: Poor Judgment: Poor Interventions PRN's used: Nicotine Lozenge Therapeutic interventions: 1:1 assessment, therapeutic conversation, active listening, maintained a safe and therapeutic environment, monitored behaviors and need for intervention, encouragement to perform personal hygiene, Q 15 min safety checks. Restraints/seclusion/emergency medication: N/A Justification of Continued Inpatient Treatment: Pt. continues to require a safe and supportive environment, and remains GD r/t mental health. He is LPS conserved and awaiting IMD placement.
[2020-01-31 20:00] VITALS: BP 138/82
[2020-01-31] MEDS: LORazepam 1 MG tablet PO PRN (20:41)
[2020-01-31] MEDS: atorvastatin 10mg tablet PO SCH (20:41)
--- NOTE | 2020-01-31 23:57 | NUR ---
Nursing Progress Note Legal hold: LPS Client on an LPS hold for gravely disabled Report received from Stu GOULD with use of SBAR Why are they here: Patient had been discharged previously with follow up at [facility] Team. Upon assessment by the [facility], it was determined patient was not able to obtain, food, fpc, or clothing and a 5150 for GD was written. Patient returned within hours of discharge. At time of return patient denied any symptoms related to his mental illness diagnosis of Schizophrenia. He continues to present with cognitive impairment which impedes his ability to care of himself, and requires multiple supports and external structures. Assessment What has happened this shift: The patient has been up on the unit and in the general patient areas. He is pleasant, social and friendly. He requires no redirection S/I, H/I Denies A/VH: Denies ADL's: independent Were meds taken: yes Any med S/E: elevated HR Mental Status Exam Appearance: appears his stated age. dressed in street clothes Eye contact: direct Behavior: calm cooperative, appropriate Speech: spontaneous, normal rate and volume Mood: In good spirits described his mood as "good" Affect: congruent to stated mood Thought process: logical Cognition: alert and oriented Insight: poor Judgment: poor Interventions PRN's used: Ativan 2mg per patient request Therapeutic interventions: One to one with the patient to asses for severity of mental health symptoms and evaluated for med side effects. Restraints/seclusion/emergency medication: NA Justification of Continued Inpatient Treatment: The patient is here pending placement through the [facility] office.
[2020-02-01 07:28] VITALS: BP 113/57
[2020-02-01] MEDS: naproxen 500mg tablet PO SCH ×2 (07:46→16:56)
[2020-02-01] MEDS: nicotine 7mg patch - 24hr TD SCH (07:46)
[2020-02-01] MEDS: pantoprazole 40mg Tablet.DR PO SCH (07:46)
[2020-02-01] MEDS: docusate sod 100mg capsule PO SCH ×2 (07:46→21:29)
[2020-02-01] MEDS: benztropine 1mg tablet PO SCH ×2 (07:46→21:29)
[2020-02-01] MEDS: sennosides 8.6mg tablet PO SCH ×2 (07:46→21:30)
[2020-02-01] MEDS: atomoxetine 40 MG capsule PO SCH (07:46)
[2020-02-01] MEDS: clozapine 100mg tablet PO SCH ×2 (13:43→21:30)
[2020-02-01] MEDS: clozapine 25mg tablet PO SCH (13:43)
[2020-02-01] MEDS: acetaminophen 325mg tablet PO PRN (13:53)
--- NOTE | 2020-02-01 14:36 | NUR ---
NURSING PROGRESS NOTE Legal hold: LPS Client on involuntary status for GD Report received from Yolanda GOULD with use of SBAR Why are they here: Patient had been discharged previously with follow up at [facility] Team. Upon assessment by the [facility] [place], it was determined patient was not able to obtain, food, skilled nursing, or clothing and a 5150 for GD was written. Patient returned within hours of discharge. At time of return patient denied any symptoms related to his mental illness diagnosis of Schizophrenia. He continues to present with cognitive impairment which impedes his ability to care of himself, and requires multiple supports and external structures. Assessment What has happened this shift: Asleep at change of shift, awakened for meds and then came to breakfast. Depressed, flat affect. When asked how he felt about waiting for placement he stated, "I feel empty." When asked what he liked to do in the past he stated, "I like to build models and then paint them, and I like to go for walks." Reported conversation to . c/O THOMAS and was given Tylenol. S/I, H/I: Denies A/VH: Denies Sleep: napped ADL's: Independent Group attendance: No Were meds taken: Yes Any med S/E: None noted or reported. Mental Status Exam Appearance: Clean and neat Eye contact: Good Behavior: Calm, isolates at times Speech: Clear, soft Mood: Depressed Affect: flat Thought process: Linear Thought Content: feelings of emptiness, having nothing to do Cognition: Alert Insight: fair Judgment: good Interventions PRN's used: Nicotine Lozenge, Tylenol Therapeutic interventions: 1:1 assessment, therapeutic conversation, active listening, maintained a safe and therapeutic environment, monitored behaviors and need for intervention, encouragement to perform personal hygiene, Q 15 min safety checks. Restraints/seclusion/emergency medication: N/A Justification of Continued Inpatient Treatment: Pt. continues to require a safe and supportive environment, and remains GD r/t mental health. He is LPS conserved and awaiting IMD placement.
[2020-02-01 19:00] VITALS: BP 110/79
[2020-02-01] MEDS: atorvastatin 10mg tablet PO SCH (21:29)
[2020-02-01] MEDS: LORazepam 1 MG tablet PO PRN (21:36)
--- NOTE | 2020-02-02 05:28 | NUR ---
NURSING PROGRESS NOTE Legal hold: LPS Client on involuntary status for GD Report received from Yolanda GOULD with use of SBAR Why are they here: Patient had been discharged previously with follow up at [facility] Team. Upon assessment by the [facility], it was determined patient was not able to obtain, food, residential, or clothing and a 5150 for GD was written. Patient returned within hours of discharge. At time of return patient denied any symptoms related to his mental illness diagnosis of Schizophrenia. He continues to present with cognitive impairment which impedes his ability to care of himself, and requires multiple supports and external structures. Assessment What has happened this shift: Patient watching TV with peers at the beginning of shift. He continues to c/o boredom and appears depressed. Patient denies SI, HI, A/VH. He was observed pacing the jama and briefly turned toward the wall and began muttering. He remains pleasant and cooperative with all care; compliant with all medication. PRN Ativan provided upon request with positive effect. S/I, H/I: Denies A/VH: Denies Sleep: Refer to sleep assessment ADL's: Independent Group attendance: No Were meds taken: Yes Any med S/E: None noted or reported. Mental Status Exam Appearance: Neat, clean and appropriate attire Eye contact: Good Behavior: Calm, isolates at times Speech: Clear, soft, regular rate/rhythm Mood: Depressed Affect: Congruent Thought process: Linear Thought Content: Bored Cognition: Intact Insight: fair Judgment: good Interventions PRN's used: Ativan Therapeutic interventions: 1:1 assessment, therapeutic conversation, active listening, maintained a safe and therapeutic environment, monitored behaviors and need for intervention, encouragement to perform personal hygiene, Q 15 min safety checks. Restraints/seclusion/emergency medication: N/A Justification of Continued Inpatient Treatment: Pt. continues to require a safe and supportive environment, and remains GD r/t mental health. He is LPS conserved and awaiting IMD placement.
[2020-02-02] MEDS: nicotine 7mg patch - 24hr TD SCH ×3 (07:52→08:00)
[2020-02-02] MEDS: sennosides 8.6mg tablet PO SCH ×2 (07:53→22:03)
[2020-02-02] MEDS: atomoxetine 40 MG capsule PO SCH (07:53)
[2020-02-02] MEDS: benztropine 1mg tablet PO SCH ×2 (07:53→22:03)
[2020-02-02] MEDS: docusate sod 100mg capsule PO SCH ×2 (07:53→22:03)
[2020-02-02] MEDS: pantoprazole 40mg Tablet.DR PO SCH (07:53)
[2020-02-02] MEDS: naproxen 500mg tablet PO SCH ×2 (07:53→17:36)
[2020-02-02 08:00] VITALS: BP 132/55
--- NOTE | 2020-02-02 13:11 | NUR ---
Reassessment: No significant changes since last RD assessment, pt continues eating well with 75-100% PO intake meeting nutrient needs. Pt +[address] kg [address] assessment. [facility] 01/31. No further nutrition intervention implemented at this time. Will continue to follow. Rec: 1. continue heart healthy diet 2. Double eggs q breakfast, double meat BIDLD; extra fruits/vegetables on meal trays; salad BIDLD all per diet order 3. routine bowel care 4. wt per rx Addendum: 02/02/20 at [address] Amended: Links added.
[2020-02-02] MEDS: clozapine 100mg tablet PO SCH ×2 (13:34→22:02)
[2020-02-02] MEDS: clozapine 25mg tablet PO SCH (13:34)
--- NOTE | 2020-02-02 14:07 | NUR ---
NURSING PROGRESS NOTE Legal hold: LPS Client on involuntary status for GD Report received from AXEL Price with use of SBAR Why are they here: Patient had been discharged previously with follow up at [facility] Team. Upon assessment by the [facility], it was determined patient was not able to obtain, food, long term, or clothing and a 5150 for GD was written. Patient returned within hours of discharge. At time of return patient denied any symptoms related to his mental illness diagnosis of Schizophrenia. He continues to present with cognitive impairment which impedes his ability to care of himself, and requires multiple supports and external structures. Assessment What has happened this shift: Asleep at change of shift, awakened for meds and then came to breakfast. Depressed mood, blunted affect with some brightening today at times. Denies SI and denies hallucinations at this time. Asked when his "pizza libertarian" was going to be, as Dr. Katz "promised" him a pizza libertarian today. Dr. Katz was contacted and it is scheduled for 1500. The patient was smiling and uplifted by this and is looking forward to this event. Also is hoping to have new activities to do as he awaits placement. med compliant and cooperative. S/I, H/I: Denies A/VH: Denies Sleep: napped ADL's: Independent Group attendance: No Were meds taken: Yes Any med S/E: None noted or reported. Mental Status Exam Appearance: Clean and neat Eye contact: Good Behavior: Calm, isolates at times Speech: Clear, soft Mood: Depressed Affect: blunted Thought process: Linear Thought Content: feelings of emptiness, having nothing to do Cognition: Alert Insight: fair Judgment: good Interventions PRN's used: None Therapeutic interventions: 1:1 assessment, therapeutic conversation, active listening, maintained a safe and therapeutic environment, monitored behaviors and need for intervention, encouragement to perform personal hygiene, Q 15 min safety checks. Restraints/seclusion/emergency medication: N/A Justification of Continued Inpatient Treatment: Pt. continues to require a safe and supportive environment, and remains GD r/t mental health. He is LPS conserved and awaiting IMD placement.
[2020-02-02 20:00] VITALS: BP 127/70
[2020-02-02] MEDS: LORazepam 1 MG tablet PO PRN (22:03)
[2020-02-02] MEDS: atorvastatin 10mg tablet PO SCH (22:03)
--- NOTE | 2020-02-03 05:41 | NUR ---
NURSING PROGRESS NOTE Legal hold: LPS Client on involuntary status for GD Report received from KERMIT Fox with use of SBAR Why are they here: Patient had been discharged previously with follow up at [facility] Team. Upon assessment by the [facility], it was determined patient was not able to obtain, food, custodial, or clothing and a 5150 for GD was written. Patient returned within hours of discharge. At time of return patient denied any symptoms related to his mental illness diagnosis of Schizophrenia. He continues to present with cognitive impairment which impedes his ability to care of himself, and requires multiple supports and external structures. Assessment What has happened this shift: Patient watching TV with peers in the community room at the beginning of shift. Pleasant and cooperative with care; compliant with medication. PRN Ativan provided for anxiousness upon request with positive effect. Denies SI, HI, A/VH. Patient continues to appear depressed but with brightening this shift. He was happy to report his pizza republican with a big smile. He joked throughout the shift with sign writer letterer or painter. S/I, H/I: Denies A/VH: Denies Sleep: Refer to sleep assessment ADL's: Independent Group attendance: No Were meds taken: Yes Any med S/E: None noted or reported. Mental Status Exam Appearance: Neat, clean and appropriate attire Eye contact: Good Behavior: Calm, isolates at times Speech: Clear, soft, regular rate/rhythm Mood: Depressed with brightening Affect: Congruent Thought process: Linear Thought Content: Wants to discharge Cognition: Intact Insight: fair Judgment: good Interventions PRN's used: Ativan Therapeutic interventions: 1:1 assessment, therapeutic conversation, active listening, maintained a safe and therapeutic environment, monitored behaviors and need for intervention, encouragement to perform personal hygiene, Q 15 min safety checks. Restraints/seclusion/emergency medication: N/A Justification of Continued Inpatient Treatment: Pt. continues to require a safe and supportive environment, and remains GD r/t mental health. He is LPS conserved and awaiting IMD placement.
[2020-02-03 08:00] VITALS: BP 116/54
[2020-02-03] MEDS: nicotine 7mg patch - 24hr TD SCH (08:16)
[2020-02-03] MEDS: atomoxetine 40 MG capsule PO SCH (08:17)
[2020-02-03] MEDS: naproxen 500mg tablet PO SCH ×2 (08:17→17:59)
[2020-02-03] MEDS: pantoprazole 40mg Tablet.DR PO SCH (08:17)
[2020-02-03] MEDS: docusate sod 100mg capsule PO SCH ×2 (08:17→20:30)
[2020-02-03] MEDS: benztropine 1mg tablet PO SCH ×2 (08:17→20:30)
[2020-02-03] MEDS: sennosides 8.6mg tablet PO SCH ×2 (08:17→20:30)
[2020-02-03] MEDS: NICOTINE POLACRILEX 2 MG LOZENGE BC PRN (08:21)
[2020-02-03] MEDS: clozapine 100mg tablet PO SCH ×2 (14:20→20:30)
[2020-02-03] MEDS: clozapine 25mg tablet PO SCH (14:20)
--- NOTE | 2020-02-03 17:37 | NUR ---
NURSING PROGRESS NOTE Legal hold: LPS Client on involuntary status for GD Report received from AXEL Price with use of SBAR Why are they here: Patient had been discharged previously with follow up at [facility] Team. [facility], it was determined patient was not able to obtain, food, nursing home, or clothing and a 5150 for GD was written. Patient returned within hours of discharge. At time of return patient denied any symptoms related to his mental illness diagnosis of Schizophrenia. He continues to present with cognitive impairment which impedes his ability to care of himself, and requires multiple supports and external structures. Assessment What has happened this shift: Received patient sleeping at shift change. Patient awakens for breakfast and medications, then goes back to bed per his usual routine. Patient does get up and watches t.v. In rec room with peers. Patient reports that he is still #6 on waiting list for discharge. S/I, H/I: Denies A/VH: Denies Sleep: 3.25 hrs NOC., napped ADL's: Independent Group attendance: No Were meds taken: Yes Any med S/E: None noted or reported. Mental Status Exam Appearance: Clean and neat Eye contact: Good Behavior: Calm and cooperative, isolates at times Speech: Clear, soft, minimal Mood: Depressed Affect: blunted Thought process: Linear Thought Content: Placement. Cognition: Alert & oriented x 4. Insight: fair Judgment: good Interventions PRN's used: Nicotine Lozenge Therapeutic interventions: 1:1 assessment, therapeutic conversation, active listening, maintained a safe and therapeutic environment, monitored behaviors and need for intervention, encouragement to perform personal hygiene, Q 15 min safety checks. Restraints/seclusion/emergency medication: N/A Justification of Continued Inpatient Treatment: Pt. continues to require a safe and supportive environment, and remains GD r/t mental health. He is LPS conserved and awaiting IMD placement.
[2020-02-03 19:57] VITALS: BP 120/78
[2020-02-03] MEDS: atorvastatin 10mg tablet PO SCH (20:30)
[2020-02-03] MEDS: LORazepam 1 MG tablet PO PRN (20:36)
[2020-02-04] MEDS: NICOTINE POLACRILEX 2 MG LOZENGE BC PRN ×3 (00:35→20:48)
--- NOTE | 2020-02-04 04:11 | NUR ---
NURSING PROGRESS NOTE Legal hold: LPS Client on involuntary status for GD Report received from KERMIT Fox with use of SBAR Why are they here: Patient had been discharged previously with follow up at [facility] Team. Upon assessment by the [facility], it was determined patient was not able to obtain, food, longterm, or clothing and a 5150 for GD was written. Patient returned within hours of discharge. At time of return patient denied any symptoms related to his mental illness diagnosis of Schizophrenia. He continues to present with cognitive impairment which impedes his ability to care of himself, and requires multiple supports and external structures. Assessment What has happened this shift: Patient in his room at the beginning of shift. He was seen by Dr. Adam, hospitalist this shift. Prior to hospitalist checkup he began watching TV in group room. Remains pleasant and cooperative with care; compliant with all medication. PRN Ativan provided for anxiousness with positive effect and PRN Nicotine lozenge provided upon request. He jokes throughout the shift with staff. Denies all mental health symptoms. Reports, "I'm OK," with a smile. S/I, H/I: Denies A/VH: Denies Sleep: Refer to sleep assessment ADL's: Independent Group attendance: No Were meds taken: Yes Any med S/E: None noted or reported. Mental Status Exam Appearance: Neat, clean and appropriate attire Eye contact: Good Behavior: Calm, isolates at times Speech: Clear, soft, regular rate/rhythm Mood: Depressed with brightening Affect: Congruent Thought process: Linear Thought Content: Wants to discharge Cognition: Intact Insight: fair Judgment: good Interventions PRN's used: Ativan and Nicotine lozenge Therapeutic interventions: 1:1 assessment, therapeutic conversation, active listening, maintained a safe and therapeutic environment, monitored behaviors and need for intervention, encouragement to perform personal hygiene, Q 15 min safety checks. Restraints/seclusion/emergency medication: N/A Justification of Continued Inpatient Treatment: Pt. continues to require a safe and supportive environment, and remains GD r/t mental health. He is LPS conserved and awaiting IMD placement.
[2020-02-04 07:52] VITALS: BP 107/60
[2020-02-04] MEDS: atomoxetine 40 MG capsule PO SCH (08:21)
[2020-02-04] MEDS: docusate sod 100mg capsule PO SCH ×2 (08:21→20:36)
[2020-02-04] MEDS: naproxen 500mg tablet PO SCH ×2 (08:22→17:54)
[2020-02-04] MEDS: nicotine 7mg patch - 24hr TD SCH (08:22)
[2020-02-04] MEDS: sennosides 8.6mg tablet PO SCH ×2 (08:22→20:36)
[2020-02-04] MEDS: pantoprazole 40mg Tablet.DR PO SCH (08:22)
[2020-02-04] MEDS: benztropine 1mg tablet PO SCH ×2 (08:22→20:36)
[2020-02-04] MEDS: clozapine 100mg tablet PO SCH ×2 (13:45→20:36)
[2020-02-04] MEDS: clozapine 25mg tablet PO SCH (13:45)
--- NOTE | 2020-02-04 16:46 | NUR ---
NURSING PROGRESS NOTE Legal hold: LPS Client on involuntary status for GD Report received from AXEL Price with use of SBAR Why are they here: Patient had been discharged previously with follow up at [facility] Team. Upon assessment by the [facility] [place], it was determined patient was not able to obtain, food, detention, or clothing and a 5150 for GD was written. Patient returned within hours of discharge. At time of return patient denied any symptoms related to his mental illness diagnosis of Schizophrenia. He continues to present with cognitive impairment which impedes his ability to care of himself, and requires multiple supports and external structures. Assessment What has happened this shift: Received pt sleeping in bed at shift change. Pt. Attends all meals in the dining room. Takes medications as prescribed. Patient watches t.v. In rec room. Pt. Reports that with staff assistance, he has found his family and has sent a letter to them with hopes of reuniting. Pt. Reports that he misses holidays with his family. He would really like to move nearby to his family, get a job, his own apartment. Pt. Smiling widely as he is talking about BBQs with his family. S/I, H/I: Denies A/VH: Denies Sleep: Napped. ADL's: Independent Group attendance: Movie group. Were meds taken: Yes Any med S/E: None noted or reported. Mental Status Exam Appearance: Freshly showered in personal attire. Eye contact: Good Behavior: Calm and cooperative. Speech: Clear, soft, minimal Mood: Depressed with afternoon brightening. Affect: blunted Thought process: Linear Thought Content: Finding family. Cognition: Alert & oriented x 4. Insight: Good. Judgment: good Interventions PRN's used: Nicotine Lozenge Therapeutic interventions: 1:1 assessment, therapeutic conversation, active listening, maintained a safe and therapeutic environment, monitored behaviors and need for intervention, encouragement to perform personal hygiene, Q 15 min safety checks. Restraints/seclusion/emergency medication: N/A Justification of Continued Inpatient Treatment: Pt. continues to require a safe and supportive environment, and remains GD r/t mental health. He is LPS conserved and awaiting IMD placement.
[2020-02-04 19:50] VITALS: BP 115/70
[2020-02-04] MEDS: atorvastatin 10mg tablet PO SCH (20:36)
[2020-02-04] MEDS: LORazepam 1 MG tablet PO PRN (20:47)
--- NOTE | 2020-02-05 03:58 | NUR ---
NURSING PROGRESS NOTE Legal hold: LPS Client on involuntary status for GD Report received from KERMIT Fox with use of SBAR Why are they here: Patient had been discharged previously with follow up at [facility] Team. Upon assessment by the [facility], it was determined patient was not able to obtain, food, chcf, or clothing and a 5150 for GD was written. Patient returned within hours of discharge. At time of return patient denied any symptoms related to his mental illness diagnosis of Schizophrenia. He continues to present with cognitive impairment which impedes his ability to care of himself, and requires multiple supports and external structures. Assessment What has happened this shift: Patient sitting in community room watching TV at the beginning of shift. He was over heard laughing while watching comedy shows and with a big smile began explaining the show. Pleasant and cooperative with all care; compliant with all medication. PRN Ativan and Nicotine lozenge provided upon request with positive effect. Denies SI, HI, A/VH and no internal stimuli observed. S/I, H/I: Denies A/VH: Denies Sleep: Refer to sleep assessment ADL's: Independent Group attendance: No Were meds taken: Yes Any med S/E: None noted or reported. Mental Status Exam Appearance: Neat, clean and appropriate attire Eye contact: Good Behavior: Calm, isolates at times Speech: Clear, soft, regular rate/rhythm Mood: "OK" Affect: Depressed Thought process: Linear Thought Content: Laughing about show he is watching Cognition: Intact Insight: fair Judgment: good Interventions PRN's used: Ativan and Nicotine lozenge Therapeutic interventions: 1:1 assessment, therapeutic conversation, active listening, maintained a safe and therapeutic environment, monitored behaviors and need for intervention, encouragement to perform personal hygiene, Q 15 min safety checks. Restraints/seclusion/emergency medication: N/A Justification of Continued Inpatient Treatment: Pt. continues to require a safe and supportive environment, and remains GD r/t mental health. He is LPS conserved and awaiting IMD placement.
[2020-02-05 08:00] VITALS: BP 113/50
[2020-02-05] MEDS: nicotine 7mg patch - 24hr TD SCH (08:02)
[2020-02-05] MEDS: naproxen 500mg tablet PO SCH ×2 (08:02→17:52)
[2020-02-05] MEDS: atomoxetine 40 MG capsule PO SCH (08:02)
[2020-02-05] MEDS: benztropine 1mg tablet PO SCH ×2 (08:02→20:51)
[2020-02-05] MEDS: docusate sod 100mg capsule PO SCH ×2 (08:02→20:51)
[2020-02-05] MEDS: sennosides 8.6mg tablet PO SCH ×2 (08:02→20:51)
[2020-02-05] MEDS: pantoprazole 40mg Tablet.DR PO SCH (08:03)
[2020-02-05] MEDS: clozapine 25mg tablet PO SCH (14:15)
[2020-02-05] MEDS: clozapine 100mg tablet PO SCH ×2 (14:15→20:51)
[2020-02-05] MEDS: NICOTINE POLACRILEX 2 MG LOZENGE BC PRN ×2 (14:15→22:06)
--- NOTE | 2020-02-05 15:38 | NUR ---
NURSING PROGRESS NOTE Legal hold: LPS Client on involuntary status for GD Report received from AXEL Price with use of SBAR Why are they here: Patient had been discharged previously with follow up at [facility] Team. Upon assessment by the [facility], it was determined patient was not able to obtain, food, residential, or clothing and a 5150 for GD was written. Patient returned within hours of discharge. At time of return patient denied any symptoms related to his mental illness diagnosis of Schizophrenia. He continues to present with cognitive impairment which impedes his ability to care of himself, and requires multiple supports and external structures. Assessment What has happened this shift: Patient was asleep at change of shift and up for breakfast. Patient up and smiling at breakfast. Patient denies suicidal/homicidal ideation. Patient denies audio/visual hallucinations. Patient is happy and never complaint. Patient social and watching T.V. RN noticed patient squinting his eyes while watching T.V. Patient stated he needs glasses but his conservator has not scheduled him a reel slitter appointment to get his eye checked. Rn to check tomorrow with conservator. S/I, H/I: Denies A/VH: Denies Sleep: Short naps ADL's: Independent Group attendance: No Were meds taken: Yes Any med S/E: None noted or reported. Mental Status Exam Appearance: Patient in his own clothes, clean and neat. Eye contact: Good Behavior: Calm and cooperative. Speech: Clear, soft, minimal Mood: Pleasant Affect: normal Thought process: Linear Thought Content: getting eye glasses Cognition: Alert & oriented x 4. Insight: Good. Judgment: good Interventions PRN's used: Nicotine Lozenge Therapeutic interventions: 1:1 assessment, therapeutic conversation, active listening, maintained a safe and therapeutic environment, monitored behaviors and need for intervention, encouragement to perform personal hygiene, Q 15 min safety checks. Restraints/seclusion/emergency medication: N/A Justification of Continued Inpatient Treatment: Pt. continues to require a safe and supportive environment, and remains GD r/t mental health. He is LPS conserved and awaiting IMD placement.
[2020-02-05 20:44] VITALS: BP 136/91
[2020-02-05] MEDS: LORazepam 1 MG tablet PO PRN (20:50)
[2020-02-05] MEDS: atorvastatin 10mg tablet PO SCH (20:50)
--- NOTE | 2020-02-06 05:12 | NUR ---
NURSING PROGRESS NOTE Legal hold: LPS Client on involuntary status for GD Report received from KERMIT Fox with use of SBAR Why are they here: Patient had been discharged previously with follow up at [facility]. [place] [facility] patient was not able to obtain, food, detention, or clothing and a 5150 for GD was written. Patient returned within hours of discharge. At time of return patient denied any symptoms related to his mental illness diagnosis of Schizophrenia. He continues to present with cognitive impairment which impedes his ability to care of himself, and requires multiple supports and external structures. Assessment What has happened this shift: Patient observed watching TV at the beginning of shift. Pleasant and cooperative with care; compliant with medication. Patient HR elevated 135. PRN Ativan provided and Nicotine lozenge per patient request with positive effect. HR reassess 119. Patient continue to make jokes and engage with staff. Denies SI, HI, A/VH. Showered this shift. CBC/DIFF ordered for AM shift. S/I, H/I: Denies A/VH: Denies Sleep: Refer to sleep assessment ADL's: Independent Group attendance: No Were meds taken: Yes Any med S/E: Patient on Clozaril and HR elevated. Mental Status Exam Appearance: Neat, showered and appropriate attire Eye contact: Good Behavior: Calm, isolates at times Speech: Clear, soft, regular rate/rhythm Mood: "Good" Affect: Animated Thought process: Linear Thought Content: Joking, talking about shows/movies Cognition: Intact Insight: fair Judgment: good Interventions PRN's used: Ativan and Nicotine lozenge Therapeutic interventions: 1:1 assessment, therapeutic conversation, active listening, maintained a safe and therapeutic environment, monitored behaviors and need for intervention, encouragement to perform personal hygiene, Q 15 min safety checks. Restraints/seclusion/emergency medication: N/A Justification of Continued Inpatient Treatment: Pt. continues to require a safe and supportive environment, and remains GD r/t mental health. He is LPS conserved and awaiting IMD placement.
[2020-02-06 08:00] VITALS: BP 114/71
[2020-02-06] MEDS: benztropine 1mg tablet PO SCH ×2 (08:21→20:19)
[2020-02-06] MEDS: sennosides 8.6mg tablet PO SCH ×2 (08:21→20:19)
[2020-02-06] MEDS: nicotine 7mg patch - 24hr TD SCH (08:21)
[2020-02-06] MEDS: docusate sod 100mg capsule PO SCH ×2 (08:21→20:19)
[2020-02-06] MEDS: pantoprazole 40mg Tablet.DR PO SCH (08:22)
[2020-02-06] MEDS: naproxen 500mg tablet PO SCH ×2 (08:22→18:03)
[2020-02-06] MEDS: atomoxetine 40 MG capsule PO SCH (08:22)
[2020-02-06] MEDS: clozapine 100mg tablet PO SCH ×2 (13:31→20:19)
[2020-02-06 13:32] LABS: BASOPHILS % (AUTO) 0.4 % (0-1); EOSINOPHILS # (AUTO) 0.2 X10'3 (0-0.9); EOSINOPHILS % (AUTO) 2.4 % (0-6); HEMATOCRIT 44.5 % (42.0-52.0); HEMOGLOBIN 14.8 g/dl (14.0-17.9); LYMPHOCYTES % (AUTO) 23.7 % (21-51); MEAN CORPUSCULAR HEMOGLOBIN 27.9 PG (27.0-31.0); MEAN CORPUSCULAR HGB CONC 33.3 g/dL (33.0-36.5); MEAN CORPUSCULAR VOLUME 83.6 FL (78-98); MEAN PLATELET VOLUME 8.2 FL (7.4-10.4); MONOCYTES % (AUTO) 12.5 % (2-12); NEUTROPHILS # (AUTO) 5.1 X10'3 (1.8-7.7); PLATELET COUNT 209 X10'3 (140-440); RED BLOOD COUNT 5.32 X10'6 (4.70-6.10); RED CELL DISTRIBUTION WIDTH 14.3 % (11.5-14.5); WHITE BLOOD COUNT 8.3 X10'3 (4.5-11.0)
[2020-02-06] MEDS: clozapine 25mg tablet PO SCH (13:32)
[2020-02-06] MEDS: propranolol 10mg tablet PO SCH ×2 (13:33→20:19)
--- NOTE | 2020-02-06 14:24 | NUR ---
NURSING PROGRESS NOTE Legal hold: LPS Client on involuntary status for GD Report received from AXEL Price with use of SBAR Why are they here: Patient had been discharged previously with follow up at [facility] Team. Upon assessment by the [facility], it was determined patient was not able to obtain, food, senior living, or clothing and a 5150 for GD was written. Patient returned within hours of discharge. At time of return patient denied any symptoms related to his mental illness diagnosis of Schizophrenia. He continues to present with cognitive impairment which impedes his ability to care of himself, and requires multiple supports and external structures. Assessment What has happened this shift: What has happened this shift: Patient was asleep at change of shift and up for breakfast. Patient is pleasant and cooperative. Patient denies suicidal/homicidal ideation. Patient denies a/v hallucinations. Patient received an old pair of glasses that seems to help his vision, though somethings are blurry. Patient happy to use them. Patient went outside today but did not go to group. Patient in pending IMD placement. S/I, H/I: Denies A/VH: Denies Sleep: Short naps ADL's: Independent Group attendance: No Were meds taken: Yes Any med S/E: None noted or reported. Mental Status Exam Appearance: Patient in his own clothes, clean and neat. Eye contact: Good Behavior: Calm and cooperative. Speech: Clear, soft, minimal Mood: Pleasant Affect: normal Thought process: Linear Thought Content: getting some eye glasses Cognition: Alert & oriented x 4. Insight: Good. Judgment: good Interventions PRN's used: Therapeutic interventions: 1:1 assessment, therapeutic conversation, active listening, maintained a safe and therapeutic environment, monitored behaviors and need for intervention, encouragement to perform personal hygiene, Q 15 min safety checks. Restraints/seclusion/emergency medication: N/A Justification of Continued Inpatient Treatment: Pt. continues to require a safe and supportive environment, and remains GD r/t mental health. He is LPS conserved and awaiting IMD placement.
[2020-02-06 20:00] VITALS: BP 132/80
[2020-02-06] MEDS: atorvastatin 10mg tablet PO SCH (20:19)
[2020-02-06] MEDS: LORazepam 1 MG tablet PO PRN (22:43)
--- NOTE | 2020-02-07 04:20 | NUR ---
NURSING PROGRESS NOTE Legal hold: LPS Client on involuntary status for GD Report received from KERMIT Fox with use of SBAR Why are they here: Patient had been discharged previously with follow up at [facility] Team. Upon assessment by the [facility], it was determined patient was not able to obtain, food, halfway, or clothing and a 5150 for GD was written. Patient returned within hours of discharge. At time of return patient denied any symptoms related to his mental illness diagnosis of Schizophrenia. He continues to present with cognitive impairment which impedes his ability to care of himself, and requires multiple supports and external structures. Assessment What has happened this shift: Patient in the community room watching tv at the beginning of shift. Pleasant and cooperative; compliant with medication. PRN Ativan provided upon request with positive effect. He reported "I'm seeing shit" and explained people aging quickly and he was observed talking as if a person were with him. He denies SI and HI. Patient expressed excitement for his new glasses and stated, "I can see," with a big smile. Patient also reports he is using the bike more and counting his steps with watch. He participated in HS snack. Does not appear to be having difficulty sleeping. S/I, H/I: Denies A/VH: +A/VH Sleep: Refer to sleep assessment ADL's: Independent Group attendance: No Were meds taken: Yes Any med S/E: None observed or reported this shift. Mental Status Exam Appearance: Neat, clean and appropriate personal attire Eye contact: Good Behavior: Pleasant and cooperative Speech: Clear, soft, regular rate/rhythm Mood: Euthymic Affect: Congruent Thought process: Linear Thought Content: New glasses Cognition: Intact Insight: fair Judgment: good Interventions PRN's used: Ativan Therapeutic interventions: 1:1 assessment, therapeutic conversation, active listening, maintained a safe and therapeutic environment, monitored behaviors and need for intervention, encouragement to perform personal hygiene, Q 15 min safety checks. Restraints/seclusion/emergency medication: N/A Justification of Continued Inpatient Treatment: Pt. continues to require a safe and supportive environment, and remains GD r/t mental health. He is LPS conserved and awaiting IMD placement.
[2020-02-07 08:00] VITALS: BP 89/47
[2020-02-07] MEDS: propranolol 10mg tablet PO SCH ×3 (08:00→20:53)
[2020-02-07] MEDS: pantoprazole 40mg Tablet.DR PO SCH (08:18)
[2020-02-07] MEDS: benztropine 1mg tablet PO SCH ×2 (08:18→20:54)
[2020-02-07] MEDS: atomoxetine 40 MG capsule PO SCH (08:18)
[2020-02-07] MEDS: docusate sod 100mg capsule PO SCH ×2 (08:18→20:54)
[2020-02-07] MEDS: sennosides 8.6mg tablet PO SCH ×2 (08:18→20:52)
[2020-02-07] MEDS: naproxen 500mg tablet PO SCH ×2 (08:18→17:08)
[2020-02-07] MEDS: nicotine 7mg patch - 24hr TD SCH (08:18)
[2020-02-07] MEDS: clozapine 25mg tablet PO SCH (13:56)
[2020-02-07] MEDS: clozapine 100mg tablet PO SCH ×2 (13:56→20:51)
[2020-02-07 13:57] VITALS: BP 121/81
--- NOTE | 2020-02-07 15:38 | NUR ---
NURSING PROGRESS NOTE Legal hold: LPS Client on involuntary status for GD Report received from AXEL Price with use of SBAR Why are they here: Patient had been discharged previously with follow up at [facility] Team. Upon assessment by the [facility], it was determined patient was not able to obtain, food, fpc, or clothing and a 5150 for GD was written. Patient returned within hours of discharge. At time of return patient denied any symptoms related to his mental illness diagnosis of Schizophrenia. He continues to present with cognitive impairment which impedes his ability to care of himself, and requires multiple supports and external structures. Assessment What has happened this shift: Patient was asleep at change of shift and up for breakfast. Patient is pleasant and cooperative. Patient denies suicidal/homicidal ideation. Patient denies a/v hallucinations. Patient is smiling and social with staff and peers. Patient is feeling a little down because he has not been placed. RN spoke to Paola Omalley, services manager, so she would speak to the conservator about getting patient to an processing technician and possibly a get a day pass to go out to lunch. S/I, H/I: Denies A/VH: Denies Sleep: Short naps ADL's: Independent Group attendance: No Were meds taken: Yes Any med S/E: None noted or reported. Mental Status Exam Appearance: Patient in his own clothes, clean and neat. Eye contact: Good Behavior: Calm and cooperative. Speech: Clear, soft, minimal Mood: Pleasant Affect: normal Thought process: Linear Thought Content: Cognition: Alert & oriented x 4. Insight: Good. Judgment: good Interventions PRN's used: Therapeutic interventions: 1:1 assessment, therapeutic conversation, active listening, maintained a safe and therapeutic environment, monitored behaviors and need for intervention, encouragement to perform personal hygiene, Q 15 min safety checks. Restraints/seclusion/emergency medication: N/A Justification of Continued Inpatient Treatment: Pt. continues to require a safe and supportive environment, and remains GD r/t mental health. He is LPS conserved and awaiting IMD placement.
[2020-02-07 20:00] VITALS: BP 127/77
[2020-02-07] MEDS: LORazepam 1 MG tablet PO PRN (20:53)
[2020-02-07] MEDS: atorvastatin 10mg tablet PO SCH (20:53)
--- NOTE | 2020-02-08 01:25 | NUR ---
NURSING PROGRESS NOTE Legal hold: LPS conserved Client on involuntary status for GD Report received from LUIS FERNANDO Nielson with use of SBAR Why are they here: Patient had been discharged previously with follow up at [facility] Team. Upon assessment by the [facility], it was determined patient was not able to obtain, food, alf, or clothing and a 5150 for GD was written. Patient returned within hours of discharge. At time of return patient denied any symptoms related to his mental illness diagnosis of Schizophrenia. He continues to present with cognitive impairment which impedes his ability to care of himself, and requires multiple supports and external structures. Assessment What has happened this shift: PT is sitting in red room socializing with peers.He smiles and makes good eye contact. He is cooperative with 1:1 assessment and medication compliant. He requests an ativan just before bed, which is given to him. S/I, H/I: Denies A/VH: internal preoccupation at times Sleep:see sleep assessment notation ADL's: Independent Group attendance: No Were Meds taken: Yes Any med S/E: No Mental Status Exam Appearance: clean Eye contact: Fair Behavior:paces, smiles, watches TV Speech: Normal Mood: Euthymic Affect: content Thought process: Linear Thought Content: circumstantial Cognition: Alert Insight: Poor Judgment: Poor Interventions PRN's used: ativan Therapeutic interventions: AM assessment; prompts to shower and attend groups and get up for meals; medication administration/education/monitoring, Q 15 min safety checks. Restraints/seclusion/emergency medication: N/A Justification of Continued Inpatient Treatment: Pt is gravely disabled, he is LPS conserved, he continues to need medication adjustment and monitoring and a safe and supportive environment
[2020-02-08] MEDS: naproxen 500mg tablet PO SCH ×2 (08:09→17:41)
[2020-02-08] MEDS: docusate sod 100mg capsule PO SCH ×2 (08:10→20:43)
[2020-02-08] MEDS: propranolol 10mg tablet PO SCH ×3 (08:10→20:44)
[2020-02-08] MEDS: benztropine 1mg tablet PO SCH ×2 (08:10→20:44)
[2020-02-08] MEDS: sennosides 8.6mg tablet PO SCH ×2 (08:10→20:43)
[2020-02-08] MEDS: nicotine 7mg patch - 24hr TD SCH (08:12)
[2020-02-08] MEDS: atomoxetine 40 MG capsule PO SCH (08:13)
[2020-02-08] MEDS: pantoprazole 40mg Tablet.DR PO SCH (08:16)
[2020-02-08 08:49] VITALS: BP 126/62
[2020-02-08 13:25] VITALS: BP 136/77
[2020-02-08] MEDS: clozapine 25mg tablet PO SCH (13:28)
[2020-02-08] MEDS: clozapine 100mg tablet PO SCH ×2 (13:28→20:43)
--- NOTE | 2020-02-08 17:54 | NUR ---
Placement Received t/c from JUDI's office, Dali Winter requesting update VIKAS Rinaldi faxed updated notes to JUDI's office Shirin Carlos ROD HANGER Addendum: 02/08/20 at 1755 by Shirin BEAN Amended: Links added.
--- NOTE | 2020-02-08 18:08 | NUR ---
NURSING PROGRESS NOTE Legal hold: LPS Client on involuntary status for GD Report received from Yolanda GOULD with use of SBAR Why are they here: Patient had been discharged previously with follow up at [facility] Team. Upon assessment by the [facility] it was determined patient was not able to obtain, food, group home, or clothing and a 5150 for GD was written. Patient returned within hours of discharge. At time of return patient denied any symptoms related to his mental illness diagnosis of Schizophrenia. He continues to present with cognitive impairment which impedes his ability to care of himself, and requires multiple supports and external structures. Assessment What has happened this shift: Pt was up for breakfast, returned for a nap afterwards. Pt is pleasant and cooperative, socializes with staff and peers. Pt did not appear to be responding to internal stimuli. Pt has orders for a CBC/Diff on 02/18/20. S/I, H/I: Pt denies A/VH: Pt denies Sleep: Pt slept 4.5 hours last night per noc shift report, pt naps during the day. ADL's: Independent Group attendance: No Were meds taken: Yes Any med S/E: None noted or reported. Mental Status Exam Appearance: Tall, large man with acne wearing a baseball cap, large fake luly earrings, black sweats and t-shirt, & high top sneakers. Eye contact: Good Behavior: Calm and cooperative. Speech: Clear, soft, minimal Mood: Pleasant Affect: Affable Thought process: Linear Thought Content: Wants to be discharged Cognition: Alert & oriented x 4. Insight: Fair Judgment: Fair Interventions PRN's used: None Therapeutic interventions: 1:1 assessment, therapeutic conversation, active listening, maintained a safe and therapeutic environment, medication administration/education/monitoring, Q 15 min safety checks. Restraints/seclusion/emergency medication: N/A Justification of Continued Inpatient Treatment: Pt. continues to require a safe and supportive environment, and remains GD r/t mental health. He is LPS conserved and awaiting IMD placement.
[2020-02-08 20:00] VITALS: BP 100/60
[2020-02-08] MEDS: atorvastatin 10mg tablet PO SCH (20:44)
[2020-02-08] MEDS: LORazepam 1 MG tablet PO PRN (23:41)
--- NOTE | 2020-02-09 04:48 | NUR ---
NURSING PROGRESS NOTE Legal hold: LPS Client on involuntary status for GD Report received from LUIS FERNANDO Peraza with use of SBAR Why are they here: Patient had been discharged previously with follow up at [facility] Team. Upon assessment by the [facility], it was determined patient was not able to obtain, food, fpc, or clothing and a 5150 for GD was written. Patient returned within hours of discharge. At time of return patient denied any symptoms related to his mental illness diagnosis of Schizophrenia. He continues to present with cognitive impairment which impedes his ability to care of himself, and requires multiple supports and external structures. Assessment What has happened this shift: Patient is ambulatory and well oriented. He smiles and visits other patients and staff on the unit. The patient denies S/I or H/I. Patient denies S/I, H/I, or any distress. S/I, H/I: Pt denies. A/VH: Pt denies. Sleep: Sleeping quietly late in shift. ADL's: Independent. Group attendance: N/A Were meds taken: Yes, medication compliant. Any med S/E: None noted or reported. Mental Status Exam Appearance: Well dressed and clean appearance. Eye contact: Good. Behavior: Calm and cooperative. Speech: Clear, soft, regular rhythm and rate. Mood: Pleasant. Affect: Normal. Thought process: Linear. Thought Content: About future placement but I'd be happy to stay. Cognition: Alert & oriented x 4. Insight: Fair. Judgment: Fair. Interventions PRN's used: None. Therapeutic interventions: 1:1 assessment, therapeutic conversation, active listening, maintained a safe and therapeutic environment, medication administration/education/monitoring, Q 15 min safety checks. Restraints/seclusion/emergency medication: N/A Justification of Continued Inpatient Treatment: Pt. continues to require a safe and supportive environment, and remains GD r/t mental health. He is LPS conserved and awaiting IMD placement.
--- NOTE | 2020-02-09 07:09 | NUR ---
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 at [facility]. This is per Alisa at [facility] office.
[2020-02-09 08:00] VITALS: BP 137/72
[2020-02-09] MEDS: naproxen 500mg tablet PO SCH ×2 (08:14→17:31)
[2020-02-09] MEDS: pantoprazole 40mg Tablet.DR PO SCH (08:14)
[2020-02-09] MEDS: atomoxetine 40 MG capsule PO SCH (08:14)
[2020-02-09] MEDS: benztropine 1mg tablet PO SCH ×2 (08:14→21:54)
[2020-02-09] MEDS: sennosides 8.6mg tablet PO SCH ×2 (08:15→21:52)
[2020-02-09] MEDS: docusate sod 100mg capsule PO SCH ×2 (08:15→21:53)
[2020-02-09] MEDS: propranolol 10mg tablet PO SCH ×3 (08:15→21:53)
[2020-02-09] MEDS: nicotine 7mg patch - 24hr TD SCH (08:54)
[2020-02-09 12:28] VITALS: BP 143/94
[2020-02-09] MEDS: clozapine 100mg tablet PO SCH ×2 (13:00→21:53)
[2020-02-09] MEDS: clozapine 25mg tablet PO SCH (13:00)
--- NOTE | 2020-02-09 16:24 | NUR ---
NURSING PROGRESS NOTE Legal hold: LPS Client on involuntary status for GD Report received from Ifrah GOULD with use of SBAR Why are they here: Patient had been discharged previously with follow up at [facility] Team. [place] [facility] was determined patient was not able to obtain, food, [facility], or clothing and a 5150 for GD was written. Patient returned within hours of discharge. At time of return patient denied any symptoms related to his mental illness diagnosis of Schizophrenia. He continues to present with cognitive impairment which impedes his ability to care of himself, and requires multiple supports and external structures. Assessment What has happened this shift: Pt slept in this morning, was the last patient to come and eat breakfast after everyone else was done. Pt observed walking in the hallway in bare feet. Provided some nonskid socks. 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 Pt was pleasant and cooperative with care and did not appear to be responding to internal stimuli. Pt asked for a sandwich during snack. Discussed preventing further weight gain and healthy food choices. Pt smiled and promised he would get on the "exercise bike" after dinner. S/I, H/I: Pt denies A/VH: Pt denies Sleep: Pt slept 5 hours last night per noc shift report, pt naps during the day. ADL's: Independent Group attendance: No Were meds taken: Yes Any med S/E: None noted or reported. Mental Status Exam Appearance: Tall, large man with acne wearing small eye glasses, dressed in green scrub pants and a t-shirt. Eye contact: Good Behavior: Calm, cooperative, mostly isolative to self. Speech: Clear, soft, minimal Mood: Euthymic Affect: Blunted Thought process: Linear Thought Content: Focused on snacks and TV Cognition: Alert & oriented x 4. Insight: Fair Judgment: Fair Interventions PRN's used: None Therapeutic interventions: 1:1 assessment, therapeutic conversation, active listening, maintained a safe and therapeutic environment, medication administration/education/monitoring, encouragement to choose healthy snacks and use elliptical machine, Q 15 min safety checks. Restraints/seclusion/emergency medication: N/A Justification of Continued Inpatient Treatment: Pt. continues to require a safe and supportive environment, and remains GD r/t mental health. He is LPS conserved and awaiting IMD placement.
[2020-02-09 20:00] VITALS: BP 135/77
[2020-02-09] MEDS: atorvastatin 10mg tablet PO SCH (21:53)
[2020-02-09] MEDS: LORazepam 1 MG tablet PO PRN (21:53)
--- NOTE | 2020-02-10 05:08 | NUR ---
NURSING PROGRESS NOTE Legal hold: LPS Client on involuntary status for GD Report received from LUIS FERNANDO Peraza with use of SBAR Why are they here: Patient had been discharged previously with follow up at [facility] Team. Upon assessment by the [facility], it was determined patient was not able to obtain, food, longterm, or clothing and a 5150 for GD was written. Patient returned within hours of discharge. At time of return patient denied any symptoms related to his mental illness diagnosis of Schizophrenia. He continues to present with cognitive impairment which impedes his ability to care of himself, and requires multiple supports and external structures. Assessment What has happened this shift: Patient socialized to a moderate degree. He is well oriented, he denies S/I or H/I. 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 He denies S/I, H/I, or any hallucinations. Patient watches a police show on television and then retires to bed. S/I, H/I: Pt denies. A/VH: Pt denies. Sleep: Pt slept 5 hours last night per noc shift report, pt naps during the day. ADL's: Independent. Group attendance: N/A. Were meds taken: Yes, compliant with medications. Any med S/E: None noted or reported. Mental Status Exam Appearance: Clean with moderate grooming standards. Eye contact: Good. Behavior: Calm and friendly. Speech: Clear, but quiet speech./ Mood: Euthymic. Affect: Blunted Thought process: Linear. Thought Content: Getting an apartment, going to school. Cognition: Alert & oriented x 4. Insight: Fair. Judgment: Fair. Interventions PRN's used: None Therapeutic interventions: 1:1 assessment, therapeutic conversation, active listening, maintained a safe and therapeutic environment, medication administration/education/monitoring, encouragement to choose healthy snacks and use elliptical machine, Q 15 min safety checks. Restraints/seclusion/emergency medication: N/A Justification of Continued Inpatient Treatment: Pt. continues to require a safe and supportive environment, and remains GD r/t mental health. He is LPS conserved and awaiting IMD placement.
[2020-02-10 08:00] VITALS: BP 111/70
[2020-02-10] MEDS: atomoxetine 40 MG capsule PO SCH (08:13)
[2020-02-10] MEDS: sennosides 8.6mg tablet PO SCH ×2 (08:13→20:29)
[2020-02-10] MEDS: propranolol 10mg tablet PO SCH ×3 (08:14→20:29)
[2020-02-10] MEDS: benztropine 1mg tablet PO SCH ×2 (08:14→20:29)
[2020-02-10] MEDS: docusate sod 100mg capsule PO SCH ×2 (08:14→20:29)
[2020-02-10] MEDS: naproxen 500mg tablet PO SCH ×2 (08:14→17:40)
[2020-02-10] MEDS: pantoprazole 40mg Tablet.DR PO SCH (08:14)
[2020-02-10] MEDS: nicotine 7mg patch - 24hr TD SCH (08:15)
[2020-02-10] MEDS: clozapine 25mg tablet PO SCH (14:04)
[2020-02-10] MEDS: clozapine 100mg tablet PO SCH ×2 (14:04→20:32)
--- NOTE | 2020-02-10 18:00 | NUR ---
NURSING PROGRESS NOTE Legal hold: LPS Client on involuntary status for GD Report received from LUIS FERNANDO Lopez with use of SBAR Why are they here: Patient had been discharged previously with follow up at [facility] Team. Upon assessment by the [facility], it was determined patient was not able to obtain, food, correction, or clothing and a 5150 for GD was written. Patient returned within hours of discharge. At time of return patient denied any symptoms related to his mental illness diagnosis of Schizophrenia. He continues to present with cognitive impairment which impedes his ability to care of himself, and requires multiple supports and external structures. Assessment What has happened this shift: Pt bright and cheerful. He joked with staff and interacted with residents. He watches tv and took naps. He denies SI/HI/AH/VH. Talked about being excited about getting SSI and wanting an apartment. S/I, H/I: Denies. A/VH: Denies. Sleep: 5 h per sleep assessment. Nap during the day ADL's: Independent. Group attendance: No Were meds taken: Yes Any med S/E: None noted Mental Status Exam Appearance: Slightly disheveled. Wearing scrub pants and his own t shirt. Eye contact: Direct Behavior: Pleasant Speech: WNL Mood: Good Affect: Congruent to mood Thought process: Circumstantial Thought Content: Ready to leave [facility] Cognition: AxO x 4. Insight: Fair. Judgment: Fair. Interventions PRN's used: None Therapeutic interventions: 1:1 assessment, therapeutic conversation, active listening, maintained a safe and therapeutic environment, medication administration/education/monitoring, encouragement to choose healthy snacks and use elliptical machine, Q 15 min safety checks. Restraints/seclusion/emergency medication: N/A Justification of Continued Inpatient Treatment: Pt. continues to require a safe and supportive environment, and remains GD r/t mental health. He is LPS conserved and awaiting IMD placement.
[2020-02-10] MEDS: NICOTINE POLACRILEX 2 MG LOZENGE BC PRN (18:02)
[2020-02-10 20:00] VITALS: BP 124/73
[2020-02-10] MEDS: atorvastatin 10mg tablet PO SCH (20:29)
--- NOTE | 2020-02-11 04:07 | NUR ---
NURSING PROGRESS NOTE Legal hold: LPS Client on involuntary status for GD Report received from LUIS FERNANDO Peraza with use of SBAR Why are they here: Patient had been discharged previously with follow up at [facility] Team. Upon assessment by the [facility], it was determined patient was not able to obtain, food, fdc, or clothing and a 5150 for GD was written. Patient returned within hours of discharge. At time of return patient denied any symptoms related to his mental illness diagnosis of Schizophrenia. He continues to present with cognitive impairment which impedes his ability to care of himself, and requires multiple supports and external structures. Assessment What has happened this shift: Patient is social, cooperative, always smiling. Denies depression, S/I or H/I. Patient eats full meals, is medication compliant. Late night ativan was requested by the patient for mild anxiety and some problems sleeping. The patient was accommodated, he returned to sleep in a good mood. S/I, H/I: Pt denies. A/VH: Pt denies. Sleep: Will tally in am. ADL's: Independent. Group attendance: N/A. Were meds taken: Yes, compliant with medications. Any med S/E: None noted or reported. Mental Status Exam Appearance: Clean with moderate grooming standards. Eye contact: Good. Behavior: Calm and friendly. Speech: Clear, but quiet speech./ Mood: Euthymic. Affect: Blunted Thought process: Linear. Thought Content: Getting an apartment, going to school. Cognition: Alert & oriented x 4. Insight: Fair. Judgment: Fair. Interventions PRN's used: None Therapeutic interventions: 1:1 assessment, therapeutic conversation, active listening, maintained a safe and therapeutic environment, medication administration/education/monitoring, encouragement to choose healthy snacks and use elliptical machine, Q 15 min safety checks. Restraints/seclusion/emergency medication: N/A Justification of Continued Inpatient Treatment: Pt. continues to require a safe and supportive environment, and remains GD r/t mental health. He is LPS conserved and awaiting IMD placement.
[2020-02-11 07:59] VITALS: BP 106/67
[2020-02-11] MEDS: benztropine 1mg tablet PO SCH ×2 (08:10→20:00)
[2020-02-11] MEDS: naproxen 500mg tablet PO SCH ×2 (08:10→18:09)
[2020-02-11] MEDS: docusate sod 100mg capsule PO SCH ×2 (08:10→20:00)
[2020-02-11] MEDS: atomoxetine 40 MG capsule PO SCH (08:10)
[2020-02-11] MEDS: sennosides 8.6mg tablet PO SCH ×2 (08:10→20:00)
[2020-02-11] MEDS: propranolol 10mg tablet PO SCH ×3 (08:11→21:00)
[2020-02-11] MEDS: nicotine 7mg patch - 24hr TD SCH (08:11)
[2020-02-11] MEDS: pantoprazole 40mg Tablet.DR PO SCH (08:11)
[2020-02-11] MEDS: clozapine 25mg tablet PO SCH (13:19)
[2020-02-11] MEDS: clozapine 100mg tablet PO SCH ×2 (13:19→21:00)
--- NOTE | 2020-02-11 17:48 | NUR ---
NURSING PROGRESS NOTE Legal hold: LPS Client on involuntary status for GD Report received from LUIS FERNANDO Lopez with use of SBAR Why are they here: Patient had been discharged previously with follow [place] [facility]. [place] [facility] [place] was not able to obtain, food, halfway, or clothing and a 5150 for GD was written. Patient returned within hours of discharge. At time of return patient denied any symptoms related to his mental illness diagnosis of Schizophrenia. He continues to present with cognitive impairment which impedes his ability to care of himself, and requires multiple supports and external structures. Assessment What has happened this shift: Pt is pleasant and cooperative. Compliant with medication administration. Pt denies depression, anxiety, A/V H, SI, and HI. He reports he feels good. He napped during the day and was up to the group room for meals. Pt readily socialized with staff. S/I, H/I: Denies. A/VH: Denies. Sleep: Napped during the day ADL's: Independent. Group attendance: N/A Were meds taken: Yes Any med S/E: None noted or observed Mental Status Exam Appearance: Slightly disheveled. Wearing black pants and t-shirt. Eye contact: Good Behavior: Cooperative and pleasant Speech: Normal rate and rhythm Mood: Feeling good Affect: Congruent with mood Thought process: Circumstantial Thought Content: Wants candy. Cognition: AxO x 4. Insight: Fair. Judgment: Fair. Interventions PRN's used: None Therapeutic interventions: 1:1 assessment, therapeutic conversation, active listening, maintained a safe and therapeutic environment, medication administration/education/monitoring, encouragement to choose healthy snacks and use elliptical machine, Q 15 min safety checks. Restraints/seclusion/emergency medication: N/A Justification of Continued Inpatient Treatment: Pt. continues to require a safe and supportive environment, and remains GD r/t mental health. He is LPS conserved and awaiting IMD placement.
[2020-02-11 20:00] VITALS: BP 152/84
[2020-02-11] MEDS: atorvastatin 10mg tablet PO SCH (21:00)
[2020-02-11] MEDS: LORazepam 1 MG tablet PO PRN (23:18)
--- NOTE | 2020-02-12 03:41 | NUR ---
NURSING PROGRESS NOTE Legal hold: LPS Client on involuntary status for GD Report received from LUIS FERNANDO Peraza with use of SBAR Why are they here: Patient had been discharged previously with follow up at [facility] Team. Upon assessment by the [facility], it was determined patient was not able to obtain, food, intermediate, or clothing and a 5150 for GD was written. Patient returned within hours of discharge. At time of return patient denied any symptoms related to his mental illness diagnosis of Schizophrenia. He continues to present with cognitive impairment which impedes his ability to care of himself, and requires multiple supports and external structures. Assessment What has happened this shift: Patient was social and visited with staff and other patients. Patient is well oriented, polite, he continuously smiles. Patient denies complaint save for minor restlessness for he requested Ativan late night. Patient has been medication compliant. Patient looks forward to transfer. No distress or problems this shift. S/I, H/I: Denies. A/VH: Denies. Sleep: Slept after PO Ativan. ADL's: Independent. Group attendance: N/A Were meds taken: Yes Any med S/E: None noted or observed Mental Status Exam Appearance: Slightly disheveled. Wearing black pants and t-shirt, ball cap. Eye contact: Good. Behavior: Cooperative and pleasant. Speech: Normal rate and rhythm Mood: Feeling good, being social. Affect: Congruent with mood. Thought process: Circumstantial Thought Content: Desires snacks, to include a Milky [employer] candy bar. Cognition: Alert and oriented X4. Insight: Fair. Judgment: Fair. Interventions PRN's used: Ativan prior to sleep. Therapeutic interventions: 1:1 assessment, therapeutic conversation, active listening, maintained a safe and therapeutic environment, medication administration/education/monitoring, encouragement to choose healthy snacks and use elliptical machine, Q 15 min safety checks. Restraints/seclusion/emergency medication: N/A Justification of Continued Inpatient Treatment: Pt. continues to require a safe and supportive environment, and remains GD r/t mental health. He is LPS conserved and awaiting IMD placement.
[2020-02-12] MEDS: atomoxetine 40 MG capsule PO SCH (07:44)
[2020-02-12] MEDS: docusate sod 100mg capsule PO SCH ×2 (07:44→20:57)
[2020-02-12] MEDS: propranolol 10mg tablet PO SCH ×3 (07:44→20:57)
[2020-02-12] MEDS: pantoprazole 40mg Tablet.DR PO SCH (07:44)
[2020-02-12] MEDS: benztropine 1mg tablet PO SCH ×2 (07:44→20:57)
[2020-02-12] MEDS: sennosides 8.6mg tablet PO SCH ×2 (07:44→20:57)
[2020-02-12] MEDS: nicotine 7mg patch - 24hr TD SCH (07:45)
[2020-02-12] MEDS: naproxen 500mg tablet PO SCH ×2 (08:31→20:57)
[2020-02-12 08:55] VITALS: BP 106/51
[2020-02-12] MEDS: clozapine 100mg tablet PO SCH ×2 (13:45→20:56)
[2020-02-12] MEDS: clozapine 25mg tablet PO SCH (14:00)
--- NOTE | 2020-02-12 15:41 | NUR ---
DAYANARA Soni's packet has been sent to [facility] for review. They are not currently taking new patients, however, they are reviewing packets now. MATTHIEU Strange
--- NOTE | 2020-02-12 16:32 | NUR ---
NURSING PROGRESS NOTE: Scotty Legal hold: LPS Client on involuntary status for GD Report received from Noc Shift RN, with use of SBAR Why are they here: Patient had been discharged previously with follow up at [facility] Team. Upon assessment by the [facility], it was determined patient was not able to obtain, food, [facility], or clothing and a 5150 for GD was written. Patient returned within hours of discharge. At time of return patient denied any symptoms related to his mental illness diagnosis of Schizophrenia. He continues to present with cognitive impairment which impedes his ability to care of himself, and requires multiple supports and external structures. Assessment What has happened this shift: Client was in bed to begin the shift but woke easily for medications and assessment. Compliant with all aspects of his care and currently has no somatic complaints. At 1000 hors, client was noted to be in his bed resting with eyes closed. Respirations are even and unlabored.Client was up for lunch and was visible on the unit until he went to rest in his room. He has had no behavioral issues this shift and was compliant with all aspects of his care. S/I, H/I: Denies. A/VH: Denies. Sleep: ADL's: Independent. Group attendance: N/A Were meds taken: Yes Any med S/E: None noted or observed Mental Status Exam Appearance: Slightly disheveled. Eye contact: Good. Behavior: Cooperative and pleasant. Speech: Normal rate and rhythm Mood: Feeling good, being social. Affect: Congruent with mood. Thought process: Circumstantial Thought Content: Desires snacks Cognition: Alert and oriented X4. Insight: Fair. Judgment: Fair. Interventions PRN's used: Therapeutic interventions: 1:1 assessment, therapeutic conversation, active listening, maintained a safe and therapeutic environment, medication administration/education/monitoring, encouragement to choose healthy snacks and use elliptical machine, Q 15 min safety checks. Restraints/seclusion/emergency medication: N/A Justification of Continued Inpatient Treatment: Pt. continues to require a safe and supportive environment, and remains GD r/t mental health. He is LPS conserved and awaiting IMD placement.
[2020-02-12] MEDS: NICOTINE POLACRILEX 2 MG LOZENGE BC PRN (19:11)
[2020-02-12 20:00] VITALS: BP 133/85
[2020-02-12] MEDS: atorvastatin 10mg tablet PO SCH (20:57)
--- NOTE | 2020-02-13 05:06 | NUR ---
NURSING PROGRESS NOTE Legal hold: LPS Client on involuntary status for GD Report received from LUIS FERNANDO Peraza with use of SBAR Why are they here: Patient had been discharged previously with follow up at [facility] Team. Upon assessment by the [facility], it was determined patient was not able to obtain, food, fpc, or clothing and a 5150 for GD was written. Patient returned within hours of discharge. At time of return patient denied any symptoms related to his mental illness diagnosis of Schizophrenia. He continues to present with cognitive impairment which impedes his ability to care of himself, and requires multiple supports and external structures. Assessment What has happened this shift: Patient was social and visited with staff and other patients. Patient is well oriented, polite, he continuously smiles. Does not have any complaints tonight other than asking for a snack before bed. S/I, H/I: Denies. A/VH: Denies. Sleep: sleeping well tonight without ativan ADL's: Independent. Group attendance: N/A Were meds taken: Yes Any med S/E: None noted or observed Mental Status Exam Appearance: clean. Wearing black pants and t-shirt, ball cap. Eye contact: Good. Behavior: Cooperative and pleasant. Speech: Normal rate and rhythm Mood: Feeling good, being social. Affect: Congruent with mood. Thought process: Circumstantial Thought Content: Desires snacks Cognition: Alert and oriented X4. Insight: Fair. Judgment: Fair. Interventions PRN's used: nicotine lozenge Therapeutic interventions: 1:1 assessment, therapeutic conversation, active listening, maintained a safe and therapeutic environment, medication administration/education/monitoring, encouragement to choose healthy snacks and use elliptical machine, Q 15 min safety checks. Restraints/seclusion/emergency medication: N/A Justification of Continued Inpatient Treatment: Pt. continues to require a safe and supportive environment, and remains GD r/t mental health. He is LPS conserved and awaiting IMD placement.
[2020-02-13 08:00] VITALS: BP 110/74
[2020-02-13] MEDS: nicotine 7mg patch - 24hr TD SCH (08:21)
[2020-02-13] MEDS: benztropine 1mg tablet PO SCH ×2 (08:22→20:24)
[2020-02-13] MEDS: pantoprazole 40mg Tablet.DR PO SCH (08:22)
[2020-02-13] MEDS: docusate sod 100mg capsule PO SCH ×2 (08:22→20:24)
[2020-02-13] MEDS: propranolol 10mg tablet PO SCH ×3 (08:22→20:23)
[2020-02-13] MEDS: atomoxetine 40 MG capsule PO SCH (08:23)
[2020-02-13] MEDS: sennosides 8.6mg tablet PO SCH ×2 (08:23→20:24)
[2020-02-13] MEDS: naproxen 500mg tablet PO SCH ×2 (08:23→17:46)
[2020-02-13] MEDS: clozapine 25mg tablet PO SCH (13:08)
[2020-02-13] MEDS: clozapine 100mg tablet PO SCH ×2 (13:08→20:23)
--- NOTE | 2020-02-13 14:43 | NUR ---
Nursing Progress Note: Legal hold: LPS Client on involuntary status for GD Report received from RN with use of SBAR Why are they here: Patient had been discharged previously with follow up at [facility] Team. [place] [facility] [place] determined patient was not able to obtain, food, residential, or clothing and a 5150 for GD was written. Patient returned within hours of discharge. At time of return patient denied any symptoms related to his mental illness diagnosis of Schizophrenia. He continues to present with cognitive impairment which impedes his ability to care of himself, and requires multiple supports and external structures. Assessment What has happened this shift: Received Pt in bed sleeping w/o distress at beginning of shift. He awoke for vitals and was pleasant/cooperative and sleepy. Pt ate breakfast and took AM meds. Napped in AM. Pt pleasant and cooperative and in euthymic mood although tired. Ate meals in community room with others and interacted appropriately while watching TV. Smiled a lot today and in overall euthymic mood. Did not witness Pt responding to internal stimuli. S/I, H/I: Pt Denies A/VH: Denies. Sleep: Napped in AM ADL's: Independent Group attendance: Yes Were meds taken: Yes Any med S/E: None noted or reported. Mental Status Exam Appearance: Casual in personal attire. Eye contact: Good Behavior: Calm, Cooperative Speech: Clear, audible, minimal Mood: Euthymic Affect: Congruent with mood Thought process: Linear Thought Content: Entertainment Cognition: A/O X 4 Insight: Poor Judgment: Poor Interventions PRN's used: None. Therapeutic interventions: 1:1 assessment, therapeutic conversation, active listening, maintained a safe and therapeutic environment, monitored behaviors and need for intervention, encouragement to perform personal hygiene, Q 15 min safety checks. Restraints/seclusion/emergency medication: N/A Justification of Continued Inpatient Treatment: Pt. continues to require a safe and supportive environment, and remains GD r/t mental health. He is LPS conserved and awaiting IMD placement.
[2020-02-13 20:00] VITALS: BP 115/82
[2020-02-13] MEDS: atorvastatin 10mg tablet PO SCH (20:24)
[2020-02-13] MEDS: LORazepam 0.5 MG tablet PO PRN (22:59)
--- NOTE | 2020-02-13 23:55 | NUR ---
Nursing Progress Note: Legal hold: LPS Client on involuntary status for GD Report received from Stu GOULD with use of SBAR Why are they here: Patient had been discharged previously with follow up at [facility] Team. Upon assessment by the [facility], it was determined patient was not able to obtain, food, long-term, or clothing and a 5150 for GD was written. Patient returned within hours of discharge. At time of return patient denied any symptoms related to his mental illness diagnosis of Schizophrenia. He continues to present with cognitive impairment which impedes his ability to care of himself, and requires multiple supports and external structures. Assessment What has happened this shift: Patient was in rec room watching tv with peers. Pt in good mood social with staff and making jokes. Pt would get up from time to time and walk the jama where he would talk to him self. Pt was med compliant and cooperative. S/I, H/I: Pt Denies A/VH: Denies. Sleep: well ADL's: Independent Group attendance: Yes Were meds taken: Yes Any med S/E: None noted or reported. Mental Status Exam Appearance: Casual in personal attire. Eye contact: Good Behavior: Calm, Cooperative Speech: Clear, audible, minimal Mood: Euthymic Affect: Congruent with mood Thought process: Linear Thought Content: Entertainment Cognition: A/O X 4 Insight: Poor Judgment: Poor Interventions PRN's used: Ativan Therapeutic interventions: 1:1 assessment, therapeutic conversation, active listening, maintained a safe and therapeutic environment, monitored behaviors and need for intervention, encouragement to perform personal hygiene, Q 15 min safety checks. Restraints/seclusion/emergency medication: N/A Justification of Continued Inpatient Treatment: Pt. continues to require a safe and supportive environment, and remains GD r/t mental health. He is LPS conserved and awaiting IMD placement.
[2020-02-14 08:34] VITALS: BP 98/43
[2020-02-14 08:40] VITALS: BP 130/80
[2020-02-14] MEDS: benztropine 1mg tablet PO SCH ×2 (09:03→20:14)
[2020-02-14] MEDS: sennosides 8.6mg tablet PO SCH ×2 (09:03→20:15)
[2020-02-14] MEDS: propranolol 10mg tablet PO SCH ×3 (09:03→20:15)
[2020-02-14] MEDS: docusate sod 100mg capsule PO SCH ×2 (09:03→20:14)
[2020-02-14] MEDS: pantoprazole 40mg Tablet.DR PO SCH (09:03)
[2020-02-14] MEDS: nicotine 7mg patch - 24hr TD SCH (09:04)
[2020-02-14] MEDS: naproxen 500mg tablet PO SCH ×2 (09:04→17:42)
[2020-02-14] MEDS: atomoxetine 40 MG capsule PO SCH (09:04)
--- NOTE | 2020-02-14 10:36 | NUR ---
F/u (02/13): Pt PO mostly 100% avg diet receiving additional proteins and salad per MD order. +31.2kg since admit likely combination of current diet order and medications. LBM 02/11. No nutrition concerns at this time. Rec: 1. continue heart healthy diet 2. Double eggs q breakfast, double meat BIDLD; extra fruits/vegetables on meal trays; salad BIDLD all per MD diet order 3. routine bowel care 4. wt per rx Addendum: 02/14/20 at [address] Amended: Links added.
--- NOTE | 2020-02-14 10:57 | NUR ---
Nursing Progress Note: Legal hold: LPS Client on involuntary status for GD Report received from nurse with use of SBAR: LUIS FERNANDO Guerrero Why are they here: Patient had been discharged previously with follow up at [facility] Team. Upon assessment by the [facility], it was determined patient was not able to obtain, food, half-way, or clothing and a 5150 for GD was written. Patient returned within hours of discharge. At time of return patient denied any symptoms related to his mental illness diagnosis of Schizophrenia. He continues to present with cognitive impairment which impedes his ability to care of himself, and requires multiple supports and external structures. Assessment What has happened this shift: Received pt. laying in bed sleeping at the beginning of the shift, this chief underwriter awoke him for breakfast, and afterwards he retreated back to bed. Pt. continues to present as cooperative and pleasant. 1:1 completed at bedside; he continues to deny all MH s/s, reports he is just awaiting when he can leave, and has no complaints r/t his continued stay on the unit. No delusional statements made, and pt. does not appear to be internally preoccupied. He remains in bed sleeping throughout the morning as is his normal routine. S/I, H/I: Denies A/VH: Pt. denies, no s/s of response to internal stimuli Sleep: Pt. reports he slept well, sleep hours are 6.75 and pt. naps throughout the day ADL's: Independent Group attendance: N/A Were meds taken: Yes Any med S/E: None Mental Status Exam Appearance: Presents as neat, and appropriately dressed. Eye contact: Good Behavior: Cooperative and pleasant Speech: Soft and animated, child-like. Mood: Pleasant Affect: Animated Thought process: WNL Thought Content: Poverty of thought Cognition: A&O X4 Insight: Fair Judgment: Fair Interventions PRN's used: None Therapeutic interventions: Ensured contract for safety, maintained a safe and therapeutic environment, provided clear and simple instructions, monitored behaviors and need for intervention, provided active listening, encouraged independent performance of ADLs, and maintained Q 15 min safety checks. Restraints/seclusion/emergency medication: N/A Justification of Continued Inpatient Treatment: Per MIRI Meyer, pt. continues to require a safe and supportive environment while he awaits placement. He is recommending that pt. transfer to a [id number].
[2020-02-14 13:35] VITALS: BP 140/80
[2020-02-14] MEDS: clozapine 25mg tablet PO SCH (13:36)
[2020-02-14] MEDS: clozapine 100mg tablet PO SCH ×2 (13:36→20:14)
[2020-02-14 20:00] VITALS: BP 125/79
[2020-02-14] MEDS: atorvastatin 10mg tablet PO SCH (20:14)
[2020-02-14] MEDS: LORazepam 0.5 MG tablet PO PRN (21:51)
--- NOTE | 2020-02-14 23:02 | NUR ---
Nursing Progress Note: Legal hold: LPS Client on involuntary status for GD Report received from nurse with use of SBAR: Stu RN Why are they here: Patient had been discharged previously with follow up at [facility] Team. Upon assessment by the [facility], it was determined patient was not able to obtain, food, longterm, or clothing and a 5150 for GD was written. Patient returned within hours of discharge. At time of return patient denied any symptoms related to his mental illness diagnosis of Schizophrenia. He continues to present with cognitive impairment which impedes his ability to care of himself, and requires multiple supports and external structures. Assessment What has happened this shift: Patient in rec room watching tv with peers and charging his ankle monitor. Pt is calm and cooperative pleasant med compliant. He did not appear to be responding to internal stimuli this shift. S/I, H/I: Denies A/VH: Pt. denies, no s/s of response to internal stimuli Sleep: Pt. reports he slept well, sleep hours are 6.75 and pt. naps throughout the day ADL's: Independent Group attendance: N/A Were meds taken: Yes Any med S/E: None Mental Status Exam Appearance: Presents as neat, and appropriately dressed. Eye contact: Good Behavior: Cooperative and pleasant Speech: Soft and animated, child-like. Mood: Pleasant Affect: Animated Thought process: WNL Thought Content: Poverty of thought Cognition: A&O X4 Insight: Fair Judgment: Fair Interventions PRN's used: None Therapeutic interventions: Ensured contract for safety, maintained a safe and therapeutic environment, provided clear and simple instructions, monitored behaviors and need for intervention, provided active listening, encouraged independent performance of ADLs, and maintained Q 15 min safety checks. Restraints/seclusion/emergency medication: N/A Justification of Continued Inpatient Treatment: Per MIRI Meyer, pt. continues to require a safe and supportive environment while he awaits placement. He is recommending that pt. transfer to a [id number].
[2020-02-15] MEDS: benztropine 1mg tablet PO SCH ×2 (07:41→20:35)
[2020-02-15] MEDS: docusate sod 100mg capsule PO SCH ×2 (07:41→20:28)
[2020-02-15] MEDS: atomoxetine 40 MG capsule PO SCH (07:41)
[2020-02-15] MEDS: pantoprazole 40mg Tablet.DR PO SCH (07:41)
[2020-02-15] MEDS: sennosides 8.6mg tablet PO SCH ×2 (07:41→20:35)
[2020-02-15] MEDS: propranolol 10mg tablet PO SCH ×3 (07:41→20:35)
[2020-02-15] MEDS: nicotine 7mg patch - 24hr TD SCH (07:43)
[2020-02-15 08:00] VITALS: BP 124/85
[2020-02-15] MEDS: naproxen 500mg tablet PO SCH (08:34)
[2020-02-15] MEDS: clozapine 25mg tablet PO SCH (13:00)
[2020-02-15] MEDS: clozapine 100mg tablet PO SCH ×2 (13:00→20:35)
--- NOTE | 2020-02-15 15:25 | NUR ---
Nursing Progress Note: Scotty Legal hold: LPS Client on involuntary status for GD Report received from nurse with use of SBAR: LUIS FERNANDO Guerrero Why are they here: Patient had been discharged previously with follow up at [facility]. Upon [place] [facility] [place] was determined patient was not able to obtain, food, residential, or clothing and a 5150 for GD was written. Patient returned within hours of discharge. At time of return patient denied any symptoms related to his mental illness diagnosis of Schizophrenia. He continues to present with cognitive impairment which impedes his ability to care of himself, and requires multiple supports and external structures. Assessment What has happened this shift: Client was awake to begin the shift and was amicable to medications and assessment. He is social with staff and peers and has had no behavioral issues so far this shift. Client went to his room to rest after breakfast and remains there as of 1109 hours. Client woke for noon meal and is now social and visble on the unit. Client is discharge oriented and wants to stay near [place]. Client is showing insight as it pertains to discharge and is busy planning for his release from this facility. S/I, H/I: Denies A/VH: Pt. denies, no s/s of response to internal stimuli Sleep: ADL's: Independent Group attendance: Were meds taken: Yes Any med S/E: None Mental Status Exam Appearance: Presents as neat, and appropriately dressed. Eye contact: Good Behavior: Cooperative and pleasant Speech: Soft and animated, child-like. Mood: Pleasant Affect: Animated Thought process: WNL Thought Content: Poverty of thought Cognition: A&O X4 Insight: Fair Judgment: Fair Interventions PRN's used: None Therapeutic interventions: Ensured contract for safety, maintained a safe and therapeutic environment, provided clear and simple instructions, monitored behaviors and need for intervention, provided active listening, encouraged independent performance of ADLs, and maintained Q 15 min safety checks. Restraints/seclusion/emergency medication: N/A Justification of Continued Inpatient Treatment: Per MIRI Meyer, pt. continues to require a safe and supportive environment while he awaits placement. He is recommending that pt. transfer to a [id number].
[2020-02-15 19:00] VITALS: BP 132/76
[2020-02-15] MEDS: acetaminophen 325mg tablet PO PRN (20:34)
[2020-02-15] MEDS: atorvastatin 10mg tablet PO SCH (20:35)
[2020-02-15] MEDS: LORazepam 1 MG tablet PO PRN (20:54)
--- NOTE | 2020-02-16 05:34 | NUR ---
Nursing Progress Note: Legal hold: LPS Client on involuntary status for GD Report received from nurse with use of SBAR: LUIS FERNANDO Fox Why are they here: Patient had been discharged previously with follow up at [facility] Team. Upon assessment by the [facility], it was determined patient was not able to obtain, food, snf, or clothing and a 5150 for GD was written. Patient returned within hours of discharge. At time of return patient denied any symptoms related to his mental illness diagnosis of Schizophrenia. He continues to present with cognitive impairment which impedes his ability to care of himself, and requires multiple supports and external structures. Assessment What has happened this shift: Patient watching TV in the community room at the beginning of shift. Pleasant and cooperative with all care; compliant with medication. PRN Tylenol provide for THOMAS with positive effect and PRN Ativan provided upon request with positive effect. Patient denies SI, HI, A/VH and does not appear internally preoccupied this shift. Patient smiling and joking with copywriter. Participated in HS snack before retiring to bed. S/I, H/I: Denies A/VH: Pt. denies, no internal stimuli observed Sleep: Refer to sleep assessment ADL's: Independent Group attendance: No groups this shift Were meds taken: Yes Any med S/E: None observed or reported Mental Status Exam Appearance: Neat, clean and appropriately dressed. Eye contact: Good Behavior: Cooperative and pleasant Speech: Soft, audible, regular rate/rhythm Mood: Euthymic Affect: Animated Thought process: Linear Thought Content: Music Cognition: A&O X4 Insight: Fair Judgment: Fair Interventions PRN's used: None Therapeutic interventions: Ensured contract for safety, maintained a safe and therapeutic environment, provided clear and simple instructions, monitored behaviors and need for intervention, provided active listening, encouraged independent performance of ADLs, and maintained Q 15 min safety checks. Restraints/seclusion/emergency medication: N/A Justification of Continued Inpatient Treatment: MIRI Whittaker, pt. continues to require a safe and supportive environment while he awaits placement. He is recommending that pt. transfer to a [id number].
[2020-02-16] MEDS: acetaminophen 325mg tablet PO PRN ×2 (06:02→13:43)
[2020-02-16 08:00] VITALS: BP 142/83
[2020-02-16] MEDS: propranolol 10mg tablet PO SCH ×3 (08:18→21:21)
[2020-02-16] MEDS: naproxen 500mg tablet PO SCH ×2 (08:18→17:41)
[2020-02-16] MEDS: sennosides 8.6mg tablet PO SCH ×2 (08:19→21:21)
[2020-02-16] MEDS: benztropine 1mg tablet PO SCH ×2 (08:19→21:21)
[2020-02-16] MEDS: atomoxetine 40 MG capsule PO SCH (08:19)
[2020-02-16] MEDS: docusate sod 100mg capsule PO SCH ×2 (08:19→21:21)
[2020-02-16] MEDS: pantoprazole 40mg Tablet.DR PO SCH (08:19)
[2020-02-16] MEDS: nicotine 7mg patch - 24hr TD SCH (08:22)
[2020-02-16 12:25] VITALS: BP 131/99
[2020-02-16] MEDS: clozapine 100mg tablet PO SCH ×2 (13:02→21:21)
[2020-02-16] MEDS: clozapine 25mg tablet PO SCH (13:02)
[2020-02-16] MEDS: NICOTINE POLACRILEX 2 MG LOZENGE BC PRN (13:40)
--- NOTE | 2020-02-16 16:44 | NUR ---
Nursing Progress Note: [place] Legal hold: LPS Client on involuntary status for GD Report received from nurse with use of SBAR: Avril aGrcia RN Why are they here: Patient had been discharged previously with follow up at [facility] Team. Upon assessment by the [facility], it was determined patient was not able to obtain, food, skilled nursing, or clothing and a 5150 for GD was written. Patient returned within hours of discharge. At time of return patient denied any symptoms related to his mental illness diagnosis of Schizophrenia. He continues to present with cognitive impairment which impedes his ability to care of himself, and requires multiple supports and external structures. Assessment What has happened this shift: Pt was up for breakfast, he did not nap much today but was present in the milieu. Pt is pleasant, polite, and cooperative. He is med compliant. He walks around the unit, watches TV and socializes with staff and peers. Pt has a good sense of humor and often jokes with staff. Pt c/o 03/15 headache pain and was given prn Tylenol 650 mg along with a nicotine lozenge at 1343. Pt has gained 71 pounds during his stay here. Changed diet to heart healthy with salads and extra fruits and vegetables per gut puller's recommendations. S/I, H/I: Pt denies A/VH: Pt denies, did not appear to be responding to internal stimuli. Sleep: Pt slept 6.75 hours last night per noc shift report. ADL's: Independent Group attendance: No Were meds taken: Yes Any med S/E: None noted or reported. Mental Status Exam Appearance: Tall, obese young man with partially shaved head (patch of hair on top of his head) wearing black sweat pants and a black t-shirt. Eye contact: Good Behavior: Pleasant and cooperative, socializes with staff and peers, makes jokes with staff. Speech: Clear, soft, minimal Mood: Bored Affect: Blunted with brightening Thought process: Slow, child-like mentation Thought Content: Bored Cognition: A&O X4 Insight: Fair Judgment: Fair Interventions PRN's used: Tylenol 650 mg, nicotine lozenge Therapeutic interventions: 1:1 assessment, active listening, therapeutic conversation, medication administration/education/monitoring, encouragement to make healthy food choices, positive reinforcement, maintained Q 15 min safety checks. Restraints/seclusion/emergency medication: N/A Justification of Continued Inpatient Treatment: Per MIRI Meyer, pt. continues to require a safe and supportive environment while he awaits placement. He is recommending that pt. transfer to a Uhrqe-oag-Ajtz.
[2020-02-16 19:49] VITALS: BP 134/89
[2020-02-16] MEDS: atorvastatin 10mg tablet PO SCH (21:20)
[2020-02-17] MEDS: NICOTINE POLACRILEX 2 MG LOZENGE BC PRN ×2 (00:43→20:53)
[2020-02-17] MEDS: LORazepam 1 MG tablet PO PRN (00:43)
--- NOTE | 2020-02-17 05:25 | NUR ---
Nursing Progress Note: Legal hold: LPS Client on involuntary status for GD Report received from nurse with use of SBAR: LUIS FERNANDO Fox Why are they here: Patient had been discharged previously with follow up at [facility] Team. Upon assessment by the [facility], it was determined patient was not able to obtain, food, nursing home, or clothing and a 5150 for GD was written. Patient returned within hours of discharge. At time of return patient denied any symptoms related to his mental illness diagnosis of Schizophrenia. He continues to present with cognitive impairment which impedes his ability to care of himself, and requires multiple supports and external structures. Assessment What has happened this shift: Patient walking the jama and socializing with peers at the beginning of shift. Remains pleasant and cooperative with all care; compliant with all medication. PRN Ativan and Nicotine lozenge provided upon request. Patient denies SI, HI, A/VH and does not appear internally preoccupied this shift. Patient continues to laugh and joke with with staff. He participated in HS snack and watched TV with peers prior to bed. Does not appear to be having difficulty sleeping. S/I, H/I: Denies A/VH: Pt. denies, no internal stimuli observed Sleep: Refer to sleep assessment ADL's: Independent Group attendance: No groups this shift Were meds taken: Yes Any med S/E: None observed or reported Mental Status Exam Appearance: Neat, clean and appropriately dressed. Eye contact: Good Behavior: Cooperative and pleasant Speech: Soft, audible, regular rate/rhythm Mood: Euthymic Affect: Animated Thought process: Linear Thought Content: Music, shows, snacks Cognition: A&O X4 Insight: Fair Judgment: Fair Interventions PRN's used: Ativan and Nicotine lozenge Therapeutic interventions: Ensured contract for safety, maintained a safe and therapeutic environment, provided clear and simple instructions, monitored behaviors and need for intervention, provided active listening, encouraged independent performance of ADLs, and maintained Q 15 min safety checks. Restraints/seclusion/emergency medication: N/A Justification of Continued Inpatient Treatment: Per MIRI Meyer, pt. continues to require a safe and supportive environment while he awaits placement. He is recommending that pt. transfer to a [id number]-mav-Vvis.
[2020-02-17 07:56] VITALS: BP 116/60
[2020-02-17] MEDS: pantoprazole 40mg Tablet.DR PO SCH (08:11)
[2020-02-17] MEDS: benztropine 1mg tablet PO SCH ×2 (08:11→20:49)
[2020-02-17] MEDS: atomoxetine 40 MG capsule PO SCH (08:12)
[2020-02-17] MEDS: nicotine 7mg patch - 24hr TD SCH (08:12)
[2020-02-17] MEDS: sennosides 8.6mg tablet PO SCH ×2 (08:12→20:49)
[2020-02-17] MEDS: docusate sod 100mg capsule PO SCH ×2 (08:12→20:49)
[2020-02-17] MEDS: propranolol 10mg tablet PO SCH ×3 (08:12→20:49)
[2020-02-17] MEDS: naproxen 500mg tablet PO SCH ×2 (08:14→17:57)
[2020-02-17] MEDS: clozapine 100mg tablet PO SCH ×2 (13:23→20:49)
[2020-02-17] MEDS: clozapine 25mg tablet PO SCH (13:23)
--- NOTE | 2020-02-17 16:44 | NUR ---
Nursing Progress Note: Legal hold: LPS Client on involuntary status for GD Report received from nurse with use of SBAR: Avril Garcia RN Why are they here: Patient had been discharged previously with follow up at [facility] Team. Upon assessment by the [facility], it was determined patient was not able to obtain, food, assisted, or clothing and a 5150 for GD was written. Patient returned within hours of discharge. At time of return patient denied any symptoms related to his mental illness diagnosis of Schizophrenia. He continues to present with cognitive impairment which impedes his ability to care of himself, and requires multiple supports and external structures. Assessment What has happened this shift: Received pt. sleeping at shift change. Patient arouses for meals, but then goes back to bed. Patient only slept 4 hrs last night, and reports that he stays up late and has "some time to myself watching t.v.". Patient is pleasant and cooperative in all interactions. Medications are taken without incident. Patient is excited to possibly go to a [facility], where he can go outside, and go to [facility]. S/I, H/I: Pt denies A/VH: Pt denies, did not appear to be responding to internal stimuli. Sleep: 4 hrs NOC, napped. ADL's: Independent Group attendance: No Were meds taken: Yes Any med S/E: None noted or reported. Mental Status Exam Appearance: Well groomed patient in personal attire. Eye contact: Good Behavior: Pleasant and cooperative, socializes with staff and peers, makes jokes with staff. Speech: Clear, soft, minimal Mood: Bored Affect: Blunted with brightening Thought process: Slow, child-like mentation Thought Content: Going to board and [facility]. Cognition: A&O X4 Insight: Fair Judgment: Fair Interventions PRN's used: nicotine lozenge Therapeutic interventions: 1:1 assessment, active listening, therapeutic conversation, medication administration/education/monitoring, encouragement to make healthy food choices, positive reinforcement, maintained Q 15 min safety checks. Restraints/seclusion/emergency medication: N/A Justification of Continued Inpatient Treatment: Per MIRI Meyer, pt. continues to require a safe and supportive environment while he awaits placement. He is recommending that pt. transfer to a Mepim-pqi-Cyea.
[2020-02-17 19:57] VITALS: BP 118/84
[2020-02-17] MEDS: atorvastatin 10mg tablet PO SCH (20:49)
--- NOTE | 2020-02-18 05:25 | NUR ---
Nursing Progress Note: Legal hold: LPS Client on involuntary status for GD Report received from nurse with use of SBAR: LUIS FERNANDO Fox Why are they here: Patient had been discharged previously with follow up at [facility] Team. Upon assessment by the [facility], it was determined patient was not able to obtain, food, longterm, or clothing and a 5150 for GD was written. Patient returned within hours of discharge. At time of return patient denied any symptoms related to his mental illness diagnosis of Schizophrenia. He continues to present with cognitive impairment which impedes his ability to care of himself, and requires multiple supports and external structures. Assessment What has happened this shift: Patient laying in bed and socializing with roommate at the beginning of shift. Later observed watching TV with peers. Pleasant and cooperative with all care; complaint with all medication. PRN Nicotine lozenge provided upon request. Continues to deny SI, HI, A/VH this shift and does not appear internally preoccupied. Patient participated in HS snack and continued to watch TV prior to bed. S/I, H/I: Denies A/VH: Pt. denies, no internal stimuli observed Sleep: Refer to sleep assessment ADL's: Independent Group attendance: No groups this shift Were meds taken: Yes Any med S/E: None observed or reported Mental Status Exam Appearance: Neat, clean and appropriately dressed. Eye contact: Good Behavior: Cooperative and pleasant Speech: Soft, audible, regular rate/rhythm Mood: Euthymic Affect: Animated Thought process: Linear Thought Content: Joking with staff, music Cognition: A&O X4 Insight: Fair Judgment: Fair Interventions PRN's used: Nicotine lozenge Therapeutic interventions: Ensured contract for safety, maintained a safe and therapeutic environment, provided clear and simple instructions, monitored behaviors and need for intervention, provided active listening, encouraged independent performance of ADLs, and maintained Q 15 min safety checks. Restraints/seclusion/emergency medication: N/A Justification of Continued Inpatient Treatment: MIRI Whittaker, pt. continues to require a safe and supportive environment while he awaits placement. He is recommending that pt. transfer to a [id number]-jfq-Dzzb.
[2020-02-18] MEDS: NICOTINE POLACRILEX 2 MG LOZENGE BC PRN ×2 (07:25→15:55)
[2020-02-18] MEDS: nicotine 7mg patch - 24hr TD SCH (07:46)
[2020-02-18] MEDS: docusate sod 100mg capsule PO SCH ×2 (07:46→20:39)
[2020-02-18] MEDS: naproxen 500mg tablet PO SCH ×2 (07:46→17:51)
[2020-02-18] MEDS: sennosides 8.6mg tablet PO SCH ×2 (07:46→20:38)
[2020-02-18] MEDS: benztropine 1mg tablet PO SCH ×2 (07:46→20:39)
[2020-02-18] MEDS: propranolol 10mg tablet PO SCH ×3 (07:47→20:39)
[2020-02-18] MEDS: pantoprazole 40mg Tablet.DR PO SCH (07:47)
[2020-02-18] MEDS: atomoxetine 40 MG capsule PO SCH (07:47)
[2020-02-18 07:59] LABS: BASOPHILS # (AUTO) 0.1 X10'3 (0-0.2); BASOPHILS % (AUTO) 0.7 % (0-1); EOSINOPHILS # (AUTO) 0.2 X10'3 (0-0.9); EOSINOPHILS % (AUTO) 2.2 % (0-6); HEMATOCRIT 45.4 % (42.0-52.0); HEMOGLOBIN 15.3 g/dl (14.0-17.9); LYMPHOCYTES # (AUTO) 2.7 X10'3 (1.1-4.8); LYMPHOCYTES % (AUTO) 33.5 % (21-51); MEAN CORPUSCULAR HEMOGLOBIN 28.2 PG (27.0-31.0); MEAN CORPUSCULAR HGB CONC 33.7 g/dL (33.0-36.5); MEAN CORPUSCULAR VOLUME 83.8 FL (78-98); MEAN PLATELET VOLUME 8.3 FL (7.4-10.4); MONOCYTES # (AUTO) 0.6 X10'3 (0-0.9); MONOCYTES % (AUTO) 7.6 % (2-12); NEUTROPHILS # (AUTO) 4.4 X10'3 (1.8-7.7); PLATELET COUNT 200 X10'3 (140-440); RED BLOOD COUNT 5.42 X10'6 (4.70-6.10); RED CELL DISTRIBUTION WIDTH 14.2 % (11.5-14.5); WHITE BLOOD COUNT 7.9 X10'3 (4.5-11.0)
[2020-02-18 08:02] VITALS: BP 148/83
[2020-02-18] MEDS: clozapine 25mg tablet PO SCH (13:35)
[2020-02-18] MEDS: clozapine 100mg tablet PO SCH ×2 (13:35→20:38)
--- NOTE | 2020-02-18 16:36 | NUR ---
Nursing Progress Note: Legal hold: LPS Client on involuntary status for GD Report received from nurse with use of SBAR: Avril Garcia RN Why are they here: Patient had been discharged previously with follow up at [facility] Team. Upon assessment by the [facility], it was determined patient was not able to obtain, food, mcc, or clothing and a 5150 for GD was written. Patient returned within hours of discharge. At time of return patient denied any symptoms related to his mental illness diagnosis of Schizophrenia. He continues to present with cognitive impairment which impedes his ability to care of himself, and requires multiple supports and external structures. Assessment What has happened this shift: Patient sleeping in bed at shift change. Per usual routine, patient attends all meals in the dining room, but then goes back to bed. Patient joking around with staff today, pleasant to be around. Patient takes all medications without incident. Patient did gain 6 pounds in the last week. Patient talks about exercising, but does not follow through. Patient reports boredom during the daytime. S/I, H/I: Pt denies A/VH: Denies. Sleep: napped. ADL's: Independent Group attendance: No Were meds taken: Yes Any med S/E: None noted or reported. Mental Status Exam Appearance: Neat and clean in personal attire. Eye contact: Good Behavior: Pleasant and cooperative, socializes with staff and peers, makes jokes with staff. Speech: Clear, soft, minimal Mood: Bored Affect: Blunted with brightening Thought process: Slow, child-like mentation Thought Content: Going to board and care. Cognition: A&O X4 Insight: Fair Judgment: Fair Interventions PRN's used: nicotine lozenge Therapeutic interventions: 1:1 assessment, active listening, therapeutic conversation, medication administration/education/monitoring, encouragement to make healthy food choices, positive reinforcement, maintained Q 15 min safety checks. Restraints/seclusion/emergency medication: N/A Justification of Continued Inpatient Treatment: Per MIRI Meyer, pt. continues to require a safe and supportive environment while he awaits placement. He is recommending that pt. transfer to a Khugl-yju-Mmcy.
[2020-02-18 20:00] VITALS: BP 120/73
[2020-02-18] MEDS: atorvastatin 10mg tablet PO SCH (20:40)
[2020-02-18] MEDS: LORazepam 1 MG tablet PO PRN (22:14)
--- NOTE | 2020-02-19 04:09 | NUR ---
Nursing Progress Note: Legal hold: LPS Client on involuntary status for GD Report received from nurse with use of SBAR: LUIS FERNANDO Peraza Why are they here: Patient had been discharged previously with follow up at [facility] Team. Upon assessment by the [facility], it was determined patient was not able to obtain, food, mcfp, or clothing and a 5150 for GD was written. Patient returned within hours of discharge. At time of return patient denied any symptoms related to his mental illness diagnosis of Schizophrenia. He continues to present with cognitive impairment which impedes his ability to care of himself, and requires multiple supports and external structures. Assessment What has happened this shift: Patient observed laying in bed at the beginning of shift. Shortly after watching TV in community room with peers. Patient pleasant and cooperative with all care; compliant with medication. PRN Ativan provided upon request with positive effect. Patient changed rooms this shift and remained pleasant and cooperative; observed socializing appropriately with roommate. Continues to deny SI, HI, A/VH and no internal stimuli observed this shift. Patient participated in HS snack and watched a movie in community room before retiring to bed. Does not appear to be having difficulty sleeping this shift. S/I, H/I: Denies A/VH: Pt. denies, no internal stimuli observed Sleep: Refer to sleep assessment ADL's: Independent Group attendance: No groups this shift Were meds taken: Yes Any med S/E: None observed or reported Mental Status Exam Appearance: Neat, clean and appropriately dressed. Eye contact: Good Behavior: Cooperative and pleasant, watching TV, socializing with peers and staff Speech: Soft, audible, regular rate/rhythm Mood: Euthymic Affect: Animated Thought process: Linear Thought Content: Movies Cognition: A&O X4 Insight: Fair Judgment: Fair Interventions PRN's used: Ativan Therapeutic interventions: Ensured contract for safety, maintained a safe and therapeutic environment, provided clear and simple instructions, monitored behaviors and need for intervention, provided active listening, encouraged independent performance of ADLs, and maintained Q 15 min safety checks. Restraints/seclusion/emergency medication: N/A Justification of Continued Inpatient Treatment: Per MIRI Meyer, pt. continues to require a safe and supportive environment while he awaits placement. He is recommending that pt. transfer to a Bymuf-hcq-Elgb.
[2020-02-19 08:11] VITALS: BP 114/68
[2020-02-19] MEDS: sennosides 8.6mg tablet PO SCH ×2 (08:49→20:13)
[2020-02-19] MEDS: atomoxetine 40 MG capsule PO SCH (08:49)
[2020-02-19] MEDS: nicotine 7mg patch - 24hr TD SCH (08:49)
[2020-02-19] MEDS: propranolol 10mg tablet PO SCH ×3 (08:50→20:12)
[2020-02-19] MEDS: pantoprazole 40mg Tablet.DR PO SCH (08:50)
[2020-02-19] MEDS: docusate sod 100mg capsule PO SCH ×2 (08:50→20:13)
[2020-02-19] MEDS: naproxen 500mg tablet PO SCH ×2 (08:50→17:37)
[2020-02-19] MEDS: benztropine 1mg tablet PO SCH ×2 (08:50→20:13)
--- NOTE | 2020-02-19 09:14 | NUR ---
CM-1:1 Monitoring of Progress Presenting Issues: Pt's a LPS conserved pt, has been @ [facility] since 07/2019, he's awaiting placement in an IMD/B&C. Interventions: SS met w/pt 1:1 to assess current progress with treatment regiment. Per session, pt reports that he's doing well, is slightly anxious and worries about if he would ever be able to d/c from [facility]. He attends groups, uses the stationary bike to keep productive and stays out of other pts dramas. SS reviewed chart, noted pt's been compliant with medication recommendations and expression of possible depression. Plan: SS will provide updated psychosocial to assess current MH status. Shirin Carlos,. MIQUEL Addendum: 02/20/20 at 0916 by Shirin Carlos SS Amended: Links added.
[2020-02-19] MEDS: clozapine 25mg tablet PO SCH (13:45)
[2020-02-19] MEDS: clozapine 100mg tablet PO SCH ×2 (13:45→20:11)
--- NOTE | 2020-02-19 16:16 | NUR ---
NURSING PROGRESS NOTE Legal hold: LPS Client on involuntary status for GD Report received from AXEL Price with use of SBAR: Why are they here: Patient had been discharged previously with follow up at [facility] Team. Upon assessment by the [facility], it was determined patient was not able to obtain, food, jail, or clothing and a 5150 for GD was written. Patient returned within hours of discharge. At time of return patient denied any symptoms related to his mental illness diagnosis of Schizophrenia. He continues to present with cognitive impairment which impedes his ability to care of himself, and requires multiple supports and external structures. Assessment What has happened this shift: Calm, cooperative as is his usual demeanor. No changes. Waiting for placement. States, "I'm still bored, but I'm fine." Euthymic mood, smiling affect. Sleeps on/off throughout day. Medication compliant. Denies SI, reports mild AH's at times which "don't bother me." S/I, H/I: Denies A/VH: Pt. denies Sleep: Frequent napping ADL's: Independent Group attendance: None Were meds taken: Yes Any med S/E: None observed or reported Mental Status Exam Appearance: Neat, clean and appropriately dressed. Eye contact: Good Behavior: Cooperative and pleasant Speech: Soft, clear Mood: Euthymic Affect: Smiling Thought process: Linear Thought Content: looking forward to placement Cognition: Alert Insight: Fair Judgment: Fair Interventions PRN's used: None Therapeutic interventions: Ensured contract for safety, maintained a safe and therapeutic environment, provided clear and simple instructions, monitored behaviors and need for intervention, provided active listening, encouraged independent performance of ADLs, and maintained Q 15 min safety checks. Restraints/seclusion/emergency medication: N/A Justification of Continued Inpatient Treatment: MIRI Whittaker, pt. continues to require a safe and supportive environment while he awaits placement. He is recommending that pt. transfer to a Avhti-bou-Rjey.
[2020-02-19 19:26] VITALS: BP 106/51
[2020-02-19] MEDS: atorvastatin 10mg tablet PO SCH (20:13)
--- NOTE | 2020-02-19 21:54 | NUR ---
NURSING PROGRESS NOTE Legal hold: LPS Client on involuntary status for GD Report received from AXEL Price with use of SBAR: Why are they here: Patient had been discharged previously with follow up at [facility] Team. Upon assessment by the [facility], it was determined patient was not able to obtain, food, longterm, or clothing and a 5150 for GD was written. Patient returned within hours of discharge. At time of return patient denied any symptoms related to his mental illness diagnosis of Schizophrenia. He continues to present with cognitive impairment which impedes his ability to care of himself, and requires multiple supports and external structures. Assessment What has happened this shift: Pt is smiling and sitting in the group room at change of shift watching movies. Pt states he is hopeful he is getting placed soon and states he just got approved for ssi so he thinks this will make the process go quicker. S/I, H/I: Denies A/VH: Pt. denies Sleep: see sleep hours ADL's: Independent Group attendance: None Were meds taken: Yes Any med S/E: None observed or reported Mental Status Exam Appearance: Neat, clean and appropriately dressed. Eye contact: Good Behavior: Cooperative and pleasant Speech: Soft, clear Mood: Euthymic Affect: Smiling Thought process: Linear Thought Content: looking forward to placement Cognition: Alert Insight: Fair Judgment: Fair Interventions PRN's used: None Therapeutic interventions: Ensured contract for safety, maintained a safe and therapeutic environment, provided clear and simple instructions, monitored behaviors and need for intervention, provided active listening, encouraged independent performance of ADLs, and maintained Q 15 min safety checks. Restraints/seclusion/emergency medication: N/A Justification of Continued Inpatient Treatment: Per MIRI Meyer, pt. continues to require a safe and supportive environment while he awaits placement. He is recommending that pt. transfer to a [id number]-Dgyl.
[2020-02-20] MEDS: LORazepam 1 MG tablet PO PRN ×2 (00:10→23:51)
[2020-02-20 07:28] VITALS: BP 114/61
[2020-02-20] MEDS: naproxen 500mg tablet PO SCH ×2 (07:56→17:16)
[2020-02-20] MEDS: atomoxetine 40 MG capsule PO SCH (07:56)
[2020-02-20] MEDS: nicotine 7mg patch - 24hr TD SCH (07:56)
[2020-02-20] MEDS: pantoprazole 40mg Tablet.DR PO SCH (07:56)
[2020-02-20] MEDS: docusate sod 100mg capsule PO SCH ×2 (07:56→20:40)
[2020-02-20] MEDS: sennosides 8.6mg tablet PO SCH ×2 (07:56→20:40)
[2020-02-20] MEDS: benztropine 1mg tablet PO SCH ×2 (07:57→20:40)
[2020-02-20] MEDS: propranolol 10mg tablet PO SCH ×3 (07:57→20:40)
--- NOTE | 2020-02-20 10:41 | NUR ---
F/u (02/19): Pt PO mostly 100% avg diet receiving additional proteins and salad per MD order. +35.41 kg since admit likely combination diet order and medications. [facility] 02/19. Rec: 1. continue heart healthy diet 2. Double eggs q breakfast, double meat BIDLD; extra fruits/vegetables on meal trays; salad BIDLD all per MD diet order 3. routine bowel care 4. wt per rx Addendum: 02/20/20 at [address] Amended: Links added.
[2020-02-20] MEDS: clozapine 25mg tablet PO SCH (13:45)
[2020-02-20] MEDS: clozapine 100mg tablet PO SCH ×2 (13:46→20:41)
--- NOTE | 2020-02-20 14:58 | NUR ---
NURSING PROGRESS NOTE Legal hold: LPS Client on involuntary status for GD Report received from LUIS FERNANDO Guerrero with use of SBAR: Why are they here: Patient had been discharged previously with follow up at [facility] Team. Upon assessment by the [facility], it was determined patient was not able to obtain, food, halfway, or clothing and a 5150 for GD was written. Patient returned within hours of discharge. At time of return patient denied any symptoms related to his mental illness diagnosis of Schizophrenia. He continues to present with cognitive impairment which impedes his ability to care of himself, and requires multiple supports and external structures. Assessment What has happened this shift: Calm, cooperative. No changes. Waiting for placement. States, "I'm ok today." Euthymic mood, smiling affect. Sleeps on/off throughout day. Medication compliant. Denies SI, no reports of AH's today and dows not appear to be RIS. S/I, H/I: Denies A/VH: Pt. denies Sleep: Frequent napping ADL's: Independent Group attendance: None Were meds taken: Yes Any med S/E: None observed or reported Mental Status Exam Appearance: Neat, clean and appropriately dressed. Eye contact: Good Behavior: Cooperative and pleasant Speech: Soft, clear Mood: Euthymic Affect: Smiling Thought process: Linear Thought Content: looking forward to placement Cognition: Alert Insight: Fair Judgment: Fair Interventions PRN's used: None Therapeutic interventions: Ensured contract for safety, maintained a safe and therapeutic environment, provided clear and simple instructions, monitored behaviors and need for intervention, provided active listening, encouraged independent performance of ADLs, and maintained Q 15 min safety checks. Restraints/seclusion/emergency medication: N/A Justification of Continued Inpatient Treatment: MIRI Whittaker, pt. continues to require a safe and supportive environment while he awaits placement. He is recommending that pt. transfer to a Zenhj-wux-Nmua.
[2020-02-20 20:00] VITALS: BP 129/81
[2020-02-20] MEDS: atorvastatin 10mg tablet PO SCH (20:40)
[2020-02-20] MEDS: NICOTINE POLACRILEX 2 MG LOZENGE BC PRN (20:40)
[2020-02-20 21:06] VITALS: BP 129/81
--- NOTE | 2020-02-20 21:45 | NUR ---
NURSING PROGRESS NOTE Legal hold: LPS Client on involuntary status for GD Report received from LUIS FERNANDO Peraza with use of SBAR: Why are they here: Patient had been discharged previously with follow up at [facility] Team. Upon assessment by the [facility], it was determined patient was not able to obtain, food, residential, or clothing and a 5150 for GD was written. Patient returned within hours of discharge. At time of return patient denied any symptoms related to his mental illness diagnosis of Schizophrenia. He continues to present with cognitive impairment which impedes his ability to care of himself, and requires multiple supports and external structures. Assessment What has happened this shift: Pt was watching tv in the rec room tonight, he states he is writing a letter to his parents in [place] to see if they will come and visit him. Pt says he came to [place] because the beaches and the weather looked nice but he misses [place]. Pt states he hopes he can get placed soon so he can have a cigarette and wants to have "mcdonalds, pizza and cake." Pt requested nicotine lozenge with scheduled meds tonight. He is pleasant, cooperative, denies s/i and was not overheard RIS tonight. S/I, H/I: Denies A/VH: Pt. denies Sleep: Frequent napping ADL's: Independent Group attendance: None Were meds taken: Yes Any med S/E: None observed or reported Mental Status Exam Appearance: Neat, clean and appropriately dressed. Eye contact: Good Behavior: Cooperative and pleasant Speech: Soft, clear Mood: Euthymic Affect: Smiling Thought process: Linear Thought Content: looking forward to placement Cognition: Alert Insight: Fair Judgment: Fair Interventions PRN's used: None Therapeutic interventions: Ensured contract for safety, maintained a safe and therapeutic environment, provided clear and simple instructions, monitored behaviors and need for intervention, provided active listening, encouraged independent performance of ADLs, and maintained Q 15 min safety checks. Restraints/seclusion/emergency medication: N/A Justification of Continued Inpatient Treatment: Per MIRI Meyer, pt. continues to require a safe and supportive environment while he awaits placement. He is recommending that pt. transfer to a [id number].
[2020-02-21 07:39] VITALS: BP 102/57
[2020-02-21] MEDS: atomoxetine 40 MG capsule PO SCH (08:00)
[2020-02-21] MEDS: sennosides 8.6mg tablet PO SCH ×2 (08:20→20:25)
[2020-02-21] MEDS: naproxen 500mg tablet PO SCH ×2 (08:20→17:31)
[2020-02-21] MEDS: benztropine 1mg tablet PO SCH ×2 (08:20→20:25)
[2020-02-21] MEDS: nicotine 7mg patch - 24hr TD SCH (08:20)
[2020-02-21] MEDS: docusate sod 100mg capsule PO SCH ×2 (08:20→20:25)
[2020-02-21] MEDS: propranolol 10mg tablet PO SCH ×2 (08:21→12:56)
[2020-02-21] MEDS: pantoprazole 40mg Tablet.DR PO SCH (08:21)
[2020-02-21] MEDS: clozapine 100mg tablet PO SCH ×2 (13:56→20:25)
[2020-02-21] MEDS: clozapine 25mg tablet PO SCH (13:56)
--- NOTE | 2020-02-21 16:06 | NUR ---
NURSING PROGRESS NOTE Legal hold: LPS Client on involuntary status for GD Report received from LUIS FERNANDO Guerrero with use of SBAR: Why are they here: Patient had been discharged previously with follow up at [facility] Team. Upon assessment by the [facility], it was determined patient was not able to obtain, food, care home, or clothing and a 5150 for GD was written. Patient returned within hours of discharge. At time of return patient denied any symptoms related to his mental illness diagnosis of Schizophrenia. He continues to present with cognitive impairment which impedes his ability to care of himself, and requires multiple supports and external structures. Assessment What has happened this shift: Slept in but up for meals and meds as per his usual. Mayonnaise Mixer found Inderal pills (2) in his trash can. When asked about it he stated, they just fell out of his mouth unto the floor so he threw them away. He also stated they make his chest and heart "feel racing." Jonnie CHERY was notified and order was changed to prn for HR above 100. Wrote letters to family members and mailed today. Stated he might call his step mom who raised him. When asked how that might feel he was unable to formulate an answer. Does not appear to be RIS today. S/I, H/I: Denies A/VH: Denies Sleep: Frequent napping ADL's: Independent Group attendance: None Were meds taken: Yes Any med S/E: None observed or reported Mental Status Exam Appearance: Neat, clean and appropriately dressed. Eye contact: Good Behavior: Cooperative and pleasant Speech: Soft, clear Mood: Euthymic Affect: Smiling Thought process: Linear Thought Content: thinking of family members Cognition: Alert Insight: Fair Judgment: Fair Interventions PRN's used: None Therapeutic interventions: Ensured contract for safety, maintained a safe and therapeutic environment, provided clear and simple instructions, monitored behaviors and need for intervention, provided active listening, encouraged independent performance of ADLs, and maintained Q 15 min safety checks. Restraints/seclusion/emergency medication: N/A Justification of Continued Inpatient Treatment: Per MIRI Meyer, pt. continues to require a safe and supportive environment while he awaits placement. He is recommending that pt. transfer to a [id number].
[2020-02-21] MEDS: NICOTINE POLACRILEX 2 MG LOZENGE BC PRN (18:13)
[2020-02-21 19:54] VITALS: BP 126/75
[2020-02-21] MEDS: atorvastatin 10mg tablet PO SCH (20:25)
--- NOTE | 2020-02-21 22:33 | NUR ---
Nursing Progress Note: Legal hold: [facility] conservatorship Client on voluntary/involuntary status for GD Report received from Stu GOULD with use of SBAR Why are they here: Patient had been discharged previously with follow up at [facility] Team. Upon assessment by the [facility], it was determined patient was not able to obtain, food, correction, or clothing and a 5150 for GD was written. Patient returned within hours of discharge. At time of return patient denied any symptoms related to his mental illness diagnosis of Schizophrenia. He continues to present with cognitive impairment which impedes his ability to care of himself, and requires multiple supports and external structures. Assessment What has happened this shift: The patient has been up on the unit and social and friendly with peers and staff. He is here waiting for placement and stated that he was about to be discharged but a staff member at the facility he was going to came down with the Manley virus so his discharge has been postponed. He described his mood as "okay" and he denied hearing voices or having anxiety. He as medication compliant. He stated he did not like the Inderal because he felt it caused him to be too fatigued S/I, H/I: Denied by the patient A/VH: Denied by the patient ADL's: needs prompting and reported no shower for 2-3 days. Were meds taken: yes Any med S/E: see above note Mental Status Exam Appearance: The patient appears his stated age. He is dressed appropriately Eye contact: good eye contact Behavior: calm, cooperative, pleasant, friendly and appropriate Speech: Spontaneous. Regular rate and volume Mood: "okay" Affect: congruent to stated mood Thought process:goal directed Thought Content: situational difficulties Cognition: alert and oriented Insight: impaired Judgment:impaired Interventions PRN's used: none Therapeutic interventions: One to one with the patient to assess for any residual psychotic symptoms, mood and for medication side effects. Restraints/seclusion/emergency medication: NA Justification of Continued Inpatient Treatment: The patient is on conservatorship is waiting for placement through the Public Guardian's office.
[2020-02-21] MEDS: LORazepam 1 MG tablet PO PRN (23:04)
[2020-02-22 08:09] VITALS: BP 132/80
[2020-02-22] MEDS: docusate sod 100mg capsule PO SCH ×2 (08:42→19:25)
[2020-02-22] MEDS: naproxen 500mg tablet PO SCH ×2 (08:42→18:23)
[2020-02-22] MEDS: pantoprazole 40mg Tablet.DR PO SCH (08:42)
[2020-02-22] MEDS: sennosides 8.6mg tablet PO SCH ×2 (08:42→19:26)
[2020-02-22] MEDS: benztropine 1mg tablet PO SCH ×2 (08:42→19:25)
[2020-02-22] MEDS: atomoxetine 40 MG capsule PO SCH (08:43)
[2020-02-22] MEDS: nicotine 7mg patch - 24hr TD SCH (08:43)
[2020-02-22] MEDS: clozapine 25mg tablet PO SCH (13:15)
[2020-02-22] MEDS: clozapine 100mg tablet PO SCH ×2 (13:15→20:00)
--- NOTE | 2020-02-22 17:44 | NUR ---
Nursing Progress Note: Legal hold: LPS Client on involuntary status for GD Report received from nurse with use of SBAR: LUIS FERNANDO Saab Why are they here: Patient had been discharged previously with follow up at [facility] Team. Upon assessment by the [facility], it was determined patient was not able to obtain, food, long term, or clothing and a 5150 for GD was written. Patient returned within hours of discharge. At time of return patient denied any symptoms related to his mental illness diagnosis of Schizophrenia. He continues to present with cognitive impairment which impedes his ability to care of himself, and requires multiple supports and external structures. Assessment What has happened this shift: Received pt. laying in bed sleeping at the beginning of the shift, he awoke for breakfast and then returned back to bed, continues to sleep until the afternoon which is common for pt. Pt. continues to present as cooperative and pleasant. 1:1 completed at bedside; he continues to deny all MH s/s. When questioned by this press writer regarding discharge, he stated, "I was actually going to leave a few days ago, but a staff member at the facility go the Manley Virus." Pt. denies any episode of SOB this shift, and was up interacting appropriately with others throughout the afternoon. S/I, H/I: Denies A/VH: Pt. denies, no s/s of response to internal stimuli Sleep: Pt. reports he slept well, sleep hours are 5.5 and pt. naps throughout the day ADL's: Independent Group attendance: N/A Were meds taken: Yes Any med S/E: None Mental Status Exam Appearance: Presents as neat, and appropriately dressed. Eye contact: Good Behavior: Cooperative and pleasant Speech: Soft and animated, child-like. Mood: Pleasant Affect: Animated Thought process: WNL Thought Content: Poverty of thought Cognition: A&O X4 Insight: Fair Judgment: Fair Interventions PRN's used: None Therapeutic interventions: Ensured contract for safety, maintained a safe and therapeutic environment, provided clear and simple instructions, monitored behaviors and need for intervention, provided active listening and positive encouragement, and maintained Q 15 min safety checks. Restraints/seclusion/emergency medication: N/A Justification of Continued Inpatient Treatment: Pt. continues to require a safe and supportive environment while he awaits placement. He is recommending that pt. transfer to a [id number].
[2020-02-22 19:51] VITALS: BP 137/83
[2020-02-22] MEDS: atorvastatin 10mg tablet PO SCH (20:00)
[2020-02-22] MEDS: acetaminophen 325mg tablet PO PRN (21:44)
[2020-02-22] MEDS: LORazepam 1 MG tablet PO PRN (22:16)
--- NOTE | 2020-02-22 23:44 | NUR ---
Nursing Progress Note: Legal hold: LPS Client on involuntary status for GD Report received from nurse with use of SBAR: LUIS FERNANDO Saab Why are they here: Patient had been discharged previously with follow up at [facility] Team. Upon assessment by the [facility], it was determined patient was not able to obtain, food, correction, or clothing and a 5150 for GD was written. Patient returned within hours of discharge. At time of return patient denied any symptoms related to his mental illness diagnosis of Schizophrenia. He continues to present with cognitive impairment which impedes his ability to care of himself, and requires multiple supports and external structures. Assessment What has happened this shift: Pt was in rec room at change of shift watching tv. Pt was his normal self, pleasant and cooperative for all care. Pt was not seen responding to internal stimuli but did ask for ativan for anxiety before going to bed. Pt also asked for tylenol for a headache with success. Pt had not other complaints. S/I, H/I: Denies A/VH: Pt. denies, no s/s of response to internal stimuli Sleep: see sleep assessment ADL's: Independent Group attendance: N/A Were meds taken: Yes Any med S/E: None Mental Status Exam Appearance: Presents as neat, and appropriately dressed. Eye contact: Good Behavior: Cooperative and pleasant Speech: quiet, child like Mood: Pleasant Affect: Animated Thought process: WNL Thought Content: Poverty of thought Cognition: A&O X4 Insight: Fair Judgment: Fair Interventions PRN's used: None Therapeutic interventions: Ensured contract for safety, maintained a safe and therapeutic environment, provided clear and simple instructions, monitored behaviors and need for intervention, provided active listening and positive encouragement, and maintained Q 15 min safety checks. Restraints/seclusion/emergency medication: N/A Justification of Continued Inpatient Treatment: Pt. continues to require a safe and supportive environment while he awaits placement. He is recommending that pt. transfer to a [id number].
[2020-02-23 08:00] VITALS: BP 110/63
[2020-02-23] MEDS: pantoprazole 40mg Tablet.DR PO SCH (08:23)
[2020-02-23] MEDS: benztropine 1mg tablet PO SCH ×2 (08:23→19:45)
[2020-02-23] MEDS: docusate sod 100mg capsule PO SCH ×2 (08:23→19:46)
[2020-02-23] MEDS: atomoxetine 40 MG capsule PO SCH (08:24)
[2020-02-23] MEDS: sennosides 8.6mg tablet PO SCH ×2 (08:24→19:46)
[2020-02-23] MEDS: naproxen 500mg tablet PO SCH ×2 (08:25→16:31)
[2020-02-23] MEDS: nicotine 7mg patch - 24hr TD SCH (08:25)
[2020-02-23] MEDS: propranolol 10mg tablet PO PRN (08:27)
[2020-02-23] MEDS: clozapine 25mg tablet PO SCH (14:22)
[2020-02-23] MEDS: clozapine 100mg tablet PO SCH ×2 (14:22→20:00)
--- NOTE | 2020-02-23 15:29 | NUR ---
Nursing Progress Note: Legal hold: LPS Client on involuntary status for GD Report received from nurse with use of SBAR: Avril Mueller RN Why are they here: Patient had been discharged previously with follow up at [facility] Team. Upon assessment by the [facility], it was determined patient was not able to obtain, food, jail, or clothing and a 5150 for GD was written. Patient returned within hours of discharge. At time of return patient denied any symptoms related to his mental illness diagnosis of Schizophrenia. He continues to present with cognitive impairment which impedes his ability to care of himself, and requires multiple supports and external structures. Assessment What has happened this shift: Received pt. laying in bed sleeping at the beginning of the shift, he awoke for breakfast and was compliant with all medications before returning back to bed. Pt's heart rate was slightly elevated, PRN Propranolol administered with effectiveness. Pt. awoke in the afternoon as is his routine, and continued to present as cooperative and pleasant. 1:1 completed, he continues to deny all MH s/s and is not observed to be responding to internal stimuli. No delusional statements made, pt. talks animatedly about how he used to go hiking and skiing, and hopes to be able to do these activities again. Pt. up interacting appropriately with others throughout the afternoon. S/I, H/I: Denies A/VH: Pt. denies, no s/s of response to internal stimuli Sleep: Pt. reports he slept well, sleep hours are 6.5 and pt. naps throughout the morning ADL's: Independent Group attendance: no Were meds taken: Yes Any med S/E: None Mental Status Exam Appearance: Presents as neat, and appropriately dressed. Eye contact: Good Behavior: Cooperative and pleasant Speech: Soft and WNL Mood: Pleasant Affect: Animated Thought process: WNL Thought Content: Linear Cognition: A&O X4 Insight: Fair Judgment: Fair Interventions PRN's used: None Therapeutic interventions: Ensured contract for safety, maintained a safe and therapeutic environment, provided clear and simple instructions, monitored behaviors and need for intervention, provided active listening and positive encouragement, and maintained Q 15 min safety checks. Restraints/seclusion/emergency medication: N/A Justification of Continued Inpatient Treatment: Pt. continues to require a safe and supportive environment while he awaits placement. Addendum: 02/23/20 at 1633 by Conchita Laird RN Pt. became anxious, and pacing in the hallway. Appears to be responding to internal stimuli AEB talking to himself. PRN Ativan administered, will continue to monitor.
[2020-02-23] MEDS: LORazepam 1 MG tablet PO PRN (16:27)
[2020-02-23 19:32] VITALS: BP 128/68
[2020-02-23] MEDS: atorvastatin 10mg tablet PO SCH (20:00)
[2020-02-24] MEDS: LORazepam 1 MG tablet PO PRN (00:31)
[2020-02-24] MEDS: NICOTINE POLACRILEX 2 MG LOZENGE BC PRN ×2 (00:31→15:59)
--- NOTE | 2020-02-24 00:50 | NUR ---
Nursing Progress Note: Legal hold: LPS Client on involuntary status for GD Report received from nurse with use of SBAR: LUIS FERNANDO Saab Why are they here: Patient had been discharged previously with follow up at [facility] Team. Upon assessment by the [facility], it was determined patient was not able to obtain, food, usp, or clothing and a 5150 for GD was written. Patient returned within hours of discharge. At time of return patient denied any symptoms related to his mental illness diagnosis of Schizophrenia. He continues to present with cognitive impairment which impedes his ability to care of himself, and requires multiple supports and external structures. Assessment What has happened this shift: Pt was asleep in his room at change of shift and slept for the first few hours of shift. pt eventually awoke and watched tv until about midnight. As usual, pt was cooperative for all assessments and medications. Pt was seen interacting with others appropriatley and did not seem to be responding to internal stimuli. S/I, H/I: Denies A/VH: Pt. denies, no s/s of response to internal stimuli Sleep: see sleep assessment ADL's: Independent Group attendance: N/A Were meds taken: Yes Any med S/E: None Mental Status Exam Appearance: Presents as neat, and appropriately dressed. Eye contact: Good Behavior: Cooperative and pleasant Speech: quiet, child like Mood: Pleasant Affect: Animated Thought process: WNL Thought Content: Poverty of thought Cognition: A&O X4 Insight: Fair Judgment: Fair Interventions PRN's used: ativan, nicotine lozenge Therapeutic interventions: Ensured contract for safety, maintained a safe and therapeutic environment, provided clear and simple instructions, monitored behaviors and need for intervention, provided active listening and positive encouragement, and maintained Q 15 min safety checks. Restraints/seclusion/emergency medication: N/A Justification of Continued Inpatient Treatment: Pt. continues to require a safe and supportive environment while he awaits placement. He is recommending that pt. transfer to a [id number].
[2020-02-24 08:00] VITALS: BP 100/64
[2020-02-24] MEDS: docusate sod 100mg capsule PO SCH ×2 (08:42→20:21)
[2020-02-24] MEDS: pantoprazole 40mg Tablet.DR PO SCH (08:42)
[2020-02-24] MEDS: benztropine 1mg tablet PO SCH ×2 (08:42→20:21)
[2020-02-24] MEDS: sennosides 8.6mg tablet PO SCH ×2 (08:42→20:22)
[2020-02-24] MEDS: naproxen 500mg tablet PO SCH ×2 (08:42→17:55)
[2020-02-24] MEDS: atomoxetine 40 MG capsule PO SCH (08:42)
[2020-02-24] MEDS: nicotine 7mg patch - 24hr TD SCH (08:43)
[2020-02-24] MEDS: propranolol 10mg tablet PO PRN (08:47)
[2020-02-24] MEDS: clozapine 25mg tablet PO SCH (13:19)
[2020-02-24] MEDS: clozapine 100mg tablet PO SCH ×2 (13:19→20:22)
--- NOTE | 2020-02-24 15:12 | NUR ---
Nursing Progress Note: Legal hold: LPS Client on involuntary status for GD Report received from nurse with use of SBAR: Avril Mueller RN Why are they here: Patient had been discharged previously with follow up at [facility] Team. Upon assessment by the [facility], it was determined patient was not able to obtain, food, mcc, or clothing and a 5150 for GD was written. Patient returned within hours of discharge. At time of return patient denied any symptoms related to his mental illness diagnosis of Schizophrenia. He continues to present with cognitive impairment which impedes his ability to care of himself, and requires multiple supports and external structures. Assessment What has happened this shift: Received pt. laying in bed sleeping at the beginning of the shift, he awoke for breakfast, and afterward returned back to bed as is his routine. Pt's heart rate was again slightly elevated, PRN Propranolol administered with effectiveness. 1:1 completed, pt. continues to deny all MH s/s and is not observed to be responding to internal stimuli this shift. Pt. up interacting appropriately with others throughout the afternoon, and continues to present as cooperative and pleasant. S/I, H/I: Denies A/VH: Pt. denies, no s/s of response to internal stimuli Sleep: Pt. reports he slept well, sleep hours are 4.25 and pt. naps throughout the morning ADL's: Independent Group attendance: no Were meds taken: Yes Any med S/E: None Mental Status Exam Appearance: Presents as neat, and appropriately dressed. Eye contact: Good Behavior: Cooperative and pleasant Speech: Soft and WNL Mood: Pleasant Affect: Animated Thought process: WNL Thought Content: Linear Cognition: A&O X4 Insight: Fair Judgment: Fair Interventions PRN's used: None Therapeutic interventions: Ensured contract for safety, maintained a safe and therapeutic environment, provided clear and simple instructions, monitored behaviors and need for intervention, provided active listening and positive encouragement, and maintained Q 15 min safety checks. Restraints/seclusion/emergency medication: N/A Justification of Continued Inpatient Treatment: Pt. continues to require a safe and supportive environment while he awaits placement.
[2020-02-24 20:00] VITALS: BP 109/76
[2020-02-24] MEDS: atorvastatin 10mg tablet PO SCH (20:20)
--- NOTE | 2020-02-25 01:12 | NUR ---
Nursing Progress Note: Legal hold: LPS Client on involuntary status for GD Report received from nurse with use of SBAR: LUIS FERNANDO Fox Why are they here: Patient had been discharged previously with follow up at [facility] Team. Upon assessment by the [facility], it was determined patient was not able to obtain, food, skilled nursing, or clothing and a 5150 for GD was written. Patient returned within hours of discharge. At time of return patient denied any symptoms related to his mental illness diagnosis of Schizophrenia. He continues to present with cognitive impairment which impedes his ability to care of himself, and requires multiple supports and external structures. Assessment What has happened this shift: Patient was up and in the jama at change og shift happy and excited about a new hat he received as a gift. He went to the rec room and watched movies till snack time then went back to watching movies. Pt continues to be cooperative and happy and med compliant. S/I, H/I: Denies A/VH: Pt. denies, no s/s of response to internal stimuli Sleep: Pt. reports he slept well, sleep hours are 4.25 and pt. naps throughout the morning ADL's: Independent Group attendance: no Were meds taken: Yes Any med S/E: None Mental Status Exam Appearance: Presents as neat, and appropriately dressed. Eye contact: Good Behavior: Cooperative and pleasant Speech: Soft and WNL Mood: Pleasant Affect: Animated Thought process: WNL Thought Content: Linear Cognition: A&O X4 Insight: Fair Judgment: Fair Interventions PRN's used: None Therapeutic interventions: Ensured contract for safety, maintained a safe and therapeutic environment, provided clear and simple instructions, monitored behaviors and need for intervention, provided active listening and positive encouragement, and maintained Q 15 min safety checks. Restraints/seclusion/emergency medication: N/A Justification of Continued Inpatient Treatment: Pt. continues to require a safe and supportive environment while he awaits placement.
[2020-02-25] MEDS: pantoprazole 40mg Tablet.DR PO SCH (07:45)
[2020-02-25] MEDS: docusate sod 100mg capsule PO SCH ×2 (07:45→20:21)
[2020-02-25] MEDS: benztropine 1mg tablet PO SCH ×2 (07:45→20:21)
[2020-02-25] MEDS: sennosides 8.6mg tablet PO SCH ×2 (07:45→20:22)
[2020-02-25] MEDS: naproxen 500mg tablet PO SCH ×2 (07:46→17:17)
[2020-02-25 07:58] VITALS: BP 129/84
[2020-02-25] MEDS: atomoxetine 40 MG capsule PO SCH (08:00)
[2020-02-25] MEDS ORDERED: metoprolol succinate 25mg (24-HOUR) SR. Tablet PO SCH (08:00)
[2020-02-25] MEDS: NICOTINE POLACRILEX 2 MG LOZENGE BC PRN (10:19)
[2020-02-25] MEDS: clozapine 100mg tablet PO SCH ×2 (13:50→20:22)
[2020-02-25] MEDS: clozapine 25mg tablet PO SCH (13:51)
--- NOTE | 2020-02-25 14:39 | NUR ---
Nursing Progress Note: Legal hold: LPS Client on involuntary status for GD Report received from nurse with use of SBAR: LUIS FERNANDO Martinez Why are they here: Patient had been discharged previously with follow up at [facility] Team. Upon assessment by the [facility], it was determined patient was not able to obtain, food, half-way, or clothing and a 5150 for GD was written. Patient returned within hours of discharge. At time of return patient denied any symptoms related to his mental illness diagnosis of Schizophrenia. He continues to present with cognitive impairment which impedes his ability to care of himself, and requires multiple supports and external structures. Assessment What has happened this shift: Received pt. laying in bed sleeping at the beginning of the shift, he awoke for breakfast, and remained up throughout the morning attending the patio with others. 1:1 completed, pt. continues to deny all MH s/s and no delusional statements made. In the afternoon, pt. retreats to bed for a nap, and awakes later to attend snack in the group room. He continues to be pleasant and interacts appropriately with others. S/I, H/I: Denies A/VH: Pt. denies, no s/s of response to internal stimuli Sleep: Pt. reports he slept well, sleep hours are 7.75 ADL's: Independent Group attendance: no Were meds taken: Yes Any med S/E: None Mental Status Exam Appearance: Presents as neat, and appropriately dressed. Eye contact: Good Behavior: Cooperative and pleasant Speech: Soft and WNL Mood: Pleasant Affect: Animated Thought process: WNL Thought Content: Linear Cognition: A&O X4 Insight: Fair Judgment: Fair Interventions PRN's used: None Therapeutic interventions: Ensured contract for safety, maintained a safe and therapeutic environment, provided clear and simple instructions, monitored behaviors and need for intervention, provided active listening and positive encouragement, and maintained Q 15 min safety checks. Restraints/seclusion/emergency medication: N/A Justification of Continued Inpatient Treatment: Pt. continues to require a safe and supportive environment while he awaits placement.
[2020-02-25 20:00] VITALS: BP 123/72
[2020-02-25] MEDS: atorvastatin 10mg tablet PO SCH (20:21)
[2020-02-25] MEDS: LORazepam 1 MG tablet PO PRN (23:02)
--- NOTE | 2020-02-26 00:35 | NUR ---
Nursing Progress Note: Legal hold: LPS Client on involuntary status for GD Report received from nurse with use of SBAR: LUIS FERNANDO Fox Why are they here: Patient had been discharged previously with follow up at [facility] Team. Upon assessment by the [facility], it was determined patient was not able to obtain, food, snf, or clothing and a 5150 for GD was written. Patient returned within hours of discharge. At time of return patient denied any symptoms related to his mental illness diagnosis of Schizophrenia. He continues to present with cognitive impairment which impedes his ability to care of himself, and requires multiple supports and external structures. Assessment What has happened this shift: Patient in the rec room watching tv and social with staff and peers. He is cooperative and pleasant. He is med compliant and still denies any s/s of SI/HI. Pt is showing no signs of responding to internal stimuli this shift. S/I, H/I: Denies A/VH: Pt. denies, no s/s of response to internal stimuli Sleep: Pt. reports he slept well, sleep hours are 7.75 ADL's: Independent Group attendance: no Were meds taken: Yes Any med S/E: None Mental Status Exam Appearance: Presents as neat, and appropriately dressed. Eye contact: Good Behavior: Cooperative and pleasant Speech: Soft and WNL Mood: Pleasant Affect: Animated Thought process: WNL Thought Content: Linear Cognition: A&O X4 Insight: Fair Judgment: Fair Interventions PRN's used: Ativan Therapeutic interventions: Ensured contract for safety, maintained a safe and therapeutic environment, provided clear and simple instructions, monitored behaviors and need for intervention, provided active listening and positive encouragement, and maintained Q 15 min safety checks. Restraints/seclusion/emergency medication: N/A Justification of Continued Inpatient Treatment: Pt. continues to require a safe and supportive environment while he awaits placement.
[2020-02-26] MEDS: sennosides 8.6mg tablet PO SCH ×2 (07:49→20:15)
[2020-02-26] MEDS: docusate sod 100mg capsule PO SCH ×2 (07:49→20:15)
[2020-02-26] MEDS: pantoprazole 40mg Tablet.DR PO SCH (07:49)
[2020-02-26] MEDS: benztropine 1mg tablet PO SCH ×2 (07:49→20:15)
[2020-02-26] MEDS: atomoxetine 40 MG capsule PO SCH (07:50)
[2020-02-26] MEDS: naproxen 500mg tablet PO SCH ×2 (07:50→17:01)
[2020-02-26 07:57] VITALS: BP 95/60
[2020-02-26 08:06] LABS: BASOPHILS % (AUTO) 0.2 % (0-1); EOSINOPHILS # (AUTO) 0.1 X10'3 (0-0.9); EOSINOPHILS % (AUTO) 0.8 % (0-6); HEMATOCRIT 45.2 % (42.0-52.0); HEMOGLOBIN 14.9 g/dl (14.0-17.9); LYMPHOCYTES # (AUTO) 1.3 X10'3 (1.1-4.8); LYMPHOCYTES % (AUTO) 8.3 % (21-51); MEAN CORPUSCULAR HEMOGLOBIN 27.6 PG (27.0-31.0); MEAN CORPUSCULAR HGB CONC 32.9 g/dL (33.0-36.5); MEAN PLATELET VOLUME 8.5 FL (7.4-10.4); MONOCYTES # (AUTO) 1.7 X10'3 (0-0.9); MONOCYTES % (AUTO) 10.6 % (2-12); NEUTROPHILS % (AUTO) 80.1 % (42-75); PLATELET COUNT 200 X10'3 (140-440); RED BLOOD COUNT 5.38 X10'6 (4.70-6.10); RED CELL DISTRIBUTION WIDTH 14.3 % (11.5-14.5); WHITE BLOOD COUNT 16.3 X10'3 (4.5-11.0)
[2020-02-26 08:19] LABS: ALANINE AMINOTRANSFERASE 66 U/L (12-78); ALBUMIN 3.4 G/DL (3.4-5.0); ALBUMIN/GLOBULIN RATIO 1.2 (1.1-1.5); ALKALINE PHOSPHATASE 154 IU/L (46-116); ANION GAP 10 (8-16); ASPARTATE AMINO TRANSFERASE 30 U/L (10-37); BILIRUBIN,TOTAL 0.4 MG/DL (0.1-1.0); BLOOD UREA NITROGEN 18 MG/DL (7-18); BUN/CREATININE RATIO 16.8 (5.4-32.0); CALCIUM 8.7 MG/DL (8.5-10.1); CHLORIDE 109 MMOL/L (99-107); CREATININE 1.07 MG/DL (0.60-1.10); GLUCOSE 135 MG/DL (70-104); POTASSIUM 4.4 MMOL/L (3.5-5.1); SODIUM 145 MMOL/L (135-145); TOTAL CARBON DIOXIDE 25.9 MMOL/L (24-32); TOTAL PROTEIN 6.3 G/DL (6.4-8.2); eGFR 84 ML/MIN
[2020-02-26] MEDS: clozapine 100mg tablet PO SCH ×2 (13:14→20:16)
[2020-02-26] MEDS: clozapine 25mg tablet PO SCH (13:14)
[2020-02-26] MEDS: NICOTINE POLACRILEX 2 MG LOZENGE BC PRN (13:50)
--- NOTE | 2020-02-26 15:56 | NUR ---
Nursing Progress Note: Zachariah Legal hold: LPS Client on involuntary status for GD Report received from nurse with use of SBAR: LUIS FERNANDO Martinez Why are they here: Patient had been discharged previously with follow up at [facility] Team. Upon assessment by the [facility], it was determined patient was not able to obtain, food, senior care, or clothing and a 5150 for GD was written. Patient returned within hours of discharge. At time of return patient denied any symptoms related to his mental illness diagnosis of Schizophrenia. He continues to present with cognitive impairment which impedes his ability to care of himself, and requires multiple supports and external structures. Assessment What has happened this shift: Pleasant and compliant this shift with staff requests. Slept first half of day. Awake for breakfast, lunch and snack time. Requested nicotine lozenge x 1. Denies S/I and/or Karen thoughts. No complaints at all. Smiles and is social with other patients. Pt is showing no signs of responding to internal stimuli this shift. S/I, H/I: Denies A/VH: Denies, no s/s of response to internal stimuli Sleep: Reports he slept well, slept last noc are 7 hrs ADL's: Independent Group attendance: no, slept through group time Were meds taken: Yes Any med S/E: None Mental Status Exam Appearance: Presents as sl disheveled but appropriately dressed. Eye contact: Good Behavior: Cooperative and pleasant Speech: Soft and WNL Mood: Pleasant Affect: Smiles Thought process: WNL Thought Content: Linear Cognition: A&O X4 Insight: Fair Judgment: Fair Interventions PRN's used: Nicotine lozenge x 1 Therapeutic interventions: Ensured contract for safety, maintained a safe and therapeutic environment, provided clear and simple instructions, monitored behaviors and need for intervention, provided active listening and positive encouragement, and maintained Q 15 min safety checks. Restraints/seclusion/emergency medication: N/A Justification of Continued Inpatient Treatment: Pt. continues to require a safe and supportive environment while he awaits placement.
[2020-02-26 20:00] VITALS: BP 98/59
[2020-02-26] MEDS: atorvastatin 10mg tablet PO SCH (20:15)
[2020-02-26 20:36] VITALS: BP 98/55
[2020-02-26] MEDS: LORazepam 1 MG tablet PO PRN (21:19)
--- NOTE | 2020-02-27 01:12 | NUR ---
Nursing Progress Note: Zachariah Legal hold: LPS Client on involuntary status for GD Report received from nurse with use of SBAR: LUIS FERNANDO Fox Why are they here: Patient had been discharged previously with follow up at [facility] Team. Upon assessment by the [facility], it was determined patient was not able to obtain, food, fci, or clothing and a 5150 for GD was written. Patient returned within hours of discharge. At time of return patient denied any symptoms related to his mental illness diagnosis of Schizophrenia. He continues to present with cognitive impairment which impedes his ability to care of himself, and requires multiple supports and external structures. Assessment What has happened this shift: Patient was up and in rec room watching tv at the start of shift. He is social with staff and peers and denies any s/s of SI/HI AH/VH. Pt is pleasant and friendly and is wating placement. S/I, H/I: Denies A/VH: Denies, no s/s of response to internal stimuli Sleep: Reports he slept well, slept last noc are 7 hrs ADL's: Independent Group attendance: no, slept through group time Were meds taken: Yes Any med S/E: None Mental Status Exam Appearance: Presents as sl disheveled but appropriately dressed. Eye contact: Good Behavior: Cooperative and pleasant Speech: Soft and WNL Mood: Pleasant Affect: Smiles Thought process: WNL Thought Content: Linear Cognition: A&O X4 Insight: Fair Judgment: Fair Interventions PRN's used: Ativan Therapeutic interventions: Ensured contract for safety, maintained a safe and therapeutic environment, provided clear and simple instructions, monitored behaviors and need for intervention, provided active listening and positive encouragement, and maintained Q 15 min safety checks. Restraints/seclusion/emergency medication: N/A Justification of Continued Inpatient Treatment: Pt. continues to require a safe and supportive environment while he awaits placement.
[2020-02-27 07:28] VITALS: BP 90/49
[2020-02-27] MEDS: atomoxetine 40 MG capsule PO SCH (08:29)
[2020-02-27] MEDS: naproxen 500mg tablet PO SCH ×2 (08:29→17:51)
[2020-02-27] MEDS: benztropine 1mg tablet PO SCH ×2 (08:29→20:26)
[2020-02-27] MEDS: sennosides 8.6mg tablet PO SCH ×2 (08:29→20:25)
[2020-02-27] MEDS: docusate sod 100mg capsule PO SCH ×2 (08:30→20:26)
[2020-02-27] MEDS: pantoprazole 40mg Tablet.DR PO SCH (08:30)
--- NOTE | 2020-02-27 08:35 | NUR ---
F/u (02/26): PO 75-100% avg heart healthy diet meeting needs. +35.45kg since admit on wt gaining medications in addition to MD diet order for additional protein/salads. LB 02/24. No nutrition concerns at this time. Will continue to monitor. Rec: 1. continue heart healthy diet 2. Double eggs q breakfast, double meat BIDLD; extra fruits/vegetables on meal trays; salad BIDLD all per MD diet order 3. routine bowel care 4. wt per rx Addendum: 02/27/20 at [address] Amended: Links added.
[2020-02-27] MEDS ORDERED: propranolol 10mg tablet PO PRN (10:13)
[2020-02-27] MEDS: clozapine 100mg tablet PO SCH ×2 (13:52→20:27)
[2020-02-27] MEDS: clozapine 25mg tablet PO SCH (13:52)
--- NOTE | 2020-02-27 14:34 | NUR ---
Nursing Progress Note: Zachariah Legal hold: LPS Client on involuntary status for GD Report received from nurse with use of SBAR: RN Why are they here: Patient had been discharged previously with follow up at [facility] Team. Upon assessment by the [place] [facility], it was determined patient was not able to obtain, food, intermediate, or clothing and a 5150 for GD was written. Patient returned within hours of discharge. At time of return patient denied any symptoms related to his mental illness diagnosis of Schizophrenia. He continues to present with cognitive impairment which impedes his ability to care of himself, and requires multiple supports and external structures. Assessment What has happened this shift: Patient laying in bed having multiple tests performed. Pt. States that he feels that he is dying, he is tired, and is having difficulty with breathing and has to sit up from time to time to catch his breath. S/I, H/I: Denies A/VH: Denies, no s/s of response to internal stimuli Sleep: 8.25 hrs NOC. ADL's: Independent Group attendance: no, slept through group time Were meds taken: Yes Any med S/E: Fatigue. Mental Status Exam Appearance: Well groomed, laying in bed. Eye contact: Good Behavior: Cooperative and pleasant Speech: Soft, clear, minimal. Mood: Pleasant Affect: Smiles Thought process: Linear. Thought Content: Feeling better. Cognition: A&O X4 Insight: Fair Judgment: Fair Interventions PRN's used: Therapeutic interventions: Ensured contract for safety, maintained a safe and therapeutic environment, provided clear and simple instructions, monitored behaviors and need for intervention, provided active listening and positive encouragement, and maintained Q 15 min safety checks. Restraints/seclusion/emergency medication: N/A Justification of Continued Inpatient Treatment: Pt. continues to require a safe and supportive environment while he awaits placement.
--- NOTE | 2020-02-27 15:27 | NUR ---
CM Presenting Issues: Pt's awaiting placement, last week SS had consulted [facility] re-assessing pt for board & care placement vs IMD. Interventions: SS had t/c with pt's PG's Conservator-Alisa Sarabia, per t/c PG's office had asked [facility] to start looking for a board & care placement for pt as pt no longer requires IMD services. SS me tw/pt and informed him of the changes to his placement options. Pt was wearing a mask and was happy that the PG's office had agreed to seek board & care placement for him. Plan: SS will continue to check-in & monitor pt's functioning & progress. Shirin Carlos LCSW Addendum: 02/27/20 at 1550 by Shirin Carlos Amended: Links added.
[2020-02-27 16:20] VITALS: BP 119/65
[2020-02-27] MEDS ORDERED: levoFLOXACIN 500mg tablet PO ONE (17:00)
[2020-02-27 20:00] VITALS: BP 125/68
[2020-02-27] MEDS: atorvastatin 10mg tablet PO SCH (20:26)
--- NOTE | 2020-02-28 01:18 | NUR ---
Nursing Progress Note: Zachariah Legal hold: LPS Client on involuntary status for GD Report received from nurse with use of SBAR:Dominique GOULD Why are they here: Patient had been discharged previously with follow up at [facility] Team. Upon assessment by the [facility], it was determined patient was not able to obtain, food, half-way, or clothing and a 5150 for GD was written. Patient returned within hours of discharge. At time of return patient denied any symptoms related to his mental illness diagnosis of Schizophrenia. He continues to present with cognitive impairment which impedes his ability to care of himself, and requires multiple supports and external structures. Assessment What has happened this shift: Patient was in his room at the start of shift.Up for snack and meds. He was out and social with peers then went to the rec room and watched a movie. Pt states he feels much better this evening. S/I, H/I: Denies A/VH: Denies, no s/s of response to internal stimuli Sleep: 8.25 hrs NOC. ADL's: Independent Group attendance: no, slept through group time Were meds taken: Yes Any med S/E: Fatigue. Mental Status Exam Appearance: Well groomed, laying in bed. Eye contact: Good Behavior: Cooperative and pleasant Speech: Soft, clear, minimal. Mood: Pleasant Affect: Smiles Thought process: Linear. Thought Content: Feeling better. Cognition: A&O X4 Insight: Fair Judgment: Fair Interventions PRN's used: Therapeutic interventions: Ensured contract for safety, maintained a safe and therapeutic environment, provided clear and simple instructions, monitored behaviors and need for intervention, provided active listening and positive encouragement, and maintained Q 15 min safety checks. Restraints/seclusion/emergency medication: N/A Justification of Continued Inpatient Treatment: Pt. continues to require a safe and supportive environment while he awaits placement.
[2020-02-28 08:00] VITALS: BP 105/64
[2020-02-28 08:02] LABS: BASOPHILS % (AUTO) 0.4 % (0-1); EOSINOPHILS # (AUTO) 0.2 X10'3 (0-0.9); EOSINOPHILS % (AUTO) 2.6 % (0-6); HEMATOCRIT 45.4 % (42.0-52.0); HEMOGLOBIN 14.9 g/dl (14.0-17.9); LYMPHOCYTES % (AUTO) 31.9 % (21-51); MEAN CORPUSCULAR HGB CONC 32.8 g/dL (33.0-36.5); MEAN CORPUSCULAR VOLUME 85.3 FL (78-98); MEAN PLATELET VOLUME 8.6 FL (7.4-10.4); MONOCYTES # (AUTO) 0.9 X10'3 (0-0.9); MONOCYTES % (AUTO) 9.3 % (2-12); NEUTROPHILS # (AUTO) 5.2 X10'3 (1.8-7.7); NEUTROPHILS % (AUTO) 55.8 % (42-75); PLATELET COUNT 191 X10'3 (140-440); RED BLOOD COUNT 5.33 X10'6 (4.70-6.10); RED CELL DISTRIBUTION WIDTH 14.5 % (11.5-14.5); WHITE BLOOD COUNT 9.3 X10'3 (4.5-11.0)
[2020-02-28] MEDS: docusate sod 100mg capsule PO SCH ×2 (08:08→20:59)
[2020-02-28] MEDS: atomoxetine 40 MG capsule PO SCH (08:08)
[2020-02-28] MEDS: benztropine 1mg tablet PO SCH ×2 (08:09→20:59)
[2020-02-28] MEDS: sennosides 8.6mg tablet PO SCH ×2 (08:09→20:59)
[2020-02-28] MEDS: naproxen 500mg tablet PO SCH ×2 (08:09→16:54)
[2020-02-28] MEDS: pantoprazole 40mg Tablet.DR PO SCH (08:09)
[2020-02-28] MEDS: levoFLOXACIN 500mg tablet PO SCH (10:57)
[2020-02-28] MEDS: clozapine 100mg tablet PO SCH ×2 (14:25→20:59)
[2020-02-28] MEDS: clozapine 25mg tablet PO SCH (14:26)
--- NOTE | 2020-02-28 16:20 | NUR ---
Nursing Progress Note: Zachariah Legal hold: LPS Client on involuntary status for GD Report received from nurse with use of SBAR:Yolanda GOULD Why are they here: Patient had been discharged previously with follow up at [facility] Team. Upon assessment by the [facility], it was determined patient was not able to obtain, food, snf, or clothing and a 5150 for GD was written. Patient returned within hours of discharge. At time of return patient denied any symptoms related to his mental illness diagnosis of Schizophrenia. He continues to present with cognitive impairment which impedes his ability to care of himself, and requires multiple supports and external structures. Assessment What has happened this shift: Client was awake and in his bed to begin the shift. Client states that he is, feeling better but still feels, sick and, worn out. The condition of this client prompted a call to Infection Control this morning. It was relayed to this inspector automatic typewriter that the, Hospitalist has not ordered any test as it pertains to Covid 19. It was explained that this client did not receive testing due to the fact that condition was identified as, bacterial and therefore no testing was needed. This inspector automatic typewriter feels strongly that testing for Covid 19 is indicated in this case. This inspector automatic typewriter has elevated concerns to the Chief of this service. Client was tested this shift and specimen was sent to Lab for processing. Client is amicable to precautions that have been placed on him until a determination has been made as it pertains Covid status. Client has been compliant and amicable with all aspects of his care. S/I, H/I: Denies A/VH: Denies, no s/s of response to internal stimuli Sleep: 8.25 hrs NOC. ADL's: Independent Group attendance: no Were meds taken: Yes Any med S/E: Fatigue. Mental Status Exam Appearance: Well groomed, laying in bed. Eye contact: Good Behavior: Cooperative and pleasant Speech: Soft, clear, minimal. Mood: Pleasant Affect: Smiles Thought process: Linear. Thought Content: Feeling better. Cognition: A&O X4 Insight: Fair Judgment: Fair Interventions PRN's used: Therapeutic interventions: Ensured contract for safety, maintained a safe and therapeutic environment, provided clear and simple instructions, monitored behaviors and need for intervention, provided active listening and positive encouragement, and maintained Q 15 min safety checks. Restraints/seclusion/emergency medication: N/A Justification of Continued Inpatient Treatment: Pt. continues to require a safe and supportive environment while he awaits placement.
[2020-02-28 19:45] VITALS: BP 130/80
[2020-02-28] MEDS: lactobacillus rhamnosus 10,000 MMU CELLS/CAPSULE PO SCH (20:59)
[2020-02-28] MEDS: atorvastatin 10mg tablet PO SCH (21:00)
--- NOTE | 2020-02-28 23:22 | NUR ---
NURSING PROGRESS NOTE Legal hold: LPS conserved Client on involuntary status for GD Report received from Elisabet GOULD with use of SBAR Why are they here: Patient had been discharged previously with follow up at [facility] Team. Upon assessment by the [facility], it was determined patient was not able to obtain, food, alf, or clothing and a 5150 for GD was written. Patient returned within hours of discharge. At time of return patient denied any symptoms related to his mental illness diagnosis of Schizophrenia. He continues to present with cognitive impairment which impedes his ability to care of himself, and requires multiple supports and external structures. Assessment What has happened this shift: Pt walks the halls smiling and laughing at times. He is observed socializing with peers happily. Pt denies SI/HI/AH/VH at this time. He is compliant with wearing a mask due to the pending covid-19 test. He states he is feeling "pretty good." He watches TV until he is ready to go to sleep. S/I, H/I: Denies A/VH: Denies Sleep:see sleep assessment notation ADL's: Independent Group attendance: No Were Meds taken: Yes Any med S/E: No Mental Status Exam Appearance: clean Eye contact: Fair Behavior:paces, smiles, watches TV Speech: Normal Mood: Euthymic Affect: content Thought process: Linear Thought Content: circumstantial Cognition: Alert Insight: Poor Judgment: Poor Interventions PRN's used: Therapeutic interventions: AM assessment; prompts to shower and attend groups and get up for meals; medication administration/education/monitoring, Q 15 min safety checks. Restraints/seclusion/emergency medication: N/A Justification of Continued Inpatient Treatment: Pt is gravely disabled, he is LPS conserved, he continues to need medication adjustment and monitoring and a safe and supportive environment
[2020-02-29] MEDS: LORazepam 1 MG tablet PO PRN ×2 (00:01→21:38)
[2020-02-29] MEDS: sennosides 8.6mg tablet PO SCH ×2 (07:49→21:37)
[2020-02-29] MEDS: lactobacillus rhamnosus 10,000 MMU CELLS/CAPSULE PO SCH ×2 (07:49→21:37)
[2020-02-29] MEDS: naproxen 500mg tablet PO SCH ×2 (07:49→17:39)
[2020-02-29] MEDS: benztropine 1mg tablet PO SCH ×2 (07:49→21:38)
[2020-02-29] MEDS: pantoprazole 40mg Tablet.DR PO SCH (07:49)
[2020-02-29] MEDS: docusate sod 100mg capsule PO SCH ×2 (07:49→21:38)
[2020-02-29] MEDS: atomoxetine 40 MG capsule PO SCH (07:51)
[2020-02-29 08:00] VITALS: BP 112/60
[2020-02-29] MEDS: NICOTINE POLACRILEX 2 MG LOZENGE BC PRN (08:36)
[2020-02-29] MEDS: levoFLOXACIN 500mg tablet PO SCH (11:53)
[2020-02-29] MEDS: clozapine 25mg tablet PO SCH (15:28)
[2020-02-29] MEDS: clozapine 100mg tablet PO SCH ×2 (15:29→21:36)
--- NOTE | 2020-02-29 15:47 | NUR ---
Nursing Progress Note: Zachariah Legal hold: LPS Client on involuntary status for GD Report received from nurse with use of SBAR:Yolanda RN Why are they here: Patient had been discharged previously with follow up at [facility] Team. Upon assessment by the [facility], it was determined patient was not able to obtain, food, detention, or clothing and a 5150 for GD was written. Patient returned within hours of discharge. At time of return patient denied any symptoms related to his mental illness diagnosis of Schizophrenia. He continues to present with cognitive impairment which impedes his ability to care of himself, and requires multiple supports and external structures. Assessment What has happened this shift: Patient was asleep at change of shift and awoken for breakfast. Dr Treviño placed Zachariah on isolation until his Covid-19 test is resulted. Patient states he is a little tired but feeling better. Patient was moved again to room 328 and it was okayed by Paola for patient to have a portable DVD player to watch movies. Patient is very social and does not like being isolated. Patient denies suicidal/homicidal ideation. Patient denies audio/visual hallucinations. S/I, H/I: Denies A/VH: Denies, no s/s of response to internal stimuli Sleep: Several naps during the day. ADL's: Independent Group attendance: no Were meds taken: Yes Any med S/E: None Mental Status Exam Appearance: Well groomed, laying in bed. Eye contact: Good Behavior: Cooperative and pleasant Speech: Soft, clear, minimal. Mood: Pleasant Affect: Smiles Thought process: Linear. Thought Content: Feeling better. Cognition: A&O X4 Insight: Fair Judgment: Fair Interventions PRN's used: Therapeutic interventions: Ensured contract for safety, maintained a safe and therapeutic environment, provided clear and simple instructions, monitored behaviors and need for intervention, provided active listening and positive encouragement, and maintained Q 15 min safety checks. Restraints/seclusion/emergency medication: N/A Justification of Continued Inpatient Treatment: Pt. continues to require a safe and supportive environment while he awaits placement.
[2020-02-29 20:00] VITALS: BP 119/86
[2020-02-29] MEDS: atorvastatin 10mg tablet PO SCH (21:37)
--- NOTE | 2020-03-01 03:47 | NUR ---
Nursing Progress Note: CHALO Legal hold: LPS Client on involuntary status for GD Report received from nurse with use of SBAR: Naga RN Why are they here: Patient had been discharged previously with follow up at [facility] Team. Upon assessment by the [facility], it was determined patient was not able to obtain, food, chcf, or clothing and a 5150 for GD was written. Patient returned within hours of discharge. At time of return patient denied any symptoms related to his mental illness diagnosis of Schizophrenia. He continues to present with cognitive impairment which impedes his ability to care of himself, and requires multiple supports and external structures. Assessment What has happened this shift: Patient is isolated to his room pending a covid19 test. He is cooperative with 1:1 assessment, reports some small coughing fits. Pt's LL lung diminished to auscultation. Pt encouraged to practice deep breathing. Pt states he is feeling "better" than yesterday and does not like being alone in his room. Pt does enjoy the DVD player and says this helps him with "being stuck in here." Patient denies SI/HI/AH/VH. Pt utilizes ativan 2mg PRN at HS med pass. S/I, H/I: Denies A/VH: Denies, no s/s of response to internal stimuli Sleep:see sleep assessment ADL's: Independent Group attendance: no Were meds taken: Yes Any med S/E: None reported, none observed Mental Status Exam Appearance: Well groomed,in own clothing Eye contact: Good Behavior: Cooperative and pleasant Speech: clear Mood: Pleasant Affect: bright Thought process: Linear. Thought Content: being in isolation Cognition: A&O X4 Insight: Fair Judgment: Fair Interventions PRN's used: ativan 2mg Therapeutic interventions: Ensured contract for safety, maintained a safe and therapeutic environment, provided clear and simple instructions, monitored behaviors and need for intervention, provided active listening and positive encouragement, and maintained Q 15 min safety checks. Restraints/seclusion/emergency medication: N/A Justification of Continued Inpatient Treatment: Pt. continues to require a safe and supportive environment while he awaits placement.
[2020-03-01] MEDS: lactobacillus rhamnosus 10,000 MMU CELLS/CAPSULE PO SCH ×2 (07:43→20:55)
[2020-03-01] MEDS: docusate sod 100mg capsule PO SCH ×2 (07:43→20:56)
[2020-03-01] MEDS: benztropine 1mg tablet PO SCH ×2 (07:43→20:56)
[2020-03-01] MEDS: sennosides 8.6mg tablet PO SCH ×2 (07:44→20:56)
[2020-03-01] MEDS: pantoprazole 40mg Tablet.DR PO SCH (07:44)
[2020-03-01] MEDS: atomoxetine 40 MG capsule PO SCH (07:44)
[2020-03-01 08:00] VITALS: BP 99/66
[2020-03-01] MEDS: naproxen 500mg tablet PO SCH ×2 (08:38→17:56)
[2020-03-01] MEDS: levoFLOXACIN 500mg tablet PO SCH (11:16)
[2020-03-01] MEDS: clozapine 100mg tablet PO SCH ×2 (14:16→20:55)
[2020-03-01] MEDS: clozapine 25mg tablet PO SCH (14:16)
[2020-03-01 20:00] VITALS: BP 127/76
[2020-03-01] MEDS: atorvastatin 10mg tablet PO SCH (20:55)
[2020-03-01] MEDS: LORazepam 1 MG tablet PO PRN (20:56)
--- NOTE | 2020-03-02 04:07 | NUR ---
Nursing Progress Note: CHALO Legal hold: LPS Client on involuntary status for GD Report received from LUIS FERNANDO Nielson with use of SBAR: Naga GOULD Why are they here: Patient had been discharged previously with follow up at [facility] Team. Upon assessment by the [facility] [place], it was determined patient was not able to obtain, food, care home, or clothing and a 5150 for GD was written. Patient returned within hours of discharge. At time of return patient denied any symptoms related to his mental illness diagnosis of Schizophrenia. He continues to present with cognitive impairment which impedes his ability to care of himself, and requires multiple supports and external structures. Assessment What has happened this shift: Patient is isolated to his room pending a covid19 test. He is cooperative with 1:1 assessment. Patient listens to his DVD player. Patient denied SOB, S/I, H/I, he denies hallucinations. Patient ambulates in his room without problem. Exam: Patient is oriented X4. SpO2 is 95-96 percent on room air. He is warm and dry with good color. No JVD in a sitting position. Lung malloy are clear and equal bilaterally, he has good tidal volume at the bilateral apex, the bases are diminished bilaterally. No wheezing or rales noted. S1 and S2 heart sounds are present, no murmors are noted. Patients heart rate is tachycardic as usual. Patient refuses his Propranolol Rx because the medication makes his thoughts fuzzy. Patient speaks full sentences, there is no accessary muscle use. Patient denies any chest discomfort. There is no cough this shift. Patient is afebrile. Patient denies any abdominal discomfort, he states normal bowel patterns. Covid 19 test results are due back this Wednesday. Patient ate full meals and snacks. He is medication compliant. Patient smiles frequently. Patient is reminded of social distancing rules as he wants to talk to other patients who pass by his room. At patients request his bed was lowered to a low fowlers position. There is no SOB with bed in that low position. Frequent rounding is being provided for patient safety. S/I, H/I: Denies. A/VH: Denies. Sleep: Doron tally at 0500 hours. ADL's: Independent. Group attendance: No group on nights. Were meds taken: Yes, patient is medication compliant. Any med S/E: None reported, none observed. Mental Status Exam Appearance: Well groomed,in own clothing. Eye contact: Good Behavior: Cooperative and pleasant Speech: Clear, normal rate, rhythm, and tone. Mood: Pleasant. Affect: Bright. Thought process: Linear. Thought Content: Concentrates on being in isolation, hoping to get out. Cognition: A&O X4 Insight: Fair. Judgment: Fair. Interventions PRN's used: Ativan 2mg Therapeutic interventions: Ensured contract for safety, maintained a safe and therapeutic environment, provided clear and simple instructions, monitored behaviors and need for intervention, provided active listening and positive encouragement, and maintained Q 15 min safety checks. Restraints/seclusion/emergency medication: N/A Justification of Continued Inpatient Treatment: Pt. continues to require a safe and supportive environment while he awaits placement.
[2020-03-02 06:00] VITALS: BP 104/53
[2020-03-02 08:00] VITALS: BP 104/53
[2020-03-02] MEDS: benztropine 1mg tablet PO SCH ×2 (08:18→20:55)
[2020-03-02] MEDS: pantoprazole 40mg Tablet.DR PO SCH (08:18)
[2020-03-02] MEDS: sennosides 8.6mg tablet PO SCH ×2 (08:18→20:56)
[2020-03-02] MEDS: naproxen 500mg tablet PO SCH ×2 (08:18→17:38)
[2020-03-02] MEDS: docusate sod 100mg capsule PO SCH ×2 (08:18→20:55)
[2020-03-02] MEDS: atomoxetine 40 MG capsule PO SCH (08:18)
[2020-03-02] MEDS: lactobacillus rhamnosus 10,000 MMU CELLS/CAPSULE PO SCH ×2 (08:18→20:55)
[2020-03-02] MEDS: levoFLOXACIN 500mg tablet PO SCH (11:02)
[2020-03-02 11:13] VITALS: BP 104/53
--- NOTE | 2020-03-02 13:00 | NUR ---
02/26 WBC 16.3, Neutrophils 80.1. CXR positve PNA L. lower lobe pt placed on Levaquin. Blood culture negative p 4 days. 02/28/20 Received information pt to be sent to [facility] not an [facility]MD COVID testing done for placement per Paola, Director SEE Progress Note regarding placement.
[2020-03-02] MEDS: clozapine 100mg tablet PO SCH ×2 (13:36→21:39)
[2020-03-02] MEDS: clozapine 25mg tablet PO SCH (13:36)
--- NOTE | 2020-03-02 15:05 | NUR ---
Nursing Progress Note: CHALO Legal hold: LPS Client on involuntary status for GD Report received from LUIS FERNANDO Lopez with use of SBAR: Naga GOULD Why are they here: Patient had been discharged previously with follow up at [facility] Team. Upon assessment by the [facility], it was determined patient was not able to obtain, food, mcfp, or clothing and a 5150 for GD was written. Patient returned within hours of discharge. At time of return patient denied any symptoms related to his mental illness diagnosis of Schizophrenia. He continues to present with cognitive impairment which impedes his ability to care of himself, and requires multiple supports and external structures. Assessment What has happened this shift: Patient in room isolating. Patient sleeping for most of the shift. Woke up to take medications. Patient friendly towards me and show gratitude towards the staff. Watching shows on tablet when awake and eating lunch in his room S/I, H/I: Denies. A/VH: Denies. Sleep: Sleeping most day ADL's: Independent. Group attendance: No group on nights. Were meds taken: Yes, patient is medication compliant. Any med S/E: None reported, none observed. Mental Status Exam Appearance: Well groomed,in own clothing. Eye contact: Good Behavior: Cooperative and pleasant Speech: Clear, normal rate, rhythm, and tone. Mood: Pleasant. Affect: Bright. Thought process: Linear. Thought Content: Concentrates on being in isolation, hoping to get out. Cognition: A&O X4 Insight: Fair. Judgment: Fair. Interventions PRN's used: Ativan 2mg Therapeutic interventions: Ensured contract for safety, maintained a safe and therapeutic environment, provided clear and simple instructions, monitored behaviors and need for intervention, provided active listening and positive encouragement, and maintained Q 15 min safety checks. Restraints/seclusion/emergency medication: N/A Justification of Continued Inpatient Treatment: Pt. continues to require a safe and supportive environment while he awaits placement.
[2020-03-02 19:00] VITALS: BP 126/79
[2020-03-02] MEDS: atorvastatin 10mg tablet PO SCH (20:56)
[2020-03-02] MEDS: LORazepam 1 MG tablet PO PRN (21:00)
--- NOTE | 2020-03-03 01:30 | NUR ---
Nursing Progress Note: Legal hold: LPS Client on involuntary status for GD Report received from LUIS FERNANDO Nielson with use of SBAR: Naga GOULD Why are they here: Patient had been discharged previously with follow up at [facility] Team. Upon assessment by the [facility], it was determined patient was not able to obtain, food, retirement, or clothing and a 5150 for GD was written. Patient returned within hours of discharge. At time of return patient denied any symptoms related to his mental illness diagnosis of Schizophrenia. He continues to present with cognitive impairment which impedes his ability to care of himself, and requires multiple supports and external structures. Assessment Patient is isolated in his room, we are awaiting results of Covid 19 test. Patient is well oriented this evening. He is friendly, he converses easily with this scenario writer. Patient denies S/I, H/I, he denies hallucinations. The patient is watching DVD's and listening to music. Patient is medication compliant, he eats full meals. Patient denies any SOB or chest discomfort. The patient has a incentive spirometer at beside. Patient was given a nurse teaching by this scenario writer about it's use. He immediately demonstrates his ability to use it. This patient denies any poor exercise intolerance, he is pink, warm, and dry. There is no evidence of accessary muscle use. Capillary refill is less than 2 seconds, patients Sa02 is 95 percent on room air. Patient is afebrile. He denies any abdominal discomfort or diarrhea. The patient presents as content and happy. S/I, H/I: Denies. A/VH: Denies. Sleep: Doron tally at 0500 hours. ADL's: Independent. Group attendance: No group on nights. Were meds taken: Yes, patient is medication compliant. Any med S/E: None reported, none observed. Mental Status Exam Appearance: Well groomed,in own clothing. Eye contact: Good Behavior: Cooperative and pleasant Speech: Clear, normal rate, rhythm, and tone. Mood: Pleasant. Affect: Bright. Thought process: Linear. Thought Content: Focused on watching his movies. Cognition: A&O X4 Insight: Fair. Judgment: Fair. Interventions PRN's used: Ativan 2mg at late evening. Therapeutic interventions: Ensured contract for safety, maintained a safe and therapeutic environment, provided clear and simple instructions, monitored behaviors and need for intervention, provided active listening and positive encouragement, and maintained Q 15 min safety checks. Restraints/seclusion/emergency medication: N/A Justification of Continued Inpatient Treatment: Pt. continues to require a safe and supportive environment while he awaits placement.
--- NOTE | 2020-03-03 07:00 | NUR ---
after reading patient information found out that the patient has been exposed to Covid and is being ruled out. I was very uncomfortable taking care of the patient due to no PPE. called nursing mold construction supervisor and expressed my concern along with my director was told from jeb mold construction supervisor its no big deal he is just getting tested for placement and there is no need for him to be in isolation. I ended up getting supplies to wear but the patient is not in any negative pressure room or isolation and able to walk the halls. There is also no notes stating that the patient is getting placed any where he has been here sine August.
[2020-03-03 08:00] VITALS: BP 101/55
[2020-03-03] MEDS: pantoprazole 40mg Tablet.DR PO SCH (08:20)
[2020-03-03] MEDS: atomoxetine 40 MG capsule PO SCH (08:20)
[2020-03-03] MEDS: clozapine 25mg tablet PO SCH (08:20)
[2020-03-03] MEDS: lactobacillus rhamnosus 10,000 MMU CELLS/CAPSULE PO SCH ×2 (08:20→20:26)
[2020-03-03] MEDS: sennosides 8.6mg tablet PO SCH ×2 (08:21→20:27)
[2020-03-03] MEDS: benztropine 1mg tablet PO SCH ×2 (08:22→20:27)
[2020-03-03] MEDS: docusate sod 100mg capsule PO SCH ×2 (08:22→20:27)
[2020-03-03] MEDS: naproxen 500mg tablet PO SCH ×2 (08:23→17:30)
[2020-03-03] MEDS: levoFLOXACIN 500mg tablet PO SCH (11:00)
[2020-03-03] MEDS: clozapine 100mg tablet PO SCH ×2 (14:14→20:26)
--- NOTE | 2020-03-03 14:38 | NUR ---
Nursing Progress Note: Legal hold: LPS Client on involuntary status for GD Report received from charge nurse, RN with use of SBAR: Why are they here: Patient had been discharged previously with follow up at [facility] Team. Upon assessment by the [facility], it was determined patient was not able to obtain, food, prison, or clothing and a 5150 for GD was written. Patient returned within hours of discharge. At time of return patient denied any symptoms related to his mental illness diagnosis of Schizophrenia. He continues to present with cognitive impairment which impedes his ability to care of himself, and requires multiple supports and external structures. Assessment Patient is isolated in his room, we are awaiting results of Covid 19 test. Patient is well oriented today. patient has been told that he has to stay in his room due to isolation and understands. Patient is very nice and respectful. is having a good day. patient is currently lying in bed S/I, H/I: Denies. A/VH: Denies. Sleep: Doron tally at 0500 hours. ADL's: Independent. Group attendance: No group on nights. Were meds taken: Yes, patient is medication compliant. Any med S/E: None reported, none observed. Mental Status Exam Appearance: Well groomed,in own clothing. Eye contact: Good Behavior: Cooperative and pleasant Speech: Clear, normal rate, rhythm, and tone. Mood: Pleasant. Affect: Bright. Thought process: Linear. Thought Content: Focused on watching his movies. Cognition: A&O X4 Insight: Fair. Judgment: Fair. Interventions PRN's used: Ativan 2mg at late evening. Therapeutic interventions: Ensured contract for safety, maintained a safe and therapeutic environment, provided clear and simple instructions, monitored behaviors and need for intervention, provided active listening and positive encouragement, and maintained Q 15 min safety checks. Restraints/seclusion/emergency medication: N/A Justification of Continued Inpatient Treatment: Pt. continues to require a safe and supportive environment while he awaits placement.
[2020-03-03 20:07] VITALS: BP 121/85
[2020-03-03] MEDS: atorvastatin 10mg tablet PO SCH (20:27)
[2020-03-03] MEDS: LORazepam 1 MG tablet PO PRN (20:28)
--- NOTE | 2020-03-04 01:09 | NUR ---
Nursing Progress Note: Legal hold: LPS Client on involuntary status for GD Report received from charge nurse, RN with use of SBAR: Why are they here: Patient had been discharged previously with follow up at [facility] Team. Upon assessment by the [facility], it was determined patient was not able to obtain, food, fpc, or clothing and a 5150 for GD was written. Patient returned within hours of discharge. At time of return patient denied any symptoms related to his mental illness diagnosis of Schizophrenia. He continues to present with cognitive impairment which impedes his ability to care of himself, and requires multiple supports and external structures. Assessment Patient is Isolated to his room to rule out covid 19 while waiting results. He is handling the isolation and is in a good mood. Med compliant and needed a small amout of reminders to stay in his room. S/I, H/I: Denies. A/VH: Denies. Sleep: Doron tally at 0500 hours. ADL's: Independent. Group attendance: No group on nights. Were meds taken: Yes, patient is medication compliant. Any med S/E: None reported, none observed. Mental Status Exam Appearance: Well groomed,in own clothing. Eye contact: Good Behavior: Cooperative and pleasant Speech: Clear, normal rate, rhythm, and tone. Mood: Pleasant. Affect: Bright. Thought process: Linear. Thought Content: Focused on watching his movies. Cognition: A&O X4 Insight: Fair. Judgment: Fair. Interventions PRN's used: Ativan 2mg Therapeutic interventions: Ensured contract for safety, maintained a safe and therapeutic environment, provided clear and simple instructions, monitored behaviors and need for intervention, provided active listening and positive encouragement, and maintained Q 15 min safety checks. Restraints/seclusion/emergency medication: N/A Justification of Continued Inpatient Treatment: Pt. continues to require a safe and supportive environment while he awaits placement.
[2020-03-04 08:00] VITALS: BP 140/80
[2020-03-04] MEDS: atomoxetine 40 MG capsule PO SCH (08:17)
[2020-03-04] MEDS: docusate sod 100mg capsule PO SCH ×2 (08:17→20:20)
[2020-03-04] MEDS: sennosides 8.6mg tablet PO SCH ×2 (08:17→20:21)
[2020-03-04] MEDS: pantoprazole 40mg Tablet.DR PO SCH (08:17)
[2020-03-04] MEDS: benztropine 1mg tablet PO SCH ×2 (08:17→20:20)
[2020-03-04] MEDS: naproxen 500mg tablet PO SCH ×2 (08:17→16:43)
[2020-03-04] MEDS: lactobacillus rhamnosus 10,000 MMU CELLS/CAPSULE PO SCH ×2 (08:17→20:20)
--- NOTE | 2020-03-04 08:22 | NUR ---
VIKAS received request from [facility] for updated nursing & MD notes as pt's PG requesting [facility] placement for pt. VIKAS faxed packet to [facility]'s office to facilitate placement services. Shirin Carlos LCSW Addendum: 03/05/20 at 0823 by Shirin BEAN Amended: Links added.
--- NOTE | 2020-03-04 09:55 | NUR ---
Nursing Progress Note: Legal hold: LPS Client on involuntary status for GD Report received from nurse with use of SBAR: LUIS FERNANDO Patrick Why are they here: Patient had been discharged previously with follow up at [facility] Team. Upon assessment by the [facility], it was determined patient was not able to obtain, food, longterm, or clothing and a 5150 for GD was written. Patient returned within hours of discharge. At time of return patient denied any symptoms related to his mental illness diagnosis of Schizophrenia. He continues to present with cognitive impairment which impedes his ability to care of himself, and requires multiple supports and external structures. Assessment What has happened this shift: Received pt. laying in bed sleeping at the beginning of the shift, he awoke for breakfast, and remained up throughout the morning interacting with others. Pt's test results are negative for coronavirus, and he has been cleared off isolation, pt. reports understanding and is elated. 1:1 completed, pt. continues to deny all MH s/s and does not appear to be internally preoccupied. Pt. states, "I'm leaving this week, to a new place that just opened up!" There has been no mention of pt. leaving this week, pt. having possible delusional thoughts, will continue to monitor. Pt. attends patio with others, and remains up interacting appropriately. S/I, H/I: Denies A/VH: Pt. denies, no s/s of response to internal stimuli Sleep: Pt. reports he slept well, sleep hours are 7.75 ADL's: Independent Group attendance: N/A, did attend patio Were meds taken: Yes Any med S/E: None Mental Status Exam Appearance: Presents as neat, and appropriately dressed. Eye contact: Good Behavior: Cooperative and pleasant Speech: Soft and WNL Mood: Pleasant Affect: Animated Thought process: WNL Thought Content: Preoccupation with desire to discharge, and possible delusional thoughts Cognition: A&O X4 Insight: Fair Judgment: Fair Interventions PRN's used: None Therapeutic interventions: Ensured contract for safety, maintained a safe and therapeutic environment, discontinued isolation r/t negative coronavirus test results, provided clear and simple instructions, monitored behaviors and need for intervention, provided active listening and positive encouragement, and maintained Q 15 min safety checks. Restraints/seclusion/emergency medication: N/A Justification of Continued Inpatient Treatment: Pt. continues to require a safe and supportive environment, per MIRI Meyer, he still needs to be evaluated for [id number] which is our strongest recommendation.
[2020-03-04] MEDS: NICOTINE POLACRILEX 2 MG LOZENGE BC PRN (10:57)
[2020-03-04] MEDS: levoFLOXACIN 500mg tablet PO SCH (10:57)
[2020-03-04] MEDS: clozapine 100mg tablet PO SCH ×2 (13:32→20:22)
[2020-03-04] MEDS: clozapine 25mg tablet PO SCH (13:32)
[2020-03-04] MEDS: atorvastatin 10mg tablet PO SCH (20:20)
[2020-03-04 20:30] VITALS: BP 122/77
[2020-03-04] MEDS: LORazepam 1 MG tablet PO PRN (21:52)
--- NOTE | 2020-03-05 01:13 | NUR ---
Nursing Progress Note: Legal hold: LPS Client on involuntary status for GD Report received from nurse with use of SBAR: LUSI FERNANDO Martinez Why are they here: Patient had been discharged previously with follow up at [facility] Team. Upon assessment by the [facility], it was determined patient was not able to obtain, food, mcc, or clothing and a 5150 for GD was written. Patient returned within hours of discharge. At time of return patient denied any symptoms related to his mental illness diagnosis of Schizophrenia. He continues to present with cognitive impairment which impedes his ability to care of himself, and requires multiple supports and external structures. Assessment What has happened this shift: Pt up and on the unit social with peers. pt was released from isolation and states he is happy to be out of his room. Pt said the test was negative and I can be out with friends and staff. Pt is calm and cooperative and waiting placement. S/I, H/I: Denies A/VH: Pt. denies, no s/s of response to internal stimuli Sleep: Pt. reports he slept well, sleep hours are 7.75 ADL's: Independent Group attendance: N/A, did attend patio Were meds taken: Yes Any med S/E: None Mental Status Exam Appearance: Presents as neat, and appropriately dressed. Eye contact: Good Behavior: Cooperative and pleasant Speech: Soft and WNL Mood: Pleasant Affect: Animated Thought process: WNL Thought Content: Preoccupation with desire to discharge, and possible delusional thoughts Cognition: A&O X4 Insight: Fair Judgment: Fair Interventions PRN's used: Ativan Therapeutic interventions: Ensured contract for safety, maintained a safe and therapeutic environment, discontinued isolation r/t negative coronavirus test results, provided clear and simple instructions, monitored behaviors and need for intervention, provided active listening and positive encouragement, and maintained Q 15 min safety checks. Restraints/seclusion/emergency medication: N/A Justification of Continued Inpatient Treatment: Pt. continues to require a safe and supportive environment, per MIRI Meyer, he still needs to be evaluated for [id number] which is our strongest recommendation.
[2020-03-05] MEDS: lactobacillus rhamnosus 10,000 MMU CELLS/CAPSULE PO SCH ×2 (08:40→20:25)
[2020-03-05] MEDS: sennosides 8.6mg tablet PO SCH ×2 (08:40→20:25)
[2020-03-05] MEDS: atomoxetine 40 MG capsule PO SCH (08:40)
[2020-03-05] MEDS: naproxen 500mg tablet PO SCH ×2 (08:40→17:51)
[2020-03-05] MEDS: benztropine 1mg tablet PO SCH ×2 (08:40→20:25)
[2020-03-05] MEDS: docusate sod 100mg capsule PO SCH ×2 (08:40→20:25)
[2020-03-05] MEDS: pantoprazole 40mg Tablet.DR PO SCH (08:41)
[2020-03-05 09:00] VITALS: BP 129/67
[2020-03-05] MEDS: levoFLOXACIN 500mg tablet PO SCH (11:19)
[2020-03-05] MEDS: clozapine 100mg tablet PO SCH ×2 (13:14→20:26)
[2020-03-05] MEDS: clozapine 25mg tablet PO SCH (13:14)
--- NOTE | 2020-03-05 14:15 | NUR ---
Nursing Progress Note: Legal hold: LPS Client on involuntary status for GD Report received from nurse with use of SBAR: LUIS FERNANDO Guerrero Why are they here: Patient had been discharged previously with follow up at [facility] Team. Upon assessment by the [facility], it was determined patient was not able to obtain, food, chcf, or clothing and a 5150 for GD was written. Patient returned within hours of discharge. At time of return patient denied any symptoms related to his mental illness diagnosis of Schizophrenia. He continues to present with cognitive impairment which impedes his ability to care of himself, and requires multiple supports and external structures. Assessment What has happened this shift: Received pt. laying in bed sleeping at the beginning of the shift, he awoke for breakfast, however returned back to bed and remained here until the afternoon. 1:1 completed at bedside, pt. continues to deny all MH s/s. No delusional statements or s/s of internal preoccupation exhibited this shift. Pt. is noted to be up interacting appropriately with others on the unit throughout the afternoon. He continues on ABT, but reports he continues to feeling well and V/S remain WNL. S/I, H/I: Denies A/VH: Pt. denies, no s/s of response to internal stimuli Sleep: Pt. reports he slept well, sleep hours are 7. He naps throughout the morning. ADL's: Independent Group attendance: No Were meds taken: Yes Any med S/E: None Mental Status Exam Appearance: Presents as neat, and appropriately dressed. Eye contact: Good Behavior: Cooperative and pleasant Speech: Soft and WNL Mood: Pleasant Affect: Animated Thought process: Linear Thought Content: WNL Cognition: A&O X4 Insight: Fair Judgment: Fair Interventions PRN's used: None Therapeutic interventions: Ensured contract for safety, maintained a safe and therapeutic environment, provided clear and simple instructions, monitored behaviors and need for intervention, provided active listening and positive encouragement, and maintained Q 15 min safety checks. Restraints/seclusion/emergency medication: N/A Justification of Continued Inpatient Treatment: Pt. continues to require a safe and supportive environment while awaiting placement.
[2020-03-05] MEDS: NICOTINE POLACRILEX 2 MG LOZENGE BC PRN (17:55)
[2020-03-05] MEDS: atorvastatin 10mg tablet PO SCH (20:26)
[2020-03-05 20:30] VITALS: BP 129/74
--- NOTE | 2020-03-05 21:25 | NUR ---
Nursing Progress Note Legal hold: LPS Client on LPS conservatorship for being gravely disabled Report received from Juan GOULD with use of SBAR[]. Why are they here: Patient had been discharged previously with follow up at [facility] Team. Upon assessment by the [facility], it was determined patient was not able to obtain, food, usp, or clothing and a 5150 for GD was written. Patient returned within hours of discharge. At time of return patient denied any symptoms related to his mental illness diagnosis of Schizophrenia. He continues to present with cognitive impairment which impedes his ability to care of himself, and requires multiple supports and external structures. Assessment What has happened this shift: The patient has been up and in the general patient areas. He has been social, pleasant and friendly with staff and peers. He stated that he feels his mood is stable and that he is doing well. He is hoping for discharge soon. He denies anxiety. He denies psychotic symptoms. S/I, H/I: Denied by the patient A/VH: Denied by the patient ADL's: Appears clean and well groomed. Stated he showered earlier in the day Were meds taken: The patient was medication compliant. Any med S/E: Increased appetite and weight gain Mental Status Exam Appearance: Appears clean, well groomed. Eye contact: Direct Behavior: Calm, cooperative, friendly Speech: Regular rate and rhythm, spontaneous Mood: "stable" per patient Affect: congruent to mood and current circumstances Thought process: logical Thought Content: focused on being placed Cognition: Alert and oriented Insight: fair Judgment: fair Interventions PRN's used: NA Therapeutic interventions: One to one with the patient to provide medication education and assess for medication side effects. Encouraged him to use IS which he can do correctly and up to 4000 Justification of Continued Inpatient Treatment: The patient is on LPS conservatorship and is pending placement by the public guardians office.
[2020-03-05] MEDS: LORazepam 1 MG tablet PO PRN (22:22)
[2020-03-06] MEDS: lactobacillus rhamnosus 10,000 MMU CELLS/CAPSULE PO SCH ×2 (07:29→21:15)
[2020-03-06] MEDS: atomoxetine 40 MG capsule PO SCH (07:29)
[2020-03-06] MEDS: sennosides 8.6mg tablet PO SCH ×2 (07:29→21:15)
[2020-03-06] MEDS: docusate sod 100mg capsule PO SCH ×2 (07:29→21:15)
[2020-03-06] MEDS: pantoprazole 40mg Tablet.DR PO SCH (07:29)
[2020-03-06] MEDS: benztropine 1mg tablet PO SCH ×2 (07:29→21:15)
[2020-03-06] MEDS: naproxen 500mg tablet PO SCH ×2 (07:35→17:44)
[2020-03-06 08:00] VITALS: BP 115/76
--- NOTE | 2020-03-06 12:50 | NUR ---
F/u (03/06): PO 75-100% avg heart healthy diet meeting needs. +35.45kg since admit on wt gaining medications in addition to MD diet order for additional protein/salads. LBM 03/06. No nutrition concerns at this time. Will continue to monitor. Rec: 1. continue heart healthy diet 2. Double eggs q breakfast, double meat BIDLD; extra fruits/vegetables on meal trays; salad BIDLD all per MD diet order 3. routine bowel care 4. wt per rx Addendum: 03/06/20 at [address] Amended: Links added.
[2020-03-06] MEDS: clozapine 25mg tablet PO SCH (13:43)
[2020-03-06] MEDS: clozapine 100mg tablet PO SCH ×2 (13:43→22:18)
--- NOTE | 2020-03-06 17:50 | NUR ---
Nursing Progress Note: Legal hold: LPS Client on involuntary status for GD Report received from nurse with use of SBAR: LUIS FERNANDO Guerrero Why are they here: Patient had been discharged previously with follow up at [facility] Team. Upon assessment by the [facility], it was determined patient was not able to obtain, food, retirement, or clothing and a 5150 for GD was written. Patient returned within hours of discharge. At time of return patient denied any symptoms related to his mental illness diagnosis of Schizophrenia. He continues to present with cognitive impairment which impedes his ability to care of himself, and requires multiple supports and external structures. Assessment What has happened this shift: Received pt. laying in bed sleeping at the beginning of the shift, he awoke for breakfast and took all medications, however returned back to bed and remained here until 10:30. Pt. was picked up by shannan at 10:55AM for an 11AM machine buffer appointment. Pt. was subsequently late for his appointment and the clinic rescheduled him for April. 1:1 done at bedside. Pt. denies SI/HI, A/V hallucinations. Pt. is calm and cooperative. Pt. isolates to his room most of the afternoon. S/I, H/I: Denies A/VH: Denies Sleep: Pt. napped for 1 hour in AM and 2 hours in afternoon. ADL's: Independent Group attendance: No Were meds taken: Yes Any med S/E: Denies Mental Status Exam Appearance: Presents as neat, and appropriately dressed. Eye contact: Good Behavior: Cooperative and pleasant Speech: WNL Mood: Pleasant Affect: Bright Thought process: Linear Thought Content: WNL Cognition: A&O X4 Insight: Fair Judgment: Fair Interventions PRN's used: None Therapeutic interventions: Ensured contract for safety, maintained a safe and therapeutic environment, provided clear and simple instructions, monitored behaviors and need for intervention, provided active listening and positive encouragement, and maintained Q 15 min safety checks. Restraints/seclusion/emergency medication: N/A Justification of Continued Inpatient Treatment: Pt. continues to require a safe and supportive environment while awaiting placement.
[2020-03-06 20:26] VITALS: BP 129/68
[2020-03-06] MEDS: atorvastatin 10mg tablet PO SCH (21:15)
[2020-03-06] MEDS: NICOTINE POLACRILEX 2 MG LOZENGE BC PRN (21:19)
[2020-03-06] MEDS: LORazepam 1 MG tablet PO PRN (22:18)
--- NOTE | 2020-03-07 01:02 | NUR ---
Nursing Progress Note: Legal hold: LPS Client on involuntary status for GD Report received from nurse with use of SBAR Why are they here: Patient had been discharged previously with follow up at [facility] Team. Upon assessment by the [facility], it was determined patient was not able to obtain, food, senior care, or clothing and a 5150 for GD was written. Patient returned within hours of discharge. At time of return patient denied any symptoms related to his mental illness diagnosis of Schizophrenia. He continues to present with cognitive impairment which impedes his ability to care of himself, and requires multiple supports and external structures. Assessment What has happened this shift: Pt was sitting in chair outside nursing station during shift change. He states that he is doing good. Pt was cooperative during 1:1 physical assessment and took all his HS meds. He denies any A/VH and when asked about this, he looks around as if looking for something. He did not make any delusional statements and was not observed responding to internal stimuli. He also denies any depression or anxiety. He did request Ativan before going to bed. This RN gave Ativan but however pt did not go to sleep for some time. Pt did make some strange requests such as for beer, or cigarettes, long toe nail clippers. S/I, H/I: Denies A/VH: Denies Sleep: Currently sleeping, see sleep assessment for total hours ADL's: Independent Group attendance: No groups this shift Were meds taken: Yes Any med S/E: None observed or reported Mental Status Exam Appearance: Neat, clean and appropriately dressed, appears to be gaining more weight Eye contact: Good Behavior: Cooperative and pleasant, sociable Speech: Normal rate and rhythm Mood: Euthymic Affect: Congruent with mood Thought process: Linear Thought Content: Food, beer, cigarettes Cognition: A&O X4 Insight: Fair Judgment: Fair Interventions PRN's used: Ativan, Nicotine lozenge Therapeutic interventions: Ensured contract for safety, maintained a safe and therapeutic environment, provided clear and simple instructions, monitored behaviors and need for intervention, provided active listening, encouraged independent performance of ADLs, and maintained Q 15 min safety checks. Restraints/seclusion/emergency medication: N/A Justification of Continued Inpatient Treatment: Per MIRI Meyer, pt. continues to require a safe and supportive environment while he awaits placement. He is recommending that pt. transfer to a [id number].
[2020-03-07 07:48] VITALS: BP 95/55
[2020-03-07] MEDS: pantoprazole 40mg Tablet.DR PO SCH (07:49)
[2020-03-07] MEDS: sennosides 8.6mg tablet PO SCH ×2 (07:49→21:32)
[2020-03-07] MEDS: atomoxetine 40 MG capsule PO SCH (07:49)
[2020-03-07] MEDS: docusate sod 100mg capsule PO SCH ×2 (07:49→21:32)
[2020-03-07] MEDS: benztropine 1mg tablet PO SCH ×2 (07:49→21:32)
[2020-03-07] MEDS: lactobacillus rhamnosus 10,000 MMU CELLS/CAPSULE PO SCH ×2 (07:49→21:32)
[2020-03-07] MEDS: naproxen 500mg tablet PO SCH ×2 (07:52→17:46)
--- NOTE | 2020-03-07 12:39 | NUR ---
Nursing Progress Note: Legal hold: LPS Client on involuntary status for GD Report received from nurse with use of SBAR: LUIS FERNANDO Guerrero Why are they here: Patient had been discharged previously with follow up at [facility] Team. [facility], it was determined patient was not able to obtain, food, m[facility]p, or clothing and a 5150 for GD was written. Patient returned within hours of discharge. At time of return patient denied any symptoms related to his mental illness diagnosis of Schizophrenia. He continues to present with cognitive impairment which impedes his ability to care of himself, and requires multiple supports and external structures. Assessment What has happened this shift: Patient is resting in bed peacefully at change of shift. He denies SI/HI and A/VH. He does not get up for breakfast and remains in bed through the afternoon. He appears depressed and states he is due to not knowing when he will leave here. He denies needs at this time. He does not participate in groups or go on the patio. He isolates today S/I, H/I: Denies A/VH: Denies Sleep: Pt. napped majority of shift ADL's: Independent Group attendance: No Were meds taken: Yes Any med S/E: Denies Mental Status Exam Appearance: disheveled and in bed Eye contact: Good Behavior: Cooperative and pleasant, fatigued Speech: WNL Mood: Pleasant Affect: Bright Thought process: Linear Thought Content: WNL Cognition: A&O X4 Insight: Fair Judgment: Fair Interventions PRN's used: None Therapeutic interventions: Ensured contract for safety, maintained a safe and therapeutic environment, provided clear and simple instructions, monitored behaviors and need for intervention, provided active listening and positive encouragement, and maintained Q 15 min safety checks. Restraints/seclusion/emergency medication: N/A Justification of Continued Inpatient Treatment: Pt. continues to require a safe and supportive environment while awaiting placement.
[2020-03-07] MEDS: clozapine 25mg tablet PO SCH (14:40)
[2020-03-07] MEDS: clozapine 100mg tablet PO SCH ×2 (14:41→21:31)
--- NOTE | 2020-03-07 15:00 | NUR ---
CM-Advocacy/Placement Presenting Issues: Pt was declined placement @ [facility] as a result of pt's being classified as a sex offender. Interventions: SS had t/c with Ila, House Diaper Machine Tender @ [facility] and advocated for an in-person interview for pt, per t/c [facility] no longer has a male bed open but encouraged SS to contact them on a weekly basis and if they happen to have an open bed, they would like to reconsider pt for placement. Plan: SS will meet w/pt to engage him in discussion re strategies to support placement. Shirin Carlos LCSW Addendum: 03/07/20 at 1516 by Shirin Carlos Amended: Links added.
--- NOTE | 2020-03-07 16:26 | NUR ---
1:1-CBT Presenting Issues: Pt's been dclined for placement @ 2 local [facility]. SS will inform & provide support for pt to process this news and to create a plan to improve his placement chances. Interventions: SS met w/pt in his room, informed him of the placement declines. Pt asked for reasons why he was declined, SS informed him of the reasons, pt became saddened. SS provided support to encourage pt to reframe this experience and engaged pt in discussion ways to improve his chances for a placement. Pt agreed to allow SS to contact the [facility] facilities where his packet has been sent to and invite them to interview pt, to explain the circumstances associated with pt having to wear an ankle bracelet. Plan: SS will obtain list of facilities where pt's packet's been sent to and contact them to advocate for an interview with pt so pt can present himself to potential placement providers. Shirin Carlos LCSW Addendum: 03/07/20 at 1635 by Shirin Carlos SS Amended: Links added.
[2020-03-07 19:53] VITALS: BP 101/53
[2020-03-07] MEDS: atorvastatin 10mg tablet PO SCH (21:32)
[2020-03-07] MEDS: LORazepam 1 MG tablet PO PRN (21:38)
--- NOTE | 2020-03-08 00:58 | NUR ---
Nursing Progress Note: Legal hold: LPS Client on involuntary status for GD Report received from KERMIT Fox with use of SBAR Why are they here: Patient had been discharged previously with follow up at [facility] Team. Upon assessment by the [facility], it was determined patient was not able to obtain, food, assisted, or clothing and a 5150 for GD was written. Patient returned within hours of discharge. At time of return patient denied any symptoms related to his mental illness diagnosis of Schizophrenia. He continues to present with cognitive impairment which impedes his ability to care of himself, and requires multiple supports and external structures. Assessment What has happened this shift: Pt was sitting outside of nursing station during shift change. States he had a good day but appears somewhat depressed. He took a nap for about an hour but later came out and continued to watch TV. Pt denies any A/H, V/H and states he is doing good just really bored and eager to get out of here. He was cooperative during 1:1 physical assessment and took all his HS medications. Pts interaction with other patients and staff appears to be minimal as he keeps to himself for most of the evening. He requested Ativan before retiring to bed. S/I, H/I: Denies A/VH: Denies Sleep: Currently sleeping, see sleep assessment for total hours ADL's: Independent Group attendance: No groups this shift Were meds taken: Yes Any med S/E: None observed or reported Mental Status Exam Appearance: Neat, clean and appropriately dressed, appears to be gaining more weight Eye contact: Good, direct Behavior: Cooperative and pleasant, calm, keeping to himself Speech: Normal rate and rhythm Mood: "good just bored" appears depressed Affect: Blunted Thought process: Linear Thought Content: Food, snacks, discharge, watching TV Cognition: A&O X4 Insight: Fair Judgment: Fair Interventions PRN's used: Ativan Therapeutic interventions: Ensured contract for safety, maintained a safe and therapeutic environment, provided clear and simple instructions, monitored behaviors and need for intervention, provided active listening, encouraged independent performance of ADLs, and maintained Q 15 min safety checks. Restraints/seclusion/emergency medication: N/A Justification of Continued Inpatient Treatment: Per MIRI Meyer, pt. continues to require a safe and supportive environment while he awaits placement. He is recommending that pt. transfer to a [id number].
[2020-03-08 08:00] VITALS: BP 112/54
[2020-03-08] MEDS: naproxen 500mg tablet PO SCH ×2 (08:31→17:17)
[2020-03-08] MEDS: lactobacillus rhamnosus 10,000 MMU CELLS/CAPSULE PO SCH ×2 (08:32→21:31)
[2020-03-08] MEDS: atomoxetine 40 MG capsule PO SCH (08:32)
[2020-03-08] MEDS: pantoprazole 40mg Tablet.DR PO SCH (08:32)
[2020-03-08] MEDS: sennosides 8.6mg tablet PO SCH ×2 (08:32→21:31)
[2020-03-08] MEDS: docusate sod 100mg capsule PO SCH ×2 (08:32→21:31)
[2020-03-08] MEDS: benztropine 1mg tablet PO SCH ×2 (08:32→21:31)
[2020-03-08] MEDS: NICOTINE POLACRILEX 2 MG LOZENGE BC PRN ×2 (10:35→19:05)
[2020-03-08] MEDS: clozapine 25mg tablet PO SCH (14:29)
[2020-03-08] MEDS: clozapine 100mg tablet PO SCH ×2 (14:29→21:31)
--- NOTE | 2020-03-08 17:00 | NUR ---
NURSING PROGRESS NOTE Legal hold: LPS Client on involuntary status for GD Report received from LUIS FERNANDO Sweet with use of SBAR Why are they here: Patient had been discharged previously with follow up at [facility] Team. Upon assessment by the [facility], it was determined patient was not able to obtain, food, penitentiary, or clothing and a 5150 for GD was written. Patient returned within hours of discharge. At time of return patient denied any symptoms related to his mental illness diagnosis of Schizophrenia. He continues to present with cognitive impairment which impedes his ability to care of himself, and requires multiple supports and external structures. Assessment What has happened this shift: Slept in today, got up for breakfast then back to nap. Did get up to go out on patio with the group. Smiling and animated today, joking with staff and his peers. Played Scary Mommy with staff and peers this afternoon, then watched TV with others. Medication compliant, showered and shaved. Feels a bit down when asked about placement and being turned down by board and cares. S/I, H/I: Denies A/VH: Denies Sleep: napped ADL's: Independent Group attendance: patio Were meds taken: Yes Any med S/E: Denies Mental Status Exam Appearance: clean and neat Eye contact: Good Behavior: Cooperative and pleasant Speech: clear Mood: Pleasant Affect: smiling Thought process: Linear Thought Content: "Just want to get placed" Cognition: Alert Insight: Fair Judgment: Fair Interventions PRN's used: Frandy Nhan Therapeutic interventions: Ensured contract for safety, maintained a safe and therapeutic environment, provided clear and simple instructions, monitored behaviors and need for intervention, provided active listening and positive encouragement, and maintained Q 15 min safety checks. Restraints/seclusion/emergency medication: N/A Justification of Continued Inpatient Treatment: Pt. continues to require a safe and supportive environment while awaiting placement.
[2020-03-08 19:51] VITALS: BP 112/73
[2020-03-08] MEDS: atorvastatin 10mg tablet PO SCH (21:31)
[2020-03-08] MEDS: LORazepam 1 MG tablet PO PRN (21:31)
--- NOTE | 2020-03-09 00:37 | NUR ---
Nursing Progress Note: Legal hold: LPS Client on involuntary status for GD Report received from KERMIT Fox with use of SBAR Why are they here: Patient had been discharged previously with follow up at [facility] Team. Upon assessment by the [facility], it was determined patient was not able to obtain, food, group home, or clothing and a 5150 for GD was written. Patient returned within hours of discharge. At time of return patient denied any symptoms related to his mental illness diagnosis of Schizophrenia. He continues to present with cognitive impairment which impedes his ability to care of himself, and requires multiple supports and external structures. Assessment What has happened this shift: Pt was in rec room during shift change. States he had a good day. He is in a much better mood as he is observed being more animated and hyper today. He was also responding to internal stimuli as he was talking and laughing to himself while pacing the halls. Asked him if he was feeling anxious or agitated due to his increased activity and HR but he denies, stating Im just having fun. He also refused any medication because it makes him sleepy. When asked about hallucinations pt states Not right now, but Im sure theyll come around, they usually come around during a holiday. Its mostly people that . People that I knew some time in the past. Its pretty cool I thing. Pt continued to pace the isles for some time talking and laughing with an unknown person. He states that it was really nice to go outside. He retired to bed after he had a snack. S/I, H/I: Denies A/VH: Denies however pt was observed responding to internal stimuli, talking and laughing to himself. Sleep: Currently sleeping, see sleep assessment for total hours ADL's: Independent Group attendance: No groups this shift Were meds taken: Yes Any med S/E: None observed or reported Mental Status Exam Appearance: Neat, clean and appropriately dressed in personal clothing Eye contact: Good, direct Behavior: Cooperative and pleasant, friendly, more animated and responding to internal stimuli today Speech: Normal rate and rhythm Mood: Appears happy Affect: Bright, congruent with mood Thought process: Circumstantial Thought Content: Food, going outside, wanting to smoke Cognition: A&O X4 Insight: Fair Judgment: Fair Interventions PRN's used: Ativan Therapeutic interventions: Ensured contract for safety, maintained a safe and therapeutic environment, provided clear and simple instructions, monitored behaviors and need for intervention, provided active listening, encouraged independent performance of ADLs, and maintained Q 15 min safety checks. Restraints/seclusion/emergency medication: N/A Justification of Continued Inpatient Treatment: Per MIRI Meyer, pt. continues to require a safe and supportive environment while he awaits placement. He is recommending that pt. transfer to a [id number].
[2020-03-09 07:54] VITALS: BP 97/49
[2020-03-09] MEDS: lactobacillus rhamnosus 10,000 MMU CELLS/CAPSULE PO SCH ×2 (08:03→20:19)
[2020-03-09] MEDS: naproxen 500mg tablet PO SCH ×2 (08:03→17:46)
[2020-03-09] MEDS: docusate sod 100mg capsule PO SCH ×2 (08:03→20:19)
[2020-03-09] MEDS: sennosides 8.6mg tablet PO SCH ×2 (08:03→20:19)
[2020-03-09] MEDS: benztropine 1mg tablet PO SCH ×2 (08:03→20:19)
[2020-03-09] MEDS: atomoxetine 40 MG capsule PO SCH (08:03)
[2020-03-09] MEDS: pantoprazole 40mg Tablet.DR PO SCH (08:03)
[2020-03-09] MEDS: clozapine 25mg tablet PO SCH (14:04)
[2020-03-09] MEDS: clozapine 100mg tablet PO SCH ×2 (14:05→20:21)
--- NOTE | 2020-03-09 17:12 | NUR ---
NURSING PROGRESS NOTE Legal hold: LPS Client on involuntary status for GD Report received from LUIS FERNANDO Rg with use of SBAR Why are they here: Patient had been discharged previously with follow up at [facility] Team. Upon assessment by the [facility], it was determined patient was not able to obtain, food, skilled nursing, or clothing and a 5150 for GD was written. Patient returned within hours of discharge. At time of return patient denied any symptoms related to his mental illness diagnosis of Schizophrenia. He continues to present with cognitive impairment which impedes his ability to care of himself, and requires multiple supports and external structures. Assessment What has happened this shift: Up as usual for breakfast. Good mood as usual. Converses with staff and peers. Discussed strengths with patient including his ability to handle hallucinations, knows when to ask for help and his warm personality. He also had advantage of having a good upbringing by his adoptive parents which has lasting effects. Was able to verbalized understanding of discussion. Understands brown to his success is staying on his medications. (for example, a person who has a heart condition would take medications ) Reassurance offered that he can be successful, but is up to him, which he agreed. Cooperative, kind, polite, but bored and looking forward to placement. S/I, H/I: Denies A/VH: AH, but not bothersome today Sleep: napped ADL's: Independent Group attendance: yes Were meds taken: Yes Any med S/E: Denies Mental Status Exam Appearance: clean and neat Eye contact: Good Behavior: Cooperative and pleasant Speech: clear Mood: Pleasant Affect: smiling Thought process: Linear Thought Content: "Just want to get placed" Cognition: Alert Insight: Fair Judgment: Fair Interventions PRN's used: Frandy Nhan Therapeutic interventions: Ensured contract for safety, maintained a safe and therapeutic environment, provided clear and simple instructions, monitored behaviors and need for intervention, provided active listening and positive encouragement, and maintained Q 15 min safety checks. Restraints/seclusion/emergency medication: N/A Justification of Continued Inpatient Treatment: Pt. continues to require a safe and supportive environment while awaiting placement.
[2020-03-09 20:00] VITALS: BP 125/78
[2020-03-09] MEDS: atorvastatin 10mg tablet PO SCH (20:19)
[2020-03-09] MEDS: NICOTINE POLACRILEX 2 MG LOZENGE BC PRN (21:55)
[2020-03-09] MEDS: LORazepam 1 MG tablet PO PRN (21:55)
--- NOTE | 2020-03-10 00:47 | NUR ---
NURSING PROGRESS NOTE Legal hold: LPS Client on involuntary status for GD Report received from LUIS FERNANDO Rg with use of SBAR Why are they here: Patient had been discharged previously with follow up at [facility] Team. Upon assessment by the [facility], it was determined patient was not able to obtain, food, detention, or clothing and a 5150 for GD was written. Patient returned within hours of discharge. At time of return patient denied any symptoms related to his mental illness diagnosis of Schizophrenia. He continues to present with cognitive impairment which impedes his ability to care of himself, and requires multiple supports and external structures. Assessment What has happened this shift: Patient was in rec room watching tv with some of his peers. He was quiet and seemed preoccupied. During interview he stated that he is ok just board and thinking about being placed some where. He refused snack and stayed in his room till the fireworks started and went to the rec room to watch them with some of his peers. S/I, H/I: Denies A/VH: AH, but not bothersome today Sleep: napped ADL's: Independent Group attendance: yes Were meds taken: Yes Any med S/E: Denies Mental Status Exam Appearance: clean and neat Eye contact: Good Behavior: Cooperative and pleasant Speech: clear Mood: Pleasant Affect: smiling Thought process: Linear Thought Content: "Just want to get placed" Cognition: Alert Insight: Fair Judgment: Fair Interventions PRN's used: Frandy Justin Ativan Therapeutic interventions: Ensured contract for safety, maintained a safe and therapeutic environment, provided clear and simple instructions, monitored behaviors and need for intervention, provided active listening and positive encouragement, and maintained Q 15 min safety checks. Restraints/seclusion/emergency medication: N/A Justification of Continued Inpatient Treatment: Pt. continues to require a safe and supportive environment while awaiting placement.
[2020-03-10 08:00] VITALS: BP 120/59
[2020-03-10] MEDS: naproxen 500mg tablet PO SCH ×2 (08:30→17:26)
[2020-03-10] MEDS: atomoxetine 40 MG capsule PO SCH (08:43)
[2020-03-10] MEDS: sennosides 8.6mg tablet PO SCH ×2 (08:43→20:34)
[2020-03-10] MEDS: pantoprazole 40mg Tablet.DR PO SCH (08:43)
[2020-03-10] MEDS: docusate sod 100mg capsule PO SCH ×2 (08:44→20:33)
[2020-03-10] MEDS: benztropine 1mg tablet PO SCH ×2 (08:44→20:33)
[2020-03-10] MEDS: lactobacillus rhamnosus 10,000 MMU CELLS/CAPSULE PO SCH ×2 (08:44→20:34)
--- NOTE | 2020-03-10 10:55 | NUR ---
Pt denies shoulder pain. Naproxen held
[2020-03-10] MEDS: clozapine 100mg tablet PO SCH ×2 (14:01→20:33)
[2020-03-10] MEDS: clozapine 25mg tablet PO SCH (14:01)
[2020-03-10] MEDS: acetaminophen 325mg tablet PO PRN (15:45)
--- NOTE | 2020-03-10 17:39 | NUR ---
NURSING PROGRESS NOTE Legal hold: LPS Client on involuntary status for GD Report received from KERMIT Pedraza with use of SBAR Why are they here: Patient had been discharged previously with follow up at [facility] Team. Upon assessment by the [facility], it was determined patient was not able to obtain, food, prison, or clothing and a 5150 for GD was written. Patient returned within hours of discharge. At time of return patient denied any symptoms related to his mental illness diagnosis of Schizophrenia. He continues to present with cognitive impairment which impedes his ability to care of himself, and requires multiple supports and external structures. Assessment What has happened this shift: Pt was pleasant and interactive. He took a nap after breakfast. He watched tv and sat in the hallway. He states he is bored. He jokes with RN during the day. In the afternoon he came to RN who was with residents playing [employer] and stated Im sorry to interrupt but can I have a Tylenol for my headache. Tylenol given. He sat in TV room watching a movie with other residents. S/I, H/I: Denies A/VH: Denies Sleep: 6.25 h per sleep assessment ADL's: Independent Group attendance: No groups at this time Were meds taken: Yes Any med S/E: Denies Mental Status Exam Appearance: Wearing his own clothes and hat tipped sideways. Eye contact: Direct. Behavior: Cooperative and pleasant Speech: Slightly mumbled Mood: Ok Affect: Bright Thought process: Linear Thought Content: "Bored" Cognition: AxOx3 Insight: Fair Judgment: Fair Interventions PRN's used: Tylenol for THOMAS Therapeutic interventions: Ensured contract for safety, maintained a safe and therapeutic environment, provided clear and simple instructions, monitored behaviors and need for intervention, provided active listening and positive encouragement, and maintained Q 15 min safety checks. Restraints/seclusion/emergency medication: N/A Justification of Continued Inpatient Treatment: Pt. continues to require a safe and supportive environment while awaiting placement.
[2020-03-10 20:00] VITALS: BP 103/73
[2020-03-10] MEDS: atorvastatin 10mg tablet PO SCH (20:33)
[2020-03-10] MEDS: LORazepam 1 MG tablet PO PRN (22:00)
--- NOTE | 2020-03-11 02:08 | NUR ---
NURSING PROGRESS NOTE Legal hold: LPS Client on involuntary status for GD Report received from KERMIT Fox with use of SBAR Why are they here: Patient had been discharged previously with follow up at [facility] Team. Upon assessment by the [facility], it was determined patient was not able to obtain, food, group home, or clothing and a 5150 for GD was written. Patient returned within hours of discharge. At time of return patient denied any symptoms related to his mental illness diagnosis of Schizophrenia. He continues to present with cognitive impairment which impedes his ability to care of himself, and requires multiple supports and external structures. Assessment What has happened this shift: No real changes in pt bx this shift. He is pleasant and interactive with staff and peers. He sits in the rec room watching tv and states I'm board and want a change. S/I, H/I: Denies A/VH: Denies Sleep: 6.25 h per sleep assessment ADL's: Independent Group attendance: No groups at this time Were meds taken: Yes Any med S/E: Denies Mental Status Exam Appearance: Wearing his own clothes and hat tipped sideways. Eye contact: Direct. Behavior: Cooperative and pleasant Speech: Slightly mumbled Mood: Ok Affect: Bright Thought process: Linear Thought Content: "Bored" Cognition: AxOx3 Insight: Fair Judgment: Fair Interventions PRN's used: Ativan Therapeutic interventions: Ensured contract for safety, maintained a safe and therapeutic environment, provided clear and simple instructions, monitored behaviors and need for intervention, provided active listening and positive encouragement, and maintained Q 15 min safety checks. Restraints/seclusion/emergency medication: N/A Justification of Continued Inpatient Treatment: Pt. continues to require a safe and supportive environment while awaiting placement.
[2020-03-11 07:58] VITALS: BP 103/61
[2020-03-11] MEDS: pantoprazole 40mg Tablet.DR PO SCH (08:06)
[2020-03-11] MEDS: atomoxetine 40 MG capsule PO SCH (08:07)
[2020-03-11] MEDS: lactobacillus rhamnosus 10,000 MMU CELLS/CAPSULE PO SCH ×2 (08:07→20:35)
[2020-03-11] MEDS: docusate sod 100mg capsule PO SCH ×2 (08:07→20:35)
[2020-03-11] MEDS: benztropine 1mg tablet PO SCH ×2 (08:07→20:35)
[2020-03-11] MEDS: sennosides 8.6mg tablet PO SCH ×2 (08:07→20:34)
[2020-03-11] MEDS: naproxen 500mg tablet PO SCH ×2 (08:10→17:34)
--- NOTE | 2020-03-11 10:00 | NUR ---
Group Therapy: Process Group This Clinicians goals for this process group were as follows: (1) Ask scaling questions about patients current anxiety, depression, and irritability symptoms as a check-in. (2) Share psychoeducation about three rules of brief solution-focused problem-solving: A) Stop doing what clearly isnt working, B) Do something different, C) If the different activity works, then do more of it. If it doesnt work, then go back to principle A). (3) Identify examples of thoughts, activities, and behaviors that people do that no longer work for them, or they create more problems than solutions. (4) Identify examples of thoughts, activities, and behaviors that may help create better emotional/behavioral outcomes and lead to good solutions to problems. (5) Engage patients in discussion of the topics shared within the group milieu. Patient identified experiencing the following levels of anxiety, depression, and anger/irritability while present in the group milieu. Anxiety: 09/15 Depression: 09/15 Anger/irritability: 09/15 Patient presented as open and cooperative within the group milieu. Patient was dressed in a nondescript white t-shirt, and black shorts that were appropriate for the milieu. Patient wore a red bandana on his right ankle, and had an ankle monitor on his left ankle. Patient sat quietly in the back of the group room within the milieu. He did not offer any comments freely on the conversation being discussed about brief solution-focused problem-solving thinking, but he did freely offer comments when directly asked of him by this Clinician. When asked directly if he had any, "Problems," in his life, Patient stated, "No." Patient presented as nonobtrusive within the milieu. This Clinician observed him speaking quietly with milieu staff in the back of the room on occasion. Yakov Lopez MA, MATTHIEU Addendum: 03/11/20 at 1159 by Yakov Lopez Amended: Links added.
[2020-03-11] MEDS: NICOTINE POLACRILEX 2 MG LOZENGE BC PRN (11:19)
--- NOTE | 2020-03-11 12:44 | NUR ---
Nursing Progress Note: Legal hold: LPS Client on involuntary status for GD Report received from nurse with use of SBAR: LUIS FERNANDO Martinez Why are they here: Patient had been discharged previously with follow up at [facility] Team. Upon assessment by the [facility] [place], it was determined patient was not able to obtain, food, long term, or clothing and a 5150 for GD was written. Patient returned within hours of discharge. At time of return patient denied any symptoms related to his mental illness diagnosis of Schizophrenia. He continues to present with cognitive impairment which impedes his ability to care of himself, and requires multiple supports and external structures. Assessment What has happened this shift: Received pt. laying in bed sleeping at the beginning of the shift, he awoke for breakfast, and remained up throughout the morning 1:1 completed at bedside, pt. continues to present as animated and pleasant. He denies all MH s/s, and does not exhibit any internal preoccupation. He states animatedly, "They have been letting me go outside and walk around with staff!" Pt. has been focusing on exercising more to improve his health with effectiveness. Pt. later attends group and outside patio with others, he continues to interact appropriately with others throughout the shift. S/I, H/I: Denies A/VH: Pt. denies, no s/s of response to internal stimuli Sleep: Pt. reports he slept well, sleep hours are 6.5 ADL's: Independent Group attendance: Yes Were meds taken: Yes Any med S/E: None Mental Status Exam Appearance: Presents as neat, and appropriately dressed. Eye contact: Good Behavior: Cooperative and pleasant Speech: Soft and WNL Mood: Pleasant Affect: Animated Thought process: Linear Thought Content: WNL Cognition: A&O X4 Insight: Fair Judgment: Fair Interventions PRN's used: Nicotine Lozenge Therapeutic interventions: Ensured contract for safety, maintained a safe and therapeutic environment, provided clear and simple instructions, provided active listening and positive encouragement, and maintained Q 15 min safety checks. Restraints/seclusion/emergency medication: N/A Justification of Continued Inpatient Treatment: Pt. continues to require a safe and supportive environment while awaiting placement.
[2020-03-11] MEDS: clozapine 25mg tablet PO SCH (13:23)
[2020-03-11] MEDS: clozapine 100mg tablet PO SCH ×2 (13:23→20:34)
[2020-03-11] MEDS: LORazepam 1 MG tablet PO PRN ×2 (13:28→22:27)
[2020-03-11 20:00] VITALS: BP 143/93
[2020-03-11] MEDS: atorvastatin 10mg tablet PO SCH (20:35)
[2020-03-11 20:44] VITALS: BP 143/93
--- NOTE | 2020-03-12 01:07 | NUR ---
Nursing Progress Note: Legal hold: LPS Client on involuntary status for GD Report received from nurse with use of SBAR: LUIS FERNANDO Fox Why are they here: Patient had been discharged previously with follow up at [facility] Team. Upon assessment by the [facility] [place], it was determined patient was not able to obtain, food, senior living, or clothing and a 5150 for GD was written. Patient returned within hours of discharge. At time of return patient denied any symptoms related to his mental illness diagnosis of Schizophrenia. He continues to present with cognitive impairment which impedes his ability to care of himself, and requires multiple supports and external structures. Assessment What has happened this shift: Patient a little down this shift after being told they found placement for him. Which turned out to be misinformation. But he remained pleasant and social. He states that he is board but likes the walks he is getting to do but wants to be placed elsewhere. S/I, H/I: Denies A/VH: Pt. denies, no s/s of response to internal stimuli Sleep: Pt. reports he slept well, sleep hours are 6.5 ADL's: Independent Group attendance: Yes Were meds taken: Yes Any med S/E: None Mental Status Exam Appearance: Presents as neat, and appropriately dressed. Eye contact: Good Behavior: Cooperative and pleasant Speech: Soft and WNL Mood: Pleasant Affect: Animated Thought process: Linear Thought Content: WNL Cognition: A&O X4 Insight: Fair Judgment: Fair Interventions PRN's used: Nicotine Lozenge Therapeutic interventions: Ensured contract for safety, maintained a safe and therapeutic environment, provided clear and simple instructions, provided active listening and positive encouragement, and maintained Q 15 min safety checks. Restraints/seclusion/emergency medication: N/A Justification of Continued Inpatient Treatment: Pt. continues to require a safe and supportive environment while awaiting placement.
[2020-03-12 07:43] VITALS: BP 101/55
[2020-03-12] MEDS: atomoxetine 40 MG capsule PO SCH (08:22)
[2020-03-12] MEDS: docusate sod 100mg capsule PO SCH ×2 (08:22→20:21)
[2020-03-12] MEDS: lactobacillus rhamnosus 10,000 MMU CELLS/CAPSULE PO SCH ×2 (08:22→20:21)
[2020-03-12] MEDS: benztropine 1mg tablet PO SCH ×2 (08:22→20:21)
[2020-03-12] MEDS: naproxen 500mg tablet PO SCH ×2 (08:22→17:39)
[2020-03-12] MEDS: pantoprazole 40mg Tablet.DR PO SCH (08:22)
[2020-03-12] MEDS: sennosides 8.6mg tablet PO SCH ×2 (08:22→20:21)
--- NOTE | 2020-03-12 10:00 | NUR ---
Group Therapy: Process Group This Clinicians goals for this process group were as follows: (1) Ask scaling questions about Patients current anxiety, depression, and irritability symptoms as a check-in. (2) Share psychoeducation about the importance of being able to identify regular activities, support people, and thoughts (Anchors) that contribute to mental health well-being and stability. (3) Share psychoeducation about how the gradual removal of said activities, people and behaviors may lead to the erosion of mental well-being and stability. (4) Encourage Patients to identify support anchors that they need to maintain in their life that will promote their mental and emotional well-being. (5) Engage Patients in discussion of the topics shared within the group milieu. Patient identified experiencing the following levels of anxiety, depression, and anger/irritability while present in the group milieu. Anxiety: 09/15 Depression: 09/15 Anger/irritability: 09/15 Patient presented as open and cooperative within the group milieu. Patient wore a nondescript black t-shirt and matching black shorts within the milieu. Patient has an ankle monitor on his left ankle. Patient's thought content was clear and concrete during the process group. Patient's thought process was clear, and coherent. Patient presented as verbally engaged and nonobtrusive within the group milieu. Patient was able to identify several anchoring/grounding interventions that he could utilize to maintain optimal mental health. For example his mentioned: "The [facility]," "The [facility]," "[facility]," and his "[employer]." He also acknowledged the importance of maintaining regular medication compliance and staying connected to, "Safe, and supportive people." This Clinician asked Patient how he felt during episodes in which he had lost all of his moorings, or grounding/anchors, to keep him steady in his mental health. Patient stated that during these times, "I feel like I'm in open air." This Clinician asked Patient it if was hard for him to, "Think," during these episodes, to which Patient responded, "No, it's easier to think." Yakov Lopez MA, [facility] Addendum: 03/12/20 at 1146 by Yakov BEAN Amended: Links added.
[2020-03-12] MEDS: NICOTINE POLACRILEX 2 MG LOZENGE BC PRN (10:57)
--- NOTE | 2020-03-12 11:45 | NUR ---
Nursing Progress Note: Legal hold: LPS Client on involuntary status for GD Report received from nurse with use of SBAR: LUIS FERNANDO Guerrero Why are they here: Patient had been discharged previously with follow up at [facility] Team. Upon assessment by the [facility] [place], it was determined patient was not able to obtain, food, usp, or clothing and a 5150 for GD was written. Patient returned within hours of discharge. At time of return patient denied any symptoms related to his mental illness diagnosis of Schizophrenia. He continues to present with cognitive impairment which impedes his ability to care of himself, and requires multiple supports and external structures. Assessment What has happened this shift: Received pt. laying in bed sleeping at the beginning of the shift, he awoke for breakfast, and then returned to bed as is his usual routine. 1:1 completed at bedside, pt. continues to deny all MH s/s, and reports that he enjoys going for walks around the facility each day with staff to obtain exercise. Pt. later attended outside patio with others and group, he continues to be cooperative, animated, and interact appropriately with others. S/I, H/I: Denies A/VH: Pt. denies, no s/s of response to internal stimuli Sleep: Pt. reports he slept well, sleep hours are 6 ADL's: Independent Group attendance: Yes Were meds taken: Yes Any med S/E: None Mental Status Exam Appearance: Presents as neat, and appropriately dressed. Eye contact: Good Behavior: Cooperative and pleasant Speech: Soft and WNL Mood: Pleasant Affect: Animated Thought process: Linear Thought Content: WNL Cognition: A&O X4 Insight: Fair Judgment: Fair Interventions PRN's used: Nicotine Lozenge Therapeutic interventions: Ensured contract for safety, maintained a safe and therapeutic environment, provided clear and simple instructions, provided active listening and positive encouragement, and maintained Q 15 min safety checks. Restraints/seclusion/emergency medication: N/A Justification of Continued Inpatient Treatment: Pt. continues to require a safe and supportive environment while awaiting placement.
--- NOTE | 2020-03-12 13:00 | NUR ---
F/u (03/12): PO 75-100% avg heart healthy diet meeting needs. +35.45kg since admit on wt gaining medications in addition to MD diet order for additional protein/salads. Per PA note pt continuing program for weight loss and exercise. LBM 03/12. Will continue to monitor. Rec: 1. continue heart healthy diet 2. Double eggs q breakfast, double meat BIDLD; extra fruits/vegetables on meal trays; salad BIDLD all per MD diet order 3. routine bowel care 4. wt per rx Addendum: 03/12/20 at [address] Amended: Links added.
[2020-03-12] MEDS: clozapine 100mg tablet PO SCH ×2 (13:29→20:22)
[2020-03-12] MEDS: clozapine 25mg tablet PO SCH (13:30)
[2020-03-12 20:00] VITALS: BP 127/79
[2020-03-12] MEDS: atorvastatin 10mg tablet PO SCH (20:20)
[2020-03-12] MEDS: LORazepam 1 MG tablet PO PRN (21:54)
--- NOTE | 2020-03-12 23:01 | NUR ---
Nursing Progress Note: Legal hold: LPS Client on involuntary status for GD Report received from nurse with use of SBAR: LUIS FERNANDO Fox Why are they here: Patient had been discharged previously with follow up at [facility] Team. Upon assessment by the [facility] [place], it was determined patient was not able to obtain, food, snf, or clothing and a 5150 for GD was written. Patient returned within hours of discharge. At time of return patient denied any symptoms related to his mental illness diagnosis of Schizophrenia. He continues to present with cognitive impairment which impedes his ability to care of himself, and requires multiple supports and external structures. Assessment What has happened this shift: Patient continues to be friendly and cooperative with staff and peers. He is compliant with meds and has no issues on his outings with staff. He continues to wait for placement. No changes in status. S/I, H/I: Denies A/VH: Pt. denies, no s/s of response to internal stimuli Sleep: Pt. reports he slept well, sleep hours are 6 ADL's: Independent Group attendance: Yes Were meds taken: Yes Any med S/E: None Mental Status Exam Appearance: Presents as neat, and appropriately dressed. Eye contact: Good Behavior: Cooperative and pleasant Speech: Soft and WNL Mood: Pleasant Affect: Animated Thought process: Linear Thought Content: WNL Cognition: A&O X4 Insight: Fair Judgment: Fair Interventions PRN's used: Ativan Therapeutic interventions: Ensured contract for safety, maintained a safe and therapeutic environment, provided clear and simple instructions, provided active listening and positive encouragement, and maintained Q 15 min safety checks. Restraints/seclusion/emergency medication: N/A Justification of Continued Inpatient Treatment: Pt. continues to require a safe and supportive environment while awaiting placement.
[2020-03-13 07:43] VITALS: BP 107/64
[2020-03-13] MEDS: docusate sod 100mg capsule PO SCH ×2 (08:27→21:15)
[2020-03-13] MEDS: naproxen 500mg tablet PO SCH ×2 (08:27→17:31)
[2020-03-13] MEDS: lactobacillus rhamnosus 10,000 MMU CELLS/CAPSULE PO SCH ×2 (08:27→21:16)
[2020-03-13] MEDS: pantoprazole 40mg Tablet.DR PO SCH (08:27)
[2020-03-13] MEDS: atomoxetine 40 MG capsule PO SCH (08:27)
[2020-03-13] MEDS: sennosides 8.6mg tablet PO SCH ×2 (08:27→21:16)
[2020-03-13] MEDS: benztropine 1mg tablet PO SCH ×2 (08:27→21:17)
--- NOTE | 2020-03-13 10:00 | NUR ---
Group Therapy: Process Group This Clinicians goals for this process group were as follows: (1) Ask scaling questions about patients current anxiety, depression, and irritability symptoms as a check-in. (2) Share psychoeducation about emotional relaxation techniques with patients, including information on: mindfulness, meditation controlled breathing, progressive muscle relaxation, guided visualization. (3) Model and practice controlled breathing, progressive muscle relaxation, and guided visualization with patients within the group milieu. (4) Process patients comments and reflections on the before-mentioned activities after they have participated in them. Patient identified experiencing the following levels of anxiety, depression, and anger/irritability while present in the group milieu. Anxiety: 09/15 Depression: 09/15 Anger/irritability: 09/15 Patient presented as open and cooperative within the group milieu. Patient was dressed in nondescript personal clothing that were appropriate for the milieu. Patient presented as verbally engaged and nonobtrusive within the process group. Patient participated in the practice of emotional relaxation techniques in the group milieu, including: controlled breathing, progressive muscle relaxation, and guided visualization. When asked by this Clinician if he could identify a positive, and safe memory that he could visualize during the guided visualization activity, Patient reported attending [employer] was one such memory for him. Patient was able to describe several things that he remembered seeing and hearing during his [employer] attendance that made this a positive memory for him. Yakov Lopez MA, MATTHIEU Addendum: 03/14/20 at 0821 by Yakov Lopez SS Amended: Links added.
--- NOTE | 2020-03-13 13:08 | NUR ---
Nursing Progress Note: Legal hold: LPS Client on involuntary status for GD Report received from nurse with use of SBAR: LUIS FERNANDO Guerrero Why are they here: Patient had been discharged previously with follow up at [facility] Team. Upon assessment by the [facility] [place], it was determined patient was not able to obtain, food, detention, or clothing and a 5150 for GD was written. Patient returned within hours of discharge. At time of return patient denied any symptoms related to his mental illness diagnosis of Schizophrenia. He continues to present with cognitive impairment which impedes his ability to care of himself, and requires multiple supports and external structures. Assessment What has happened this shift: Received pt. laying in bed sleeping at the beginning of the shift, he presented as fatigued this morning, but eventually did get up and eat breakfast. Pt. remained up throughout the shift and was accompanied by security and a tech on his daily walk around the hospital to promote physical activity. 1:1 completed, pt. continues to deny all MH s/s, and is not observed to be responding to any internal stimuli. Later in the afternoon, pt. shows this short story writer a piece of his back molar which chipped off while he was eating a burrito. He denies any pain or discomfort at the area, and he reports that he is still able to chew effectively. MIRI Meyer notified, as well as pt's case management social worker who will contact pt's public guardian to schedule a dental appointment. Will endorse to Noc shift and continue to monitor. S/I, H/I: Denies A/VH: Pt. denies, no s/s of response to internal stimuli Sleep: Pt. reports he slept well, sleep hours are 8 ADL's: Independent Group attendance: Yes Were meds taken: Yes Any med S/E: None Mental Status Exam Appearance: Presents as neat, and appropriately dressed. Eye contact: Good Behavior: Cooperative and pleasant Speech: Soft and WNL Mood: Pleasant Affect: Animated Thought process: Linear Thought Content: WNL Cognition: A&O X4 Insight: Fair Judgment: Fair Interventions PRN's used: Nicotine Lozenge Therapeutic interventions: Ensured contract for safety, maintained a safe and therapeutic environment, provided clear and simple instructions, encouraged physical activity, notified SW regarding pt's need for a dental appointment to be scheduled per pt's public guardian, and maintained Q 15 min safety checks. Restraints/seclusion/emergency medication: N/A Justification of Continued Inpatient Treatment: Pt. continues to require a safe and supportive environment while awaiting placement.
[2020-03-13] MEDS: NICOTINE POLACRILEX 2 MG LOZENGE BC PRN ×2 (13:15→21:18)
[2020-03-13] MEDS: clozapine 100mg tablet PO SCH ×2 (13:15→21:13)
[2020-03-13] MEDS: clozapine 25mg tablet PO SCH (13:15)
--- NOTE | 2020-03-13 16:13 | NUR ---
CRACKED TOOTH: General Internist And Physician Leader, Shirin, called pt's Public Guardian and left a message regarding pt's need for a dental appointment. Piece of cracked tooth is in pt's chart at this time in case it is needed per EVA. Per MIRI Meyer, no further intervention needed at this time, will monitor.
[2020-03-13 20:13] VITALS: BP 107/65
[2020-03-13] MEDS: LORazepam 1 MG tablet PO PRN (21:17)
[2020-03-13] MEDS: atorvastatin 10mg tablet PO SCH (21:17)
--- NOTE | 2020-03-14 00:48 | NUR ---
NURSING PROGRESS NOTE Legal hold: LPS conserved Client on involuntary status for GD Report received from Stu GOULD with use of SBAR Why are they here: Patient had been discharged previously with follow up at [facility] Team. Upon assessment by the [facility] [place], it was determined patient was not able to obtain, food, assisted, or clothing and a 5150 for GD was written. Patient returned within hours of discharge. At time of return patient denied any symptoms related to his mental illness diagnosis of Schizophrenia. He continues to present with cognitive impairment which impedes his ability to care of himself, and requires multiple supports and external structures. Assessment What has happened this shift: PT is sitting in rec room socializing with peers.He smiles and makes good eye contact. He is cooperative with 1:1 assessment and medication compliant. He requests an ativan just before bed, which is given to him. S/I, H/I: Denies A/VH: internal preoccupation at times Sleep:see sleep assessment notation ADL's: Independent Group attendance: No Were Meds taken: Yes Any med S/E: No Mental Status Exam Appearance: clean Eye contact: Fair Behavior:paces, smiles, watches TV Speech: Normal Mood: Euthymic Affect: content Thought process: Linear Thought Content: circumstantial Cognition: Alert Insight: Poor Judgment: Poor Interventions PRN's used: ativan Therapeutic interventions: AM assessment; prompts to shower and attend groups and get up for meals; medication administration/education/monitoring, Q 15 min safety checks. Restraints/seclusion/emergency medication: N/A Justification of Continued Inpatient Treatment: Pt is gravely disabled, he is LPS conserved, he is awaiting placement.
[2020-03-14 07:40] VITALS: BP 130/88
[2020-03-14] MEDS: lactobacillus rhamnosus 10,000 MMU CELLS/CAPSULE PO SCH ×2 (07:59→21:18)
[2020-03-14] MEDS: sennosides 8.6mg tablet PO SCH ×2 (07:59→21:18)
[2020-03-14] MEDS: pantoprazole 40mg Tablet.DR PO SCH (07:59)
[2020-03-14] MEDS: naproxen 500mg tablet PO SCH ×2 (07:59→17:18)
[2020-03-14] MEDS: docusate sod 100mg capsule PO SCH ×2 (07:59→21:18)
[2020-03-14] MEDS: atomoxetine 40 MG capsule PO SCH (07:59)
[2020-03-14] MEDS: benztropine 1mg tablet PO SCH ×2 (07:59→21:18)
--- NOTE | 2020-03-14 09:14 | NUR ---
1:1-CBT Presenting Issues: Pt's recently started walking exercises 5x/week to address issues associated w/obesity. Pt's been compliant, socially appropriate with staff & other patients, utilizing adaptive behavioral coping strategies to manage distress associated w/daily stressors from the [facility] environment. There's concerns for pt slipping into a depressive state as he is fully aware of his role in his current situation and how that is impacting his placement now. Interventions: SS me w/pt & engaged him in 1:1 and provided support for pt to verbalize & process current emotional distress associated w/lengthy hospital stay & placement issues associated w/legal problems prior to treatment. Pt admits that when he thinks about his legal problems and how it came to be he feels bad about what he's done and now worries about it being with him "forever". Plan: SS to contact pt's PO to see if there's any way pt can access a public address systems mechanic to help him address the issues associated with his reg [address] system. Shirin Carlos LCSW Addendum: 03/14/20 at 0930 by Shirin BEAN Amended: Links added.
--- NOTE | 2020-03-14 09:32 | NUR ---
CM-Advocacy Presenting Issues: Conditions of pt's parole services limits his options for placement other than a locked facility @ this time. However, pt has not demonstrated any bxs that warrants a locked facility. Interventions: [facility] has an open male & female bed, SS had t/c with Audrey, Admission Coordinator @ [facility] [phone] and advocated for pt to be considered for placement there. Per t/c Audrey will re-review pt's referral packet & get back to . Plan: will continue to contact potential B&C placement facilities that pt's packet's been sent to & advocate for his acceptance. Shirin Carlos LCSW Addendum: 03/14/20 at 0937 by Shirin Carlos Amended: Links added.
[2020-03-14] MEDS: clozapine 100mg tablet PO SCH ×2 (13:59→21:18)
[2020-03-14] MEDS: clozapine 25mg tablet PO SCH (13:59)
--- NOTE | 2020-03-14 14:20 | NUR ---
NURSING PROGRESS NOTE Legal hold: LPS conserved Client on involuntary status for GD Report received from LUIS FERNANDO Guerrero with use of SBAR Why are they here: Patient had been discharged previously with follow up at [facility] Team. Upon assessment by the [facility] [place], it was determined patient was not able to obtain, food, residential, or clothing and a 5150 for GD was written. Patient returned within hours of discharge. At time of return patient denied any symptoms related to his mental illness diagnosis of Schizophrenia. He continues to present with cognitive impairment which impedes his ability to care of himself, and requires multiple supports and external structures. Assessment What has happened this shift: Up on unit at shift change, then lays back down until breakfast. Depressed mood with pleasant affect. Reports feeling "the same" as he is waiting for placement, "bored", and "not understanding why it takes so long." Talks with others and jokes with staff, smiling and cracking jokes sometimes, as when there was another patient acting out/childish/yelling and this patient states, "I [facility] back to [facility] now." S/I, H/I: Denies A/VH: Denies Sleep: naps ADL's: Independent Group attendance: Patio Were Meds taken: Yes Any med S/E: No Mental Status Exam Appearance: clean and neat Eye contact: Fair Behavior: cooperative Speech: clear Mood: Euthymic Affect: smiling at times Thought process: Linear Thought Content: circumstantial Cognition: Alert Insight: Poor Judgment: Poor Interventions PRN's used: None Therapeutic interventions: AM assessment; prompts to shower and attend groups and get up for meals; medication administration/education/monitoring, Q 15 min safety checks. Restraints/seclusion/emergency medication: N/A Justification of Continued Inpatient Treatment: Pt is gravely disabled, he is LPS conserved, he is awaiting placement.
[2020-03-14 19:00] VITALS: BP 123/67
[2020-03-14] MEDS: NICOTINE POLACRILEX 2 MG LOZENGE BC PRN (19:18)
--- NOTE | 2020-03-14 19:19 | NUR ---
Patient is ambulating hallways and visiting with other patients. Patient is smiling. He denies distress. Patient asks for and is given a Nicotine 2mg lozenge.
[2020-03-14] MEDS: atorvastatin 10mg tablet PO SCH (21:18)
--- NOTE | 2020-03-14 23:10 | NUR ---
NURSING PROGRESS NOTE Legal hold: LPS conserved Client on involuntary status for GD Report received from , RN with use of SBAR Why are they here: Patient had been discharged previously with follow up at [facility] Team. Upon assessment by the [facility], it was determined patient was not able to obtain, food, long-term, or clothing and a 5150 for GD was written. Patient returned within hours of discharge. At time of return patient denied any symptoms related to his mental illness diagnosis of Schizophrenia. He continues to present with cognitive impairment which impedes his ability to care of himself, and requires multiple supports and external structures. Assessment What has happened this shift: Patient was up visiting other patients and watching television until bedtime. Patient is friendly, he smiles often. Patient is well oriented. Patient tells this literary writer that he is excited because [facility] Easton in [place] is going to interview him soon for possible placement. This patient denies S/I, H/I, or any hallucinations. Patient describes the josé miguel of getting to go on a walk earlier with staff. Patient is medication compliant. S/I, H/I: Denies. A/VH: Denies. Sleep: Will tally at 0500. Sleeping well now. ADL's: Independent. Group attendance: No group on nights. Were Meds taken: Yes, medication compliant. Any med S/E: No Mental Status Exam Appearance: Well groomed, clean clothes. Eye contact: Good. Behavior: Cooperative and friendly. Speech: Clear, animated at times. Mood: Euthymic. Affect: Broad. Thought process: Linear. Thought Content: Excited about upcoming interview for placement. Cognition: Alert. Insight: Poor. Judgment: Poor. Interventions PRN's used: None Therapeutic interventions: AM assessment; prompts to shower and attend groups and get up for meals; medication administration/education/monitoring, Q 15 min safety checks. Restraints/seclusion/emergency medication: N/A Justification of Continued Inpatient Treatment: Pt is gravely disabled, he is LPS conserved, he is awaiting placement.
[2020-03-15] MEDS: acetaminophen 325mg tablet PO PRN (07:11)
[2020-03-15] MEDS: pantoprazole 40mg Tablet.DR PO SCH (08:00)
[2020-03-15] MEDS: lactobacillus rhamnosus 10,000 MMU CELLS/CAPSULE PO SCH ×2 (08:00→20:53)
[2020-03-15] MEDS: naproxen 500mg tablet PO SCH ×2 (08:00→17:01)
[2020-03-15] MEDS: benztropine 1mg tablet PO SCH ×2 (08:00→20:53)
[2020-03-15] MEDS: docusate sod 100mg capsule PO SCH ×2 (08:00→20:53)
[2020-03-15] MEDS: sennosides 8.6mg tablet PO SCH ×2 (08:00→20:53)
[2020-03-15] MEDS: atomoxetine 40 MG capsule PO SCH (08:00)
[2020-03-15 08:40] VITALS: BP 122/66
[2020-03-15] MEDS: clozapine 25mg tablet PO SCH (14:40)
[2020-03-15] MEDS: clozapine 100mg tablet PO SCH ×2 (14:40→21:18)
--- NOTE | 2020-03-15 14:45 | NUR ---
NURSING PROGRESS NOTE Legal hold: LPS conserved Client on involuntary status for GD Report received from LUIS FERNANDO Sweet with use of SBAR Why are they here: Patient had been discharged previously with follow up at [facility] Team. Upon assessment by the [facility], it was determined patient was not able to obtain, food, jail, or clothing and a 5150 for GD was written. Patient returned within hours of discharge. At time of return patient denied any symptoms related to his mental illness diagnosis of Schizophrenia. He continues to present with cognitive impairment which impedes his ability to care of himself, and requires multiple supports and external structures. Assessment What has happened this shift: Asleep at shift change, had to be awakened for breakfast. Depressed mood with pleasant affect. Reports feeling "just bored and I don't know why it's taking so long." Up and interacting with others more today. Smiling and pleasant. Denies SI, AH's not bothersome today per patient. S/I, H/I: Denies A/VH: Denies Sleep: naps ADL's: Independent Group attendance: No Were Meds taken: Yes Any med S/E: No Mental Status Exam Appearance: clean and neat Eye contact: Fair Behavior: cooperative Speech: clear Mood: Euthymic Affect: smiling Thought process: Linear Thought Content: circumstantial Cognition: Alert Insight: fair Judgment: good Interventions PRN's used: None Therapeutic interventions: AM assessment; prompts to shower and attend groups and get up for meals; medication administration/education/monitoring, Q 15 min safety checks. Restraints/seclusion/emergency medication: N/A Justification of Continued Inpatient Treatment: Pt is gravely disabled, he is LPS conserved, he is awaiting placement.
[2020-03-15] MEDS: NICOTINE POLACRILEX 2 MG LOZENGE BC PRN (15:31)
[2020-03-15 20:01] VITALS: BP 125/80
[2020-03-15] MEDS: atorvastatin 10mg tablet PO SCH (20:53)
[2020-03-15] MEDS: LORazepam 1 MG tablet PO PRN (20:53)
--- NOTE | 2020-03-16 00:26 | NUR ---
NURSING PROGRESS NOTE Legal hold: LPS conserved Client on involuntary status for GD Report received from LUIS FERNANDO Martinez with use of SBAR Why are they here: Patient had been discharged previously with follow up at [facility] Team. Upon assessment by the [facility], it was determined patient was not able to obtain, food, prison, or clothing and a 5150 for GD was written. Patient returned within hours of discharge. At time of return patient denied any symptoms related to his mental illness diagnosis of Schizophrenia. He continues to present with cognitive impairment which impedes his ability to care of himself, and requires multiple supports and external structures. Assessment What has happened this shift: Patient is upbeat, watching television, socializing with others. Patient tells this literary writer he is still awaiting his interview for placement. Patient smiles and is quite popular with other patients. Patient denies H/I, S/I, or any hallucinations. Patient tells this literary writer he was able to walk around the hospital again to day, Patient states he had a good time. This patient is without complaint save for feeling mild anxiety at sleep time. Patient requests and was given Ativan. S/I, H/I: Denies. A/VH: Denies. Sleep: Patient sleeps well after medication pass. ADL's: Independent. Group attendance: None on nights. Were Meds taken: Yes. Any med S/E: None noted. Mental Status Exam Appearance: Clean and neat. Eye contact: Good. Behavior: Cooperative and friendly. Speech: Normal rate, rhythm, and tone. Mood: Euthymic. Affect: Happy. Thought process: Linear. Thought Content: Circumstantial. Cognition: Well oriented. Insight: Fair. Judgment:Good. Interventions PRN's used: Ativan. Therapeutic interventions: AM assessment; prompts to shower and attend groups and get up for meals; medication administration/education/monitoring, Q 15 min safety checks. Restraints/seclusion/emergency medication: N/A Justification of Continued Inpatient Treatment: Pt is gravely disabled, he is LPS conserved, he is awaiting placement.
[2020-03-16] MEDS: pantoprazole 40mg Tablet.DR PO SCH (08:38)
[2020-03-16] MEDS: docusate sod 100mg capsule PO SCH ×2 (08:38→19:09)
[2020-03-16] MEDS: naproxen 500mg tablet PO SCH ×2 (08:38→17:45)
[2020-03-16] MEDS: benztropine 1mg tablet PO SCH ×2 (08:38→19:08)
[2020-03-16] MEDS: lactobacillus rhamnosus 10,000 MMU CELLS/CAPSULE PO SCH ×2 (08:38→19:09)
[2020-03-16] MEDS: sennosides 8.6mg tablet PO SCH ×2 (08:38→19:09)
[2020-03-16] MEDS: atomoxetine 40 MG capsule PO SCH (08:52)
[2020-03-16 09:12] VITALS: BP 107/62
[2020-03-16] MEDS: acetaminophen 325mg tablet PO PRN (10:48)
[2020-03-16] MEDS: clozapine 25mg tablet PO SCH (14:09)
[2020-03-16] MEDS: clozapine 100mg tablet PO SCH ×2 (14:09→20:02)
--- NOTE | 2020-03-16 15:45 | NUR ---
NURSING PROGRESS NOTE Legal hold: LPS conserved Client on involuntary status for GD Report received from LUIS FERNANDO Sweet with use of SBAR Why are they here: Patient had been discharged previously with follow up at [facility] Team. Upon assessment by the [facility], it was determined patient was not able to obtain, food, long term, or clothing and a 5150 for GD was written. Patient returned within hours of discharge. At time of return patient denied any symptoms related to his mental illness diagnosis of Schizophrenia. He continues to present with cognitive impairment which impedes his ability to care of himself, and requires multiple supports and external structures. Assessment What has happened this shift: Asleep at shift change, had to be awakened for breakfast, ate and took meds then back to bed sleepy. When up, went to patio with his peers and stated, "It was good to get outside." Seemed less depressed today, engaged more with others, smiling and watching funny movies together. AH's not bothering him today. Had THOMAS in morning stating, "the head of my bed is slanting downward and it gives me a THOMAS." HOB lifted. S/I, H/I: Denies A/VH: Denies Sleep: naps ADL's: Independent Group attendance: yes Were Meds taken: Yes Any med S/E: No Mental Status Exam Appearance: clean and neat Eye contact: good Behavior: cooperative Speech: clear Mood: Euthymic Affect: smiling Thought process: Linear Thought Content: circumstantial Cognition: Alert Insight: fair Judgment: good Interventions PRN's used: Tylenol Therapeutic interventions: AM assessment; prompts to shower and attend groups and get up for meals; medication administration/education/monitoring, Q 15 min safety checks. Restraints/seclusion/emergency medication: N/A Justification of Continued Inpatient Treatment: Pt is gravely disabled, he is LPS conserved, he is awaiting placement.
[2020-03-16] MEDS: atorvastatin 10mg tablet PO SCH (20:02)
[2020-03-16 20:13] VITALS: BP 119/85
[2020-03-16] MEDS: LORazepam 1 MG tablet PO PRN (20:43)
--- NOTE | 2020-03-16 22:54 | NUR ---
NURSING PROGRESS NOTE Legal hold: LPS conserved Client on involuntary status for GD Report received from LUIS FERNANDO Martinez with use of SBAR Why are they here: Patient had been discharged previously with follow up at [facility] Team. Upon assessment by the [facility], it was determined patient was not able to obtain, food, jail, or clothing and a 5150 for GD was written. Patient returned within hours of discharge. At time of return patient denied any symptoms related to his mental illness diagnosis of Schizophrenia. He continues to present with cognitive impairment which impedes his ability to care of himself, and requires multiple supports and external structures. Assessment What has happened this shift: Pt up and active on unit all evening. Pt appeared to be in a happy mood. pt attended republican and had pizza and ice cream. Pt denied hearing any voices today and reported that he was in a good mood. Pt was not seen responding to internal stimuli. S/I, H/I: Denies. A/VH: Denies. Sleep: see sleep assessment ADL's: Independent. Group attendance: attended republican Were Meds taken: Yes. Any med S/E: None noted. Mental Status Exam Appearance: Clean and neat. Eye contact: Good. Behavior: Cooperative and friendly. Speech: Normal rate, rhythm, and tone. Mood: Euthymic. Affect: Happy. Thought process: Linear. Thought Content: Circumstantial. Cognition: Well oriented. Insight: Fair. Judgment:Good. Interventions PRN's used: Ativan. Therapeutic interventions: AM assessment; prompts to shower and attend groups and get up for meals; medication administration/education/monitoring, Q 15 min safety checks. Restraints/seclusion/emergency medication: N/A Justification of Continued Inpatient Treatment: Pt is gravely disabled, he is LPS conserved, he is awaiting placement.
[2020-03-17 07:11] LABS: BASOPHILS % (AUTO) 0.6 % (0-1); EOSINOPHILS # (AUTO) 0.2 X10'3 (0-0.9); EOSINOPHILS % (AUTO) 2.5 % (0-6); HEMATOCRIT 43.6 % (42.0-52.0); HEMOGLOBIN 14.3 g/dl (14.0-17.9); LYMPHOCYTES # (AUTO) 2.1 X10'3 (1.1-4.8); LYMPHOCYTES % (AUTO) 28.7 % (21-51); MEAN CORPUSCULAR HEMOGLOBIN 27.4 PG (27.0-31.0); MEAN CORPUSCULAR HGB CONC 32.7 g/dL (33.0-36.5); MEAN CORPUSCULAR VOLUME 83.8 FL (78-98); MEAN PLATELET VOLUME 8.3 FL (7.4-10.4); MONOCYTES # (AUTO) 0.8 X10'3 (0-0.9); MONOCYTES % (AUTO) 10.8 % (2-12); NEUTROPHILS # (AUTO) 4.3 X10'3 (1.8-7.7); NEUTROPHILS % (AUTO) 57.4 % (42-75); PLATELET COUNT 198 X10'3 (140-440); RED CELL DISTRIBUTION WIDTH 14.2 % (11.5-14.5); WHITE BLOOD COUNT 7.4 X10'3 (4.5-11.0)
[2020-03-17 07:30] VITALS: BP 121/60
[2020-03-17] MEDS: DOXYCYCLINE 100MG CAPSULE PO SCH (08:01)
[2020-03-17] MEDS: docusate sod 100mg capsule PO SCH ×2 (08:01→20:15)
[2020-03-17] MEDS: benztropine 1mg tablet PO SCH ×2 (08:02→20:15)
[2020-03-17] MEDS: sennosides 8.6mg tablet PO SCH ×2 (08:02→20:15)
[2020-03-17] MEDS: pantoprazole 40mg Tablet.DR PO SCH (08:02)
[2020-03-17] MEDS: lactobacillus rhamnosus 10,000 MMU CELLS/CAPSULE PO SCH ×2 (08:02→20:15)
[2020-03-17] MEDS: atomoxetine 40 MG capsule PO SCH (08:02)
[2020-03-17] MEDS: naproxen 500mg tablet PO SCH ×2 (08:05→17:50)
[2020-03-17] MEDS: calcium carbonate 500mg chew tablet PO PRN ×2 (10:51→23:50)
[2020-03-17] MEDS: clozapine 100mg tablet PO SCH ×2 (13:11→20:16)
[2020-03-17] MEDS: NICOTINE POLACRILEX 2 MG LOZENGE BC PRN (13:12)
[2020-03-17] MEDS: clozapine 25mg tablet PO SCH (13:12)
--- NOTE | 2020-03-17 18:06 | NUR ---
NURSING PROGRESS NOTE Legal hold: LPS conserved Client on involuntary status for GD Report received from Avrli Garcia RN with use of SBAR Why are they here: Patient had been discharged previously with follow up at [facility] Team. Upon assessment by the [facility], it was determined patient was not able to obtain, food, mcc, or clothing and a 5150 for GD was written. Patient returned within hours of discharge. At time of return patient denied any symptoms related to his mental illness diagnosis of Schizophrenia. He continues to present with cognitive impairment which impedes his ability to care of himself, and requires multiple supports and external structures. Assessment What has happened this shift: Pt. asleep at start of shift. Pt. awake for breakfast and took medications. Pt. is social at breakfast, talking with peers and staff and in a jovial mood. Pt. went to sleep afterward. 1:1 done at bedside, pt. denies SI/HI, A/V hallucinations. Pt. taken for a walk outside escorted by Handle and Pix[employer] tech. Pt. focused on food. Pt. napped in the afternoon. S/I, H/I: Denies. A/VH: Denies. Sleep: Pt. napped for 2 hours in the AM and in the afternoon. ADL's: Independent. Group attendance: N/A Were Meds taken: Yes. Any med S/E: None Mental Status Exam Appearance: Clean and neat. Eye contact: Good. Behavior: Cooperative and friendly. Speech: Normal rate, rhythm, and tone. Mood: Euthymic. Affect: Congruent with mood. Thought process: Linear. Thought Content: Food. Cognition: A&Ox4 Insight: Fair. Judgment: Good. Interventions PRN's used: None Therapeutic interventions: AM assessment; prompts to shower and attend groups and get up for meals; medication administration/education/monitoring, Q 15 min safety checks. Restraints/seclusion/emergency medication: N/A Justification of Continued Inpatient Treatment: Pt is gravely disabled, he is LPS conserved, he is awaiting placement.
[2020-03-17 20:00] VITALS: BP 129/85
[2020-03-17] MEDS: atorvastatin 10mg tablet PO SCH (20:15)
--- NOTE | 2020-03-17 23:02 | NUR ---
NURSING PROGRESS NOTE Legal hold: LPS conserved Client on involuntary status for GD Report received from Juan GOULD with use of SBAR Why are they here: Patient had been discharged previously with follow up at [facility] Team. Upon assessment by the [facility], it was determined patient was not able to obtain, food, group home, or clothing and a 5150 for GD was written. Patient returned within hours of discharge. At time of return patient denied any symptoms related to his mental illness diagnosis of Schizophrenia. He continues to present with cognitive impairment which impedes his ability to care of himself, and requires multiple supports and external structures. Assessment What has happened this shift: Patient was awake and up on the unit. social with peers ad staff watching tv. Pt ate snack in group room and is happy and cooperative. He talked about his walk to day around the hospital. He denies AH/VH at this time. S/I, H/I: Denies. A/VH: Denies. Sleep: Pt. napped for 2 hours in the AM and in the afternoon. ADL's: Independent. Group attendance: N/A Were Meds taken: Yes. Any med S/E: None Mental Status Exam Appearance: Clean and neat. Eye contact: Good. Behavior: Cooperative and friendly. Speech: Normal rate, rhythm, and tone. Mood: Euthymic. Affect: Congruent with mood. Thought process: Linear. Thought Content: Food. Cognition: A&Ox4 Insight: Fair. Judgment: Good. Interventions PRN's used: None Therapeutic interventions: AM assessment; prompts to shower and attend groups and get up for meals; medication administration/education/monitoring, Q 15 min safety checks. Restraints/seclusion/emergency medication: N/A Justification of Continued Inpatient Treatment: Pt is gravely disabled, he is LPS conserved, he is awaiting placement.
[2020-03-17] MEDS: LORazepam 1 MG tablet PO PRN (23:47)
[2020-03-18 07:30] VITALS: BP 100/62
[2020-03-18] MEDS: lactobacillus rhamnosus 10,000 MMU CELLS/CAPSULE PO SCH ×2 (08:06→20:09)
[2020-03-18] MEDS: sennosides 8.6mg tablet PO SCH ×2 (08:06→20:09)
[2020-03-18] MEDS: benztropine 1mg tablet PO SCH ×2 (08:06→20:08)
[2020-03-18] MEDS: docusate sod 100mg capsule PO SCH ×2 (08:06→20:08)
[2020-03-18] MEDS: DOXYCYCLINE 100MG CAPSULE PO SCH (08:06)
[2020-03-18] MEDS: naproxen 500mg tablet PO SCH ×2 (08:06→17:51)
[2020-03-18] MEDS: pantoprazole 40mg Tablet.DR PO SCH (08:07)
[2020-03-18] MEDS: atomoxetine 40 MG capsule PO SCH (08:10)
[2020-03-18] MEDS: NICOTINE POLACRILEX 2 MG LOZENGE BC PRN (08:10)
[2020-03-18] MEDS: clozapine 25mg tablet PO SCH (14:47)
[2020-03-18] MEDS: clozapine 100mg tablet PO SCH ×2 (14:47→20:10)
[2020-03-18] MEDS: calcium carbonate 500mg chew tablet PO PRN (15:35)
--- NOTE | 2020-03-18 16:19 | NUR ---
NURSING PROGRESS NOTE Legal hold: LPS conserved Client on involuntary status for GD Report received from Avril Garcia RN with use of SBAR Why are they here: Patient had been discharged previously with follow up at [facility] Team. Upon assessment by the [facility], it was determined patient was not able to obtain, food, prison, or clothing and a 5150 for GD was written. Patient returned within hours of discharge. At time of return patient denied any symptoms related to his mental illness diagnosis of Schizophrenia. He continues to present with cognitive impairment which impedes his ability to care of himself, and requires multiple supports and external structures. Assessment What has happened this shift: Pt. asleep at start of shift. Pt. awake for breakfast and took medications. Pt. quiet this AM, ate breakfast, and then went back to sleep. Pt. napped most of the AM and part of the afternoon. Pt. denies SI/HI, A/V hallucinations. Pt. reporting heartburn in afternoon and given tums with good effect. Pt. more energetic in the afternoon, talking with peers, watching TV in Rec Room. S/I, H/I: Denies. A/VH: Denies. Sleep: Pt. napped most of AM and part of afternoon. ADL's: Independent. Group attendance: No Were Meds taken: Yes. Any med S/E: None Mental Status Exam Appearance: Clean and neat Eye contact: Good. Behavior: Cooperative, lethargic in AM. More energetic in afternoon. Speech: Normal rate, rhythm, and tone. Mood: Euthymic. Affect: Congruent with mood. Thought process: Linear. Thought Content: Food. Cognition: A&Ox4 Insight: Fair. Judgment: Good. Interventions PRN's used: Tums x1 Therapeutic interventions: AM assessment; prompts to shower and attend groups and get up for meals; medication administration/education/monitoring, Q 15 min safety checks. Restraints/seclusion/emergency medication: N/A Justification of Continued Inpatient Treatment: Pt is gravely disabled, he is LPS conserved, he is awaiting placement.
--- NOTE | 2020-03-18 17:07 | NUR ---
Placement Pt's awaiting placement via [facility] & [facility]. SS received t/c from [facility] admission coordinator-Melany Santoyo, requesting current PNs, meds & labs to assist in admission assessment. SS also received similar request from [facility]-Placement services. SS faxed requested info to both places. Met w/pt to update him on status of placement search. Shirin Carlos LCSW Addendum: 03/18/20 at 1710 by Shirin Carlos Amended: Links added.
[2020-03-18 20:00] VITALS: BP 121/79
[2020-03-18] MEDS: atorvastatin 10mg tablet PO SCH (20:09)
[2020-03-18] MEDS: LORazepam 1 MG tablet PO PRN (22:14)
--- NOTE | 2020-03-18 22:51 | NUR ---
NURSING PROGRESS NOTE Legal hold: LPS conserved Client on involuntary status for GD Report received from LUIS FERNANDO Zuleta with use of SBAR Why are they here: Patient had been discharged previously with follow up at [facility] Team. Upon assessment by the [facility], it was determined patient was not able to obtain, food, alf, or clothing and a 5150 for GD was written. Patient returned within hours of discharge. At time of return patient denied any symptoms related to his mental illness diagnosis of Schizophrenia. He continues to present with cognitive impairment which impedes his ability to care of himself, and requires multiple supports and external structures. Assessment What has happened this shift: Patient was in his room napping at shift change. He reports feeling good to day but tired. He missed going on his walk but said there is always tomorrow. He is med compliant and looking foreword to placement. He states that the [facility] is working on that. S/I, H/I: Denies. A/VH: Denies. Sleep: Pt. napped most of AM and part of afternoon. ADL's: Independent. Group attendance: No Were Meds taken: Yes. Any med S/E: None Mental Status Exam Appearance: Clean and neat Eye contact: Good. Behavior: Cooperative, lethargic in AM. More energetic in afternoon. Speech: Normal rate, rhythm, and tone. Mood: Euthymic. Affect: Congruent with mood. Thought process: Linear. Thought Content: Food. Cognition: A&Ox4 Insight: Fair. Judgment: Good. Interventions PRN's used: Ativan Therapeutic interventions: AM assessment; prompts to shower and attend groups and get up for meals; medication administration/education/monitoring, Q 15 min safety checks. Restraints/seclusion/emergency medication: N/A Justification of Continued Inpatient Treatment: Pt is gravely disabled, he is LPS conserved, he is awaiting placement.
[2020-03-19 08:00] VITALS: BP 102/57
[2020-03-19] MEDS: DOXYCYCLINE 100MG CAPSULE PO SCH (08:07)
[2020-03-19] MEDS: pantoprazole 40mg Tablet.DR PO SCH (08:07)
[2020-03-19] MEDS: lactobacillus rhamnosus 10,000 MMU CELLS/CAPSULE PO SCH ×2 (08:07→20:48)
[2020-03-19] MEDS: benztropine 1mg tablet PO SCH ×2 (08:07→20:49)
[2020-03-19] MEDS: docusate sod 100mg capsule PO SCH ×2 (08:07→20:49)
[2020-03-19] MEDS: sennosides 8.6mg tablet PO SCH ×2 (08:07→20:48)
[2020-03-19] MEDS: naproxen 500mg tablet PO SCH ×2 (08:07→16:54)
[2020-03-19] MEDS: atomoxetine 40 MG capsule PO SCH (08:07)
--- NOTE | 2020-03-19 15:02 | NUR ---
F/u (03/19): PO 75-100% avg heart healthy diet meeting needs. +36.8kg since admit possibly r/t medications that increase appetite and weight gain. Pt diet order includes double portions of protein, salads, etc. Per PA note pt continuing program for weight loss and exercise. Last BM 03/19. Rec: 1. continue heart healthy diet 2. Double eggs q breakfast, double meat BIDLD; extra fruits/vegetables on meal trays; salad BIDLD all per MD diet order 3. routine bowel care 4. wt per rx Addendum: 03/19/20 at [address] Amended: Links added.
--- NOTE | 2020-03-19 15:36 | NUR ---
NURSING PROGRESS NOTE Legal hold: LPS conserved Client on involuntary status for GD Report received from LUIS FERNANDO Guerrero with use of SBAR Why are they here: Patient had been discharged previously with follow up at [facility] Team. Upon assessment by the [facility], it was determined patient was not able to obtain, food, halfway, or clothing and a 5150 for GD was written. Patient returned within hours of discharge. At time of return patient denied any symptoms related to his mental illness diagnosis of Schizophrenia. He continues to present with cognitive impairment which impedes his ability to care of himself, and requires multiple supports and external structures. Assessment What has happened this shift: Pt. asleep at start of shift. Pt. awake for breakfast and took medications. Pt up and visible after breakfast. Pt has bright affect and says hes in a good mood. Pt. denies SI/HI, A/V hallucinations. Pt.went on a walk in afternoon and was pleasant with no complaints. Pt. more energetic in the afternoon, talking with peers, watching TV in Rec Room. S/I, H/I: Denies. A/VH: Denies. Sleep: Pt. napped most of AM and part of afternoon. ADL's: Independent. Group attendance: No Were Meds taken: Yes. Any med S/E: None Mental Status Exam Appearance: Clean and neat Eye contact: Good. Behavior: Cooperative, lethargic in AM. More energetic in afternoon. Speech: Normal rate, rhythm, and tone. Mood: Euthymic. Affect: Congruent with mood. Thought process: Linear. Thought Content: Food. Cognition: A&Ox4 Insight: Fair. Judgment: Good. Interventions PRN's used: Therapeutic interventions: AM assessment; prompts to shower and attend groups and get up for meals; medication administration/education/monitoring, Q 15 min safety checks. Restraints/seclusion/emergency medication: N/A Justification of Continued Inpatient Treatment: Pt is gravely disabled, he is LPS conserved, he is awaiting placement.
[2020-03-19] MEDS: clozapine 25mg tablet PO SCH (15:37)
[2020-03-19] MEDS: clozapine 100mg tablet PO SCH ×2 (15:37→20:47)
[2020-03-19 20:33] VITALS: BP 122/80
[2020-03-19] MEDS: atorvastatin 10mg tablet PO SCH (20:49)
[2020-03-19] MEDS: LORazepam 1 MG tablet PO PRN (22:01)
--- NOTE | 2020-03-19 23:28 | NUR ---
NURSING PROGRESS NOTE Legal hold: LPS conserved Client on involuntary status for GD Report received from Juan GOULD with use of SBAR Why are they here: Patient had been discharged previously with follow up at [facility] Team. Upon assessment by the [facility], it was determined patient was not able to obtain, food, nursing home, or clothing and a 5150 for GD was written. Patient returned within hours of discharge. At time of return patient denied any symptoms related to his mental illness diagnosis of Schizophrenia. He continues to present with cognitive impairment which impedes his ability to care of himself, and requires multiple supports and external structures. Assessment What has happened this shift: PT is sitting in rec room socializing with peers.He smiles and makes good eye contact. He is cooperative with 1:1 assessment and medication compliant. He jokes about wishing he could have a beer and asks for candy. Tax Economist encourages pt to get on the bike in the rec room for exercise. He requests an ativan just before bed, which is given to him. S/I, H/I: Denies A/VH:none observed or reported Sleep:see sleep assessment notation ADL's: Independent Group attendance: No Were Meds taken: Yes Any med S/E: No Mental Status Exam Appearance: clean Eye contact: Fair Behavior:paces, smiles, watches TV Speech: Normal Mood: Euthymic Affect: content Thought process: Linear Thought Content: WNL Cognition: Alert Insight: Poor Judgment: Poor Interventions PRN's used: ativan Therapeutic interventions: AM assessment; prompts to shower and attend groups and get up for meals; medication administration/education/monitoring, Q 15 min safety checks. Restraints/seclusion/emergency medication: N/A Justification of Continued Inpatient Treatment: Pt is gravely disabled, he is LPS conserved, he is awaiting placement.
[2020-03-20 07:00] VITALS: BP 101/56
[2020-03-20] MEDS: benztropine 1mg tablet PO SCH ×2 (08:25→21:11)
[2020-03-20] MEDS: pantoprazole 40mg Tablet.DR PO SCH (08:25)
[2020-03-20] MEDS: atomoxetine 40 MG capsule PO SCH (08:25)
[2020-03-20] MEDS: sennosides 8.6mg tablet PO SCH ×2 (08:25→21:11)
[2020-03-20] MEDS: lactobacillus rhamnosus 10,000 MMU CELLS/CAPSULE PO SCH ×2 (08:25→21:11)
[2020-03-20] MEDS: naproxen 500mg tablet PO SCH ×2 (08:25→17:55)
[2020-03-20] MEDS: DOXYCYCLINE 100MG CAPSULE PO SCH (08:25)
[2020-03-20] MEDS: docusate sod 100mg capsule PO SCH ×2 (08:25→21:11)
--- NOTE | 2020-03-20 08:39 | NUR ---
Placement Presenting Issues: Pt's waiting for [facility] placement via & [facility]. SS providing advocacy services via t/c with B&C facilities where pt's packet's currently being reviewed. Interventions: SS had t/c with Melany Santoyo-Admission Coordinator @ [facility], per t/c she's still reviewing pt's packet @ this time. Plan: SS will call again next week. Shirin Carlos LCSW Addendum: 03/20/20 at 0842 by Shirin Carlos SS Amended: Links added.
--- NOTE | 2020-03-20 09:16 | NUR ---
CM-Placement SS had t/c with [facility]-Placement services to get updates re pt's placement referrals. Per t/c, pt's packet is currently being reviewed by [facility] has declined pt due to age, Jane Trammell. Shirin Carlos COMPUTER FORENSICS ANALYST Addendum: 03/20/20 at 0924 by Shirin Carlos Amended: Links added.
--- NOTE | 2020-03-20 10:00 | NUR ---
Group Therapy: Process Group This Clinicians goal for this process group were as follows: (1) Ask scaling questions about Patients current anxiety, depression, and irritability symptoms as a check-in. (2) Provide psychoeducation on emotional and situational stressors. (3) Discuss thoughts and feelings that patients experience when they have experienced an emotional and/or situational stressor. (4) Provide psychoeducation on interventions, as actions patients can take to reduce feelings of emotional escalation caused by situational and emotional stressors. (5) Process Patients thoughts and reflections on this topic within the group milieu. Patient identified experiencing the following levels of anxiety, depression, and anger/irritability while present in the group milieu. Anxiety: 09/15 Depression: 09/15 Anger/irritability: 09/15 Patient presented as open and cooperative within the group milieu. Patient was dressed in nondescript personal clothing that was appropriate within the milieu. Patient's thought content was clear and concrete. Patient's thought process appeared to be clear, coherent and linear. This Clinician did not observe Patient responding to any internal stimuli during session. Patient presented as verbally engaged and nonobtrusive during the group discussion on situational stressors and interventions that one could utilize to reduce the acuity of unwanted mental health symptoms. Patient reported that when he began to feel stressed that he enjoyed, "Riding the bus and talking to people," as an intervention to calm down. Yakov Lopez MA, MATTHIEU Addendum: 03/21/20 at 0808 by Yakov Lopez SS Amended: Links added.
[2020-03-20] MEDS: clozapine 100mg tablet PO SCH ×2 (14:44→21:12)
[2020-03-20] MEDS: clozapine 25mg tablet PO SCH (14:44)
--- NOTE | 2020-03-20 16:12 | NUR ---
Placement SS received t/c from Selene @ [facility] requesting a phone interview with pt tomorrow @ 1:00 PM. SS attempted to inform pt, pt's asleep. Pt's RN was informed and will inform pt when he wakes up. Shirin Galvez LCSW Addendum: 03/20/20 at 1627 by Shirin BEAN Amended: Links added.
--- NOTE | 2020-03-20 16:47 | NUR ---
NURSING PROGRESS NOTE Legal hold: LPS conserved Client on involuntary status for GD Report received from LUIS FERNANDO Guerrero with use of SBAR Why are they here: Patient had been discharged previously with follow up at [facility] Team. Upon assessment by the [facility], it was determined patient was not able to obtain, food, senior living, or clothing and a 5150 for GD was written. Patient returned within hours of discharge. At time of return patient denied any symptoms related to his mental illness diagnosis of Schizophrenia. He continues to present with cognitive impairment which impedes his ability to care of himself, and requires multiple supports and external structures. Assessment What has happened this shift: Received pt sleeping in the morning. Patient awakened for meds and breakfast after 3 promptings. Patient did attend outside patio, group, and outside walk. Patient has energy today, more than previous weeks. Pt. Takes medications without incident. S/I, H/I: Denies. A/VH: Denies. Sleep: 6.5 hrs. NOC. ADL's: Independent. Group attendance: Yes. Were Meds taken: Yes. Any med S/E: None Mental Status Exam Appearance: Clean and neat Eye contact: Good. Behavior: Calm and cooperative. Increased energy. Speech: Normal rate, rhythm, and tone. Mood: Euthymic. Affect: Congruent with mood. Thought process: Linear. Thought Content: Food. Discharge to [facility], awaiting interview. Cognition: A&Ox4 Insight: Fair. Judgment: Good. Interventions PRN's used: Therapeutic interventions: AM assessment; prompts to shower and attend groups and get up for meals; medication administration/education/monitoring, Q 15 min safety checks. Restraints/seclusion/emergency medication: N/A Justification of Continued Inpatient Treatment: Pt is gravely disabled, he is LPS conserved, he is awaiting placement.
[2020-03-20 20:33] VITALS: BP 152/93
[2020-03-20] MEDS: LORazepam 1 MG tablet PO PRN (21:10)
[2020-03-20] MEDS: atorvastatin 10mg tablet PO SCH (21:11)
--- NOTE | 2020-03-21 01:58 | NUR ---
NURSING PROGRESS NOTE Legal hold: LPS conserved Client on involuntary status for GD Report received from Stu GOULD with use of SBAR Why are they here: Patient had been discharged previously with follow up at [facility] Team. Upon assessment by the [facility], it was determined patient was not able to obtain, food, snf, or clothing and a 5150 for GD was written. Patient returned within hours of discharge. At time of return patient denied any symptoms related to his mental illness diagnosis of Schizophrenia. He continues to present with cognitive impairment which impedes his ability to care of himself, and requires multiple supports and external structures. Assessment What has happened this shift: PT is sitting in rec room socializing with peers.He smiles and makes good eye contact. He is cooperative with 1:1 assessment and medication compliant. Pt encouraged to try riding the bike more often, pt verbalizes understanding. He requests an ativan just before bed, which is given to him. S/I, H/I: Denies A/VH: internal preoccupation at times Sleep:see sleep assessment notation ADL's: Independent Group attendance: No Were Meds taken: Yes Any med S/E: No Mental Status Exam Appearance: clean Eye contact: Fair Behavior:paces, smiles, watches TV Speech: Normal Mood: Euthymic Affect: content Thought process: Linear Thought Content: circumstantial Cognition: Alert Insight: Poor Judgment: Poor Interventions PRN's used: ativan 2mg Therapeutic interventions: AM assessment; prompts to shower and attend groups and get up for meals; medication administration/education/monitoring, Q 15 min safety checks. Restraints/seclusion/emergency medication: N/A Justification of Continued Inpatient Treatment: Pt is gravely disabled, he is LPS conserved, he is awaiting placement.
[2020-03-21 08:00] VITALS: BP 101/53
[2020-03-21] MEDS: pantoprazole 40mg Tablet.DR PO SCH (08:46)
[2020-03-21] MEDS: docusate sod 100mg capsule PO SCH ×2 (08:46→21:37)
[2020-03-21] MEDS: benztropine 1mg tablet PO SCH ×2 (08:46→21:38)
[2020-03-21] MEDS: lactobacillus rhamnosus 10,000 MMU CELLS/CAPSULE PO SCH ×2 (08:47→21:37)
[2020-03-21] MEDS: sennosides 8.6mg tablet PO SCH ×2 (08:47→21:37)
[2020-03-21] MEDS: atomoxetine 40 MG capsule PO SCH (08:47)
[2020-03-21] MEDS: DOXYCYCLINE 100MG CAPSULE PO SCH (08:47)
[2020-03-21] MEDS: naproxen 500mg tablet PO SCH ×2 (08:47→17:58)
--- NOTE | 2020-03-21 10:00 | NUR ---
Group Therapy: Process Group This Clinicians goals for this process group were as follows: (1) Ask scaling questions about Patients current anxiety, depression, and irritability symptoms as a check-in. (2) Share with Patients psychoeducation about the importance of being able to identify safe, and supportive people who can assist them with their mental and emotional needs. (3) Share psychoeducation on interpersonal boundaries and considerations to assist Patients in developing the ability to discern which groups and individuals will be helpful in assisting them during times of emotional escalation and crisis. (4) Engage Patients in discussion of the topics discussed within the group milieu. Patient identified experiencing the following levels of anxiety, depression, and anger/irritability while present in the group milieu. Anxiety: 09/15 Depression: 09/15 Anger/irritability: 09/15 Patient presented as open and cooperative within the group milieu. Patient was dressed in nondescript personal clothing that were appropriate within the milieu. Patient's thought content was clear and concrete. Patient's thought process was clear, coherent and linear. Patient presented as verbally engaged and nonobtrusive during the discussion on interpersonal boundaries regarding how much one might share safely about their mental health situation with others. Based upon Patient's comments, it is this Clinician's impression that Patient understands that it is not always safe or advisable to share specifics of his mental health situation with others if those people are not safe. Patient verbalized his awareness that it was appropriate to share his mental health symptoms with his, "Doctors, or manager of network." On one interaction with Patient, this Clinician asked Patient what would he share with close family and friends if he were hearing voices, to which Patient responded, it would depend on if it made the voices, "Louder or worse." Yakov Lopez MA, DIRECTOR OF ROOMS Addendum: 03/21/20 at 1142 by Yakov Lopez Amended: Links added.
[2020-03-21] MEDS: clozapine 100mg tablet PO SCH ×2 (15:11→21:39)
[2020-03-21] MEDS: clozapine 25mg tablet PO SCH (15:13)
--- NOTE | 2020-03-21 17:02 | NUR ---
Nursing Progress Note: Legal hold: LPS Client on involuntary status for GD Report received from nurse with use of SBAR: LUIS FERNANDO Guerrero Why are they here: Patient had been discharged previously with follow up at [facility] Team. Upon assessment by the [facility], it was determined patient was not able to obtain, food, nursing home, or clothing and a 5150 for GD was written. Patient returned within hours of discharge. At time of return patient denied any symptoms related to his mental illness diagnosis of Schizophrenia. He continues to present with cognitive impairment which impedes his ability to care of himself, and requires multiple supports and external structures. Assessment What has happened this shift: Received pt. laying in bed sleeping at the beginning of the shift, he awoke for breakfast and remained up throughout the rest of the shift aside from an afternoon nap. 1:1 completed at bedside, pt. continues to deny all MH s/s, and is not observed to be responding to any internal stimuli. He reports he will be having an interview with a facility in [facility] and is excited about this. Pt. up in the hallway and Recreation Room throughout the shift, animated, and interacting appropriately with peers. S/I, H/I: Denies A/VH: Pt. denies, no s/s of response to internal stimuli Sleep: Pt. reports he slept well, sleep hours are 8 ADL's: Independent Group attendance: No Were meds taken: Yes Any med S/E: None Mental Status Exam Appearance: Presents as neat, and appropriately dressed. Eye contact: Good Behavior: Cooperative and pleasant Speech: Soft and WNL Mood: Pleasant Affect: Animated Thought process: Linear Thought Content: WNL Cognition: A&O X4 Insight: Fair Judgment: Fair Interventions PRN's used: None Therapeutic interventions: Ensured contract for safety, maintained a safe and therapeutic environment, provided clear and simple instructions, encouraged physical activity with positive reinforcement, and maintained Q 15 min safety checks. Restraints/seclusion/emergency medication: N/A Justification of Continued Inpatient Treatment: Pt. continues to require a safe and supportive environment while awaiting placement.
[2020-03-21 19:00] VITALS: BP 117/84
[2020-03-21] MEDS: LORazepam 1 MG tablet PO PRN (21:38)
[2020-03-21] MEDS: atorvastatin 10mg tablet PO SCH (21:38)
--- NOTE | 2020-03-22 01:08 | NUR ---
NURSING PROGRESS NOTE Legal hold: LPS conserved Client on involuntary status for GD Report received from Dominique GOULD with use of SBAR Why are they here: Patient had been discharged previously with follow up at [facility] Team. Upon assessment by the [facility], it was determined patient was not able to obtain, food, prison, or clothing and a 5150 for GD was written. Patient returned within hours of discharge. At time of return patient denied any symptoms related to his mental illness diagnosis of Schizophrenia. He continues to present with cognitive impairment which impedes his ability to care of himself, and requires multiple supports and external structures. Assessment What has happened this shift: PT is sitting in rec room socializing with peers.He smiles and makes good eye contact. He is cooperative with 1:1 assessment and medication compliant. He watches an alien movie before bed while charging his ankle monitor. He requests an ativan just before bed, which is given to him. S/I, H/I: Denies A/VH:none observed or reported Sleep:see sleep assessment notation ADL's: Independent Group attendance: No Were Meds taken: Yes Any med S/E: No Mental Status Exam Appearance: clean Eye contact: Fair Behavior:paces, smiles, watches TV Speech: Normal Mood: Euthymic Affect: content Thought process: Linear Thought Content: WNL Cognition: Alert Insight: Poor Judgment: Poor Interventions PRN's used: ativan 2 mg Therapeutic interventions: AM assessment; prompts to shower and attend groups and get up for meals; medication administration/education/monitoring, Q 15 min safety checks. Restraints/seclusion/emergency medication: N/A Justification of Continued Inpatient Treatment: Pt is gravely disabled, he is LPS conserved, he is awaiting placement.
[2020-03-22 08:00] VITALS: BP 136/70
[2020-03-22] MEDS: sennosides 8.6mg tablet PO SCH ×2 (08:52→21:03)
[2020-03-22] MEDS: docusate sod 100mg capsule PO SCH ×2 (08:52→21:03)
[2020-03-22] MEDS: atomoxetine 40 MG capsule PO SCH (08:52)
[2020-03-22] MEDS: benztropine 1mg tablet PO SCH ×2 (08:52→21:04)
[2020-03-22] MEDS: naproxen 500mg tablet PO SCH ×2 (08:52→17:58)
[2020-03-22] MEDS: DOXYCYCLINE 100MG CAPSULE PO SCH (08:52)
[2020-03-22] MEDS: pantoprazole 40mg Tablet.DR PO SCH (08:52)
[2020-03-22] MEDS: lactobacillus rhamnosus 10,000 MMU CELLS/CAPSULE PO SCH ×2 (08:52→21:03)
--- NOTE | 2020-03-22 10:00 | NUR ---
Group Therapy: Process Group This Clinicians goals for this process group were as follows: (1) Ask scaling questions about Patients current anxiety, depression, and irritability symptoms as a check-in. (2) Share psychoeducation about automatic thoughts and cognitive distortions. (3) Share psychoeducation on CBT thought-stopping and, thought-reframing. (4) Discuss strategies for identifying negative, unhelpful, and/or irrational thoughts as quickly as possible to avoid unwanted escalation of mental health symptoms. (5) Process Clients thoughts and reflections on this topic within the group milieu. Patient identified experiencing the following levels of anxiety, depression, and anger/irritability while present in the group milieu. Anxiety: 09/15 Depression: 09/15 Anger/irritability: 09/15 Patient presented as open and cooperative within the group milieu. Patient was dressed in nondescript, personal clothing that were appropriate within the milieu. Patient's thought content was clear, and concrete. Patient's thought process was largely, clear, coherent, and linear. Occasionally Patient demonstrated slight paucity of thought, as he appeared to understand the concept of rational thinking leading to healthier and more adaptive subsequent thoughts, feelings, and actions, but he occasionally struggled to find words to express these thoughts verbally. Patient presented as verbally engaged and nonobtrusive within the group milieu. Yakov Lopez MA, MATTHIEU Addendum: 03/22/20 at 1156 by Yakov Lopez SS Amended: Links added.
[2020-03-22] MEDS: NICOTINE POLACRILEX 2 MG LOZENGE BC PRN (11:24)
[2020-03-22] MEDS: clozapine 25mg tablet PO SCH (13:38)
[2020-03-22] MEDS: clozapine 100mg tablet PO SCH ×2 (13:38→21:06)
--- NOTE | 2020-03-22 14:30 | NUR ---
Nursing Progress Note: Legal hold: LPS Client on involuntary status for GD Report received from nurse with use of SBAR: Avril Mueller RN Why are they here: Patient had been discharged previously with follow up at [facility] Team. Upon assessment by the [facility], it was determined patient was not able to obtain, food, long-term, or clothing and a 5150 for GD was written. Patient returned within hours of discharge. At time of return patient denied any symptoms related to his mental illness diagnosis of Schizophrenia. He continues to present with cognitive impairment which impedes his ability to care of himself, and requires multiple supports and external structures. Assessment What has happened this shift: Received pt. sleeping in bed at the beginning of the shift, he was awoken for breakfast by staff and remained up afterwards. Pt. attended outside patio time with others, and later took his daily walk around the facility for exercise with this feature writer. 1:1 completed at this time, pt. continues to deny all MH s/s, no delusional statements made, and he does not appear to be internally preoccupied. Pt. is future oriented, and reports that when he gets out he would like to go to school, get a job possibly teaching, and stay away from drugs. Pt. reports that he is still awaiting his interview with a facility in [place], however he hopes to complete this soon. Pt. up interacting appropriately with peers and watching TV during the rest of the shift. S/I, H/I: Denies A/VH: Pt. denies, no s/s of response to internal stimuli Sleep: Pt. reports he slept well, sleep hours are 7 ADL's: Independent Group attendance: No Were meds taken: Yes Any med S/E: None Mental Status Exam Appearance: Presents as neat, and appropriately dressed. Eye contact: Good Behavior: Cooperative and pleasant Speech: Soft and WNL Mood: Pleasant Affect: Animated Thought process: Linear Thought Content: WNL Cognition: A&O X4 Insight: Fair Judgment: Fair Interventions PRN's used: None Therapeutic interventions: Ensured contract for safety, maintained a safe and therapeutic environment, provided clear and simple instructions, encouraged physical activity and accompanied pt. for his daily walk, and maintained Q 15 min safety checks. Restraints/seclusion/emergency medication: N/A Justification of Continued Inpatient Treatment: Pt. continues to require a safe and supportive environment while awaiting placement.
[2020-03-22 20:00] VITALS: BP 126/80
[2020-03-22] MEDS: atorvastatin 10mg tablet PO SCH (21:04)
[2020-03-22] MEDS: LORazepam 1 MG tablet PO PRN (23:40)
--- NOTE | 2020-03-23 04:42 | NUR ---
Nursing Progress Note: Legal hold: LPS Client on involuntary status for GD Report received from Dominique GOULD with use of SBAR Why are they here: Patient had been discharged previously with follow up at [facility] Team. Upon assessment by the [facility], it was determined patient was not able to obtain, food, halfway, or clothing and a 5150 for GD was written. Patient returned within hours of discharge. At time of return patient denied any symptoms related to his mental illness diagnosis of Schizophrenia. He continues to present with cognitive impairment which impedes his ability to care of himself, and requires multiple supports and external structures. Assessment What has happened this shift: Patient observed watching tv in the recreation room socializing with peers appropriately. Pleasant and cooperative with all care, compliant with medication. PRN Ativan for increased anxiety with positive effect. Continues to joke with staff and observed smiling often. Patient denies SI, HI A/VH. Patient observed participating in HS snack and returned to watching tv. Later observed sleeping without difficulty. S/I, H/I: Denies A/VH: Denies, no s/s of response to internal stimuli Sleep: Refer to sleep assessment ADL's: Independent Group attendance: No groups this shift Were meds taken: Yes, without incident Any med S/E: None observed or reported Mental Status Exam Appearance: Neat, clean. appropriately dressed. Eye contact: Good Behavior: Cooperative and pleasant, watching tv Speech: Clear, soft, regular rate/rhythm Mood: Euthymic Affect: Animated Thought process: Linear Thought Content: WNL Cognition: A&O X4 Insight: Fair Judgment: Fair Interventions PRN's used: Ativan Therapeutic interventions: Ensured contract for safety, maintained a safe and therapeutic environment, provided clear and simple instructions, encouraged physical activity and accompanied pt. for his daily walk, and maintained Q 15 min safety checks. Restraints/seclusion/emergency medication: N/A Justification of Continued Inpatient Treatment: Pt. continues to require a safe and supportive environment while awaiting placement.
[2020-03-23 08:00] VITALS: BP 109/58
[2020-03-23] MEDS: DOXYCYCLINE 100MG CAPSULE PO SCH (08:46)
[2020-03-23] MEDS: docusate sod 100mg capsule PO SCH ×2 (08:47→20:50)
[2020-03-23] MEDS: atomoxetine 40 MG capsule PO SCH (08:47)
[2020-03-23] MEDS: sennosides 8.6mg tablet PO SCH ×2 (08:47→20:50)
[2020-03-23] MEDS: pantoprazole 40mg Tablet.DR PO SCH (08:47)
[2020-03-23] MEDS: benztropine 1mg tablet PO SCH ×2 (08:47→20:50)
[2020-03-23] MEDS: lactobacillus rhamnosus 10,000 MMU CELLS/CAPSULE PO SCH ×2 (08:47→20:50)
[2020-03-23] MEDS: naproxen 500mg tablet PO SCH ×2 (08:49→17:54)
[2020-03-23] MEDS: LORazepam 1 MG tablet PO PRN ×2 (12:26→22:54)
[2020-03-23] MEDS: clozapine 25mg tablet PO SCH (13:27)
[2020-03-23] MEDS: clozapine 100mg tablet PO SCH ×2 (13:27→20:49)
--- NOTE | 2020-03-23 14:10 | NUR ---
Nursing Progress Note: Legal hold: LPS Client on involuntary status for GD Report received from nurse with use of SBAR: Avril Mueller RN Why are they here: Patient had been discharged previously with follow up at [facility] Team. Upon assessment by the [facility], it was determined patient was not able to obtain, food, assisted, or clothing and a 5150 for GD was written. Patient returned within hours of discharge. At time of return patient denied any symptoms related to his mental illness diagnosis of Schizophrenia. He continues to present with cognitive impairment which impedes his ability to care of himself, and requires multiple supports and external structures. Assessment What has happened this shift: Received pt. sleeping in bed at the beginning of the shift, he awoke for breakfast and then retreated back to bed. 1:1 completed at bedside, pt. continues to deny all MH s/s, however he later reports feeling restless/anxious r/t desire to discharge, PRN Ativan administered with effectiveness. Pt. up interacting appropriately with peers and watching TV in the afternoon. S/I, H/I: Denies A/VH: Pt. denies, no s/s of response to internal stimuli Sleep: Pt. reports he slept well, sleep hours are 5.5 ADL's: Independent Group attendance: No Were meds taken: Yes Any med S/E: None Mental Status Exam Appearance: Presents as neat, and appropriately dressed. Eye contact: Good Behavior: Cooperative and pleasant Speech: Soft and WNL Mood: Pleasant Affect: Animated Thought process: Linear Thought Content: Preoccupation with desire to discharge Cognition: A&O X4 Insight: Fair Judgment: Fair Interventions PRN's used: None Therapeutic interventions: Ensured contract for safety, maintained a safe and therapeutic environment, provided clear and simple instructions, encouraged physical activity, and maintained Q 15 min safety checks. Restraints/seclusion/emergency medication: N/A Justification of Continued Inpatient Treatment: Pt. continues to require a safe and supportive environment while awaiting placement. Addendum: 03/23/20 at 1519 by Conchita Laird RN In the afternoon, pt. reported restlessness, and appeared to be responding to internal stimuli. Obtained one-time order for Gwendolyn, will monitor.
[2020-03-23] MEDS ORDERED: OLANZAPINE 5 MG TABLET PO ONE (15:15)
[2020-03-23] MEDS: NICOTINE POLACRILEX 2 MG LOZENGE BC PRN (15:21)
[2020-03-23] MEDS: benzocaine (Anbesol) 12ml bottle MM PRN ×2 (17:54→19:50)
[2020-03-23 20:13] VITALS: BP 129/76
[2020-03-23] MEDS: atorvastatin 10mg tablet PO SCH (20:50)
--- NOTE | 2020-03-24 05:32 | NUR ---
Nursing Progress Note: Legal hold: LPS Client on involuntary status for GD Report received from Dominique GOULD with use of SBAR Why are they here: Patient had been discharged previously with follow up at [facility]. Upon assessment by the [facility], it was determined patient was not able to obtain, food, correction, or clothing and a 5150 for GD was written. Patient returned within hours of discharge. At time of return patient denied any symptoms related to his mental illness diagnosis of Schizophrenia. He continues to present with cognitive impairment which impedes his ability to care of himself, and requires multiple supports and external structures. Assessment What has happened this shift: Patient in recreation room watching TV at the beginning of shift. Pleasant and cooperative with all care, compliant with all medication. PRN Ativan provided for increased anxiousness with positive effect. Patient reported +A/VH this shift explaining that sometimes he sees different scenes and sometimes being commanded to do "do something or else." Patient observed socializing appropriately with peers and continues to joke with staff. Participated in HS snack and continued to watch TV prior to bed. Does not appear to be having difficulty sleeping. S/I, H/I: Denies A/VH: +A/VH Sleep: Refer to sleep assessment ADL's: Independent Group attendance: No groups this shift Were meds taken: Yes, without incident Any med S/E: None observed or reported Mental Status Exam Appearance: Neat, clean. appropriately dressed. Eye contact: Good Behavior: Cooperative and pleasant, watching tv Speech: Clear, soft, regular rate/rhythm Mood: Euthymic Affect: Animated Thought process: Linear Thought Content: Joking, movies and TV shows Cognition: A&O X4 Insight: Fair Judgment: Fair Interventions PRN's used: Ativan Therapeutic interventions: Ensured contract for safety, maintained a safe and therapeutic environment, provided clear and simple instructions, encouraged physical activity and accompanied pt. for his daily walk, and maintained Q 15 min safety checks. Restraints/seclusion/emergency medication: N/A Justification of Continued Inpatient Treatment: Pt. continues to require a safe and supportive environment while awaiting placement.
[2020-03-24 07:57] VITALS: BP 130/62
[2020-03-24] MEDS: DOXYCYCLINE 100MG CAPSULE PO SCH (08:03)
[2020-03-24] MEDS: atomoxetine 40 MG capsule PO SCH (08:03)
[2020-03-24] MEDS: sennosides 8.6mg tablet PO SCH ×2 (08:03→20:10)
[2020-03-24] MEDS: naproxen 500mg tablet PO SCH ×2 (08:03→17:38)
[2020-03-24] MEDS: pantoprazole 40mg Tablet.DR PO SCH (08:03)
[2020-03-24] MEDS: benztropine 1mg tablet PO SCH ×2 (08:03→20:10)
[2020-03-24] MEDS: lactobacillus rhamnosus 10,000 MMU CELLS/CAPSULE PO SCH ×2 (08:03→20:10)
[2020-03-24] MEDS: docusate sod 100mg capsule PO SCH ×2 (08:03→20:10)
[2020-03-24] MEDS: clozapine 100mg tablet PO SCH ×2 (13:04→20:10)
[2020-03-24] MEDS: clozapine 25mg tablet PO SCH (13:04)
--- NOTE | 2020-03-24 16:57 | NUR ---
Nursing Progress Note: Legal hold: LPS Client on involuntary status for GD Report received from nurse with use of SBAR: LUIS FERNANDO Martinez Why are they here: Patient had been discharged previously with follow up at [facility] Team. Upon [place] [facility] [place] it was determined patient was not able to obtain, food, group home, or clothing and a 5150 for GD was written. Patient returned within hours of discharge. At time of return patient denied any symptoms related to his mental illness diagnosis of Schizophrenia. He continues to present with cognitive impairment which impedes his ability to care of himself, and requires multiple supports and external structures. Assessment What has happened this shift: Received pt. laying in bed sleeping at the beginning of the shift, he awoke for breakfast and remained up throughout the rest of the shift aside from an afternoon nap. 1:1 completed at bedside, pt. continues to deny all MH s/s, and is not observed to be responding to any internal stimuli. Pt declined patio walk in am with peers, but did go on off unit walk with security and staff member. Pt. up in the hallway and Recreation Room throughout the shift, animated, and interacting appropriately with peers. Pt was happy r/t pizza ordered by . S/I, H/I: Denies A/VH: Pt. denies, no s/s of response to internal stimuli Sleep: brief nap in afternoon ADL's: Independent Group attendance: No Were meds taken: Yes Any med S/E: None Mental Status Exam Appearance: Presents as neat, and appropriately dressed. Eye contact: Good Behavior: Cooperative and pleasant Speech: Soft and WNL Mood: Pleasant Affect: Animated Thought process: Linear Thought Content: WNL Cognition: A&O X4 Insight: Fair Judgment: Fair Interventions PRN's used: None Therapeutic interventions: Ensured contract for safety, maintained a safe and therapeutic environment, provided clear and simple instructions, encouraged physical activity with positive reinforcement, and maintained Q 15 min safety checks. Restraints/seclusion/emergency medication: N/A Justification of Continued Inpatient Treatment: Pt. continues to require a safe and supportive environment while awaiting placement.
[2020-03-24 19:21] LABS: BASOPHILS % (AUTO) 0.5 % (0-1); EOSINOPHILS # (AUTO) 0.2 X10'3 (0-0.9); EOSINOPHILS % (AUTO) 1.7 % (0-6); HEMATOCRIT 45.1 % (42.0-52.0); HEMOGLOBIN 15.1 g/dl (14.0-17.9); LYMPHOCYTES # (AUTO) 1.9 X10'3 (1.1-4.8); LYMPHOCYTES % (AUTO) 20.7 % (21-51); MEAN CORPUSCULAR HGB CONC 33.6 g/dL (33.0-36.5); MEAN CORPUSCULAR VOLUME 83.6 FL (78-98); MEAN PLATELET VOLUME 8.3 FL (7.4-10.4); MONOCYTES # (AUTO) 0.9 X10'3 (0-0.9); MONOCYTES % (AUTO) 9.2 % (2-12); NEUTROPHILS # (AUTO) 6.3 X10'3 (1.8-7.7); NEUTROPHILS % (AUTO) 67.9 % (42-75); PLATELET COUNT 195 X10'3 (140-440); WHITE BLOOD COUNT 9.3 X10'3 (4.5-11.0)
[2020-03-24 19:31] LABS: ALANINE AMINOTRANSFERASE 60 U/L (12-78); ALBUMIN 3.7 G/DL (3.4-5.0); ALBUMIN/GLOBULIN RATIO 1.1 (1.1-1.5); ALKALINE PHOSPHATASE 197 IU/L (46-116); ANION GAP 10 (8-16); BILIRUBIN,TOTAL 0.3 MG/DL (0.1-1.0); BLOOD UREA NITROGEN 13 MG/DL (7-18); BUN/CREATININE RATIO 12.7 (5.4-32.0); CALCIUM 8.4 MG/DL (8.5-10.1); CHLORIDE 105 MMOL/L (99-107); CREATININE 1.02 MG/DL (0.60-1.10); SODIUM 138 MMOL/L (135-145); TOTAL CARBON DIOXIDE 23.2 MMOL/L (24-32); TOTAL PROTEIN 7.2 G/DL (6.4-8.2); eGFR 88 ML/MIN
[2020-03-24 19:50] LABS: GLUCOSE 231 MG/DL (70-104); POTASSIUM 3.9 MMOL/L (3.5-5.1)
[2020-03-24 19:53] LABS: ASPARTATE AMINO TRANSFERASE 31 U/L (10-37)
[2020-03-24 20:00] VITALS: BP 146/87
[2020-03-24] MEDS: atorvastatin 10mg tablet PO SCH (20:10)
[2020-03-24] MEDS: NICOTINE POLACRILEX 2 MG LOZENGE BC PRN (20:12)
[2020-03-24] MEDS: LORazepam 1 MG tablet PO PRN (22:14)
--- NOTE | 2020-03-25 04:44 | NUR ---
Nursing Progress Note: Legal hold: LPS Client on involuntary status for GD Report received from Dominique GOULD with use of SBAR Why are they here: Patient had been discharged previously with follow [place] [facility]. [place] [facility] [place] was not able to obtain, food, senior care, or clothing and a 5150 for GD was written. Patient returned within hours of discharge. At time of return patient denied any symptoms related to his mental illness diagnosis of Schizophrenia. He continues to present with cognitive impairment which impedes his ability to care of himself, and requires multiple supports and external structures. Assessment What has happened this shift: Patient in recreation room watching TV at the beginning of shift. Pt continues to be pleasant and cooperative with care, but is responding to IS more than usual tonight. Pt endorses A/VH but would not elaborate on the stimuli. Pt pacing the halls and occasionally interacting appropriately with staff or peers. PRN Ativan 1mg given this evening to good effect; pt compliant with medications and attended HS snack then paced the halls for a while. He watched TV while charging his ankle bracelet then turned in to sleep. S/I, H/I: Denies A/VH: +A/VH, Observed to be responding to IS more than usual this evening Sleep: Refer to sleep assessment ADL's: Independent Group attendance: N/A Were meds taken: Yes Any med S/E: None observed nor reported Mental Status Exam Appearance: Neat, clean. Appropriately dressed in personal clothing Eye contact: Good Behavior: Cooperative and pleasant, pacing halls, responding to IS Speech: Clear, soft, regular rate/rhythm Mood: Euthymic Affect: Animated Thought process: Linear Thought Content: Making jokes and small talk with staff, movies Cognition: A&O/4 Insight: Fair Judgment: Fair Interventions PRN's used: Ativan 1mg and Nicotine Lozenge Therapeutic interventions: Ensured contract for safety, maintained a safe and therapeutic environment, provided clear and simple instructions, encouraged physical activity and accompanied pt. for his daily walk, and maintained Q 15 min safety checks. Restraints/seclusion/emergency medication: N/A Justification of Continued Inpatient Treatment: Pt. continues to require a safe and supportive environment while awaiting placement.
[2020-03-25 08:00] VITALS: BP 106/55
[2020-03-25] MEDS: benztropine 1mg tablet PO SCH ×2 (08:21→20:41)
[2020-03-25] MEDS: atomoxetine 40 MG capsule PO SCH (08:21)
[2020-03-25] MEDS: lactobacillus rhamnosus 10,000 MMU CELLS/CAPSULE PO SCH ×2 (08:22→20:41)
[2020-03-25] MEDS: pantoprazole 40mg Tablet.DR PO SCH (08:22)
[2020-03-25] MEDS: docusate sod 100mg capsule PO SCH ×2 (08:22→20:41)
[2020-03-25] MEDS: naproxen 500mg tablet PO SCH ×2 (08:22→17:44)
[2020-03-25] MEDS: sennosides 8.6mg tablet PO SCH ×2 (08:22→20:41)
[2020-03-25] MEDS: clozapine 100mg tablet PO SCH ×2 (13:55→20:42)
[2020-03-25] MEDS: clozapine 25mg tablet PO SCH (13:55)
--- NOTE | 2020-03-25 16:18 | NUR ---
1:1 CBT Presenting Issues: Pt will interview w/[facility] this afternoon. Interventions: SS met w/pt and provide CBT support via coaching for the interview. Plan: Pt will interview and check-in w/SS following his interview. Shirin Carlos LCSW Addendum: 03/25/20 at 1624 by Shirin BEAN Amended: Links added.
--- NOTE | 2020-03-25 16:42 | NUR ---
CM-DCP Presenting Issues: SS received t/c from Melany Santoyo & Selene @ [facility], per t/c pt's accepted for placement at the [facility] pending [facility] [place] approval, they would like to have pt transported to their facility on /Wednesday. Interventions: SS met w/pt and informed him of acceptance @ [facility], pt was excited about the news and informed SS that his interview went well, "they said I passed". Care team informed of placement. Plan: will continue to engage [facility] providers & pt in placement activities. Shirin Carlos LCSW Addendum: 03/25/20 at 1653 by Shirin Carlos SS Amended: Links added.
--- NOTE | 2020-03-25 16:54 | NUR ---
Placement SS received t/c from [facility], per t/c, while pt has been accepted for placement @ [facility], he is not able to transition to the [facility] as a result of his parole needs. [facility] will determine if they have any beds at their programs that do support parolees. Pt and care team informed. Pt was able to see the positive-"I've been accepted, so eventually I'll get to leave". SS will continue to monitor placement situation. Shirin Carlos LCSW Addendum: 03/25/20 at 1657 by Shirin Carlos Amended: Links added.
--- NOTE | 2020-03-25 18:12 | NUR ---
Nursing Progress Note: Legal hold: LPS Client on involuntary status for GD Report received from nurse with use of SBAR: LUIS FERNANDO Martinez Why are they here: Patient had been discharged previously with follow up [place] [facility]. [place] [facility] [place], food, [place] [facility] [place], or clothing and a 5150 for GD was written. Patient returned within hours of discharge. At time of return patient denied any symptoms related to his mental illness diagnosis of schizophrenia. He continues to present with cognitive impairment which impedes his ability to care of himself, and requires multiple supports and external structures. Assessment What has happened this shift: Pt sleeping at the change of shift. He was compliant with medication administration. He indicated he slept good. He was not initially cooperative with assessment, stating, Dont want to talk. He napped during the AM. He denied depression, anxiety, SI, and A/V H. He showered in the afternoon. He was pleasant and cooperative. Readily socializes with staff and other patients. S/I, H/I: Denies A/VH: Denies Sleep: Napped ADL's: Independent Group attendance: No Were meds taken: Yes Any med S/E: None reported or observed Mental Status Exam Appearance: Neat and clean Eye contact: Direct Behavior: Pleasant Speech: Normal rate and rhythm Mood: Euthymic Affect: Smiling, congruent with mood Thought process: Linear Thought Content: Happy that he may be leaving Cognition: A&O X4 Insight: Fair Judgment: Fair Interventions PRN's used: None Therapeutic interventions: Ensured contract for safety, maintained a safe and therapeutic environment, provided clear and simple instructions, encouraged physical activity, notified regarding pt's need for a dental appointment to be scheduled per pt's public guardian, maintained Q 15 min safety checks, and medication education, administration, and monitoring for effects. Restraints/seclusion/emergency medication: N/A Justification of Continued Inpatient Treatment: Pt. continues to require a safe and supportive environment while awaiting placement.
[2020-03-25] MEDS: NICOTINE POLACRILEX 2 MG LOZENGE BC PRN (19:01)
[2020-03-25 20:33] VITALS: BP 138/85
[2020-03-25] MEDS: atorvastatin 10mg tablet PO SCH (20:41)
[2020-03-25] MEDS: LORazepam 1 MG tablet PO PRN (22:11)
--- NOTE | 2020-03-26 04:47 | NUR ---
Nursing Progress Note: Legal hold: LPS Client on involuntary status for GD Report received from Dominique GOULD with use of SBAR Why are they here: Patient had been discharged previously with follow up at [facility] Team. Upon assessment by the [facility], it was determined patient was not able to obtain, food, halfway, or clothing and a 5150 for GD was written. Patient returned within hours of discharge. At time of return patient denied any symptoms related to his mental illness diagnosis of Schizophrenia. He continues to present with cognitive impairment which impedes his ability to care of himself, and requires multiple supports and external structures. Assessment What has happened this shift: Patient in recreation room watching TV at the beginning of shift. Pt continues to be pleasant and cooperative with care, and jokes with staff and peers alike. Pt endorses A/VH but denies other symptoms. Pt pacing the halls when not watching TV. PRN Ativan 2mg given this evening to good effect; pt compliant with medications and attended HS snack then paced the halls for a while. He watched TV while charging his ankle bracelet then turned in to sleep. S/I, H/I: Denies A/VH: +A/VH, Responding to IS but per his baseline. Pt is improved from last evening. Sleep: Sleeps well through the night. Refer to sleep assessment. ADL's: Independent Group attendance: N/A Were meds taken: Yes Any med S/E: None observed nor reported Mental Status Exam Appearance: Neat, clean. Appropriately dressed in personal clothing Eye contact: Good Behavior: Cooperative and pleasant, pacing halls, engaging with staff and peers appropriately Speech: Clear, soft, regular rate/rhythm Mood: Euthymic Affect: Animated Thought process: Linear Thought Content: Making jokes and small talk with staff, movies Cognition: A&O/4 Insight: Fair Judgment: Fair Interventions PRN's used: Ativan 2mg, Nicotine Lozenge Therapeutic interventions: Ensured contract for safety, maintained a safe and therapeutic environment, provided clear and simple instructions, encouraged physical activity and accompanied pt. for his daily walk, and maintained Q 15 min safety checks. Restraints/seclusion/emergency medication: N/A Justification of Continued Inpatient Treatment: Pt. continues to require a safe and supportive environment while awaiting placement. Per note, accepted at [facility] but they are unable to accommodate his parole needs at this time; they will continue to work on placement.
[2020-03-26 08:00] VITALS: BP 120/62
[2020-03-26] MEDS: sennosides 8.6mg tablet PO SCH ×2 (08:20→20:11)
[2020-03-26] MEDS: atomoxetine 40 MG capsule PO SCH (08:20)
[2020-03-26] MEDS: lactobacillus rhamnosus 10,000 MMU CELLS/CAPSULE PO SCH ×2 (08:20→20:11)
[2020-03-26] MEDS: docusate sod 100mg capsule PO SCH ×2 (08:20→20:11)
[2020-03-26] MEDS: benztropine 1mg tablet PO SCH ×2 (08:20→20:12)
[2020-03-26] MEDS: naproxen 500mg tablet PO SCH ×2 (08:20→16:32)
[2020-03-26] MEDS: pantoprazole 40mg Tablet.DR PO SCH (08:20)
--- NOTE | 2020-03-26 12:36 | NUR ---
F/u (03/26): PO 75-100% avg heart healthy diet meeting needs. +39kg since admit possibly r/t medications that increase appetite and weight gain. Pt diet order includes double portions of protein, salads, etc. Per PA note pt continuing program for weight loss and exercise. Last BM 03/25. Rec: 1. continue heart healthy diet 2. Double eggs q breakfast, double meat BIDLD; extra fruits/vegetables on meal trays; salad BIDLD all per MD diet order 3. routine bowel care 4. wt per rx Addendum: 03/26/20 at [address] Amended: Links added.
[2020-03-26] MEDS: clozapine 25mg tablet PO SCH (13:12)
[2020-03-26] MEDS: clozapine 100mg tablet PO SCH ×2 (13:12→20:10)
--- NOTE | 2020-03-26 17:18 | NUR ---
Nursing Progress Note: 27A Legal hold: LPS Client on involuntary status for GD Report received from Dominique GOULD with use of SBAR Why they are here: Patient had been discharged previously with follow up at [facility] Team. [place] [facility] [place] was not able to obtain, food, [place] [facility] [place], or clothing and a 5150 for GD was written. Patient returned within hours of discharge. At time of return patient denied any symptoms related to his mental illness diagnosis of Schizophrenia. He continues to present with cognitive impairment which impedes his ability to care of himself, and requires multiple supports and external structures. Assessment What has happened this shift: Patient spent most of the morning sleeping awaking only for breakfast and then morning medications. Pt then spent afternoon after lunch walking around unit then spent time in the group room watching cat videos. Patient not very talkative today and denied any auditory or visual hallucinations, nor appeared to be experiencing any at this time. No PRNs were requested this shift. S/I, H/I: Denies A/VH: Denies at this time nor does he appear to be responding to any. Sleep: Slept well through plumbing manager. ADL's: Independent Group attendance: N/A Were meds taken: Yes Any med S/E: None observed nor reported Mental Status Exam Appearance: Neat, clean. Appropriately dressed in personal clothing Eye contact: Good Behavior: Cooperative and pleasant, pacing halls, engaging with staff and peers appropriately Speech: Clear, soft, regular rate/rhythm Mood: Euthymic Affect: calm, but not flat. Thought process: Linear Thought Content: That task at hand, when medications are due. Cognition: A&O/4 Insight: Fair Judgment: Fair Interventions PRN's used: none Therapeutic interventions: Ensured contract for safety, maintained a safe and therapeutic environment, provided clear and simple instructions, ambulated the unit and maintained Q 15 min safety checks. Restraints/seclusion/emergency medication: N/A Justification of Continued Inpatient Treatment: Pt. continues to require a safe and supportive environment while awaiting placement.
[2020-03-26 20:00] VITALS: BP 132/70
[2020-03-26] MEDS: atorvastatin 10mg tablet PO SCH (20:11)
[2020-03-26] MEDS: LORazepam 1 MG tablet PO PRN (22:08)
--- NOTE | 2020-03-27 05:54 | NUR ---
Nursing Progress Note: Legal hold: LPS Client on involuntary status for GD Report received from Stu RN with use of SBAR Why are they here: Patient had been discharged previously with follow up at [facility] Team. Upon assessment by the [facility], it was determined patient was not able to obtain, food, jail, or clothing and a 5150 for GD was written. Patient returned within hours of discharge. At time of return patient denied any symptoms related to his mental illness diagnosis of Schizophrenia. He continues to present with cognitive impairment which impedes his ability to care of himself, and requires multiple supports and external structures. Assessment What has happened this shift: Patient in recreation room watching TV at the beginning of shift. Pt continues to be pleasant and cooperative with care, and jokes with staff and peers alike.Pt not actively responding to A/VH this evening, though he endorses. PRN Ativan 2mg given this evening to good effect; pt compliant with medications and attended HS snack then charged his ankle bracelet. Chatted with roommate before turning into sleep; pt awoke once around 0130 to check the time then returned to sleep. S/I, H/I: Denies A/VH: +A/VH, Endorses but not observed to be responding to IS Sleep: Sleeps well. Refer to sleep assessment. ADL's: Independent Group attendance: N/A Were meds taken: Yes Any med S/E: None observed nor reported Mental Status Exam Appearance: Neat, clean. Appropriately dressed in personal clothing Eye contact: Good Behavior: Cooperative and pleasant, pacing halls, engaging with staff and peers appropriately Speech: Clear, soft, regular rate/rhythm Mood: Euthymic Affect: Animated Thought process: Linear Thought Content: Making jokes and small talk with staff, movies Cognition: A&O/4 Insight: Fair Judgment: Fair Interventions PRN's used: Ativan 2mg Therapeutic interventions: Ensured contract for safety, maintained a safe and therapeutic environment, provided clear and simple instructions, encouraged physical activity and accompanied pt. for his daily walk, and maintained Q 15 min safety checks. Restraints/seclusion/emergency medication: N/A Justification of Continued Inpatient Treatment: Pt. continues to require a safe and supportive environment while awaiting placement. Per note, accepted at [facility] but they are unable to accommodate his parole needs at this time; they will continue to work on placement.
[2020-03-27] MEDS: docusate sod 100mg capsule PO SCH ×2 (08:01→21:16)
[2020-03-27] MEDS: sennosides 8.6mg tablet PO SCH ×2 (08:01→21:17)
[2020-03-27] MEDS: naproxen 500mg tablet PO SCH ×2 (08:01→17:50)
[2020-03-27] MEDS: atomoxetine 40 MG capsule PO SCH (08:01)
[2020-03-27] MEDS: pantoprazole 40mg Tablet.DR PO SCH (08:01)
[2020-03-27] MEDS: benztropine 1mg tablet PO SCH ×2 (08:01→21:19)
[2020-03-27] MEDS: lactobacillus rhamnosus 10,000 MMU CELLS/CAPSULE PO SCH ×2 (08:01→21:17)
[2020-03-27 08:05] VITALS: BP 113/72
[2020-03-27] MEDS: clozapine 25mg tablet PO SCH (13:03)
[2020-03-27] MEDS: clozapine 100mg tablet PO SCH ×2 (13:03→21:18)
--- NOTE | 2020-03-27 17:17 | NUR ---
Nursing Progress Note: Legal hold: LPS Client on involuntary status for GD Report received from nurse with use of SBAR: LUIS FERNANDO Guerrero Why are they here: Patient had been discharged previously with follow up [place] [facility]. [place] [facility] [place] was not able to obtain, food, nursing home, or clothing and a 5150 for GD was written. Patient returned within hours of discharge. At time of return patient denied any symptoms related to his mental illness diagnosis of Schizophrenia. He continues to present with cognitive impairment which impedes his ability to care of himself, and requires multiple supports and external structures. Assessment What has happened this shift: Pt was up for breakfast, he was cooperative with morning meds. Pt charged his ankle bracelet in the community room before lunch. Pt denies depression, anxiety, SI/HI/AH/VH. Pt did not appear to be responding to any internal stimuli this shift. Pt went for a walk accompanied by PCT and a security analyst after lunch. Education provided to patient and staff that the walks are for exercise to promote weight loss so getting him snacks from the vending machines or stores in the area is not conducive to this. Addressed his 80+ pound wt gain since admission as well as increased cholesterol levels with the addition of a statin medication as well as his most recent blood glucose from lab draw on 03/24/20, blood glucose level was 231. Pt stated that the doctor told him it was fine, that he was young and fit. Asked pt which doctor, pt stated the doctor from before he came here. Reality orientation attempted that yes he is young but no longer fit. Pt is gravely disabled and did not seem to comprehend the risk initial weight gain entailed for his health. S/I, H/I: Pt denies A/VH: Pt denies Sleep: Pt slept 7 hours last night per sleep assessments, takes naps throughout the day. ADL's: Independent Group attendance: No Were meds taken: Yes Any med S/E: None noted or reported. Mental Status Exam Appearance: Tall, obese dark haired young man dressed in street clothes. Eye contact: Good Behavior: Pleasant and cooperative. Speech: Clear, soft, audible Mood: Good Affect: Appropriate, child-like. Thought process: Linear Thought Content: Focused on food, snacks, wanted to know if the cafeteria would be open during his walk today. Cognition: A/O X4 Insight: Fair Judgment: Fair Interventions PRN's used: None Therapeutic interventions: 1:1 assessment, therapeutic conversation, medication administration/education/monitoring, daily walk, nutrition education, education on risks of continued weight gain and consumption of sugary and high fat snacks, reality orientation, positive reinforcement, Q 15 min safety checks. Restraints/seclusion/emergency medication: N/A Justification of Continued Inpatient Treatment: Pt continues to require a safe and supportive environment while awaiting placement.
[2020-03-27 20:00] VITALS: BP 117/74
[2020-03-27] MEDS: atorvastatin 10mg tablet PO SCH (21:18)
[2020-03-27] MEDS: LORazepam 1 MG tablet PO PRN (21:22)
--- NOTE | 2020-03-28 03:19 | NUR ---
NURSING PROGRESS NOTE Legal hold: LPS conserved Client on involuntary status for GD Report received from Stu GOULD with use of SBAR Why are they here: Patient had been discharged previously with follow up at [facility] Team. Upon assessment by the [facility] [place], it was determined patient was not able to obtain, food, group home, or clothing and a 5150 for GD was written. Patient returned within hours of discharge. At time of return patient denied any symptoms related to his mental illness diagnosis of Schizophrenia. He continues to present with cognitive impairment which impedes his ability to care of himself, and requires multiple supports and external structures. Assessment What has happened this shift: Pt walks the halls smiling and laughing at times. He is observed socializing with peers happily. Pt is elevated and responding to internal stimuli. He does not admit this, but can be seen making gestures by himself in the hallway, smiling. He agrees to take prn ativan 2 mg with good effect. S/I, H/I: Denies A/VH: observed responding to internal stimuli Sleep:see sleep assessment notation ADL's: Independent Group attendance: No Were Meds taken: Yes Any med S/E: No Mental Status Exam Appearance: clean Eye contact: Fair Behavior:paces, smiles, watches TV Speech: Normal Mood: Euthymic Affect: content Thought process: Linear Thought Content: circumstantial Cognition: Alert Insight: Poor Judgment: Poor Interventions PRN's used: ativan 2 mg Therapeutic interventions: AM assessment; prompts to shower and attend groups and get up for meals; medication administration/education/monitoring, Q 15 min safety checks. Restraints/seclusion/emergency medication: N/A Justification of Continued Inpatient Treatment: Pt is gravely disabled, he is LPS conserved, he continues to need medication adjustment and monitoring and a safe and supportive environment
[2020-03-28 08:00] VITALS: BP 103/67
[2020-03-28] MEDS: pantoprazole 40mg Tablet.DR PO SCH (08:25)
[2020-03-28] MEDS: benztropine 1mg tablet PO SCH ×2 (08:25→21:39)
[2020-03-28] MEDS: atomoxetine 40 MG capsule PO SCH (08:26)
[2020-03-28] MEDS: sennosides 8.6mg tablet PO SCH ×2 (08:26→21:39)
[2020-03-28] MEDS: naproxen 500mg tablet PO SCH ×2 (08:26→17:36)
[2020-03-28] MEDS: docusate sod 100mg capsule PO SCH ×2 (08:26→21:39)
[2020-03-28] MEDS: lactobacillus rhamnosus 10,000 MMU CELLS/CAPSULE PO SCH ×2 (08:26→21:40)
--- NOTE | 2020-03-28 10:00 | NUR ---
Group Therapy: Process Group This Clinicians goal for this process group were as follows: (1) Share psychoeducation about core beliefs and how these beliefs shapes how one views reality. (2) Compare and contrast how people with different core beliefs might interpret an identical situation differently. (3) Discuss how changing negative core beliefs to more balanced, helpful, and rational alternatives can lead to improved behaviors and mood. (4) Process Clients thoughts and reflections on this topic within the group milieu. Patient identified experiencing the following levels of anxiety, depression, and anger/irritability while present in the group milieu. Anxiety: 09/15 Depression: 09/15 Anger/irritability: 09/15 Patient presented as open and cooperative within the group milieu. Patient was dressed in personal, nondescript clothing that were appropriate for the milieu. Patient's thought content was clear, and concrete. Patient's thought process was clear, coherent, and linear. This Clinician did not observe Patient responding to any internal stimuli during session. During the process group, Patient reported that he was feeling well. He reported that he was, "Hanging out," and "Walking the [place]." Patient presented as verbally engaged and nonobtrusive within the group milieu. He made comments during the process group that indicated that he understood how one's core beliefs could influence the ways people view situations. Yakov Lopez MA, MATTHIEU Addendum: 03/29/20 at 0817 by Yakov Lopez SS Amended: Links added.
[2020-03-28] MEDS: NICOTINE POLACRILEX 2 MG LOZENGE BC PRN (13:31)
[2020-03-28] MEDS: clozapine 100mg tablet PO SCH ×2 (13:31→21:40)
[2020-03-28] MEDS: clozapine 25mg tablet PO SCH (13:31)
--- NOTE | 2020-03-28 13:59 | NUR ---
Placement Presenting Issues: SS received t/c from [facility]'s office, spoke with Diann, per t/c [facility] in [place] has a bed available for pt and [facility] is working w/[facility] to coordinate transportation for next 04/04. Diann request that a Physician's Report be completed & signed by the treating physician & faxed to JUDI's office. JUDI will check with [facility] to see if pt will need a COVID test, as he recently received one. Interventions: SS met w/pt and gave him the news, pt was excited and thanked SS for SS efforts in communicating w/the placement. SS gave pt some homework, pt will need to call his [facility] and check on his eye exam and determine when that date is and get info re how he will get there. SS informed attending physician and requested that he complete & sign a Physician's Report to facilitate pt's placement. Plan: SS will f/u with attending physician re the Physician's Report & continue to coordinate placement & transportation services w/[facility] & [facility]. Shirin Carlos LCSW Addendum: 03/28/20 at 1406 by Shirin BEAN Amended: Links added.
--- NOTE | 2020-03-28 14:40 | NUR ---
Nursing Progress Note: Legal hold: LPS Client on involuntary status for GD Report received from nurse with use of SBAR: LUIS FERNANDO Guerrero Why are they here: Patient had been discharged previously with follow up at [facility] Team. Upon assessment by the [facility], it was determined patient was not able to obtain, food, residential, or clothing and a 5150 for GD was written. Patient returned within hours of discharge. At time of return patient denied any symptoms related to his mental illness diagnosis of Schizophrenia. He continues to present with cognitive impairment which impedes his ability to care of himself, and requires multiple supports and external structures. Assessment What has happened this shift: Received pt. sleeping in bed at the beginning of the shift, he awoke for breakfast and then retreated back to bed as is his routine. 1:1 completed at bedside, pt. continues to deny all MH s/s, and presents as animated and pleasant. Pt. later takes daily walk with security and staff member to promote health, and reports he walked up the stairs all the way from the basement. Pt receives news from the that he is accepted at [facility], and reports excitement. He is up during the remainder of the shift interacting appropriately with peers. S/I, H/I: Denies A/VH: Pt. denies, no s/s of response to internal stimuli Sleep: Pt. reports he slept well, sleep hours are 7.5 ADL's: Independent Group attendance: Yes Were meds taken: Yes Any med S/E: None Mental Status Exam Appearance: Presents as neat, and appropriately dressed. Eye contact: Good Behavior: Cooperative and pleasant Speech: Soft and WNL Mood: Pleasant Affect: Animated Thought process: Linear Thought Content: WNL Cognition: A&O X4 Insight: Fair Judgment: Fair Interventions PRN's used: None Therapeutic interventions: Ensured contract for safety, maintained a safe and therapeutic environment, provided clear and simple instructions, encouraged physical activity, and maintained Q 15 min safety checks. Restraints/seclusion/emergency medication: N/A Justification of Continued Inpatient Treatment: Pt. continues to require a safe and supportive environment. He has been accepted at [facility] and will be discharging next , 04/04/20.
[2020-03-28 20:00] VITALS: BP 130/85
[2020-03-28] MEDS ORDERED: OLANZAPINE 5 MG TABLET PO PRN (20:05)
[2020-03-28] MEDS: LORazepam 1 MG tablet PO PRN (21:40)
[2020-03-28] MEDS: atorvastatin 10mg tablet PO SCH (21:40)
--- NOTE | 2020-03-29 00:50 | NUR ---
NURSING PROGRESS NOTE Legal hold: LPS conserved Client on involuntary status for GD Report received from Juan GOULD with use of SBAR Why are they here: Patient had been discharged previously with follow up at [facility] Team. Upon assessment by the [facility], it was determined patient was not able to obtain, food, long term, or clothing and a 5150 for GD was written. Patient returned within hours of discharge. At time of return patient denied any symptoms related to his mental illness diagnosis of Schizophrenia. He continues to present with cognitive impairment which impedes his ability to care of himself, and requires multiple supports and external structures. Assessment What has happened this shift: PT is sitting in rec room socializing with peers.He smiles and makes good eye contact. He is cooperative with 1:1 assessment and medication compliant. He is very excited about being accepted to [facility] and feels "ready to go". He watches an alien movie before bed while charging his ankle monitor. He requests an ativan just before bed, which is given to him. S/I, H/I: Denies A/VH:none observed or reported Sleep:see sleep assessment notation ADL's: Independent Group attendance: No Were Meds taken: Yes Any med S/E: None reported, none observed Mental Status Exam Appearance: clean, in pastel shorts and shirt Eye contact: Fair Behavior:paces, smiles, watches TV Speech: Normal Mood: Euthymic Affect: content Thought process: Linear Thought Content: WNL Cognition: Alert Insight: Poor Judgment: Poor Interventions PRN's used: ativan 2 mg Therapeutic interventions: AM assessment; prompts to shower and attend groups and get up for meals; medication administration/education/monitoring, Q 15 min safety checks. Restraints/seclusion/emergency medication: N/A Justification of Continued Inpatient Treatment: Pt is awaiting placement at [facility] in [place] scheduled for 04/04
[2020-03-29] MEDS: calcium carbonate 500mg chew tablet PO PRN ×2 (06:13→23:32)
[2020-03-29] MEDS: benztropine 1mg tablet PO SCH ×2 (07:39→20:55)
[2020-03-29] MEDS: pantoprazole 40mg Tablet.DR PO SCH (07:39)
[2020-03-29] MEDS: sennosides 8.6mg tablet PO SCH ×2 (07:39→20:56)
[2020-03-29] MEDS: naproxen 500mg tablet PO SCH ×2 (07:39→17:40)
[2020-03-29] MEDS: atomoxetine 40 MG capsule PO SCH (07:39)
[2020-03-29] MEDS: lactobacillus rhamnosus 10,000 MMU CELLS/CAPSULE PO SCH ×2 (07:39→20:55)
[2020-03-29] MEDS: docusate sod 100mg capsule PO SCH ×2 (07:39→20:56)
[2020-03-29] MEDS: NICOTINE POLACRILEX 2 MG LOZENGE BC PRN (07:50)
[2020-03-29 08:00] VITALS: BP 140/80
--- NOTE | 2020-03-29 11:48 | NUR ---
Nursing Progress Note: Legal hold: LPS Client on involuntary status for GD Report received from nurse with use of SBAR: Avril Mueller RN Why are they here: Patient had been discharged previously with follow up at [facility] Team. Upon assessment by the [facility], it was determined patient was not able to obtain, food, prison, or clothing and a 5150 for GD was written. Patient returned within hours of discharge. At time of return patient denied any symptoms related to his mental illness diagnosis of Schizophrenia. He continues to present with cognitive impairment which impedes his ability to care of himself, and requires multiple supports and external structures. Assessment What has happened this shift: Received pt. sleeping in bed at the beginning of the shift, he awoke early and presented as animated and upbeat. 1:1 completed, pt. continues to deny all MH s/s, and states, "I'm just excited about leaving!" He is not observed to be internally preoccupied, and no delusional statements made. His pulse is slightly elevated, possibly r/t his excitement, however PRN Propranolol not needed r/t medication parameters, will continue to monitor. Pt. retreats to bed mid morning for a nap as is his routine, he continues to be observed to be interacting appropriately with his peers. S/I, H/I: Denies A/VH: Pt. denies, no s/s of response to internal stimuli Sleep: Pt. reports he slept well, sleep hours are 7.5 ADL's: Independent Group attendance: Yes Were meds taken: Yes Any med S/E: None Mental Status Exam Appearance: Presents as neat, and appropriately dressed. Eye contact: Good Behavior: Cooperative and pleasant Speech: Soft and WNL Mood: Pleasant Affect: Animated Thought process: Linear Thought Content: WNL Cognition: A&O X4 Insight: Fair Judgment: Fair Interventions PRN's used: None Therapeutic interventions: Ensured contract for safety, maintained a safe and therapeutic environment, provided clear and simple instructions, encouraged physical activity (daily walks), and maintained Q 15 min safety checks. Restraints/seclusion/emergency medication: N/A Justification of Continued Inpatient Treatment: Pt. continues to require a safe and supportive environment. He has been accepted at [facility] in [place] and will be discharging next , 04/04/20.
[2020-03-29] MEDS: clozapine 100mg tablet PO SCH ×2 (13:07→20:56)
[2020-03-29] MEDS: clozapine 25mg tablet PO SCH (13:07)
[2020-03-29 19:00] VITALS: BP 127/85
[2020-03-29] MEDS: atorvastatin 10mg tablet PO SCH (20:55)
[2020-03-29] MEDS: LORazepam 1 MG tablet PO PRN (23:01)
--- NOTE | 2020-03-30 02:11 | NUR ---
NURSING PROGRESS NOTE Legal hold: LPS conserved Client on involuntary status for GD Report received from Juan GOULD with use of SBAR Why are they here: Patient had been discharged previously with follow up at [facility] Team. Upon assessment by the [facility], it was determined patient was not able to obtain, food, senior living, or clothing and a 5150 for GD was written. Patient returned within hours of discharge. At time of return patient denied any symptoms related to his mental illness diagnosis of Schizophrenia. He continues to present with cognitive impairment which impedes his ability to care of himself, and requires multiple supports and external structures. Assessment What has happened this shift: PT is sitting in rec room socializing with peers and watching TV. He smiles and makes good eye contact. He is cooperative with 1:1 assessment and medication compliant. He is very excited about being accepted to [facility] and feels "ready to go". He watches a TV show before bed while charging his ankle monitor. He requests an ativan at 2300, which is given to him. Patient went to bed after and slept well. S/I, H/I: Denies A/VH: none observed or reported Sleep: asleep at this time ADL's: Independent Group attendance: No Were Meds taken: Yes Any med S/E: None reported, none observed Mental Status Exam Appearance: clean and appropriate Eye contact: Good Behavior: Smiles, appears happy Speech: Normal Mood: Euthymic Affect: content Thought process: Linear Thought Content: WNL Cognition: Alert Insight: Poor Judgment: Poor Interventions PRN's used: ativan 2 mg, TUMS Therapeutic interventions: 1:1 assessment, maintained a safe and therapeutic environment, provided clear and simple instructions, monitored behavior and need for intervention, provided reassurance as needed, encouragement to perform personal hygiene, limit setting, positive reinforcement, Q 15 minute safety checks. Justification of Continued Inpatient Treatment: Pt is awaiting placement at [facility] scheduled for 04/04
[2020-03-30 08:00] VITALS: BP 122/66
[2020-03-30] MEDS: docusate sod 100mg capsule PO SCH ×2 (08:11→20:33)
[2020-03-30] MEDS: lactobacillus rhamnosus 10,000 MMU CELLS/CAPSULE PO SCH ×2 (08:11→20:33)
[2020-03-30] MEDS: benztropine 1mg tablet PO SCH ×2 (08:11→20:33)
[2020-03-30] MEDS: pantoprazole 40mg Tablet.DR PO SCH (08:11)
[2020-03-30] MEDS: atomoxetine 40 MG capsule PO SCH (08:11)
[2020-03-30] MEDS: naproxen 500mg tablet PO SCH ×2 (08:11→17:37)
[2020-03-30] MEDS: sennosides 8.6mg tablet PO SCH ×2 (08:11→20:33)
[2020-03-30] MEDS: clozapine 100mg tablet PO SCH ×2 (13:42→20:33)
[2020-03-30] MEDS: clozapine 25mg tablet PO SCH (13:43)
--- NOTE | 2020-03-30 17:18 | NUR ---
Nursing Progress Note: Legal hold: LPS Client on involuntary status for GD Report received from nurse with use of SBAR: Avril Mueller RN Why are they here: Patient had been discharged previously with follow up at [facility] Team. Upon assessment by the [facility], it was determined patient was not able to obtain, food, [facility], or clothing and a 5150 for GD was written. Patient returned within hours of discharge. At time of return patient denied any symptoms related to his mental illness diagnosis of Schizophrenia. He continues to present with cognitive impairment which impedes his ability to care of himself, and requires multiple supports and external structures. Assessment What has happened this shift: Patient sleeping until breakfast and medications. Patient a bit difficult to arouse. Patient reports to RN that he is leaving to [facility] and is very happy about his new environment. Patient watches t.v. In rec room. Socializes with staff and peers. He is bright and smiling. S/I, H/I: Denies A/VH: Denies. Sleep: Slept in until noon ADL's: Independent Group attendance: Yes Were meds taken: Yes Any med S/E: None Mental Status Exam Appearance: Well groomed in personal attire. Eye contact: Good Behavior: Calm, cooperative. Speech: Soft and clear. Mood: Pleasant Affect: Animated Thought process: Linear Thought Content: Discharge. Cognition: A&O X4 Insight: Fair Judgment: Fair Interventions PRN's used: None Therapeutic interventions: Ensured contract for safety, maintained a safe and therapeutic environment, provided clear and simple instructions, encouraged physical activity (daily walks), and maintained Q 15 min safety checks. Restraints/seclusion/emergency medication: N/A Justification of Continued Inpatient Treatment: Pt. continues to require a safe and supportive environment. He has been accepted at [facility] in [place] and will be discharging next , 04/04/20.
[2020-03-30 19:00] VITALS: BP 108/78
[2020-03-30] MEDS: atorvastatin 10mg tablet PO SCH (20:33)
[2020-03-30] MEDS: LORazepam 1 MG tablet PO PRN (23:54)
--- NOTE | 2020-03-31 03:18 | NUR ---
Nursing Progress Note: Legal hold: LPS Client on involuntary status for GD Report received from LUIS FERNANDO Martinez with use of SBAR Why are they here: Patient had been discharged previously with follow up at [facility] Team. Upon assessment by the [facility], it was determined patient was not able to obtain, food, care home, or clothing and a 5150 for GD was written. Patient returned within hours of discharge. At time of return patient denied any symptoms related to his mental illness diagnosis of Schizophrenia. He continues to present with cognitive impairment which impedes his ability to care of himself, and requires multiple supports and external structures. Assessment What has happened this shift: The patient was seen at bedside for 1:1. He reports that he's leaving to [facility] and care. "I'll have more freedom." He says that he's happy to be going there. The patient continues to be happy and smiling, "hoping they have a pizza green party before I go." He continues to be social with other clients and staff as well. Requested Ativan at midnight for anxiety, then went back to bed. S/I, H/I: Denies A/VH: Denies. Sleep: See sleep assessment ADL's: Independent Group attendance: No night groups Were meds taken: Yes Any med S/E: None reported or observed Mental Status Exam Appearance: Well groomed in personal attire. Eye contact: Good Behavior: Calm, cooperative, happy, sociable. Speech: Soft and clear. Mood: Pleasant Affect: Animated Thought process: Linear Thought Content: Discharge. Cognition: A&O X4 Insight: Fair Judgment: Fair Interventions PRN's used: Ativan Therapeutic interventions: Ensured contract for safety, maintained a safe and therapeutic environment, provided clear and simple instructions, encouraged physical activity (daily walks), and maintained Q 15 min safety checks. Restraints/seclusion/emergency medication: N/A Justification of Continued Inpatient Treatment: Pt. continues to require a safe and supportive environment. He has been accepted at [facility] in [place] and will be discharging next , 04/04/20
[2020-03-31 07:00] VITALS: BP 100/61
[2020-03-31] MEDS: docusate sod 100mg capsule PO SCH ×2 (08:15→20:37)
[2020-03-31] MEDS: lactobacillus rhamnosus 10,000 MMU CELLS/CAPSULE PO SCH ×2 (08:15→20:37)
[2020-03-31] MEDS: naproxen 500mg tablet PO SCH ×2 (08:15→17:18)
[2020-03-31] MEDS: pantoprazole 40mg Tablet.DR PO SCH (08:15)
[2020-03-31] MEDS: atomoxetine 40 MG capsule PO SCH (08:16)
[2020-03-31] MEDS: benztropine 1mg tablet PO SCH ×2 (08:16→20:37)
[2020-03-31] MEDS: sennosides 8.6mg tablet PO SCH ×2 (08:16→20:37)
[2020-03-31] MEDS: clozapine 100mg tablet PO SCH ×2 (13:28→20:38)
[2020-03-31] MEDS: clozapine 25mg tablet PO SCH (13:28)
--- NOTE | 2020-03-31 16:58 | NUR ---
Nursing Progress Note: Legal hold: LPS Client on involuntary status for GD Report received from nurse with use of SBAR: Avril Mueller RN Why are they here: Patient had been discharged previously with follow up at [facility] Team. Upon assessment by the [facility], it was determined patient was not able to obtain, food, senior living, or clothing and a 5150 for GD was written. Patient returned within hours of discharge. At time of return patient denied any symptoms related to his mental illness diagnosis of Schizophrenia. He continues to present with cognitive impairment which impedes his ability to care of himself, and requires multiple supports and external structures. Assessment What has happened this shift: Patient sleeping at shift change. Awakens for medications and breakfast, then goes back to bed per his usual routine. Patient gets up at 11:00 and watches movies and socializes with peers and staff. Patient is requesting [employer] before he leaves. Patient is smiling and happy. S/I, H/I: Denies A/VH: Denies. Sleep: Slept in until 11:00. ADL's: Independent Group attendance: No groups. Were meds taken: Yes Any med S/E: None Mental Status Exam Appearance: Neat and clean in street clothing. Eye contact: Good Behavior: Calm, cooperative. Speech: Soft and clear. Mood: Pleasant Affect: Animated Thought process: Linear Thought Content: Discharge. Cognition: A&O X4 Insight: Fair Judgment: Fair Interventions PRN's used: None Therapeutic interventions: Ensured contract for safety, maintained a safe and therapeutic environment, provided clear and simple instructions, encouraged physical activity (daily walks), and maintained Q 15 min safety checks. Restraints/seclusion/emergency medication: N/A Justification of Continued Inpatient Treatment: Pt. continues to require a safe and supportive environment. He has been accepted at [facility] in [place] and will be discharging next , 04/04/20.
[2020-03-31] MEDS: acetaminophen 325mg tablet PO PRN (17:23)
[2020-03-31 20:01] VITALS: BP 128/76
[2020-03-31] MEDS: atorvastatin 10mg tablet PO SCH (20:38)
--- NOTE | 2020-04-01 03:48 | NUR ---
Nursing Progress Note: Legal hold: LPS Client on involuntary status for GD Report received from LUIS FERNANDO Martinez with use of SBAR Why are they here: Patient had been discharged previously with follow up at [facility] Team. Upon assessment by the [facility], it was determined patient was not able to obtain, food, [facility], or clothing and a 5150 for GD was written. Patient returned within hours of discharge. At time of return patient denied any symptoms related to his mental illness diagnosis of Schizophrenia. He continues to present with cognitive impairment which impedes his ability to care of himself, and requires multiple supports and external structures. Assessment What has happened this shift: The patient was walking the halls and having what appears to be a conversation with his inner voices. As he does this, he makes a lot of finger movements, as he is walking. He is clearly happy that he's being discharged to [facility] this week. He continues to be pleasant and smiling a lot. He spends his evenings pacing or watching videos. he continues to be compliant with medications, then goes to bed. S/I, H/I: Denies A/VH: Denies. Sleep: See sleep assessment ADL's: Independent Group attendance: No night groups Were meds taken: Yes Any med S/E: None reported or observed Mental Status Exam Appearance: Well groomed in personal attire. Eye contact: Good Behavior: Calm, cooperative, happy, sociable. Speech: Soft and clear. Mood: Pleasant Affect: Animated Thought process: Linear Thought Content: Discharge. Cognition: A&O X4 Insight: Fair Judgment: Fair Interventions PRN's used: Therapeutic interventions: Ensured contract for safety, maintained a safe and therapeutic environment, provided clear and simple instructions, encouraged physical activity (daily walks), and maintained Q 15 min safety checks. Restraints/seclusion/emergency medication: N/A Justification of Continued Inpatient Treatment: Pt. continues to require a safe and supportive environment. He has been accepted at [facility] in [place] and will be discharging next , 04/04/20
[2020-04-01 08:00] VITALS: BP 100/60
[2020-04-01] MEDS: naproxen 500mg tablet PO SCH ×2 (08:05→18:02)
[2020-04-01] MEDS: atomoxetine 40 MG capsule PO SCH (08:05)
[2020-04-01] MEDS: pantoprazole 40mg Tablet.DR PO SCH (08:05)
[2020-04-01] MEDS: lactobacillus rhamnosus 10,000 MMU CELLS/CAPSULE PO SCH ×2 (08:05→20:40)
[2020-04-01] MEDS: docusate sod 100mg capsule PO SCH ×2 (08:05→20:40)
[2020-04-01] MEDS: sennosides 8.6mg tablet PO SCH ×2 (08:05→20:40)
[2020-04-01] MEDS: benztropine 1mg tablet PO SCH ×2 (08:05→20:40)
[2020-04-01] MEDS: clozapine 100mg tablet PO SCH ×2 (13:32→20:40)
[2020-04-01] MEDS: clozapine 25mg tablet PO SCH (13:32)
--- NOTE | 2020-04-01 16:45 | NUR ---
Nursing Progress Note: Legal hold: LPS Client on involuntary status for GD Report received from nurse with use of SBAR: LUIS FERNANDO Martinez Why are they here: Patient had been discharged previously with follow up at [facility] Team. Upon assessment by the [facility], it was determined patient was not able to obtain, food, prison, or clothing and a 5150 for GD was written. Patient returned within hours of discharge. At time of return patient denied any symptoms related to his mental illness diagnosis of Schizophrenia. He continues to present with cognitive impairment which impedes his ability to care of himself, and requires multiple supports and external structures. Assessment What has happened this shift: Received pt. laying in bed sleeping at the beginning of the shift, he awoke for breakfast and remained up throughout the rest of the shift aside from an afternoon nap. 1:1 completed at bedside, pt. continues to deny all MH s/s, and is not observed to be responding to any internal stimuli. Pt sitting up watching t.v. and is happy about d/c on . S/I, H/I: Denies A/VH: Pt. denies, no s/s of response to internal stimuli Sleep: brief nap in afternoon ADL's: Independent Group attendance: No Were meds taken: Yes Any med S/E: None Mental Status Exam Appearance: Presents as neat, and appropriately dressed. Eye contact: Good Behavior: Cooperative and pleasant Speech: Soft and WNL Mood: Pleasant Affect: Animated Thought process: Linear Thought Content: WNL Cognition: A&O X4 Insight: Fair Judgment: Fair Interventions PRN's used: None Therapeutic interventions: Ensured contract for safety, maintained a safe and therapeutic environment, provided clear and simple instructions, encouraged physical activity with positive reinforcement, and maintained Q 15 min safety checks. Restraints/seclusion/emergency medication: N/A Justification of Continued Inpatient Treatment: Pt. continues to require a safe and supportive environment while awaiting placement.
[2020-04-01 20:38] VITALS: BP 126/89
[2020-04-01] MEDS: atorvastatin 10mg tablet PO SCH (20:40)
[2020-04-01] MEDS: LORazepam 1 MG tablet PO PRN (21:12)
--- NOTE | 2020-04-02 02:18 | NUR ---
Nursing Progress Note: Legal hold: LPS Client on involuntary status for GD Report received from LUIS FERNANDO Martinez with use of SBAR Why are they here: Patient had been discharged previously with follow up at [facility] Team. Upon assessment by the [facility] [place], it was determined patient was not able to obtain, food, intermediate, or clothing and a 5150 for GD was written. Patient returned within hours of discharge. At time of return patient denied any symptoms related to his mental illness diagnosis of Schizophrenia. He continues to present with cognitive impairment which impedes his ability to care of himself, and requires multiple supports and external structures. Assessment What has happened this shift: The patient was seated in the rec room watching tv. He continues to be excited about his departure to [facility]. He states that he feels good, "no problems, I feel good, not suicidal, not seeing things." The patient spends the evening watching videos or walking the halls. When he paces the jama, he can be heard talking to himself. One time, as he walked by this nurse heard him, "I'm not getting on the ground" fairly loud. He was starting to get loud, so he was asked not to respond so loud. He quit talking to himself, then went to his room. S/I, H/I: Denies A/VH: Denies. Sleep: See sleep assessment ADL's: Independent Group attendance: No night groups Were meds taken: Yes Any med S/E: None reported or observed Mental Status Exam Appearance: Well groomed obese young man in personal attire. Eye contact: Good Behavior: Calm, cooperative, happy, sociable, RIS. Speech: Soft and clear. Mood: Pleasant Affect: Animated Thought process: Linear Thought Content: Discharge. Cognition: A&O X4 Insight: Fair Judgment: Fair Interventions PRN's used: Therapeutic interventions: Ensured contract for safety, maintained a safe and therapeutic environment, provided clear and simple instructions, encouraged physical activity (daily walks), and maintained Q 15 min safety checks. Restraints/seclusion/emergency medication: N/A Justification of Continued Inpatient Treatment: Pt. continues to require a safe and supportive environment. He has been accepted at [facility] in [place] and will be discharging next , 04/04/20
[2020-04-02 08:00] VITALS: BP 99/48
[2020-04-02] MEDS: benztropine 1mg tablet PO SCH ×2 (08:07→20:18)
[2020-04-02] MEDS: pantoprazole 40mg Tablet.DR PO SCH (08:07)
[2020-04-02] MEDS: atomoxetine 40 MG capsule PO SCH (08:07)
[2020-04-02] MEDS: sennosides 8.6mg tablet PO SCH ×2 (08:07→20:18)
[2020-04-02] MEDS: docusate sod 100mg capsule PO SCH ×2 (08:07→20:18)
[2020-04-02] MEDS: lactobacillus rhamnosus 10,000 MMU CELLS/CAPSULE PO SCH ×2 (08:07→20:19)
[2020-04-02] MEDS: naproxen 500mg tablet PO SCH ×2 (08:07→17:48)
[2020-04-02] MEDS ORDERED: OLAN5TAB26 PO (13:01)
[2020-04-02] MEDS ORDERED: NAPR-56 PO (13:01)
[2020-04-02] MEDS ORDERED: SENN-173 PO (13:01)
[2020-04-02] MEDS ORDERED: PROP10TA10 PO (13:01)
[2020-04-02] MEDS ORDERED: NICO-668 BC (13:01)
[2020-04-02] MEDS ORDERED: CLOZ25TA12 PO (13:01)
[2020-04-02] MEDS ORDERED: DOCU100C40 PO (13:01)
[2020-04-02] MEDS ORDERED: PANT40TA4 PO (13:01)
[2020-04-02] MEDS ORDERED: CALC300T4 PO (13:01)
[2020-04-02] MEDS ORDERED: CLOZ100T13 PO ×2 (13:01)
[2020-04-02] MEDS ORDERED: ATOM40CA PO (13:01)
[2020-04-02] MEDS ORDERED: LACT1CAP26 PO (13:01)
[2020-04-02] MEDS ORDERED: BENZ1TAB7 PO (13:01)
[2020-04-02] MEDS ORDERED: ATOR10TA PO (13:01)
[2020-04-02] MEDS ORDERED: ATI1T PO (13:01)
[2020-04-02] MEDS: clozapine 25mg tablet PO SCH (13:22)
[2020-04-02] MEDS: clozapine 100mg tablet PO SCH ×2 (13:22→20:19)
--- NOTE | 2020-04-02 13:54 | NUR ---
Reassessment: Pt continues with 75-100% PO intake with the exception of refusing lunch yesterday, still meeting nutrient needs while receiving double protein TID and additional food at mealtimes. [facility] 04/01. No further nutrition intervention warranted at this time. Will continue to follow. Rec: 1. continue heart healthy diet 2. Double eggs q breakfast, double meat BIDLD; extra fruits/vegetables on meal trays; salad BIDLD all per MD diet order 3. routine bowel care 4. wt per rx Addendum: 04/02/20 at [address] Amended: Links added.
--- NOTE | 2020-04-02 14:04 | NUR ---
Nursing Progress Note: Legal hold: LPS Client on involuntary status for GD Report received from nurse with use of SBAR: LUIS FERNANDO Guerrero Why are they here: Patient had been discharged previously with follow up at [facility] Team. Upon assessment by the [facility], it was determined patient was not able to obtain, food, skilled nursing, or clothing and a 5150 for GD was written. Patient returned within hours of discharge. At time of return patient denied any symptoms related to his mental illness diagnosis of Schizophrenia. He continues to present with cognitive impairment which impedes his ability to care of himself, and requires multiple supports and external structures. Assessment What has happened this shift: Received pt. laying in bed sleeping at the beginning of the shift, he awoke for breakfast and returned to bed after breakfast. Pt. continues to deny all MH s/s, and is not observed to be responding to any internal stimuli. Pt got himself dressed and he shaved and went on a walk after lunch. Pt was happy and in a good mood. Pt excited for discharge. S/I, H/I: Denies A/VH: Pt. denies, no s/s of response to internal stimuli Sleep: brief nap in afternoon ADL's: Independent Group attendance: No Were meds taken: Yes Any med S/E: None Mental Status Exam Appearance: Presents as neat, and appropriately dressed. Eye contact: Good Behavior: Cooperative and pleasant Speech: Soft and WNL Mood: Pleasant Affect: Animated Thought process: Linear Thought Content: WNL Cognition: A&O X4 Insight: Fair Judgment: Fair Interventions PRN's used: None Therapeutic interventions: Ensured contract for safety, maintained a safe and therapeutic environment, provided clear and simple instructions, encouraged physical activity with positive reinforcement, and maintained Q 15 min safety checks. Restraints/seclusion/emergency medication: N/A Justification of Continued Inpatient Treatment: Pt. continues to require a safe and supportive environment while awaiting placement.
[2020-04-02] MEDS: atorvastatin 10mg tablet PO SCH (20:19)
[2020-04-02 20:37] VITALS: BP 119/76
[2020-04-02] MEDS: LORazepam 1 MG tablet PO PRN (21:32)
--- NOTE | 2020-04-03 02:16 | NUR ---
Nursing Progress Note: Legal hold: LPS Client on involuntary status for GD Report received from LUIS FERNANDO Martinez with use of SBAR Why are they here: Patient had been discharged previously with follow up at [facility] Team. Upon assessment by the [facility], it was determined patient was not able to obtain, food, jail, or clothing and a 5150 for GD was written. Patient returned within hours of discharge. At time of return patient denied any symptoms related to his mental illness diagnosis of Schizophrenia. He continues to present with cognitive impairment which impedes his ability to care of himself, and requires multiple supports and external structures. Assessment What has happened this shift: the patient was in the halls socializing with other clients. he's wearing bright new clothes, and has his usual smile. "All I can tell you is that I'm positively happy to be leaving . I hope they have a pizza constitution party for me." He spent the rest of the evening watching "Stranger Things" in the rec room. He denies SI/HI or AV/H. The patient went to bed soon after HS med pass. S/I, H/I: Denies A/VH: Denies. Sleep: See sleep assessment ADL's: Independent Group attendance: No night groups Were meds taken: Yes Any med S/E: None reported or observed Mental Status Exam Appearance: Well groomed obese young man in new personal attire. Eye contact: Good Behavior: Calm, cooperative, happy, sociable. Speech: Soft and clear. Mood: Pleasant Affect: Animated Thought process: Linear Thought Content: Discharge. Cognition: A&O X4 Insight: Fair Judgment: Fair Interventions PRN's used: Nicotine lozenge, Ativan Therapeutic interventions: Ensured contract for safety, maintained a safe and therapeutic environment, provided clear and simple instructions, encouraged physical activity (daily walks), and maintained Q 15 min safety checks. Restraints/seclusion/emergency medication: N/A Justification of Continued Inpatient Treatment: Pt. continues to require a safe and supportive environment. He has been accepted at [facility] in [place] and will be discharging next , 04/04/20
[2020-04-03] MEDS: benztropine 1mg tablet PO SCH ×2 (07:24→20:26)
[2020-04-03] MEDS: lactobacillus rhamnosus 10,000 MMU CELLS/CAPSULE PO SCH ×2 (07:24→20:26)
[2020-04-03] MEDS: pantoprazole 40mg Tablet.DR PO SCH (07:24)
[2020-04-03] MEDS: docusate sod 100mg capsule PO SCH ×2 (07:24→20:26)
[2020-04-03] MEDS: sennosides 8.6mg tablet PO SCH ×2 (07:24→20:26)
[2020-04-03] MEDS: atomoxetine 40 MG capsule PO SCH (07:24)
[2020-04-03] MEDS: magnesium hydroxide 30ml (MOM) UD suspension PO PRN (07:40)
[2020-04-03] MEDS: naproxen 500mg tablet PO SCH ×2 (07:40→16:41)
[2020-04-03 08:31] VITALS: BP 125/73
--- NOTE | 2020-04-03 12:13 | NUR ---
Placement Interventions: Pt's accepted @ [facility] in [place], is waiting for [facility] to arrange transportation. Interventions: SS had t/c with [facility], per t/c pt will be picked up tomorrow morning @ 8:15 AM. SS informed pt & care team. Plan: Pt to d/c tomorrow and be transported by [facility] diesel truck driver to [place]. Shirin Carlos LCSW Addendum: 04/03/20 at 1217 by Shirin Carlos Amended: Links added.
[2020-04-03] MEDS: clozapine 100mg tablet PO SCH ×2 (13:41→20:27)
[2020-04-03] MEDS: clozapine 25mg tablet PO SCH (13:41)
--- NOTE | 2020-04-03 14:32 | NUR ---
Nursing Progress Note: [employer] Legal hold: LPS Client on involuntary status for GD Report received from LUIS FERNANDO Guerrero with use of SBAR Why are they here: Patient had been discharged previously with follow up at [facility] Team. [facility], it was determined patient was not able to obtain, food, mcc, or clothing and a 5150 for GD was written. Patient returned within hours of discharge. At time of return patient denied any symptoms related to his mental illness diagnosis of Schizophrenia. He continues to present with cognitive impairment which impedes his ability to care of himself, and requires multiple supports and external structures. Assessment What has happened this shift: Client was awake to begin this shift and was cordial with medications as well as assessment. Client is due to leave tomorrow and is future and goal oriented. He came for breakfasr and consumed 100 percent of his meal. He is active and social on the unit and has had no behavioral issues as of this entry at 0852 hours. Client was soon back in bed and remains there as of this writing at 1045 hours. Client visible on unit at 1100 hours. Client is excited to discharge tomorrow and feels as though going to [place] will be, " a good deal". Client is having a going away democrat today and therefore he is in excellent mood. He has had no behavioral issues this shift and it has been honor to work with this young man. S/I, H/I: Denies A/VH: Denies. Sleep: See sleep assessment ADL's: Independent Group attendance: Were meds taken: Yes Any med S/E: None reported or observed Mental Status Exam Appearance: appropriate for unit Eye contact: Good Behavior: Calm, cooperative, happy, sociable. Speech: Soft and clear. Mood: Pleasant Affect: Animated Thought process: Linear Thought Content: Discharge. Cognition: A&O X4 Insight: Fair Judgment: Fair Interventions PRN's used: Therapeutic interventions: Ensured contract for safety, maintained a safe and therapeutic environment, provided clear and simple instructions, encouraged physical activity (daily walks), and maintained Q 15 min safety checks. Restraints/seclusion/emergency medication: N/A Justification of Continued Inpatient Treatment: Pt. continues to require a safe and supportive environment. He has been accepted at [facility] in [place] and will be discharging next , 04/04/20
--- NOTE | 2020-04-03 16:52 | NUR ---
1:1-Closure Presenting Issues: Pt will be d/c from [facility] tomorrow morning and transported to [facility] in [place]. Interventions: SS met with pt and engaged pt in closure activities and preparation activities for his new placement. SS showed pt pictures of the area where his new placement is at. Pt expressed gratitude for the staff here and is looking forward to leaving tomorrow. Plan: Pt to d/c tomorrow morning, [facility] racing car driver will pick him up @ 8:15 am. Shirin Carlos LCSW Addendum: 04/03/20 at 1658 by Shirin BEAN Amended: Links added.
[2020-04-03 19:42] VITALS: BP 132/84
[2020-04-03] MEDS: atorvastatin 10mg tablet PO SCH (20:26)
--- NOTE | 2020-04-03 21:08 | NUR ---
Nursing Progress Note: [employer] Legal hold: LPS Client on involuntary status for GD Report received from LUIS FERNANDO Peraza with use of SBAR Why are they here: Patient had been discharged previously with follow up at [facility] Team. Upon assessment by the [facility], it was determined patient was not able to obtain, food, correction, or clothing and a 5150 for GD was written. Patient returned within hours of discharge. At time of return patient denied any symptoms related to his mental illness diagnosis of Schizophrenia. He continues to present with cognitive impairment which impedes his ability to care of himself, and requires multiple supports and external structures. Assessment What has happened this shift: Pt was walking in the jama at change of shift. Pt is smiling and says he is happy to be going to placement. Pt spent evening watching show about the [place] and getting his belongings ready to go for tomorrow. Pt had snacks with the group and watched tv before going to bed. S/I, H/I: Denies A/VH: Denies. Sleep: See sleep assessment ADL's: Independent Group attendance: Were meds taken: Yes Any med S/E: None reported or observed Mental Status Exam Appearance: appropriate for unit Eye contact: Good Behavior: Calm, cooperative, happy, sociable. Speech: Soft and clear. Mood: Pleasant Affect: Animated Thought process: Linear Thought Content: Discharge. Cognition: A&O X4 Insight: Fair Judgment: Fair Interventions PRN's used: Therapeutic interventions: Ensured contract for safety, maintained a safe and therapeutic environment, provided clear and simple instructions, encouraged physical activity (daily walks), and maintained Q 15 min safety checks. Restraints/seclusion/emergency medication: N/A Justification of Continued Inpatient Treatment: Pt. continues to require a safe and supportive environment. He has been accepted at [facility] in [place] and will be discharging next , 04/04/20 Addendum: 04/04/20 at 0311 by Jonelle Lancaster RN pt woke at 3am and is anxious about leaving and pacing the jama because he is excited to go. Pt took ativan and went back to bed.
[2020-04-04] MEDS: LORazepam 1 MG tablet PO PRN (03:01)
[2020-04-04 07:53] VITALS: BP 123/88
[2020-04-04] MEDS: lactobacillus rhamnosus 10,000 MMU CELLS/CAPSULE PO SCH (07:59)
[2020-04-04] MEDS: benztropine 1mg tablet PO SCH (07:59)
[2020-04-04] MEDS: calcium carbonate 500mg chew tablet PO PRN (08:00)
[2020-04-04] MEDS: docusate sod 100mg capsule PO SCH (08:00)
[2020-04-04] MEDS: pantoprazole 40mg Tablet.DR PO SCH (08:00)
[2020-04-04] MEDS: naproxen 500mg tablet PO SCH (08:00)
[2020-04-04] MEDS: sennosides 8.6mg tablet PO SCH (08:00)
[2020-04-04] MEDS: atomoxetine 40 MG capsule PO SCH (08:00)
--- NOTE | 2020-04-04 08:54 | NUR ---
Picked up cake from [employer] for Naiche's going away green party. Took receipt to bet reimbursed through [employer]. MATTHIEU Strange
[2020-04-04] MEDS: magnesium hydroxide 30ml (MOM) UD suspension PO PRN (08:57)
--- NOTE | 2020-04-04 09:21 | NUR ---
Pt was discharged today at 0915. He ambulated off the unit accompanied by [facility] wheelchair van driver and PCT, all belongings returned including ankle cordwood cutter helper, filled prescriptions sent with wheelchair van driver, pt transferred to [facility] in [place].
== END 2020-04-04 09:15 | disposition short-term general hospital (02) | DRG 750 ==
LOC: ADULT MH 11:48
PROVIDERS: ADMIT Psychiatry & Neurology Psychiatry; ATTEND Psychiatry & Neurology Psychiatry
DX: F25.1 Schizoaffective disorder, depressive type (principal); Z59.0 Homelessness; J10.1 Influenza due to other identified influenza virus with other respiratory manifestations; E78.5 Hyperlipidemia, unspecified; R45.851 Suicidal ideations; F17.210 Nicotine dependence, cigarettes, uncomplicated; K59.00 Constipation, unspecified; R10.9 Unspecified abdominal pain; K21.9 Gastro-esophageal reflux disease without esophagitis; L70.9 Acne, unspecified; E78.00 Pure hypercholesterolemia, unspecified; R00.0 Tachycardia, unspecified; E66.01 Morbid (severe) obesity due to excess calories; F90.9 Attention-deficit hyperactivity disorder, unspecified type; E78.1 Pure hyperglyceridemia; M25.511 Pain in right shoulder; R19.7 Diarrhea, unspecified; G89.29 Other chronic pain; I10 Essential (primary) hypertension; Z20.828 Contact with and (suspected) exposure to other viral communicable diseases; Z78.9 Other specified health status; Z68.42 Body mass index [BMI] 45.0-49.9, adult; Z79.899 Other long term (current) drug therapy
CPT/HCPCS: 36415; 71045; 73030; 80053; 80061; 80076; 83036; 83605; 85025; 87040; 87081; 87502; 87503; 93005; 97110; 97116; 97124; 97161; 99285; Q0177; Z7610

== ENCOUNTER 2023-11-09 15:34 | Inpatient (IN) | payer MEDICAID, SELFPAY ==
[~2023-11-09] VITALS: Ht 185.4 cm; Wt 126.2 kg
[~2023-11-09 15:34] MED LIST changes: +ATI1T PO; +ATOM40CA PO; -ATOM80CA PO; +ATOR10TA PO; +BENZ1TAB78 PO; +CALC300T4 PO; +CLOZ100T13 PO; -CLOZ100T31 PO; +CLOZ25TA12 PO; -CLOZ25TA36 PO; +DOCU100C40 PO; -DOCU100C41 PO; +LACT1CAP26 PO; +NAPR-56 PO; +NICO-668 BC; -OLAN5TAB26 PO; +OLAN5TAB75 PO; +PANT40TA54 PO; +PROP10TA10 PO; -SENN-263 PO; +SENN-362 PO; -SERT100T PO
[2023-11-09 17:22] LABS: BASOPHILS # (AUTO) 0.1 X10'3 (0-0.2); EOSINOPHILS # (AUTO) 0.2 X10'3 (0-0.9); MEAN PLATELET VOLUME 8.4 FL (7.4-10.4)
[2023-11-09 17:24] LABS: BASOPHILS % (AUTO) 0.4 % (0-1); EOSINOPHILS % (AUTO) 1.4 % (0-6); HEMATOCRIT 48.8 % (42.0-52.0); HEMOGLOBIN 16.1 g/dl (14.0-17.9); LYMPHOCYTES # (AUTO) 3.2 X10'3 (1.1-4.8); LYMPHOCYTES % (AUTO) 21.1 % (21-51); MEAN CORPUSCULAR HEMOGLOBIN 28.6 PG (27.0-31.0); MEAN CORPUSCULAR HGB CONC 32.9 g/dL (33.0-36.5); MONOCYTES # (AUTO) 0.9 X10'3 (0-0.9); MONOCYTES % (AUTO) 6.1 % (2-12); NEUTROPHILS # (AUTO) 10.7 X10'3 (1.8-7.7); PLATELET COUNT 222 X10'3 (140-440); RED BLOOD COUNT 5.62 X10'6 (4.70-6.10); RED CELL DISTRIBUTION WIDTH 14.9 % (11.5-14.5)
[2023-11-09 17:38] LABS: BILIRUBIN,URINE NEGATIVE (Neg); CLARITY,URINE SLIGHTLY CLOUDY (Clear); COLOR,URINE YELLOW (Yellow); GLUCOSE, URINE NEGATIVE (Neg); KETONES,URINE NEGATIVE (Neg); LEUKOCYTE ESTERASE ,URINE NEGATIVE (Neg); NITRITES, URINE NEGATIVE (Neg); OCCULT BLOOD,URINE NEGATIVE (Neg); PH,URINE 5.5 (4.8-8.0); PROTEIN,URINE NEGATIVE (Neg); UROBILINOGEN,URINE 0.2 E.U/dL (0.2-1.0)
[2023-11-09 17:40] LABS: UA COLLECTION TYPE VOIDED
[2023-11-09 17:44] LABS: ANION GAP 12 (8-16); BLOOD UREA NITROGEN 9 MG/DL (7-18); BUN/CREATININE RATIO 10.5 (10.0-20.0); CALCIUM 8.8 MG/DL (8.5-10.1); CHLORIDE 108 MMOL/L (99-107); CREATININE 0.86 MG/DL (0.60-1.10); ETHANOL < 10 MG/DL (<10); GLUCOSE 103 MG/DL (70-104); POTASSIUM 4.1 MMOL/L (3.5-5.1); SODIUM 146 MMOL/L (135-145); THYROID STIMULATING HORMONE 1.03 ulU/ml (0.34-4.50); TOTAL CARBON DIOXIDE 26.5 MMOL/L (24-32); eCRCL 139 ML/MIN; eGFR > 90 ML/MIN
[2023-11-09 17:46] LABS: MUCUS STRANDS MANY /LPF (Neg); SQUAMOUS EPITHELIAL CELL,UR FEW /LPF (FEW)
[2023-11-09 17:47] LABS: BACTERIA,URINE 1+ /HPF (Neg); RBC,URINE 50-100 /HPF (0-2)
[2023-11-09 17:50] LABS: URINE AMPHETAMINE SCREEN NEGATIVE (Neg); URINE BARBITUATE SCREEN NEGATIVE (Neg); URINE BENZODIAZEPINES SCREEN NEGATIVE (Neg); URINE CANNABINOID SCREEN NEGATIVE (Neg); URINE COCAINE SCREEN NEGATIVE (Neg); URINE METHADONE SCREEN NEGATIVE (Neg); URINE OPIATE SCREEN NEGATIVE (Neg); URINE PHENCYCLIDINE SCREEN NEGATIVE (Neg)
[2023-11-09] MEDS ORDERED: SEMA1.7P SUBCUT (18:00)
[2023-11-09] MEDS ORDERED: OLAN15TA20 PO (18:00)
[2023-11-09] MEDS ORDERED: SERT-434 PO (18:00)
[2023-11-09] MEDS ORDERED: IBUP-1984 PO (18:00)
[2023-11-09] MEDS ORDERED: METF-436 PO (18:00)
[2023-11-09] MEDS ORDERED: CHOL20002 PO (18:00)
[2023-11-09] MEDS ORDERED: HYDR-3686 PO (18:00)
[2023-11-09] MEDS ORDERED: ACET325T55 PO (18:00)
[2023-11-09] MEDS ORDERED: CLOZ100T23 PO (18:00)
[2023-11-09 18:02] LABS: LARGE PLATELETS MODERATE; PLATELET ESTIMATE NORMAL
[2023-11-09] MEDS ORDERED: acetaminophen 325mg tablet PO PRN (19:30)
[2023-11-09] MEDS ORDERED: hydrOXYzine 25 MG tablet PO SCH (20:00)
[2023-11-09] MEDS: metFORMIN 500mg tablet PO SCH (20:03)
[2023-11-09] MEDS: sulfamethoxazole/trimethoprim DS (800/160mg) tablet PO SCH (20:03)
[2023-11-09] MEDS: sennosides 8.6mg tablet PO SCH (20:03)
[2023-11-09] MEDS: atorvastatin 10mg tablet PO SCH (20:03)
[2023-11-09] MEDS: benztropine 1mg tablet PO SCH (20:03)
[2023-11-09] MEDS: OLANZapine 5mg rapidly disint. tablet PO SCH (20:07)
[2023-11-09] MEDS ORDERED: CLOZAPINE PO SCH (21:00)
[2023-11-10] MEDS ORDERED: ibuprofen 200mg tablet PO PRN
[2023-11-10] MEDS: sertraline 50mg tablet PO SCH (08:24)
[2023-11-10] MEDS: pantoprazole 40mg Tablet.DR PO SCH (08:25)
[2023-11-10] MEDS: cholecalciferol (vitamin D3) 1,000 unit (25mcg) tablet PO SCH (08:25)
[2023-11-10 10:37] VITALS: BP 123/69; PULSE 101; RESP 16; TEMP 97; O2SAT 95
[2023-11-10] MEDS ORDERED: mag hydrox/Alum hydrox/simeth 30ml oral suspension PO PRN (10:50)
[2023-11-10] MEDS ORDERED: loperamide 2mg capsule PO PRN (10:50)
[2023-11-10] MEDS ORDERED: magnesium hydroxide 30ml (MOM) UD suspension PO PRN (10:50)
[2023-11-10] MEDS ORDERED: acetaminophen 325mg tablet PO PRN ×2 (10:50)
[2023-11-10] MEDS: hydrOXYzine 25 MG tablet PO PRN (11:09)
[2023-11-10 11:10] VITALS: RESP 16; O2SAT 95
[2023-11-10] MEDS: NICOTINE POLACRILEX 2 MG LOZENGE BC PRN (11:21)
[2023-11-10] MEDS: clozapine 100mg tablet PO SCH ×2 (14:12→21:26)
[2023-11-10 19:00] VITALS: RESP 16; O2SAT 96
[2023-11-10] MEDS: SEMAGLUTIDE 1.7 MG/0.75 ML SQ SCH (19:30)
[2023-11-10 20:00] VITALS: BP 112/70; PULSE 83; RESP 16; TEMP 98.1; O2SAT 96
[2023-11-11 07:00] VITALS: RESP 16; O2SAT 96
[2023-11-11 08:00] VITALS: BP 115/60; PULSE 84; RESP 16; TEMP 97.6; O2SAT 94
[2023-11-11] MEDS: nicotine 21mg patch - 24 hr TD SCH (08:00)
[2023-11-11 10:05] LABS: CHOL/HDL RATIO 4.7 (0.00-4.99); CHOLESTEROL 131 MG/DL (0-200); HDL CHOLESTEROL 28 MG/DL (35-60); LDL CHOLESTEROL 78 MG/DL (50-100); TRIGLYCERIDES 179 MG/DL (20-135)
[2023-11-11 10:53] LABS: HEMOGLOBIN A1C 5.5 % (4.5-6.2)
[2023-11-11 19:00] VITALS: RESP 16; O2SAT 99
[2023-11-11 20:00] VITALS: BP 113/74; PULSE 119; RESP 16; TEMP 97.8; O2SAT 99
[2023-11-11] MEDS: haloperidol 1mg tablet PO SCH (20:48)
[2023-11-11] MEDS: olanzapine 10mg tablet PO SCH (20:49)
[2023-11-12 07:00] VITALS: RESP 12; O2SAT 100
[2023-11-12 07:26] VITALS: BP 101/56; PULSE 89; RESP 12; TEMP 97.2; O2SAT 100
[2023-11-12 19:34] VITALS: BP 114/81; PULSE 115; RESP 17; TEMP 97.8; O2SAT 96
[2023-11-12 19:36] VITALS: RESP 17; O2SAT 96
[2023-11-12] MEDS: propranolol 10mg tablet PO PRN (20:03)
[2023-11-13 07:20] VITALS: RESP 19; O2SAT 98
[2023-11-13 08:00] VITALS: BP 114/63; PULSE 72; RESP 12; TEMP 98.3; O2SAT 96
[2023-11-13] MEDS: metFORMIN 500mg tablet PO SCH (18:10)
[2023-11-13 19:00] VITALS: RESP 17; O2SAT 95
[2023-11-13 20:00] VITALS: BP 119/73; PULSE 128; RESP 17; TEMP 98.2; O2SAT 95
[2023-11-14 07:20] VITALS: BP 114/63; PULSE 81; RESP 16; TEMP 97; O2SAT 96
[2023-11-14 08:23] LABS: BASOPHILS # (AUTO) 0.1 X10'3 (0-0.2); BASOPHILS % (AUTO) 0.6 % (0-1); EOSINOPHILS # (AUTO) 0.2 X10'3 (0-0.9); HEMATOCRIT 42.7 % (42.0-52.0); HEMOGLOBIN 14.3 g/dl (14.0-17.9); LYMPHOCYTES # (AUTO) 2.4 X10'3 (1.1-4.8); LYMPHOCYTES % (AUTO) 26.5 % (21-51); MEAN CORPUSCULAR HEMOGLOBIN 29.1 PG (27.0-31.0); MEAN CORPUSCULAR HGB CONC 33.5 g/dL (33.0-36.5); MEAN CORPUSCULAR VOLUME 86.7 FL (78-98); MEAN PLATELET VOLUME 8.7 FL (7.4-10.4); MONOCYTES # (AUTO) 0.8 X10'3 (0-0.9); MONOCYTES % (AUTO) 9.1 % (2-12); NEUTROPHILS # (AUTO) 5.6 X10'3 (1.8-7.7); NEUTROPHILS % (AUTO) 61.8 % (42-75); PLATELET COUNT 181 X10'3 (140-440); RED BLOOD COUNT 4.92 X10'6 (4.70-6.10); RED CELL DISTRIBUTION WIDTH 14.6 % (11.5-14.5)
[2023-11-14 12:23] VITALS: RESP 16; O2SAT 96
[2023-11-14 19:00] VITALS: RESP 18; O2SAT 99
[2023-11-14 19:46] VITALS: BP 139/81; PULSE 112; RESP 18; TEMP 97.2; O2SAT 99
[2023-11-14] MEDS ORDERED: haloperidol 1mg tablet PO SCH (21:00)
[2023-11-14] MEDS ORDERED: haloperidol 5mg tablet PO SCH (21:33)
[2023-11-14] MEDS: haloperidol 5mg tablet PO SCH (21:52)
[2023-11-15 07:55] VITALS: BP 95/47; PULSE 84; RESP 14; TEMP 97.7; O2SAT 94
[2023-11-15 08:56] VITALS: RESP 14; O2SAT 94
[2023-11-15 19:00] VITALS: RESP 18; O2SAT 99
[2023-11-15 19:49] VITALS: BP 117/78; PULSE 114; RESP 16; TEMP 97.8; O2SAT 96
[2023-11-16 07:00] VITALS: BP 112/71; PULSE 83; RESP 14; TEMP 97.4; O2SAT 93
[2023-11-16 19:00] VITALS: RESP 18; O2SAT 98
[2023-11-16 20:00] VITALS: BP 129/81; PULSE 107; RESP 18; TEMP 97.5; O2SAT 98
[2023-11-16] MEDS: haloperidol 5mg tablet PO SCH (20:06)
[2023-11-17 07:00] VITALS: BP 119/72; PULSE 97; RESP 16; TEMP 98.3; O2SAT 92
[2023-11-17 19:00] VITALS: RESP 20; O2SAT 98
[2023-11-17 20:00] VITALS: BP 102/64; PULSE 120; RESP 20; TEMP 97.8; O2SAT 98
[2023-11-17] MEDS: OLANZAPINE 5 MG TABLET PO SCH (20:41)
[2023-11-18 07:00] VITALS: BP 98/60; PULSE 77; RESP 16; TEMP 98.1; O2SAT 97
[2023-11-18 20:00] VITALS: BP 112/76; PULSE 108; RESP 17; TEMP 97.7; O2SAT 92
[2023-11-18] MEDS: haloperidol 5mg tablet PO SCH (20:36)
[2023-11-19 07:00] VITALS: RESP 12; O2SAT 96
[2023-11-19 07:46] VITALS: BP 103/70; PULSE 82; RESP 12; TEMP 98.3; O2SAT 96
[2023-11-19 19:00] VITALS: RESP 16; O2SAT 97
[2023-11-19 20:00] VITALS: BP 114/79; PULSE 105; RESP 16; TEMP 98.4; O2SAT 97
[2023-11-20 07:00] VITALS: RESP 12; O2SAT 98
[2023-11-20 07:27] VITALS: BP 119/72; PULSE 67; RESP 12; TEMP 98.4; O2SAT 98
[2023-11-20 19:00] VITALS: RESP 17; O2SAT 99
[2023-11-20 19:55] VITALS: BP 112/67; PULSE 97; RESP 17; TEMP 98.5; O2SAT 99
[2023-11-21 07:00] VITALS: BP 93/45; PULSE 85; RESP 18; TEMP 97.2; O2SAT 92
[2023-11-21 19:00] VITALS: RESP 18; O2SAT 94
[2023-11-21 20:00] VITALS: BP 114/75; PULSE 124; RESP 18; TEMP 97.8; O2SAT 94
[2023-11-21] MEDS: haloperidol 5mg tablet PO SCH (21:42)
[2023-11-22 07:00] VITALS: RESP 16; O2SAT 94
[2023-11-22 07:41] VITALS: BP 103/58; PULSE 87; RESP 16; TEMP 97.2; O2SAT 94
[2023-11-22 19:00] VITALS: RESP 18; O2SAT 95
[2023-11-22 20:00] VITALS: BP 132/83; PULSE 108; RESP 18; TEMP 97.2; O2SAT 95
[2023-11-23 07:00] VITALS: BP 100/43; PULSE 81; RESP 18; TEMP 97.4; O2SAT 97
[2023-11-23] MEDS ORDERED: NICO-907 BC (18:51)
[2023-11-23] MEDS ORDERED: BENZ1TAB78 PO (18:51)
[2023-11-23] MEDS ORDERED: HALO5TAB PO (18:51)
[2023-11-23] MEDS ORDERED: ATOR10TA PO (18:51)
[2023-11-23] MEDS ORDERED: PANT40TA54 PO (18:51)
[2023-11-23] MEDS ORDERED: CLOZ100T13 PO (18:51)
[2023-11-23] MEDS ORDERED: HYDR-3686 PO (18:51)
[2023-11-23] MEDS ORDERED: NICO-687 TD (18:51)
[2023-11-23] MEDS ORDERED: CHOL20002 PO (18:51)
[2023-11-23] MEDS ORDERED: SERT-434 PO (18:51)
[2023-11-23] MEDS ORDERED: METF-436 PO (18:51)
[2023-11-23] MEDS ORDERED: CLOZ100T23 PO (18:51)
[2023-11-23] MEDS ORDERED: PROP10TA10 PO (18:51)
[2023-11-23 19:00] VITALS: RESP 16; O2SAT 99
[2023-11-23 20:28] VITALS: BP 119/66; PULSE 73; RESP 16; TEMP 97.2; O2SAT 99
[2023-11-24 07:30] VITALS: BP 128/81; PULSE 92; RESP 12; TEMP 97.1; O2SAT 98
[2023-11-24 07:55] VITALS: RESP 12; O2SAT 98
[2023-11-24 19:00] VITALS: RESP 16; O2SAT 99
[2023-11-24 19:50] VITALS: BP 118/78; PULSE 105; RESP 16; TEMP 97.9; O2SAT 99
[2023-11-25 07:00] VITALS: RESP 16; O2SAT 96
[2023-11-25 08:00] VITALS: BP 129/85; PULSE 88; RESP 16; TEMP 97.8; O2SAT 96
== END 2023-11-25 14:28 | disposition home or self-care (01) | DRG 750 ==
LOC: ER 15:36 → ED HOLD 11-10 08:30 → ADULT MH 11-10 10:08
PROVIDERS: ADMIT Psychiatry & Neurology Psychiatry; ATTEND Psychiatry & Neurology Psychiatry
PROC: GZHZZZZ Group Psychotherapy (ICD-10-PCS; principal; 2023-11-10)
DX: F20.9 Schizophrenia, unspecified (principal); R45.851 Suicidal ideations; E11.9 Type 2 diabetes mellitus without complications; F17.210 Nicotine dependence, cigarettes, uncomplicated; E78.00 Pure hypercholesterolemia, unspecified; Z20.822 Contact with and (suspected) exposure to COVID-19; F15.90 Other stimulant use, unspecified, uncomplicated; F41.9 Anxiety disorder, unspecified; F31.9 Bipolar disorder, unspecified; Z79.899 Other long term (current) drug therapy; Z79.84 Long term (current) use of oral hypoglycemic drugs; Z59.00 Homelessness unspecified
CPT/HCPCS: 36415; 80048; 80061; 80305; 80320; 81001; 83036; 83605; 84145; 84443; 85008; 85025; 85651; 87081; 87811; 99285; Q0177

== ENCOUNTER 2024-12-13 20:09 | Inpatient (IN) | payer MEDICAID ==
[~2024-12-13] VITALS: Ht 182.9 cm; Wt 137.6 kg
[~2024-12-13 20:09] MED LIST changes: +ACET-2119 PO; -ATI1T PO; -ATOM40CA PO; -ATOR10TA PO; +ATOR10TA87 PO; -CALC300T4 PO; -CLOZ25TA12 PO; -DOCU100C40 PO; +HALO5TAB PO; +HYDR-3686 PO; +IBUP-1984 PO; -LACT1CAP26 PO; +METF-436 PO; -NAPR-56 PO; -NICO-668 BC; +NICO-687 TD; +NICO-907 BC; -OLAN5TAB75 PO; +SEMA1.7P SUBCUT; +SENN-360 PO; -SENN-362 PO; +SERT-434 PO
[2024-12-13] MEDS ORDERED: CLOZ50TA9 PO (20:49)
[2024-12-13] MEDS ORDERED: HYDR-3686 PO (20:55)
[2024-12-13] MEDS ORDERED: SEMA2.4S (20:55)
[2024-12-13 21:11] LABS: BILIRUBIN,URINE NEGATIVE (Neg); CLARITY,URINE CLEAR (Clear); COLOR,URINE YELLOW (Yellow); GLUCOSE, URINE NEGATIVE (Neg); KETONES,URINE NEGATIVE (Neg); LEUKOCYTE ESTERASE ,URINE NEGATIVE (Neg); NITRITES, URINE NEGATIVE (Neg); OCCULT BLOOD,URINE NEGATIVE (Neg); PROTEIN,URINE NEGATIVE (Neg); UROBILINOGEN,URINE 0.2 E.U/dL (0.2-1.0)
[2024-12-13 21:12] LABS: BASOPHILS % (AUTO) 0.4 % (0-1); EOSINOPHILS # (AUTO) 0.2 X10'3 (0-0.9); EOSINOPHILS % (AUTO) 1.4 % (0-6); HEMATOCRIT 43.8 % (42.0-52.0); HEMOGLOBIN 15.1 g/dl (14.0-17.9); LYMPHOCYTES % (AUTO) 25.1 % (21-51); MEAN CORPUSCULAR HEMOGLOBIN 29.4 PG (27.0-31.0); MEAN CORPUSCULAR HGB CONC 34.4 g/dL (33.0-36.5); MEAN CORPUSCULAR VOLUME 85.3 FL (78-98); MONOCYTES # (AUTO) 0.8 X10'3 (0-0.9); MONOCYTES % (AUTO) 6.9 % (2-12); NEUTROPHILS # (AUTO) 7.8 X10'3 (1.8-7.7); NEUTROPHILS % (AUTO) 66.2 % (42-75); PLATELET COUNT 223 X10'3 (140-440); RED BLOOD COUNT 5.14 X10'6 (4.70-6.10); WHITE BLOOD COUNT 11.8 X10'3 (4.5-11.0)
[2024-12-13 21:17] LABS: UA COLLECTION TYPE CLN CATCH MIDSTREAM
[2024-12-13] MEDS ORDERED: acetaminophen 325mg tablet PO PRN (21:25)
[2024-12-13 21:28] LABS: ALANINE AMINOTRANSFERASE 32 U/L (12-78); ALBUMIN 3.8 G/DL (3.4-5.0); ALBUMIN/GLOBULIN RATIO 1.2 (1.1-1.5); ALKALINE PHOSPHATASE 145 IU/L (46-116); ANION GAP 9 (8-16); ASPARTATE AMINO TRANSFERASE 17 U/L (10-37); BILIRUBIN,TOTAL 0.4 MG/DL (0.1-1.0); BLOOD UREA NITROGEN 6 MG/DL (7-18); BUN/CREATININE RATIO 7.8 (10.0-20.0); CHLORIDE 106 MMOL/L (99-107); CREATININE 0.77 MG/DL (0.60-1.10); GLUCOSE 102 MG/DL (70-104); POTASSIUM 3.5 MMOL/L (3.5-5.1); SALICYLATE 4.7 MG/DL (4.0-20.0); SODIUM 141 MMOL/L (135-145); TOTAL CARBON DIOXIDE 26.1 MMOL/L (24-32); eCRCL 154 ML/MIN; eGFR > 90 ML/MIN
[2024-12-13 21:29] LABS: URINE AMPHETAMINE SCREEN NEGATIVE (Neg); URINE BARBITUATE SCREEN NEGATIVE (Neg); URINE BENZODIAZEPINES SCREEN NEGATIVE (Neg); URINE CANNABINOID SCREEN NEGATIVE (Neg); URINE COCAINE SCREEN NEGATIVE (Neg); URINE METHADONE SCREEN NEGATIVE (Neg); URINE OPIATE SCREEN NEGATIVE (Neg); URINE PHENCYCLIDINE SCREEN NEGATIVE (Neg)
[2024-12-13 21:32] LABS: ACETAMINOPHEN < 2.0 UG/ML (10-30)
[2024-12-13] MEDS: LORazepam 1 MG tablet PO ONE (22:49)
[2024-12-14] MEDS ORDERED: ibuprofen tablet 400 MG TABLET PO SCH
[2024-12-14] MEDS ORDERED: sertraline 50mg tablet PO SCH (08:00)
[2024-12-14] MEDS ORDERED: metFORMIN 500mg tablet PO SCH (08:00)
[2024-12-14] MEDS: sennosides 8.6mg tablet PO SCH (08:56)
[2024-12-14] MEDS: pantoprazole 40mg Tablet.DR PO SCH (08:56)
[2024-12-14] MEDS: benztropine 1mg tablet PO SCH (08:57)
[2024-12-14] MEDS: propranolol 10mg tablet PO SCH (08:57)
[2024-12-14] MEDS: clozapine 25mg tablet PO SCH (08:57)
[2024-12-14] MEDS: clozapine 100mg tablet PO SCH ×2 (13:23→20:58)
[2024-12-14 15:45] VITALS: BP 115/81; PULSE 110; RESP 16; TEMP 97.3; O2SAT 94
[2024-12-14] MEDS ORDERED: loperamide 2mg capsule PO PRN (16:10)
[2024-12-14] MEDS ORDERED: acetaminophen 325mg tablet PO PRN ×2 (16:10→19:00)
[2024-12-14] MEDS: NICOTINE POLACRILEX 2 MG LOZENGE BC PRN (16:56)
[2024-12-14 17:02] VITALS: RESP 16; O2SAT 94
[2024-12-14] MEDS ORDERED: diphenhydrAMINE 25mg capsule PO PRN (18:40)
[2024-12-14] MEDS ORDERED: chlorproMAZINE 25mg tablet PO PRN (18:40)
[2024-12-14] MEDS: hydrOXYzine 25 MG tablet PO PRN (18:44)
[2024-12-14 19:00] VITALS: RESP 16; O2SAT 95
[2024-12-14 20:00] VITALS: BP 140/84; PULSE 99; RESP 17; TEMP 97.5; O2SAT 95
[2024-12-14] MEDS: haloperidol 5mg tablet PO SCH (20:58)
[2024-12-14] MEDS ORDERED: atorvastatin 10mg tablet PO SCH (21:00)
[2024-12-15 07:00] VITALS: RESP 18; O2SAT 95
[2024-12-15] MEDS: nicotine 14mg patch - 24hr TD SCH (07:43)
[2024-12-15 08:00] VITALS: BP 94/84; PULSE 99; RESP 18; TEMP 97.6; O2SAT 91
[2024-12-15 08:09] LABS: CHOL/HDL RATIO 4.6 (0.00-4.99); CHOLESTEROL 144 MG/DL (0-200); HDL CHOLESTEROL 31 MG/DL (35-60); LDL CHOLESTEROL 84 MG/DL (50-100); TRIGLYCERIDES 226 MG/DL (20-135)
[2024-12-15 09:08] LABS: HEMOGLOBIN A1C 5.6 % (4.5-6.2)
[2024-12-15 12:51] VITALS: BP 108/63; PULSE 116; RESP 18
[2024-12-15] MEDS ORDERED: mag hydrox/Alum hydrox/simeth 30ml oral suspension PO PRN (16:10)
[2024-12-15] MEDS ORDERED: loperamide 2mg capsule PO PRN (16:10)
[2024-12-15] MEDS ORDERED: acetaminophen 325mg tablet PO PRN ×2 (16:10)
[2024-12-15] MEDS ORDERED: magnesium hydroxide 30ml (MOM) UD suspension PO PRN (16:10)
[2024-12-15 19:00] VITALS: RESP 14; O2SAT 96
[2024-12-15 20:00] VITALS: BP 117/85; PULSE 105; RESP 14; TEMP 97
[2024-12-15] MEDS: traZODone 50mg tablet PO PRN (22:29)
[2024-12-16] MEDS: mag hydrox/Alum hydrox/simeth 30ml oral suspension PO PRN (03:24)
[2024-12-16 05:44] LABS: THYROID STIMULATING HORMONE 2.41 ulU/ml (0.34-4.50)
[2024-12-16 07:00] VITALS: RESP 20; O2SAT 90
[2024-12-16 08:00] VITALS: BP 117/73; PULSE 93; RESP 20; TEMP 97.2; O2SAT 90
[2024-12-16] MEDS: sertraline 50mg tablet PO SCH (08:07)
[2024-12-16] MEDS: ondansetron 4mg rapidly disintigrating tab PO PRN (10:48)
[2024-12-16 13:28] LABS: HBSAG SCREEN Negative (Negative); HEP B CORE AB, IGM Negative (Negative); HEP B CORE AB, TOT Negative (Negative); HEP B SURF AB Reactive (.)
[2024-12-16 19:00] VITALS: RESP 18; O2SAT 97
[2024-12-16 20:46] VITALS: BP 126/82; PULSE 121; RESP 16; TEMP 97.7
[2024-12-17 07:00] VITALS: RESP 16; O2SAT 95
[2024-12-17 08:00] VITALS: BP 109/54; PULSE 89; RESP 16; TEMP 97.4; O2SAT 95
[2024-12-17 19:42] VITALS: RESP 16
[2024-12-18 07:00] VITALS: RESP 16; O2SAT 97
[2024-12-18 08:00] VITALS: BP 113/64; PULSE 91; RESP 16; TEMP 98.6; O2SAT 97
[2024-12-18] MEDS: magnesium hydroxide 30ml (MOM) UD suspension PO PRN (08:45)
[2024-12-18 19:39] VITALS: RESP 18; O2SAT 96
[2024-12-18 19:40] VITALS: BP 130/85; PULSE 111; RESP 18; TEMP 97.6; O2SAT 96
[2024-12-19 07:00] VITALS: RESP 14; O2SAT 96
[2024-12-19 08:53] VITALS: BP 120/68; PULSE 76; RESP 14; TEMP 98.3; O2SAT 96
[2024-12-19] MEDS: JUVEN Smoothie Arginine/Glut./Ca2+Bmb (Juven 19.3pkt) 240ml cup PO SCH (17:34)
[2024-12-19 19:00] VITALS: RESP 16; O2SAT 96
[2024-12-19 20:32] VITALS: BP 139/84; PULSE 115; RESP 16; TEMP 97.9; O2SAT 96
[2024-12-20 07:00] VITALS: BP 112/61; PULSE 76; RESP 16; TEMP 96.7; O2SAT 92
[2024-12-20 19:00] VITALS: BP 114/67; PULSE 105; RESP 18; TEMP 97.4; O2SAT 93
[2024-12-21 07:00] VITALS: BP 90/49; PULSE 96; RESP 18; TEMP 96.5; O2SAT 93
[2024-12-21 08:00] VITALS: RESP 18; O2SAT 93
[2024-12-21] MEDS ORDERED: povidone-iodine 120ml topical solution TP PRN (08:50)
[2024-12-21 11:47] VITALS: BP 119/73; PULSE 108
[2024-12-21 19:00] VITALS: RESP 16; O2SAT 93
[2024-12-21 20:00] VITALS: BP 119/78; PULSE 110; RESP 16; TEMP 98.3; O2SAT 93
[2024-12-22 07:30] VITALS: BP 86/46; PULSE 86; RESP 22; TEMP 96.9; O2SAT 92
[2024-12-22 09:00] VITALS: BP 135/88
[2024-12-22] MEDS ORDERED: CLOZ100T13 PO (11:00)
[2024-12-22] MEDS ORDERED: SERT200C PO (11:00)
== END 2024-12-22 13:10 | disposition home or self-care (01) | DRG 750 ==
LOC: ER 20:10 → UNDOADMIN 12-14 08:49 → ED HOLD 12-14 08:49 → ADULT MH 12-14 14:37 → ED HOLD 12-14 17:14 → ADULT MH 12-15 08:23
PROVIDERS: ADMIT Psychiatry & Neurology Psychiatry; ATTEND Psychiatry & Neurology Psychiatry
DX: F25.1 Schizoaffective disorder, depressive type (principal); R45.851 Suicidal ideations; E11.9 Type 2 diabetes mellitus without complications; E66.9 Obesity, unspecified; Z59.00 Homelessness unspecified; E78.5 Hyperlipidemia, unspecified; I10 Essential (primary) hypertension; F17.210 Nicotine dependence, cigarettes, uncomplicated; Z79.84 Long term (current) use of oral hypoglycemic drugs; Z68.41 Body mass index [BMI] 40.0-44.9, adult
CPT/HCPCS: 36415; 80053; 80061; 80305; 80329; 81003; 83036; 84443; 85025; 86704; 86705; 86706; 87081; 87340; 87811; 99285; A6250; A6449; Q0177